=== PATIENT | male | born 1950 | race Caucasian/White ===

== ENCOUNTER 2017-02-19 20:19 | Inpatient (IN) ==
[2017-02-19] MEDS ORDERED: KETOROLAC 30 MG/1 ML VIAL IV STA (21:39)
[2017-02-19] MEDS ORDERED: KETOROLAC 30 MG/1 ML VIAL ONE (21:43)
--- NOTE | 2017-02-19 22:35 | Emergency Department Note ---
IJhony Emily, am scribing for, and in the presence of, George Siegel MD 21: 44. Robbin Houston Charles R, MD, personally performed the services described in this documentation, ascribed by Judith Booker in my presence, and it is both accurate and complete . Arrival - Arrival Chief Complaint: Fall Stated Complaint: fall ED Nursing Triage Note: pt to room via metro stretcher. pt lost balance falling earlier today at 1630. pt c/o back pain at this time. Mode of Arrival: Stretcher Limitations: No Limitations Source: Patient Time Seen by Provider: 02/19/17 21:29 - History of Present Illness HPI Narrative: Pt is a 66 y/o male who was brought into ED by EMS for further evaluation of lower back s/p of falling on his right side at home few hours [employer] [employer]. Pt uses walker and lost balance that caused fall. Pt has associated sxs of mild left shoulder and arm soreness, but denies hitting head or bilateral ankle pain. PMHx of peripheral neurology in bilateral lower extremities with prescriptions leg wrap. Onset (ago): hour(s) Consistency: constant Severity: mild, moderate Severity scale (1-10): 4 Quality: aching Allergies/Adverse Reactions: Allergies Allergy/AdvReac Type Severity Reaction Status Date / Time No Known Allergies Allergy Verified 02/19/17 20:46 Home Medications: Home Medications Medication Instructions Recorded Confirmed Type Polyethylene Glycol Powder 17 gm PO DAILY PRN #0 powder 11/16/15 12/08/15 Rx [Miralax] Clorazepate [Tranxene] 7.5 mg PO Q8HR tablet 12/10/15 Rx Docusate Sodium Cap [Colace Cap] 100 mg PO BID capsule 12/10/15 Rx Famotidine Tab [Pepcid Tab] 40 mg PO DAILY tablet 12/10/15 Rx Folic Acid Tab 1 mg PO BID tablet 12/10/15 Rx Furosemide Tab [Lasix Tab] 20 mg PO BID DIURETIC tablet 12/10/15 Rx Lactulose Liquid [Chronulac] 20 gm PO TID PRN #0 udcup 12/10/15 Rx Potassium Chloride Liquid 40 meq PO BID udcup 12/10/15 Rx Skin Healing Oint (Aquaphor) 1 applic TOP DAILY ointment 12/10/15 Rx [Aquaphor] traZODone [Desyrel] 75 mg PO 1800 tablet 12/10/15 Rx Alum/Mag/Simeth Max Str Liquid 30 ml PO Q4H PRN #0 udcup 12/14/15 Rx [Mylanta Max Strength Liquid] Lidocaine 5% Patch [Lidoderm 5% 1 patch TRANSDERM DAILY #30 patch 12/14/15 Rx Patch] fentaNYL 12 MCG/HR PATCH 1 patch TRANSDERM Q3DAY #10 patch 12/14/15 Rx [Duragesic 12 Patch] Hydrocodone/Acetaminophen [[place] 1 each PO Q6-8H PRN #20 tablet 02/19/17 Rx 7.5-325 Tablet] Methocarbamol Tab [Robaxin Tab] 750 mg PO QID PRN #20 tablet 02/19/17 Rx Review of System - Review of System 12 point system: reviewed and no additional remarkable complaints except as stated - Review of System Constitutional: Absent: chills, fever Respiratory: Absent: respiratory distress Cardiovascular: Absent: chest pain, syncope Gastrointestinal: Absent: abdominal pain Musculoskeletal: Present: arm pain (mild left shoulder pain), lower back pain. Absent: back pain, leg pain, neck pain Skin: Absent: rash Neurological: Present: abnormal gait. Absent: headache Medical,Surgical,& Family Hx - Medical History Cardio: History of: Hypertension Psychological: History of: Anxiety Disorders, Depression Neurology: History of: Vertigo HEENT: History of: Eye Problem (WEARS GLASSES, NEAR SIGHTED, CATARACT LEFT EYE) Respiratory: History of: Bronchitis, COPD, Intubation, Pulmonary Hypertension, Pneumonia Genitourinary: History of: Prostate Problems (PROSTATE CA) Gastrointestinal: History of: Gastrointestinal Bleed, Hemorrhoids Musculoskeletal: History of: Back/Neck Problems, Degenerative Disk Disease, Herniated Disk, Musculoskeletal Problems (suspected MS, fx T-) Other: History of: Miscellaneous Medical Problems (ankylosing spondylitis) - Surgical History Cardiac Surgeries: Patient Denies: Cardiac Catheterization Thoracic Surgeries: Patient denies;: Organ Transplant Neurologic Surgeries: Patient denies: Neurologic Surgery HEENT Surgeries: Surgical HX of: Tonsilectomy & Adenoidectomy Abdominal Surgeries: Patient denies: Abdominal Surgery Reproductive Surgeries: Surgical HX of;: Prostate Surgery (PROSTATECTOMY) Orthopedic Surgeries: Surgical HX of;: Orthopedic Surgery (RIGHT ANKLE FRACTURE) - Family History Family History: Reports;: Family Cancer (FATHER (TESTICULAR CA)), Family Diabetes (FATHER), Family Heart Disease (MOTHER), Family Hypertension - Social History Smoking Status: Former smoker Frequency of Alcohol Use: None Type of Drug Use: None Marital Status: Lives With:: Spouse Functional capacity: uses cane/walker Exam Vital Signs: Vital Signs Temperature 98.2 F 02/19/17 20:39 Pulse Rate 108 H 02/19/17 20:39 Respiratory Rate 18 02/19/17 20:39 Blood Pressure 100/56 02/19/17 20:39 O2 Sat by Pulse Oximetry 96 02/19/17 20:39 - General General appearance: alert, in no apparent distress - Head Head exam: Present: atraumatic, normocephalic - Eye Eye exam: Present: PERRL, EOMI - ENT ENT exam: Present: mucous membranes moist. Absent: mucous membranes dry - Neck Neck exam: Present: full ROM. Absent: tenderness - Chest Chest inspection: Present: symmetric chest wall rise. Absent: tenderness - Respiratory Respiratory exam: Present: normal lung sounds bilaterally. Absent: respiratory distress - Cardiovascular Cardiovascular exam: Present: regular rate, normal rhythm, normal heart sounds - Abdominal Exam Abdominal exam: Present: soft, distention (chronic protrudent). Absent: tenderness, guarding, rebound - Extremities Exam Extremities exam: Present: full ROM, pedal edema (+2 in right leg and +1 in left leg; with chronic swelling and discoloration). Absent: tenderness - Back Exam Back exam: Present: tenderness (at the paraspinal muscle and lumbar thoracic region). Absent: full ROM (limited ROM sceondary to pain) - Neurological Exam Neurological exam: Present: alert, oriented X3, CN II-XII intact. Absent: motor sensory deficit - Psychiatric Psychiatric exam: Present: normal affect, normal mood - Skin Skin exam: Present: warm, dry. Absent: normal color Course Course Narrative: Patient could not tolerate x-rays. Patient has no visible signs of injury. Will send patient home with pain medication follow-up to the ER for any acute changes. Disposition Clinical Impression: Mechanical fall, Acute myofascial strain of lumbosacral region, Shoulder contusion, Generalized weakness Case discussed with: patient, patient's family Disposition: Disch To Home/Self Care Condition: Stable Instructions: Contusion in Adults (ED), Fall Prevention for Older Adults (ED) Additional Instructions: Return the ER for acute changes. Follow-up primary care doctor Prescriptions: Hydrocodone/Acetaminophen [[place] 7.5-325 Tablet] 1 each PO Q6-8H PRN #20 tablet PRN Reason: Pain Methocarbamol Tab [Robaxin Tab] 750 mg PO QID PRN #20 tablet PRN Reason: Muscle Pain Time of Disposition: 22:33 Contact your physician if you experience:: fever over 101, Difficulty voiding, Redness or swelling, Nausea/Vomiting, Shortness of breath, Bleeding, pain uncontrolled by pain medications, Other Return to the Emergency Department if:: fever over 101, Difficulty voiding, Redness or swelling, Nausea/Vomiting, Shortness of breath, Bleeding, pain uncontrolled by pain medications, Other
--- NOTE | 2017-02-19 23:25 | Hospitalist History & Physical ---
Assessment and Plan (1) Acute myofascial strain of lumbosacral region Status: Acute Current Visit: Yes (2) Ankylosing spondylitis Status: Acute Current Visit: No (3) Chronic venous stasis dermatitis Status: Acute Current Visit: No (4) COPD (chronic obstructive pulmonary disease) Status: Chronic Assessment and plan: Is quite evident this patient's cannot care for him at home. I am going to consult Dr. Romero for his input on his clinic patient. We will get Dr. Hoskins to see him also for the chronic pain. Treat his pain tonight with [place] 7.5 every 4 hours as needed and morphine for breakthrough pain. I am going to order CT scan of the lumbar spine in the morning. Maybe he can bear with it better then. CBC and CMP have been ordered and will need follow-up.. Current Visit: No (5) Intractable back pain Status: Acute Current Visit: Yes History of Present Illness Chief complaint: Intractable back pain History of present illness: Mr. Fischer is a 66 year old male with past medical history of chronic pain, ankylosing spondylitis, COPD and peripheral neuropathy who presents to our hospital status post twisting his back. Patient reports that he uses a walker. He fell while trying to walk. Currently he is unable to have a CAT scan done because he cannot lay flat. He says he did not hurt his back he just twisted it. He fell on his left side there are no obvious mckeon. I came to evaluate him per Dr. Siegel's request. Patient's reports that she cannot care for him in this shape that he did not currently. I have to agree with her his pain seems intractable if he moves. Discussed different options with him and told him we could admit him under observation and get Dr. julian to see him and maybe he could have a CT scan done in the morning. He had a previous hospital admission last year for a very similar presentation. Feel that we can admit the patient consult his primary care provider which is Dr. Romero and pain management. Patient also uses [place] wraps as guided by Dr. Odell. Home Medications Medication Instructions Recorded Confirmed Type Polyethylene Glycol Powder 17 gm PO DAILY PRN #0 powder 11/16/15 12/08/15 Rx [Miralax] Clorazepate [Tranxene] 7.5 mg PO Q8HR tablet 12/10/15 Rx Docusate Sodium Cap [Colace Cap] 100 mg PO BID capsule 12/10/15 Rx Famotidine Tab [Pepcid Tab] 40 mg PO DAILY tablet 12/10/15 Rx Folic Acid Tab 1 mg PO BID tablet 12/10/15 Rx Furosemide Tab [Lasix Tab] 20 mg PO BID DIURETIC tablet 12/10/15 Rx Lactulose Liquid [Chronulac] 20 gm PO TID PRN #0 udcup 12/10/15 Rx Potassium Chloride Liquid 40 meq PO BID udcup 12/10/15 Rx Skin Healing Oint (Aquaphor) 1 applic TOP DAILY ointment 12/10/15 Rx [Aquaphor] traZODone [Desyrel] 75 mg PO 1800 tablet 12/10/15 Rx Alum/Mag/Simeth Max Str Liquid 30 ml PO Q4H PRN #0 udcup 12/14/15 Rx [Mylanta Max Strength Liquid] Lidocaine 5% Patch [Lidoderm 5% 1 patch TRANSDERM DAILY #30 patch 12/14/15 Rx Patch] fentaNYL 12 MCG/HR PATCH 1 patch TRANSDERM Q3DAY #10 patch 12/14/15 Rx [Duragesic 12 Patch] Hydrocodone/Acetaminophen [[place] 1 each PO Q6-8H PRN #20 tablet 02/19/17 Rx 7.5-325 Tablet] Methocarbamol Tab [Robaxin Tab] 750 mg PO QID PRN #20 tablet 02/19/17 Rx Allergies Allergy/AdvReac Type Severity Reaction Status Date / Time No Known Allergies Allergy Verified 02/19/17 20:46 Medical,Surgical,& Family Hx - Medical History Cardio: History of: Hypertension Psychological: History of: Anxiety Disorders, Depression Neurology: History of: Vertigo HEENT: History of: Eye Problem (WEARS GLASSES, NEAR SIGHTED, CATARACT LEFT EYE) Respiratory: History of: Bronchitis, COPD, Intubation, Pulmonary Hypertension, Pneumonia Genitourinary: History of: Prostate Problems (PROSTATE CA) Gastrointestinal: History of: Gastrointestinal Bleed, Hemorrhoids Musculoskeletal: History of: Back/Neck Problems, Degenerative Disk Disease, Herniated Disk, Musculoskeletal Problems (suspected MS, fx T-) Other: History of: Miscellaneous Medical Problems (ankylosing spondylitis) - Surgical History Cardiac Surgeries: Patient Denies: Cardiac Catheterization Thoracic Surgeries: Patient denies;: Organ Transplant Neurologic Surgeries: Patient denies: Neurologic Surgery HEENT Surgeries: Surgical HX of: Tonsilectomy & Adenoidectomy Abdominal Surgeries: Patient denies: Abdominal Surgery Reproductive Surgeries: Surgical HX of;: Prostate Surgery (PROSTATECTOMY) Orthopedic Surgeries: Surgical HX of;: Orthopedic Surgery (RIGHT ANKLE FRACTURE) - Family History Family History: Reports;: Family Cancer (FATHER (TESTICULAR CA)), Family Diabetes (FATHER), Family Heart Disease (MOTHER), Family Hypertension - Social History Smoking Status: Former smoker Frequency of Alcohol Use: None Type of Drug Use: None 12 point system: reviewed and no additional remarkable complaints except as stated Exam - Constitutional Vitals: Period Temp Pulse Resp BP Sys/Ivey Pulse Ox Last 24 Hr 98.2 F-98.2 F 108-108 18-18 100-100/56-56 96 General appearance: over weight - Head Head exam: Present: normal inspection - Eye Eye exam: Present: EOMI Pupils: Present: SAMSON - ENT ENT exam: Present: normal exam - Neck Neck exam: Present: normal inspection - Respiratory Respiratory exam: Present: clear to auscultation bilaterally - Cardiovascular Cardiovascular exam: Present: regular rate and rhythm - GI/Abdominal GI/Abdominal exam: Present: normal bowel sounds - Extremities Exam Extremities exam: Present: normal inspection - Back Exam Back exam: Present: other (Pain upon at the [place] spinal muscle and lumbar thoracic region unable to really participate in full range of motion exam secondary to pain) - Neurological Exam Neurological exam: Present: alert - Psychiatric Psychiatric exam: Present: normal affect - Skin Skin exam: Present: other (Patient has a lot of discoloration on the lower extremities) Results - Labs Labs: Labs are currently pending
[2017-02-19] MEDS ORDERED: ONDANSETRON 4 MG/2 ML VIAL IV PRN (23:33)
[2017-02-20] MEDS: MORPHINE 2 MG/1 ML SYRINGE IV PRN ×4 (01:43→22:13)
[2017-02-20] MEDS: LORazepam 1 MG TABLET PO PRN (01:44)
[2017-02-20 02:13] LABS: Basophils % 0.3 % (0.0-0.8); Eosinophils % 0.1 % (0.00-10.9); Hematocrit 42.2 VOL% (42.0-52.0); Hemoglobin 14.5 GM/DL (14.0-18.0); Immature Granulocytes % 0.5 %; Immature Granulocytes Absolute 0.05 #; Lymphocytes # 0.4 10*3/uL (1.4-4.0); Lymphocytes % 3.8 % (21.2-54.2); Mean Corpuscular HGB Conc 34.4 GM/DL (32-36); Mean Corpuscular Hemoglobin 34 PG (27-34); Mean Corpuscular Volume 98.8 FL (87-102); Mean Platelet Volume 11.2 FL (9.6-12.0); Monocytes # 0.9 10*3/uL (0.11-0.8); Monocytes % 9.2 % (1.7-12.7); Neutrophils # 8.8 10*3/uL (1.4-7.4); Neutrophils % 86.1 % (38.7-73.9); Platelet Count 185 T/CUMM (130-400); Red Blood Count 4.27 MC/CUMM (3.8-5.5); Red Cell Distribution Width 12.8 % (9.3-17.3); White Blood Count 10.3 T/CUMM (4-12)
[2017-02-20 02:40] LABS: Lymphocytes 4 % (20-55); Segmented Neutrophils 87 % (50-85)
[2017-02-20 02:41] LABS: Platelet Estimate Normal
[2017-02-20 02:42] LABS: Total Cells Counted 100
[2017-02-20 03:03] LABS: Albumin 3.8 G/DL (3.4-5.0); Bilirubin,Total 0.6 MG/DL (0.2-1.0); Calcium 9.1 MG/DL (8.5-10.1); Osmolality,Calculated 282.3 MOS/KG (273-304); Potassium 3.9 MMOL/L (3.5-5.1); Total Protein 7.8 G/DL (6.4-8.3)
--- NOTE | 2017-02-20 08:41 | CT Report ---
CT lumbar spine wo con Indication: Intractable low back pain Comparison: CT lumbar spine dated December 08, 2015 Technique: Multiple axial tomographic images of the lumbar spine were obtained without the use of intravenous contrast. Coronal and sagittal reformatted images provided. Findings: Redemonstration of diffuse osteopenia. It would be difficult to exclude bone lesion. Multilevel bridging osteophytes of the lumbar spine. There is continued mild levoconvex curvature of the lumbar spine without significant anterolisthesis or retrolisthesis. Vertebral body heights appear maintained. There is prominence of the spinous processes which can be seen with Weyauwega's disease. Multilevel fusion of predominantly left-sided posterior elements again suggested. Posterior facet arthropathy of the lumbar spine present moderate bilateral neuroforaminal narrowing at L4-5 and L5-S1. Severe loss of disc space height at L5-S1 with endplate change. No gross evidence of significant spinal canal narrowing. Grossly stable left pleural effusion with suggested pleural thickening. Mild right basilar atelectasis. Nonspecific bilateral perinephric fat stranding. Atherosclerotic calcifications. Ankylosis of the bilateral SI joints. IMPRESSION: No significant change from December 08, 2015. Degenerative change of the lumbar spine as detailed above. There are multilevel bridging osteophytes as well as osseous fusion of posterior elements and ankylosis of the bilateral SI joints. Inflammatory arthropathy such as ankylosing spondylitis not excluded. There is diffuse osteopenia as well as levoconvex curvature of the spine.There is prominence of the spinous processes which can be seen with Weyauwega's disease. Grossly stable left pleural effusion with suggested pleural thickening. Mild right basilar atelectasis. Detailed findings as above. The CT exam was performed using one or more of the following dose reduction techniques: Automated exposure control, adjustment of the mA and/or kV according to patient size, or use of iterative reconstruction technique. PROCEDURE INTERPRETED AT [facility] DEPARTMENT OF RADIOLOGY Final Report Signed by: Dr Candido Alonzo
[2017-02-20] MEDS: ENOXAPARIN 40 MG/0.4 ML SYRINGE SUBCUT SCH (08:42)
[2017-02-20] MEDS: THIAMINE 100 MG TABLET PO SCH (08:42)
[2017-02-20] MEDS: MULTIVITAMIN (CENTRUM) TABLET PO SCH (08:43)
[2017-02-20] MEDS: PANTOPRAZOLE 40 MG TABLET PO SCH (08:43)
[2017-02-20] MEDS: FOLIC ACID 1 MG TABLET PO SCH (08:45)
--- NOTE | 2017-02-20 10:37 | Pulmonology Consult Note ---
History of Present Illness Chief complaint: Acute back pain. Ankylosing spondylitis. Acute iritis History of present illness: Mr. Fischer is a 66 year old white male longtime patient of mine. I been asked see this patient in consultation. This man has ankylosing spondylitis. He fell and hurt his back. Initially he felt the pain was in his thoracic back but now it settled into his lumbar area. He is nearly incapacitated by the pain and immobility. He is a very large man and his who is able bodied is not able to handle him with this much pain. Patient's had a CT of the lumbar spine and no acute changes were seen. Patient has a hard time line on the table. We will try a bone scan to make sure that there is nothing to suggest acute compression fracture. In the meantime I have made adjustments in the patient's medicines that may help him a little more. In addition to the patient's back pain he is suffering from an acute iritis which is related to his ankylosing spondylitis. He is on drops with atropine and prednisone. He says he is beginning to improve. Patient has underlying COPD and asthma this is been stable. The patient has chronic lower extremity edema he has had recurrent episodes of lymphedema. He also has a peripheral sensory neuropathy. I am going to ask for neurology evaluation. The remainder review of systems is negative. Allergies. Codeine Medicines. See below. Immunizations. Pneumovax was given 07/17/2014 and is current Past history. Prostate cancer diagnosed in 2006. Patient had robot assisted radical laparoscopic prostatectomy by Dr. Gino Hunter at [facility]. He had a Parrish grade 4+3 with a score of 7 with multiple foci of parenchymal invasion identified involving both lobes and approximately 40-45% of the prostate tissue. Urethral bladder neck and peripheral soft tissue margins were free of tumor. The right and left seminal vessels were negative. This was a pathologic stage pT2c, NX MX. Patient has ankylosing spondylitis with a past history of underlying questionable spinal cord disease. He has symptoms of spinal stenosis. Other problems include high blood pressure. August 2006 he had decortication of left lung for benign pleural lesions related to an empyema. This left him with residual pleural scarring which is gradually improved but is never quite resolved. He was in [facility] in November 2006 with transient loss of feeling of muscle activity in both lower extremities while sitting. At that time he also had a left upper extremity symptoms and initially this was thought to be multiple sclerosis. He was reevaluated and he had a neurology consultation with Dr. Antwon Joy Junior and in the end it appeared that all of his symptoms are related to spinal stenosis and there is been no significant recurrence since that time. There is a history of COPD with asthma. In the past the patient has situational depression and this is resolved. 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 In October 2013 he had a T9 compression fracture and he had a kyphoplasty. Patient was in [facility] in November and December 2015 secondary to hyponatremia. Family history. Patient's mother's twin sister put in (his aunt) had thyroid cancer at age 70-75. His father was a World War II and a of the [place] and had 3 tours in [place]. Patient's father was diagnosed with schizophrenia. Mr. Keith has [place] ancestry. There is an [facility] Social history. Patient is . He has been a smoker in the past. He stopped smoking in July 2016. 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 Old records from my office were obtained and reviewed. White count is 10,300 with 86 segs. H&H is 14.5/42.2 with normal indices. Platelet count is 185,000. Sodium potassium chloride are normal. Calcium is normal. Liver function tests are normal protein and albumin are normal globulins 4.0. Creatinine is 0.70 and BUN is 16. No other test are available. CT of the lumbar spine. See report. Physical exam. Psychiatric. Oriented 3. Neurologic. Cranial nerves are intact. Patient has iritis in both eyes. Long track motor functions intact. He complains of numbness of his lower extremities Face is symmetrical. Lips and tongue are normal Neck. No masses. Decreased range of motion. Thoracic and lumbar spine revealed decreased range of motion. Patient has tenderness along his lumbar spine and associated muscle spasm. Chest symmetrical. Pectus excavatum. Clear breath sounds. Abdomen. Protuberant. This is his usual state. Active bowel sounds. Nontender. and rectal deferred Lower extremities reveal chronic 1-1/2 over 4 pedal and pretibial edema that extends to the tibial plateaus and has overlying skin discoloration. Heart. No gallop Arterial carotid upstrokes are normal. Upper extremity pulses are palpable lower extremity pulses are nonpalpable. There is no evidence of lower extremity ischemia Venous exam of the neck and upper extremities are normal lower extremities show chronic venous stasis changes. Skin. Face and hands show no cancerous infectious lesions lower extremities show evidence of chronic venous stasis. The remainder of the exam is noncontributory. Impression. 1. Ankylosing spondylitis. Probable spinal stenosis 2. Past history of T9 compression fracture requiring kyphoplasty October 2013 3. Acute fall resulting in severe low back pain with immobility. Look for compression fracture 4. Peripheral sensory neuropathy. Symptoms have gradually worsened 5. Chronic venous stasis of the lower extremities 6. Vitamin B12 deficiency. On replacement. 7. Past history tobacco abuse 8. COPD/asthma 8. Past history of high blood pressure 9. Hypothyroidism 10. Hyperlipidemia 11. Past history of prostate cancer. Resected without recurrence. 12. See past history Plan. 1. Bone scan 2. Neurology consult per Govind concerning peripheral neuropathy 3. IV push Decadron 4. IV Robaxin 5. IV Toradol 6. Cytotec. 7. Watch for constipation 8. Have reviewed and reconciled his home medicines 9. See orders Home Medications Medication Instructions Recorded Confirmed Type Hydrocodone/Acetaminophen [[place] 1 each PO Q6-8H PRN #20 tablet 02/19/17 Rx 7.5-325 Tablet] Methocarbamol Tab [Robaxin Tab] 750 mg PO QID PRN #20 tablet 02/19/17 Rx Atropine Sulfate [Atropine 1% Oph 1 drop BOTH EYES TID 02/20/17 02/20/17 History Soln] Furosemide Tab [Lasix Tab] 40 mg PO BID DIURETIC 02/20/17 02/20/17 History Imipramine HCl 25 mg PO DAILY 02/20/17 02/20/17 History Levothyroxine Tab [Synthroid Tab] 100 mcg PO DAILY@0700 02/20/17 02/20/17 History Potassium Chloride Liquid 20 meq PO BID 02/20/17 02/20/17 History Theophylline ER Tab 300 mg PO Q12H 02/20/17 02/20/17 History prednisoLONE AC 1% OPH SUSP [Pred 1 drop BOTH EYES QID 02/20/17 02/20/17 History Forte] traZODone [Desyrel] 100 mg PO BID 02/20/17 02/20/17 History Allergies Allergy/AdvReac Type Severity Reaction Status Date / Time No Known Allergies Allergy Verified 02/19/17 20:46 Exam (Pulmonay) H&P - Constitutional Vitals: Period Temp Pulse Resp BP Sys/Ivey Pulse Ox Last 24 Hr 97.9 F-98.2 F 98-118 16-22 100-150/56-93 91-96 Medical,Surgical,& Family Hx - Medical History Cardio: History of: Hypertension Psychological: History of: Anxiety Disorders, Depression Neurology: History of: Vertigo HEENT: History of: Eye Problem (WEARS GLASSES, NEAR SIGHTED, CATARACT LEFT EYE) Respiratory: History of: Bronchitis, COPD, Intubation, Pulmonary Hypertension, Pneumonia Genitourinary: History of: Prostate Problems (PROSTATE CA) Gastrointestinal: History of: Gastrointestinal Bleed, Hemorrhoids Musculoskeletal: History of: Back/Neck Problems, Degenerative Disk Disease, Herniated Disk, Musculoskeletal Problems (suspected MS, fx T-) Other: History of: Miscellaneous Medical Problems (ankylosing spondylitis) - Surgical History Cardiac Surgeries: Patient Denies: Femoral-Popliteal Bypass Graft, Cardiac Catheterization, Cardiac Surgery, Carotid Endarterectomy, Internal Defibrillator, Vascular Access Devices Thoracic Surgeries: Patient denies;: Organ Transplant Neurologic Surgeries: Patient denies: Neurologic Surgery HEENT Surgeries: Surgical HX of: Tonsilectomy & Adenoidectomy Patient denies: Carotid Endarterectomy Abdominal Surgeries: Patient denies: Abdominal Surgery, Splenectomy Reproductive Surgeries: Surgical HX of;: Prostate Surgery (PROSTATECTOMY) Orthopedic Surgeries: Surgical HX of;: Orthopedic Surgery (RIGHT ANKLE FRACTURE) - Family History Family History: Reports;: Family Cancer (FATHER (TESTICULAR CA)), Family Diabetes (FATHER), Family Heart Disease (MOTHER), Family Hypertension - Social History Smoking Status: Former smoker Frequency of Alcohol Use: Frequently Type of Drug Use: Marijuana Results - Labs CBC & BMP: 02/20/17 01:56 02/20/17 01:56 Specialty Discharge - Follow Up or Referrals
[2017-02-20] MEDS: DEXAMETHASONE 4 MG TABLET PO SCH ×3 (11:29→20:54)
[2017-02-20] MEDS: POTASSIUM CHLORIDE 20 MEQ/15 ML UDCUP PO SCH ×2 (11:29→20:54)
[2017-02-20] MEDS: traZODone 50 MG TABLET PO SCH ×2 (11:29→20:54)
[2017-02-20] MEDS: KETOROLAC 15 MG/1 ML VIAL IV SCH ×2 (11:30→17:44)
[2017-02-20] MEDS: THEOPHYLLINE ER 300 MG TABLET PO SCH ×2 (11:30→22:16)
[2017-02-20] MEDS: IMIPRAMINE 25 MG TABLET PO SCH (11:30)
[2017-02-20] MEDS: miSOPROStol 200 MCG TABLET PO SCH (11:30)
--- NOTE | 2017-02-20 11:59 | Pain Management Consult Note ---
Assessment and Plan (1) Intractable back pain Status: Acute Assessment and plan: I have reviewed the CT scan lumbar spine with no acute changes and will obtain a CT scan of thoracic spine to rule out acute fracture I will also add a 12 mcg an hour Duragesic patch Current Visit: Yes History of Present Illness Chief complaint: Severe mid to low back pain History of present illness: Mr. Fischer is a 66 year old male Patient well-known to me with previous thoracic kyphoplasty procedures done by me. Patient had a fall last yesterday at home and hit his left shoulder and elbow according to the .. There was no loss of consciousness. Patient has had a CT of the lumbar spine which shows no acute changes. I believe it would be helpful to obtain an x-ray or CT scan of the thoracic spine. Patient has already refused an x-ray of the thoracic spine and a bone scan. I will try to see if the CT scan thoracic spine can be obtained Home Medications Medication Instructions Recorded Confirmed Type Hydrocodone/Acetaminophen [[place] 1 each PO Q6-8H PRN #20 tablet 02/19/17 Rx 7.5-325 Tablet] Methocarbamol Tab [Robaxin Tab] 750 mg PO QID PRN #20 tablet 02/19/17 Rx Atropine Sulfate [Atropine 1% Oph 1 drop BOTH EYES TID 02/20/17 02/20/17 History Soln] Furosemide Tab [Lasix Tab] 40 mg PO BID DIURETIC 02/20/17 02/20/17 History Imipramine HCl 25 mg PO DAILY 02/20/17 02/20/17 History Levothyroxine Tab [Synthroid Tab] 100 mcg PO DAILY@0700 02/20/17 02/20/17 History Potassium Chloride Liquid 20 meq PO BID 02/20/17 02/20/17 History Theophylline ER Tab 300 mg PO Q12H 02/20/17 02/20/17 History prednisoLONE AC 1% OPH SUSP [Pred 1 drop BOTH EYES QID 02/20/17 02/20/17 History Forte] traZODone [Desyrel] 100 mg PO BID 02/20/17 02/20/17 History Allergies Allergy/AdvReac Type Severity Reaction Status Date / Time No Known Allergies Allergy Verified 02/19/17 20:46 Medical,Surgical,& Family Hx - Medical History Cardio: History of: Hypertension Psychological: History of: Anxiety Disorders, Depression Neurology: History of: Vertigo HEENT: History of: Eye Problem (WEARS GLASSES, NEAR SIGHTED, CATARACT LEFT EYE) Respiratory: History of: Bronchitis, COPD, Intubation, Pulmonary Hypertension, Pneumonia Genitourinary: History of: Prostate Problems (PROSTATE CA) Gastrointestinal: History of: Gastrointestinal Bleed, Hemorrhoids Musculoskeletal: History of: Back/Neck Problems, Degenerative Disk Disease, Herniated Disk, Musculoskeletal Problems (suspected MS, fx -) Other: History of: Miscellaneous Medical Problems (ankylosing spondylitis) - Surgical History Cardiac Surgeries: Patient Denies: Femoral-Popliteal Bypass Graft, Cardiac Catheterization, Cardiac Surgery, Carotid Endarterectomy, Internal Defibrillator, Vascular Access Devices Thoracic Surgeries: Patient denies;: Organ Transplant Neurologic Surgeries: Patient denies: Neurologic Surgery HEENT Surgeries: Surgical HX of: Tonsilectomy & Adenoidectomy Patient denies: Carotid Endarterectomy Abdominal Surgeries: Patient denies: Abdominal Surgery, Splenectomy Reproductive Surgeries: Surgical HX of;: Prostate Surgery (PROSTATECTOMY) Orthopedic Surgeries: Surgical HX of;: Orthopedic Surgery (RIGHT ANKLE FRACTURE) - Family History Family History: Reports;: Family Cancer (FATHER (TESTICULAR CA)), Family Diabetes (FATHER), Family Heart Disease (MOTHER), Family Hypertension - Social History Smoking Status: Former smoker Frequency of Alcohol Use: Frequently Type of Drug Use: Marijuana 12 point system: reviewed and no additional remarkable complaints except as stated Exam - Constitutional Vitals: Period Temp Pulse Resp BP Sys/Ivey Pulse Ox Last 24 Hr 97.2 F-98.2 F 98-118 16-22 100-167/56-93 91-98 General appearance: mild distress - Head Head exam: Present: normal inspection - Eye Eye exam: Present: EOMI Pupils: Present: SAMSON - ENT Ear exam: Present: intact Mouth exam: Present: normal external inspection - Neck Neck exam: Present: normal inspection - Respiratory Respiratory exam: Present: decreased breath sounds - Cardiovascular Cardiovascular exam: Present: RRR - GI/Abdominal GI/Abdominal exam: Present: distended - Extremities Exam Extremities exam: Present: normal inspection - Back Exam Back exam: Present: vertebral tenderness - Neurological Exam Neurological exam: Present: abnormal gait - Skin Skin exam: Present: normal color Results - Labs CBC & BMP: 02/20/17 01:56 02/20/17 01:56 Lab Results: I have reviewed the past 24 hour labs Specialty Discharge - Follow Up or Referrals
[2017-02-20 12:19] LABS: Folate > 24.0 NG/ML (5.4-24.0); Vitamin B12 1076 PG/ML (211-911)
[2017-02-20 12:27] LABS: Free T4 (Free Thyroxine) 1.21 NG/DL (0.76-1.46); Thyroid Stimulating Hormone 1.24 uIU/ml (0.358-3.74)
[2017-02-20] MEDS: prednisoLONE ACETATE 1% OPH SUSP 5 ML BOTTLE BOTH EYES SCH ×3 (12:53→20:56)
[2017-02-20] MEDS: METHOCARBAMOL INJ 500 MG in SODIUM CHLORIDE 0.9% 100 ML IV SCH ×2 (13:08→17:44)
[2017-02-20] MEDS: fentaNYL 12 MCG/HR PATCH TRANSDERM SCH (13:09)
[2017-02-20] MEDS ORDERED: TUBERCULIN SKIN TEST 0.1 ML SYRINGE INTRADERM ONE (13:28)
--- NOTE | 2017-02-20 14:19 | Event Note ---
Patient gone for CT.
[2017-02-20] MEDS: ATROPINE 1 % OPH SOLN 5 ML BOTTLE BOTH EYES SCH ×2 (15:29→20:56)
[2017-02-20] MEDS: FUROSEMIDE 20 MG TABLET PO SCH (15:29)
--- NOTE | 2017-02-20 19:52 | Hospitalist Progress Note ---
Assessment and Plan - Time spent with patient Time spent with patient: Greater than 30 minutes (1) Generalized weakness Status: Chronic Current Visit: Yes (2) Ankylosing spondylitis Status: Chronic Assessment and plan: CT reported today that shows no acute changes. Current Visit: No (3) Chronic back pain Status: Chronic Current Visit: No Qualifiers: Back pain location: low back pain (4) Ankylosing spondylitis Status: Chronic Current Visit: No Qualifiers: Ankylosing spondylitis location: multiple sites in spine Qualified Code(s) : M45.0 - Ankylosing spondylitis of multiple sites in spine (5) COPD (chronic obstructive pulmonary disease) Status: Chronic Assessment and plan: This appears to be stable. Current Visit: No (6) Weakness of both lower extremities Status: Chronic Assessment and plan: We will get physical therapy occupational therapy for this patient. Current Visit: No (7) Intractable back pain Status: Acute Current Visit: Yes Hospitalist: Subjective Interval history: The patient is sitting up in bed has very limited movement requires assistance even to move in bed. Had a CT scan that shows some degenerative changes. Further evaluation by neurology will be tomorrow as patient was not in room during neurology rounds. He has expressed a desire to go back home although family members have stated it is very limited as to care for this patient. Exam - Constitutional Vitals: Period Temp Pulse Resp BP Sys/Ivey Pulse Ox Last 24 Hr 96.9 F-98.2 F 98-118 16-22 100-167/56-93 91-98 General appearance: over weight - Head Head exam: Present: normal inspection - Respiratory Respiratory exam: Present: clear to auscultation bilaterally - Cardiovascular Cardiovascular exam: Present: regular rate and rhythm - GI/Abdominal GI/Abdominal exam: Present: normal bowel sounds - Extremities Exam Extremities exam: Present: other (Decreased range of motion.) - Neurological Exam Neurological exam: Present: alert, oriented X3 - Psychiatric Psychiatric exam: Present: normal affect - Skin Skin exam: Present: normal color, dry Results - Labs CBC & BMP: 02/20/17 01:56 02/20/17 01:56 Specialty Discharge - Follow Up or Referrals
[2017-02-20] MEDS: amLODIPine 10 MG TABLET PO SCH (22:13)
[2017-02-21] MEDS: KETOROLAC 15 MG/1 ML VIAL IV SCH ×3 (02:32→18:45)
[2017-02-21] MEDS: LORazepam 1 MG TABLET PO PRN (02:32)
[2017-02-21] MEDS: METHOCARBAMOL INJ 500 MG in SODIUM CHLORIDE 0.9% 100 ML IV SCH ×3 (02:32→18:45)
[2017-02-21] MEDS: LEVOTHYROXINE 100 MCG TABLET PO SCH (06:14)
--- NOTE | 2017-02-21 06:43 | Pain Management Progress Note ---
Assessment and Plan (1) Intractable back pain Status: Acute Assessment and plan: I have reviewed the CT scan lumbar spine with no acute changes and will obtain a CT scan of thoracic spine to rule out acute fracture I will also add a 12 mcg an hour Duragesic patch / continue current medications for pain Current Visit: Yes Pain - Subjective Interval history: he reports that the duragesic patch and robaxin are helping and pain is much better controlled this morning Exam - Constitutional Vitals: Period Temp Pulse Resp BP Sys/Ivey Pulse Ox Last 24 Hr 96.9 F-98.1 F 105-118 19-22 150-200/74-104 91-98 General appearance: no acute distress - Head Head exam: Present: normal inspection - Eye Eye exam: Present: EOMI, scleral icterus - ENT ENT exam: Present: normal exam Mouth exam: Present: normal external inspection - Neck Neck exam: Present: normal inspection - Respiratory Respiratory exam: Present: decreased breath sounds - Cardiovascular Cardiovascular exam: Present: RRR - GI/Abdominal GI/Abdominal exam: Present: distended - Extremities Exam Extremities exam: Present: normal capillary refill - Back Exam Back exam: Present: vertebral tenderness - Neurological Exam Neurological exam: Present: abnormal gait - Skin Skin exam: Present: normal color Results - Labs CBC & BMP: 02/20/17 01:56 02/20/17 01:56 Lab Results: I have reviewed the past 24 hour labs Specialty Discharge - Follow Up or Referrals
[2017-02-21] MEDS: ENOXAPARIN 40 MG/0.4 ML SYRINGE SUBCUT SCH (08:20)
[2017-02-21] MEDS: IMIPRAMINE 25 MG TABLET PO SCH (08:21)
[2017-02-21] MEDS: MORPHINE 2 MG/1 ML SYRINGE IV PRN ×2 (08:21→17:19)
[2017-02-21] MEDS: traZODone 50 MG TABLET PO SCH ×2 (08:21→20:36)
[2017-02-21] MEDS: THIAMINE 100 MG TABLET PO SCH (08:21)
[2017-02-21] MEDS: POTASSIUM CHLORIDE 20 MEQ/15 ML UDCUP PO SCH ×2 (08:21→20:37)
[2017-02-21] MEDS: FOLIC ACID 1 MG TABLET PO SCH (08:22)
[2017-02-21] MEDS: amLODIPine 10 MG TABLET PO SCH (08:22)
[2017-02-21] MEDS: PANTOPRAZOLE 40 MG TABLET PO SCH (08:23)
[2017-02-21] MEDS: FUROSEMIDE 20 MG TABLET PO SCH ×2 (08:23→15:09)
[2017-02-21] MEDS: prednisoLONE ACETATE 1% OPH SUSP 5 ML BOTTLE BOTH EYES SCH ×4 (08:23→20:37)
[2017-02-21] MEDS: miSOPROStol 200 MCG TABLET PO SCH (08:23)
[2017-02-21] MEDS: DEXAMETHASONE 4 MG TABLET PO SCH ×3 (08:23→20:36)
[2017-02-21] MEDS: MULTIVITAMIN (CENTRUM) TABLET PO SCH (08:23)
[2017-02-21] MEDS: ATROPINE 1 % OPH SOLN 5 ML BOTTLE BOTH EYES SCH ×3 (08:26→20:36)
[2017-02-21 08:58] LABS: Apearance,Urine CLEAR (Clear); Bilirubin,Urine Negative (Negative); Blood, Urine Negative (Negative); Glucose,Urine (UA) Negative (Negative); Ketones,Urine 20 mg/dL (Negative); Mucus,Urine Occasional /LPF (Occasional); Nitrite,Urine Negative (Negative); Protein,Urine Negative; RBC,Urine 4 /HPF (0-4); Squamous Epithelial Cell,Urine Occasional /HPF (0-10); Urine Color Yellow (Yellow); Urine Specific Gravity 1.016 (1.001-1.035); Urine Urobilinogen < 2.0 EU/DL (0.2-1.0); WBC,Urine <1 /HPF (0-6)
--- NOTE | 2017-02-21 09:20 | Hospitalist Progress Note ---
Assessment and Plan (1) Ankylosing spondylitis Status: Chronic Assessment and plan: Complicating acute fall with persistent back pain and limited mobility. Chronic degenerative changes with prior kyphoplasty prior studies do not show spinal compressive changes. Current Visit: No Qualifiers: Ankylosing spondylitis location: multiple sites in spine Qualified Code(s) : M45.0 - Ankylosing spondylitis of multiple sites in spine (2) COPD (chronic obstructive pulmonary disease) Status: Chronic Assessment and plan: Left sided pleural decortication. Current Visit: No Hospitalist: Subjective Interval history: 66-year-old male with established ankylosing spondylitis sustaining a fall. Although ambulatory prior to the event subsequently the patient has not been able to bear weight or otherwise move without severe pain he has been evaluated by pulmonary and by pain management. Lumbar CT scan shows stable degenerative changes. He has found Robaxin to be helpful still is unable to turn over in bed without severe pain. His vital signs have been stable overnight he is afebrile. He has chronic abnormalities in the left chest with history of decortication on that side for non-malignant lesion. Exam - Constitutional Vitals: Period Temp Pulse Resp BP Sys/Ivey Pulse Ox Last 24 Hr 96.9 F-97.8 F 100-115 19-22 128-200/74-104 91-98 General appearance: over weight - Respiratory Respiratory exam: Present: other (Reduce tidal volume with pectus excavatum). Absent: rales, rhonchi, wheezes - Cardiovascular Cardiovascular exam: Present: regular rate and rhythm - GI/Abdominal GI/Abdominal exam: Present: normal bowel sounds, distended (Diffuse tympany). Absent: tenderness, rebound - Extremities Exam Extremities exam: Present: other (Chronic venous stasis.). Absent: edema - Neurological Exam Neurological exam: Present: alert, oriented X3 Results - Labs CBC & BMP: 02/20/17 01:56 02/20/17 01:56 Specialty Discharge - Follow Up or Referrals
[2017-02-21] MEDS: THEOPHYLLINE ER 300 MG TABLET PO SCH ×2 (10:27→22:58)
--- NOTE | 2017-02-21 11:18 | Pulmonology Progress Note ---
Pulmonary - PN: Subj Interval history: Is a 66-year-old white male. I saw him in consultation on 02/20/2017. At that time I thought the patient was an inpatient. He needs to be an inpatient. He is sick and immobile and has a good bit of pain. He has several severe illnesses. He is requiring multiple IV medicines for treatment and control of his symptoms. Hopefully he will be a candidate for rehab down the road. My impressions were. 1. Ankylosing spondylitis. Probable spinal stenosis 2. Past history of T9 compression fracture requiring kyphoplasty October 2013 3. Acute fall resulting in severe low back pain with immobility. Look for compression fracture 4. Peripheral sensory neuropathy. Symptoms have gradually worsened 5. Chronic venous stasis of the lower extremities 6. Vitamin B12 deficiency. On replacement. 7. Past history tobacco abuse 8. COPD/asthma 8. Past history of high blood pressure 9. Hypothyroidism 10. Hyperlipidemia 11. Past history of prostate cancer. Resected without recurrence. 12. See past 02/21/2017. See my note above concerning inpatient status. This patient has multiple illnesses. He is immobile secondary to pain and his illnesses. He is requiring multiple IV medicines for control of his symptoms. He needs to be made an inpatient and hopefully he will qualify for rehab or something else that will help him recover. The present time he is on IV Robaxin, IV Toradol, IV Decadron, IV morphine and a fentanyl patch. He says some dysuria but his urinalysis shows no evidence of infection. A neurology consultation is pending. Patient has a peripheral neuropathy. He has had a history of B12 deficiency and takes shots for this. He also has had a history strongly suggestive of spinal stenosis in the past. He has underlying ankylosing spondylitis. In the distant past there was a question of multiple sclerosis. This did not buffing turner and counter to be the case. This best I can tell he does not have any symptoms of multiple sclerosis. I appreciate the consult from Dr. Hoskins. Physical exam. Vital signs. See below Psychiatric. Oriented 3. Neurologic. Cranial nerves are intact. Iritis appears to be resolving. Some decreased hearing acuity bilaterally. Patient can move all 4 extremities. He complains of decreased sensation over his lower extremities. Lower extremities. Chronic venous stasis changes of the skin. Underlying edema is improved with bed rest. Neck. Symmetrical. No meningismus. Lymphatics. No submandibular cervical supraclavicular or epitrochlear adenopathy Chest. Symmetrical. Pectus excavatum. No chest wall tenderness. Breath sounds are clear Heart. No gallop Abdomen. Lax abdominal musculature. Positive bowel sounds. The remainder the physical exam is noncontributory Plan. 02/20/2017 1. Bone scan 2. Neurology consult per Govind concerning peripheral neuropathy 3. IV push Decadron 4. IV Robaxin 5. IV Toradol 6. Cytotec. 7. Watch for constipation 8. Have reviewed and reconciled his home medicines 9. See orders 02/21/2017. 1. See today's note above. Exam (Progress Note) - Constitutional Vitals: Period Temp Pulse Resp BP Sys/Ivey Pulse Ox Last 24 Hr 96.9 F-97.8 F 100-115 19-22 128-200/74-104 91-98 Results - Labs CBC & BMP: 02/20/17 01:56 02/20/17 01:56 Specialty Discharge - Follow Up or Referrals
--- NOTE | 2017-02-21 14:33 | Neurology Consult Note ---
History of Present Illness History of present illness: Mr. Fischer is a 66 year old right-handed white gentleman with past medical history of chronic pain, ankylosing spondylitis, COPD and peripheral neuropathy who presents to the hospital status post twisting his back. Patient reports that he uses a walker. He fell while trying to walk. Currently he is unable to have a CAT scan or MRI scan done because he cannot lay flat. He says he did not hurt his back he just twisted it. He fell on his left side there are no obvious mckeon. Patient's reports that she cannot care for him in this shape that he did not currently. Patient reported that for last 2 weeks he has been feeling increasing numbness and tingling in the lower extremities which is noticeable. He had a previous hospital admission last year for a very similar presentation. He has seen by Dr. Rufino nino in the past and was diagnosed with peripheral neuropathy. Etiology is not clear Home Medications Medication Instructions Recorded Confirmed Type Hydrocodone/Acetaminophen [[place] 1 each PO Q6-8H PRN #20 tablet 02/19/17 Rx 7.5-325 Tablet] Methocarbamol Tab [Robaxin Tab] 750 mg PO QID PRN #20 tablet 02/19/17 Rx Atropine Sulfate [Atropine 1% Oph 1 drop BOTH EYES TID 02/20/17 02/20/17 History Soln] Furosemide Tab [Lasix Tab] 40 mg PO BID DIURETIC 02/20/17 02/20/17 History Imipramine HCl 25 mg PO DAILY 02/20/17 02/20/17 History Levothyroxine Tab [Synthroid Tab] 100 mcg PO DAILY@0700 02/20/17 02/20/17 History Potassium Chloride Liquid 20 meq PO BID 02/20/17 02/20/17 History Theophylline ER Tab 300 mg PO Q12H 02/20/17 02/20/17 History prednisoLONE AC 1% OPH SUSP [Pred 1 drop BOTH EYES QID 02/20/17 02/20/17 History Forte] traZODone [Desyrel] 100 mg PO BID 02/20/17 02/20/17 History Allergies Allergy/AdvReac Type Severity Reaction Status Date / Time No Known Allergies Allergy Verified 02/19/17 20:46 12 point system: reviewed and no additional remarkable complaints except as stated Medical,Surgical,& Family Hx - Medical History Cardio: History of: Hypertension Psychological: History of: Anxiety Disorders, Depression Neurology: History of: Vertigo HEENT: History of: Eye Problem (WEARS GLASSES, NEAR SIGHTED, CATARACT LEFT EYE) Respiratory: History of: Bronchitis, COPD, Intubation, Pulmonary Hypertension, Pneumonia Genitourinary: History of: Prostate Problems (PROSTATE CA) Gastrointestinal: History of: Gastrointestinal Bleed, Hemorrhoids Musculoskeletal: History of: Back/Neck Problems, Degenerative Disk Disease, Herniated Disk, Musculoskeletal Problems (suspected MS, fx T-) Other: History of: Miscellaneous Medical Problems (ankylosing spondylitis) - Surgical History Cardiac Surgeries: Patient Denies: Femoral-Popliteal Bypass Graft, Cardiac Catheterization, Cardiac Surgery, Carotid Endarterectomy, Internal Defibrillator, Vascular Access Devices Thoracic Surgeries: Patient denies;: Organ Transplant Neurologic Surgeries: Patient denies: Neurologic Surgery HEENT Surgeries: Surgical HX of: Tonsilectomy & Adenoidectomy Patient denies: Carotid Endarterectomy Abdominal Surgeries: Patient denies: Abdominal Surgery, Splenectomy Reproductive Surgeries: Surgical HX of;: Prostate Surgery (PROSTATECTOMY) Orthopedic Surgeries: Surgical HX of;: Orthopedic Surgery (RIGHT ANKLE FRACTURE) - Family History Family History: Reports;: Family Cancer (FATHER (TESTICULAR CA)), Family Diabetes (FATHER), Family Heart Disease (MOTHER), Family Hypertension - Social History Smoking Status: Former smoker Frequency of Alcohol Use: Frequently Type of Drug Use: Marijuana Exam - Constitutional Vitals: Period Temp Pulse Resp BP Sys/Ivey Pulse Ox Last 24 Hr 96.9 F-97.8 F 100-115 19-22 128-200/80-104 90-96 Exam: GENERAL: Patient is in no acute distress. NECK: Neck is supple. There is no JVD. No carotid bruits present. No thyroid masses. CVS: First and second heart sounds are normal. There is no S3 present. Regular rate and rhythm. RESPIRATORY: Lungs are clear to auscultation without any rales or rhonchi. ABDOMEN: Soft and non-tender. Bowel sounds are present. There is no hepatosplenomegaly. EXT: There is 1+palpable edema. Peripheral pulses are present. Skin: No rashes but has a skin discoloration distally in lower extremities. Central Nervous system: General: Alert, awake and Oriented x 3 Speech: Fluent Comprehension: Intact and normal Facial expressions: Normal Cranial Nerves: CN1/Olfactory: Normal CN II/ Optic: Normal, Visual Chávez unreliable CN III, and : SAMSON & EOMI CN V: Normal & intact CN VII: face is symmetric CNVIII: Normal CN XI/X/XI/XII: Intact and Normal Motor: Bulk and Tone is normal. Strength in the right lower extremity 2-3/5 Strength in the left lower extremity 4/5 Strength in both upper extremities is 4+-5-/5 Sensory: Decreased for all the modalities of PP, LT and temp sense in the glove and stockings to patient Reflexes: Absent and symmetrical Cerebellar function: Normal finger to nose testing. Toes: Downgoing Gait: Not tested Results - Labs CBC & BMP: 02/20/17 01:56 02/20/17 01:56 Assessment and Plan (1) Peripheral polyneuropathy Status: Acute Assessment and plan: Symptoms could very well be due to the progression of neuropathy. Needs further evaluation Recommend nerve conduction study/EMG both legs and right arm Agree with PT and OT Add gabapentin 100 mg 3 times a day Thank you for the consult Current Visit: Yes Specialty Discharge - Follow Up or Referrals
[2017-02-21] MEDS: GABAPENTIN 100 MG CAPSULE PO SCH ×2 (15:09→20:36)
[2017-02-22] MEDS: MORPHINE 2 MG/1 ML SYRINGE IV PRN (00:03)
[2017-02-22] MEDS: KETOROLAC 15 MG/1 ML VIAL IV SCH ×3 (02:12→18:06)
[2017-02-22] MEDS: METHOCARBAMOL INJ 500 MG in SODIUM CHLORIDE 0.9% 100 ML IV SCH ×3 (02:13→18:29)
--- NOTE | 2017-02-22 06:03 | Pain Management Progress Note ---
Assessment and Plan (1) Intractable back pain Status: Acute Assessment and plan: I have reviewed the CT scan lumbar spine with no acute changes and will obtain a CT scan of thoracic spine to rule out acute fracture I will also add a 12 mcg an hour Duragesic patch 02/21 continue current medications for pain 02/22 I am writing his prescription for Duragesic patch and make him follow-up on with me in pain clinic in 1 month Current Visit: Yes Pain - Subjective Interval history: Patient is doing well reports his pain is well controlled on current pain treatment regimen and is saying that he may be ready to go home soon. I will go ahead and write his prescription for Duragesic patch given to him at time of discharge Exam - Constitutional Vitals: Period Temp Pulse Resp BP Sys/Ivey Pulse Ox Last 24 Hr 96.6 F-97.5 F 100-115 18-21 128-160/75-95 90-95 General appearance: no acute distress - Head Head exam: Present: normal inspection - Eye Eye exam: Present: EOMI Pupils: Present: SAMSON - ENT ENT exam: Present: normal exam Ear exam: Present: intact Mouth exam: Present: normal external inspection - Neck Neck exam: Present: normal inspection - Respiratory Respiratory exam: Present: decreased breath sounds - Cardiovascular Cardiovascular exam: Present: RRR - GI/Abdominal GI/Abdominal exam: Present: distended - Extremities Exam Extremities exam: Present: normal inspection - Back Exam Back exam: Present: vertebral tenderness - Neurological Exam Neurological exam: Present: abnormal gait - Skin Skin exam: Present: normal color Results - Labs CBC & BMP: 02/20/17 01:56 02/20/17 01:56 Lab Results: I have reviewed the past 24 hour labs Specialty Discharge - Follow Up or Referrals
[2017-02-22] MEDS: LEVOTHYROXINE 100 MCG TABLET PO SCH (06:18)
[2017-02-22] MEDS: amLODIPine 10 MG TABLET PO SCH (08:28)
[2017-02-22] MEDS: FUROSEMIDE 20 MG TABLET PO SCH ×2 (08:28→15:46)
--- NOTE | 2017-02-22 08:28 | Hospitalist Progress Note ---
Assessment and Plan (1) Ankylosing spondylitis Status: Chronic Assessment and plan: Complicating acute fall with persistent back pain and limited mobility. Chronic degenerative changes with prior kyphoplasty prior studies do not show spinal compressive changes. He appears today to be making some progress with reduce pain and increased mobility. Current Visit: No Qualifiers: Ankylosing spondylitis location: multiple sites in spine Qualified Code(s) : M45.0 - Ankylosing spondylitis of multiple sites in spine (2) COPD (chronic obstructive pulmonary disease) Status: Chronic Assessment and plan: Left sided pleural decortication. Current Visit: No Hospitalist: Subjective Interval history: 66-year-old male ankylosing spondylitis with recurrent fall he was admitted with fall associated with acute increase in pain and reduction in mobility. His lumbar CT scan showed stable degenerative changes with no evidence of fracture he was seen by pain management and neurology and this morning he subjectively states the pain is better. He was able to stand by the bedside with physical therapy assistance yesterday and able to sit up on the edge of the bed also with assistance. Vital signs are stable overnight he is afebrile. Rhythm strip does show a brief burst of what appears to be an ectopic atrial tachycardia which is nonsustained Exam - Constitutional Vitals: Period Temp Pulse Resp BP Sys/Ivey Pulse Ox Last 24 Hr 96.6 F-97.6 F 90-115 18-21 130-160/75-92 90-96 General appearance: over weight - Respiratory Respiratory exam: Present: other (Reduce tidal volume no rales rhonchi or wheezing) - Cardiovascular Cardiovascular exam: Present: regular rate and rhythm - GI/Abdominal GI/Abdominal exam: Present: normal bowel sounds. Absent: tenderness - Extremities Exam Extremities exam: Present: other (Chronic venous stasis changes bilaterally.). Absent: edema - Neurological Exam Neurological exam: Present: alert, oriented X3 Results - Labs CBC & BMP: 02/20/17 01:56 02/20/17 01:56 Specialty Discharge - Follow Up or Referrals
[2017-02-22] MEDS: PANTOPRAZOLE 40 MG TABLET PO SCH (08:29)
[2017-02-22] MEDS: GABAPENTIN 100 MG CAPSULE PO SCH ×3 (08:30→21:18)
[2017-02-22] MEDS: miSOPROStol 200 MCG TABLET PO SCH (08:30)
[2017-02-22] MEDS: MULTIVITAMIN (CENTRUM) TABLET PO SCH (08:30)
[2017-02-22] MEDS: FOLIC ACID 1 MG TABLET PO SCH (08:30)
[2017-02-22] MEDS: traZODone 50 MG TABLET PO SCH ×2 (08:30→21:18)
[2017-02-22] MEDS: IMIPRAMINE 25 MG TABLET PO SCH (08:30)
[2017-02-22] MEDS: THIAMINE 100 MG TABLET PO SCH (08:30)
[2017-02-22] MEDS: prednisoLONE ACETATE 1% OPH SUSP 5 ML BOTTLE BOTH EYES SCH ×4 (08:31→21:00)
[2017-02-22] MEDS: DEXAMETHASONE 4 MG TABLET PO SCH ×3 (08:31→21:18)
[2017-02-22] MEDS: ATROPINE 1 % OPH SOLN 5 ML BOTTLE BOTH EYES SCH ×4 (08:32→21:00)
[2017-02-22] MEDS: POTASSIUM CHLORIDE 20 MEQ/15 ML UDCUP PO SCH ×2 (08:32→21:17)
[2017-02-22] MEDS: ENOXAPARIN 40 MG/0.4 ML SYRINGE SUBCUT SCH (08:33)
[2017-02-22] MEDS: THEOPHYLLINE ER 300 MG TABLET PO SCH ×2 (10:18→23:15)
--- NOTE | 2017-02-22 10:46 | Pulmonology Progress Note ---
Pulmonary - PN: Subj Interval history: Is a 66-year-old white male. I saw him in consultation on 02/20/2017. At that time I thought the patient was an inpatient. He needs to be an inpatient. He is sick and immobile and has a good bit of pain. He has several severe illnesses. He is requiring multiple IV medicines for treatment and control of his symptoms. Hopefully he will be a candidate for rehab down the road. My impressions were. 1. Ankylosing spondylitis. Probable spinal stenosis 2. Past history of T9 compression fracture requiring kyphoplasty October 2013 3. Acute fall resulting in severe low back pain with immobility. Look for compression fracture 4. Peripheral sensory neuropathy. Symptoms have gradually worsened 5. Chronic venous stasis of the lower extremities 6. Vitamin B12 deficiency. On replacement. 7. Past history tobacco abuse 8. COPD/asthma 8. Past history of high blood pressure 9. Hypothyroidism 10. Hyperlipidemia 11. Past history of prostate cancer. Resected without recurrence. 12. See past 02/21/2017. See my note above concerning inpatient status. This patient has multiple illnesses. He is immobile secondary to pain and his illnesses. He is requiring multiple IV medicines for control of his symptoms. He needs to be made an inpatient and hopefully he will qualify for rehab or something else that will help him recover. The present time he is on IV Robaxin, IV Toradol, IV Decadron, IV morphine and a fentanyl patch. He says some dysuria but his urinalysis shows no evidence of infection. A neurology consultation is pending. Patient has a peripheral neuropathy. He has had a history of B12 deficiency and takes shots for this. He also has had a history strongly suggestive of spinal stenosis in the past. He has underlying ankylosing spondylitis. In the distant past there was a question of multiple sclerosis. 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 This best I can tell he does not have any symptoms of multiple sclerosis. I appreciate the consult from Dr. Hoskins. 02/22/2017. Patient's back pain is a little better. I think he is going to need rehabilitation. He notes that IV Robaxin is very helpful. He is on 500 IV piggyback every 8 hours. I think when he is converted he will probably need 1500 mg p.o. every 8 hours. Decadron seems to be working well for him. Dr. Yony Thacker neurological workup is underway. I appreciate Dr. Hoskins's help. I made no changes in the patient's regimen today. Physical exam. Vital signs. See below Psychiatric. Oriented 3. Neurologic. Cranial nerves are intact. Iritis appears to be resolving. Some decreased hearing acuity bilaterally. Patient can move all 4 extremities. He complains of decreased sensation over his lower extremities. He has significant thoracic and lumbar back pain Lower extremities. Chronic venous stasis changes of the skin. Underlying edema is improved with bed rest. Neck. Symmetrical. No meningismus. Lymphatics. No submandibular cervical supraclavicular or epitrochlear adenopathy Chest. Symmetrical. Pectus excavatum. No chest wall tenderness. Breath sounds are clear Heart. No gallop Abdomen. Lax abdominal musculature. Positive bowel sounds. The remainder the physical exam is noncontributory Plan. 02/20/2017 1. Bone scan 2. Neurology consult per Govind concerning peripheral neuropathy 3. IV push Decadron 4. IV Robaxin 5. IV Toradol 6. Cytotec. 7. Watch for constipation 8. Have reviewed and reconciled his home medicines 9. See orders 02/21/2017. 1. See today's note above. 02/22/2017. 1. See today's note above. 2. This patient could benefit from rehab. Exam (Progress Note) - Constitutional Vitals: Period Temp Pulse Resp BP Sys/Ivey Pulse Ox Last 24 Hr 96.6 F-97.6 F 90-115 18-21 130-160/75-92 90-96 Results - Labs CBC & BMP: 02/20/17 01:56 02/20/17 01:56 Specialty Discharge - Follow Up or Referrals
--- NOTE | 2017-02-22 16:06 | Neurology Progress Note ---
Neurology - PN : Subjective Interval history: Patient seems to be doing about the same. No new problems reported. Nerve conduction is pending. Exam (Progress Note) - Constitutional Vitals: Period Temp Pulse Resp BP Sys/Ivey Pulse Ox Last 24 Hr 96.6 F-97.6 F 83-110 18-21 130-163/75-91 93-96 Exam: GENERAL: Patient is in no acute distress. NECK: Neck is supple. There is no JVD. No carotid bruits present. No thyroid masses. CVS: First and second heart sounds are normal. There is no S3 present. Regular rate and rhythm. RESPIRATORY: Lungs are clear to auscultation without any rales or rhonchi. ABDOMEN: Soft and non-tender. Bowel sounds are present. There is no hepatosplenomegaly. EXT: There is 1+palpable edema. Peripheral pulses are present. Skin: No rashes but has a skin discoloration distally in lower extremities. Central Nervous system: General: Alert, awake and Oriented x 3 Speech: Fluent Comprehension: Intact and normal Facial expressions: Normal Cranial Nerves: CN1/Olfactory: Normal CN II/ Optic: Normal, Visual Chávez unreliable CN III, and : SAMSON & EOMI CN V: Normal & intact CN VII: face is symmetric CNVIII: Normal CN XI/X/XI/XII: Intact and Normal Motor: Bulk and Tone is normal. Strength in the right lower extremity 2-3/5 Strength in the left lower extremity 4/5 Strength in both upper extremities is 4+-5-/5 Sensory: Decreased for all the modalities of PP, LT and temp sense in the glove and stockings to patient Reflexes: Absent and symmetrical Cerebellar function: Normal finger to nose testing. Toes: Downgoing Gait: Not tested but he did get up with marked assistance. Results - Labs CBC & BMP: 02/20/17 01:56 02/20/17 01:56 Assessment and Plan (1) Peripheral polyneuropathy Status: Acute Assessment and plan: Symptoms could very well be due to the progression of neuropathy. Awaiting nerve conduction study/EMG both legs and right arm Agree with PT and OT Continue gabapentin 3 times a day Current Visit: Yes Specialty Discharge - Follow Up or Referrals
[2017-02-23] MEDS: METHOCARBAMOL INJ 500 MG in SODIUM CHLORIDE 0.9% 100 ML IV SCH ×3 (02:14→18:19)
[2017-02-23] MEDS: KETOROLAC 15 MG/1 ML VIAL IV SCH ×3 (02:14→18:19)
--- NOTE | 2017-02-23 06:00 | Pain Management Progress Note ---
Assessment and Plan (1) Intractable back pain Status: Acute Assessment and plan: I have reviewed the CT scan lumbar spine with no acute changes and will obtain a CT scan of thoracic spine to rule out acute fracture I will also add a 12 mcg an hour Duragesic patch 02/21 continue current medications for pain 02/22 I am writing his prescription for Duragesic patch and make him follow-up on with me in pain clinic in 1 month 02/23 I agree with possible [facility] to [facility] if approved Current Visit: Yes Pain - Subjective Interval history: He reports that overall feeling better. However this morning half an hour ago when they were turning him he felt spasm in his back and numbness in the legs. I suspect this is due to his ankylosing spondylitis and chronic lumbar spondylosis issues. I would recommend just trying some to continue physical therapy at this time Exam - Constitutional Vitals: Period Temp Pulse Resp BP Sys/Ivey Pulse Ox Last 24 Hr 97.5 F-97.9 F 83-112 18-22 138-163/68-89 90-96 General appearance: mild distress - Head Head exam: Present: normal inspection - Eye Eye exam: Present: EOMI Pupils: Present: SAMSON - ENT ENT exam: Present: normal exam Ear exam: Present: intact Mouth exam: Present: normal external inspection - Neck Neck exam: Present: normal inspection - Respiratory Respiratory exam: Present: decreased breath sounds - Cardiovascular Cardiovascular exam: Present: RRR - GI/Abdominal GI/Abdominal exam: Present: distended - Extremities Exam Extremities exam: Present: normal inspection - Back Exam Back exam: Present: vertebral tenderness - Neurological Exam Neurological exam: Present: abnormal gait. Absent: altered Results - Labs CBC & BMP: 02/20/17 01:56 02/20/17 01:56 Lab Results: I have reviewed the past 24 hour labs Specialty Discharge - Follow Up or Referrals
[2017-02-23] MEDS: LEVOTHYROXINE 100 MCG TABLET PO SCH (06:03)
--- NOTE | 2017-02-23 06:27 | EKG Report ---
Stationary ECG Study 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
--- NOTE | 2017-02-23 08:40 | Hospitalist Progress Note ---
Assessment and Plan (1) Ankylosing spondylitis Status: Chronic Assessment and plan: Complicating acute fall with persistent back pain and limited mobility. Chronic degenerative changes with prior kyphoplasty; prior studies do not show spinal compressive changes. He appears today to be making some progress with reduce pain and increased mobility. Current Visit: No Qualifiers: Ankylosing spondylitis location: multiple sites in spine Qualified Code(s) : M45.0 - Ankylosing spondylitis of multiple sites in spine (2) COPD (chronic obstructive pulmonary disease) Status: Chronic Assessment and plan: Left sided pleural decortication. Prominent pectus excavatum. Episodes of paroxysmal atrial fibrillation with probable ectopic atrial tachycardia with nonconducted PACs as a potential trigger. Chronic thyroid replacement with normal thyroid profile 20 February. Current Visit: No Hospitalist: Subjective Interval history: 66-year-old male with ankylosing spondylitis with frequent falls sustained a fall with back injury. Structurally the spine appears to be stable but considerable back pain has persisted with decreased mobility. He has chronic lung disease with a previous left sided decortication but no active bronchospasm. Last evening he developed periods of atrial bigeminy with and without conduction degenerating into a brief burst of atrial fibrillation. His other vital signs remained stable he is afebrile. He continues efforts with rehabilitation however he remains limited by pain. He obviously is a poor candidate for systemic anticoagulation. We will initiate a highly selective beta-shana (bisoprolol) for suppression of atrial premature depolarizations in moderation of atrial fibrillation should recur. Exam - Constitutional Vitals: Period Temp Pulse Resp BP Sys/Ivey Pulse Ox Last 24 Hr 97.5 F-97.9 F 83-112 18-22 138-163/68-89 90-94 General appearance: over weight - Respiratory Respiratory exam: Present: clear to auscultation bilaterally. Absent: rales, rhonchi, wheezes - Cardiovascular Cardiovascular exam: Present: regular rate and rhythm - GI/Abdominal GI/Abdominal exam: Present: normal bowel sounds. Absent: tenderness - Extremities Exam Extremities exam: Absent: edema - Neurological Exam Neurological exam: Present: alert, oriented X3 Results - Labs CBC & BMP: 02/20/17 01:56 02/20/17 01:56 Specialty Discharge - Follow Up or Referrals
[2017-02-23] MEDS: BISOPROLOL 5 MG TABLET PO SCH (09:14)
[2017-02-23] MEDS: POTASSIUM CHLORIDE 20 MEQ/15 ML UDCUP PO SCH ×2 (09:14→21:25)
[2017-02-23] MEDS: THIAMINE 100 MG TABLET PO SCH (09:14)
[2017-02-23] MEDS: MULTIVITAMIN (CENTRUM) TABLET PO SCH (09:14)
[2017-02-23] MEDS: miSOPROStol 200 MCG TABLET PO SCH (09:15)
[2017-02-23] MEDS: PANTOPRAZOLE 40 MG TABLET PO SCH (09:15)
[2017-02-23] MEDS: amLODIPine 10 MG TABLET PO SCH (09:15)
[2017-02-23] MEDS: FUROSEMIDE 20 MG TABLET PO SCH ×2 (09:15→16:31)
[2017-02-23] MEDS: IMIPRAMINE 25 MG TABLET PO SCH (09:15)
[2017-02-23] MEDS: traZODone 50 MG TABLET PO SCH ×2 (09:16→21:24)
[2017-02-23] MEDS: ENOXAPARIN 40 MG/0.4 ML SYRINGE SUBCUT SCH (09:16)
[2017-02-23] MEDS: FOLIC ACID 1 MG TABLET PO SCH (09:16)
[2017-02-23] MEDS: GABAPENTIN 100 MG CAPSULE PO SCH ×3 (09:16→21:25)
[2017-02-23] MEDS: DEXAMETHASONE 4 MG TABLET PO SCH ×3 (09:16→21:25)
[2017-02-23] MEDS: ATROPINE 1 % OPH SOLN 5 ML BOTTLE BOTH EYES SCH ×3 (09:30→21:26)
[2017-02-23] MEDS: DESITIN 4OZ/NYSTATIN 15 GRAM MIXTURE PASTE TOP SCH ×2 (09:31→21:26)
[2017-02-23] MEDS: prednisoLONE ACETATE 1% OPH SUSP 5 ML BOTTLE BOTH EYES SCH ×4 (09:31→21:26)
--- NOTE | 2017-02-23 10:05 | Pulmonology Progress Note ---
Pulmonary - PN: Subj Interval history: Is a 66-year-old white male. I saw him in consultation on 02/20/2017. At that time I thought the patient was an inpatient. He needs to be an inpatient. He is sick and immobile and has a good bit of pain. He has several severe illnesses. He is requiring multiple IV medicines for treatment and control of his symptoms. Hopefully he will be a candidate for rehab down the road. My impressions were. 1. Ankylosing spondylitis. Probable spinal stenosis 2. Past history of T9 compression fracture requiring kyphoplasty October 2013 3. Acute fall resulting in severe low back pain with immobility. Look for compression fracture 4. Peripheral sensory neuropathy. Symptoms have gradually worsened 5. Chronic venous stasis of the lower extremities 6. Vitamin B12 deficiency. On replacement. 7. Past history tobacco abuse 8. COPD/asthma 8. Past history of high blood pressure 9. Hypothyroidism 10. Hyperlipidemia 11. Past history of prostate cancer. Resected without recurrence. 12. See past 02/21/2017. See my note above concerning inpatient status. This patient has multiple illnesses. He is immobile secondary to pain and his illnesses. He is requiring multiple IV medicines for control of his symptoms. He needs to be made an inpatient and hopefully he will qualify for rehab or something else that will help him recover. The present time he is on IV Robaxin, IV Toradol, IV Decadron, IV morphine and a fentanyl patch. He says some dysuria but his urinalysis shows no evidence of infection. A neurology consultation is pending. Patient has a peripheral neuropathy. He has had a history of B12 deficiency and takes shots for this. He also has had a history strongly suggestive of spinal stenosis in the past. He has underlying ankylosing spondylitis. In the distant past there was a question of multiple sclerosis. This did not shoe turner to be the case. This best I can tell he does not have any symptoms of multiple sclerosis. I appreciate the consult from Dr. Hoskins. 02/22/2017. Patient's back pain is a little better. I think he is going to need rehabilitation. He notes that IV Robaxin is very helpful. He is on 500 IV piggyback every 8 hours. I think when he is converted he will probably need 1500 mg p.o. every 8 hours. Decadron seems to be working well for him. Dr. Yony Thacker neurological workup is underway. I appreciate Dr. Hoskins's help. I made no changes in the patient's regimen today. 02/24/2016. This patient continues to have severe back pain. This is almost impossible turning because of the pain. This tends a localized in the thoracolumbar area and the patient says he feels it on both sides he says it "radiates to my kidney area and to my sacroiliac area" bilateral. At the present time this patient is not able to take care of himself. I wonder if Dr. Hoskins could inject him and help with the severity of his symptoms. Dr. Yony Thacker workup of the patient's peripheral neuropathy is underway but the patient has not been able to undergo some of the test because of severe back pain. Physical exam. Vital signs. See below Psychiatric. Oriented 3. Neurologic. Cranial nerves are intact. Iritis appears to be resolving. Some decreased hearing acuity bilaterally. Patient can move all 4 extremities. He complains of decreased sensation over his lower extremities. He has significant thoracic and lumbar back pain Lower extremities. Chronic venous stasis changes of the skin. Underlying edema is improved with bed rest. Neck. Symmetrical. No meningismus. Lymphatics. No submandibular cervical supraclavicular or epitrochlear adenopathy Chest. Symmetrical. Pectus excavatum. No chest wall tenderness. Breath sounds are clear Heart. No gallop Abdomen. Lax abdominal musculature. Positive bowel sounds. The remainder the physical exam is noncontributory Plan. 02/20/2017 1. Bone scan 2. Neurology consult per Govind concerning peripheral neuropathy 3. IV push Decadron 4. IV Robaxin 5. IV Toradol 6. Cytotec. 7. Watch for constipation 8. Have reviewed and reconciled his home medicines 9. See orders 02/21/2017. 1. See today's note above. 02/22/2017. 1. See today's note above. 2. This patient could benefit from rehab. 02/23/2017. 1. See today's note above 2. Immobilized secondary to severe back Exam (Progress Note) - Constitutional Vitals: Period Temp Pulse Resp BP Sys/Ivey Pulse Ox Last 24 Hr 97.5 F-97.9 F 83-112 18-22 138-163/68-89 90-94 Results - Labs CBC & BMP: 02/20/17 01:56 02/20/17 01:56 Specialty Discharge - Follow Up or Referrals
[2017-02-23] MEDS: fentaNYL 12 MCG/HR PATCH TRANSDERM SCH (10:22)
[2017-02-23] MEDS: THEOPHYLLINE ER 300 MG TABLET PO SCH ×2 (10:23→23:40)
--- NOTE | 2017-02-23 15:56 | Neurology Progress Note ---
Neurology - PN : Subjective Interval history: Patient seems to be doing okay. No new problems reported. Pain is under better control. Nerve conduction study/EMG revealed diffuse sensory motor axonal neuropathy Exam (Progress Note) - Constitutional Vitals: Period Temp Pulse Resp BP Sys/Ivey Pulse Ox Last 24 Hr 97.5 F-97.9 F 74-112 18-22 138-160/68-99 90-94 Exam: GENERAL: Patient is in no acute distress. NECK: Neck is supple. There is no JVD. No carotid bruits present. No thyroid masses. CVS: First and second heart sounds are normal. There is no S3 present. Regular rate and rhythm. RESPIRATORY: Lungs are clear to auscultation without any rales or rhonchi. ABDOMEN: Soft and non-tender. Bowel sounds are present. There is no hepatosplenomegaly. EXT: There is 1+palpable edema. Peripheral pulses are present. Skin: No rashes but has a skin discoloration distally in lower extremities. Central Nervous system: General: Alert, awake and Oriented x 3 Speech: Fluent Comprehension: Intact and normal Facial expressions: Normal Cranial Nerves: CN1/Olfactory: Normal CN II/ Optic: Normal, Visual Chávez unreliable CN III, and : SAMSON & EOMI CN V: Normal & intact CN VII: face is symmetric CNVIII: Normal CN XI/X/XI/XII: Intact and Normal Motor: Bulk and Tone is normal. Strength in the right lower extremity 2-3/5 Strength in the left lower extremity 4/5 Strength in both upper extremities is 4+-5-/5 Sensory: Decreased for all the modalities of PP, LT and temp sense in the glove and stockings to patient Reflexes: Absent and symmetrical Cerebellar function: Normal finger to nose testing. Toes: Downgoing Gait: Not tested but he did get up with marked assistance. Results - Labs CBC & BMP: 02/20/17 01:56 02/20/17 01:56 Assessment and Plan (1) Peripheral polyneuropathy Status: Acute Assessment and plan: Continue Neurontin at the same dose No further intervention needed from neuro standpoint Current Visit: Yes Specialty Discharge - Follow Up or Referrals
[2017-02-24] MEDS: KETOROLAC 15 MG/1 ML VIAL IV SCH ×3 (02:34→18:23)
[2017-02-24] MEDS: METHOCARBAMOL INJ 500 MG in SODIUM CHLORIDE 0.9% 100 ML IV SCH (02:34)
--- NOTE | 2017-02-24 06:29 | Pain Management Progress Note ---
Assessment and Plan (1) Intractable back pain Status: Acute Assessment and plan: I have reviewed the CT scan lumbar spine with no acute changes and will obtain a CT scan of thoracic spine to rule out acute fracture I will also add a 12 mcg an hour Duragesic patch 02/21 continue current medications for pain 02/22 I am writing his prescription for Duragesic patch and make him follow-up on with me in pain clinic in 1 month 02/23 I agree with possible transfer to [facility] rehab if approved 02/24 continue current plan of care for now as far as pain management is concerned Current Visit: Yes Pain - Subjective Interval history: She is complaining of back hip and leg pain which is aggravated when he is moved in the bed and generalized stiffness is still an issue and Robaxin IV seems to be helping. Patient is possibly awaiting placement at time in the rehab unit today Exam - Constitutional Vitals: Period Temp Pulse Resp BP Sys/Ivey Pulse Ox Last 24 Hr 97.2 F-98.2 F 74-96 18-20 139-160/70-99 90-93 General appearance: mild distress - Head Head exam: Present: normal inspection - Eye Eye exam: Present: EOMI Pupils: Present: SAMSON - ENT ENT exam: Present: normal exam Ear exam: Present: intact Mouth exam: Present: normal external inspection - Neck Neck exam: Present: normal inspection - Respiratory Respiratory exam: Present: clear to auscultation bilaterally - Cardiovascular Cardiovascular exam: Present: RRR - GI/Abdominal GI/Abdominal exam: Present: distended - Back Exam Back exam: Present: vertebral tenderness - Neurological Exam Neurological exam: Present: abnormal gait - Skin Skin exam: Present: normal color Results - Labs CBC & BMP: 02/20/17 01:56 02/20/17 01:56 Lab Results: I have reviewed the past 24 hour labs Specialty Discharge - Follow Up or Referrals Follow up with: Ciera Hoskins MD [Physician] - 03/24/17 8:30 am (PLEASE BRING ALL CURRENT MEDICATIONS AND INSURANCE CARDS TO THIS APPOINMENT. [phone])
[2017-02-24] MEDS: PANTOPRAZOLE 40 MG TABLET PO SCH (09:32)
[2017-02-24] MEDS: FOLIC ACID 1 MG TABLET PO SCH (09:32)
[2017-02-24] MEDS: THIAMINE 100 MG TABLET PO SCH (09:32)
[2017-02-24] MEDS: traZODone 50 MG TABLET PO SCH ×2 (09:33→22:26)
[2017-02-24] MEDS: GABAPENTIN 100 MG CAPSULE PO SCH ×3 (09:34→22:27)
[2017-02-24] MEDS: LEVOTHYROXINE 100 MCG TABLET PO SCH (09:34)
[2017-02-24] MEDS: MULTIVITAMIN (CENTRUM) TABLET PO SCH (09:35)
[2017-02-24] MEDS: amLODIPine 10 MG TABLET PO SCH (09:35)
[2017-02-24] MEDS: IMIPRAMINE 25 MG TABLET PO SCH (09:35)
[2017-02-24] MEDS: miSOPROStol 200 MCG TABLET PO SCH (09:35)
[2017-02-24] MEDS: BISOPROLOL 5 MG TABLET PO SCH (09:39)
[2017-02-24] MEDS: DEXAMETHASONE 4 MG TABLET PO SCH ×3 (09:39→22:27)
[2017-02-24] MEDS: POTASSIUM CHLORIDE 20 MEQ/15 ML UDCUP PO SCH ×2 (09:39→22:27)
[2017-02-24] MEDS: DESITIN 4OZ/NYSTATIN 15 GRAM MIXTURE PASTE TOP SCH ×2 (09:39→22:27)
[2017-02-24] MEDS: FUROSEMIDE 20 MG TABLET PO SCH ×2 (09:40→16:41)
[2017-02-24] MEDS: ATROPINE 1 % OPH SOLN 5 ML BOTTLE BOTH EYES SCH ×3 (09:41→20:22)
[2017-02-24] MEDS: prednisoLONE ACETATE 1% OPH SUSP 5 ML BOTTLE BOTH EYES SCH ×4 (09:41→20:22)
[2017-02-24] MEDS: ENOXAPARIN 40 MG/0.4 ML SYRINGE SUBCUT SCH (09:41)
[2017-02-24] MEDS: LIDOCAINE 5% PATCH TRANSDERM SCH (10:31)
[2017-02-24] MEDS: THEOPHYLLINE ER 300 MG TABLET PO SCH ×2 (10:35→22:26)
--- NOTE | 2017-02-24 11:04 | Pulmonology Progress Note ---
Pulmonary - PN: Subj Interval history: Is a 66-year-old white male. I saw him in consultation on 02/20/2017. At that time I thought the patient was an inpatient. He needs to be an inpatient. He is sick and immobile and has a good bit of pain. He has several severe illnesses. He is requiring multiple IV medicines for treatment and control of his symptoms. Hopefully he will be a candidate for rehab down the road. My impressions were. 1. Ankylosing spondylitis. Probable spinal stenosis 2. Past history of T9 compression fracture requiring kyphoplasty October 2013 3. Acute fall resulting in severe low back pain with immobility. Look for compression fracture 4. Peripheral sensory neuropathy. Symptoms have gradually worsened 5. Chronic venous stasis of the lower extremities 6. Vitamin B12 deficiency. On replacement. 7. Past history tobacco abuse 8. COPD/asthma 8. Past history of high blood pressure 9. Hypothyroidism 10. Hyperlipidemia 11. Past history of prostate cancer. Resected without recurrence. 12. See past 02/21/2017. See my note above concerning inpatient status. This patient has multiple illnesses. He is immobile secondary to pain and his illnesses. He is requiring multiple IV medicines for control of his symptoms. He needs to be made an inpatient and hopefully he will qualify for rehab or something else that will help him recover. The present time he is on IV Robaxin, IV Toradol, IV Decadron, IV morphine and a fentanyl patch. He says some dysuria but his urinalysis shows no evidence of infection. A neurology consultation is pending. Patient has a peripheral neuropathy. He has had a history of B12 deficiency and takes shots for this. He also has had a history strongly suggestive of spinal stenosis in the past. He has underlying ankylosing spondylitis. In the distant past there was a question of multiple sclerosis. This did not lathe turner to be the case. This best I can tell he does not have any symptoms of multiple sclerosis. I appreciate the consult from Dr. Hoskins. 02/22/2017. Patient's back pain is a little better. I think he is going to need rehabilitation. He notes that IV Robaxin is very helpful. He is on 500 IV piggyback every 8 hours. I think when he is converted he will probably need 1500 mg p.o. every 8 hours. Decadron seems to be working well for him. Dr. Yony Thacker neurological workup is underway. I appreciate Dr. Hoskins's help. I made no changes in the patient's regimen today. 02/24/2016. This patient continues to have severe back pain. This is almost impossible turning because of the pain. This tends a localized in the thoracolumbar area and the patient says he feels it on both sides he says it "radiates to my kidney area and to my sacroiliac area" bilateral. At the present time this patient is not able to take care of himself. I wonder if Dr. Hoskins could inject him and help with the severity of his symptoms. Dr. Yony Thacker workup of the patient's peripheral neuropathy is underway but the patient has not been able to undergo some of the test because of severe back pain. 02/24/2017. This patient is immobilized by back pain. Is not much I can do. I have increased his Robaxin-750 IV piggyback every 8 hours. He is asked for restarting of his Tranxene and I have ordered this was 7.5 3 times daily. We have also placed a lidocaine patch over his back. Patient's on IV Toradol and IV Decadron. He has underlying ankylosing spondylitis. I wonder if he will require injections in order to control his pain enough that we can get him up. Dr. Beatty is evaluated his lower extremity pain and has noted that this is a sensory neuropathy.. Physical exam. Vital signs. See below Psychiatric. Oriented 3. Neurologic. Cranial nerves are intact. Iritis appears to be resolving. Some decreased hearing acuity bilaterally. Patient can move all 4 extremities. He complains of decreased sensation over his lower extremities. He has significant thoracic and lumbar back pain Lower extremities. Chronic venous stasis changes of the skin. Underlying edema is improved with bed rest. Neck. Symmetrical. No meningismus. Lymphatics. No submandibular cervical supraclavicular or epitrochlear adenopathy Chest. Symmetrical. Pectus excavatum. No chest wall tenderness. Breath sounds are clear Heart. No gallop Abdomen. Lax abdominal musculature. Positive bowel sounds. The remainder the physical exam is noncontributory Plan. 02/20/2017 1. Bone scan 2. Neurology consult per Govind concerning peripheral neuropathy 3. IV push Decadron 4. IV Robaxin 5. IV Toradol 6. Cytotec. 7. Watch for constipation 8. Have reviewed and reconciled his home medicines 9. See orders 02/21/2017. 1. See today's note above. 02/22/2017. 1. See today's note above. 2. This patient could benefit from rehab. 02/23/2017. 1. See today's note above 2. Immobilized secondary to severe back 02/24/2017. 1. See today's note above. 2. This patient is completely immobilized secondary to severe back pain. He cannot even turn over in bed. Exam (Progress Note) - Constitutional Vitals: Period Temp Pulse Resp BP Sys/Ivey Pulse Ox Last 24 Hr 97.2 F-98.2 F 72-96 18-20 139-160/70-99 90-94 Results - Labs CBC & BMP: 02/20/17 01:56 02/20/17 01:56 Specialty Discharge - Follow Up or Referrals Follow up with: Ciera Hoskins MD [Physician] - 03/24/17 8:30 am (PLEASE BRING ALL CURRENT MEDICATIONS AND INSURANCE CARDS TO THIS APPOINMENT. [phone])
[2017-02-24] MEDS: METHOCARBAMOL INJ 750 MG in SODIUM CHLORIDE 0.9% 100 ML IV SCH ×2 (11:46→18:20)
[2017-02-24] MEDS: CLORAZEPATE 7.5 MG TABLET PO SCH ×2 (16:41→22:27)
--- NOTE | 2017-02-24 17:25 | Hospitalist Progress Note ---
Assessment and Plan (1) Ankylosing spondylitis Status: Chronic Current Visit: No (2) Intractable back pain Status: Acute Current Visit: Yes Hospitalist: Subjective Interval history: No acute events overnight. Patient still reports severe back pain, unable to sit up or move very much. Medication changes made by pain medicine and pulmonary today. Exam - Constitutional Vitals: Period Temp Pulse Resp BP Sys/Ivey Pulse Ox Last 24 Hr 97.4 F-98.2 F 72-93 18-20 143-160/76-94 92-94 General appearance: over weight - Head Head exam: Present: normocephalic, atraumatic - Eye Eye exam: Present: EOMI Pupils: Present: SAMSON - ENT ENT exam: Present: normal exam - Neck Neck exam: Present: normal inspection - Respiratory Respiratory exam: Present: clear to auscultation bilaterally. Absent: wheezes - Cardiovascular Cardiovascular exam: Present: regular rate and rhythm - GI/Abdominal GI/Abdominal exam: Present: normal bowel sounds, soft. Absent: tenderness, rebound - Extremities Exam Extremities exam: Present: normal inspection - Back Exam Back exam: Present: normal inspection - Neurological Exam Neurological exam: Present: alert, oriented X3 - Psychiatric Psychiatric exam: Present: normal affect, normal mood - Skin Skin exam: Present: warm, intact Results - Labs CBC & BMP: 02/20/17 01:56 02/20/17 01:56 Specialty Discharge - Follow Up or Referrals Follow up with: Ciera Hoskins MD [Physician] - 03/24/17 8:30 am (PLEASE BRING ALL CURRENT MEDICATIONS AND INSURANCE CARDS TO THIS APPOINMENT. [phone])
[2017-02-25] MEDS: KETOROLAC 15 MG/1 ML VIAL IV SCH (02:08)
[2017-02-25] MEDS: METHOCARBAMOL INJ 750 MG in SODIUM CHLORIDE 0.9% 100 ML IV SCH ×3 (02:09→18:30)
[2017-02-25] MEDS: LEVOTHYROXINE 100 MCG TABLET PO SCH (06:02)
[2017-02-25] MEDS: miSOPROStol 200 MCG TABLET PO SCH (09:19)
[2017-02-25] MEDS: POTASSIUM CHLORIDE 20 MEQ/15 ML UDCUP PO SCH ×2 (09:19→20:31)
[2017-02-25] MEDS: amLODIPine 10 MG TABLET PO SCH (09:19)
[2017-02-25] MEDS: CLORAZEPATE 7.5 MG TABLET PO SCH ×3 (09:19→20:32)
[2017-02-25] MEDS: THIAMINE 100 MG TABLET PO SCH (09:19)
[2017-02-25] MEDS: FUROSEMIDE 20 MG TABLET PO SCH ×2 (09:20→15:19)
[2017-02-25] MEDS: MULTIVITAMIN (CENTRUM) TABLET PO SCH (09:20)
[2017-02-25] MEDS: IMIPRAMINE 25 MG TABLET PO SCH (09:20)
[2017-02-25] MEDS: DEXAMETHASONE 4 MG TABLET PO SCH ×3 (09:20→20:31)
[2017-02-25] MEDS: BISOPROLOL 5 MG TABLET PO SCH (09:20)
[2017-02-25] MEDS: GABAPENTIN 100 MG CAPSULE PO SCH ×3 (09:20→20:31)
[2017-02-25] MEDS: ENOXAPARIN 40 MG/0.4 ML SYRINGE SUBCUT SCH (09:21)
[2017-02-25] MEDS: FOLIC ACID 1 MG TABLET PO SCH (09:21)
[2017-02-25] MEDS: traZODone 50 MG TABLET PO SCH ×2 (09:21→20:31)
[2017-02-25] MEDS: DESITIN 4OZ/NYSTATIN 15 GRAM MIXTURE PASTE TOP SCH ×2 (09:21→20:32)
[2017-02-25] MEDS: PANTOPRAZOLE 40 MG TABLET PO SCH (09:21)
[2017-02-25] MEDS: LIDOCAINE 5% PATCH TRANSDERM SCH (09:23)
[2017-02-25] MEDS: ATROPINE 1 % OPH SOLN 5 ML BOTTLE BOTH EYES SCH ×3 (09:27→20:30)
[2017-02-25] MEDS: prednisoLONE ACETATE 1% OPH SUSP 5 ML BOTTLE BOTH EYES SCH ×4 (09:27→20:30)
--- NOTE | 2017-02-25 09:48 | Pulmonology Progress Note ---
Pulmonary - PN: Subj Interval history: This 66-year-old man has ankylosing spondylitis and a good bit of back pain. It has improved with change of therapy. Plans are for him to go to [facility] or rehab. His COPD is stable. Exam (Progress Note) - Constitutional Vitals: Period Temp Pulse Resp BP Sys/Ivey Pulse Ox Last 24 Hr 96.9 F-98.3 F 69-105 18-87 120-155/71-81 91-95 Exam: Patient is alert oriented vital signs normal. Pupils react to light. He has a very long white smith. Chest sounds clear. He has prolonged expiratory phase. Heart normal rate and rhythm no murmurs. Abdomen soft nontender no masses. Extremities no clubbing cyanosis or edema. He does have some chronic trophic changes in his lower extremities. Looks like postphlebitic type changes. Results - Labs CBC & BMP: 02/20/17 01:56 02/20/17 01:56 Lab Results: I have reviewed the past 24 hour labs Assessment and Plan (1) Generalized weakness Status: Chronic Current Visit: Yes (2) Ankylosing spondylitis Status: Chronic Assessment and plan: Being managed by Dr. Hoksins for pain management. Current Visit: No (3) Chronic venous stasis dermatitis Status: Acute Assessment and plan: Calves are nontender. He has some discoloration of the lower extremities. Current Visit: No (4) Chronic back pain Status: Chronic Assessment and plan: Better with current management. Current Visit: No Qualifiers: Back pain location: low back pain (5) COPD (chronic obstructive pulmonary disease) Status: Chronic Assessment and plan: No acute exacerbation. Current Visit: No Specialty Discharge - Follow Up or Referrals Follow up with: Ciera Hoskins MD [Physician] - 03/24/17 8:30 am (PLEASE BRING ALL CURRENT MEDICATIONS AND INSURANCE CARDS TO THIS APPOINMENT. [phone])
[2017-02-25] MEDS: THEOPHYLLINE ER 300 MG TABLET PO SCH ×2 (11:05→22:07)
--- NOTE | 2017-02-25 11:46 | Cardiology Consult Note ---
Assessment and Plan (1) High-grade atrioventricular block Status: Acute Assessment and plan: The patient has episodic AV dissociation with what looks to be third-degree AV block with a narrow escape. He does have occasional pauses. I think the best approach is going to be to decrease his abated somewhat and evaluate him for likely dual-chamber pacemaker placement. On ascertain what the amount of heart block is we will check a Holter monitor and probably get a 12-lead EKG Current Visit: Yes (2) Intractable back pain Status: Acute Current Visit: Yes (3) Ankylosing spondylitis Status: Chronic Current Visit: No (4) COPD (chronic obstructive pulmonary disease) Status: Chronic Current Visit: No History of Present Illness - Data of Consult Patient: new to practice - Consult Narrative Reason for consult: Episodes of bradycardia with pauses and heart block History of present illness: Mr. Fischer is a 66 year old male who has a history of COPD. He has a history of ankylosing spondylitis with complete fusion of his cervical and thoracic and lumbar spine making it nearly impossible for him to lie flat. He has a lot of severe pain related to that. He has problems with his breathing related to his ankylosing spondylitis in addition he apparently has some bronchospastic disease as well. He has been treated for this for some time. He was noted to have episodes of bradycardia with AV dissociation and evidence of heart block. He has a narrow escape rhythm and has had up to 3.6 second pause at bedtime. He is on Zebeta and we will adjust that. We have to consider pacing although this can be logistically very difficult because the patient is not able to lie flat. CC: Eusebio Hamilton MD - Home Medications and Allergies Home Medications: Home Medications Medication Instructions Recorded Confirmed Type Hydrocodone/Acetaminophen [Gilead 1 each PO Q6-8H PRN #20 tablet 02/19/17 Rx 7.5-325 Tablet] Methocarbamol Tab [Robaxin Tab] 750 mg PO QID PRN #20 tablet 02/19/17 Rx Atropine Sulfate [Atropine 1% Oph 1 drop BOTH EYES TID 02/20/17 02/20/17 History Soln] Furosemide Tab [Lasix Tab] 40 mg PO BID DIURETIC 02/20/17 02/20/17 History Imipramine HCl 25 mg PO DAILY 02/20/17 02/20/17 History Levothyroxine Tab [Synthroid Tab] 100 mcg PO DAILY@0700 06/05/17 06/05/17 History Potassium Chloride Liquid 20 meq PO BID 02/20/17 02/20/17 History Theophylline ER Tab 300 mg PO Q12H 02/20/17 02/20/17 History prednisoLONE AC 1% OPH SUSP [Pred 1 drop BOTH EYES QID 02/20/17 02/20/17 History Forte] traZODone [Desyrel] 100 mg PO BID 02/20/17 02/20/17 History Allergies/Adverse Reactions: Allergies Allergy/AdvReac Type Severity Reaction Status Date / Time No Known Allergies Allergy Verified 02/19/17 20:46 Medical,Surgical,& Family Hx - Medical History Cardio: History of: Hypertension Psychological: History of: Anxiety Disorders, Depression Neurology: History of: Vertigo HEENT: History of: Eye Problem (WEARS GLASSES, NEAR SIGHTED, CATARACT LEFT EYE) Respiratory: History of: Bronchitis, COPD, Intubation, Pulmonary Hypertension, Pneumonia Genitourinary: History of: Prostate Problems (PROSTATE CA) Gastrointestinal: History of: Gastrointestinal Bleed, Hemorrhoids Musculoskeletal: History of: Back/Neck Problems, Degenerative Disk Disease, Herniated Disk, Musculoskeletal Problems (suspected MS, fx T-) Other: History of: Miscellaneous Medical Problems (ankylosing spondylitis) - Surgical History Cardiac Surgeries: Patient Denies: Femoral-Popliteal Bypass Graft, Cardiac Catheterization, Cardiac Surgery, Carotid Endarterectomy, Internal Defibrillator, Vascular Access Devices Thoracic Surgeries: Patient denies;: Organ Transplant Neurologic Surgeries: Patient denies: Neurologic Surgery HEENT Surgeries: Surgical HX of: Tonsilectomy & Adenoidectomy Patient denies: Carotid Endarterectomy Abdominal Surgeries: Patient denies: Abdominal Surgery, Splenectomy Reproductive Surgeries: Surgical HX of;: Prostate Surgery (PROSTATECTOMY) Orthopedic Surgeries: Surgical HX of;: Orthopedic Surgery (RIGHT ANKLE FRACTURE) - Family History Family History: Reports;: Family Cancer (FATHER (TESTICULAR CA)), Family Diabetes (FATHER), Family Heart Disease (MOTHER), Family Hypertension - Social History Smoking Status: Former smoker Frequency of Alcohol Use: Frequently Type of Drug Use: Marijuana Physical Examination Vital Signs Temp Pulse Resp BP Pulse Ox 98.2 F 108 H 18 100/56 96 02/19/17 20:39 02/19/17 20:39 02/19/17 20:39 02/19/17 20:39 02/19/17 20:39 Other: Physical examination: General: The patient is awake and alert and oriented -3. Mood and affect are normal. HEENT: Normocephalic, sclera are clear there are no lid xanthelasmas noted. Oral mucosa is free of cyanosis or pallor. Neck: The neck is rigid and fixed without JVD. Carotid upstrokes are normal volume and amplitude. There is no audible bruit. There is no palpable thyroid. Trachea is midline. Chest: Lungs: The patient is comfortable at rest without intercostal retractions or abdominal breathing. There are no adventitial sounds rales rubs rhonchi or wheezes noted. Cardiovascular: The PMI is nondisplaced. No palpable thrill S3 or S4. There is a regular rate and rhythm with no murmur rub or gallop noted. Dorsalis pedis posterior tibial and femoral pulses are 2+ and equal bilaterally. Abdomen: Abdomen is soft and nontender with normal active bowel sounds. There is no palpable mass or organomegaly noted. There is no midline bruit. Extremities exam: There is no cyanosis clubbing or edema. Skin: Skin is warm and dry without ecchymosis or urticaria or skin rash. There are no palpable nodules. Musculoskeletal: There is severe angulation of the cervical spine with fused thoracic spine as well. Result/EKG - Labs CBC & BMP: 02/20/17 01:56 02/20/17 01:56 Specialty Discharge - Follow Up or Referrals Follow up with: Ciera Hoskins MD [Physician] - 03/24/17 8:30 am (PLEASE BRING ALL CURRENT MEDICATIONS AND INSURANCE CARDS TO THIS APPOINMENT. [phone])
--- NOTE | 2017-02-25 16:26 | Hospitalist Progress Note ---
Assessment and Plan (1) Ankylosing spondylitis Status: Chronic Current Visit: No (2) Intractable back pain Status: Acute Assessment and plan: Pain management assisting Current Visit: Yes Hospitalist: Subjective Interval history: No acute events overnight. This morning with episodes of bradycardia with pauses. Patient denies symptoms associated with these episodes. Still with back pain, reports same as yesterday, worsened by any type of movement. Exam - Constitutional Vitals: Period Temp Pulse Resp BP Sys/Ivey Pulse Ox Last 24 Hr 96.9 F-98.3 F 65-105 18-87 120-155/65-81 91-98 General appearance: over weight - Head Head exam: Present: normocephalic, atraumatic - Eye Eye exam: Present: EOMI Pupils: Present: SAMSON - ENT ENT exam: Present: normal exam - Neck Neck exam: Present: normal inspection - Respiratory Respiratory exam: Present: clear to auscultation bilaterally. Absent: rhonchi, wheezes - Cardiovascular Cardiovascular exam: Present: regular rate and rhythm - GI/Abdominal GI/Abdominal exam: Present: normal bowel sounds, soft. Absent: tenderness, rebound - Extremities Exam Extremities exam: Present: normal inspection - Back Exam Back exam: Present: normal inspection - Neurological Exam Neurological exam: Present: alert, oriented X3 - Psychiatric Psychiatric exam: Present: normal affect, normal mood - Skin Skin exam: Present: warm, intact Results - Labs CBC & BMP: 02/20/17 01:56 02/20/17 01:56 Specialty Discharge - Follow Up or Referrals Follow up with: Ciera Hoskins MD [Physician] - 03/24/17 8:30 am (PLEASE BRING ALL CURRENT MEDICATIONS AND INSURANCE CARDS TO THIS APPOINMENT. [phone])
[2017-02-26] MEDS: METHOCARBAMOL INJ 750 MG in SODIUM CHLORIDE 0.9% 100 ML IV SCH ×3 (03:05→18:47)
[2017-02-26] MEDS: LEVOTHYROXINE 100 MCG TABLET PO SCH (06:04)
[2017-02-26 06:10] LABS: Basophils % 0.2 % (0.0-0.8); Hematocrit 40.9 VOL% (42.0-52.0); Hemoglobin 14.7 GM/DL (14.0-18.0); Immature Granulocytes % 1.8 %; Immature Granulocytes Absolute 0.23 #; Lymphocytes # 0.3 10*3/uL (1.4-4.0); Lymphocytes % 2.2 % (21.2-54.2); Mean Corpuscular HGB Conc 35.9 GM/DL (32-36); Mean Corpuscular Hemoglobin 34 PG (27-34); Mean Corpuscular Volume 95.1 FL (87-102); Mean Platelet Volume 11.1 FL (9.6-12.0); Monocytes # 0.7 10*3/uL (0.11-0.8); Monocytes % 5.7 % (1.7-12.7); Neutrophils # 11.7 10*3/uL (1.4-7.4); Neutrophils % 90.1 % (38.7-73.9); Platelet Count 225 T/CUMM (130-400); Red Cell Distribution Width 12.2 % (9.3-17.3); White Blood Count 12.9 T/CUMM (4-12)
[2017-02-26 06:39] LABS: Calcium 8.5 MG/DL (8.5-10.1); Magnesium 2.5 MG/DL (1.8-2.4); Osmolality,Calculated 276.8 MOS/KG (273-304); Potassium 4.1 MMOL/L (3.5-5.1)
[2017-02-26 07:33] LABS: Hypochromasia Slight
[2017-02-26] MEDS: PANTOPRAZOLE 40 MG TABLET PO SCH (09:42)
[2017-02-26] MEDS: amLODIPine 10 MG TABLET PO SCH (09:42)
[2017-02-26] MEDS: CLORAZEPATE 7.5 MG TABLET PO SCH ×3 (09:42→21:22)
[2017-02-26] MEDS: MULTIVITAMIN (CENTRUM) TABLET PO SCH (09:43)
[2017-02-26] MEDS: BISOPROLOL 5 MG TABLET PO SCH (09:43)
[2017-02-26] MEDS: FOLIC ACID 1 MG TABLET PO SCH (09:43)
[2017-02-26] MEDS: miSOPROStol 200 MCG TABLET PO SCH (09:43)
[2017-02-26] MEDS: THIAMINE 100 MG TABLET PO SCH (09:43)
[2017-02-26] MEDS: traZODone 50 MG TABLET PO SCH ×2 (09:43→21:21)
[2017-02-26] MEDS: FUROSEMIDE 20 MG TABLET PO SCH ×2 (09:43→15:46)
[2017-02-26] MEDS: ENOXAPARIN 40 MG/0.4 ML SYRINGE SUBCUT SCH (09:44)
[2017-02-26] MEDS: GABAPENTIN 100 MG CAPSULE PO SCH ×3 (09:44→21:22)
[2017-02-26] MEDS: POTASSIUM CHLORIDE 20 MEQ/15 ML UDCUP PO SCH ×2 (09:44→21:21)
[2017-02-26] MEDS: DEXAMETHASONE 4 MG TABLET PO SCH ×3 (09:44→21:21)
[2017-02-26] MEDS: DESITIN 4OZ/NYSTATIN 15 GRAM MIXTURE PASTE TOP SCH ×2 (09:44→21:22)
[2017-02-26] MEDS: IMIPRAMINE 25 MG TABLET PO SCH (09:44)
[2017-02-26] MEDS: LIDOCAINE 5% PATCH TRANSDERM SCH (09:45)
[2017-02-26] MEDS: prednisoLONE ACETATE 1% OPH SUSP 5 ML BOTTLE BOTH EYES SCH ×4 (09:54→21:25)
[2017-02-26] MEDS: ATROPINE 1 % OPH SOLN 5 ML BOTTLE BOTH EYES SCH ×3 (09:54→21:25)
--- NOTE | 2017-02-26 10:25 | Cardiology Progress Note ---
Assessment and Plan (1) High-grade atrioventricular block Status: Acute Assessment and plan: The patient has episodic AV dissociation with what looks to be third-degree AV block with a narrow escape. He does have occasional pauses. I think the best approach is going to be to decrease his abated somewhat and evaluate him for likely dual-chamber pacemaker placement. On ascertain what the amount of heart block is we will check a Holter monitor and probably get a 12-lead EKG 02/26: He may actually come to permanent pacemaker. We might consider placing the leadless pacemaker in this patient who is going to be very difficult to position leads and related to his ankylosing spondylitis. Current Visit: Yes (2) Intractable back pain Status: Acute Current Visit: Yes (3) Ankylosing spondylitis Status: Chronic Current Visit: No (4) COPD (chronic obstructive pulmonary disease) Status: Chronic Current Visit: No Cardiology - PN: Subj Interval history: Has had one more episode of high-grade AV block with narrow escape. We need to consider pacemaker and this will be passed on to the attending horse trainer tomorrow. He is clinically stable currently. Exam (Progress Note) - Constitutional Vitals: Period Temp Pulse Resp BP Sys/Ivey Pulse Ox Last 24 Hr 97.4 F-98.3 F 61-84 18-20 124-150/65-85 91-98 Exam: General:no acute distress. alert and oriented, mood and affect are normal HEENT: no new lesions, sclerae are clear, mouth and pharynx benign Neck: He is unable to move his neck from side to side related to fusion of the cervical spine, trachea midline, no JVD noted Lungs: no rales ronchi or wheeze is noted. pt comfortable without accesory muscle use to assist with breathing CV: RRR no murmur rub or gallop is noted. Abd: soft and nontender, BSNA, no masses. Ext: no cyanosis, clubbing or edema Neuro: grossly intact without focal neurologic deficit. Pleasant, Result/EKG - Labs CBC & BMP: 02/26/17 05:37 02/26/17 05:37 Labs: Laboratory Results - last 24 hr 02/26/17 02/26/17 05:37 05:37 WBC 12.9 H RBC 4.30 Hgb 14.7 Hct 40.9 L MCV 95.1 MCH 34 MCHC 35.9 RDW 12.2 Plt Count 225 MPV 11.1 Neut % (Auto) 90.1 H Lymph % (Auto) 2.2 L Caroline % (Auto) 5.7 Eos % (Auto) 0.0 Baso % (Auto) 0.2 Neut # (Auto) 11.7 H Lymph # (Auto) 0.3 L Caroline # (Auto) 0.7 Eos # (Auto) 0.0 Baso # (Auto) 0.0 Immature Gran % 1.8 Nucleated RBC % 0.0 Immature Gran # 0.23 Nucleated RBCs # 0.00 Hypochromasia Slight Sodium 137 Potassium 4.1 Chloride 97 L Carbon Dioxide 31 Anion Gap 13.1 BUN 21 H Creatinine 0.60 L GFR Calculation 153 BUN/Creatinine Ratio 35.00 H Glucose 124 H Calculated Osmolality 276.8 Calcium 8.5 Magnesium 2.5 H Specialty Discharge - Follow Up or Referrals Follow up with: Ciera Hoskins MD [Physician] - 03/24/17 8:30 am (PLEASE BRING ALL CURRENT MEDICATIONS AND INSURANCE CARDS TO THIS APPOINMENT. [phone])
--- NOTE | 2017-02-26 10:49 | Pulmonology Progress Note ---
Pulmonary - PN: Subj Interval history: This 66-year-old man has ankylosing spondylitis and a good bit of back pain. It has improved with change of therapy. Plans are for him to go to swing bed or rehab. His COPD is stable. 02/26/2017 patient has had some pain medication and he is a little sleepy at present. Had difficulty walking due to worsening neurologic problems with his legs. Dr. Issa has seen him today and the patient is having some AV block. He may need a pacemaker. Exam (Progress Note) - Constitutional Vitals: Period Temp Pulse Resp BP Sys/Ivey Pulse Ox Last 24 Hr 97.4 F-98.3 F 61-84 18-20 124-150/65-85 91-98 Exam: Patient is alert oriented vital signs normal. Pupils react to light. He has a very long white smith. Chest sounds clear. He has prolonged expiratory phase. Heart normal rate and rhythm no murmurs. Abdomen soft nontender no masses. Extremities no clubbing cyanosis or edema. He does have some chronic trophic changes in his lower extremities. Looks like postphlebitic type changes. Little change from yesterday. Results - Labs CBC & BMP: 02/26/17 05:37 02/26/17 05:37 Lab Results: I have reviewed the past 24 hour labs Assessment and Plan (1) Generalized weakness Status: Chronic Assessment and plan: We will need physical therapy at some point. Current Visit: Yes (2) Ankylosing spondylitis Status: Chronic Assessment and plan: Being managed by Dr. Hoskins for pain management. 02/26/[address] Hoskins. Current Visit: No (3) Chronic venous stasis dermatitis Status: Acute Assessment and plan: Calves are nontender. He has some discoloration of the lower extremities. Current Visit: No (4) Chronic back pain Status: Chronic Assessment and plan: Better with current management. 02/26/2017 again being managed by the pain clinic Dr. Hoskins. Current Visit: No Qualifiers: Back pain location: low back pain (5) COPD (chronic obstructive pulmonary disease) Status: Chronic Assessment and plan: No acute exacerbation. 02/26/2017 stable on current medicines. Current Visit: No Specialty Discharge - Follow Up or Referrals Follow up with: Ciera Hoskins MD [Physician] - 07/07/17 8:30 am (PLEASE BRING ALL CURRENT MEDICATIONS AND INSURANCE CARDS TO THIS APPOINMENT. [phone])
--- NOTE | 2017-02-26 11:31 | ECHO Report ---
Royer Fischer Exam Date: 02/25/2017 13:36 Referring Physician: Technologist: Kelly Doyle Age: 66 Ht (in): 76 Wt (lb): 261 Gender: M Exam Location: [facility] Echo Indications: back pain, AV Block, weakness, peripheral polyneuropathy BP: 150 / 65 HR: 65 Rhythm: Other Technical Quality: Technically difficult study IMPRESSIONS Mild concentric left ventricular hypertrophy with diastolic dysfunction. Left ventricular ejection fraction is estimated at 50-55 %. Normal right ventricular size. Normal right atrial size. The left atrium is mildly enlarged. Mildly thickened mitral valve with mild - moderate mitral regurgitation. Mild aortic valve sclerosis without stenosis. Mild aortic valve regurgitation. Morphologically normal tricuspid valve. Moderate tricuspid valve regurgitation. Tricuspid regurgitation velocities suggest a PAP of 53 mmHg. Morphologically normal pulmonic valve. Trivial pericardial effusion. Normal size aortic root and proximal ascending aorta. MEASUREMENTS (Male / Female) Normal Values 2D ECHO LV Diastolic Diameter PLAX 4.6 cm 4.2 - 5.9 / 3.9 - 5.3 cm LV Systolic Diameter PLAX 3.3 cm LV Fractional Shortening PLAX 27.5 % IVS Diastolic Thickness 1.7 cm 0.6 - 1.0 / 0.6 - 0.9 cm LVPW Diastolic Thickness 1.4 cm 0.6 - 1.0 / 0.6 - 0.9 cm RV Internal Dim ED PLAX 2.4 cm Aortic Root Diameter 3.0 cm LA Systolic Diameter LX 3.8 cm 3.0 - 4.0 / 2.7 - 3.8 cm DOPPLER TR Peak Velocity 326.0 cm/s TR Peak Gradient 42.5 mmHg FINDINGS Left Ventricle Mild concentric left ventricular hypertrophy with diastolic dysfunction. Left ventricular ejection fraction is estimated at 50-55 %. Right Ventricle Normal right ventricular size. Right Atrium Normal right atrial size. Left Atrium The left atrium is mildly enlarged. Mitral Valve Mildly thickened mitral valve with mild - moderate mitral regurgitation. Aortic Valve Mild aortic valve sclerosis without stenosis. Mild aortic valve regurgitation. Tricuspid Valve Morphologically normal tricuspid valve. Moderate tricuspid valve regurgitation. Tricuspid regurgitation velocities suggest a PAP of 53 mmHg. Pulmonic Valve Morphologically normal pulmonic valve. Mild pulmonary valve regurgitation. Pericardium Trivial pericardial effusion. Aorta Normal size aortic root and proximal ascending aorta. Jamie Issa MD (Electronically Signed) Final Date: 26 February 2017 11:29
[2017-02-26] MEDS: THEOPHYLLINE ER 300 MG TABLET PO SCH ×3 (12:13→22:19)
--- NOTE | 2017-02-26 12:20 | Pain Management Progress Note ---
Assessment and Plan (1) Intractable back pain Status: Acute Assessment and plan: I have reviewed the CT scan lumbar spine with no acute changes and will obtain a CT scan of thoracic spine to rule out acute fracture I will also add a 12 mcg an hour Duragesic patch 02/21 continue current medications for pain 02/22 I am writing his prescription for Duragesic patch and make him follow-up on with me in pain clinic in 1 month 02/23 I agree with possible transfer to [facility] if approved 02/24 continue current plan of care for now as far as pain management is concerned 02/26 I am increasing the Duragesic patch of 25 mcg an hour and replacing the [place] with Percocet 10 which may work better Current Visit: Yes Pain - Subjective Interval history: The patient reports worsening pain in the thoracic and lumbar spine. Patient is requesting increase in his medications. I have discussed with him about increasing the Duragesic patch and replacing the [place] with Percocet which may work better. Chart was reviewed in detail and seems he may need a pacemaker Exam - Constitutional Vitals: Period Temp Pulse Resp BP Sys/Ivey Pulse Ox Last 24 Hr 97.4 F-97.9 F 61-84 18-20 124-150/68-85 91-97 General appearance: severe distress - Head Head exam: Present: normal inspection - Eye Eye exam: Present: EOMI Pupils: Present: SAMSON - ENT ENT exam: Present: normal exam Ear exam: Present: intact - Neck Neck exam: Present: tenderness - Respiratory Respiratory exam: Present: chest wall tenderness, decreased breath sounds - Cardiovascular Cardiovascular exam: Present: irregular rhythm - GI/Abdominal GI/Abdominal exam: Present: distended - Extremities Exam Extremities exam: Present: normal inspection - Back Exam Back exam: Present: vertebral tenderness - Neurological Exam Neurological exam: Present: alert, oriented X3, abnormal gait - Skin Skin exam: Present: normal color Results - Labs CBC & BMP: 02/26/17 05:37 02/26/17 05:37 Lab Results: I have reviewed the past 24 hour labs Specialty Discharge - Follow Up or Referrals Follow up with: Ciera Hoskins MD [Physician] - 03/24/17 8:30 am (PLEASE BRING ALL CURRENT MEDICATIONS AND INSURANCE CARDS TO THIS APPOINMENT. [phone])
[2017-02-26] MEDS: fentaNYL 12 MCG/HR PATCH TRANSDERM SCH (12:23)
[2017-02-26] MEDS: fentaNYL 25 MCG/HR PATCH TRANSDERM SCH (13:09)
--- NOTE | 2017-02-26 16:19 | Hospitalist Progress Note ---
Assessment and Plan (1) Ankylosing spondylitis Status: Chronic Current Visit: No (2) Intractable back pain Status: Acute Assessment and plan: Pain management assisting, changes made today Current Visit: Yes Hospitalist: Subjective Interval history: No acute events overnight. Still with back pain, unchanged per patient. Exam - Constitutional Vitals: Period Temp Pulse Resp BP Sys/Ivey Pulse Ox Last 24 Hr 97.0 F-97.9 F 63-84 18-20 124-150/68-85 91-97 General appearance: over weight - Head Head exam: Present: normocephalic, atraumatic - Eye Eye exam: Present: EOMI Pupils: Present: SAMSON - ENT ENT exam: Present: normal exam - Neck Neck exam: Present: normal inspection - Respiratory Respiratory exam: Present: clear to auscultation bilaterally - Cardiovascular Cardiovascular exam: Present: regular rate and rhythm - GI/Abdominal GI/Abdominal exam: Present: normal bowel sounds, soft. Absent: tenderness, rebound - Extremities Exam Extremities exam: Present: normal inspection - Back Exam Back exam: Present: normal inspection - Neurological Exam Neurological exam: Present: alert, oriented X3 - Psychiatric Psychiatric exam: Present: normal affect, normal mood - Skin Skin exam: Present: warm, intact Results - Labs CBC & BMP: 02/26/17 05:37 02/26/17 05:37 Specialty Discharge - Follow Up or Referrals Follow up with: Ciera Hoskins MD [Physician] - 03/24/17 8:30 am (PLEASE BRING ALL CURRENT MEDICATIONS AND INSURANCE CARDS TO THIS APPOINMENT. [phone])
[2017-02-26] MEDS: oxyCODONE/ACETAMINOPHEN 5-325 MG TABLET PO PRN (21:21)
[2017-02-27] MEDS: METHOCARBAMOL INJ 750 MG in SODIUM CHLORIDE 0.9% 100 ML IV SCH ×3 (03:49→18:46)
[2017-02-27] MEDS: LEVOTHYROXINE 100 MCG TABLET PO SCH (06:09)
--- NOTE | 2017-02-27 06:20 | Pain Management Progress Note ---
Assessment and Plan (1) Intractable back pain Status: Acute Assessment and plan: I have reviewed the CT scan lumbar spine with no acute changes and will obtain a CT scan of thoracic spine to rule out acute fracture I will also add a 12 mcg an hour Duragesic patch 02/21 continue current medications for pain 02/22 I am writing his prescription for Duragesic patch and make him follow-up on with me in pain clinic in 1 month 02/23 I agree with possible transfer to [facility] if approved 02/24 continue current plan of care for now as far as pain management is concerned 02/26 I am increasing the Duragesic patch of 25 mcg an hour and replacing the [place] with Percocet 10 which may work better 02/27 continue current medications for pain control Current Visit: Yes Pain - Subjective Interval history: pain is better controlled now with change of medications and is happy with pain control Exam - Constitutional Vitals: Period Temp Pulse Resp BP Sys/Ivey Pulse Ox Last 24 Hr 97.0 F-97.9 F 63-85 18-22 128-156/68-80 95-98 General appearance: no acute distress - Head Head exam: Present: normal inspection - Eye Eye exam: Present: EOMI Pupils: Present: SAMSON - ENT ENT exam: Present: normal exam Ear exam: Present: intact Mouth exam: Present: normal external inspection - Neck Neck exam: Present: tenderness - Respiratory Respiratory exam: Present: decreased breath sounds - Cardiovascular Cardiovascular exam: Present: irregular rhythm. Absent: RRR - GI/Abdominal GI/Abdominal exam: Present: distended. Absent: ascites - Extremities Exam Extremities exam: Present: normal inspection - Back Exam Back exam: Present: vertebral tenderness - Neurological Exam Neurological exam: Present: abnormal gait - Skin Skin exam: Present: normal color Results - Labs CBC & BMP: 02/26/17 05:37 02/26/17 05:37 Lab Results: I have reviewed the past 24 hour labs Specialty Discharge - Follow Up or Referrals Follow up with: Ciera Hoskins MD [Physician] - 03/24/17 8:30 am (PLEASE BRING ALL CURRENT MEDICATIONS AND INSURANCE CARDS TO THIS APPOINMENT. [phone])
--- NOTE | 2017-02-27 09:20 | Neurology Progress Note ---
Neurology - PN : Subjective Interval history: Mr. Fischer continued to remain same. No new problems reported. Still quite weak. Getting cardiac evaluation done. His speech is fluent. Participating some in therapy. Exam (Progress Note) - Constitutional Vitals: Period Temp Pulse Resp BP Sys/Ivey Pulse Ox Last 24 Hr 97.0 F-97.9 F 63-85 18-22 128-156/68-80 95-98 Exam: GENERAL: Patient is in no acute distress. NECK: Neck is supple. There is no JVD. No carotid bruits present. No thyroid masses. CVS: First and second heart sounds are normal. There is no S3 present. Regular rate and rhythm. RESPIRATORY: Lungs are clear to auscultation without any rales or rhonchi. ABDOMEN: Soft and non-tender. Bowel sounds are present. There is no hepatosplenomegaly. EXT: There is 1+palpable edema. Peripheral pulses are present. Skin: No rashes but has a skin discoloration distally in lower extremities. Central Nervous system: General: Alert, awake and Oriented x 3 Speech: Fluent Comprehension: Intact and normal Facial expressions: Normal Cranial Nerves: CN1/Olfactory: Normal CN II/ Optic: Normal, Visual Chávez unreliable CN III, and : SAMSON & EOMI CN V: Normal & intact CN VII: face is symmetric CNVIII: Normal CN XI/X/XI/XII: Intact and Normal Motor: Bulk and Tone is normal. Strength in the right lower extremity 2-3/5 Strength in the left lower extremity 4/5 Strength in both upper extremities is 4+-5-/5 Sensory: Decreased for all the modalities of PP, LT and temp sense in the glove and stockings to patient Reflexes: Absent and symmetrical Cerebellar function: Normal finger to nose testing. Toes: Downgoing Gait: Not tested today Results - Labs CBC & BMP: 02/26/17 05:37 02/26/17 05:37 Assessment and Plan (1) Peripheral polyneuropathy Status: Acute Assessment and plan: Continue Neurontin at the same dose No further intervention needed from neuro standpoint Continue PT and OT. Consider swing bed placement. Current Visit: Yes Specialty Discharge - Follow Up or Referrals Follow up with: Ciera Hoskins MD [Physician] - 03/24/17 8:30 am (PLEASE BRING ALL CURRENT MEDICATIONS AND INSURANCE CARDS TO THIS APPOINMENT. [phone])
[2017-02-27] MEDS: FUROSEMIDE 20 MG TABLET PO SCH ×2 (09:29→17:27)
[2017-02-27] MEDS: miSOPROStol 200 MCG TABLET PO SCH (09:30)
[2017-02-27] MEDS: DEXAMETHASONE 4 MG TABLET PO SCH ×3 (09:30→20:37)
[2017-02-27] MEDS: MULTIVITAMIN (CENTRUM) TABLET PO SCH (09:30)
[2017-02-27] MEDS: FOLIC ACID 1 MG TABLET PO SCH (09:31)
[2017-02-27] MEDS: traZODone 50 MG TABLET PO SCH ×2 (09:31→20:37)
[2017-02-27] MEDS: LIDOCAINE 5% PATCH TRANSDERM SCH (09:32)
[2017-02-27] MEDS: ATROPINE 1 % OPH SOLN 5 ML BOTTLE BOTH EYES SCH ×3 (09:32→20:37)
[2017-02-27] MEDS: amLODIPine 10 MG TABLET PO SCH (09:33)
[2017-02-27] MEDS: ENOXAPARIN 40 MG/0.4 ML SYRINGE SUBCUT SCH (09:33)
[2017-02-27] MEDS: GABAPENTIN 100 MG CAPSULE PO SCH ×3 (09:33→20:37)
[2017-02-27] MEDS: PANTOPRAZOLE 40 MG TABLET PO SCH (09:34)
[2017-02-27] MEDS: prednisoLONE ACETATE 1% OPH SUSP 5 ML BOTTLE BOTH EYES SCH ×4 (09:34→20:38)
[2017-02-27] MEDS: POTASSIUM CHLORIDE 20 MEQ/15 ML UDCUP PO SCH ×2 (09:34→20:38)
[2017-02-27] MEDS: DESITIN 4OZ/NYSTATIN 15 GRAM MIXTURE PASTE TOP SCH ×2 (09:35→20:38)
[2017-02-27] MEDS: THIAMINE 100 MG TABLET PO SCH (09:35)
[2017-02-27] MEDS: IMIPRAMINE 25 MG TABLET PO SCH (09:35)
[2017-02-27] MEDS: CLORAZEPATE 7.5 MG TABLET PO SCH ×3 (09:35→20:37)
[2017-02-27] MEDS: BISOPROLOL 5 MG TABLET PO SCH (09:36)
[2017-02-27] MEDS ORDERED: TUBERCULIN SKIN TEST 0.1 ML SYRINGE INTRADERM ONE (09:56)
[2017-02-27] MEDS: oxyCODONE/ACETAMINOPHEN 5-325 MG TABLET PO PRN ×2 (10:30→18:46)
--- NOTE | 2017-02-27 10:48 | Pulmonology Progress Note ---
Pulmonary - PN: Subj Interval history: PLEASE DISREGARD THIS NOTE. DR. NASH WILL MAKE A NOTE FOR TODAY. Exam (Progress Note) - Constitutional Vitals: Period Temp Pulse Resp BP Sys/Ivey Pulse Ox Last 24 Hr 97.0 F-97.9 F 63-85 18-22 128-156/68-80 95-98 Results - Labs CBC & BMP: 02/26/17 05:37 02/26/17 05:37 Specialty Discharge - Follow Up or Referrals Follow up with: Ciera Hoskins MD [Physician] - 03/24/17 8:30 am (PLEASE BRING ALL CURRENT MEDICATIONS AND INSURANCE CARDS TO THIS APPOINMENT. [phone])
--- NOTE | 2017-02-27 10:49 | Pulmonology Progress Note ---
Pulmonary - PN: Subj Interval history: Is a 66-year-old white male. I saw him in consultation on 02/20/2017. At that time I thought the patient was an inpatient. He needs to be an inpatient. He is sick and immobile and has a good bit of pain. He has several severe illnesses. He is requiring multiple IV medicines for treatment and control of his symptoms. Hopefully he will be a candidate for rehab down the road. My impressions were. 1. Ankylosing spondylitis. Probable spinal stenosis 2. Past history of T9 compression fracture requiring kyphoplasty October 2013 3. Acute fall resulting in severe low back pain with immobility. Look for compression fracture 4. Peripheral sensory neuropathy. Symptoms have gradually worsened 5. Chronic venous stasis of the lower extremities 6. Vitamin B12 deficiency. On replacement. 7. Past history tobacco abuse 8. COPD/asthma 8. Past history of high blood pressure 9. Hypothyroidism 10. Hyperlipidemia 11. Past history of prostate cancer. Resected without recurrence. 12. See past 02/21/2017. See my note above concerning inpatient status. This patient has multiple illnesses. He is immobile secondary to pain and his illnesses. He is requiring multiple IV medicines for control of his symptoms. He needs to be made an inpatient and hopefully he will qualify for rehab or something else that will help him recover. The present time he is on IV Robaxin, IV Toradol, IV Decadron, IV morphine and a fentanyl patch. He says some dysuria but his urinalysis shows no evidence of infection. A neurology consultation is pending. Patient has a peripheral neuropathy. He has had a history of B12 deficiency and takes shots for this. He also has had a history strongly suggestive of spinal stenosis in the past. He has underlying ankylosing spondylitis. In the distant past there was a question of multiple sclerosis. 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 This best I can tell he does not have any symptoms of multiple sclerosis. I appreciate the consult from Dr. Hoskins. 02/22/2017. Patient's back pain is a little better. I think he is going to need rehabilitation. He notes that IV Robaxin is very helpful. He is on 500 IV piggyback every 8 hours. I think when he is converted he will probably need 1500 mg p.o. every 8 hours. Decadron seems to be working well for him. Dr. Yony Thacker neurological workup is underway. I appreciate Dr. Hoskins's help. I made no changes in the patient's regimen today. 02/24/2016. This patient continues to have severe back pain. This is almost impossible turning because of the pain. This tends a localized in the thoracolumbar area and the patient says he feels it on both sides he says it "radiates to my kidney area and to my sacroiliac area" bilateral. At the present time this patient is not able to take care of himself. I wonder if Dr. Hoskins could inject him and help with the severity of his symptoms. Dr. Yony Thacker workup of the patient's peripheral neuropathy is underway but the patient has not been able to undergo some of the test because of severe back pain. 02/24/2017. This patient is immobilized by back pain. Is not much I can do. I have increased his Robaxin-750 IV piggyback every 8 hours. He is asked for restarting of his Tranxene and I have ordered this was 7.5 3 times daily. We have also placed a lidocaine patch over his back. Patient's on IV Toradol and IV Decadron. He has underlying ankylosing spondylitis. I wonder if he will require injections in order to control his pain enough that we can get him up. Dr. Beatty is evaluated his lower extremity pain and has noted that this is a sensory neuropathy.. 02/27/2017. I have reviewed Dr. Mo Issa's cardiology consultation. Patient has a A-V dissociation and third-degree block at times. This results in significant bradycardia. At the Luis Manuel is evaluating for cardiac pacemaker and I agree with this. In the meantime the patient says his back pain is more tolerable. Electrolytes are normal. Creatinine is 0.6 with a BUN of 21. CBC is stable. There are no positive cultures. Patient was seen along with his . Tuan Philip nurse practitioner was also present Physical exam. Vital signs. See below Psychiatric. Oriented 3. Neurologic. Cranial nerves are intact. Iritis appears to be resolving. Some decreased hearing acuity bilaterally. Patient can move all 4 extremities. He complains of decreased sensation over his lower extremities. He has significant thoracic and lumbar back pain Lower extremities. Chronic venous stasis changes of the skin. Underlying edema is improved with bed rest. Neck. Symmetrical. No meningismus. Lymphatics. No submandibular cervical supraclavicular or epitrochlear adenopathy Chest. Symmetrical. Pectus excavatum. No chest wall tenderness. Breath sounds are clear Heart. No gallop Abdomen. Lax abdominal musculature. Positive bowel sounds. The remainder the physical exam is noncontributory Plan. 02/20/2017 1. Bone scan 2. Neurology consult per Govind concerning peripheral neuropathy 3. IV push Decadron 4. IV Robaxin 5. IV Toradol 6. Cytotec. 7. Watch for constipation 8. Have reviewed and reconciled his home medicines 9. See orders 02/21/2017. 1. See today's note above. 02/22/2017. 1. See today's note above. 2. This patient could benefit from rehab. 02/23/2017. 1. See today's note above 2. Immobilized secondary to severe back 02/24/2017. 1. See today's note above. 2. This patient is completely immobilized secondary to severe back pain. He cannot even turn over in bed. 02/27/2017. 1. AV dissociation with third-degree block and bradycardia. Agree with pacemaker. 2. See my note Exam (Progress Note) - Constitutional Vitals: Period Temp Pulse Resp BP Sys/Ivey Pulse Ox Last 24 Hr 97.0 F-97.9 F 63-85 18-22 128-156/68-80 95-98 Results - Labs CBC & BMP: 02/26/17 05:37 02/26/17 05:37 Specialty Discharge - Follow Up or Referrals Follow up with: Ciera Hoskins MD [Physician] - 03/24/17 8:30 am (PLEASE BRING ALL CURRENT MEDICATIONS AND INSURANCE CARDS TO THIS APPOINMENT. [phone])
[2017-02-27] MEDS: THEOPHYLLINE ER 300 MG TABLET PO SCH ×2 (11:35→23:42)
--- NOTE | 2017-02-27 11:49 | Cardiology Progress Note ---
Jose Houston Vanessa, RN, am scribing for, and in the presence of, Brennan Clemens MD 11:45. Assessment and Plan - Time spent with patient Time spent with patient: Greater than 30 minutes (1) High-grade atrioventricular block Status: Acute Assessment and plan: Holter monitoring revealed A-V dissociation with an episode of third degree AV block with pause of 4.0 seconds. He has indications for dual-chamber pacemaker. As whether or not he is a good candidate with his ankylosing spondylitis and spinal curvature. Current Visit: Yes (2) Intractable back pain Status: Chronic Assessment and plan: Related to recent fall and history of ankylosing spondylosis. Reports some improvement since pain medication regimen has been adjusted by Dr. Hoskins. Current Visit: Yes (3) Ankylosing spondylitis Status: Chronic Assessment and plan: Chronic. Current Visit: No (4) COPD (chronic obstructive pulmonary disease) Status: Chronic Assessment and plan: Appears to be stable at this time. This certainly may complicate sedation. Current Visit: No (5) Chronic back pain Status: Chronic Assessment and plan: He is managed by pain management. Current Visit: No Qualifiers: Back pain location: low back pain Cardiology - PN: Subj Interval history: PRIMARY ARMORED CAR MESSENGER: DR. PASCUAL (REMOTE PAST) SUMMARY: Mr. Fischer is a 63-year-old white male with risk factors significant for: Age, obesity, sedentary lifestyle, hypertension, family history of CAD, and former tobacco use. Past medical history includes ankylosing spondylitis, COPD, pulmonary hypertension, prostate cancer, anxiety/depression, and chronic back pain. Patient has had a previous complete fusion of the cervical, thoracic, and lumbar spine due to ankylosing spondylitis which makes it nearly impossible for him to lie flat. He was admitted with intractable back pain on February 19. Cardiac monitoring noted him to have episodes of bradycardia with AV dissociation, evidence of AV block. Cardiology was asked to see to evaluate, and he has now had 24 hour Holter monitor completed. He is also being seen by Dr. Hoskins for pain management, and he is being seen by pulmonary as his ankylosing spondylitis has caused breathing difficulty, and he has also had some issues with bronchospastic airway. Echocardiogram on February 25 with mild LVH , diastolic dysfunction, and ejection fraction 50-55%, moderate TR with PA pressure 43 mmHg, and mild MR and AVR with no significant valvular abnormalities. February: Patient is awake and alert this morning. Patient's significant other is present with him at bedside. He is not short of breath. He does admit to having brief chest discomfort earlier, he contributes this to having "possible gas". Discomfort is nonradiating, and also alleviated after repositioning. He is experiencing some back pain, but this is improved from earlier this morning after completing ADLs. Systolic BP 140-155 mmHg. Cardiac monitoring with sinus rhythm, PACs, pulse rate 60s. Holter monitoring over the weekend revealed episodes of high grade AV block and an episode of third-degree AV block with significant pauses of 4.0 seconds. Denies dizziness, lightheadedness, or other presyncopal symptoms. Appetite is good. Certainly this patient meets criteria for dual-chamber pacemaker. He is not on any medications to cause his bradycardia and AV block. His issue is he has ankylosing spondylitis that causes issues with significant kyphosis curvature of his spine making it difficult for the patient to lay back. Also the curvature of his spine fax to some degree Eraxis. On the examination though I think he certainly has accessibility to his left subclavian since he is right- handed. I discussed pacemaker implantation with him and that we could attempt a dual-chamber pacemaker but I would want to do ultrasound of his right and left upper extremities to make sure the anatomy is appropriate. We will also have to do a venogram at the time of the procedure to look at accessibility. If we can then try to attempt dual-chamber pacemaker. If this could not be done a wireless single-chamber pacemaker with him become his option. We will do a ultrasound I think of his right left upper extremity especially his subclavian veins to look into accessibility as well. We will discuss this further in detail in terms of doing this after we have those results. Also discussed with him I would prefer to have anesthesia help sedate him since difficulty with intubation would be a major issue. At this time they would like to attempt having a dual-chamber pacemaker over a single-chamber wireless pacemaker if possible. I did discuss father in detail the indications of procedure as well as how we will carried out in the risk. I discussed pacemaker implantation procedure with the patient and available family. I reviewed with them the indications of the procedure as well as the basis of how the procedure itself would be carried out. I also reviewed with them the possible risks which include but not necessarily limited to surgical site bruising pain swelling or pocket hematoma that may require surgical evacuation. Discussed that the pain, swelling, bruising could be significant. Also discussed the possibility of surgical site or pocket infection that may require oral or IV antibiotics or even the possibility of surgical drainage of the pocket or even removal of the pacemaker system. Also discussed the possibility of hemothorax or pneumothorax that may require chest tube and possible blood transfusion. Also discussed the possibility of myocardial perforation that may lead to pericardial tamponade and the need for pericardiocentesis and blood transfusion. They do understand that because of his ankylosing spondylitis with spinal curvature that this would increase some of his risk in terms of complications and even having to deal with some of his potential complications. They voice understanding and agree to proceed if it is deemed on evaluation to be in approachable solution from the subclavian approach. We will again discuss this after we have his ultrasound. Exam (Progress Note) - Constitutional Vitals: Period Temp Pulse Resp BP Sys/Ivey Pulse Ox Last 24 Hr 97.0 F-97.9 F 63-85 18-22 128-156/68-80 95-98 Exam: General: The patient is awake and alert and oriented x 3. Mood and affect are normal. Pleasant and cooperative. HEENT: Normocephalic, sclera are clear there are no lid xanthelasmas noted. Oral mucosa is free of cyanosis or pallor. Neck: The neck is rigid and fixed without JVD. Carotid upstrokes are normal volume and amplitude. There is no audible bruit. There is no palpable thyroid. Trachea is midline. Lungs: The patient is comfortable at rest without intercostal retractions or abdominal breathing. There are no adventitial sounds rales rubs rhonchi or wheezes noted. Cardiovascular: The PMI is nondisplaced. No palpable thrill S3 or S4. Irregularly irregular with no murmur, rub, or gallop noted. Dorsalis pedis posterior tibial and femoral pulses are 2+ and equal bilaterally. Abdomen: Abdomen is soft and nontender with normal active bowel sounds. There is no palpable mass or organomegaly noted. There is no midline bruit. Extremities exam: There is no cyanosis clubbing or edema. Bilateral lower extremities with reddened skin warm to touch. No current numbness or tingling. Skin: Skin is warm and dry without ecchymosis or urticaria or skin rash. There are no palpable nodules. Musculoskeletal: There is severe angulation of the cervical spine with fused thoracic spine as well. Result/EKG - Labs CBC & BMP: 02/26/17 05:37 02/26/17 05:37 Lab Results: I have reviewed the past 24 hour labs - Impressions Impressions: Telemetry was sinus rhythm with PACs versus sinus arrhythmia. Holter is noted please see the full report. Evidence of episodes of third- degree AV block with pauses of 4.0 seconds. - Diagnostic Findings Procedure: CT: image reviewed by me, report reviewed by me - EKG EKG results: interpreted by me, no acute changes EKG shows: sinus rhythm (PACs) Specialty Discharge - Follow Up or Referrals Follow up with: Ciera Hoskins MD [Physician] - 03/24/17 8:30 am (PLEASE BRING ALL CURRENT MEDICATIONS AND INSURANCE CARDS TO THIS APPOINMENT. [phone]) I, Brennan Clemens MD, personally performed the services described in this documentation, ascribed by Jojo Garcia RN in my presence, and it is both accurate and complete 149 .
--- NOTE | 2017-02-27 15:09 | Ultrasound Report ---
Exam: Bilateral upper extremity venous Doppler ultrasound Comparison: None Clinical history: Evaluate for pacemaker Technique: Duplex scan of the upper extremity veins using B-mode/grayscale scaled imaging and Doppler spectral analysis and color flow. Multiple vein measurements were obtained. Findings: Major venous structures of the lower extremities demonstrate a normal course and caliber. Normal color-flow study and spectral analysis. There is normal flow in the internal jugular, subclavian, axillary, cephalic, basilic, brachial, radial, and ulnar veins. Normal compressibility and augmentation. Multiple measurements are were recorded and are available for review on the accompanying radiology upper extremity vascular sheet. Right subclavian vein 0.29 cm and left subclavian vein 0.42 cm. Impression: No evidence to suggest venous thrombosis within either upper extremity. Ultrasound images were captured and stored. PROCEDURE INTERPRETED AT [facility] DEPARTMENT OF RADIOLOGY Final Report Signed by: Dr. Aniya Milligan
--- NOTE | 2017-02-27 16:31 | Hospitalist Progress Note ---
Assessment and Plan (1) Ankylosing spondylitis Status: Chronic Current Visit: No (2) Intractable back pain Status: Chronic Assessment and plan: Pain management assisting Current Visit: Yes Hospitalist: Subjective Interval history: No acute events overnight. Back pain is a little more tolerable today. Cardiology considering pacemaker. Social work assisting with rehab placement. Exam - Constitutional Vitals: Period Temp Pulse Resp BP Sys/Ivey Pulse Ox Last 24 Hr 97.2 F-98.2 F 72-90 18-22 126-156/74-82 95-100 General appearance: over weight - Head Head exam: Present: normocephalic, atraumatic - Eye Eye exam: Present: EOMI Pupils: Present: SAMSON - ENT ENT exam: Present: normal exam - Neck Neck exam: Present: normal inspection - Respiratory Respiratory exam: Present: clear to auscultation bilaterally. Absent: wheezes - Cardiovascular Cardiovascular exam: Present: regular rate and rhythm - GI/Abdominal GI/Abdominal exam: Present: normal bowel sounds - Extremities Exam Extremities exam: Present: normal inspection - Back Exam Back exam: Present: normal inspection - Neurological Exam Neurological exam: Present: alert, oriented X3 - Psychiatric Psychiatric exam: Present: normal affect, normal mood - Skin Skin exam: Present: warm, intact Results - Labs CBC & BMP: 02/26/17 05:37 02/26/17 05:37 Specialty Discharge - Follow Up or Referrals Follow up with: Ciera Hoskins MD [Physician] - 03/24/17 8:30 am (PLEASE BRING ALL CURRENT MEDICATIONS AND INSURANCE CARDS TO THIS APPOINMENT. [phone])
[2017-02-28] MEDS: oxyCODONE/ACETAMINOPHEN 5-325 MG TABLET PO PRN ×3 (04:49→21:22)
[2017-02-28] MEDS: METHOCARBAMOL INJ 750 MG in SODIUM CHLORIDE 0.9% 100 ML IV SCH ×3 (04:49→21:19)
[2017-02-28] MEDS: LEVOTHYROXINE 100 MCG TABLET PO SCH (06:26)
--- NOTE | 2017-02-28 06:34 | Cardiology Progress Note ---
Assessment and Plan (1) High-grade atrioventricular block Status: Acute Assessment and plan: Patient needs a pacemaker. We will attempt dual-chamber pacemaker hopefully today. Will ask anesthesia to see the patient because of his ankylosing spondylitis and spinal curvature. He would be a difficult intubation. Current Visit: Yes (2) Intractable back pain Status: Chronic Assessment and plan: Related to recent fall and history of ankylosing spondylosis. This is followed by chronic pain clinic. Current Visit: Yes (3) Ankylosing spondylitis Status: Chronic Assessment and plan: Chronic. This of course affected the spinal curvature and affixed our approaches. Current Visit: No (4) COPD (chronic obstructive pulmonary disease) Status: Chronic Assessment and plan: Appears to be stable at this time. This certainly may complicate sedation. Current Visit: No (5) Chronic back pain Status: Chronic Assessment and plan: He is managed by pain management. Current Visit: No Qualifiers: Back pain location: low back pain Cardiology - PN: Subj Interval history: Patient has no complaints today. There has been no change in symptomatology. He has had no syncope or near syncope or chest pain. He has his chronic pain related to his ankylosing spondylitis. He said no changes since yesterday no new complaints. The patient's upper extremity venous Dopplers revealed normal anatomy without abnormalities. I think attempting a dual-chamber pacemaker from his left subclavian would be appropriate. I discussed how we would approach this again with the patient and his . Also reviewed with them again indication procedure had to be carried out the risk. They voiced understanding and agreed to proceed. We will ask anesthesia to see the patient because of the difficult intubation we would have complications. Exam (Progress Note) - Constitutional Vitals: Period Temp Pulse Resp BP Sys/Ivey Pulse Ox Last 24 Hr 97.3 F-98.2 F 72-90 18-20 120-153/77-82 97-100 Exam: General: The patient is awake and alert and oriented x 3. Mood and affect are normal. Pleasant and cooperative. HEENT: Normocephalic, sclera are clear there are no lid xanthelasmas noted. Oral mucosa is free of cyanosis or pallor. Neck: The neck is rigid and fixed without JVD. Carotid upstrokes are normal volume and amplitude. There is no audible bruit. There is no palpable thyroid. Trachea is midline. Lungs: The patient is comfortable at rest without intercostal retractions or abdominal breathing. There are no adventitial sounds rales rubs rhonchi or wheezes noted. Cardiovascular: The PMI is nondisplaced. No palpable thrill S3 or S4. Regular rhythm with no murmur, rub, or gallop noted. Dorsalis pedis posterior tibial and femoral pulses are 2+ and equal bilaterally. Abdomen: Abdomen is somewhat protuberant soft and nontender with normal active bowel sounds. There is no palpable mass or organomegaly noted. There is no midline bruit. Extremities exam: There is no cyanosis clubbing or edema. Bilateral lower extremities with reddened skin warm to touch. No current numbness or tingling. Skin: Skin is warm and dry without ecchymosis or urticaria or skin rash. There are no palpable nodules. Musculoskeletal: There is severe angulation of the cervical spine with fused thoracic spine as well. Result/EKG - Labs CBC & BMP: 02/26/17 05:37 02/26/17 05:37 Lab Results: I have reviewed the past 24 hour labs - Impressions Impressions: Telemetry with normal sinus rhythm at least on the strip that was presented. Specialty Discharge - Follow Up or Referrals Follow up with: Ciera Hoskins MD [Physician] - 03/24/17 8:30 am (PLEASE BRING ALL CURRENT MEDICATIONS AND INSURANCE CARDS TO THIS APPOINMENT. [phone])
[2017-02-28] MEDS ORDERED: ceFAZolin 1,000 MG VIAL IRRIG ONE (06:38)
[2017-02-28] MEDS ORDERED: SODIUM CHLORIDE 0.9% 1,000 ML IV SCH ×2 (07:00)
[2017-02-28] MEDS ORDERED: ceFAZolin 1,000 MG VIAL ONE ×2 (08:59→09:46)
[2017-02-28] MEDS ORDERED: TISSUE ADHESIVE 1 EACH APPLICATOR TOP ONE (08:59)
[2017-02-28] MEDS ORDERED: LIDOCAINE 1% 20 ML VIAL ONE (08:59)
--- NOTE | 2017-02-28 09:04 | History and Physical Update ---
History and Physical Update - History and Physical H&P was reviewed, the patient examined and there: are no changes in the patients condition since last H&P was completed. - Dictation Physical: refer to H&P completed by admitting physician - Physical Exam Mental Status: alert and oriented Heart: regular rate and rhythm Lung: clear to auscultation Abdomen: within normal limits Vitals: within normal limits History and Physical Changes: none
[2017-02-28] MEDS ORDERED: NITROGLYCERIN DRIP 50 MG/250 ML BOTTLE IV ONE (10:19)
--- NOTE | 2017-02-28 10:45 | Pulmonology Progress Note ---
Pulmonary - PN: Subj Interval history: Is a 66-year-old white male. I saw him in consultation on 02/20/2017. At that time I thought the patient was an inpatient. He needs to be an inpatient. He is sick and immobile and has a good bit of pain. He has several severe illnesses. He is requiring multiple IV medicines for treatment and control of his symptoms. Hopefully he will be a candidate for rehab down the road. My impressions were. 1. Ankylosing spondylitis. Probable spinal stenosis 2. Past history of T9 compression fracture requiring kyphoplasty October 2013 3. Acute fall resulting in severe low back pain with immobility. Look for compression fracture 4. Peripheral sensory neuropathy. Symptoms have gradually worsened 5. Chronic venous stasis of the lower extremities 6. Vitamin B12 deficiency. On replacement. 7. Past history tobacco abuse 8. COPD/asthma 8. Past history of high blood pressure 9. Hypothyroidism 10. Hyperlipidemia 11. Past history of prostate cancer. Resected without recurrence. 12. See past 02/21/2017. See my note above concerning inpatient status. This patient has multiple illnesses. He is immobile secondary to pain and his illnesses. He is requiring multiple IV medicines for control of his symptoms. He needs to be made an inpatient and hopefully he will qualify for rehab or something else that will help him recover. The present time he is on IV Robaxin, IV Toradol, IV Decadron, IV morphine and a fentanyl patch. He says some dysuria but his urinalysis shows no evidence of infection. A neurology consultation is pending. Patient has a peripheral neuropathy. He has had a history of B12 deficiency and takes shots for this. He also has had a history strongly suggestive of spinal stenosis in the past. He has underlying ankylosing spondylitis. In the distant past there was a question of multiple sclerosis. This did not returning officer to be the case. This best I can tell he does not have any symptoms of multiple sclerosis. I appreciate the consult from Dr. Hoskins. 02/22/2017. Patient's back pain is a little better. I think he is going to need rehabilitation. He notes that IV Robaxin is very helpful. He is on 500 IV piggyback every 8 hours. I think when he is converted he will probably need 1500 mg p.o. every 8 hours. Decadron seems to be working well for him. Dr. Yony Thacker neurological workup is underway. I appreciate Dr. Hoskins's help. I made no changes in the patient's regimen today. 02/24/2016. This patient continues to have severe back pain. This is almost impossible turning because of the pain. This tends a localized in the thoracolumbar area and the patient says he feels it on both sides he says it "radiates to my kidney area and to my sacroiliac area" bilateral. At the present time this patient is not able to take care of himself. I wonder if Dr. Hoskins could inject him and help with the severity of his symptoms. Dr. Yony Thacker workup of the patient's peripheral neuropathy is underway but the patient has not been able to undergo some of the test because of severe back pain. 02/24/2017. This patient is immobilized by back pain. Is not much I can do. I have increased his Robaxin-750 IV piggyback every 8 hours. He is asked for restarting of his Tranxene and I have ordered this was 7.5 3 times daily. We have also placed a lidocaine patch over his back. Patient's on IV Toradol and IV Decadron. He has underlying ankylosing spondylitis. I wonder if he will require injections in order to control his pain enough that we can get him up. Dr. Beatty is evaluated his lower extremity pain and has noted that this is a sensory neuropathy.. 02/27/2017. I have reviewed Dr. Mo Issa's cardiology consultation. Patient has a A-V dissociation and third-degree block at times. This results in significant bradycardia. At the Luis Manuel is evaluating for cardiac pacemaker and I agree with this. In the meantime the patient says his back pain is more tolerable. Electrolytes are normal. Creatinine is 0.6 with a BUN of 21. CBC is stable. There are no positive cultures. Patient was seen along with his . Tuan Philip nurse practitioner was also present 02/28/2017. Patient's for cardiac pacemaker today. His pain seems to be under better control. I discussed the case with anesthesiology. Patient's was present. CBC and BMP are normal. Labs been reviewed. Medicines have been reviewed. Patient stable from a pulmonary standpoint. Physical exam. Vital signs. See below Psychiatric. Oriented 3. Neurologic. Cranial nerves are intact. Iritis appears to be resolving. Some decreased hearing acuity bilaterally. Patient can move all 4 extremities. He complains of decreased sensation over his lower extremities. He has significant thoracic and lumbar back pain Lower extremities. Chronic venous stasis changes of the skin. Underlying edema is improved with bed rest. Neck. Symmetrical. No meningismus. Lymphatics. No submandibular cervical supraclavicular or epitrochlear adenopathy Chest. Symmetrical. Pectus excavatum. No chest wall tenderness. Breath sounds are clear Heart. No gallop Abdomen. Lax abdominal musculature. Positive bowel sounds. The remainder the physical exam is noncontributory Plan. 02/20/2017 1. Bone scan 2. Neurology consult per Govind concerning peripheral neuropathy 3. IV push Decadron 4. IV Robaxin 5. IV Toradol 6. Cytotec. 7. Watch for constipation 8. Have reviewed and reconciled his home medicines 9. See orders 02/21/2017. 1. See today's note above. 02/22/2017. 1. See today's note above. 2. This patient could benefit from rehab. 02/23/2017. 1. See today's note above 2. Immobilized secondary to severe back 02/24/2017. 1. See today's note above. 2. This patient is completely immobilized secondary to severe back pain. He cannot even turn over in bed. 02/27/2017. 1. AV dissociation with third-degree block and bradycardia. Agree with pacemaker. 2. See my note 02/28/2017. 1. See my note above. 2. Pacemaker placement today Exam (Progress Note) - Constitutional Vitals: Period Temp Pulse Resp BP Sys/Ivey Pulse Ox Last 24 Hr 96.9 F-98 F 72-89 18-20 120-153/77-82 95-99 Results - Labs CBC & BMP: 02/26/17 05:37 02/26/17 05:37 Specialty Discharge - Follow Up or Referrals Follow up with: Ciera Hoskins MD [Physician] - 03/24/17 8:30 am (PLEASE BRING ALL CURRENT MEDICATIONS AND INSURANCE CARDS TO THIS APPOINMENT. [phone])
[2017-02-28] MEDS ORDERED: MIDAZOLAM 2 MG/2 ML VIAL ONE (12:04)
[2017-02-28] MEDS ORDERED: fentaNYL 100 MCG/2 ML VIAL ONE (12:04)
--- NOTE | 2017-02-28 12:06 | Operative Note ---
Date of procedure: 02/28/17 Procedure Preformed: Dual-chamber pacemaker system implantation. Surgeon / Physician: Brennan Clemens Photographic Supervisor: Mimi Garcia Post-op diagnosis: same Findings: Successful dual-chamber pacemaker system implantation. Specimens: none sent Estimated blood loss: minimal Condition: stable Anesthesia: local, conscious sedation Disposition: floor
--- NOTE | 2017-02-28 12:21 | Cardiac Pacemaker ---
- Preoperative diagnosis Date of Procedure:: 02/28/17 Preoperative Diagnosis: third degree atrioventricular block Pre-op Diagnosis: Third-degree AV block. Post-op diagnosis: same Procedure: History: 66-year-old man with third-degree AV block. Pre-Op diagnosis: Third-degree AV block. Postop diagnosis: Third-degree AV block post pacemaker implantation. Procedures: 1. Left subclavian venogram. 2. Fluoroscopic positioning of right atrial and right ventricular leads. 3. Threshold testing of right atrial and right ventricular leads. 4. Surgical implantation dual-chamber pacemaker left chest. Contrast: Visipaque 30 ml. Medications: Preoperative Benadryl and Valium given orally. Lidocaine 1% SQ 30 ml; nitroglycerin 200 mcg left arm IVP, Ancef 1 gm IVPB, Ancef flush. Estimated blood loss: minimal Sponge count: Correct Pacemaker equipment: 1. Pacemaker generator: [employer]Brck [employer]visa MRI DR, model# A2DR01, serial#[id number]. 2. Atrial lead: Medtronic model#5076-52, serial #[id number]. This is a bipolar active fixation lead. Sensed P-wave is 4.9 mv. At a pulse width of 0.5 ms the threshold is 1.2 volts, current 1.8 mA, resistance 727 ohms, slew rate 1.0 . 3. Ventricular lead: Medtronic model#5076-58, serial#[id number]. This is a bipolar active fixation lead. Sensed R-wave is 24.5 mv. At a pulse width of 0.5 ms the threshold is 0.8 volts, current 0.7 mA, resistance 1147 ohms, slew rate 4 . Discription of procedure: After informed consent the patient was given preoperative medication. They were then brought to the catheterization laboratory where their upper chest was prepped and draped in the usual sterile fashion. Prior to draping the patient we did obtain left subclavian venogram since the patient was going to have to be in a wedged up right position because his ankylosing spondylitis at this created a lot of curvature of his spine issues in her anatomical issues. We obtained 3 left subclavian venogram was, the first was in adequate and the second one was fairly adequate. Since the vessel appeared to be small including the subclavian vein we carried out intravenous nitroglycerin of the left arm and then left subclavian venogram with again obtained. There is no real change in the size of the vessel. Patient then received sedation by anesthesia. Fluoroscopy and cinematography was used to obtain a left subclavian venogram for mapping. Local anesthesia with lidocaine below the left clavicle was obtained. Sharp dissection with scalpel was then used to cut through the skin and subcutaneous tissue to the pectoralis fascia. The [place] scissors were then used to create a superior and inferior pocket with also using blunt dissection. Antibiotic sponge was placed in the pocket at this time. At this point using fluoroscopy and the subclavian venogram the subclavian vein was cannulated using needlestick and guidewires. Sheaths were then placed into the vein. Through the medial sheath the ventricular lead was advanced, through the lateral sheath the atrial lead was advanced. Under fluoroscopy the right ventricular lead was advanced into the RV outflow track and then positioned into the ventricle into a good position. Thresholds were good and they remained stable. The atrial lead was then positioned and obtained good spot with good thresholds that remained stable. Sheaths were then peeled away. The leads were then sutured in position using 2-0 Ethibond with 2 stitches on each sleeve. Antibiotic sponge was removed from the pocket and the pocket irrigated with antibiotic solution. Stylettes were completely removed from the leads and final thresholds were measured that remained stable. Pacemaker generator was then connected to the ventricular and atrial lead. Each lead was identified by its serial number and then placed into the appropriate header position. Each header set screw was tightened on the appropriate lead and then each lead was tugged on demonstrating it was well seated. Surgifoam was placed in the pocket for improved hemostasis. Counts were correct. Pacemaker generator was then placed into the pocket and sutured in position with one stitch of 2-0 Ethibond. Pacemaker pocket was then closed using 2 layers of 3-0 Vicryl and one subreticular layer of 4-0 Vicryl. Exofin was used to seal the wound. Patient, tolerated the procedure well and there were no immediate complications. Patient was returned to their room and the fact transferred to telemetry. Implants: See above Anesthesia: MAC (Per anesthesia please see their report), minimal conscious sedation (This is per anesthesia please see that report) Surgeon / Physician: Brennan Clemens Firer Boiler: other (Miim Garcia RT, Solis Flowers CRNA RT) Estimated blood loss: minimal Specimens: none sent Condition: stable Disposition: floor - Medications / Follow-up Referrals: Ciera Hoskins MD [Physician] - 03/24/17 8:30 am (PLEASE BRING ALL CURRENT MEDICATIONS AND INSURANCE CARDS TO THIS APPOINMENT. [phone]) New Prescriptions: Hydrocodone/Acetaminophen [[place] 7.5-325 Tablet] 1 each PO Q6-8H PRN #20 tablet PRN Reason: Pain Methocarbamol Tab [Robaxin Tab] 750 mg PO QID PRN #20 tablet PRN Reason: Muscle Pain
--- NOTE | 2017-02-28 12:57 | XRay Report ---
Portable chest Date: 02/28/2017 Clinical history: Lead placement Comparison: 12/09/2015 Technique: Portable AP sitting chest Findings: Stable cardiomegaly with interval insertion of left subclavian atrioventricular permanent pacemaker. No pneumothorax. Chronic scarring in the left hemithorax with progressive diffuse parenchymal findings with small pleural effusions. Prior mid thoracic kyphoplasty with degenerative changes. Impression: Interval insertion left subclavian atrioventricular permanent pacemaker is no pneumothorax. Chronic scarring with progressive atelectasis/infiltration/edema at the lung bases with small pleural effusions. PROCEDURE INTERPRETED AT [facility] DEPARTMENT OF RADIOLOGY Final Report Signed by: Dr. Aniya Milligan
--- NOTE | 2017-02-28 14:12 | Anesthesia Post-Op ---
Anesthesia Post OP - Post Ansesthetic Evaluation Patient seen in post op: Yes Resp: within normal limits CV: within normal limits Mental: within normal limits Temp: within normal limits [id number]: within normal limits Nausea and Vomiting: within normal limits Pain: within normal limits
--- NOTE | 2017-02-28 15:18 | Hospitalist Progress Note ---
Assessment and Plan (1) Ankylosing spondylitis Status: Chronic Current Visit: No (2) Intractable back pain Status: Chronic Assessment and plan: Pain management assisting Current Visit: Yes (3) High-grade atrioventricular block Status: Acute Assessment and plan: s/p dual chamber pacemaker placement today Current Visit: Yes Hospitalist: Subjective Interval history: No acute events overnight. Patient seen today on telemetry floor after pacemaker placement. He reports some mild pain. Working for placement for when he is ready for discharge Exam - Constitutional Vitals: Period Temp Pulse Resp BP Sys/Ivey Pulse Ox Last 24 Hr 96.9 F-98 F 78-89 18-20 120-149/77-82 95-99 General appearance: over weight - Head Head exam: Present: normocephalic, atraumatic - Eye Eye exam: Present: EOMI Pupils: Present: SAMSON - ENT ENT exam: Present: normal exam - Neck Neck exam: Present: normal inspection - Respiratory Respiratory exam: Present: clear to auscultation bilaterally. Absent: rhonchi, wheezes - Cardiovascular Cardiovascular exam: Present: regular rate and rhythm - GI/Abdominal GI/Abdominal exam: Present: normal bowel sounds, soft. Absent: tenderness, rebound - Extremities Exam Extremities exam: Present: normal inspection - Back Exam Back exam: Present: normal inspection - Neurological Exam Neurological exam: Present: alert, oriented X3 - Psychiatric Psychiatric exam: Present: normal affect, normal mood - Skin Skin exam: Present: warm, intact Results - Labs CBC & BMP: 02/26/17 05:37 02/26/17 05:37 Quality Measures - VTE Contraindication to Pharmacological VTE Prophylaxis: High Risk of Bleeding Specialty Discharge - Follow Up or Referrals Follow up with: Ciera Hoskins MD [Physician] - 03/24/17 8:30 am (PLEASE BRING ALL CURRENT MEDICATIONS AND INSURANCE CARDS TO THIS APPOINMENT. [phone])
[2017-02-28] MEDS: THIAMINE 100 MG TABLET PO SCH (15:22)
[2017-02-28] MEDS: BISOPROLOL 5 MG TABLET PO SCH (15:22)
[2017-02-28] MEDS: miSOPROStol 200 MCG TABLET PO SCH (15:23)
[2017-02-28] MEDS: IMIPRAMINE 25 MG TABLET PO SCH (15:24)
[2017-02-28] MEDS: MULTIVITAMIN (CENTRUM) TABLET PO SCH (15:24)
[2017-02-28] MEDS: CLORAZEPATE 7.5 MG TABLET PO SCH ×3 (15:25→21:21)
[2017-02-28] MEDS: FUROSEMIDE 20 MG TABLET PO SCH ×2 (15:25→15:26)
[2017-02-28] MEDS: FOLIC ACID 1 MG TABLET PO SCH (15:27)
[2017-02-28] MEDS: PANTOPRAZOLE 40 MG TABLET PO SCH (15:27)
[2017-02-28] MEDS: DEXAMETHASONE 4 MG TABLET PO SCH ×3 (15:28→21:21)
[2017-02-28] MEDS: ATROPINE 1 % OPH SOLN 5 ML BOTTLE BOTH EYES SCH ×2 (15:29→21:22)
[2017-02-28] MEDS: traZODone 50 MG TABLET PO SCH ×2 (15:29→21:21)
[2017-02-28] MEDS: POTASSIUM CHLORIDE 20 MEQ/15 ML UDCUP PO SCH ×2 (15:31→21:21)
[2017-02-28] MEDS: amLODIPine 10 MG TABLET PO SCH (15:33)
[2017-02-28] MEDS: prednisoLONE ACETATE 1% OPH SUSP 5 ML BOTTLE BOTH EYES SCH ×4 (15:33→21:22)
[2017-02-28] MEDS: LIDOCAINE 5% PATCH TRANSDERM SCH (15:34)
[2017-02-28] MEDS: DESITIN 4OZ/NYSTATIN 15 GRAM MIXTURE PASTE TOP SCH ×2 (15:34→21:23)
[2017-02-28] MEDS: THEOPHYLLINE ER 300 MG TABLET PO SCH ×2 (15:41→22:14)
[2017-02-28] MEDS: GABAPENTIN 100 MG CAPSULE PO SCH ×3 (15:41→21:21)
[2017-02-28] MEDS: ENOXAPARIN 40 MG/0.4 ML SYRINGE SUBCUT SCH (15:45)
--- NOTE | 2017-02-28 16:06 | Event Note ---
Patient stable post pacemaker. His left chest is stable. He is having no problems or issues. Chest x-ray post procedures without pneumothorax of the pathology.
[2017-02-28] MEDS: LORazepam 1 MG TABLET PO PRN (21:21)
[2017-03-01 04:08] LABS: Basophils % 0.2 % (0.0-0.8); Eosinophils % 0.1 % (0.00-10.9); Hematocrit 39.7 VOL% (42.0-52.0); Hemoglobin 13.8 GM/DL (14.0-18.0); Immature Granulocytes % 1.5 %; Immature Granulocytes Absolute 0.21 #; Lymphocytes # 0.3 10*3/uL (1.4-4.0); Lymphocytes % 2.1 % (21.2-54.2); Mean Corpuscular HGB Conc 34.8 GM/DL (32-36); Mean Corpuscular Hemoglobin 33 PG (27-34); Mean Corpuscular Volume 96.1 FL (87-102); Mean Platelet Volume 11.4 FL (9.6-12.0); Monocytes # 1.4 10*3/uL (0.11-0.8); Monocytes % 9.7 % (1.7-12.7); Neutrophils # 12.1 10*3/uL (1.4-7.4); Neutrophils % 86.4 % (38.7-73.9); Platelet Count 223 T/CUMM (130-400); Red Blood Count 4.13 MC/CUMM (3.8-5.5); Red Cell Distribution Width 12.5 % (9.3-17.3)
[2017-03-01] MEDS: METHOCARBAMOL INJ 750 MG in SODIUM CHLORIDE 0.9% 100 ML IV SCH ×3 (04:21→20:30)
[2017-03-01] MEDS: oxyCODONE/ACETAMINOPHEN 5-325 MG TABLET PO PRN ×4 (04:24→21:46)
[2017-03-01 04:32] LABS: Band Neutrophils 2 % (0-10); Lymphocytes 1 % (20-55); Myelocytes 1 %; Segmented Neutrophils 92 % (50-85)
[2017-03-01 04:33] LABS: Platelet Estimate Normal; Total Cells Counted 100
[2017-03-01 04:40] LABS: Magnesium 2.3 MG/DL (1.8-2.4); Osmolality,Calculated 276.8 MOS/KG (273-304); Potassium 4.2 MMOL/L (3.5-5.1)
[2017-03-01] MEDS: LEVOTHYROXINE 100 MCG TABLET PO SCH (06:10)
--- NOTE | 2017-03-01 06:23 | Pain Management Progress Note ---
Assessment and Plan (1) Intractable back pain Status: Chronic Assessment and plan: I have reviewed the CT scan lumbar spine with no acute changes and will obtain a CT scan of thoracic spine to rule out acute fracture I will also add a 12 mcg an hour Duragesic patch 02/21 continue current medications for pain 02/22 I am writing his prescription for Duragesic patch and make him follow-up on with me in pain clinic in 1 month 02/23 I agree with possible transfer to [facility] if approved 02/24 continue current plan of care for now as far as pain management is concerned 02/26 I am increasing the Duragesic patch of 25 mcg an hour and replacing the [place] with Percocet 10 which may work better 02/27 continue current medications for pain control 03/01 stable for discharge from pain standpoint Current Visit: Yes Pain - Subjective Interval history: Patient is feeling much better and is likely being transferred out of acute care soon Exam - Constitutional Vitals: Period Temp Pulse Resp BP Sys/Ivey Pulse Ox Last 24 Hr 96.1 F-98.6 F 58-89 16-20 134-185/70-89 94-99 General appearance: no acute distress - Head Head exam: Present: normal inspection - Eye Eye exam: Present: EOMI Pupils: Present: SAMSON - ENT ENT exam: Present: normal exam Ear exam: Present: intact Mouth exam: Present: normal external inspection - Neck Neck exam: Present: tenderness - Respiratory Respiratory exam: Present: chest wall tenderness, decreased breath sounds - Cardiovascular Cardiovascular exam: Present: RRR - GI/Abdominal GI/Abdominal exam: Present: distended - Extremities Exam Extremities exam: Present: normal inspection - Back Exam Back exam: Present: vertebral tenderness - Neurological Exam Neurological exam: Present: abnormal gait - Skin Skin exam: Present: normal color Results - Labs CBC & BMP: 03/01/17 03:15 03/01/17 03:15 Lab Results: I have reviewed the past 24 hour labs Quality Measures - VTE Contraindication to Pharmacological VTE Prophylaxis: High Risk of Bleeding Specialty Discharge - Follow Up or Referrals Follow up with: Ciera Hoskins MD [Physician] - 03/24/17 8:30 am (PLEASE BRING ALL CURRENT MEDICATIONS AND INSURANCE CARDS TO THIS APPOINMENT. [phone])
--- NOTE | 2017-03-01 07:44 | EKG Report ---
Stationary ECG Study [facility] Test Date: 03/01/2017 7:45:51 AM Pat Name: BREANN KELLEY Department: Room: 295 Gender: M Dormitory Maid: : 1950 Requested by: Brennan Palomo Order Number: [id number] Reading MD: ESTEBAN RAHMAN Intervals [place] Rate: 64 P: 102 TX: 218 QRS: 67 QRSD: 93 T: 63 QT: 393 QTc: 403 Interpretive Statements ELECTRONIC ATRIAL PACEMAKER LOW QRS VOLTAGE IN PRECORDIAL LEADS Electronically Signed On 03-01-17 08:19:12 CDT by ESTEBAN RAHMAN [email or web address]
[2017-03-01] MEDS: POTASSIUM CHLORIDE 20 MEQ/15 ML UDCUP PO SCH ×2 (09:31→20:30)
[2017-03-01] MEDS: amLODIPine 10 MG TABLET PO SCH (09:32)
[2017-03-01] MEDS: MULTIVITAMIN (CENTRUM) TABLET PO SCH (09:32)
[2017-03-01] MEDS: traZODone 50 MG TABLET PO SCH ×2 (09:32→20:30)
[2017-03-01] MEDS: THIAMINE 100 MG TABLET PO SCH (09:32)
[2017-03-01] MEDS: DEXAMETHASONE 4 MG TABLET PO SCH ×3 (09:32→20:30)
[2017-03-01] MEDS: miSOPROStol 200 MCG TABLET PO SCH (09:32)
[2017-03-01] MEDS: FOLIC ACID 1 MG TABLET PO SCH (09:32)
[2017-03-01] MEDS: CLORAZEPATE 7.5 MG TABLET PO SCH ×3 (09:32→20:30)
[2017-03-01] MEDS: GABAPENTIN 100 MG CAPSULE PO SCH ×3 (09:32→20:30)
[2017-03-01] MEDS: BISOPROLOL 5 MG TABLET PO SCH (09:32)
[2017-03-01] MEDS: PANTOPRAZOLE 40 MG TABLET PO SCH (09:32)
[2017-03-01] MEDS: FUROSEMIDE 20 MG TABLET PO SCH ×2 (09:33→15:44)
[2017-03-01] MEDS: IMIPRAMINE 25 MG TABLET PO SCH (09:49)
--- NOTE | 2017-03-01 09:56 | XRay Report ---
Portable chest. Indication: Chest pain. Comparison: February 28, 2017. The heart is enlarged. The pulmonary vasculature is prominent. There are bilateral basilar infiltrates, significantly worse on the left. There are bilateral, left greater than right pleural effusions. Cardiac hardware appears to be in satisfactory position. There is been a previous vertebroplasty. Impression: No significant interval change is seen. PROCEDURE INTERPRETED AT [facility] DEPARTMENT OF RADIOLOGY Final Report Signed by: Dr. Nataliia Barth
[2017-03-01] MEDS: fentaNYL 25 MCG/HR PATCH TRANSDERM SCH (10:20)
[2017-03-01] MEDS: ATROPINE 1 % OPH SOLN 5 ML BOTTLE BOTH EYES SCH ×3 (10:21→20:36)
[2017-03-01] MEDS: prednisoLONE ACETATE 1% OPH SUSP 5 ML BOTTLE BOTH EYES SCH ×4 (10:23→20:36)
[2017-03-01] MEDS: LIDOCAINE 5% PATCH TRANSDERM SCH (10:23)
--- NOTE | 2017-03-01 10:42 | Pulmonology Progress Note ---
Pulmonary - PN: Subj Interval history: Is a 66-year-old white male. I saw him in consultation on 02/20/2017. At that time I thought the patient was an inpatient. He needs to be an inpatient. He is sick and immobile and has a good bit of pain. He has several severe illnesses. He is requiring multiple IV medicines for treatment and control of his symptoms. Hopefully he will be a candidate for rehab down the road. My impressions were. 1. Ankylosing spondylitis. Probable spinal stenosis 2. Past history of T9 compression fracture requiring kyphoplasty October 2013 3. Acute fall resulting in severe low back pain with immobility. Look for compression fracture 4. Peripheral sensory neuropathy. Symptoms have gradually worsened 5. Chronic venous stasis of the lower extremities 6. Vitamin B12 deficiency. On replacement. 7. Past history tobacco abuse 8. COPD/asthma 8. Past history of high blood pressure 9. Hypothyroidism 10. Hyperlipidemia 11. Past history of prostate cancer. Resected without recurrence. 12. See past 02/21/2017. See my note above concerning inpatient status. This patient has multiple illnesses. He is immobile secondary to pain and his illnesses. He is requiring multiple IV medicines for control of his symptoms. He needs to be made an inpatient and hopefully he will qualify for rehab or something else that will help him recover. The present time he is on IV Robaxin, IV Toradol, IV Decadron, IV morphine and a fentanyl patch. He says some dysuria but his urinalysis shows no evidence of infection. A neurology consultation is pending. Patient has a peripheral neuropathy. He has had a history of B12 deficiency and takes shots for this. He also has had a history strongly suggestive of spinal stenosis in the past. He has underlying ankylosing spondylitis. In the distant past there was a question of multiple sclerosis. 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 This best I can tell he does not have any symptoms of multiple sclerosis. I appreciate the consult from Dr. Hoskins. 02/22/2017. Patient's back pain is a little better. I think he is going to need rehabilitation. He notes that IV Robaxin is very helpful. He is on 500 IV piggyback every 8 hours. I think when he is converted he will probably need 1500 mg p.o. every 8 hours. Decadron seems to be working well for him. Dr. Yony Thacker neurological workup is underway. I appreciate Dr. Hoskins's help. I made no changes in the patient's regimen today. 02/24/2016. This patient continues to have severe back pain. This is almost impossible turning because of the pain. This tends a localized in the thoracolumbar area and the patient says he feels it on both sides he says it "radiates to my kidney area and to my sacroiliac area" bilateral. At the present time this patient is not able to take care of himself. I wonder if Dr. Hoskins could inject him and help with the severity of his symptoms. Dr. Yony Thacker workup of the patient's peripheral neuropathy is underway but the patient has not been able to undergo some of the test because of severe back pain. 02/24/2017. This patient is immobilized by back pain. Is not much I can do. I have increased his Robaxin-750 IV piggyback every 8 hours. He is asked for restarting of his Tranxene and I have ordered this was 7.5 3 times daily. We have also placed a lidocaine patch over his back. Patient's on IV Toradol and IV Decadron. He has underlying ankylosing spondylitis. I wonder if he will require injections in order to control his pain enough that we can get him up. Dr. Beatty is evaluated his lower extremity pain and has noted that this is a sensory neuropathy.. 02/27/2017. I have reviewed Dr. Mo Issa's cardiology consultation. Patient has a A-V dissociation and third-degree block at times. This results in significant bradycardia. At the Luis Manuel is evaluating for cardiac pacemaker and I agree with this. In the meantime the patient says his back pain is more tolerable. Electrolytes are normal. Creatinine is 0.6 with a BUN of 21. CBC is stable. There are no positive cultures. Patient was seen along with his . Tuan Philip nurse practitioner was also present 02/28/2017. Patient's for cardiac pacemaker today. His pain seems to be under better control. I discussed the case with anesthesiology. Patient's was present. CBC and BMP are normal. Labs been reviewed. Medicines have been reviewed. Patient stable from a pulmonary standpoint. 03/01/2017. 2-lead cardiac pacer was placed on 02/28/2017. Patient has good capture normal function at this time. His chest x-ray shows old pleural scar at the left costophrenic angle. He has pleural fluid on the right. He appears to be slightly volume overloaded. I have ordered a BNP. Electrolytes are normal. Creatinine is 0.5. BUNs 20. CBC is normal. When this patient goes home he will need to continue his home medicines. Robaxin works well for him and I think we should increase this to 1500 mg 4 times a day as needed. He is on Decadron 4 mg 3 times daily and I think this should be decreased to 4 mg daily for 5 doses and then 4 mg every other day for 5 doses and then 2 mg every other day for 5 doses and then stop it. Dr. Hoskins is added several pain medicines to his regimen and I am also agreeable with this. Physical exam. Vital signs. See below Psychiatric. Oriented 3. Neurologic. Cranial nerves are intact. Iritis appears to be resolving. Some decreased hearing acuity bilaterally. Patient can move all 4 extremities. He complains of decreased sensation over his lower extremities. He has significant thoracic and lumbar back pain Lower extremities. Chronic venous stasis changes of the skin. Underlying edema is improved with bed rest. Neck. Symmetrical. No meningismus. Lymphatics. No submandibular cervical supraclavicular or epitrochlear adenopathy Chest. Symmetrical. Pectus excavatum. No chest wall tenderness. Breath sounds are clear Heart. No gallop Abdomen. Lax abdominal musculature. Positive bowel sounds. The remainder the physical exam is noncontributory Plan. 02/20/2017 1. Bone scan 2. Neurology consult per Govind concerning peripheral neuropathy 3. IV push Decadron 4. IV Robaxin 5. IV Toradol 6. Cytotec. 7. Watch for constipation 8. Have reviewed and reconciled his home medicines 9. See orders 02/21/2017. 1. See today's note above. 02/22/2017. 1. See today's note above. 2. This patient could benefit from rehab. 02/23/2017. 1. See today's note above 2. Immobilized secondary to severe back 02/24/2017. 1. See today's note above. 2. This patient is completely immobilized secondary to severe back pain. He cannot even turn over in bed. 02/27/2017. 1. AV dissociation with third-degree block and bradycardia. Agree with pacemaker. 2. See my note 02/28/2017. 1. See my note above. 2. Pacemaker placement today 03/01/2017. 1. See today's note above concerning suggested home medicines per 2. Chest x-ray the patient is slightly volume overloaded I think. We will draw stat BNP for confirmation. Exam (Progress Note) - Constitutional Vitals: Period Temp Pulse Resp BP Sys/Ivey Pulse Ox Last 24 Hr 96.1 F-98.6 F 58-86 16-20 134-185/70-89 94-99 Results - Labs CBC & BMP: 03/01/17 03:15 03/01/17 03:15 Specialty Discharge - Follow Up or Referrals Follow up with: Ciera Hoskins MD [Physician] - 03/24/17 8:30 am (PLEASE BRING ALL CURRENT MEDICATIONS AND INSURANCE CARDS TO THIS APPOINMENT. [phone])
--- NOTE | 2017-03-01 10:59 | Cardiology Progress Note ---
Assessment and Plan (1) High-grade atrioventricular block Status: Acute Assessment and plan: Patient is post pacemaker implantation left chest doing well. Current Visit: Yes (2) Intractable back pain Status: Chronic Assessment and plan: Related to recent fall and history of ankylosing spondylosis. This is followed by chronic pain clinic. Current Visit: Yes (3) Ankylosing spondylitis Status: Chronic Assessment and plan: Chronic. Current Visit: No (4) COPD (chronic obstructive pulmonary disease) Status: Chronic Assessment and plan: Appears to be stable at this time. Current Visit: No (5) Chronic back pain Status: Chronic Assessment and plan: He is managed by pain management. Likely secondary to his ankylosing spondylitis. Current Visit: No Qualifiers: Back pain location: low back pain Cardiology - PN: Subj Interval history: Patient is doing well today. He has had some soreness in his pacemaker site but otherwise stable. Denies any increased shortness of breath or other issues. His telemetry was sinus rhythm. His ECG with atrial pacing. He has intraventricular conduction. Pacemaker interrogation reveals the device is functioning appropriately. Chest x-ray would leads in good position without postop complications. Exam (Progress Note) - Constitutional Vitals: Period Temp Pulse Resp BP Sys/Ivey Pulse Ox Last 24 Hr 96.1 F-98.6 F 58-86 16-20 134-185/70-89 94-99 Exam: General appearance: no acute distress, awake and alert lying in bed. HEENT exam: normal inspection, atraumatic Neck exam: Neck is rigid. Normal inspection no JVD. No carotid bruit. Trachea is in midline Respiratory/lungs exam: clear to auscultation anteriorly and bilaterally, his air movement is decreased secondary to his chronic musculoskeletal and spinal issues.. Cardiovascular exam: regular rate and rhythm, no murmur or gallop or rub. No precordial lift. Chest wall exam: Left upper chest pacemaker site looks good. GI/Abdominal exam: Protuberant with normal bowel sounds, soft, nontender. Extremeties/musculoskeletal: His lower legs and feet are cool and somewhat erythematous. Neurological exam: alert, oriented X3, no focal deficits Psychiatric exam: normal affect, normal mood. Cognitive function is grossly normal. Skin exam: Some nonspecific erythema of the lower legs and feet. Feet are cool to touch. Result/EKG - Labs CBC & BMP: 03/01/17 03:15 03/01/17 03:15 Lab Results: I have reviewed the past 24 hour labs Labs: Laboratory Results - last 24 hr 03/01/17 03/01/17 03:15 03:15 WBC 14.0 H RBC 4.13 Hgb 13.8 L Hct 39.7 L MCV 96.1 MCH 33 MCHC 34.8 RDW 12.5 Plt Count 223 MPV 11.4 Neut % (Auto) 86.4 H Lymph % (Auto) 2.1 L [place] % (Auto) 9.7 Eos % (Auto) 0.1 Baso % (Auto) 0.2 Neut # (Auto) 12.1 H Lymph # (Auto) 0.3 L [place] # (Auto) 1.4 H Eos # (Auto) 0.0 Baso # (Auto) 0.0 Total Counted 100 Immature Gran % 1.5 Nucleated RBC % 0.0 Immature Gran # 0.21 Segmented Neutrophils 92 H Band Neutrophils 2 Lymphocytes 1 L Monocytes 4 Myelocytes 1 Nucleated RBCs # 0.00 Platelet Estimate Normal Sodium 137 Potassium 4.2 Chloride 97 L Carbon Dioxide 33 H Anion Gap 11.2 BUN 20 H Creatinine 0.50 L GFR Calculation 165 BUN/Creatinine Ratio 40.00 H Glucose 116 H Calculated Osmolality 276.8 Calcium 9.0 Magnesium 2.3 - Impressions Impressions: ECG with electronic atrial pacing and AV conduction. Acute changes. Telemetry with sinus rhythm and AV conduction. Quality Measures - VTE Contraindication to Pharmacological VTE Prophylaxis: High Risk of Bleeding Specialty Discharge - Follow Up or Referrals Follow up with: Ciera Hoskins MD [Physician] - 03/24/17 8:30 am (PLEASE BRING ALL CURRENT MEDICATIONS AND INSURANCE CARDS TO THIS APPOINMENT. [phone])
[2017-03-01] MEDS: THEOPHYLLINE ER 300 MG TABLET PO SCH ×2 (11:18→23:26)
[2017-03-01] MEDS ORDERED: COLLAGENASE OINT 30 GM TUBE TOP SCH (14:00)
--- NOTE | 2017-03-01 14:01 | Hospitalist Progress Note ---
Assessment and Plan - Time spent with patient Time spent with patient: Less than 30 minutes (1) Status post biventricular pacemaker Status: Acute Assessment and plan: Mr. Ugalde is a 66-year-old white male with multiple medical problems admitted by the hospitalist on 02/19/17 with intractable back pain due to ankylosing spondylitis and peripheral neuropathy. He was also found to have a high-grade AV block and dual-chamber pacemaker was placed yesterday, 02/28/[address] Ramírez from pulmonary is also following along with Dr. Hoskins from pain management. Patient is awaiting placement for swing bed versus rehab when okayed by cardiology and pulmonary. Dr. Sherman to see and examined patient and further recommendations to follow. Current Visit: Yes (2) Peripheral neuropathy Status: Acute Current Visit: Yes (3) Chronic venous insufficiency Status: Acute Current Visit: Yes (4) Hypothyroidism Status: Acute Current Visit: Yes (5) Hyperlipidemia Status: Acute Current Visit: Yes (6) Chronic back pain Status: Chronic Current Visit: No Qualifiers: Back pain location: low back pain (7) Ankylosing spondylitis Status: Chronic Current Visit: No Qualifiers: Ankylosing spondylitis location: multiple sites in spine Qualified Code(s) : M45.0 - Ankylosing spondylitis of multiple sites in spine (8) COPD (chronic obstructive pulmonary disease) Status: Chronic Current Visit: No (9) Intractable back pain Status: Chronic Current Visit: Yes Hospitalist: Subjective Interval history: Patient is complaining of some lower back pain. States he is not having any discomfort from pacemaker placement. No complaints of chest pain or shortness of breath. He is awaiting swing bed versus rehab placement. He is requesting a bed that he can adjust himself. Exam - Constitutional Vitals: Period Temp Pulse Resp BP Sys/Ivey Pulse Ox Last 24 Hr 96.1 F-98.6 F 58-86 16-20 134-185/70-89 94-99 Exam: 66-year-old white male, no acute distress, alert and oriented Chest clear CV regular rate and rhythm, incision without signs of infection Abdomen protuberant, nontender Extremities with moderate pedal edema Results - Labs CBC & BMP: 03/01/17 03:15 03/01/17 03:15 Lab Results: I have reviewed the past 24 hour labs - EKG EKG results: sinus rhythm - Diagnostic Findings Procedure: Chest x-ray: report reviewed by me (Heart is enlarged. Bilateral basilar infiltrates worse on the left. Bilateral pleural effusions worse on the left. Cardiac hardware in satisfactory position.) Quality Measures - VTE Contraindication to Pharmacological VTE Prophylaxis: High Risk of Bleeding Specialty Discharge - Follow Up or Referrals Follow up with: Ciera Hoskins MD [Physician] - 03/24/17 8:30 am (PLEASE BRING ALL CURRENT MEDICATIONS AND INSURANCE CARDS TO THIS APPOINMENT. [phone])
[2017-03-01] MEDS: ENOXAPARIN 40 MG/0.4 ML SYRINGE SUBCUT SCH (14:56)
[2017-03-01] MEDS: DESITIN 4OZ/NYSTATIN 15 GRAM MIXTURE PASTE TOP SCH ×2 (15:43→20:36)
[2017-03-02] MEDS: oxyCODONE/ACETAMINOPHEN 5-325 MG TABLET PO PRN ×2 (01:16→09:31)
[2017-03-02] MEDS: METHOCARBAMOL INJ 750 MG in SODIUM CHLORIDE 0.9% 100 ML IV SCH (04:08)
[2017-03-02] MEDS: LEVOTHYROXINE 100 MCG TABLET PO SCH (06:43)
--- NOTE | 2017-03-02 09:20 | Discharge Summary ---
<Donna Sherman - Last Filed: 03/02/17 09:09> Hospital Course - Hospital Course Hospital Course: Mr. Fischer is a 66-year-old white male with history of intractable chronic back pain due to ankylosing spondylitis, peripheral neuropathy, hypothyroidism, hyperlipidemia, chronic venous insufficiency, and COPD admitted by the hospitalist on 02/19/2017 with intractable back pain due to ankylosing spondylosis and his peripheral neuropathy. He was also found to have a high- grade AV block and dual-chamber pacemaker was placed by Dr. Clemens from cardiology on 02/28/2017. Dr. Ramírez from pulmonary and Dr. Hoskins from pain management also helped with his care. Patient has a lot of pain when he participates in therapy so he is being transferred to [facility] for further rehab today. We will continue his current medicines as he has in this hospital stay. Patient's care was coordinated with Dr. Sherman the hospitalist , cardiology, pulmonary, pain management, case management, patient family and nursing. Care coordination, chart review, and discharge paperwork all took approximately 40 minutes. Specialty Discharge - Follow Up or Referrals Follow up with: Ciera Hoskins MD [Physician] - 03/24/17 8:30 am (PLEASE BRING ALL CURRENT MEDICATIONS AND INSURANCE CARDS TO THIS APPOINMENT. [phone]) Brennan Clemens MD [Physician] - 2 Weeks (2 weeks of pacemaker check.) Discharge Plan - Discharge Data Disposition: Swing Bed, [facility], [facility] - Discharge Medications New Methocarbamol Tab [Robaxin Tab] 750 mg PO QID PRN #20 tablet PRN Reason: Muscle Pain amLODIPine [Norvasc] 10 mg PO DAILY tablet Clorazepate [Tranxene] 7.5 mg PO TID tablet Collagenase Oint [Santyl Oint] 1 applic TOP DAILY applic Dexamethasone Tab [Decadron Tab] 4 mg PO DAILY #10 tablet Folic Acid Tab 1 mg PO DAILY tablet Lidocaine 5% Patch [Lidoderm 5% Patch] 1 patch TRANSDERM DAILY patch miSOPROStol [Cytotec] 200 mcg PO DAILY tablet oxyCODONE/ACETAMINOPHEN 5-325 [Percocet 5-325] 2 tablet PO Q4H PRN tablet PRN Reason: Pain Moderate (4-7) Thiamine Tab [Vitamin B1 Tab] 100 mg PO DAILY tablet Bisoprolol [Zebeta] 5 mg PO DAILY tablet fentaNYL 25 MCG/HR PATCH [Duragesic 25 Patch] 1 patch TRANSDERM Q3DAY patch Gabapentin Cap/Tab [Neurontin Cap/Tab] 100 mg PO TID capsule Multivitamin (Centrum) [Centrum Tab] 1 tablet PO DAILY tablet Continue traZODone [Desyrel] 100 mg PO BID Furosemide Tab [Lasix Tab] 40 mg PO BID DIURETIC Imipramine HCl 25 mg PO DAILY Potassium Chloride Liquid 20 meq PO BID Levothyroxine Tab [Synthroid Tab] 100 mcg PO DAILY@0700 Atropine Sulfate [Atropine 1% Oph Soln] 1 drop BOTH EYES TID Theophylline ER Tab 300 mg PO Q12H prednisoLONE AC 1% OPH SUSP [Pred Forte] 1 drop BOTH EYES QID - Follow Up or Referral Follow Up: Ciera Hoskins MD [Physician] - 03/24/17 8:30 am (PLEASE BRING ALL CURRENT MEDICATIONS AND INSURANCE CARDS TO THIS APPOINMENT. [phone]) Brennan Clemens MD [Physician] - 2 Weeks (2 weeks of pacemaker check.) - Forms/Instructions Instructions: Fall Prevention for Older Adults (ED), Contusion in Adults (ED) Exam - Constitutional Vitals: Period Temp Pulse Resp BP Sys/Ivey Pulse Ox Last 24 Hr 96.1 F-97.7 F 60-82 16-20 119-149/62-84 95-98 Discharge Results Labs on day of discharge: Labs from last 24 hours 03/01/17 03:12 B-Natriuretic Peptide 11 DS: Provider Date of admission: 02/21/17 09:16 Primary care physician: Bala Ramírez MD Attending physician on admission: Brennan Donald MD Consults: 02/19/17 23:33 Consult to Physician [CONS] Routine Comment: patient of yours requesting you Consulting Provider: Bala Ramírez Person Notified: BECKI Date Notified: 02/20/17 Time Notified: 07:36 02/20/17 01:26 Consult to Physician [CONS] Routine Comment: Consulting Provider: Ciera Hoskins 02/20/17 03:42 Consult to Pastoral Services [CONS] Routine Comment: Pastoral Screen: Request [employer] Visit Pastoral Screen Source of Request: Other Other Source Requesting: Nursing 02/20/17 10:30 Consult to Physician [CONS] Routine Comment: Ankylosing spondylitis; mabel. lower ext. numbness Consulting Provider: Shahzad Thacker Person Notified: BOBBY Date Notified: 02/20/17 Time Notified: 10:52 02/20/17 13:28 Consult to Occupational Therapy [CONS] Routine Reason for Occupational Therapy: Weakness Consult to Physical Therapy [CONS] Routine Reason for Physical Therapy: Weakness 02/20/17 19:53 Consult to Case Mgmt/Social Srvs [CONS] Routine Reason for Case Mgmt/Social Srvs: Discharge Planning 02/25/17 11:04 Consult to Physician [CONS] Routine Comment: Consulting Provider: Consult to Specialist Group: Cardiology When should Consulting Provider be notified: Now Person Notified: Natividad James Date Notified: 02/25/17 Time Notified: 11:10 02/28/17 06:36 Consult to Physician [CONS] Routine Comment: For sedation during pacemaker. Severe spinal issue Consulting Provider: [facility] Consulting Provider Notified: No When should Consulting Provider be notified: Now Discharging clinician: Donna Sherman MD <Shabnam Merchant - Last Filed: 03/02/17 10:06> Hospital Course - Time spent with patient Time with patient DS: Greater than 30 minutes Diagnosis - Discharge Diagnosis (1) Status post biventricular pacemaker Status: Chronic (2) Peripheral neuropathy Status: Chronic (3) Chronic venous insufficiency Status: Chronic (4) Hypothyroidism Status: Chronic (5) Hyperlipidemia Status: Chronic (6) Chronic back pain Status: Chronic (7) Ankylosing spondylitis Status: Chronic (8) COPD (chronic obstructive pulmonary disease) Status: Chronic (9) Intractable back pain Status: Chronic Discharge Plan - Discharge Data Condition at Discharge: Stable Discharge Diet: advance to your usual diet Activity: resume usual activities as tolerated Hygiene: may shower Contact your physician if you experience:: fever over 101, Redness or swelling, Shortness of breath, pain uncontrolled by pain medications Exam - Constitutional Exam: 66-year-old white male, no acute distress, alert and oriented Chest clear CV regular rate and rhythm, well-healing left chest incision Abdomen protuberant and nontender Extremities with +1 edema DS: Provider Expected date of discharge: 03/02/17
[2017-03-02] MEDS: PANTOPRAZOLE 40 MG TABLET PO SCH (09:30)
[2017-03-02] MEDS: traZODone 50 MG TABLET PO SCH (09:30)
[2017-03-02] MEDS: DEXAMETHASONE 4 MG TABLET PO SCH (09:30)
[2017-03-02] MEDS: FUROSEMIDE 20 MG TABLET PO SCH (09:30)
[2017-03-02] MEDS: CLORAZEPATE 7.5 MG TABLET PO SCH (09:30)
[2017-03-02] MEDS: THIAMINE 100 MG TABLET PO SCH (09:30)
[2017-03-02] MEDS: IMIPRAMINE 25 MG TABLET PO SCH (09:30)
[2017-03-02] MEDS: GABAPENTIN 100 MG CAPSULE PO SCH (09:30)
[2017-03-02] MEDS: miSOPROStol 200 MCG TABLET PO SCH (09:31)
[2017-03-02] MEDS: amLODIPine 10 MG TABLET PO SCH (09:31)
[2017-03-02] MEDS: POTASSIUM CHLORIDE 20 MEQ/15 ML UDCUP PO SCH (09:31)
[2017-03-02] MEDS: FOLIC ACID 1 MG TABLET PO SCH (09:31)
[2017-03-02] MEDS: BISOPROLOL 5 MG TABLET PO SCH (09:31)
[2017-03-02] MEDS: MULTIVITAMIN (CENTRUM) TABLET PO SCH (09:31)
[2017-03-02] MEDS: prednisoLONE ACETATE 1% OPH SUSP 5 ML BOTTLE BOTH EYES SCH (09:51)
[2017-03-02] MEDS: ATROPINE 1 % OPH SOLN 5 ML BOTTLE BOTH EYES SCH (09:51)
[2017-03-02] MEDS: LIDOCAINE 5% PATCH TRANSDERM SCH (09:51)
--- NOTE | 2017-03-02 09:53 | Cardiology Progress Note ---
Jose Houston Vanessa, RN, am scribing for, and in the presence of, Brennan Clemens MD 09:19. Assessment and Plan - Time spent with patient Time spent with patient: Greater than 30 minutes (1) High-grade atrioventricular block Status: Acute Assessment and plan: Now status post dual chamber pacemaker implant, and device is functioning appropriately. Pacemaker site is healing appropriately. This will manage his high-grade AV block. Current Visit: Yes (2) Intractable back pain Status: Chronic Assessment and plan: Related to recent fall and history of ankylosing spondylosis. He has chronic pain, and his pain medications are being managed by Dr. Hoskins. Current Visit: Yes (3) Ankylosing spondylitis Status: Chronic Assessment and plan: Chronic. Current Visit: No (4) COPD (chronic obstructive pulmonary disease) Status: Chronic Assessment and plan: Appears to be stable at this time. Current Visit: No (5) Chronic back pain Status: Chronic Assessment and plan: He is managed by pain management. Back pain is most likely secondary to ankylosing spondylitis. Current Visit: No Qualifiers: Back pain location: low back pain (6) Cardiac pacemaker in situ Status: Acute Assessment and plan: This was placed 2 days ago and is doing well. We will continue to monitor the patient's an outpatient. Current Visit: Yes Cardiology - PN: Subj Interval history: PRIMARY BINDERY PRODUCTION MANAGER: DR. PASCUAL SUMMARY: Mr. Fischer is a 63-year-old white male with risk factors significant for: Age, obesity, sedentary lifestyle, hypertension, family history of CAD, and former tobacco use. Past medical history includes ankylosing spondylitis, COPD, pulmonary hypertension, prostate cancer, anxiety/depression, and chronic back pain. Patient has had a previous complete fusion of the cervical, thoracic, and lumbar spine due to ankylosing spondylitis which makes it nearly impossible for him to lie flat. He was admitted with intractable back pain on February 19. He is also being seen by Dr. Hoskins for pain management, and he is being seen by pulmonary as his ankylosing spondylitis has caused breathing difficulty, and he has also had some issues with bronchospastic airway. Echocardiogram on February 25 with mild LVH, diastolic dysfunction, and ejection fraction 50-55%, moderate TR with PA pressure 43 mmHg, and mild MR and AVR with no significant valvular abnormalities. Cardiac monitoring noted him to have episodes of bradycardia with AV dissociation, evidence of third degree AV block. He had no chest pain, presyncope, or syncope. Status post dual chamber pacemaker implant on February 28. February UPDATE: Mr. Fischer is resting comfortably this morning. He is post op day #2 status post pacemaker implant. Pacemaker site continues to heal well with minimal bruising and no hematoma. Pulses present, palpable. Patient has had no chest pain, and shortness of breath is stable without acute complaint. Sinus rhythm with occasional PAC and atrial pacing. No ectopy or dysrhythmia. Vitals stable with BP 139/78. WBC slight elevation 14,000. H/H stable. Electrolytes and renal function are within acceptable range. From a cardiac standpoint, he is stable for discharge to half-way facility for further rehabilitation and therapy. He will need to follow up at [facility] in 2 weeks for wound and device check. Patient's pacemaker site looks good. His little ecchymotic with a little fluctuance consistent with a little hematoma or fluid accumulation. Exam (Progress Note) - Constitutional Vitals: Period Temp Pulse Resp BP Sys/Ivey Pulse Ox Last 24 Hr 96.1 F-97.7 F 60-82 16-20 119-149/62-84 95-98 Exam: General appearance: no acute distress, awake and alert lying in bed. HEENT exam: normal inspection, atraumatic Neck exam: Neck is rigid. Normal inspection no JVD. No carotid bruit. Trachea is in midline Respiratory/lungs exam: clear to auscultation anteriorly and bilaterally, his air movement is decreased secondary to his chronic musculoskeletal and spinal issues.. Cardiovascular exam: regular rate and rhythm, no murmur or gallop or rub. No precordial lift. Chest wall exam: Left upper chest pacemaker site looks good, incision intact, mild bruising, with some probably intra-pocket fluid. GI/Abdominal exam: Protuberant with normal bowel sounds, soft, nontender. Extremeties/musculoskeletal: His lower legs and feet are cool with some warmth to right lower extremity and somewhat erythematous. Neurological exam: alert, oriented X3, no focal deficits Psychiatric exam: normal affect, normal mood. Cognitive function is grossly normal. Skin exam: Some nonspecific erythema of the lower legs and feet. Left lower extremity is cool to touch, right lower extremity slightly warm to touch Result/EKG - Labs CBC & BMP: 03/01/17 03:15 03/01/17 03:15 Lab Results: I have reviewed the past 24 hour labs Labs: Laboratory Results - last 24 hr 03/01/17 03:12 B-Natriuretic Peptide 11 - Impressions Impressions: Telemetry was sinus rhythm with some PACs. At times she has atrial ventricular pacing. - Diagnostic Findings Procedure: Chest x-ray: image reviewed by me, report reviewed by me - EKG EKG results: interpreted by me EKG shows: sinus rhythm (occ PAC; intermittent atrial pacing) Quality Measures - VTE Contraindication to Pharmacological VTE Prophylaxis: High Risk of Bleeding Specialty Discharge - Follow Up or Referrals Follow up with: Ciera Hoskins MD [Physician] - 03/24/17 8:30 am (PLEASE BRING ALL CURRENT MEDICATIONS AND INSURANCE CARDS TO THIS APPOINMENT. [phone]) Brennan Clemens MD [Physician] - 2 Weeks (2 weeks of pacemaker check.) I, Brennan Clemens MD, personally performed the services described in this documentation, ascribed by Jojo Garcia RN in my presence, and it is both accurate and complete [id number] .
--- NOTE | 2017-03-02 10:49 | Pulmonology Progress Note ---
Pulmonary - PN: Subj Interval history: Is a 66-year-old white male. I saw him in consultation on 02/20/2017. At that time I thought the patient was an inpatient. He needs to be an inpatient. He is sick and immobile and has a good bit of pain. He has several severe illnesses. He is requiring multiple IV medicines for treatment and control of his symptoms. Hopefully he will be a candidate for rehab down the road. My impressions were. 1. Ankylosing spondylitis. Probable spinal stenosis 2. Past history of T9 compression fracture requiring kyphoplasty October 2013 3. Acute fall resulting in severe low back pain with immobility. Look for compression fracture 4. Peripheral sensory neuropathy. Symptoms have gradually worsened 5. Chronic venous stasis of the lower extremities 6. Vitamin B12 deficiency. On replacement. 7. Past history tobacco abuse 8. COPD/asthma 8. Past history of high blood pressure 9. Hypothyroidism 10. Hyperlipidemia 11. Past history of prostate cancer. Resected without recurrence. 12. See past 02/21/2017. See my note above concerning inpatient status. This patient has multiple illnesses. He is immobile secondary to pain and his illnesses. He is requiring multiple IV medicines for control of his symptoms. He needs to be made an inpatient and hopefully he will qualify for rehab or something else that will help him recover. The present time he is on IV Robaxin, IV Toradol, IV Decadron, IV morphine and a fentanyl patch. He says some dysuria but his urinalysis shows no evidence of infection. A neurology consultation is pending. Patient has a peripheral neuropathy. He has had a history of B12 deficiency and takes shots for this. He also has had a history strongly suggestive of spinal stenosis in the past. He has underlying ankylosing spondylitis. In the distant past there was a question of multiple sclerosis. This did not collar turner to be the case. This best I can tell he does not have any symptoms of multiple sclerosis. I appreciate the consult from Dr. Hoskins. 02/22/2017. Patient's back pain is a little better. I think he is going to need rehabilitation. He notes that IV Robaxin is very helpful. He is on 500 IV piggyback every 8 hours. I think when he is converted he will probably need 1500 mg p.o. every 8 hours. Decadron seems to be working well for him. Dr. Yony Thacker neurological workup is underway. I appreciate Dr. Hoskins's help. I made no changes in the patient's regimen today. 02/24/2016. This patient continues to have severe back pain. This is almost impossible turning because of the pain. This tends a localized in the thoracolumbar area and the patient says he feels it on both sides he says it "radiates to my kidney area and to my sacroiliac area" bilateral. At the present time this patient is not able to take care of himself. I wonder if Dr. Hoskins could inject him and help with the severity of his symptoms. Dr. Yony Thacker workup of the patient's peripheral neuropathy is underway but the patient has not been able to undergo some of the test because of severe back pain. 02/24/2017. This patient is immobilized by back pain. Is not much I can do. I have increased his Robaxin-750 IV piggyback every 8 hours. He is asked for restarting of his Tranxene and I have ordered this was 7.5 3 times daily. We have also placed a lidocaine patch over his back. Patient's on IV Toradol and IV Decadron. He has underlying ankylosing spondylitis. I wonder if he will require injections in order to control his pain enough that we can get him up. Dr. Beatty is evaluated his lower extremity pain and has noted that this is a sensory neuropathy.. 02/27/2017. I have reviewed Dr. Mo Issa's cardiology consultation. Patient has a A-V dissociation and third-degree block at times. This results in significant bradycardia. At the Luis Manuel is evaluating for cardiac pacemaker and I agree with this. In the meantime the patient says his back pain is more tolerable. Electrolytes are normal. Creatinine is 0.6 with a BUN of 21. CBC is stable. There are no positive cultures. Patient was seen along with his . Tuan Philip nurse practitioner was also present 02/28/2017. Patient's for cardiac pacemaker today. His pain seems to be under better control. I discussed the case with anesthesiology. Patient's was present. CBC and BMP are normal. Labs been reviewed. Medicines have been reviewed. Patient stable from a pulmonary standpoint. 03/01/2017. 2-lead cardiac pacer was placed on 02/28/2017. Patient has good capture normal function at this time. His chest x-ray shows old pleural scar at the left costophrenic angle. He has pleural fluid on the right. He appears to be slightly volume overloaded. I have ordered a BNP. Electrolytes are normal. Creatinine is 0.5. BUNs 20. CBC is normal. When this patient goes home he will need to continue his home medicines. Robaxin works well for him and I think we should increase this to 1500 mg 4 times a day as needed. He is on Decadron 4 mg 3 times daily and I think this should be decreased to 4 mg daily for 5 doses and then 4 mg every other day for 5 doses and then 2 mg every other day for 5 doses and then stop it. Dr. Hoskins is added several pain medicines to his regimen and I am also agreeable with this. 03/02/2017. Dr. Bernabe Clemens and I reviewed the patient's condition today in our care is coordinated. payroll services analyst is trying to place this patient in need to a swing bed, a rehab institution or long-term. This was discussed with the patient and his . Overall I think his pain is under better control. There were no new problems today. See my note from 03/01/2017 concerning what medicines I think this patient should go home on. Physical exam. Vital signs. See below Psychiatric. Oriented 3. Neurologic. Cranial nerves are intact. Iritis appears to be resolving. Some decreased hearing acuity bilaterally. Patient can move all 4 extremities. He complains of some burning of both feet Lower extremities. Chronic venous stasis changes of the skin. Underlying edema is improved with bed rest. Neck. Symmetrical. No meningismus. Lymphatics. No submandibular cervical supraclavicular or epitrochlear adenopathy Chest. Symmetrical. Pectus excavatum. No chest wall tenderness. Breath sounds are clear Heart. No gallop Abdomen. Lax abdominal musculature. Positive bowel sounds. The remainder the physical exam is noncontributory Plan. 02/20/2017 1. Bone scan 2. Neurology consult per Govind concerning peripheral neuropathy 3. IV push Decadron 4. IV Robaxin 5. IV Toradol 6. Cytotec. 7. Watch for constipation 8. Have reviewed and reconciled his home medicines 9. See orders 02/21/2017. 1. See today's note above. 02/22/2017. 1. See today's note above. 2. This patient could benefit from rehab. 02/23/2017. 1. See today's note above 2. Immobilized secondary to severe back 02/24/2017. 1. See today's note above. 2. This patient is completely immobilized secondary to severe back pain. He cannot even turn over in bed. 02/27/2017. 1. AV dissociation with third-degree block and bradycardia. Agree with pacemaker. 2. See my note 02/28/2017. 1. See my note above. 2. Pacemaker placement today 03/01/2017. 1. See today's note above concerning suggested home medicines per 2. Chest x-ray the patient is slightly volume overloaded I think. We will draw stat BNP for confirmation. 03/02/2017. 1. See my suggestions in my notes above from 03/01/2017 and from 03/02/2017 Exam (Progress Note) - Constitutional Vitals: Period Temp Pulse Resp BP Sys/Ivey Pulse Ox Last 24 Hr 96.1 F-97.7 F 60-82 16-20 119-149/62-84 95-98 Results - Labs CBC & BMP: 03/01/17 03:15 03/01/17 03:15 Specialty Discharge - Follow Up or Referrals Follow up with: Ciera Hoskins MD [Physician] - 03/24/17 8:30 am (PLEASE BRING ALL CURRENT MEDICATIONS AND INSURANCE CARDS TO THIS APPOINMENT. [phone]) Brennan Clemens MD [Physician] - 03/16/17 9:30 am (2 weeks of pacemaker check.)
[2017-03-02] MEDS: THEOPHYLLINE ER 300 MG TABLET PO SCH (12:17)
[2017-03-02 12:18] VITALS: BP 123/67
== END 2017-03-02 13:45 | disposition swing bed (61) | DRG 41 ==
LOC: EDUNIT# → EDBD → N.EDINP 20:19 → N.ED 20:19 → SUATTDRO 23:33 → N.2E 02-20 00:29 → SUATTDRO 02-21 09:16 → N.TELEN 02-28 14:07
PROVIDERS: ADMIT Internal Medicine; ATTEND Internal Medicine

== ENCOUNTER 2017-04-11 17:40 | Inpatient (IN) ==
[2017-04-11] MEDS ORDERED: NALOXONE 0.4 MG/ML VIAL IV STA ×2 (18:15→21:19)
[2017-04-11] MEDS ORDERED: NALOXONE 0.4 MG/ML VIAL ONE ×2 (18:19→21:22)
[2017-04-11 18:34] LABS: Basophils # 0.1 10*3/uL (0.0-0.2); Basophils % 0.6 % (0.0-0.8); Eosinophils # 0.1 10*3/uL (0.0-0.87); Eosinophils % 0.5 % (0.00-10.9); Hemoglobin 13.3 GM/DL (14.0-18.0); Immature Granulocytes % 1.2 %; Immature Granulocytes Absolute 0.14 #; Lymphocytes # 0.9 10*3/uL (1.4-4.0); Lymphocytes % 7.3 % (21.2-54.2); Mean Corpuscular HGB Conc 34.1 GM/DL (32-36); Mean Corpuscular Hemoglobin 34 PG (27-34); Mean Corpuscular Volume 99.2 FL (87-102); Monocytes # 1.4 10*3/uL (0.11-0.8); Monocytes % 11.5 % (1.7-12.7); Neutrophils # 9.3 10*3/uL (1.4-7.4); Neutrophils % 78.9 % (38.7-73.9); Platelet Count 239 T/CUMM (130-400); Red Blood Count 3.93 MC/CUMM (3.8-5.5); Red Cell Distribution Width 13.5 % (9.3-17.3); White Blood Count 11.7 T/CUMM (4-12)
[2017-04-11 18:39] LABS: Calcium 9.5 MG/DL (8.5-10.1); Magnesium 2.5 MG/DL (1.8-2.4); Osmolality,Calculated 282.5 MOS/KG (273-304); Potassium 4.3 MMOL/L (3.5-5.1)
--- NOTE | 2017-04-11 18:39 | XRay Report ---
Portable chest Date: 04/11/2017 Clinical history: Chest pain, shortness of breath Comparison: 03/01/2017 Technique: Portable AP sitting chest Findings: Motion artifact limits exam. The heart remains enlarged with left subclavian atrioventricular permanent pacemaker. Small pleural effusions with decreased parenchymal findings at the lung bases. Chronic pleural thickening laterally on the left with old healed rib fractures. Prior kyphoplasty with degenerative changes. Impression: Persistent cardiomegaly with permanent pacemaker. Motion artifact limits exam with minimally reduced atelectasis/infiltration/edema at the lung bases with residual small pleural effusions. Chronic left lateral pleural thickening with old healed rib fractures. PROCEDURE INTERPRETED AT [facility] DEPARTMENT OF RADIOLOGY Final Report Signed by: Dr. Aniya Milligan
[2017-04-11 18:49] LABS: ABG Base Excess 6.8 MMOL/L (-2.5-2.5); ABG HCO3 29.4 MMOL/L (20-26); ABG Oxygen Saturation 95.6 % (95-100); ABG PCO2 34.9 MM HG (35-48); ABG PH 7.543 (7.35-7.45); ABG PO2 68.2 MM HG (80-95); ABG TCO2 30.4 MMOL/L (23-27)
--- NOTE | 2017-04-11 18:59 | Emergency Department Note ---
Dann Houston Hilary, am scribing for, and in the presence of, Hua Barrientos MD 18:21. Floyd Houston Robert M, MD, personally performed the services described in this documentation, ascribed by Saba Quigley in my presence, and it is both accurate and complete [id number] . Arrival - Arrival Chief Complaint: Altered Mental Status ED Nursing Triage Note: pt talked on the cellphone with this at 1600 and sounded confusion per . at 1645 the longterm said pt became unable to speak. pt has weakness in arms and legs all the time per . pulled a fentanyl 50mcg patch off Mode of Arrival: Stretcher Limitations: No Limitations Source: Family, RN Notes Reviewed Time Seen by Provider: 04/11/17 18:10 - History of Present Illness HPI Narrative: Pt is a 66 y/o male brought into the ED via EMS with c/o AMS. Pt is unresponsive and sleeping in the room but his gives the history. She states that she was talking to the pt on the cellphone around 1600 and sounded confused and having a panic attack. She went to the longterm around 1645 and the pt was unable to speak when he is usually very articulate. Pts confirms that he takes Moran and Fentanyl 50mcg patches. No other complaints or problems stated in the ED. She also notes a cough that he has had. Onset (ago): hour(s) Consistency: constant Severity: mild Severity scale (1-10): 1 Allergies/Adverse Reactions: Allergies Allergy/AdvReac Type Severity Reaction Status Date / Time No Known Allergies Allergy Verified 02/19/17 20:46 Home Medications: Home Medications Medication Instructions Recorded Confirmed Type Imipramine HCl 25 mg PO DAILY 02/20/17 04/11/17 History Levothyroxine Tab [Synthroid Tab] 100 mcg PO DAILY 02/20/17 04/11/17 History Potassium Chloride Liquid 15 ml PO BID 02/20/17 04/11/17 History Theophylline ER Tab 300 mg PO Q12H 02/20/17 04/11/17 History Bisoprolol [Zebeta] 5 mg PO DAILY tablet 03/02/17 04/11/17 Rx Folic Acid Tab 1 mg PO DAILY tablet 03/02/17 04/11/17 Rx Lidocaine 5% Patch [Lidoderm 5% 1 patch TRANSDERM DAILY patch 03/02/17 Rx Patch] Multivitamin (Centrum) [Centrum 1 tablet PO DAILY tablet 03/02/17 04/11/17 Rx Tab] Thiamine Tab [Vitamin B1 Tab] 100 mg PO DAILY tablet 03/02/17 04/11/17 Rx amLODIPine [Norvasc] 10 mg PO DAILY tablet 03/02/17 04/11/17 Rx miSOPROStol [Cytotec] 200 mcg PO DAILY tablet 03/02/17 04/11/17 Rx HYDROcodone/ACETAMIN 10-325 [Moran 1 tablet PO TID PRN 03/14/17 04/11/17 History 10-325] Albuterol Sulfate [Albuterol Neb] 2.5 mg RESP TX TID 04/11/17 04/11/17 History Ascorbic Acid Tab [Vitamin C Tab] 500 mg PO DAILY 04/11/17 04/11/17 History Bisacodyl Tab [Dulcolax Tab] 5 mg PO DAILY PRN 04/11/17 04/11/17 History Clorazepate [Tranxene] 7.5 mg PO BID 04/11/17 04/11/17 History Furosemide Tab [Lasix Tab] 40 mg PO DAILY 04/11/17 04/11/17 History Ibuprofen Tab [Motrin Tab] 400 mg PO BID 04/11/17 04/11/17 History Lactulose Liquid [Chronulac] 30 ml PO BID 04/11/17 04/11/17 History Magnesium Hydroxide Susp [Milk of 30 ml PO DAILY PRN 04/11/17 04/11/17 History Magnesia] Methocarbamol Tab [Robaxin Tab] 1,000 mg PO TID 04/11/17 04/11/17 History Trazodone HCl 100 mg PO DAILY 04/11/17 04/11/17 History Zaleplon [Sonata] 10 mg PO DAILY 04/11/17 04/11/17 History fentaNYL [Fentanyl 50 mcg/hr Patch] 1 patch TRANSDERM Q3DAY 04/11/17 04/11/17 History Review of System - Review of System ROS unobtainable: due to mental status - Review of System Respiratory: Present: cough Medical,Surgical,& Family Hx - Medical History Cardio: History of: Hypertension, Pacemaker (Dual-chamber on February 28, 2007) Psychological: History of: Anxiety Disorders, Depression Neurology: History of: Vertigo HEENT: History of: Eye Problem (WEARS GLASSES, NEAR SIGHTED, CATARACT LEFT EYE) Respiratory: History of: Bronchitis, COPD, Intubation, Pulmonary Hypertension, Pneumonia Genitourinary: History of: Prostate Problems (PROSTATE CA) Gastrointestinal: History of: Gastrointestinal Bleed, Hemorrhoids Musculoskeletal: History of: Back/Neck Problems, Degenerative Disk Disease, Herniated Disk, Musculoskeletal Problems (suspected MS, fx T-) Other: History of: Miscellaneous Medical Problems (ankylosing spondylitis) - Surgical History Cardiac Surgeries: Patient Denies: Femoral-Popliteal Bypass Graft, Cardiac Catheterization, Cardiac Surgery, Carotid Endarterectomy, Internal Defibrillator, Vascular Access Devices Thoracic Surgeries: Patient denies;: Organ Transplant Neurologic Surgeries: Patient denies: Neurologic Surgery HEENT Surgeries: Surgical HX of: Tonsilectomy & Adenoidectomy Patient denies: Carotid Endarterectomy Abdominal Surgeries: Patient denies: Abdominal Surgery, Splenectomy Reproductive Surgeries: Surgical HX of;: Genitourinary Surgery, Prostate Surgery (PROSTATECTOMY) Orthopedic Surgeries: Surgical HX of;: Orthopedic Surgery (RIGHT ANKLE FRACTURE) - Family History Family History: Reports;: Family Cancer (FATHER (TESTICULAR CA)), Family Diabetes (FATHER), Family Heart Disease (MOTHER), Family Hypertension - Social History Smoking Status: Former smoker Frequency of Alcohol Use: None Type of Drug Use: None Exam Vital Signs: Vital Signs Temperature 98.5 F 04/11/17 17:53 Pulse Rate 96 H 04/11/17 18:39 Respiratory Rate 20 04/11/17 18:39 Blood Pressure 113/67 04/11/17 18:39 O2 Sat by Pulse Oximetry 98 04/11/17 18:39 - General Exam limited due to: ALOC General appearance: in no apparent distress, lethargic (unresponsive) - Head Head exam: Present: atraumatic, normocephalic - Eye Eye exam: Absent: PERRL (Pin point pupils) - ENT ENT exam: Present: mucous membranes moist, TM's normal bilaterally. Absent: mucous membranes dry - Neck Neck exam: Present: full ROM, trachea midline. Absent: tenderness - Chest Chest inspection: Present: symmetric chest wall rise. Absent: tenderness - Respiratory Respiratory exam: Absent: normal lung sounds bilaterally (course breath sounds) , respiratory distress - Cardiovascular Cardiovascular exam: Present: regular rate, normal rhythm, normal heart sounds. Absent: murmur, rubs, gallop - Abdominal Exam Abdominal exam: Present: soft (perturbant ), normal bowel sounds. Absent: distention, tenderness - Skin Skin exam: Present: warm, dry, intact, normal color. Absent: rash Results - Labs CBC & BMP: 04/11/17 18:01 04/11/17 18:01 Lab Results: I have reviewed the patients labs Labs: Lab Results WBC 11.7 T/CUMM (4-12) 04/11/17 18:01 RBC 3.93 MC/CUMM (3.8-5.5) 04/11/17 18:01 Hgb 13.3 GM/DL (14.0-18.0) L 04/11/17 18:01 Hct 39.0 VOL% (42.0-52.0) L 04/11/17 18:01 MCV 99.2 FL (87-102) 04/11/17 18:01 MCH 34 PG (27-34) 04/11/17 18:01 MCHC 34.1 GM/DL (32-36) 04/11/17 18:01 RDW 13.5 % (9.3-17.3) 04/11/17 18:01 Plt Count 239 T/CUMM (130-400) 04/11/17 18:01 MPV 12.0 FL (9.6-12.0) 04/11/17 18:01 Neut % (Auto) 78.9 % (38.7-73.9) H 04/11/17 18:01 Lymph % (Auto) 7.3 % (21.2-54.2) L 04/11/17 18:01 [place] % (Auto) 11.5 % (1.7-12.7) 04/11/17 18:01 Eos % (Auto) 0.5 % (0.00-10.9) 04/11/17 18:01 Baso % (Auto) 0.6 % (0.0-0.8) 04/11/17 18:01 Neut # (Auto) 9.3 10*3/uL (1.4-7.4) H 04/11/17 18:01 Lymph # (Auto) 0.9 10*3/uL (1.4-4.0) L 04/11/17 18:01 [place] # (Auto) 1.4 10*3/uL (0.11-0.8) H 04/11/17 18:01 Eos # (Auto) 0.1 10*3/uL (0.0-0.87) 04/11/17 18:01 Baso # (Auto) 0.1 10*3/uL (0.0-0.2) 04/11/17 18:01 Immature Gran % 1.2 % 04/11/17 18:01 Nucleated RBC % 0.0 /100WBC 04/11/17 18:01 Immature Gran # 0.14 # 04/11/17 18:01 Nucleated RBCs # 0.00 10*3/uL 04/11/17 18:01 Sodium 139 MMOL/L (136-145) 04/11/17 18:01 Potassium 4.3 MMOL/L (3.5-5.1) 04/11/17 18:01 Chloride 99 MMOL/L (98-107) 04/11/17 18:01 Carbon Dioxide 34 MMOL/L (21-32) H 04/11/17 18:01 Anion Gap 10.3 MMOL/L (5.0-15.0) 04/11/17 18:01 BUN 29 MG/DL (7-18) H 04/11/17 18:01 Creatinine 0.70 MG/DL (0.70-1.30) 04/11/17 18:01 GFR Calculation 140 ML/MIN 04/11/17 18:01 BUN/Creatinine Ratio 41.00 RATIO (6.00-20.00) H 04/11/17 18:01 Glucose 105 MG/DL (74-106) 04/11/17 18:01 Calculated Osmolality 282.5 MOS/KG (273-304) 04/11/17 18:01 Calcium 9.5 MG/DL (8.5-10.1) 04/11/17 18:01 Magnesium 2.5 MG/DL (1.8-2.4) H 04/11/17 18:01 ABG pH 7.543 (7.35-7.45) H 04/11/17 18:45 ABG pCO2 34.9 MM HG (35-48) L 04/11/17 18:45 ABG pO2 68.2 MM HG (80-95) L 04/11/17 18:45 ABG HCO3 29.4 MMOL/L (20-26) H 04/11/17 18:45 ABG Total CO2 30.4 MMOL/L (23-27) H 04/11/17 18:45 ABG O2 Saturation 95.6 % (95-100) 04/11/17 18:45 ABG Base Excess 6.8 MMOL/L (-2.5-2.5) H 04/11/17 18:45 FiO2 28.00 PERCENT (0-100) 04/11/17 18:45 - Diagnostic Findings Procedure: Chest x-ray: report reviewed by me (Chronic changes) Disposition Clinical Impression: Altered mental status, Ankylosing spondylitis, COPD (chronic obstructive pulmonary disease), Peripheral neuropathy, Debility, Chronic back pain Case discussed with: patient, patient's family Disposition: Still a Patient Condition: Stable Time of Disposition: 19:24
[2017-04-11 19:33] LABS: Apearance,Urine CLOUDY (Clear); Bacteria,Urine Occasional /HPF (Few); Bilirubin,Urine Negative (Negative); Blood, Urine Negative (Negative); Glucose,Urine (UA) Negative (Negative); Ketones,Urine Negative (Negative); Mucus,Urine Occasional /LPF (Occasional); Nitrite,Urine Negative (Negative); Protein,Urine 30 MG/DL; RBC,Urine 6 /HPF (0-4); Urine Color Yellow (Yellow); Urine Specific Gravity 1.012 (1.001-1.035); Urine Urobilinogen < 2.0 EU/DL (0.2-1.0); WBC,Urine 228 /HPF (0-6)
[2017-04-11 20:10] LABS: Barbiturates Screen,Urine Negative (Negative); Benzodiazepines Screen,Urine Positive (Negative); Cannabinoid Screen,Urine Positive (Negative); Opiate Screen,Urine Positive (Negative); Phencyclidine Screen,Urine Negative (Negative)
--- NOTE | 2017-04-11 21:23 | Hospitalist History & Physical ---
Assessment and Plan (1) Altered mental status Status: Acute Assessment and plan: This is most likely multifactorial- UTI, possibly opioid overdose,to r/o acute CVA Plan Monitored bed Repeat Narcan Remove Fetanyl patch IVF-gently IV antibiotics ammonia level Serial cardiac enzymes Blood cultures, urine cultures Vit b12, folate, rpr, TSH level baby asa Neuro consult. Hold all pain meds, tranquilizers, sedatives for now PT/OT/ST consult Current Visit: Yes (2) Ankylosing spondylitis Status: Chronic Assessment and plan: Radiological exams will be a problem. PT/OT/ST consults Current Visit: No (3) Hypothyroidism Status: Chronic Assessment and plan: TSH level, resume supplements Current Visit: No (4) Status post biventricular pacemaker Status: Chronic Assessment and plan: will place on a monitored bed get cardiac enzymes. Current Visit: No (5) HTN (hypertension) Status: Acute Assessment and plan: will resume some of his home meds Current Visit: Yes History of Present Illness Chief complaint: AMS History of present illness: Mr. Fischer is a 66 year old male with a history of ankylosing spondylitis, HTN, s/p pacemaker, chronic neck and back pain who was brought from the [facility] by [facility] for evaluation of altered mental status. Patient cound not give history so this was as per notes and who was present in the room. Patient apparently fell off his walker at home some time ago and was sent to the rehab after leaving the hospital. He was doing ok at the [facility] up until this evening around 4- 5pm when he started yelling, was combative but his speech was noted to be impaired, though he was moving all his extremities.I was told he was then given his medications and later became unresponsive, sleepy. He takes Centuria and fetanyl 50mcg patches. Upon arrival, he was unable to communicate, was sleeping. He couldnt get a CT because he is unable to lay flat due to his spondylitis. UA was postive and UDS showed opiates and benzos.ABG showed ph-7.5, PCO2-34.9, po2-68.2.CXR showed persistent cardiomegaly with permanent pacemaker minimally reduced atelectasis/infiltration/edema at the lung bases with residual small pleural effusions.. He was given Narcan x2 with no appreciable response. We will admit him to a monitored bed for further evaluation. Home Medications Medication Instructions Recorded Confirmed Type Imipramine HCl 25 mg PO DAILY 02/20/17 04/11/17 History Levothyroxine Tab [Synthroid Tab] 100 mcg PO DAILY 02/20/17 04/11/17 History Potassium Chloride Liquid 15 ml PO BID 02/20/17 04/11/17 History Theophylline ER Tab 300 mg PO Q12H 02/20/17 04/11/17 History Bisoprolol [Zebeta] 5 mg PO DAILY tablet 03/02/17 04/11/17 Rx Folic Acid Tab 1 mg PO DAILY tablet 03/02/17 04/11/17 Rx Lidocaine 5% Patch [Lidoderm 5% 1 patch TRANSDERM DAILY patch 03/02/17 Rx Patch] Multivitamin (Centrum) [Centrum 1 tablet PO DAILY tablet 03/02/17 04/11/17 Rx Tab] Thiamine Tab [Vitamin B1 Tab] 100 mg PO DAILY tablet 03/02/17 04/11/17 Rx amLODIPine [Norvasc] 10 mg PO DAILY tablet 03/02/17 04/11/17 Rx miSOPROStol [Cytotec] 200 mcg PO DAILY tablet 03/02/17 04/11/17 Rx HYDROcodone/ACETAMIN 10-325 [Centuria 1 tablet PO TID PRN 03/14/17 04/11/17 History 10-325] Albuterol Sulfate [Albuterol Neb] 2.5 mg RESP TX TID 04/11/17 04/11/17 History Ascorbic Acid Tab [Vitamin C Tab] 500 mg PO DAILY 04/11/17 04/11/17 History Bisacodyl Tab [Dulcolax Tab] 5 mg PO DAILY PRN 04/11/17 04/11/17 History Clorazepate [Tranxene] 7.5 mg PO BID 04/11/17 04/11/17 History Furosemide Tab [Lasix Tab] 40 mg PO DAILY 04/11/17 04/11/17 History Ibuprofen Tab [Motrin Tab] 400 mg PO BID 04/11/17 04/11/17 History Lactulose Liquid [Chronulac] 30 ml PO BID 04/11/17 04/11/17 History Magnesium Hydroxide Susp [Milk of 30 ml PO DAILY PRN 04/11/17 04/11/17 History Magnesia] Methocarbamol Tab [Robaxin Tab] 1,000 mg PO TID 04/11/17 04/11/17 History Trazodone HCl 100 mg PO DAILY 04/11/17 04/11/17 History Zaleplon [Sonata] 10 mg PO DAILY 04/11/17 04/11/17 History fentaNYL [Fentanyl 50 mcg/hr Patch] 1 patch TRANSDERM Q3DAY 04/11/17 04/11/17 History Allergies Allergy/AdvReac Type Severity Reaction Status Date / Time No Known Allergies Allergy Verified 02/19/17 20:46 Medical,Surgical,& Family Hx - Medical History Cardio: History of: Hypertension, Pacemaker (Dual-chamber on February 28, 2007) Psychological: History of: Anxiety Disorders, Depression Neurology: History of: Vertigo HEENT: History of: Eye Problem (WEARS GLASSES, NEAR SIGHTED, CATARACT LEFT EYE) Respiratory: History of: Bronchitis, COPD, Intubation, Pulmonary Hypertension, Pneumonia Genitourinary: History of: Prostate Problems (PROSTATE CA) Gastrointestinal: History of: Gastrointestinal Bleed, Hemorrhoids Musculoskeletal: History of: Back/Neck Problems, Degenerative Disk Disease, Herniated Disk, Musculoskeletal Problems (suspected MS, fx T-) Other: History of: Miscellaneous Medical Problems (ankylosing spondylitis) - Surgical History Cardiac Surgeries: Patient Denies: Femoral-Popliteal Bypass Graft, Cardiac Catheterization, Cardiac Surgery, Carotid Endarterectomy, Internal Defibrillator, Vascular Access Devices Thoracic Surgeries: Patient denies;: Organ Transplant Neurologic Surgeries: Patient denies: Neurologic Surgery HEENT Surgeries: Surgical HX of: Tonsilectomy & Adenoidectomy Patient denies: Carotid Endarterectomy Abdominal Surgeries: Patient denies: Abdominal Surgery, Splenectomy Reproductive Surgeries: Surgical HX of;: Genitourinary Surgery, Prostate Surgery (PROSTATECTOMY) Orthopedic Surgeries: Surgical HX of;: Orthopedic Surgery (RIGHT ANKLE FRACTURE) - Family History Family History: Reports;: Family Cancer (FATHER (TESTICULAR CA)), Family Diabetes (FATHER), Family Heart Disease (MOTHER), Family Hypertension - Social History Smoking Status: Former smoker Frequency of Alcohol Use: None Type of Drug Use: None Exam - Constitutional Vitals: Period Temp Pulse Resp BP Sys/Ivey Pulse Ox Last 24 Hr 98.5 F-98.5 F 96-101 18-20 108-113/60-73 92-100 Results - Labs CBC & BMP: 04/11/17 18:01 04/11/17 18:01
[2017-04-11] MEDS ORDERED: FUROSEMIDE 40 MG/4 ML VIAL IV STA (22:26)
[2017-04-11] MEDS ORDERED: FUROSEMIDE 40 MG/4 ML VIAL ONE (22:28)
[2017-04-12] MEDS ORDERED: MAGNESIUM HYDROXIDE SUSP 30 ML UDCUP PO PRN (00:03)
[2017-04-12] MEDS ORDERED: BISACODYL 5 MG TABLET PO PRN (00:03)
[2017-04-12] MEDS ORDERED: ASPIRIN CHEW 81 MG TABLET PO STA (00:07)
[2017-04-12 00:36] LABS: ABG Base Excess 5.4 MMOL/L (-2.5-2.5); ABG HCO3 28.9 MMOL/L (20-26); ABG Oxygen Saturation 80.9 % (95-100); ABG PH 7.305 (7.35-7.45); ABG PO2 50.3 MM HG (80-95); ABG TCO2 30.7 MMOL/L (23-27)
[2017-04-12 00:38] LABS: ABG PCO2 69.5 MM HG (35-48)
[2017-04-12] MEDS ORDERED: NALOXONE 0.4 MG/ML VIAL IV ONE (01:16)
[2017-04-12] MEDS ORDERED: VANCOMYCIN INJ 1,000 MG in SODIUM CHLORIDE 0.9% 250 ML IV ONE (02:00)
[2017-04-12 02:47] LABS: Hemoglobin A1C 5.8 % (4.2-6.3)
[2017-04-12 02:52] LABS: Theophylline 17.1 UG/ML (10-20)
[2017-04-12] MEDS: SODIUM CHLORIDE 0.9% 1,000 ML IV SCH ×2 (02:52→21:46)
[2017-04-12 02:54] LABS: Ammonia 12 UMOL/L (11-32)
[2017-04-12 02:58] LABS: Troponin I Only < 0.015 NG/ML (0.00-0.045)
[2017-04-12 03:15] LABS: ABG Base Excess 4.5 MMOL/L (-2.5-2.5); ABG HCO3 28.3 MMOL/L (20-26); ABG Oxygen Saturation 91.1 % (95-100); ABG PCO2 63.2 MM HG (35-48); ABG PH 7.324 (7.35-7.45); ABG PO2 65.9 MM HG (80-95); Allen Test Positive; Pt O2 Delivery Device BIPAP
[2017-04-12 03:29] LABS: Magnesium 2.3 MG/DL (1.8-2.4); Thyroid Stimulating Hormone 0.28 uIU/ml (0.358-3.74)
[2017-04-12] MEDS: CEFEPIME 500 MG in SODIUM CHLORIDE 0.9% 100 ML IV SCH ×2 (04:03→23:47)
[2017-04-12 04:32] LABS: Folate > 24.0 NG/ML (5.4-24.0)
[2017-04-12 05:58] LABS: Basophils % 0.1 % (0.0-0.8); Hematocrit 36.5 VOL% (42.0-52.0); Hemoglobin 12.4 GM/DL (14.0-18.0); Immature Granulocytes % 0.9 %; Immature Granulocytes Absolute 0.14 #; Lymphocytes # 0.3 10*3/uL (1.4-4.0); Lymphocytes % 1.9 % (21.2-54.2); Mean Corpuscular Hemoglobin 34 PG (27-34); Mean Corpuscular Volume 98.9 FL (87-102); Monocytes # 1.3 10*3/uL (0.11-0.8); Monocytes % 8.5 % (1.7-12.7); Neutrophils # 13.3 10*3/uL (1.4-7.4); Neutrophils % 88.6 % (38.7-73.9); Platelet Count 210 T/CUMM (130-400); Red Blood Count 3.69 MC/CUMM (3.8-5.5); Red Cell Distribution Width 13.3 % (9.3-17.3)
[2017-04-12] MEDS: LEVOTHYROXINE 100 MCG TABLET PO SCH (06:14)
[2017-04-12 06:19] LABS: Hypochromasia 1+; Lymphocytes 1 % (20-55); Segmented Neutrophils 88 % (50-85); Total Cells Counted 100
[2017-04-12 06:20] LABS: Microcytosis 1+; Platelet Estimate Normal
[2017-04-12 06:31] LABS: Albumin 2.6 G/DL (3.4-5.0); Bilirubin,Total 0.9 MG/DL (0.2-1.0); Calcium 8.5 MG/DL (8.5-10.1); Osmolality,Calculated 288.1 MOS/KG (273-304); Potassium 3.3 MMOL/L (3.5-5.1); Risk Ratio 3.88; Total Protein 5.9 G/DL (6.4-8.3); VLDL CHOLESTEROL 17.6 MG/DL
[2017-04-12 06:33] LABS: Troponin I Only < 0.015 NG/ML (0.00-0.045)
[2017-04-12] MEDS: FOLIC ACID 1 MG TABLET PO SCH (08:57)
[2017-04-12] MEDS: THIAMINE 100 MG TABLET PO SCH (08:57)
[2017-04-12] MEDS: MULTIVITAMIN (CENTRUM) TABLET PO SCH (08:57)
[2017-04-12] MEDS: THEOPHYLLINE ER 300 MG TABLET PO SCH ×2 (08:57→21:38)
[2017-04-12] MEDS: ASCORBIC ACID 500 MG TABLET PO SCH (08:57)
[2017-04-12] MEDS: BISOPROLOL 5 MG TABLET PO SCH (08:57)
[2017-04-12] MEDS ORDERED: cefTRIAXone 1,000 MG in SODIUM CHLORIDE 0.9% 100 ML IV SCH (09:00)
[2017-04-12] MEDS: LIDOCAINE 5% PATCH TRANSDERM SCH (09:14)
[2017-04-12] MEDS: CLINDAMYCIN INJ 300 MG in PREMIX 1 EACH IV SCH ×2 (09:18→17:43)
--- NOTE | 2017-04-12 09:37 | Hospitalist Progress Note ---
Assessment and Plan (1) Altered mental status Status: Acute Assessment and plan: 1)suspected acute stroke- head CT this morning, consult pendign from Dr Thacker. carotids, echo speech therapy ordered by Tuan Philip NP. Anticoagulate if no bleed on head CT. Get EKG- no history of afib. check lipids. Prior to this he was alert and communicative, very articulate. It will be hard or nearly impossible for him to communicate if he can't speak since he also can' t nod or shake his head. 2)HTN 3)ankylosing spondylitis 4)chronic pain- on narcotics routinely. Also smokes marijuana as he has done many years per Dr Ramírez. 5)hypokalemia- replace. 6)GPC in urine- WBC up a little bit. on clinda and ceftriaxone. Current Visit: Yes (2) Ankylosing spondylitis Status: Chronic Current Visit: No (3) Peripheral polyneuropathy Status: Acute Current Visit: No (4) Status post biventricular pacemaker Status: Chronic Current Visit: No (5) HTN (hypertension) Status: Acute Current Visit: Yes Hospitalist: Subjective Interval history: Mr Fischer is more alert this morning and it is now clear that his speech is garbled and his right propeller tester is weak compared to the left. These are new compared to when I was him last admit several weeks ago. I discussed CT scannign with the radiologist and he said they could do CT head with him propped up since he can't lie flat due to his ankylosing spondylitis. He seems to understand at least some of what we say but cannot respond with clear speech. Exam - Constitutional Vitals: Period Temp Pulse Resp BP Sys/Ivey Pulse Ox Last 24 Hr 97.8 F-98.6 F 96-102 18-26 104-156/60-92 83-100 General appearance: normal weight, no acute distress - Head Head exam: Present: normocephalic, atraumatic - Eye Eye exam: Present: EOMI. Absent: scleral icterus Pupils: Present: SAMSON - Respiratory Respiratory exam: Present: clear to auscultation bilaterally - Cardiovascular Cardiovascular exam: Present: regular rate and rhythm (NSR on tele, Dr Ramírez noted occ irregularity on exam) - GI/Abdominal GI/Abdominal exam: Present: normal bowel sounds, soft. Absent: tenderness - Extremities Exam Extremities exam: Absent: edema - Neurological Exam Neurological exam: Present: other (wakes and remains alert tries to speak, can follow commands with his left hand and arm. Both legs and right arm weak. left face droop.) - Skin Skin exam: Present: warm, dry Results - Labs CBC & BMP: 04/12/17 05:21 04/12/17 05:21 Lab Results: I have reviewed the past 24 hour labs
--- NOTE | 2017-04-12 09:54 | EKG Report ---
Stationary ECG Study [facility] Test Date: 04/12/2017 9:55:28 AM Pat Name: BREANN KELLEY Department: Room: 109 Gender: M Education Nurse: MICHELLE : 1950 Requested by: Donna Sherman Order Number: [id number] Reading MD: ESTEBAN RAHMAN Intervals Patten Rate: 101 P: 22 GA: 240 QRS: 49 QRSD: 94 T: 14 QT: 322 QTc: 380 Interpretive Statements SINUS TACHYCARDIA WITH PROLONGED GA INTERVAL WITH OCCASIONAL SUPRAVENTRICULAR PREMATURE COMPLEXES POSSIBLE LEFT ATRIAL ABNORMALITY ABNORMALITY Electronically Signed On 04-12-17 13:12:50 CDT by ESTEBAN RAHMAN [email or web address]
--- NOTE | 2017-04-12 10:07 | Pulmonology Consult Note ---
History of Present Illness Chief complaint: Altered mental status. Acute right body CVA. Ankylosing spondylitis History of present illness: Mr. Fischer is a 66 year old white male longtime patient of mine. I been asked to see this patient in pulmonary consultation for evaluation and treatment. The patient was in a snf situation. He had an altered mental status and he was subsequently referred to [facility] emergency room. He had right body weakness and his speech was altered and the patient was hard to arouse. CT scan of his head was not done because the patient could not lie flat. We have called radiology and ask if they can use away H&H that they can. This morning the patient's arousable and he tries to talk. He cannot give a review of systems therefore his review of systems is negative. Allergies. Codeine Medicines. See below Immunizations. Pneumovax was given 07/17/2014. Past history. Prostate cancer diagnosed in 2006. The patient had a robotic assisted radical laparoscopic prostatectomy by Dr. Gino Hunter at [facility]. He had a Zehra grade 4+3 with a score of 7 with multiple foci of parenchymal invasion identified involving both lobes and approximately 40-45% of the prostate tissue. Urethral bladder neck and peripheral soft tissue margins were free of tumor. Patient had a right and left seminal vessels biopsies were negative. This was a pathologic stage pT2c, NX MX. Patient has ankylosing spondylitis with a past history of underlying spinal cord disease. He has had symptoms of spinal stenosis. He has high blood pressure. August 2006 he had decortication of the left lung for benign pleural lesions which are related to an empyema. This left him with residual pleural scarring which is gradually improved but is never quite resolved. Patient was in [facility] November 2006 with transient loss of feeling and a muscle activity in both lower extremities which occurred while sitting. At that time he had left upper extremity symptoms that the neurologist and initially thought might be multiple sclerosis. 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 These symptoms appear to be related to spinal stenosis. Patient has COPD with asthma. In the past he had situational depression which resolved. He has hyperlipidemia and pernicious anemia secondary to B12 deficiency. History of high blood pressure. Hypothyroidism. Hyperlipidemia. Chronic venous stasis of the lower extremities. Peripheral sensory neuropathy of the lower extremities. In October 2013 he had a T9 compression fracture which required kyphoplasty. Patient was in [facility] in November and December 2015 secondary to hyponatremia. 2017 the patient had placement of a dual-chamber cardiac pacer. He was hospitalized in [facility] in February 2017 with severe back pain. Family history. The patient's mother's twin sister had thyroid cancer at age 70 -75. His father was a World War II and a of the [place] [employer] and he had 3 tours in [place]. Patient's father was diagnosed with schizophrenia. Patient has [place] ancestry. He is pointed out to me in the past has increased incidence of ankylosing spondylitis in the [place] indents. Social history. Patient is . 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 The patient's been a cigarette smoker in the past and stopped smoking in July 2016. He previously worked in [employer]. 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 Urine is growing a gram-positive cocci. I have dual antibiotic coverage until ID is available Chest x-ray. My interpretation. Heart size is normal. Pulmonary arteries are normal. No hilar adenopathy. Mediastinum is normal. Lung easley are clear with no masses infiltrates or pulmonary edema. There is pleural-based scar most prominent at the left costophrenic angle. ABGs on BiPAP and FiO2 60% show a pH of 7.32, PCO2 is 63.2, PO2 65.9 and a bicarb of 28.3. Lab. Sodium is 142. Potassium 3.3. Creatinine is 0.40 with a BUN of 23. Glucoses are normal. Hemoglobin A1c is normal at 5.8. Alkaline La is up at 244 transaminases and bilirubin are normal. Total protein and albumin are low at 5.92.6 respectively. Cardiac enzymes are negative. Cholesterol was 221. HDL is 57. LDL is 134. Triglycerides are 88. TSH is slightly low free T4 is slightly up at 1.52. Vitamin B12 level and folic acid level normal. EKG rhythm strips. Sinus rhythm with slight irregularity. Toxicology. See report. Narcan made no difference when this was given Physical exam. Vital signs. See below Face. Slight right face weakness. No swelling of the lips or tongue. Neck. Symmetrical with decreased range of motion. No masses. Thyroid was not palpated. Lymphatics. No submandibular cervical supraclavicular or epitrochlear adenopathy Chest. Hyperinflated with mild prolongation of expiration. No wheeze no stridor and no rales Heart. Regular. Grade 1/6 systolic ejection murmur left sternal border. I do not hear any radiation Abdomen. Nondistended. Rare bowel sounds. Lower extremities. No significant edema which represents an improvement. and rectal deferred Arterial exam. Carotid upstrokes are fair bilaterally upper extremity pulses are palpable. Lower extremity pulses are nonpalpable. No evidence of ischemia. Venous exam. Neck and upper extremities are normal. No evidence of chronic venous stasis over the lower extremities. The remainder of the physical exam is negative. Impression. 1. Acute CVA. Speech and right body appear to be involved. 2. Altered mental status. Most likely secondary to #1. CT scan of the brain is pending 3. Ankylosing spondylitis and probable spinal stenosis. Anatomy and pain limit mobility. 4. Past history of T9 compression fracture requiring kyphosis. October 2013. 5. Peripheral sensory neuropathy. Symptoms are gradually worsened over time. 6. Chronic venous stasis of the lower extremities. Improved 7. Vitamin B12 deficiency. On replacement 8. Past history tobacco abuse. None now. 9. COPD/asthma 10. Past history of high blood pressure 11. Hypothyroidism. On replacement 12. Hyperlipidemia 13. Past history of prostate cancer. Resected. No evidence of recurrence 14. See past. 15. Dual-chamber cardiac pacer 16. Acute urinary tract infection. Gram-positive cocci Plan. 1. Neurology consultation 2. CT of the head 3. Make a decision about anticoagulation as soon as possible 4. Ultrasounds of the carotids 5. Echocardiogram. Look for source of emboli 6. Consult physical therapy, Occupational Therapy and speech therapy 7. Double antibiotic coverage for gram-positive urinary tract infection until ID is known 8. Dr. Nelson and I have reviewed and discussed the case and we have coordinated our care. 9. Keep O2 sats 93% or above. Patient's a mild CO2 retainer but does not appear that he is going to be very sensitive to FiO2's unless he has a lot of neuro suppressive medications on board. 10. See orders Home Medications Medication Instructions Recorded Confirmed Type Imipramine HCl 25 mg PO DAILY 02/20/17 04/11/17 History Levothyroxine Tab [Synthroid Tab] 100 mcg PO DAILY 02/20/17 04/11/17 History Potassium Chloride Liquid 15 ml PO BID 02/20/17 04/11/17 History Theophylline ER Tab 300 mg PO Q12H 02/20/17 04/11/17 History Bisoprolol [Zebeta] 5 mg PO DAILY tablet 03/02/17 04/11/17 Rx Folic Acid Tab 1 mg PO DAILY tablet 03/02/17 04/11/17 Rx Lidocaine 5% Patch [Lidoderm 5% 1 patch TRANSDERM DAILY patch 03/02/17 Rx Patch] Multivitamin (Centrum) [Centrum 1 tablet PO DAILY tablet 03/02/17 04/11/17 Rx Tab] Thiamine Tab [Vitamin B1 Tab] 100 mg PO DAILY tablet 03/02/17 04/11/17 Rx amLODIPine [Norvasc] 10 mg PO DAILY tablet 03/02/17 04/11/17 Rx miSOPROStol [Cytotec] 200 mcg PO DAILY tablet 03/02/17 04/11/17 Rx HYDROcodone/ACETAMIN 10-325 [Amoret 1 tablet PO TID PRN 03/14/17 04/11/17 History 10-325] Albuterol Sulfate [Albuterol Neb] 2.5 mg RESP TX TID 04/11/17 04/11/17 History Ascorbic Acid Tab [Vitamin C Tab] 500 mg PO DAILY 04/11/17 04/11/17 History Bisacodyl Tab [Dulcolax Tab] 5 mg PO DAILY PRN 04/11/17 04/11/17 History Clorazepate [Tranxene] 7.5 mg PO BID 04/11/17 04/11/17 History Furosemide Tab [Lasix Tab] 40 mg PO DAILY 04/11/17 04/11/17 History Ibuprofen Tab [Motrin Tab] 400 mg PO BID 04/11/17 04/11/17 History Lactulose Liquid [Chronulac] 30 ml PO BID 04/11/17 04/11/17 History Magnesium Hydroxide Susp [Milk of 30 ml PO DAILY PRN 04/11/17 04/11/17 History Magnesia] Methocarbamol Tab [Robaxin Tab] 1,000 mg PO TID 04/11/17 04/11/17 History Trazodone HCl 100 mg PO DAILY 04/11/17 04/11/17 History Zaleplon [Sonata] 10 mg PO DAILY 04/11/17 04/11/17 History fentaNYL [Fentanyl 50 mcg/hr Patch] 1 patch TRANSDERM Q3DAY 04/11/17 04/11/17 History Allergies Allergy/AdvReac Type Severity Reaction Status Date / Time codeine Allergy Unknown UNRESPONSIV Verified 04/12/17 00:48 E acetaminophen [From Percocet] Allergy Verified 04/12/17 00:48 escitalopram [From Lexapro] Allergy Verified 04/12/17 00:48 gabapentin [From Neurontin] Allergy Verified 04/12/17 00:48 Hydromorphone [From Dilaudid] Allergy Verified 04/12/17 00:48 Oxycodone [From Percocet] Allergy Verified 04/12/17 00:48 [facility] - Constitutional Vitals: Period Temp Pulse Resp BP Sys/Ivey Pulse Ox Last 24 Hr 97.8 F-98.6 F 96-102 18-26 104-156/60-92 83-100 Medical,Surgical,& Family Hx - Medical History Cardio: History of: Hypertension, Pacemaker (Dual-chamber on February 28, 2007) Psychological: History of: Anxiety Disorders, Depression Neurology: History of: Vertigo HEENT: History of: Eye Problem (WEARS GLASSES, NEAR SIGHTED, CATARACT LEFT EYE) Respiratory: History of: Bronchitis, COPD, Intubation, Pulmonary Hypertension, Pneumonia Genitourinary: History of: Prostate Problems (PROSTATE CA) Gastrointestinal: History of: Gastrointestinal Bleed, Hemorrhoids Musculoskeletal: History of: Back/Neck Problems, Degenerative Disk Disease, Herniated Disk, Musculoskeletal Problems (suspected MS, fx T-) Other: History of: Miscellaneous Medical Problems (ankylosing spondylitis) - Surgical History Cardiac Surgeries: Patient Denies: Femoral-Popliteal Bypass Graft, Cardiac Catheterization, Cardiac Surgery, Carotid Endarterectomy, Internal Defibrillator, Vascular Access Devices Thoracic Surgeries: Patient denies;: Organ Transplant Neurologic Surgeries: Patient denies: Neurologic Surgery HEENT Surgeries: Surgical HX of: Tonsilectomy & Adenoidectomy Patient denies: Carotid Endarterectomy Abdominal Surgeries: Patient denies: Abdominal Surgery, Splenectomy Reproductive Surgeries: Surgical HX of;: Genitourinary Surgery, Prostate Surgery (PROSTATECTOMY) Orthopedic Surgeries: Surgical HX of;: Orthopedic Surgery (RIGHT ANKLE FRACTURE) - Family History Family History: Reports;: Family Cancer (FATHER (TESTICULAR CA)), Family Diabetes (FATHER), Family Heart Disease (MOTHER), Family Hypertension - Social History Smoking Status: Former smoker Frequency of Alcohol Use: Occasionally Type of Drug Use: None Results - Labs CBC & BMP: 04/12/17 05:21 04/12/17 05:21
[2017-04-12] MEDS: METOPROLOL TARTRATE 5 MG/5 ML VIAL IV SCH ×2 (10:46→17:45)
[2017-04-12] MEDS: POTASSIUM CHLORIDE RIDER 10 MEQ in PREMIX 1 EACH IV SCH ×3 (10:47→13:43)
[2017-04-12] MEDS: ALBUTEROL 2.5 MG/3 ML NEB RESP TX SCH ×3 (11:11→19:38)
[2017-04-12] MEDS ORDERED: DEXTROSE 50% 25 GM/50 ML VIAL IV PRN (12:16)
[2017-04-12] MEDS ORDERED: GLUCAGON 1 MG VIAL IM PRN (12:16)
--- NOTE | 2017-04-12 13:29 | Ultrasound Report ---
Exam:US carotid duplex BI Date:04/12/2017 9:43 AM Indication: CVA. Dysphasia. Right-sided weakness Technique: Color Doppler, wave form analysis, and grayscale analysis of the cervical carotid arteries was performed.. Findings: There is mild partially calcified plaque in either carotid bulb. There is antegrade flow in either vertebral artery. There is 50-79% diameter reduction narrowing of the left internal carotid artery and 16-49% diameter reduction narrowing of the right internal carotid artery. Impression: There is 50-79% diameter reduction narrowing of the left internal carotid artery and 16-49% diameter reduction narrowing of the right internal carotid artery. Consider further evaluation with CTA to better quantitate the degree of left internal carotid artery stenosis. Right Side Flow velocities centimeters per second Common carotid artery: 108 Proximal ICA:89.7 Distal ICA:64.4 External carotid artery:223.9 Vertebral artery:54.9 ICA/CCA ratio:0.8 Measurements in millimeters Distal ICA: 4.8 Left SIde Flow velocities centimeters per second Common carotid artery 133 Proximal ICA:160.5 Distal ICA:166.1 External carotid artery:78.4 Vertebral artery:75.6 ICA/CCA ratio:1.2 Measurements in millimeters Distal ICA: 5.7 Today studies were performed utilizing indirect NASCET criteria PROCEDURE INTERPRETED AT [facility] DEPARTMENT OF RADIOLOGY Final Report Signed by: Dr. Lea Sawant
[2017-04-12] MEDS: DESITIN 4OZ/NYSTATIN 15 GRAM MIXTURE PASTE TOP SCH ×2 (13:46→21:39)
--- NOTE | 2017-04-12 14:16 | ECHO Report ---
Royer Fischer 04/12/2017 Exam Date: 11:12 Referring Physician: Kelly Doyle Technologist: RAPHAEL Age: 66 Ht (in): 77 Wt (lb): 249 MExam Location: [facility] Gender: Echo [id number]: CVA, altered mental status, acute Indications:t. body CVA, Ankylosing sponclylitis, Hx. prostate CA, prob. spinal stenosis, anotomy and limit mobility, asthma, Copd, HTN, hypothyroidism, hyperlipidemia, UTI BP: 147 / 84 HR: 105 SinusRhythm: Technically difficult studyTechnical Quality: IMPRESSIONS Left ventricular ejection fraction is estimated at 60 %. Grade I/IV diastolic dysfunction (abnormal relaxation filling pattern), normal to mildly elevated filling pressures. Mild aortic valve regurgitation. Tricuspid regurgitation velocities suggest a RVSP 23mmHg + RAP. Mild right ventricular hypertrophy with no demonstrable increase in right sided pressure. MEASUREMENTS (Male / Female) Normal Values 2D ECHO LV Diastolic Diameter PLAX 4.7 cm 4.2 - 5.9 / 3.9 - 5.3 cm LV Systolic Diameter PLAX 2.8 cm LV Fractional Shortening PLAX 40.4 % IVS Diastolic Thickness 1.0 cm 0.6 - 1.0 / 0.6 - 0.9 cm LVPW Diastolic Thickness 1.0 cm 0.6 - 1.0 / 0.6 - 0.9 cm Aortic Root Diameter 2.7 cm LA Systolic Diameter LX 3.4 cm 3.0 - 4.0 / 2.7 - 3.8 cm DOPPLER TR Peak Velocity 288.0 cm/s TR Peak Gradient 33.2 mmHg FINDINGS Left Ventricle Normal left ventricular cavity size. Grade I/IV diastolic dysfunction (abnormal relaxation filling pattern), normal to mildly elevated filling pressures. Left ventricular ejection fraction is estimated at 60 %. Right Ventricle Normal right ventricular size. The right ventricle is mildly hypertrophied. Right Atrium Normal right atrial size. Left Atrium The left atrium is mildly enlarged. Mitral Valve Mildly thickened mitral valve with mild mitral regurgitation. Aortic Valve The aortic valve is trileaflet and has normal motion. Mild aortic valve regurgitation. Tricuspid Valve Morphologically normal tricuspid valve. Trace tricuspid valve regurgitation. Tricuspid regurgitation velocities suggest a RVSP 23mmHg + RAP. Pulmonic Valve Morphologically normal pulmonic valve. Trace pulmonary valve regurgitation. Pericardium No pericardial effusion. Aorta Normal size aortic root and proximal ascending aorta. Dana Blake (Electronically Signed) 12 April 2017 Final Date: 14:15
--- NOTE | 2017-04-12 15:38 | CT Report ---
CT head/brain wo/w con Indication: Dysphagia. Right-sided weakness. Comparison: None. Technique: CT of the head was performed prior to and following the administration of intravenous contrast. The CT examination was performed using one or more of the following dose reduction techniques: Automatic exposure control, adjustment of the mA and kV according to patient size, use of acute or iterative reconstruction techniques. Findings: There is no evidence of acute intracranial mass, hemorrhage, or infarction. Generalized cerebral atrophy is present. Areas of decreased attenuation within the periventricular white matter and cerebral white matter are present which could be compatible with microvascular ischemia. The basal cisterns are patent. No significant abnormality is demonstrated to involve the posterior fossa or cerebellum. Orbits and globes demonstrate no evidence of significant pathology. The paranasal sinuses are clear. No significant abnormality is demonstrated to involve the mastoid air cells. The calvarium and overlying soft tissues demonstrate no evidence of acute pathology. Following the administration of intravenous contrast, no unexpected areas of enhancement are demonstrated within the brain, meninges, orbits. Impression: 1. No CT evidence of acute intracranial pathology. MRI brain without intravenous contrast administration is recommended for further exclusion of acute ischemia provided the given symptoms. 04/12/2017 3:34 PM PROCEDURE INTERPRETED AT [facility] DEPARTMENT OF RADIOLOGY Final Report Signed by: Dr. Bladimir Barrientos
--- NOTE | 2017-04-12 16:51 | Neurology Consult Note ---
History of Present Illness History of present illness: Patient is unable to provide any history. History basically obtained from the chart. No family is available at this time. Mr. Fischer is a 66 year old male with a history of ankylosing spondylitis, HTN, s/p pacemaker, chronic neck and back pain who was brought from the [place] by EMS for evaluation of altered mental status. Patient apparently fell off his walker at home some time ago and was sent to the rehab after leaving the hospital. He was doing ok at the [place] [facility] up until yesterday evening around 4- 5pm when he started yelling, was combative but his speech was noted to be impaired, though he was moving all his extremities. He takes [place] and fetanyl 50mcg patches. Upon arrival, he was unable to communicate, was sleeping. He couldnt get a CT because he is unable to lay flat due to his spondylitis. UA was postive and UDS showed opiates and benzos. He was given Narcan x2 with no appreciable response. He was given another round of Narcan which helped some. Patient at this point waking up some but drift off frequently. Home Medications Medication Instructions Recorded Confirmed Type Imipramine HCl 25 mg PO DAILY 02/20/17 04/11/17 History Levothyroxine Tab [Synthroid Tab] 100 mcg PO DAILY 02/20/17 04/11/17 History Potassium Chloride Liquid 15 ml PO BID 02/20/17 04/11/17 History Theophylline ER Tab 300 mg PO Q12H 02/20/17 04/11/17 History Bisoprolol [Zebeta] 5 mg PO DAILY tablet 03/02/17 04/11/17 Rx Folic Acid Tab 1 mg PO DAILY tablet 03/02/17 04/11/17 Rx Lidocaine 5% Patch [Lidoderm 5% 1 patch TRANSDERM DAILY patch 03/02/17 Rx Patch] Multivitamin (Centrum) [Centrum 1 tablet PO DAILY tablet 03/02/17 04/11/17 Rx Tab] Thiamine Tab [Vitamin B1 Tab] 100 mg PO DAILY tablet 03/02/17 04/11/17 Rx amLODIPine [Norvasc] 10 mg PO DAILY tablet 03/02/17 04/11/17 Rx miSOPROStol [Cytotec] 200 mcg PO DAILY tablet 03/02/17 04/11/17 Rx HYDROcodone/ACETAMIN 10-325 [[place] 1 tablet PO TID PRN 03/14/17 04/11/17 History 10-325] Albuterol Sulfate [Albuterol Neb] 2.5 mg RESP TX TID 04/11/17 04/11/17 History Ascorbic Acid Tab [Vitamin C Tab] 500 mg PO DAILY 04/11/17 04/11/17 History Bisacodyl Tab [Dulcolax Tab] 5 mg PO DAILY PRN 04/11/17 04/11/17 History Clorazepate [Tranxene] 7.5 mg PO BID 04/11/17 04/11/17 History Furosemide Tab [Lasix Tab] 40 mg PO DAILY 04/11/17 04/11/17 History Ibuprofen Tab [Motrin Tab] 400 mg PO BID 04/11/17 04/11/17 History Lactulose Liquid [Chronulac] 30 ml PO BID 04/11/17 04/11/17 History Magnesium Hydroxide Susp [Milk of 30 ml PO DAILY PRN 04/11/17 04/11/17 History Magnesia] Methocarbamol Tab [Robaxin Tab] 1,000 mg PO TID 04/11/17 04/11/17 History Trazodone HCl 100 mg PO DAILY 04/11/17 04/11/17 History Zaleplon [Sonata] 10 mg PO DAILY 04/11/17 04/11/17 History fentaNYL [Fentanyl 50 mcg/hr Patch] 1 patch TRANSDERM Q3DAY 04/11/17 04/11/17 History Allergies Allergy/AdvReac Type Severity Reaction Status Date / Time codeine Allergy Unknown UNRESPONSIV Verified 04/12/17 00:48 E acetaminophen [From Percocet] Allergy Verified 04/12/17 00:48 escitalopram [From Lexapro] Allergy Verified 04/12/17 00:48 gabapentin [From Neurontin] Allergy Verified 04/12/17 00:48 Hydromorphone [From Dilaudid] Allergy Verified 04/12/17 00:48 Oxycodone [From Percocet] Allergy Verified 04/12/17 00:48 ROS unobtainable: due to mental status Medical,Surgical,& Family Hx - Medical History Cardio: History of: Hypertension, Pacemaker (Dual-chamber on February 28, 2007) Psychological: History of: Anxiety Disorders, Depression Neurology: History of: Vertigo HEENT: History of: Eye Problem (WEARS GLASSES, NEAR SIGHTED, CATARACT LEFT EYE) Respiratory: History of: Bronchitis, COPD, Intubation, Pulmonary Hypertension, Pneumonia Genitourinary: History of: Prostate Problems (PROSTATE CA) Gastrointestinal: History of: Gastrointestinal Bleed, Hemorrhoids Musculoskeletal: History of: Back/Neck Problems, Degenerative Disk Disease, Herniated Disk, Musculoskeletal Problems (suspected MS, fx T-) Other: History of: Miscellaneous Medical Problems (ankylosing spondylitis) - Surgical History Cardiac Surgeries: Patient Denies: Femoral-Popliteal Bypass Graft, Cardiac Catheterization, Cardiac Surgery, Carotid Endarterectomy, Internal Defibrillator, Vascular Access Devices Thoracic Surgeries: Patient denies;: Organ Transplant Neurologic Surgeries: Patient denies: Neurologic Surgery HEENT Surgeries: Surgical HX of: Tonsilectomy & Adenoidectomy Patient denies: Carotid Endarterectomy Abdominal Surgeries: Patient denies: Abdominal Surgery, Splenectomy Reproductive Surgeries: Surgical HX of;: Genitourinary Surgery, Prostate Surgery (PROSTATECTOMY) Orthopedic Surgeries: Surgical HX of;: Orthopedic Surgery (RIGHT ANKLE FRACTURE) - Family History Family History: Reports;: Family Cancer (FATHER (TESTICULAR CA)), Family Diabetes (FATHER), Family Heart Disease (MOTHER), Family Hypertension - Social History Smoking Status: Former smoker Frequency of Alcohol Use: Occasionally Type of Drug Use: None Exam - Constitutional Vitals: Period Temp Pulse Resp BP Sys/Ivey Pulse Ox Last 24 Hr 97.8 F-98.6 F 96-109 18-33 104-156/60-95 83-100 Exam: GENERAL: Patient is in no acute distress. NECK: Neck is supple. There is no JVD. No carotid bruits present. No thyroid masses. CVS: First and second heart sounds are normal. There is no S3 present. Regular rate and rhythm. RESPIRATORY: Lungs are clear to auscultation without any rales or rhonchi. ABDOMEN: Soft and non-tender. Bowel sounds are present. There is no hepatosplenomegaly. EXT: There is no palpable edema. Peripheral pulses are present. Skin: No rashes Central Nervous system: General: Very sleepy Speech: Fluent Comprehension: Impaired Facial expressions: Normal Cranial Nerves: Pupils are sluggish but reactive. Doll's head eye movements are positive. No facial asymmetry seen. Motor: Paraplegia but strength cannot be assessed today. Sensory: Cannot be assessed Reflexes: Absent and symmetrical Cerebellar function: Not be assessed Toes: Equivocal Gait: Cannot be assessed Results - Labs CBC & BMP: 04/12/17 05:21 04/12/17 05:21 Assessment and Plan (1) Altered mental status Status: Acute Assessment and plan: Sounded like medication induced encephalopathy/side effects. Would hold off any further intervention at this time Continue watchful observation for another 24 hour Okay to continue Lidoderm patch only for pain management Thank you for the consult Current Visit: Yes
[2017-04-12] MEDS: INSULIN REGULAR 100 UNIT/ML SUBCUT SCH (17:43)
[2017-04-13] MEDS: INSULIN REGULAR 100 UNIT/ML SUBCUT SCH ×5 (00:50→23:53)
[2017-04-13] MEDS: CLINDAMYCIN INJ 300 MG in PREMIX 1 EACH IV SCH ×3 (01:33→17:25)
[2017-04-13] MEDS: METOPROLOL TARTRATE 5 MG/5 ML VIAL IV SCH ×2 (04:01→09:31)
[2017-04-13] MEDS: LEVOTHYROXINE 100 MCG TABLET PO SCH ×2 (06:11→09:23)
[2017-04-13 06:25] LABS: Basophils % 0.3 % (0.0-0.8); Hematocrit 35.5 VOL% (42.0-52.0); Hemoglobin 11.8 GM/DL (14.0-18.0); Immature Granulocytes % 1.4 %; Immature Granulocytes Absolute 0.17 #; Lymphocytes # 0.6 10*3/uL (1.4-4.0); Lymphocytes % 5.4 % (21.2-54.2); Mean Corpuscular HGB Conc 33.2 GM/DL (32-36); Mean Corpuscular Hemoglobin 33 PG (27-34); Mean Corpuscular Volume 100.3 FL (87-102); Mean Platelet Volume 11.9 FL (9.6-12.0); Monocytes # 1.2 10*3/uL (0.11-0.8); Monocytes % 9.8 % (1.7-12.7); Neutrophils # 9.9 10*3/uL (1.4-7.4); Neutrophils % 83.1 % (38.7-73.9); Platelet Count 222 T/CUMM (130-400); Red Blood Count 3.54 MC/CUMM (3.8-5.5); Red Cell Distribution Width 13.5 % (9.3-17.3)
[2017-04-13 06:47] LABS: Magnesium 2.3 MG/DL (1.8-2.4); Phosphorous 3.2 MG/DL (2.5-4.9); Prealbumin 10.3 MG/DL (20-40)
[2017-04-13 07:00] LABS: Osmolality,Calculated 288.7 MOS/KG (273-304); Potassium 3.6 MMOL/L (3.5-5.1)
[2017-04-13 07:03] LABS: Risk Ratio 3.45; VLDL CHOLESTEROL 21.6 MG/DL
[2017-04-13] MEDS: ALBUTEROL 2.5 MG/3 ML NEB RESP TX SCH ×3 (07:22→19:26)
--- NOTE | 2017-04-13 09:10 | Neurology Progress Note ---
Neurology - PN : Subjective Interval history: Mr. Fischer is a little better this morning. He is more alert and awake. He is following very simple commands to however he is quite delirious. This is all medication induced. Certainly it will take some time to get all the medications out of his system however withdrawal could be a issue. Exam (Progress Note) - Constitutional Vitals: Period Temp Pulse Resp BP Sys/Ivey Pulse Ox Last 24 Hr 97.9 F-98.6 F 99-109 17-33 109-149/60-95 88-100 Exam: GENERAL: Patient is in no acute distress. NECK: Neck is supple. There is no JVD. No carotid bruits present. No thyroid masses. CVS: First and second heart sounds are normal. There is no S3 present. Regular rate and rhythm. RESPIRATORY: Lungs are clear to auscultation without any rales or rhonchi. ABDOMEN: Soft and non-tender. Bowel sounds are present. There is no hepatosplenomegaly. EXT: There is no palpable edema. Peripheral pulses are present. Skin: No rashes Central Nervous system: General: Awake and alert Speech: Mumbling however following commands Comprehension: Fair Facial expressions: Normal Cranial Nerves: Pupils are sluggish but reactive. Doll's head eye movements are positive. No facial asymmetry seen. Motor: Paraplegia but strength cannot be assessed today. Sensory: Cannot be assessed Reflexes: Absent and symmetrical Cerebellar function: Not be assessed Toes: Equivocal Gait: Cannot be assessed Results - Labs CBC & BMP: 04/13/17 05:47 04/13/17 05:47 Assessment and Plan (1) Altered mental status Status: Acute Assessment and plan: Sounded like medication induced encephalopathy/side effects. Okay to put him back on fentanyl 25 mg patch along with continue Tranxene Hold off to do deseryl and [place] Current Visit: Yes
[2017-04-13] MEDS: ASCORBIC ACID 500 MG TABLET PO SCH (09:23)
[2017-04-13] MEDS: MULTIVITAMIN (CENTRUM) TABLET PO SCH (09:23)
[2017-04-13] MEDS: BISOPROLOL 5 MG TABLET PO SCH (09:23)
[2017-04-13] MEDS: THIAMINE 100 MG TABLET PO SCH (09:23)
[2017-04-13] MEDS: FOLIC ACID 1 MG TABLET PO SCH (09:23)
[2017-04-13] MEDS: THEOPHYLLINE ER 300 MG TABLET PO SCH ×2 (09:23→20:34)
[2017-04-13] MEDS: DESITIN 4OZ/NYSTATIN 15 GRAM MIXTURE PASTE TOP SCH ×2 (09:24→20:34)
[2017-04-13] MEDS: LIDOCAINE 5% PATCH TRANSDERM SCH (09:24)
--- NOTE | 2017-04-13 09:40 | Pulmonology Progress Note ---
Pulmonary - PN: Subj Interval history: This is a 66-year-old white male longtime patient of mine. I saw this patient consultation on 04/12/2017. My impressions were. 1. Acute CVA. Speech and right body appear to be involved. 2. Altered mental status. Most likely secondary to #1. CT scan of the brain is pending 3. Ankylosing spondylitis and probable spinal stenosis. Anatomy and pain limit mobility. 4. Past history of T9 compression fracture requiring kyphosis. October 2013. 5. Peripheral sensory neuropathy. Symptoms are gradually worsened over time. 6. Chronic venous stasis of the lower extremities. Improved 7. Vitamin B12 deficiency. On replacement 8. Past history tobacco abuse. None now. 9. COPD/asthma 10. Past history of high blood pressure 11. Hypothyroidism. On replacement 12. Hyperlipidemia 13. Past history of prostate cancer. Resected. No evidence of recurrence 14. See past. 15. Dual-chamber cardiac pacer 16. Acute urinary tract infection. Gram-positive cocci 04/13/2017. Patient was seen along with his . Later I discussed the case with Dr. Beatty and we coordinated our care. Patient's having hallucinations. He still does not move his right side well and his speech seems to be off. CT of his brain was negative. Ultrasounds of the carotid showed disease but not severe. Patient has slipped in the atrial fib.I had him on Lopressor. I will change back to his home medicine. zebet which is a beta-shana. She is concerned about drug withdrawal. Will restart fentanyl at 25 mcg which is one half the previous dose and will restart Tranxene at 7.5 mg twice daily. Note the patient was previously on does a real 100 mg daily, Amorita 10, 3 times a day, Sonata 10 mg daily, Robaxin thousand milligrams 3 times daily, lidocaine patch, imipramine 25 mg daily. These have not been continued. Other medicines such as his thyroid medicine were restarted today. Patient been evaluated by speech therapy and he is okay for a pured diet. He is also being seen by occupational therapy and physical therapy. Microbiology shows a gram-positive cocci growing from the urine. ID is still pending. White count is 12,000 with 83 segs. H&H is stable 11.8/35.5 and platelets are 222,000. Electrolytes are normal. Creatinine is 0.4 and BUN is 15. Echocardiogram shows ejection fraction of 60%. Mild mitral regurgitation and mild aortic insufficiency. Physical exam. Vital signs. See below Psychiatric. Confused. Able to say a few words such as delete. Neurologic. Speech is not clear. Patient has decreased movement and strength in his left upper extremity and left lower extremity. Chest. Clear Heart irregular at 80/min Abdomen. Rare bowel sounds Lower extremities. Very little edema Neck. Symmetrical with decreased range of motion secondary to ankylosing spondylitis Lymphatics. No submandibular cervical supraclavicular or epitrochlear adenopathy The remainder the physical exam is noncontributory Plan. 04/12/2070 1. Neurology consultation 2. CT of the head 3. Make a decision about anticoagulation as soon as possible 4. Ultrasounds of the carotids 5. Echocardiogram. Look for source of emboli 6. Consult physical therapy, Occupational Therapy and speech therapy 7. Double antibiotic coverage for gram-positive urinary tract infection until ID is known 8. Dr. Nelson and I have reviewed and discussed the case and we have coordinated our care. 9. Keep O2 sats 93% or above. Patient's a mild CO2 retainer but does not appear that he is going to be very sensitive to FiO2's unless he has a lot of neuro suppressive medications on board. 10. See orders Home Medications 04/13/2017 1. Atrial fib. Has a pacer. Consult cardiology. 2. Restart Tranxene and half dose fentanyl 3. Nicholls urine cultures is pending 4. See order Exam (Progress Note) - Constitutional Vitals: Period Temp Pulse Resp BP Sys/Ivey Pulse Ox Last 24 Hr 97.9 F-98.6 F 99-109 17-33 109-149/60-95 88-100 Results - Labs CBC & BMP: 04/13/17 05:47 04/13/17 05:47
[2017-04-13] MEDS ORDERED: CLORAZEPATE 7.5 MG TABLET PO SCH (10:00)
[2017-04-13] MEDS: CEFEPIME 500 MG in SODIUM CHLORIDE 0.9% 100 ML IV SCH ×2 (10:10→21:17)
[2017-04-13] MEDS: miSOPROStol 200 MCG TABLET PO SCH (10:44)
[2017-04-13] MEDS: LACTULOSE 20 GM/30 ML UDCUP PO SCH ×2 (10:44→20:34)
[2017-04-13] MEDS: fentaNYL 25 MCG/HR PATCH TRANSDERM SCH (10:44)
--- NOTE | 2017-04-13 11:14 | Hospitalist Progress Note ---
Assessment and Plan (1) Ankylosing spondylitis Status: Chronic Current Visit: No (2) Ankylosing spondylitis Status: Chronic Current Visit: Yes Qualifiers: Ankylosing spondylitis location: multiple sites in spine Qualified Code(s) : M45.0 - Ankylosing spondylitis of multiple sites in spine (3) Altered mental status Status: Acute Assessment and plan: CT head without acute process Neurology assisting Patient takes multiple pain medications, held on admission Slowly being restarted by Dr. Ramírez Pain medicine consulted Current Visit: Yes (4) HTN (hypertension) Status: Acute Current Visit: Yes (5) Urinary tract infection Status: Acute Assessment and plan: Continue abx Urine cultures growing gram positive cocci so far Current Visit: Yes Hospitalist: Subjective Interval history: No acute events overnight. This morning patient appears to be resting comfortably. He is quite drowsy. Exam - Constitutional Vitals: Period Temp Pulse Resp BP Sys/Ivey Pulse Ox Last 24 Hr 97.9 F-98.6 F 99-111 17-33 109-149/60-91 88-100 General appearance: over weight - Head Head exam: Present: normocephalic, atraumatic - Eye Eye exam: Present: EOMI Pupils: Present: SAMSON - ENT ENT exam: Present: normal exam - Neck Neck exam: Present: normal inspection - Respiratory Respiratory exam: Present: clear to auscultation bilaterally. Absent: wheezes - Cardiovascular Cardiovascular exam: Present: regular rate and rhythm - GI/Abdominal GI/Abdominal exam: Present: normal bowel sounds, soft. Absent: tenderness, rebound - Extremities Exam Extremities exam: Present: normal inspection - Back Exam Back exam: Present: normal inspection - Neurological Exam Neurological exam: Present: other (drowsy) - Psychiatric Psychiatric exam: Present: normal affect, normal mood - Skin Skin exam: Present: warm, intact Results - Labs CBC & BMP: 04/13/17 05:47 04/13/17 05:47
--- NOTE | 2017-04-13 17:43 | Pain Management Consult Note ---
Assessment and Plan (1) Ankylosing spondylitis Problem details: Spinal pain secondary to ankylosing spondylitis Status: Chronic Assessment and plan: 04/13/2017. The patient is a very interesting 66-year-old male who is accompanied by his . History from his since he is noncommunicative. The patient unfortunately has multiple medical problems and for the past 2 days has been noncommunicative and not following commands upon my exam. He has a long history of spinal pain secondary to ankylosing spondylitis as well as a peripheral neuropathy with lower extremity weakness. He recently was at [facility] going to rehab. On my exam he would not follow commands and could not communicate with me. I saw no spontaneous movement of the lower extremities and very little spontaneous movement of upper extremities. According to the patient's much of this has been slowly progressive over time rather than abrupt. There is some question whether or not the patient's polypharmacy is playing a role in his confusion and and overall weakness. At this point I agree with the approach of cutting back on the opioids. Cutting back the Duragesic from 50 to 25 mcg is an excellent idea and should also help avoid withdrawal symptomatology. At this point since he cannot communicate pain I would not give him in the as needed's until we can establish that he has true breakthrough pain. Will cut back on the Tranxene at this time as well. The patient was on a relatively high dose of Robaxin according the while at the jail and this has been eliminated. Will consider adjusting medicines going forward depending on his mental status however he will not be on the same type of medicines for pain as he was prior to this episode. I will continue to follow with you and help care for this very pleasant gentleman. y Current Visit: Yes Qualifiers: Ankylosing spondylitis location: multiple sites in spine Qualified Code(s) : M45.0 - Ankylosing spondylitis of multiple sites in spine History of Present Illness Chief complaint: Back pain History of present illness: Mr. Fischer is a 66 year old male with multiple medical problems who is now nonverbal and not moving. His communicated his history to me. He has a long history of spinal pain related to ankylosing spondylitis as well as lower extremity pain secondary to her peripheral neuropathy. Until 3 days ago he [facility] and while there became confused and noncommunicative. She states that he has a aching pain in the back as well as burning pain in the legs. He has been on multiple medicines from multiple prescribers for the pain. Home Medications Medication Instructions Recorded Confirmed Type Imipramine HCl 25 mg PO DAILY 02/20/17 04/11/17 History Levothyroxine Tab [Synthroid Tab] 100 mcg PO DAILY 02/20/17 04/11/17 History Potassium Chloride Liquid 15 ml PO BID 02/20/17 04/11/17 History Theophylline ER Tab 300 mg PO Q12H 02/20/17 04/11/17 History Bisoprolol [Zebeta] 5 mg PO DAILY tablet 03/02/17 04/11/17 Rx Folic Acid Tab 1 mg PO DAILY tablet 03/02/17 04/11/17 Rx Lidocaine 5% Patch [Lidoderm 5% 1 patch TRANSDERM DAILY patch 03/02/17 Rx Patch] Multivitamin (Centrum) [Centrum 1 tablet PO DAILY tablet 03/02/17 04/11/17 Rx Tab] Thiamine Tab [Vitamin B1 Tab] 100 mg PO DAILY tablet 03/02/17 04/11/17 Rx amLODIPine [Norvasc] 10 mg PO DAILY tablet 03/02/17 04/11/17 Rx miSOPROStol [Cytotec] 200 mcg PO DAILY tablet 03/02/17 04/11/17 Rx HYDROcodone/ACETAMIN 10-325 [[place] 1 tablet PO TID PRN 03/14/17 04/11/17 History 10-325] Albuterol Sulfate [Albuterol Neb] 2.5 mg RESP TX TID 04/11/17 04/11/17 History Ascorbic Acid Tab [Vitamin C Tab] 500 mg PO DAILY 04/11/17 04/11/17 History Bisacodyl Tab [Dulcolax Tab] 5 mg PO DAILY PRN 04/11/17 04/11/17 History Clorazepate [Tranxene] 7.5 mg PO BID 04/11/17 04/11/17 History Furosemide Tab [Lasix Tab] 40 mg PO DAILY 04/11/17 04/11/17 History Ibuprofen Tab [Motrin Tab] 400 mg PO BID 04/11/17 04/11/17 History Lactulose Liquid [Chronulac] 30 ml PO BID 04/11/17 04/11/17 History Magnesium Hydroxide Susp [Milk of 30 ml PO DAILY PRN 04/11/17 04/11/17 History Magnesia] Methocarbamol Tab [Robaxin Tab] 1,000 mg PO TID 04/11/17 04/11/17 History Trazodone HCl 100 mg PO DAILY 04/11/17 04/11/17 History Zaleplon [Sonata] 10 mg PO DAILY 04/11/17 04/11/17 History fentaNYL [Fentanyl 50 mcg/hr Patch] 1 patch TRANSDERM Q3DAY 04/11/17 04/11/17 History Allergies Allergy/AdvReac Type Severity Reaction Status Date / Time codeine Allergy Unknown UNRESPONSIV Verified 04/12/17 00:48 E acetaminophen [From Percocet] Allergy Verified 04/12/17 00:48 escitalopram [From Lexapro] Allergy Verified 04/12/17 00:48 gabapentin [From Neurontin] Allergy Verified 04/12/17 00:48 Hydromorphone [From Dilaudid] Allergy Verified 04/12/17 00:48 Oxycodone [From Percocet] Allergy Verified 04/12/17 00:48 Medical,Surgical,& Family Hx - Medical History Cardio: History of: Hypertension, Pacemaker (Dual-chamber on February 28, 2007) Psychological: History of: Anxiety Disorders, Depression Neurology: History of: Vertigo HEENT: History of: Eye Problem (WEARS GLASSES, NEAR SIGHTED, CATARACT LEFT EYE) Respiratory: History of: Bronchitis, COPD, Intubation, Pulmonary Hypertension, Pneumonia Genitourinary: History of: Prostate Problems (PROSTATE CA) Gastrointestinal: History of: Gastrointestinal Bleed, Hemorrhoids Musculoskeletal: History of: Back/Neck Problems, Degenerative Disk Disease, Herniated Disk, Musculoskeletal Problems (suspected MS, fx T-) Other: History of: Miscellaneous Medical Problems (ankylosing spondylitis) - Surgical History Cardiac Surgeries: Patient Denies: Femoral-Popliteal Bypass Graft, Cardiac Catheterization, Cardiac Surgery, Carotid Endarterectomy, Internal Defibrillator, Vascular Access Devices Thoracic Surgeries: Patient denies;: Organ Transplant Neurologic Surgeries: Patient denies: Neurologic Surgery HEENT Surgeries: Surgical HX of: Tonsilectomy & Adenoidectomy Patient denies: Carotid Endarterectomy Abdominal Surgeries: Patient denies: Abdominal Surgery, Splenectomy Reproductive Surgeries: Surgical HX of;: Genitourinary Surgery, Prostate Surgery (PROSTATECTOMY) Orthopedic Surgeries: Surgical HX of;: Orthopedic Surgery (RIGHT ANKLE FRACTURE) - Family History Family History: Reports;: Family Cancer (FATHER (TESTICULAR CA)), Family Diabetes (FATHER), Family Heart Disease (MOTHER), Family Hypertension - Social History Smoking Status: Former smoker Frequency of Alcohol Use: Occasionally Type of Drug Use: None ROS unobtainable: due to mental status Exam - Constitutional Vitals: Period Temp Pulse Resp BP Sys/Ivey Pulse Ox Last 24 Hr 97.6 F-98.6 F 87-111 17-28 109-132/60-71 94-99 General appearance: normal weight - GI/Abdominal GI/Abdominal exam: Present: soft - Back Exam Back exam: Present: vertebral tenderness - Neurological Exam Neurological exam: Present: altered, motor sensory deficit Speech: Present: abnormal - Skin Skin exam: Present: warm Results - Labs CBC & BMP: 04/13/17 05:47 04/13/17 05:47
--- NOTE | 2017-04-13 17:52 | Cardiology Consult Note ---
Jose Houston Vanessa RN, am scribing for, and in the presence of, Dana Blake DO 17 :50. Assessment and Plan - Time spent with patient Time spent with patient: Greater than 30 minutes (Due to assessment, planning, documentation, and medication review) (1) Altered mental status Status: Acute Current Visit: Yes (2) Urinary tract infection Status: Acute Assessment and plan: Urine culture with gram positive cocci. He is receiving appropriate IV antibiotics. Final culture pending. Current Visit: Yes (3) Debility Status: Chronic Assessment and plan: PT and OT have been consulted. Current Visit: Yes (4) HTN (hypertension) Status: Chronic Assessment and plan: Blood pressures have been overall well controlled. Continue as present. Current Visit: Yes (5) Ankylosing spondylitis Status: Chronic Assessment and plan: History of severe ankylosing spondylitis. He follows routinely with Dr. Hoskins and his PCP Dr. Ramírez. Current Visit: Yes Qualifiers: Ankylosing spondylitis location: multiple sites in spine Qualified Code(s) : M45.0 - Ankylosing spondylitis of multiple sites in spine (6) COPD (chronic obstructive pulmonary disease) Status: Chronic Assessment and plan: Appears stable at this time. Defer management to pulmonary. Current Visit: Yes (7) Peripheral neuropathy Status: Chronic Assessment and plan: This has responded well to medical therapy in the past. Current Visit: Yes (8) Chronic venous insufficiency Status: Chronic Current Visit: No (9) Hyperlipidemia Status: Chronic Assessment and plan: Continue current plan of care. FLP this admission unremarkable. Current Visit: No (10) Hypothyroidism Status: Chronic Assessment and plan: Continue Synthroid. Current Visit: No History of Present Illness - Data of Consult Patient: known to practice within the last 3 years Consult date: 04/13/17 Requesting Physician: Bala Ramírez Primary care physician: Bala Ramírez - Consult Narrative Reason for consult: atrial fibrillation, altered mental status r/o CVA History of present illness: PRIMARY ROOM SERVICE WAITER: DR. HOPKINS Mr. Fischer is a 66 year old white male with risk factor significant for: hypertension, sedentary lifestyle, previous history of CAD, and he is a former smoker. Past medical history includes severe ankylosing spondylitis, hypothyroidism, pulmonary hypertension, COPD, chronic venous insufficiency, and chronic pain. Patient was recently admitted for intractable back pain due to his ankylosing spondylitis in February 2017. During hospitalization, he had an echo echocardiogram demonstrated mild LVH, diastolic dysfunction, EF 50-55%. He was also noted to have some bradycardia and pauses with telemetry monitoring , and subsequent Holter monitoring revealed episodes of bradycardia with complete AV dissociation, third-degree AVB. He had a dual-chamber pacemaker implanted on February [address] Hopkins. After other medical issues resolved, patient was discharged to swing bed for continued rehab therapy and then to [facility] facility. Patient was seen at [facility] on March 22 for follow-up and pacemaker check. Pacemaker site was healing well, and interrogation revealed appropriate device function with device and leads stable. Patient has done relatively well, but he did present to [facility] ED via EMS on April 11 with acute altered mental status after patient's had spoken with patient on the phone, and she noted that he sounded very confused and not liking normal self. Upon arrival to the ER, patient was basically unresponsive, very drowsy, and it was noted that he had recently started antibiotic treatment for a UTI which reported she thought had been initiated at least [address] of the head showed no acute abnormality. He received Narcan while in the ER without much improvement. Patient was admitted for further observation and evaluate for source of altered mental status-acute CVA versus medication induced encephalopathy/side effects. Cardiology has been asked to see due to concern for atrial fibrillation. Since admission, urine culture shows gram-positive cocci, and he has been placed on appropriate IV antibiotics. Carotid Doppler ultrasound shows 50-79% stenosis of left ICA with less than 50% right ICA stenosis. Patient seen and examined. Patient's is present with him at bedside this afternoon. Patient is confused, he will make eye contact with you, speaks random words, and has some left-sided weakness. Patient's reports he has been doing relatively well. He has not reported any chest pain, shortness of breath, or anginal complaint. EKG and quality assurance monitor strips reviewed. There is no evidence of dysrhythmia. The patient had interrogation of his recently placed pacemaker it is functioning well. There was one brief period of SVT. He has not had any atrial fibrillation based on his pacemaker interrogation. Normality to suggest contribution his altered mental status. His overall cardiac status appears stable. I have nothing further to add at this time. If further assistance is needed please do not hesitate to call. I will sign off at this time. CC: Eusebio Hamilton MD - Home Medications and Allergies Home Medications: Home Medications Medication Instructions Recorded Confirmed Type Imipramine HCl 25 mg PO DAILY 02/20/17 04/11/17 History Levothyroxine Tab [Synthroid Tab] 100 mcg PO DAILY 02/20/17 04/11/17 History Potassium Chloride Liquid 15 ml PO BID 02/20/17 04/11/17 History Theophylline ER Tab 300 mg PO Q12H 02/20/17 04/11/17 History Bisoprolol [Zebeta] 5 mg PO DAILY tablet 03/02/17 04/11/17 Rx Folic Acid Tab 1 mg PO DAILY tablet 03/02/17 04/11/17 Rx Lidocaine 5% Patch [Lidoderm 5% 1 patch TRANSDERM DAILY patch 03/02/17 Rx Patch] Multivitamin (Centrum) [Centrum 1 tablet PO DAILY tablet 03/02/17 04/11/17 Rx Tab] Thiamine Tab [Vitamin B1 Tab] 100 mg PO DAILY tablet 03/02/17 04/11/17 Rx amLODIPine [Norvasc] 10 mg PO DAILY tablet 03/02/17 04/11/17 Rx miSOPROStol [Cytotec] 200 mcg PO DAILY tablet 03/02/17 04/11/17 Rx HYDROcodone/ACETAMIN 10-325 [[place] 1 tablet PO TID PRN 03/14/17 04/11/17 History 10-325] Albuterol Sulfate [Albuterol Neb] 2.5 mg RESP TX TID 04/11/17 04/11/17 History Ascorbic Acid Tab [Vitamin C Tab] 500 mg PO DAILY 04/11/17 04/11/17 History Bisacodyl Tab [Dulcolax Tab] 5 mg PO DAILY PRN 04/11/17 04/11/17 History Clorazepate [Tranxene] 7.5 mg PO BID 04/11/17 04/11/17 History Furosemide Tab [Lasix Tab] 40 mg PO DAILY 04/11/17 04/11/17 History Ibuprofen Tab [Motrin Tab] 400 mg PO BID 04/11/17 04/11/17 History Lactulose Liquid [Chronulac] 30 ml PO BID 04/11/17 04/11/17 History Magnesium Hydroxide Susp [Milk of 30 ml PO DAILY PRN 04/11/17 04/11/17 History Magnesia] Methocarbamol Tab [Robaxin Tab] 1,000 mg PO TID 04/11/17 04/11/17 History Trazodone HCl 100 mg PO DAILY 04/11/17 04/11/17 History Zaleplon [Sonata] 10 mg PO DAILY 04/11/17 04/11/17 History fentaNYL [Fentanyl 50 mcg/hr Patch] 1 patch TRANSDERM Q3DAY 04/11/17 04/11/17 History Allergies/Adverse Reactions: Allergies Allergy/AdvReac Type Severity Reaction Status Date / Time codeine Allergy Unknown UNRESPONSIV Verified 04/12/17 00:48 E acetaminophen [From Percocet] Allergy Verified 04/12/17 00:48 escitalopram [From Lexapro] Allergy Verified 04/12/17 00:48 gabapentin [From Neurontin] Allergy Verified 04/12/17 00:48 Hydromorphone [From Dilaudid] Allergy Verified 04/12/17 00:48 Oxycodone [From Percocet] Allergy Verified 04/12/17 00:48 ROS unobtainable: due to mental status (The patient is unable to give any review of systems. The states that he has not had any cardiopulmonary complaints. No syncope) Medical,Surgical,& Family Hx - Medical History Cardio: History of: CAD, Hypertension, Pacemaker (Dual-chamber on February 28, 2007- Dr. Hopkins) No history of: [place], PVD Psychological: History of: Anxiety Disorders, Depression Neurology: History of: Vertigo HEENT: History of: Eye Problem (WEARS GLASSES, NEAR SIGHTED, CATARACT LEFT EYE) Endocrine: History of: Thyroid Disorder No history of: Diabetes Mellitus (IDDM), Diabetes Mellitus (NIDDM), Dyslipidemia Respiratory: History of: Bronchitis, COPD, Intubation, Pulmonary Hypertension, Pneumonia Renal: No history of: Renal Problems Genitourinary: History of: Prostate Problems (PROSTATE CA) Gastrointestinal: History of: Gastrointestinal Bleed, Hemorrhoids Musculoskeletal: History of: Back/Neck Problems, Degenerative Disk Disease, Herniated Disk, Musculoskeletal Problems (suspected MS, fx T-) Other: History of: Cancer, Miscellaneous Medical Problems (ankylosing spondylitis) - Surgical History Cardiac Surgeries: Patient Denies: Femoral-Popliteal Bypass Graft, Cardiac Catheterization, Cardiac Surgery, Carotid Endarterectomy, Internal Defibrillator, Vascular Access Devices Thoracic Surgeries: Patient denies;: Organ Transplant Neurologic Surgeries: Patient denies: Neurologic Surgery HEENT Surgeries: Surgical HX of: Tonsilectomy & Adenoidectomy Patient denies: Carotid Endarterectomy Abdominal Surgeries: Patient denies: Abdominal Surgery, Splenectomy Reproductive Surgeries: Surgical HX of;: Genitourinary Surgery, Prostate Surgery (PROSTATECTOMY) Orthopedic Surgeries: Surgical HX of;: Orthopedic Surgery (RIGHT ANKLE FRACTURE) - Family History Family History: Reports;: Family Cancer (FATHER (TESTICULAR CA)), Family Diabetes (FATHER), Family Heart Disease (MOTHER), Family Hypertension - Social History Smoking Status: Former smoker Frequency of Alcohol Use: Occasionally Type of Drug Use: None Marital Status: Lives With:: Spouse Functional capacity: independent ambulation Physical Examination Vital Signs Temp Pulse Resp BP Pulse Ox 98.5 F 101 H 18 108/73 92 L 04/11/17 17:53 04/11/17 17:53 04/11/17 17:53 04/11/17 17:53 04/11/17 17:53 Neck: Present: Midline Trachea, No Bruit Cardiac: Present: Reg Rate and Rhythm, No Murmur, Tachycardia, Other (Pacer site looks good it is nontender and is not inflamed and there is no fluctuance incision is well-healed). Absent: Bradycardia Lungs: Present: Clear Ascult./Percussion, Decreased Breath Sounds, No Wheeze, Rales, Rhonchi Neuro: Present: Weakness (Left side), Grossly Intact. Absent: Numbness, Resting Tremor, Essential Tremor Abdomen: Present: Soft, Active Bowel Sounds, No Masses. Absent: Ascites, Tender , Firm, Distended Skin: Present: Clear. Absent: Rash, Suspicious Lesions, Bruising Musculoskeletal: Present: Decreased Range of Motion Extremities: Present: No Clubbing, No Cyanosis, Normal Upper Extr. Pulses (3+ bilateral), Normal Lower Extr. Pulses (1-2+ bilaterally), Capillary Refill ( Normal), Other (Warm, dry; venous stasis bilateral lower extremities) Result/EKG - Labs CBC & BMP: 04/13/17 05:47 04/13/17 05:47 Lab Results: I have reviewed the past 24 hour labs Labs: Laboratory Results - last 24 hr 04/12/17 04/13/17 04/13/17 17:35 00:06 05:47 WBC 12.0 RBC 3.54 L Hgb 11.8 L Hct 35.5 L MCV 100.3 MCH 33 MCHC 33.2 RDW 13.5 Plt Count 222 MPV 11.9 Neut % (Auto) 83.1 H Lymph % (Auto) 5.4 L [place] % (Auto) 9.8 Eos % (Auto) 0.0 Baso % (Auto) 0.3 Neut # (Auto) 9.9 H Lymph # (Auto) 0.6 L [place] # (Auto) 1.2 H Eos # (Auto) 0.0 Baso # (Auto) 0.0 Immature Gran % 1.4 Nucleated RBC % 0.0 Immature Gran # 0.17 Nucleated RBCs # 0.00 Sodium Potassium Chloride Carbon Dioxide Anion Gap BUN Creatinine GFR Calculation BUN/Creatinine Ratio Glucose POC Glucose 128 H 128 H Calculated Osmolality Calcium Phosphorus Magnesium Prealbumin Triglycerides Cholesterol LDL Cholesterol VLDL Cholesterol HDL Cholesterol Heart Disease Risk Ratio 04/13/17 04/13/17 04/13/17 05:47 05:47 05:47 WBC RBC Hgb Hct MCV MCH MCHC RDW Plt Count MPV Neut % (Auto) Lymph % (Auto) [place] % (Auto) Eos % (Auto) Baso % (Auto) Neut # (Auto) Lymph # (Auto) [place] # (Auto) Eos # (Auto) Baso # (Auto) Immature Gran % Nucleated RBC % Immature Gran # Nucleated RBCs # Sodium 145 Potassium 3.6 Chloride 106 Carbon Dioxide 31 Anion Gap 11.6 BUN 15 Creatinine 0.40 L GFR Calculation 175 BUN/Creatinine Ratio 37.00 H Glucose 100 POC Glucose Calculated Osmolality 288.7 Calcium 9.0 Phosphorus 3.2 Magnesium 2.3 Prealbumin 10.3 L Triglycerides 108 Cholesterol 200 LDL Cholesterol 128.0 VLDL Cholesterol 21.6 HDL Cholesterol 58 Heart Disease Risk Ratio 3.45 04/13/17 06:11 WBC RBC Hgb Hct MCV MCH MCHC RDW Plt Count MPV Neut % (Auto) Lymph % (Auto) [place] % (Auto) Eos % (Auto) Baso % (Auto) Neut # (Auto) Lymph # (Auto) [place] # (Auto) Eos # (Auto) Baso # (Auto) Immature Gran % Nucleated RBC % Immature Gran # Nucleated RBCs # Sodium Potassium Chloride Carbon Dioxide Anion Gap BUN Creatinine GFR Calculation BUN/Creatinine Ratio Glucose POC Glucose 118 H Calculated Osmolality Calcium Phosphorus Magnesium Prealbumin Triglycerides Cholesterol LDL Cholesterol VLDL Cholesterol HDL Cholesterol Heart Disease Risk Ratio - Diagnostic Findings Procedure: Chest x-ray: image reviewed by me, report reviewed by me - EKG EKG results: interpreted by me, no acute changes Lou Houston Shea, DO, personally performed the services described in this documentation, ascribed by Jojo Garcia RN in my presence, and it is both accurate and complete 752 .
[2017-04-13] MEDS: SODIUM CHLORIDE 0.9% 1,000 ML IV SCH (18:36)
[2017-04-13] MEDS: CLORAZEPATE 3.75 MG TABLET PO SCH (20:34)
[2017-04-14] MEDS: CLINDAMYCIN INJ 300 MG in PREMIX 1 EACH IV SCH ×2 (00:05→09:10)
[2017-04-14 06:05] LABS: Basophils # 0.1 10*3/uL (0.0-0.2); Basophils % 0.5 % (0.0-0.8); Eosinophils % 0.2 % (0.00-10.9); Hematocrit 33.5 VOL% (42.0-52.0); Hemoglobin 11.1 GM/DL (14.0-18.0); Immature Granulocytes % 1.8 %; Immature Granulocytes Absolute 0.18 #; Lymphocytes # 0.8 10*3/uL (1.4-4.0); Lymphocytes % 8.6 % (21.2-54.2); Mean Corpuscular HGB Conc 33.1 GM/DL (32-36); Mean Corpuscular Hemoglobin 33 PG (27-34); Mean Corpuscular Volume 100.6 FL (87-102); Mean Platelet Volume 11.2 FL (9.6-12.0); Monocytes # 1.2 10*3/uL (0.11-0.8); Monocytes % 12.1 % (1.7-12.7); Neutrophils # 7.5 10*3/uL (1.4-7.4); Neutrophils % 76.8 % (38.7-73.9); Platelet Count 191 T/CUMM (130-400); Red Blood Count 3.33 MC/CUMM (3.8-5.5); Red Cell Distribution Width 13.6 % (9.3-17.3); White Blood Count 9.8 T/CUMM (4-12)
[2017-04-14 06:34] LABS: Calcium 8.6 MG/DL (8.5-10.1); Magnesium 2.4 MG/DL (1.8-2.4); Osmolality,Calculated 293.4 MOS/KG (273-304); Potassium 3.1 MMOL/L (3.5-5.1)
[2017-04-14] MEDS: INSULIN REGULAR 100 UNIT/ML SUBCUT SCH ×3 (07:07→18:23)
[2017-04-14] MEDS: ALBUTEROL 2.5 MG/3 ML NEB RESP TX SCH ×3 (07:27→19:29)
[2017-04-14] MEDS: LEVOTHYROXINE 100 MCG TABLET PO SCH (07:34)
[2017-04-14] MEDS ORDERED: DEXTROSE 50% 25 GM/50 ML SYRINGE IV PRN (08:30)
[2017-04-14] MEDS: CLORAZEPATE 3.75 MG TABLET PO SCH ×2 (09:10→20:44)
[2017-04-14] MEDS: BISOPROLOL 5 MG TABLET PO SCH (09:10)
[2017-04-14] MEDS: ASCORBIC ACID 500 MG TABLET PO SCH (09:10)
[2017-04-14] MEDS: FOLIC ACID 1 MG TABLET PO SCH (09:10)
[2017-04-14] MEDS: miSOPROStol 200 MCG TABLET PO SCH (09:10)
[2017-04-14] MEDS: THEOPHYLLINE ER 300 MG TABLET PO SCH ×2 (09:10→20:44)
[2017-04-14] MEDS: MULTIVITAMIN (CENTRUM) TABLET PO SCH (09:10)
[2017-04-14] MEDS: THIAMINE 100 MG TABLET PO SCH (09:10)
[2017-04-14] MEDS: LACTULOSE 20 GM/30 ML UDCUP PO SCH (09:11)
[2017-04-14] MEDS: LIDOCAINE 5% PATCH TRANSDERM SCH (09:12)
[2017-04-14] MEDS: POTASSIUM CHLORIDE 20 MEQ TABLET PO PRN ×4 (09:34→18:13)
--- NOTE | 2017-04-14 10:02 | Pulmonology Progress Note ---
Pulmonary - PN: Subj Interval history: This is a 66-year-old white male longtime patient of mine. I saw this patient consultation on 04/12/2017. My impressions were. 1. Acute CVA. Speech and right body appear to be involved. 2. Altered mental status. Most likely secondary to #1. CT scan of the brain is pending 3. Ankylosing spondylitis and probable spinal stenosis. Anatomy and pain limit mobility. 4. Past history of T9 compression fracture requiring kyphosis. October 2013. 5. Peripheral sensory neuropathy. Symptoms are gradually worsened over time. 6. Chronic venous stasis of the lower extremities. Improved 7. Vitamin B12 deficiency. On replacement 8. Past history tobacco abuse. None now. 9. COPD/asthma 10. Past history of high blood pressure 11. Hypothyroidism. On replacement 12. Hyperlipidemia 13. Past history of prostate cancer. Resected. No evidence of recurrence 14. See past. 15. Dual-chamber cardiac pacer 16. Acute urinary tract infection. Gram-positive cocci 04/13/2017. Patient was seen along with his . Later I discussed the case with Dr. Beatty and we coordinated our care. Patient's having hallucinations. He still does not move his right side well and his speech seems to be off. CT of his brain was negative. Ultrasounds of the carotid showed disease but not severe. Patient has slipped in the atrial fib.I had him on Lopressor. I will change back to his home medicine. zebet which is a beta-shana. She is concerned about drug withdrawal. Will restart fentanyl at 25 mcg which is one half the previous dose and will restart Tranxene at 7.5 mg twice daily. Note the patient was previously on does a real 100 mg daily, [place] 10, 3 times a day, Sonata 10 mg daily, Robaxin thousand milligrams 3 times daily, lidocaine patch, imipramine 25 mg daily. These have not been continued. Other medicines such as his thyroid medicine were restarted today. Patient been evaluated by speech therapy and he is okay for a pured diet. He is also being seen by occupational therapy and physical therapy. Microbiology shows a gram-positive cocci growing from the urine. ID is still pending. White count is 12,000 with 83 segs. H&H is stable 11.8/35.5 and platelets are 222,000. Electrolytes are normal. Creatinine is 0.4 and BUN is 15. Echocardiogram shows ejection fraction of 60%. Mild mitral regurgitation and mild aortic insufficiency. 04/14/2017. Patient was seen along with his , Tuan Philip nurse practitioner, Mary Anne Jain RN. I appreciate Dr. Abel Patel's note from yesterday. Patient is still hallucinating but he is a little more alert and he makes facial comments and occasional verbal comments about what is being said by me and by his . This patient had been on long-term does not really this worked well for him. [facility] he was [facility] on Lexapro. I wonder if some of what we are seeing is serotonin syndrome. Patient is having some diarrhea. I have changed his lactulose to as needed. We will check his stools to make sure he does not have C. difficile. His urine has grown Enterococcus faecalis. I will treat this with IV amoxicillin based on the best GALLO. White blood cell count is 9800 with 77 segs and 9 lymphs. H& H is stable 11.1/33.5. Potassium is low at 3.1. Creatinine is 0.5 with a BUN of 17. Patient's on replacement protocol. Cardiology is seeing the patient and he is in a regular sinus rhythm. I appreciate their help. Patient is doing well from a pulmonary standpoint. We will ask physical therapy and Occupational Therapy to continue follow and treat the patient. Patient has a generalized symmetrical tremor which is most prominent in the upper extremity Physical exam. Vital signs. See below Psychiatric. Confused. Able to say a few words such as delete. Neurologic. Speech is clearer. Patient to move all 4 extremities. He has a generalized tremor which is most prominent in the upper extremities. The tremor is symmetric Chest. Clear Heart irregular at 80/min Abdomen. Rare bowel sounds Lower extremities. Very little edema Neck. Symmetrical with decreased range of motion secondary to ankylosing spondylitis Lymphatics. No submandibular cervical supraclavicular or epitrochlear adenopathy The remainder the physical exam is noncontributory Plan. 04/12/2070 1. Neurology consultation 2. CT of the head 3. Make a decision about anticoagulation as soon as possible 4. Ultrasounds of the carotids 5. Echocardiogram. Look for source of emboli 6. Consult physical therapy, Occupational Therapy and speech therapy 7. Double antibiotic coverage for gram-positive urinary tract infection until ID is known 8. Dr. Nelson and I have reviewed and discussed the case and we have coordinated our care. 9. Keep O2 sats 93% or above. Patient's a mild CO2 retainer but does not appear that he is going to be very sensitive to FiO2's unless he has a lot of neuro suppressive medications on board. 10. See orders Home Medications 04/13/2017 1. Atrial fib. Has a pacer. Consult cardiology. 2. Restart Tranxene and half dose fentanyl 3. [place] urine cultures is pending 4. See order 04/14/2017. 1. See today's note above. 2. Lexapro was added to the [facility] regimen [facility]. Could this be serotonin syndrome. 3. Change lactulose to as needed. 4. Stools for C. difficile number 5. Amoxicillin for Enterococcus faecalis urinary growth 6. See Exam (Progress Note) - Constitutional Vitals: Period Temp Pulse Resp BP Sys/Ivey Pulse Ox Last 24 Hr 97.6 F-99.5 F 85-109 18-21 106-130/61-72 94-97 Results - Labs CBC & BMP: 04/14/17 05:51 04/14/17 05:51
[2017-04-14 10:21] LABS: Free T4 (Free Thyroxine) 1.28 NG/DL (0.76-1.46); Thyroid Stimulating Hormone 0.971 uIU/ml (0.358-3.74)
[2017-04-14] MEDS: CEFEPIME 500 MG in SODIUM CHLORIDE 0.9% 100 ML IV SCH (10:34)
--- NOTE | 2017-04-14 10:39 | Hospitalist Progress Note ---
Assessment and Plan (1) Ankylosing spondylitis Status: Chronic Current Visit: Yes Qualifiers: Ankylosing spondylitis location: multiple sites in spine Qualified Code(s) : M45.0 - Ankylosing spondylitis of multiple sites in spine (2) Altered mental status Status: Acute Assessment and plan: CT head without acute process Neurology assisting Patient takes multiple pain medications, held on admission Slowly being restarted by Dr. Ramírez Pain medicine now helping Current Visit: Yes (3) HTN (hypertension) Status: Chronic Current Visit: Yes (4) Urinary tract infection Status: Acute Assessment and plan: Urine culture grew enterococcus faelcalis Started on ampicillin by pulmonary Will stop other antibiotics as no other known source of infection Current Visit: Yes Hospitalist: Subjective Interval history: No acute events overnight. Today reports diarrhea. She also reports an upper extremity tremor, which she first noticed when he was in the senior care before this most recent illness. She associates it with agitation. Denies urinary or bowel incontinence with the episode. She also denies confusion following the episodes. Today the patient is more awake for me. He does not speak but smiles and seems to follow the conversation. Exam - Constitutional Vitals: Period Temp Pulse Resp BP Sys/Ivey Pulse Ox Last 24 Hr 96.5 F-99.5 F 85-109 16-21 106-130/61-72 94-99 General appearance: over weight - Head Head exam: Present: normocephalic, atraumatic - Eye Eye exam: Present: EOMI Pupils: Present: SAMSON - ENT ENT exam: Present: normal exam - Neck Neck exam: Present: normal inspection - Respiratory Respiratory exam: Present: clear to auscultation bilaterally. Absent: rhonchi, wheezes - Cardiovascular Cardiovascular exam: Present: regular rate and rhythm - GI/Abdominal GI/Abdominal exam: Present: normal bowel sounds, soft. Absent: tenderness, rebound - Extremities Exam Extremities exam: Present: normal inspection - Back Exam Back exam: Present: normal inspection - Neurological Exam Neurological exam: Present: alert - Psychiatric Psychiatric exam: Present: normal affect, normal mood - Skin Skin exam: Present: warm, intact Results - Labs CBC & BMP: 04/14/17 05:51 04/14/17 05:51
--- NOTE | 2017-04-14 11:49 | Neurology Progress Note ---
Neurology - PN : Subjective Interval history: Patient is more alert and awake but is still not following commands. His speech is nonfluent at this point. However he is much better and has improved significantly in the last [address] Patel has been consulted. He is managing his pain medications. Exam (Progress Note) - Constitutional Vitals: Period Temp Pulse Resp BP Sys/Ivey Pulse Ox Last 24 Hr 96.5 F-99.5 F 85-109 16-21 106-130/61-72 94-99 Exam: GENERAL: Patient is in no acute distress. NECK: Neck is supple. There is no JVD. No carotid bruits present. No thyroid masses. CVS: First and second heart sounds are normal. There is no S3 present. Regular rate and rhythm. RESPIRATORY: Lungs are clear to auscultation without any rales or rhonchi. ABDOMEN: Soft and non-tender. Bowel sounds are present. There is no hepatosplenomegaly. EXT: There is no palpable edema. Peripheral pulses are present. Skin: No rashes Central Nervous system: General: Awake and alert Speech: Mumbling however following commands Comprehension: Fair Facial expressions: Normal Cranial Nerves: Pupils are sluggish but reactive. Doll's head eye movements are positive. No facial asymmetry seen. Motor: Paraplegia but strength cannot be assessed today. Sensory: Cannot be assessed Reflexes: Absent and symmetrical Cerebellar function: Not be assessed Toes: Equivocal Gait: Cannot be assessed Results - Labs CBC & BMP: 04/14/17 05:51 04/14/17 05:51 Assessment and Plan (1) Altered mental status Status: Acute Assessment and plan: medication induced encephalopathy/side effects. No further intervention needed from neuro standpoint at this time Current Visit: Yes
[2017-04-14] MEDS: AMPICILLIN INJ 1,000 MG in SODIUM CHLORIDE 0.9% 100 ML IV SCH ×2 (12:03→18:14)
--- NOTE | 2017-04-14 15:34 | Pain Management Progress Note ---
Assessment and Plan (1) Ankylosing spondylitis Problem details: Spinal pain secondary to ankylosing spondylitis Status: Chronic Assessment and plan: 04/14/2017. Overall the patient appears to be about the same, may be following some commands, he did move both of his upper extremities for me today. Did not move lower extremities at all. He does look to be comfortable and in no obvious signs of pain or pain behavior at this time. I do think that the reduced dose of Duragesic is an excellent idea and over time we might reduce this further. It is too soon to reduce the dose at this time but will follow closely. n 04/13/2017. The patient is a very interesting 66-year-old male who is accompanied by his . History from his since he is noncommunicative. The patient unfortunately has multiple medical problems and for the past 2 days has been noncommunicative and not following commands upon my exam. He has a long history of spinal pain secondary to ankylosing spondylitis as well as a peripheral neuropathy with lower extremity weakness. He recently was at [facility] going to rehab. On my exam he would not follow commands and could not communicate with me. I saw no spontaneous movement of the lower extremities and very little spontaneous movement of upper extremities. According to the patient's much of this has been slowly progressive over time rather than abrupt. There is some question whether or not the patient's polypharmacy is playing a role in his confusion and and overall weakness. At this point I agree with the approach of cutting back on the opioids. Cutting back the Duragesic from 50 to 25 mcg is an excellent idea and should also help avoid withdrawal symptomatology. At this point since he cannot communicate pain I would not give him in the as needed's until we can establish that he has true breakthrough pain. Will cut back on the Tranxene at this time as well. The patient was on a relatively high dose of Robaxin according the while at the half-way and this has been eliminated. Will consider adjusting medicines going forward depending on his mental status however he will not be on the same type of medicines for pain as he was prior to this episode. I will continue to follow with you and help care for this very pleasant gentleman. y Current Visit: Yes Qualifiers: Ankylosing spondylitis location: multiple sites in spine Qualified Code(s) : M45.0 - Ankylosing spondylitis of multiple sites in spine Pain - Subjective Interval history: reports some agitation today. No clear pain complaints. Exam - Constitutional Vitals: Period Temp Pulse Resp BP Sys/Ivey Pulse Ox Last 24 Hr 96.5 F-99.5 F 85-109 16-21 106-130/59-72 93-99 Results - Labs CBC & BMP: 04/14/17 05:51 04/14/17 05:51
[2017-04-14] MEDS: SODIUM CHLORIDE 0.9% 1,000 ML IV SCH ×2 (16:11→19:43)
[2017-04-14] MEDS: DESITIN 4OZ/NYSTATIN 15 GRAM MIXTURE PASTE TOP SCH ×2 (16:11→20:44)
[2017-04-15] MEDS: INSULIN REGULAR 100 UNIT/ML SUBCUT SCH ×4 (00:11→17:47)
[2017-04-15 03:20] LABS: Calcium 8.8 MG/DL (8.5-10.1); Magnesium 2.4 MG/DL (1.8-2.4); Potassium 3.1 MMOL/L (3.5-5.1)
[2017-04-15] MEDS: AMPICILLIN INJ 1,000 MG in SODIUM CHLORIDE 0.9% 100 ML IV SCH ×3 (03:30→17:42)
[2017-04-15] MEDS: POTASSIUM CHLORIDE 20 MEQ TABLET PO PRN ×3 (03:30→09:39)
[2017-04-15] MEDS: LEVOTHYROXINE 100 MCG TABLET PO SCH (06:10)
[2017-04-15] MEDS: ALBUTEROL 2.5 MG/3 ML NEB RESP TX SCH ×3 (07:25→19:25)
[2017-04-15] MEDS: LIDOCAINE 5% PATCH TRANSDERM SCH (09:38)
[2017-04-15] MEDS: THIAMINE 100 MG TABLET PO SCH (09:39)
[2017-04-15] MEDS: ASCORBIC ACID 500 MG TABLET PO SCH (09:39)
[2017-04-15] MEDS: MULTIVITAMIN (CENTRUM) TABLET PO SCH (09:39)
[2017-04-15] MEDS: BISOPROLOL 5 MG TABLET PO SCH (09:39)
[2017-04-15] MEDS: THEOPHYLLINE ER 300 MG TABLET PO SCH ×2 (09:39→20:36)
[2017-04-15] MEDS: CLORAZEPATE 3.75 MG TABLET PO SCH ×2 (09:39→20:36)
[2017-04-15] MEDS: miSOPROStol 200 MCG TABLET PO SCH (09:39)
[2017-04-15] MEDS: FOLIC ACID 1 MG TABLET PO SCH (09:39)
[2017-04-15] MEDS: DESITIN 4OZ/NYSTATIN 15 GRAM MIXTURE PASTE TOP SCH ×2 (09:40→20:47)
--- NOTE | 2017-04-15 10:17 | Hospitalist Progress Note ---
Assessment and Plan (1) Altered mental status Status: Acute Assessment and plan: Impression: 1. Altered mental status, likely multifactorial and related to medications and/ or infection 2. Urinary tract infection, currently covered with IV ampicillin 3. Ankylosing spondylitis 4. Multiple electrolyte abnormalities. Plan: The patient's IV fluids have been revised. Continue current antibiotics. Continue with lower doses of opioids and other BL[employer] active medications. This note was completed using [employer] voice recognition software. There may be locum tenens errors as a result. Current Visit: Yes Qualifiers: Altered mental status type: disorientation Qualified Code(s): R41.0 - Disorientation, unspecified Hospitalist: Subjective Interval history: Follow-up altered mental status, ankylosing spondylitis, and urinary infection. reports that the patient's mental status has improved. He is now awake and conversant, although he appears to be hallucinating. The also reports that the patient appears to be exhibiting some cold intolerance to liquids. She wondered if he might need to see a dentist. She says that he has not seen one for many years due to a bad experience when he had some wisdom teeth pulled over 40 years ago. She also reports that he had been managed with ibuprofen at home, and that the opioid dosing only escalated when he was placed in [facility] about 6 weeks ago. Exam - Constitutional Vitals: Period Temp Pulse Resp BP Sys/Ivey Pulse Ox Last 24 Hr 97.2 F-99.1 F 64-109 16-23 114-150/59-78 93-99 Vital signs are noted above. Heart is regular with distant tones and no murmur. Lungs are fairly clear anteriorly. Abdomen is protuberant with positive bowel sounds. Examination of the oral cavity reveals poor dentition with some obvious caries in one of the right upper molars. He is awake and conversant, but obviously confused or psychotic. Results - Labs CBC & BMP: 04/14/17 05:51 04/15/17 01:18 Lab Results: I have reviewed the past 24 hour labs (Sodium is trending up; potassium is trending down)
--- NOTE | 2017-04-15 11:21 | Pulmonology Progress Note ---
Pulmonary - PN: Subj Interval history: This is a 66-year-old white male longtime patient of mine. I saw this patient consultation on 04/12/2017. My impressions were. 1. Acute CVA. Speech and right body appear to be involved. 2. Altered mental status. Most likely secondary to #1. CT scan of the brain is pending 3. Ankylosing spondylitis and probable spinal stenosis. Anatomy and pain limit mobility. 4. Past history of T9 compression fracture requiring kyphosis. October 2013. 5. Peripheral sensory neuropathy. Symptoms are gradually worsened over time. 6. Chronic venous stasis of the lower extremities. Improved 7. Vitamin B12 deficiency. On replacement 8. Past history tobacco abuse. None now. 9. COPD/asthma 10. Past history of high blood pressure 11. Hypothyroidism. On replacement 12. Hyperlipidemia 13. Past history of prostate cancer. Resected. No evidence of recurrence 14. See past. 15. Dual-chamber cardiac pacer 16. Acute urinary tract infection. Gram-positive cocci 04/13/2017. Patient was seen along with his . Later I discussed the case with Dr. Beatty and we coordinated our care. Patient's having hallucinations. He still does not move his right side well and his speech seems to be off. CT of his brain was negative. Ultrasounds of the carotid showed disease but not severe. Patient has slipped in the atrial fib.I had him on Lopressor. I will change back to his home medicine. zebet which is a beta-shana. She is concerned about drug withdrawal. Will restart fentanyl at 25 mcg which is one half the previous dose and will restart Tranxene at 7.5 mg twice daily. Note the patient was previously on does a real 100 mg daily, [place] 10, 3 times a day, [place] 10 mg daily, Robaxin thousand milligrams 3 times daily, lidocaine patch, imipramine 25 mg daily. These have not been continued. Other medicines such as his thyroid medicine were restarted today. Patient been evaluated by speech therapy and he is okay for a pured diet. He is also being seen by occupational therapy and physical therapy. Microbiology shows a gram-positive cocci growing from the urine. ID is still pending. White count is 12,000 with 83 segs. H&H is stable 11.8/35.5 and platelets are 222,000. Electrolytes are normal. Creatinine is 0.4 and BUN is 15. Echocardiogram shows ejection fraction of 60%. Mild mitral regurgitation and mild aortic insufficiency. 04/14/2017. Patient was seen along with his , Tuan Philip nurse practitioner, Mary Anne Jain RN. I appreciate Dr. Abel Patel's note from yesterday. Patient is still hallucinating but he is a little more alert and he makes facial comments and occasional verbal comments about what is being said by me and by his . This patient had been on long-term does not really this worked well for him. While he was at the senior living he was started on Lexapro. I wonder if some of what we are seeing is serotonin syndrome. Patient is having some diarrhea. I have changed his lactulose to as needed. We will check his stools to make sure he does not have C. difficile. His urine has grown Enterococcus faecalis. I will treat this with IV amoxicillin based on the best GALLO. White blood cell count is 9800 with 77 segs and 9 lymphs. H& H is stable 11.1/33.5. Potassium is low at 3.1. Creatinine is 0.5 with a BUN of 17. Patient's on replacement protocol. Cardiology is seeing the patient and he is in a regular sinus rhythm. I appreciate their help. Patient is doing well from a pulmonary standpoint. We will ask physical therapy and Occupational Therapy to continue follow and treat the patient. Patient has a generalized symmetrical tremor which is most prominent in the upper extremity 04/15/2017. Patient was seen along with Maggie Jain RN, the patient's and his [id number]. He was up most of the night I am told. He was sound asleep and his did not want to wake him up. She says he is talking a more complete sentences now. He is having a good bit of watery diarrhea. His stools are negative for C. difficile. He is previously been on lactulose. I am going to start him on K[place]yl 1 tablespoon small glass of fluid now and after each bowel movement. Sodium is 150, potassium is 3.1, chloride is 114. Creatinine is 0.4 with a BUN of 16. Follow-up thyroid function test are normal. says the patient is requesting IV push ibuprofen. I have told her I am leaving this up to Dr. Patel and Dr. Beatty Microbiology. No positive cultures Physical exam. Vital signs. See below Psychiatric. Asleep. says his speech is better. He is less agitated she is Neurologic. Speech is clearer. Patient to move all 4 extremities. He has a generalized tremor which is most prominent in the upper extremities. The tremor is symmetric Chest. Clear Heart irregular at 80/min Abdomen. Rare bowel sounds Lower extremities. Very little edema Neck. Symmetrical with decreased range of motion secondary to ankylosing spondylitis Lymphatics. No submandibular cervical supraclavicular or epitrochlear adenopathy The remainder the physical exam is noncontributory Plan. 04/12/2070 1. Neurology consultation 2. CT of the head 3. Make a decision about anticoagulation as soon as possible 4. Ultrasounds of the carotids 5. Echocardiogram. Look for source of emboli 6. Consult physical therapy, Occupational Therapy and speech therapy 7. Double antibiotic coverage for gram-positive urinary tract infection until ID is known 8. Dr. Nelson and I have reviewed and discussed the case and we have coordinated our care. 9. Keep O2 sats 93% or above. Patient's a mild CO2 retainer but does not appear that he is going to be very sensitive to FiO2's unless he has a lot of neuro suppressive medications on board. 10. See orders Home Medications 04/13/2017 1. Atrial fib. Has a pacer. Consult cardiology. 2. Restart Tranxene and half dose fentanyl 3. [place] urine cultures is pending 4. See order 04/14/2017. 1. See today's note above. 2. Lexapro was added to the patient's regimen at the senior living. Could this be serotonin syndrome. 3. Change lactulose to as needed. 4. Stools for C. difficile number 5. Amoxicillin for Enterococcus faecalis urinary growth 6. See orders 04/14/2017. 1. See today's note above. 2. Konsyl for diarrhea 3. Replace potassium Exam (Progress Note) - Constitutional Vitals: Period Temp Pulse Resp BP Sys/[place] Pulse Ox Last 24 Hr 97.2 F-99.1 F 64-109 16-23 114-150/59-78 93-99 Results - Labs CBC & BMP: 04/14/17 05:51 04/15/17 01:18
[2017-04-15] MEDS: DEXT 5% NACL 0.45% KCL 40 MEQ 40 MEQ/1,000 ML BAG IV SCH (12:01)
[2017-04-15] MEDS: SODIUM CHLORIDE 0.9% 1,000 ML IV SCH (12:02)
[2017-04-15] MEDS: PSYLLIUM POWDER 3.7 GM/PACK PO PRN ×2 (12:52→20:36)
[2017-04-16] MEDS: DEXT 5% NACL 0.45% KCL 40 MEQ 40 MEQ/1,000 ML BAG IV SCH (01:24)
[2017-04-16] MEDS: INSULIN REGULAR 100 UNIT/ML SUBCUT SCH ×4 (01:33→18:07)
[2017-04-16] MEDS: AMPICILLIN INJ 1,000 MG in SODIUM CHLORIDE 0.9% 100 ML IV SCH ×3 (02:45→17:36)
[2017-04-16 06:15] LABS: Calcium 8.4 MG/DL (8.5-10.1); Osmolality,Calculated 298.9 MOS/KG (273-304); Potassium 3.9 MMOL/L (3.5-5.1)
[2017-04-16] MEDS: LEVOTHYROXINE 100 MCG TABLET PO SCH (06:21)
[2017-04-16] MEDS: ALBUTEROL 2.5 MG/3 ML NEB RESP TX SCH ×3 (07:46→19:34)
[2017-04-16] MEDS: ASCORBIC ACID 500 MG TABLET PO SCH (09:29)
[2017-04-16] MEDS: CLORAZEPATE 3.75 MG TABLET PO SCH ×2 (09:29→22:03)
[2017-04-16] MEDS: BISOPROLOL 5 MG TABLET PO SCH (09:29)
[2017-04-16] MEDS: THIAMINE 100 MG TABLET PO SCH (09:29)
[2017-04-16] MEDS: miSOPROStol 200 MCG TABLET PO SCH (09:29)
[2017-04-16] MEDS: MULTIVITAMIN (CENTRUM) TABLET PO SCH (09:30)
[2017-04-16] MEDS: FOLIC ACID 1 MG TABLET PO SCH (09:30)
[2017-04-16] MEDS: THEOPHYLLINE ER 300 MG TABLET PO SCH ×2 (09:30→22:03)
[2017-04-16] MEDS: fentaNYL 25 MCG/HR PATCH TRANSDERM SCH (09:30)
[2017-04-16] MEDS: LIDOCAINE 5% PATCH TRANSDERM SCH (09:30)
[2017-04-16] MEDS: DESITIN 4OZ/NYSTATIN 15 GRAM MIXTURE PASTE TOP SCH ×2 (09:32→22:04)
--- NOTE | 2017-04-16 10:02 | Pulmonology Progress Note ---
Pulmonary - PN: Subj Interval history: This is a 66-year-old white male longtime patient of mine. I saw this patient consultation on 04/12/2017. My impressions were. 1. Acute CVA. Speech and right body appear to be involved. 2. Altered mental status. Most likely secondary to #1. CT scan of the brain is pending 3. Ankylosing spondylitis and probable spinal stenosis. Anatomy and pain limit mobility. 4. Past history of T9 compression fracture requiring kyphosis. October 2013. 5. Peripheral sensory neuropathy. Symptoms are gradually worsened over time. 6. Chronic venous stasis of the lower extremities. Improved 7. Vitamin B12 deficiency. On replacement 8. Past history tobacco abuse. None now. 9. COPD/asthma 10. Past history of high blood pressure 11. Hypothyroidism. On replacement 12. Hyperlipidemia 13. Past history of prostate cancer. Resected. No evidence of recurrence 14. See past. 15. Dual-chamber cardiac pacer 16. Acute urinary tract infection. Gram-positive cocci 04/13/2017. Patient was seen along with his . Later I discussed the case with Dr. Beatty and we coordinated our care. Patient's having hallucinations. He still does not move his right side well and his speech seems to be off. CT of his brain was negative. Ultrasounds of the carotid showed disease but not severe. Patient has slipped in the atrial fib.I had him on Lopressor. I will change back to his home medicine. zebet which is a beta-shana. She is concerned about drug withdrawal. Will restart fentanyl at 25 mcg which is one half the previous dose and will restart Tranxene at 7.5 mg twice daily. Note the patient was previously on does a real 100 mg daily, [place] 10, 3 times a day, Sonata 10 mg daily, Robaxin thousand milligrams 3 times daily, lidocaine patch, imipramine 25 mg daily. These have not been continued. Other medicines such as his thyroid medicine were restarted today. Patient been evaluated by speech therapy and he is okay for a pured diet. He is also being seen by occupational therapy and physical therapy. Microbiology shows a gram-positive cocci growing from the urine. ID is still pending. White count is 12,000 with 83 segs. H&H is stable 11.8/35.5 and platelets are 222,000. Electrolytes are normal. Creatinine is 0.4 and BUN is 15. Echocardiogram shows ejection fraction of 60%. Mild mitral regurgitation and mild aortic insufficiency. 04/14/2017. Patient was seen along with his , Tuan Philip nurse practitioner, Mary Anne Jain RN. I appreciate Dr. Abel Patel's note from yesterday. Patient is still hallucinating but he is a little more alert and he makes facial comments and occasional verbal comments about what is being said by me and by his . This patient had been on long-term does not really this worked well for him. While he was at the [place] [facility] he was started on Lexapro. I wonder if some of what we are seeing is serotonin syndrome. Patient is having some diarrhea. I have changed his lactulose to as needed. We will check his stools to make sure he does not have C. difficile. His urine has grown Enterococcus faecalis. I will treat this with IV amoxicillin based on the best GALLO. White blood cell count is 9800 with 77 segs and 9 lymphs. H& H is stable 11.1/33.5. Potassium is low at 3.1. Creatinine is 0.5 with a BUN of 17. Patient's on replacement protocol. Cardiology is seeing the patient and he is in a regular sinus rhythm. I appreciate their help. Patient is doing well from a pulmonary standpoint. We will ask physical therapy and Occupational Therapy to continue follow and treat the patient. Patient has a generalized symmetrical tremor which is most prominent in the upper extremity 04/15/2017. Patient was seen along with Maggie Jain RN, the patient's and his [id number]. He was up most of the night I am told. He was sound asleep and his did not want to wake him up. She says he is talking a more complete sentences now. He is having a good bit of watery diarrhea. His stools are negative for C. difficile. He is previously been on lactulose. I am going to start him on Konsyl 1 tablespoon small glass of fluid now and after each bowel movement. Sodium is 150, potassium is 3.1, chloride is 114. Creatinine is 0.4 with a BUN of 16. Follow-up thyroid function test are normal. says the patient is requesting IV push ibuprofen. I have told her I am leaving this up to Dr. Patel and Dr. Beatty Microbiology. No positive cultures 04/16/2017. Patient was seen along with Maggie Jain RN and the patient's . Patient's having auditory hallucinations. I am not sure if he has visual hallucinations. He is more alert and he is using more words. He is still definitely confused. Sodium is 151. Potassium 3.9. Calcium is 8.4. There are no new positive cultures. Patient is gradually improving but he has a long ways to go. Physical exam. Vital signs. See below Psychiatric. Awake. Confused. Hallucinating. Neurologic. Speech is clearer. Patient to move all 4 extremities. Generalized tremor in his upper extremities has resolved Chest. Clear Heart irregular at 80/min Abdomen. Rare bowel sounds Lower extremities. Very little edema Neck. Symmetrical with decreased range of motion secondary to ankylosing spondylitis Lymphatics. No submandibular cervical supraclavicular or epitrochlear adenopathy The remainder the physical exam is noncontributory Plan. 04/12/2070 1. Neurology consultation 2. CT of the head 3. Make a decision about anticoagulation as soon as possible 4. Ultrasounds of the carotids 5. Echocardiogram. Look for source of emboli 6. Consult physical therapy, Occupational Therapy and speech therapy 7. Double antibiotic coverage for gram-positive urinary tract infection until ID is known 8. Dr. Nelson and I have reviewed and discussed the case and we have coordinated our care. 9. Keep O2 sats 93% or above. Patient's a mild CO2 retainer but does not appear that he is going to be very sensitive to FiO2's unless he has a lot of neuro suppressive medications on board. 10. See orders Home Medications 04/13/2017 1. Atrial fib. Has a pacer. Consult cardiology. 2. Restart Tranxene and half dose fentanyl 3. [place] urine cultures is pending 4. See order 04/14/2017. 1. See today's note above. 2. Lexapro was added to the patient's regimen at the [place] [facility]. Could this be serotonin syndrome. 3. Change lactulose to as needed. 4. Stools for C. difficile number 5. Amoxicillin for Enterococcus faecalis urinary growth 6. See orders 04/15/2017. 1. See today's note above. 2. Konsyl for diarrhea 3. Replace potassium 04/16/2017. 1. see today's note above. 2. Potassium is 3.9. Exam (Progress Note) - Constitutional Vitals: Period Temp Pulse Resp BP Sys/Ivey Pulse Ox Last 24 Hr 97.0 F-98.4 F 66-106 18-20 121-151/59-118 90-99 Results - Labs CBC & BMP: 04/14/17 05:51 04/16/17 05:13
--- NOTE | 2017-04-16 10:18 | Hospitalist Progress Note ---
Assessment and Plan (1) Altered mental status Status: Acute Assessment and plan: Impression: 1. Altered mental status, likely multifactorial and related to medications and/ or infection 2. Urinary tract infection, currently covered with IV ampicillin 3. Ankylosing spondylitis 4. Multiple electrolyte abnormalities. Plan: Revise IV fluids. Continue current antibiotics. Continue with lower doses of opioids and other [employer] active medications. This note was completed using [employer] voice recognition software. There may be rn mds coordinator errors as a result. Current Visit: Yes Qualifiers: Altered mental status type: disorientation Qualified Code(s): R41.0 - Disorientation, unspecified Hospitalist: Subjective Interval history: Follow-up urinary tract infection, electrolyte abnormalities, mental status change, and ankylosing spondylitis. The reports that the patient continues to hallucinate. We revised his IV fluids yesterday due to hypokalemia and hypernatremia. She reports that his speech remains at baseline, but he continues with auditory and visual hallucinations. These are new since hospitalization, and likely related to medication reduction/withdrawal. Exam - Constitutional Vitals: Period Temp Pulse Resp BP Sys/Ivey Pulse Ox Last 24 Hr 97.0 F-98.4 F 66-106 18-20 121-151/59-118 90-99 Vital signs are noted above. Heart is regular with a soft systolic murmur and no gallop. Lungs are clear anteriorly with no rales or wheezes. Abdomen is protuberant with good bowel sounds. He has evidence of some possible venous stasis disease in the right lower extremity; there is evidence of prior edema but none currently. He is awake and conversant, but obviously confused. Results - Labs CBC & BMP: 04/14/17 05:51 04/16/17 05:13 Lab Results: I have reviewed the past 24 hour labs
[2017-04-16] MEDS: DEXTROSE 5% 1,000 ML IV SCH (13:22)
[2017-04-17] MEDS: INSULIN REGULAR 100 UNIT/ML SUBCUT SCH ×2 (00:34→05:51)
[2017-04-17] MEDS: AMPICILLIN INJ 1,000 MG in SODIUM CHLORIDE 0.9% 100 ML IV SCH ×3 (03:02→18:05)
[2017-04-17] MEDS: DEXTROSE 5% 1,000 ML IV SCH ×2 (03:08→16:10)
[2017-04-17 06:39] LABS: Calcium 8.5 MG/DL (8.5-10.1); Osmolality,Calculated 285.8 MOS/KG (273-304); Potassium 4.1 MMOL/L (3.5-5.1)
[2017-04-17] MEDS: LEVOTHYROXINE 100 MCG TABLET PO SCH (07:08)
[2017-04-17] MEDS: ALBUTEROL 2.5 MG/3 ML NEB RESP TX SCH ×3 (07:44→19:07)
[2017-04-17] MEDS: BISOPROLOL 5 MG TABLET PO SCH (09:19)
[2017-04-17] MEDS: THEOPHYLLINE ER 300 MG TABLET PO SCH ×2 (09:19→21:44)
[2017-04-17] MEDS: CLORAZEPATE 3.75 MG TABLET PO SCH ×2 (09:19→21:44)
[2017-04-17] MEDS: MULTIVITAMIN (CENTRUM) TABLET PO SCH (09:19)
[2017-04-17] MEDS: miSOPROStol 200 MCG TABLET PO SCH (09:19)
[2017-04-17] MEDS: THIAMINE 100 MG TABLET PO SCH (09:19)
[2017-04-17] MEDS: FOLIC ACID 1 MG TABLET PO SCH (09:20)
[2017-04-17] MEDS: ASCORBIC ACID 500 MG TABLET PO SCH (09:20)
[2017-04-17] MEDS: DESITIN 4OZ/NYSTATIN 15 GRAM MIXTURE PASTE TOP SCH ×2 (09:20→22:40)
[2017-04-17] MEDS: LIDOCAINE 5% PATCH TRANSDERM SCH (09:32)
--- NOTE | 2017-04-17 09:46 | Pulmonology Progress Note ---
Pulmonary - PN: Subj Interval history: This is a 66-year-old white male longtime patient of mine. I saw this patient consultation on 04/12/2017. My impressions were. 1. Acute CVA. Speech and right body appear to be involved. 2. Altered mental status. Most likely secondary to #1. CT scan of the brain is pending 3. Ankylosing spondylitis and probable spinal stenosis. Anatomy and pain limit mobility. 4. Past history of T9 compression fracture requiring kyphosis. October 2013. 5. Peripheral sensory neuropathy. Symptoms are gradually worsened over time. 6. Chronic venous stasis of the lower extremities. Improved 7. Vitamin B12 deficiency. On replacement 8. Past history tobacco abuse. None now. 9. COPD/asthma 10. Past history of high blood pressure 11. Hypothyroidism. On replacement 12. Hyperlipidemia 13. Past history of prostate cancer. Resected. No evidence of recurrence 14. See past. 15. Dual-chamber cardiac pacer 16. Acute urinary tract infection. Gram-positive cocci 04/13/2017. Patient was seen along with his . Later I discussed the case with Dr. Beatty and we coordinated our care. Patient's having hallucinations. He still does not move his right side well and his speech seems to be off. CT of his brain was negative. Ultrasounds of the carotid showed disease but not severe. Patient has slipped in the atrial fib.I had him on Lopressor. I will change back to his home medicine. zebet which is a beta-shana. She is concerned about drug withdrawal. Will restart fentanyl at 25 mcg which is one half the previous dose and will restart Tranxene at 7.5 mg twice daily. Note the patient was previously on does a real 100 mg daily, [place] 10, 3 times a day, Sonata 10 mg daily, Robaxin thousand milligrams 3 times daily, lidocaine patch, imipramine 25 mg daily. These have not been continued. Other medicines such as his thyroid medicine were restarted today. Patient been evaluated by speech therapy and he is okay for a pured diet. He is also being seen by occupational therapy and physical therapy. Microbiology shows a gram-positive cocci growing from the urine. ID is still pending. White count is 12,000 with 83 segs. H&H is stable 11.8/35.5 and platelets are 222,000. Electrolytes are normal. Creatinine is 0.4 and BUN is 15. Echocardiogram shows ejection fraction of 60%. Mild mitral regurgitation and mild aortic insufficiency. 04/14/2017. Patient was seen along with his , Tuan Philip nurse practitioner, Mary Anne Jain RN. I appreciate Dr. Abel Patel's note from yesterday. Patient is still hallucinating but he is a little more alert and he makes facial comments and occasional verbal comments about what is being said by me and by his . This patient had been on long-term does not really this worked well for him. While he was at the long-term he was started on Lexapro. I wonder if some of what we are seeing is serotonin syndrome. Patient is having some diarrhea. I have changed his lactulose to as needed. We will check his stools to make sure he does not have C. difficile. His urine has grown Enterococcus faecalis. I will treat this with IV amoxicillin based on the best GALLO. White blood cell count is 9800 with 77 segs and 9 lymphs. H& H is stable 11.1/33.5. Potassium is low at 3.1. Creatinine is 0.5 with a BUN of 17. Patient's on replacement protocol. Cardiology is seeing the patient and he is in a regular sinus rhythm. I appreciate their help. Patient is doing well from a pulmonary standpoint. We will ask physical therapy and Occupational Therapy to continue follow and treat the patient. Patient has a generalized symmetrical tremor which is most prominent in the upper extremity 04/15/2017. Patient was seen along with Maggie Jain RN, the patient's and his [id number]. He was up most of the night I am told. He was sound asleep and his did not want to wake him up. She says he is talking a more complete sentences now. He is having a good bit of watery diarrhea. His stools are negative for C. difficile. He is previously been on lactulose. I am going to start him on Konsyl 1 tablespoon small glass of fluid now and after each bowel movement. Sodium is 150, potassium is 3.1, chloride is 114. Creatinine is 0.4 with a BUN of 16. Follow-up thyroid function test are normal. says the patient is requesting IV push ibuprofen. I have told her I am leaving this up to Dr. Patel and Dr. Beatty Microbiology. No positive cultures 04/16/2017. Patient was seen along with Maggie Jain RN and the patient's . Patient's having auditory hallucinations. I am not sure if he has visual hallucinations. He is more alert and he is using more words. He is still definitely confused. Sodium is 151. Potassium 3.9. Calcium is 8.4. There are no new positive cultures. Patient is gradually improving but he has a long ways to go. 04/17/2017. Patient is much more alert today and he can carry on a fairly good conversation. Patient is say that he has had an aversion to food predating this illness. His admit theophylline level was 17. We will repeat this. Theophylline level is elevated will reduce the dose. He is doing well from a pulmonary standpoint. I have also started him on a proton pump inhibitor and Carafate. Will check his amylase and his lipase. He denies any abdominal pain and is been no significant dysphasia. Medicines have been reviewed. Labs been reviewed. Physical exam. Vital signs. See below Psychiatric. Awake. Oriented 3. Able to carry on a conversation peer Neurologic. Speech is clear. Patient to move all 4 extremities. Generalized tremor in his upper extremities has resolved Chest. Clear Heart irregular at 80/min Abdomen. Rare bowel sounds Lower extremities. Very little edema Neck. Symmetrical with decreased range of motion secondary to ankylosing spondylitis Lymphatics. No submandibular cervical supraclavicular or epitrochlear adenopathy The remainder the physical exam is noncontributory Plan. 04/12/2070 1. Neurology consultation 2. CT of the head 3. Make a decision about anticoagulation as soon as possible 4. Ultrasounds of the carotids 5. Echocardiogram. Look for source of emboli 6. Consult physical therapy, Occupational Therapy and speech therapy 7. Double antibiotic coverage for gram-positive urinary tract infection until ID is known 8. Dr. Nelson and I have reviewed and discussed the case and we have coordinated our care. 9. Keep O2 sats 93% or above. Patient's a mild CO2 retainer but does not appear that he is going to be very sensitive to FiO2's unless he has a lot of neuro suppressive medications on board. 10. See orders Home Medications 04/13/2017 1. Atrial fib. Has a pacer. Consult cardiology. 2. Restart Tranxene and half dose fentanyl 3. Flom urine cultures is pending 4. See order 04/14/2017. 1. See today's note above. 2. Lexapro was added to the patient's regimen at the long-term. Could this be serotonin syndrome. 3. Change lactulose to as needed. 4. Stools for C. difficile number 5. Amoxicillin for Enterococcus faecalis urinary growth 6. See orders 04/15/2017. 1. See today's note above. 2. Konsyl for diarrhea 3. Replace potassium 04/16/2017. 1. see today's note above. 2. Potassium is 3.9. 04/17/2017. 1. Check theophylline level 2. Check amylase and lipase 3. Begin Carafate and proton pump inhibitor 4. Continue physical therapy and Occupational Therapy. 5. Advance diet as tolerated Exam (Progress Note) - Constitutional Vitals: Period Temp Pulse Resp BP Sys/Ivey Pulse Ox Last 24 Hr 97.9 F-98.4 F 72-98 16-20 103-146/67-83 93-99 Results - Labs CBC & BMP: 04/14/17 05:51 04/17/17 05:06
--- NOTE | 2017-04-17 10:21 | Hospitalist Progress Note ---
Assessment and Plan (1) Altered mental status Status: Acute Assessment and plan: 1)neuro changes, decreased LOC on admit- due to meds, UTI. acute stroke ruled out though on exam after admission he had lateralizing signs of stroke. More recently he has had hallucinations from withdrawal from narcotics, but today these have stopped and he seems much more like the man I remember form his last admission. 2)HTN 3)ankylosing spondylitis- very limiting. Begin PT/OT. HE cannot turn his head well. 4)chronic pain- lidoderm and duragesic patch, tranxene 5)hypokalemia- replaced 6)Enterococcal UTI- On ampicillin IV. 7)dispo- will return to [facility]. PT to see for assessment. Current Visit: Yes (2) Ankylosing spondylitis Problem details: Spinal pain secondary to ankylosing spondylitis Status: Chronic Current Visit: Yes Qualifiers: Ankylosing spondylitis location: multiple sites in spine Qualified Code(s) : M45.0 - Ankylosing spondylitis of multiple sites in spine (3) Peripheral polyneuropathy Status: Acute Current Visit: No (4) Status post biventricular pacemaker Status: Chronic Current Visit: No (5) HTN (hypertension) Status: Chronic Current Visit: Yes Hospitalist: Subjective Interval history: Mr Fischer is doing much better than he was when he as admitted. He is awake and having appropriate conversation. His appetite is not great, but he is eating some. I discussed discharge plan with his and him- I think she should begin arranging readmit to [facility] as I anticipate discharge in a day or so. Exam - Constitutional Vitals: Period Temp Pulse Resp BP Sys/Ivey Pulse Ox Last 24 Hr 97.9 F-98.4 F 72-98 16-20 103-146/67-83 93-99 General appearance: no acute distress, over weight - Eye Eye exam: Present: EOMI. Absent: scleral icterus - Respiratory Respiratory exam: Present: clear to auscultation bilaterally - Cardiovascular Cardiovascular exam: Present: regular rate and rhythm - GI/Abdominal GI/Abdominal exam: Present: normal bowel sounds, soft. Absent: tenderness - Extremities Exam Extremities exam: Present: edema (1+ in lower extremities) Results - Labs CBC & BMP: 04/14/17 05:51 04/17/17 05:06 Lab Results: I have reviewed the past 24 hour labs
[2017-04-17] MEDS: PANTOPRAZOLE 40 MG TABLET PO SCH (10:42)
[2017-04-17] MEDS: SUCRALFATE 1 GM TABLET PO SCH ×3 (10:42→21:44)
--- NOTE | 2017-04-17 13:11 | Pain Management Progress Note ---
Assessment and Plan (1) Ankylosing spondylitis Problem details: Spinal pain secondary to ankylosing spondylitis Status: Chronic Assessment and plan: 04/17/2017. The patient is doing better overall. He is now communicating and complete sentences. He is now following commands. He can squeeze both my hands. Very little movement in the lower extremities but some movement of both feet. He did have some back pain with movement today and try to sit up in bed. He has some bilateral lower extremity pain secondary to severe peripheral neuropathy as well. The spinal pain is related to severe degenerative changes also related to the ankylosing spondylitis. He will need ongoing analgesic therapy in the form of the Duragesic. Long discussion with the patient's and will plan to keep him at the 25 mcg/h dosage without increase. Also will continue after discharge the low-dose [place]. I think that 5 mg every 8 hours is reasonable for him. We will not schedule muscle relaxers since they may have contributed to his confusion. Also we will plan to see him in the clinic and 2-3 weeks sooner if necessary. Discuss with the his therapy regime as well. She is to continue to work on his lower extremities between physical therapy visits. y 04/14/2017. Overall the patient appears to be about the same, may be following some commands, he did move both of his upper extremities for me today. Did not move lower extremities at all. He does look to be comfortable and in no obvious signs of pain or pain behavior at this time. I do think that the reduced dose of Duragesic is an excellent idea and over time we might reduce this further. It is too soon to reduce the dose at this time but will follow closely. n 04/13/2017. The patient is a very interesting 66-year-old male who is accompanied by his . History from his since he is noncommunicative. The patient unfortunately has multiple medical problems and for the past 2 days has been noncommunicative and not following commands upon my exam. He has a long history of spinal pain secondary to ankylosing spondylitis as well as a peripheral neuropathy with lower extremity weakness. He recently was at [facility] going to rehab. On my exam he would not follow commands and could not communicate with me. I saw no spontaneous movement of the lower extremities and very little spontaneous movement of upper extremities. According to the patient's much of this has been slowly progressive over time rather than abrupt. There is some question whether or not the patient's polypharmacy is playing a role in his confusion and and overall weakness. At this point I agree with the approach of cutting back on the opioids. Cutting back the Duragesic from 50 to 25 mcg is an excellent idea and should also help avoid withdrawal symptomatology. At this point since he cannot communicate pain I would not give him in the as needed's until we can establish that he has true breakthrough pain. Will cut back on the Tranxene at this time as well. The patient was on a relatively high dose of Robaxin according the while at the long term and this has been eliminated. Will consider adjusting medicines going forward depending on his mental status however he will not be on the same type of medicines for pain as he was prior to this episode. I will continue to follow with you and help care for this very pleasant gentleman. y Current Visit: Yes Qualifiers: Ankylosing spondylitis location: multiple sites in spine Qualified Code(s) : M45.0 - Ankylosing spondylitis of multiple sites in spine Pain - Subjective Interval history: Back pain with movement; communicating better Exam - Constitutional Vitals: Period Temp Pulse Resp BP Sys/Ivey Pulse Ox Last 24 Hr 97.9 F-98.4 F 72-98 16-20 103-146/67-83 93-99 General appearance: normal weight - ENT Mouth exam: Present: normal voice - Back Exam Back exam: Present: vertebral tenderness - Neurological Exam Neurological exam: Present: alert, motor sensory deficit (Lower extremities) - Skin Skin exam: Present: normal color Results - Labs CBC & BMP: 04/14/17 05:51 04/17/17 05:06
--- NOTE | 2017-04-17 15:14 | Neurology Progress Note ---
Neurology - PN : Subjective Interval history: Patient seems to be doing really well. Mentally almost back to his baseline. No new problems reported. Exam (Progress Note) - Constitutional Vitals: Period Temp Pulse Resp BP Sys/Ivey Pulse Ox Last 24 Hr 96.8 F-98.4 F 72-98 16-20 103-146/67-83 93-99 Exam: GENERAL: Patient is in no acute distress. NECK: Neck is supple. There is no JVD. No carotid bruits present. No thyroid masses. CVS: First and second heart sounds are normal. There is no S3 present. Regular rate and rhythm. RESPIRATORY: Lungs are clear to auscultation without any rales or rhonchi. ABDOMEN: Soft and non-tender. Bowel sounds are present. There is no hepatosplenomegaly. EXT: There is no palpable edema. Peripheral pulses are present. Skin: No rashes Central Nervous system: General: Awake and alert Speech: Mumbling however following commands Comprehension: Fair Facial expressions: Normal Cranial Nerves: Pupils are sluggish but reactive. Doll's head eye movements are positive. No facial asymmetry seen. Motor: Paraplegia but strength cannot be assessed today. Sensory: Cannot be assessed Reflexes: Absent and symmetrical Cerebellar function: Not be assessed Toes: Equivocal Gait: Cannot be assessed Results - Labs CBC & BMP: 04/14/17 05:51 04/17/17 05:06 Assessment and Plan (1) Altered mental status Status: Acute Assessment and plan: medication induced encephalopathy/side effects. No further intervention needed from neuro standpoint at this time Sign off please call as needed Current Visit: Yes Qualifiers: Altered mental status type: disorientation Qualified Code(s): R41.0 - Disorientation, unspecified Specialty Discharge - Follow Up or Referrals Follow up with: Abel Patel MD [Physician] - 05/08/17 1:45 pm (bring paperwork with you to your appointment)
--- NOTE | 2017-04-17 17:12 | General Surgery Consult Note ---
Assessment and Plan - Time spent with patient Time spent with patient: Greater than 30 minutes (1) Chronic venous stasis dermatitis Status: Acute Assessment and plan: Impression: Chronic venous stasis disease without ulceration Current Visit: No (2) Ankylosing spondylitis Problem details: Spinal pain secondary to ankylosing spondylitis Status: Chronic Assessment and plan: Impression: Ankylosing spondylosis with severe generalized discomfort and difficulty in ambulating Current Visit: Yes Qualifiers: Ankylosing spondylitis location: multiple sites in spine Qualified Code(s) : M45.0 - Ankylosing spondylitis of multiple sites in spine (3) Decubitus ulcer Status: Acute Assessment and plan: Impression: Decubitus ulcer changes around the buttocks and left ella-sacral area stage II Plan: Try to rotate him off this is much as possible Try to get there is better bed for him Apply some degree of wound care to just try to get this under control. Current Visit: No Qualifiers: Pressure ulcer location: contiguous region involving back and buttock Pressure ulcer stage: stage 2 History of Present Illness Chief complaint: Sacral ulcer History of present illness: Mr. Fischer is a 66 year old male white who was admitted for altered state of mentation that is believed possibly due to medication at this time. He has a great deal of pain and discomfort associated with ankylosing spondylosis. We are asked to see him for some pressure changes on the gluteal area. Home Medications Medication Instructions Recorded Confirmed Type Imipramine HCl 25 mg PO DAILY 02/20/17 04/11/17 History Levothyroxine Tab [Synthroid Tab] 100 mcg PO DAILY 02/20/17 04/11/17 History Potassium Chloride Liquid 15 ml PO BID 02/20/17 04/11/17 History Theophylline ER Tab 300 mg PO Q12H 02/20/17 04/11/17 History Bisoprolol [Zebeta] 5 mg PO DAILY tablet 03/02/17 04/11/17 Rx Folic Acid Tab 1 mg PO DAILY tablet 03/02/17 04/11/17 Rx Lidocaine 5% Patch [Lidoderm 5% 1 patch TRANSDERM DAILY patch 03/02/17 Rx Patch] Multivitamin (Centrum) [Centrum 1 tablet PO DAILY tablet 03/02/17 04/11/17 Rx Tab] Thiamine Tab [Vitamin B1 Tab] 100 mg PO DAILY tablet 03/02/17 04/11/17 Rx amLODIPine [Norvasc] 10 mg PO DAILY tablet 03/02/17 04/11/17 Rx miSOPROStol [Cytotec] 200 mcg PO DAILY tablet 03/02/17 04/11/17 Rx HYDROcodone/ACETAMIN 10-325 [[place] 1 tablet PO TID PRN 03/14/17 04/11/17 History 10-325] Albuterol Sulfate [Albuterol Neb] 2.5 mg RESP TX TID 04/11/17 04/11/17 History Ascorbic Acid Tab [Vitamin C Tab] 500 mg PO DAILY 04/11/17 04/11/17 History Bisacodyl Tab [Dulcolax Tab] 5 mg PO DAILY PRN 04/11/17 04/11/17 History Clorazepate [Tranxene] 7.5 mg PO BID 04/11/17 04/11/17 History Furosemide Tab [Lasix Tab] 40 mg PO DAILY 04/11/17 04/11/17 History Ibuprofen Tab [Motrin Tab] 400 mg PO BID 04/11/17 04/11/17 History Lactulose Liquid [Chronulac] 30 ml PO BID 04/11/17 04/11/17 History Magnesium Hydroxide Susp [Milk of 30 ml PO DAILY PRN 04/11/17 04/11/17 History Magnesia] Methocarbamol Tab [Robaxin Tab] 1,000 mg PO TID 04/11/17 04/11/17 History Trazodone HCl 100 mg PO DAILY 04/11/17 04/11/17 History Zaleplon [Sonata] 10 mg PO DAILY 04/11/17 04/11/17 History fentaNYL [Fentanyl 50 mcg/hr Patch] 1 patch TRANSDERM Q3DAY 04/11/17 04/11/17 History Allergies Allergy/AdvReac Type Severity Reaction Status Date / Time codeine Allergy Unknown UNRESPONSIV Verified 04/12/17 00:48 E acetaminophen [From Percocet] Allergy Verified 04/12/17 00:48 escitalopram [From Lexapro] Allergy Verified 04/12/17 00:48 gabapentin [From Neurontin] Allergy Verified 04/12/17 00:48 Hydromorphone [From Dilaudid] Allergy Verified 04/12/17 00:48 Oxycodone [From Percocet] Allergy Verified 04/12/17 00:48 Medical,Surgical,& Family Hx - Medical History Cardio: History of: CAD, Hypertension, Pacemaker (Dual-chamber on February 28, 2007- Dr. Clemens) No history of: MS, PVD Psychological: History of: Anxiety Disorders, Depression Neurology: History of: Vertigo HEENT: History of: Eye Problem (WEARS GLASSES, NEAR SIGHTED, CATARACT LEFT EYE) Endocrine: History of: Thyroid Disorder No history of: Diabetes Mellitus (IDDM), Diabetes Mellitus (NIDDM), Dyslipidemia Respiratory: History of: Bronchitis, COPD, Intubation, Pulmonary Hypertension, Pneumonia Renal: No history of: Renal Problems Genitourinary: History of: Prostate Problems (PROSTATE CA) Gastrointestinal: History of: Gastrointestinal Bleed, Hemorrhoids Musculoskeletal: History of: Back/Neck Problems, Degenerative Disk Disease, Herniated Disk, Musculoskeletal Problems (suspected MS, fx T-) Other: History of: Cancer, Miscellaneous Medical Problems (ankylosing spondylitis) - Surgical History Cardiac Surgeries: Patient Denies: Femoral-Popliteal Bypass Graft, Cardiac Catheterization, Cardiac Surgery, Carotid Endarterectomy, Internal Defibrillator, Vascular Access Devices Thoracic Surgeries: Patient denies;: Organ Transplant Neurologic Surgeries: Patient denies: Neurologic Surgery HEENT Surgeries: Surgical HX of: Tonsilectomy & Adenoidectomy Patient denies: Carotid Endarterectomy Abdominal Surgeries: Patient denies: Abdominal Surgery, Splenectomy Reproductive Surgeries: Surgical HX of;: Genitourinary Surgery, Prostate Surgery (PROSTATECTOMY) Orthopedic Surgeries: Surgical HX of;: Orthopedic Surgery (RIGHT ANKLE FRACTURE) - Family History Family History: Reports;: Family Cancer (FATHER (TESTICULAR CA)), Family Diabetes (FATHER), Family Heart Disease (MOTHER), Family Hypertension - Social History Smoking Status: Former smoker Frequency of Alcohol Use: Occasionally Type of Drug Use: None 12 point system: reviewed and no additional remarkable complaints except as stated Exam - Constitutional Vitals: Period Temp Pulse Resp BP Sys/Ivey Pulse Ox Last 24 Hr 96.8 F-98.4 F 72-103 16-20 108-146/67-83 93-99 General appearance: mild distress - Head Head exam: Present: normal inspection - ENT ENT exam: Present: normal exam - Neck Neck exam: Present: normal inspection - Respiratory Respiratory exam: Present: clear to auscultation bilaterally, rales - Cardiovascular Cardiovascular exam: Present: RRR - GI/Abdominal GI/Abdominal exam: Present: hypoactive bowel sounds, soft. Absent: tenderness - Extremities Exam Extremities exam: Present: edema (Mild to moderate lower extremity), other (No ulcerations present) - Back Exam Back exam: Present: other (There is some dark skin discoloration around the gluteal area with an area on the left Horace's sacral region that is a little more defined with some mild induration but no obvious skin loss at this time.) - Neurological Exam Neurological exam: Present: alert, oriented X3, CN II-XII intact - Skin Skin exam: Present: normal color, warm, dry Results - Labs CBC & BMP: 04/14/17 05:51 04/17/17 05:06 Lab Results: I have reviewed the past 24 hour labs Specialty Discharge - Follow Up or Referrals Follow up with: Abel Patel MD [Physician] - 05/08/17 1:45 pm (bring paperwork with you to your appointment)
[2017-04-17] MEDS ORDERED: SKIN HEALING OINT (AQUAPHOR) 50 GM TUBE TOP PRN (17:19)
[2017-04-17] MEDS ORDERED: CHLORHEXIDINE 4% SOLN 118 ML BOTTLE TOP ONE (17:19)
[2017-04-18] MEDS: AMPICILLIN INJ 1,000 MG in SODIUM CHLORIDE 0.9% 100 ML IV SCH ×4 (05:23→21:02)
[2017-04-18] MEDS: LEVOTHYROXINE 100 MCG TABLET PO SCH (06:21)
[2017-04-18] MEDS: ALBUTEROL 2.5 MG/3 ML NEB RESP TX SCH ×3 (07:19→20:36)
--- NOTE | 2017-04-18 09:47 | Pulmonology Progress Note ---
Pulmonary - PN: Subj Interval history: This is a 66-year-old white male longtime patient of mine. I saw this patient consultation on 04/12/2017. My impressions were. 1. Acute CVA. Speech and right body appear to be involved. 2. Altered mental status. Most likely secondary to #1. CT scan of the brain is pending 3. Ankylosing spondylitis and probable spinal stenosis. Anatomy and pain limit mobility. 4. Past history of T9 compression fracture requiring kyphosis. October 2013. 5. Peripheral sensory neuropathy. Symptoms are gradually worsened over time. 6. Chronic venous stasis of the lower extremities. Improved 7. Vitamin B12 deficiency. On replacement 8. Past history tobacco abuse. None now. 9. COPD/asthma 10. Past history of high blood pressure 11. Hypothyroidism. On replacement 12. Hyperlipidemia 13. Past history of prostate cancer. Resected. No evidence of recurrence 14. See past. 15. Dual-chamber cardiac pacer 16. Acute urinary tract infection. Gram-positive cocci 04/13/2017. Patient was seen along with his . Later I discussed the case with Dr. Beatty and we coordinated our care. Patient's having hallucinations. He still does not move his right side well and his speech seems to be off. CT of his brain was negative. Ultrasounds of the carotid showed disease but not severe. Patient has slipped in the atrial fib.I had him on Lopressor. I will change back to his home medicine. zebet which is a beta-shana. She is concerned about drug withdrawal. Will restart fentanyl at 25 mcg which is one half the previous dose and will restart Tranxene at 7.5 mg twice daily. Note the patient was previously on does a real 100 mg daily, Etlan 10, 3 times a day, Sonata 10 mg daily, Robaxin thousand milligrams 3 times daily, lidocaine patch, imipramine 25 mg daily. These have not been continued. Other medicines such as his thyroid medicine were restarted today. Patient been evaluated by speech therapy and he is okay for a pured diet. He is also being seen by occupational therapy and physical therapy. Microbiology shows a gram-positive cocci growing from the urine. ID is still pending. White count is 12,000 with 83 segs. H&H is stable 11.8/35.5 and platelets are 222,000. Electrolytes are normal. Creatinine is 0.4 and BUN is 15. Echocardiogram shows ejection fraction of 60%. Mild mitral regurgitation and mild aortic insufficiency. 04/14/2017. Patient was seen along with his , Tuan Philip nurse practitioner, Mary Anne Jain RN. I appreciate Dr. Abel Patel's note from yesterday. Patient is still hallucinating but he is a little more alert and he makes facial comments and occasional verbal comments about what is being said by me and by his . This patient had been on long-term does not really this worked well for him. While he was at the shelter he was started on Lexapro. I wonder if some of what we are seeing is serotonin syndrome. Patient is having some diarrhea. I have changed his lactulose to as needed. We will check his stools to make sure he does not have C. difficile. His urine has grown Enterococcus faecalis. I will treat this with IV amoxicillin based on the best GALLO. White blood cell count is 9800 with 77 segs and 9 lymphs. H& H is stable 11.1/33.5. Potassium is low at 3.1. Creatinine is 0.5 with a BUN of 17. Patient's on replacement protocol. Cardiology is seeing the patient and he is in a regular sinus rhythm. I appreciate their help. Patient is doing well from a pulmonary standpoint. We will ask physical therapy and Occupational Therapy to continue follow and treat the patient. Patient has a generalized symmetrical tremor which is most prominent in the upper extremity 04/15/2017. Patient was seen along with Maggie Jain RN, the patient's and his [id number]. He was up most of the night I am told. He was sound asleep and his did not want to wake him up. She says he is talking a more complete sentences now. He is having a good bit of watery diarrhea. His stools are negative for C. difficile. He is previously been on lactulose. I am going to start him on Konsyl 1 tablespoon small glass of fluid now and after each bowel movement. Sodium is 150, potassium is 3.1, chloride is 114. Creatinine is 0.4 with a BUN of 16. Follow-up thyroid function test are normal. says the patient is requesting IV push ibuprofen. I have told her I am leaving this up to Dr. Patel and Dr. Beatty Microbiology. No positive cultures 04/16/2017. Patient was seen along with Maggie Jain RN and the patient's . Patient's having auditory hallucinations. I am not sure if he has visual hallucinations. He is more alert and he is using more words. He is still definitely confused. Sodium is 151. Potassium 3.9. Calcium is 8.4. There are no new positive cultures. Patient is gradually improving but he has a long ways to go. 04/17/2017. Patient is much more alert today and he can carry on a fairly good conversation. Patient is say that he has had an aversion to food predating this illness. His admit theophylline level was 17. We will repeat this. Theophylline level is elevated will reduce the dose. He is doing well from a pulmonary standpoint. I have also started him on a proton pump inhibitor and Carafate. Will check his amylase and his lipase. He denies any abdominal pain and is been no significant dysphasia. Medicines have been reviewed. Labs been reviewed. 04/18/2017 the patient seen along with his and the female resident. Tuan Philip nurse practitioner was present. Dr. Nelson and I have reviewed the case and have coordinated our care. Patient is more verbal today and he seems back to his normal self. Talk to oncology social work and they are working on placement of the shelter. Patient has a long history of recurrent iritis. He has underlying ankylosing spondylitis. 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 He now thinks he has a flare has a flare of iritis. I have consulted Dr. Benson to see the patient in ophthalmology consultation. I have reviewed Dr. Patel' s note and I agree 100% with his plans. His is asked me about nonsteroidals twice and I have told her that Dr. Patel is in charge of pain medicines.. From a renal standpoint the patient can tolerate nonsteroidals. Dr. Mckeon surgery note is been reviewed. Dr. Bhakta mother agrees patient is back to her neurological baseline . Physical exam. Vital signs. See below Psychiatric. Awake. Oriented 3. Able to carry on a conversation peer Neurologic. Speech is clear. Patient to move all 4 extremities. Generalized tremor in his upper extremities has resolved Chest. Clear Heart irregular at 80/min Abdomen. Rare bowel sounds Lower extremities. Very little edema Neck. Symmetrical with decreased range of motion secondary to ankylosing spondylitis Lymphatics. No submandibular cervical supraclavicular or epitrochlear adenopathy The remainder the physical exam is noncontributory Plan. 04/12/[address]70 1. Neurology consultation 2. CT of the head 3. Make a decision about anticoagulation as soon as possible 4. Ultrasounds of the carotids 5. Echocardiogram. Look for source of emboli 6. Consult physical therapy, Occupational Therapy and speech therapy 7. Double antibiotic coverage for gram-positive urinary tract infection until ID is known 8. Dr. Nelson and I have reviewed and discussed the case and we have coordinated our care. 9. Keep O2 sats 93% or above. Patient's a mild CO2 retainer but does not appear that he is going to be very sensitive to FiO2's unless he has a lot of neuro suppressive medications on board. 10. See orders Home Medications 04/13/2017 1. Atrial fib. Has a pacer. Consult cardiology. 2. Restart Tranxene and half dose fentanyl 3. Pickerel urine cultures is pending 4. See order 04/14/2017. 1. See today's note above. 2. Lexapro was added to the patient's regimen at the shelter. Could this be serotonin syndrome. 3. Change lactulose to as needed. 4. Stools for C. difficile number 5. Amoxicillin for Enterococcus faecalis urinary growth 6. See orders 04/15/2017. 1. See today's note above. 2. Konsyl for diarrhea 3. Replace potassium 04/16/2017. 1. see today's note above. 2. Potassium is 3.9. 04/17/2017. 1. Check theophylline level 2. Check amylase and lipase 3. Begin Carafate and proton pump inhibitor 4. Continue physical therapy and Occupational Therapy. 5. Advance diet as tolerated 04/18/2013. 1. See today's note above. 2. Theophylline level is 8.7. Exam (Progress Note) - Constitutional Vitals: Period Temp Pulse Resp BP Sys/Ivey Pulse Ox Last 24 Hr 96.8 F-98.7 F 76-103 17-20 112-131/57-72 91-99 Results - Labs CBC & BMP: 04/14/17 05:51 04/17/17 05:06 Specialty Discharge - Follow Up or Referrals Follow up with: Abel Patel MD [Physician] - 05/08/17 1:45 pm (bring paperwork with you to your appointment)
[2017-04-18] MEDS: LIDOCAINE 5% PATCH TRANSDERM SCH (10:32)
[2017-04-18] MEDS: SUCRALFATE 1 GM TABLET PO SCH ×4 (10:32→20:44)
[2017-04-18] MEDS: BISOPROLOL 5 MG TABLET PO SCH (10:32)
[2017-04-18] MEDS: FOLIC ACID 1 MG TABLET PO SCH (10:32)
[2017-04-18] MEDS: ASCORBIC ACID 500 MG TABLET PO SCH (10:32)
[2017-04-18] MEDS: THIAMINE 100 MG TABLET PO SCH (10:32)
[2017-04-18] MEDS: MULTIVITAMIN (CENTRUM) TABLET PO SCH (10:32)
[2017-04-18] MEDS: PANTOPRAZOLE 40 MG TABLET PO SCH (10:32)
[2017-04-18] MEDS: miSOPROStol 200 MCG TABLET PO SCH (10:32)
[2017-04-18] MEDS: CLORAZEPATE 3.75 MG TABLET PO SCH ×2 (10:32→20:43)
[2017-04-18] MEDS: THEOPHYLLINE ER 300 MG TABLET PO SCH ×2 (10:32→20:43)
[2017-04-18] MEDS: DESITIN 4OZ/NYSTATIN 15 GRAM MIXTURE PASTE TOP SCH ×2 (10:33→20:44)
--- NOTE | 2017-04-18 12:25 | Pain Management Progress Note ---
Assessment and Plan (1) Ankylosing spondylitis Problem details: Spinal pain secondary to ankylosing spondylitis Status: Chronic Assessment and plan: 04/18/2017. The patient is communicating better at this time. He is more awake and alert. He has no recollection of what happened over the past several days. He does have back pain with sitting. thinks a lot of this is anxiety related. He does complain of a lot of anxiety and what he describes as depression. We discussed medications today and my reluctance to start him on anything new at this point. I do think that if possible we should allow him to recover further and see how he is functioning over time before treating his anxiety with more medicines. They also asked about sleep medicine that he was on prior to this episode, and explained to him that again I would like him to be on less rather than more medications. n 04/17/2017. The patient is doing better overall. He is now communicating and complete sentences. He is now following commands. He can squeeze both my hands. Very little movement in the lower extremities but some movement of both feet. He did have some back pain with movement today and try to sit up in bed. He has some bilateral lower extremity pain secondary to severe peripheral neuropathy as well. The spinal pain is related to severe degenerative changes also related to the ankylosing spondylitis. He will need ongoing analgesic therapy in the form of the Duragesic. Long discussion with the patient's and will plan to keep him at the 25 mcg/h dosage without increase. Also will continue after discharge the low-dose Hoagland. I think that 5 mg every 8 hours is reasonable for him. We will not schedule muscle relaxers since they may have contributed to his confusion. Also we will plan to see him in the clinic and 2-3 weeks sooner if necessary. Discuss with the his therapy regime as well. She is to continue to work on his lower extremities between physical therapy visits. y 04/14/2017. Overall the patient appears to be about the same, may be following some commands, he did move both of his upper extremities for me today. Did not move lower extremities at all. He does look to be comfortable and in no obvious signs of pain or pain behavior at this time. I do think that the reduced dose of Duragesic is an excellent idea and over time we might reduce this further. It is too soon to reduce the dose at this time but will follow closely. n 04/13/2017. The patient is a very interesting 66-year-old male who is accompanied by his . History from his since he is noncommunicative. The patient unfortunately has multiple medical problems and for the past 2 days has been noncommunicative and not following commands upon my exam. He has a long history of spinal pain secondary to ankylosing spondylitis as well as a peripheral neuropathy with lower extremity weakness. He recently was at [facility] going to rehab. On my exam he would not follow commands and could not communicate with me. I saw no spontaneous movement of the lower extremities and very little spontaneous movement of upper extremities. According to the patient's much of this has been slowly progressive over time rather than abrupt. There is some question whether or not the patient's polypharmacy is playing a role in his confusion and and overall weakness. At this point I agree with the approach of cutting back on the opioids. Cutting back the Duragesic from 50 to 25 mcg is an excellent idea and should also help avoid withdrawal symptomatology. At this point since he cannot communicate pain I would not give him in the as needed's until we can establish that he has true breakthrough pain. Will cut back on the Tranxene at this time as well. The patient was on a relatively high dose of Robaxin according the while at the longterm and this has been eliminated. Will consider adjusting medicines going forward depending on his mental status however he will not be on the same type of medicines for pain as he was prior to this episode. I will continue to follow with you and help care for this very pleasant gentleman. y Current Visit: Yes Qualifiers: Ankylosing spondylitis location: multiple sites in spine Qualified Code(s) : M45.0 - Ankylosing spondylitis of multiple sites in spine Pain - Subjective Interval history: Improving communication, pain stable. Complains of anxiety Exam - Constitutional Vitals: Period Temp Pulse Resp BP Sys/Ivey Pulse Ox Last 24 Hr 97.9 F-98.7 F 76-103 17-20 112-131/50-72 91-99 Results - Labs CBC & BMP: 04/14/17 05:51 04/17/17 05:06 Specialty Discharge - Follow Up or Referrals Follow up with: Abel Patel MD [Physician] - 05/08/17 1:45 pm (bring paperwork with you to your appointment)
--- NOTE | 2017-04-18 12:56 | Hospitalist Progress Note ---
Assessment and Plan (1) Altered mental status Status: Acute Assessment and plan: 1)neuro changes, decreased LOC on admit- due to meds, UTI. acute stroke ruled out though on exam after admission he had lateralizing signs of stroke. More recently he has had hallucinations from withdrawal from narcotics, but these have stopped and he seems much more like the man I remember from his last admission. 2)HTN 3)ankylosing spondylitis- very limiting. Begin PT/OT. HE cannot turn his head well. 4)chronic pain- lidoderm and duragesic patch, tranxene. Dr Patel directing his care. 5)hypokalemia- replaced 6)Enterococcal UTI- On ampicillin IV. recheck UA and if clearing, consider stopping IV antibiotics. 7)dispo- will return to swing bed setting. Current Visit: Yes (2) Ankylosing spondylitis Problem details: Spinal pain secondary to ankylosing spondylitis Status: Chronic Current Visit: Yes Qualifiers: Ankylosing spondylitis location: multiple sites in spine Qualified Code(s) : M45.0 - Ankylosing spondylitis of multiple sites in spine (3) Peripheral polyneuropathy Status: Acute Current Visit: No (4) Status post biventricular pacemaker Status: Chronic Current Visit: No (5) HTN (hypertension) Status: Chronic Current Visit: Yes Hospitalist: Subjective Interval history: Mr Fischer is doing well today. He has no new complaints. His has been discussing swing bed placement with Seema, delinquency prevention social worker, and she has made referrals. Repeat urine today after a week of antibiotics for enterococcus UTI. Exam - Constitutional Vitals: Period Temp Pulse Resp BP Sys/Ivey Pulse Ox Last 24 Hr 97.9 F-98.7 F 76-103 17-20 112-131/50-72 91-99 General appearance: no acute distress, over weight - Head Head exam: Present: normocephalic, atraumatic - Eye Eye exam: Present: EOMI. Absent: scleral icterus - Respiratory Respiratory exam: Present: clear to auscultation bilaterally - Cardiovascular Cardiovascular exam: Present: regular rate and rhythm - GI/Abdominal GI/Abdominal exam: Present: normal bowel sounds, soft. Absent: tenderness - Extremities Exam Extremities exam: Present: edema Results - Labs CBC & BMP: 04/14/17 05:51 04/17/17 05:06 Lab Results: I have reviewed the past 24 hour labs Specialty Discharge - Follow Up or Referrals Follow up with: Abel Patel MD [Physician] - 05/08/17 1:45 pm (bring paperwork with you to your appointment)
--- NOTE | 2017-04-18 16:23 | Case Mgmt Physician Query Form ---
TB Signs and Symptoms Screening ([place]) INSTRUCTIONS: To be completed annually on residents/staff with a significant Tuberculin Skin Test (TST) upon admission/hire or a prior significant TST. To be completed on all staff at hire. Please respond to each listed symptom with an (X) in either the "YES" or "NO" box. Do you currently have any of the following symptoms: YES NO ( ) ( x) A cough If yes, is it: ( ) Productive ( ) Non- productive ( ) (x ) Hemoptysis (spitting up blood) ( ) (x ) Chest pains ( ) (x ) Weight Loss ( ) (x) Fever ( ) (x ) Night Sweats (x ) ( ) Weakness ( ) (x ) Loss of Appetite ( ) (x ) Difficulty Breathing If you answered YES" to any of the above questions, how long have symptoms been present? he is weak from ankylosing spondylitis for years Comments: If you have any questions, please contact me . Thank you, Seema ALATORRE Email: [email or web address] [facility]ITAL[facility]
[2017-04-18] MEDS: DEXTROSE 5% 1,000 ML IV SCH ×2 (16:37→20:18)
--- NOTE | 2017-04-18 17:49 | Ophthalmology Consultation ---
Assessment and Plan (1) Recurrent iritis of both eyes Status: Acute Assessment and plan: The intraocular pressure today by Kendall-Pen is 15 in both eyes.... His bedside visual acuity is 20/40 in both eyes. Extraocular motility is intact... Externally there are no signs of inflammation seen. The conjunctivae are quiet both eyes. Dilated fundus exam is deferred at this time. . Currently Mr. Fischer's eyes are quiet and do not appear to have recurrent iritis. I would like to have him come to the office for a slit lamp exam and a check of his refraction. His states he will be getting out of the hospital tomorrow and will be starting rehabilitation. They will come to my office within 1 week as soon as he is able. Current Visit: Yes History of Present Illness Chief complaint: tearing and mild discomfort left eye History of present illness: Mr. Fischer is a 66 year old male with ankylosing spondylitis and history of recurrent iritis in both eyes. Prior to this hospitalization he was treating the right eye with topical steroids and atropine for an iritis flareup. He currently is having some mental status changes so the history is given mostly by his today. She was concerned that he may be having an early flareup in the contralateral eye today. She mostly wanted to talk with an eye doctor because of his past history. His past ocular history includes cataract. 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 Home Medications Medication Instructions Recorded Confirmed Type Imipramine HCl 25 mg PO DAILY 02/20/17 04/11/17 History Levothyroxine Tab [Synthroid Tab] 100 mcg PO DAILY 02/20/17 04/11/17 History Potassium Chloride Liquid 15 ml PO BID 02/20/17 04/11/17 History Theophylline ER Tab 300 mg PO Q12H 02/20/17 04/11/17 History Bisoprolol [Zebeta] 5 mg PO DAILY tablet 03/02/17 04/11/17 Rx Folic Acid Tab 1 mg PO DAILY tablet 03/02/17 04/11/17 Rx Lidocaine 5% Patch [Lidoderm 5% 1 patch TRANSDERM DAILY patch 03/02/17 Rx Patch] Multivitamin (Centrum) [Centrum 1 tablet PO DAILY tablet 03/02/17 04/11/17 Rx Tab] Thiamine Tab [Vitamin B1 Tab] 100 mg PO DAILY tablet 03/02/17 04/11/17 Rx amLODIPine [Norvasc] 10 mg PO DAILY tablet 03/02/17 04/11/17 Rx miSOPROStol [Cytotec] 200 mcg PO DAILY tablet 03/02/17 04/11/17 Rx HYDROcodone/ACETAMIN 10-325 [[place] 1 tablet PO TID PRN 03/14/17 04/11/17 History 10-325] Albuterol Sulfate [Albuterol Neb] 2.5 mg RESP TX TID 04/11/17 04/11/17 History Ascorbic Acid Tab [Vitamin C Tab] 500 mg PO DAILY 04/11/17 04/11/17 History Bisacodyl Tab [Dulcolax Tab] 5 mg PO DAILY PRN 04/11/17 04/11/17 History Clorazepate [Tranxene] 7.5 mg PO BID 04/11/17 04/11/17 History Furosemide Tab [Lasix Tab] 40 mg PO DAILY 04/11/17 04/11/17 History Ibuprofen Tab [Motrin Tab] 400 mg PO BID 04/11/17 04/11/17 History Lactulose Liquid [Chronulac] 30 ml PO BID 04/11/17 04/11/17 History Magnesium Hydroxide Susp [Milk of 30 ml PO DAILY PRN 04/11/17 04/11/17 History Magnesia] Methocarbamol Tab [Robaxin Tab] 1,000 mg PO TID 04/11/17 04/11/17 History Trazodone HCl 100 mg PO DAILY 04/11/17 04/11/17 History Zaleplon [Sonata] 10 mg PO DAILY 04/11/17 04/11/17 History fentaNYL [Fentanyl 50 mcg/hr Patch] 1 patch TRANSDERM Q3DAY 04/11/17 04/11/17 History Allergies Allergy/AdvReac Type Severity Reaction Status Date / Time codeine Allergy Unknown UNRESPONSIV Verified 04/12/17 00:48 E acetaminophen [From Percocet] Allergy Verified 04/12/17 00:48 escitalopram [From Lexapro] Allergy Verified 04/12/17 00:48 gabapentin [From Neurontin] Allergy Verified 04/12/17 00:48 Hydromorphone [From Dilaudid] Allergy Verified 04/12/17 00:48 Oxycodone [From Percocet] Allergy Verified 04/12/17 00:48 Medical,Surgical,& Family Hx - Medical History Cardio: History of: CAD, Hypertension, Pacemaker (Dual-chamber on February 28, 2007- Dr. Clemens) No history of: CT, PVD Psychological: History of: Anxiety Disorders, Depression Neurology: History of: Vertigo HEENT: History of: Eye Problem (WEARS GLASSES, NEAR SIGHTED, CATARACT LEFT EYE) Endocrine: History of: Thyroid Disorder No history of: Diabetes Mellitus (IDDM), Diabetes Mellitus (NIDDM), Dyslipidemia Respiratory: History of: Bronchitis, COPD, Intubation, Pulmonary Hypertension, Pneumonia Renal: No history of: Renal Problems Genitourinary: History of: Prostate Problems (PROSTATE CA) Gastrointestinal: History of: Gastrointestinal Bleed, Hemorrhoids Musculoskeletal: History of: Back/Neck Problems, Degenerative Disk Disease, Herniated Disk, Musculoskeletal Problems (suspected MS, fx T-) Other: History of: Cancer, Miscellaneous Medical Problems (ankylosing spondylitis) - Surgical History Cardiac Surgeries: Patient Denies: Femoral-Popliteal Bypass Graft, Cardiac Catheterization, Cardiac Surgery, Carotid Endarterectomy, Internal Defibrillator, Vascular Access Devices Thoracic Surgeries: Patient denies;: Organ Transplant Neurologic Surgeries: Patient denies: Neurologic Surgery HEENT Surgeries: Surgical HX of: Tonsilectomy & Adenoidectomy Patient denies: Carotid Endarterectomy Abdominal Surgeries: Patient denies: Abdominal Surgery, Splenectomy Reproductive Surgeries: Surgical HX of;: Genitourinary Surgery, Prostate Surgery (PROSTATECTOMY) Orthopedic Surgeries: Surgical HX of;: Orthopedic Surgery (RIGHT ANKLE FRACTURE) - Family History Family History: Reports;: Family Cancer (FATHER (TESTICULAR CA)), Family Diabetes (FATHER), Family Heart Disease (MOTHER), Family Hypertension - Social History Smoking Status: Former smoker Frequency of Alcohol Use: Occasionally Type of Drug Use: None Ophthalmology Exam - Constitutional Vitals: Vital Signs Temp Pulse Resp BP Pulse Ox 98.0 F 99 H 20 125/73 92 L 04/18/17 15:20 04/18/17 15:20 04/18/17 15:20 04/18/17 15:20 04/18/17 15:20 Intake and Output 04/18/17 04/18/17 04/18/17 07:59 15:59 23:59 Intake Total 60 / 60 100 / 100 1000 / 1000 Output Total 4 / 4 Balance 60 / 60 96 / 96 1000 / 1000 Intake: IV 100 / 100 1000 / 1000 Ampicillin Inj 1,000 mg 100 / 100 In Ns 100 ml @ 200 mls/hr IV Q8H STEPHANIE Rx#: [id number] D5 1,000 ml @ 75 mls/hr 1000 / 1000 IV [id number] STEPHANIE Rx#: [id number] Oral 60 / 60 Output: Urine 2 / 2 Stool 2 / 2 Other: Voiding Method Brief # Voids 3 Weight 118.529 kg Patient Weight 04/18/17 23:59 Weight 118.529 kg - Expanded Eye Exam Eye Exam Eyelids: bilateral: normal inspection Pupils: Bilateral: regular, round Sclera: bilateral: normal inspection Anterior chamber: bilateral: normal inspection Posterior chamber: bilateral: deferred Results - Labs CBC & BMP: 04/14/17 05:51 04/17/17 05:06 Specialty Discharge - Follow Up or Referrals Follow up with: Abel Patel MD [Physician] - 05/08/17 1:45 pm (bring paperwork with you to your appointment)
[2017-04-18] MEDS ORDERED: TUBERCULIN SKIN TEST 0.1 ML SYRINGE INTRADERM ONE (18:09)
[2017-04-19] MEDS: LEVOTHYROXINE 100 MCG TABLET PO SCH (06:02)
[2017-04-19] MEDS: AMPICILLIN INJ 1,000 MG in SODIUM CHLORIDE 0.9% 100 ML IV SCH (06:02)
[2017-04-19] MEDS: ALBUTEROL 2.5 MG/3 ML NEB RESP TX SCH (07:28)
[2017-04-19] MEDS: LIDOCAINE 5% PATCH TRANSDERM SCH (08:24)
[2017-04-19] MEDS: SUCRALFATE 1 GM TABLET PO SCH (08:24)
[2017-04-19] MEDS: CLORAZEPATE 3.75 MG TABLET PO SCH (08:24)
[2017-04-19] MEDS: MULTIVITAMIN (CENTRUM) TABLET PO SCH (08:24)
[2017-04-19] MEDS: PANTOPRAZOLE 40 MG TABLET PO SCH (08:25)
[2017-04-19] MEDS: ASCORBIC ACID 500 MG TABLET PO SCH (08:25)
[2017-04-19] MEDS: miSOPROStol 200 MCG TABLET PO SCH (08:25)
[2017-04-19] MEDS: DESITIN 4OZ/NYSTATIN 15 GRAM MIXTURE PASTE TOP SCH (08:25)
[2017-04-19] MEDS: THEOPHYLLINE ER 300 MG TABLET PO SCH (08:25)
[2017-04-19] MEDS: fentaNYL 25 MCG/HR PATCH TRANSDERM SCH (08:25)
[2017-04-19] MEDS: FOLIC ACID 1 MG TABLET PO SCH (08:25)
[2017-04-19] MEDS: BISOPROLOL 5 MG TABLET PO SCH (08:25)
[2017-04-19] MEDS: THIAMINE 100 MG TABLET PO SCH (08:26)
--- NOTE | 2017-04-19 09:50 | Discharge Summary ---
Hospital Course - Hospital Course Hospital Course: Mr Fischer presented with coma from narcotics and UTI. He was on several narcotics, anxiolytics and psychotropics which were stopped and have been resumed at lower doses under the direction fo Dr Patel who will be managing them from now on. He woke after the meds were held a couple of days and is back to his baseline mental status. Dr Ramírez and I collaborated daily in the care of this patient including reviewing the meds with the patient today at discharge. - Time spent with patient Time with patient DS: Greater than 30 minutes (40 minutes spent in discharge planning, medicine reconciliation, documentation, coordination of care.) Diagnosis - Discharge Diagnosis (1) Altered mental status Status: Resolved (2) Ankylosing spondylitis Status: Chronic (3) Peripheral polyneuropathy Status: Chronic (4) Status post biventricular pacemaker Status: Chronic (5) HTN (hypertension) Status: Chronic Specialty Discharge - Follow Up or Referrals Follow up with: Abel Patel MD [Physician] - 05/08/17 1:45 pm (bring paperwork with you to your appointment) Bala Ramírez MD [Primary Care Provider] - 05/19/17 12:40 pm (1 month appointment.) Discharge Plan - Discharge Data Disposition: Disch/Xfer to Snf Condition at Discharge: Stable Discharge Diet: heart healthy Activity: as per physical therapy - Discharge Medications New Clorazepate [Tranxene] 3.75 mg PO BID #60 tablet fentaNYL 25 MCG/HR PATCH [Duragesic 25 Patch] 1 patch TRANSDERM Q3DAY #10 patch HYDROcodone/ACETAMIN 5-325 [[place] 5-325] 1 tablet PO Q8H PRN #90 tablet PRN Reason: Pain Moderate (4-7) Skin Healing Oint (Aquaphor) [Aquaphor] 1 applic TOP PRN PRN applic PRN Reason: Dry Skin Continue Imipramine HCl 25 mg PO DAILY Levothyroxine Tab [Synthroid Tab] 100 mcg PO DAILY Folic Acid Tab 1 mg PO DAILY tablet Lidocaine 5% Patch [Lidoderm 5% Patch] 1 patch TRANSDERM DAILY patch miSOPROStol [Cytotec] 200 mcg PO DAILY tablet Thiamine Tab [Vitamin B1 Tab] 100 mg PO DAILY tablet Bisacodyl Tab [Dulcolax Tab] 5 mg PO DAILY PRN PRN Reason: Constipation Ascorbic Acid Tab [Vitamin C Tab] 500 mg PO DAILY Lactulose Liquid [Chronulac] 30 ml PO BID Theophylline ER Tab 300 mg PO Q12H Bisoprolol [Zebeta] 5 mg PO DAILY tablet Multivitamin (Centrum) [Centrum Tab] 1 tablet PO DAILY tablet Albuterol Sulfate [Albuterol Neb] 2.5 mg RESP TX TID Discontinued Potassium Chloride Liquid 15 ml PO BID amLODIPine [Norvasc] 10 mg PO DAILY tablet Magnesium Hydroxide Susp [Milk of Magnesia] 30 ml PO DAILY PRN PRN Reason: Constipation fentaNYL [Fentanyl 50 mcg/hr Patch] 1 patch TRANSDERM Q3DAY Clorazepate [Tranxene] 7.5 mg PO BID Zaleplon [Sonata] 10 mg PO DAILY Furosemide Tab [Lasix Tab] 40 mg PO DAILY Methocarbamol Tab [Robaxin Tab] 1,000 mg PO TID Trazodone HCl 100 mg PO DAILY Ibuprofen Tab [Motrin Tab] 400 mg PO BID HYDROcodone/ACETAMIN 10-325 [[place] 10-325] 1 tablet PO TID PRN PRN Reason: Pain Moderate To Severe (4-10) - Follow Up or Referral Follow Up: Abel Patel MD [Physician] - 05/08/17 1:45 pm (bring paperwork with you to your appointment) Bala Ramírez MD [Primary Care Provider] - 05/19/17 12:40 pm (1 month appointment.) - Forms/Instructions Instructions: Chronic Obstructive Pulmonary Disease (DC) Exam - Constitutional Vitals: Period Temp Pulse Resp BP Sys/Ivey Pulse Ox Last 24 Hr 97.5 F-98.0 F 82-107 16-20 118-136/50-82 89-96 General appearance: no acute distress, over weight - Head Head exam: Present: normocephalic, atraumatic - Eye Eye exam: Present: EOMI. Absent: scleral icterus - Respiratory Respiratory exam: Present: clear to auscultation bilaterally - Cardiovascular Cardiovascular exam: Present: regular rate and rhythm - GI/Abdominal GI/Abdominal exam: Present: normal bowel sounds, soft. Absent: tenderness - Extremities Exam Extremities exam: Absent: edema Discharge Results Procedures and tests throughout hospitalization: Pending Orders 04/19/17 08:37 Urinalysis Stat Labs on day of discharge: Labs from last 24 hours 04/19/17 04/18/17 04/18/17 07:38 19:27 10:48 POC Glucose 117 H 142 H 134 H DS: Provider Date of admission: 04/11/17 21:32 Primary care physician: Bala Ramírez MD Attending physician on admission: Eufemia Cole MD Consults: 04/12/17 00:03 Consult to Occupational Therapy [CONS] Routine Reason for Occupational Therapy: Evaluate and Treat Consult to Physical Therapy [CONS] Routine Reason for Physical Therapy: Evaluate and Treat Consult to Physician [CONS] Routine Comment: AMS Consulting Provider: Shahzad Thacker Consulting Provider Notified: Yes Consult to Specialist Group: Neurology When should Consulting Provider be notified: In am Person Notified: clay Date Notified: 04/12/17 Time Notified: 08:35 04/12/17 00:30 Consult to Physician [CONS] Routine Comment: Consulting Provider: Bala Ramírez When should Consulting Provider be notified: In am Consult to Specialist Group: Pulmonology Person Notified: MD gold 04/12/17 00:31 Consult to Dietitian [CONS] Routine Reason for Dietitian: Dietary Consult 04/12/17 09:43 Consult to Occupational Therapy [CONS] Routine Reason for Occupational Therapy: Evaluate and Treat Consult to Physical Therapy [CONS] Routine Reason for Physical Therapy: Evaluate and Treat 04/13/17 09:49 Consult to Physician [CONS] Routine Comment: Atrial fib. Cardiac pacer altered mental status. Consulting Provider: Khoa Anguiano Person Notified: Kelly Date Notified: 04/13/17 Time Notified: 09:56 04/13/17 13:09 Consult to Physician [CONS] Routine Comment: pain case management assistant Provider: Abel Patel When should Consulting Provider be notified: Vinay Date Notified: 04/13/17 Time Notified: 13:16 04/15/17 09:44 Consult to Physician [CONS] Routine Comment: pt known to you, has a wound on coccyx Consulting Provider: Hua Odell Person Notified: Audrey Date Notified: 04/17/17 Time Notified: 10:17 04/17/17 15:17 Consult to Wound Care - [place] [CONS] Routine Reason for Wound Care: Other Consult Comment: sports bed 04/18/17 09:26 Consult to Physician [CONS] Routine Comment: poss. iritis; ankylosing spondylitis Consulting Provider: Horace Benson Person Notified: Sneha Date Notified: 04/18/17 Time Notified: 10:21 Discharging clinician: Donna Sherman MD
--- NOTE | 2017-04-19 10:16 | Pulmonology Progress Note ---
Pulmonary - PN: Subj Interval history: This is a 66-year-old white male longtime patient of mine. I saw this patient consultation on 04/12/2017. My impressions were. 1. Acute CVA. Speech and right body appear to be involved. 2. Altered mental status. Most likely secondary to #1. CT scan of the brain is pending 3. Ankylosing spondylitis and probable spinal stenosis. Anatomy and pain limit mobility. 4. Past history of T9 compression fracture requiring kyphosis. October 2013. 5. Peripheral sensory neuropathy. Symptoms are gradually worsened over time. 6. Chronic venous stasis of the lower extremities. Improved 7. Vitamin B12 deficiency. On replacement 8. Past history tobacco abuse. None now. 9. COPD/asthma 10. Past history of high blood pressure 11. Hypothyroidism. On replacement 12. Hyperlipidemia 13. Past history of prostate cancer. Resected. No evidence of recurrence 14. See past. 15. Dual-chamber cardiac pacer 16. Acute urinary tract infection. Gram-positive cocci 04/13/2017. Patient was seen along with his . Later I discussed the case with Dr. Beatty and we coordinated our care. Patient's having hallucinations. He still does not move his right side well and his speech seems to be off. CT of his brain was negative. Ultrasounds of the carotid showed disease but not severe. Patient has slipped in the atrial fib.I had him on Lopressor. I will change back to his home medicine. zebet which is a beta-shana. She is concerned about drug withdrawal. Will restart fentanyl at 25 mcg which is one half the previous dose and will restart Tranxene at 7.5 mg twice daily. Note the patient was previously on does a real 100 mg daily, [place] 10, 3 times a day, Sonata 10 mg daily, Robaxin thousand milligrams 3 times daily, lidocaine patch, imipramine 25 mg daily. These have not been continued. Other medicines such as his thyroid medicine were restarted today. Patient been evaluated by speech therapy and he is okay for a pured diet. He is also being seen by occupational therapy and physical therapy. Microbiology shows a gram-positive cocci growing from the urine. ID is still pending. White count is 12,000 with 83 segs. H&H is stable 11.8/35.5 and platelets are 222,000. Electrolytes are normal. Creatinine is 0.4 and BUN is 15. Echocardiogram shows ejection fraction of 60%. Mild mitral regurgitation and mild aortic insufficiency. 04/14/2017. Patient was seen along with his , Tuan Philip nurse practitioner, Mary Anne Jain RN. I appreciate Dr. Abel Patel's note from yesterday. Patient is still hallucinating but he is a little more alert and he makes facial comments and occasional verbal comments about what is being said by me and by his . This patient had been on long-term does not really this worked well for him. [facility] he was [facility] the [facility] he was started on Lexapro. I wonder if some of what we are seeing is serotonin syndrome. Patient is having some diarrhea. I have changed his lactulose to as needed. We will check his stools to make sure he does not have C. difficile. His urine has grown Enterococcus faecalis. I will treat this with IV amoxicillin based on the best GALLO. White blood cell count is 9800 with 77 segs and 9 lymphs. H& H is stable 11.1/33.5. Potassium is low at 3.1. Creatinine is 0.5 with a BUN of 17. Patient's on replacement protocol. Cardiology is seeing the patient and he is in a regular sinus rhythm. I appreciate their help. Patient is doing well from a pulmonary standpoint. We will ask physical therapy and Occupational Therapy to continue follow and treat the patient. Patient has a generalized symmetrical tremor which is most prominent in the upper extremity 04/15/2017. Patient was seen along with Maggie Jain RN, the patient's and his [id number]. He was up most of the night I am told. He was sound asleep and his did not want to wake him up. She says he is talking a more complete sentences now. He is having a good bit of watery diarrhea. His stools are negative for C. difficile. He is previously been on lactulose. I am going to start him on Konsyl 1 tablespoon small glass of fluid now and after each bowel movement. Sodium is 150, potassium is 3.1, chloride is 114. Creatinine is 0.4 with a BUN of 16. Follow-up thyroid function test are normal. says the patient is requesting IV push ibuprofen. I have told her I am leaving this up to Dr. Patel and Dr. Beatty Microbiology. No positive cultures 04/16/2017. Patient was seen along with Maggie Jain RN and the patient's . Patient's having auditory hallucinations. I am not sure if he has visual hallucinations. He is more alert and he is using more words. He is still definitely confused. Sodium is 151. Potassium 3.9. Calcium is 8.4. There are no new positive cultures. Patient is gradually improving but he has a long ways to go. 04/17/2017. Patient is much more alert today and he can carry on a fairly good conversation. Patient is say that he has had an aversion to food predating this illness. His admit theophylline level was 17. We will repeat this. Theophylline level is elevated will reduce the dose. He is doing well from a pulmonary standpoint. I have also started him on a proton pump inhibitor and Carafate. Will check his amylase and his lipase. He denies any abdominal pain and is been no significant dysphasia. Medicines have been reviewed. Labs been reviewed. 04/18/2017 the patient seen along with his and the female resident. Tuan Philip nurse practitioner was present. Dr. Nelson and I have reviewed the case and have coordinated our care. Patient is more verbal today and he seems back to his normal self. Talk to social work nurse and they are working on placement of the [facility]. Patient has a long history of recurrent iritis. He has underlying ankylosing spondylitis. He previously worked for an [employer] and the patient is pretty much taken his own medicine for this. He now thinks he has a flare has a flare of iritis. I have consulted Dr. Benson to see the patient in ophthalmology consultation. I have reviewed Dr. Patel' s note and I agree 100% with his plans. His is asked me about nonsteroidals twice and I have told her that Dr. Patel is in charge of pain medicines.. From a renal standpoint the patient can tolerate nonsteroidals. Dr. Mckeon surgery note is been reviewed. Dr. Bhakta mother agrees patient is back to her neurological baseline . 04/19/2017. Patient was seen along with his , another female family member, Tuan Philip nurse practitioner, and Dr. Nelson. We decided to add imipramine 25 at bedtime which was a home medicines and the patient is taken for panic. We however reemphasized to the patient and his to Dr. Abel Patel is in charge of his pain medicines and psychotropic medicines and we hope this change will be okay. Occasionally patient deoxygenates when he is lying in bed. This is of ventilation/perfusion mismatch because of the size of the stomach. Discussed this with the patient and his in a few deep breaths all to raise his O2 and about 45-[address] Horace Benson's ophthalmology consultation. He will be followed in the patient's iritis from this point on. We have reviewed all the medicines and everybody is in agreement on what Mr. Fischer will take. I have made him a follow-up appointment to see me down the road. Patient's urinalysis is pending if this is negative his amoxicillin can be stopped. His discharge medicines will be nebulizer with albuterol, vitamin C 500 mg daily Dulcolax suppository daily, set beta 5 mg once a day, Tranxene 3.75 twice daily. Duragesic 25 mcg/h patch every 72 hours, folic acid 1 mg daily, hydrocodone/acetaminophen, 53 25 one every 8 hours. , Centrum vitamin once a day, Synthroid 100 mcg daily, Lidoderm patch, milk of magnesia as needed, Cytotec 200 mcg daily, nystatin/zinc oxide's side applications twice daily, K-Dur 20 milliequivalents daily, Hydrocil powder 1 packet as needed, theophylline 300 mg twice daily, vitamin B 100 mg daily The patient has a follow-up appointment to be seen in my office. He will be admitted to a [facility]. Physical exam. Vital signs. See below Psychiatric. Awake. Oriented 3. Able to carry on a conversation peer Neurologic. Speech is clear. Patient to move all 4 extremities. Generalized tremor in his upper extremities has resolved Chest. Clear Heart irregular at 80/min Abdomen. Rare bowel sounds Lower extremities. Very little edema Neck. Symmetrical with decreased range of motion secondary to ankylosing spondylitis Lymphatics. No submandibular cervical supraclavicular or epitrochlear adenopathy The remainder the physical exam is noncontributory Plan. 04/12/[address]70 1. Neurology consultation 2. CT of the head 3. Make a decision about anticoagulation as soon as possible 4. Ultrasounds of the carotids 5. Echocardiogram. Look for source of emboli 6. Consult physical therapy, Occupational Therapy and speech therapy 7. Double antibiotic coverage for gram-positive urinary tract infection until ID is known 8. Dr. Nelson and I have reviewed and discussed the case and we have coordinated our care. 9. Keep O2 sats 93% or above. Patient's a mild CO2 retainer but does not appear that he is going to be very sensitive to FiO2's unless he has a lot of neuro suppressive medications on board. 10. See orders Home Medications 04/13/2017 1. Atrial fib. Has a pacer. Consult cardiology. 2. Restart Tranxene and half dose fentanyl 3. [place] urine cultures is pending 4. See order 04/14/2017. 1. See today's note above. 2. Lexapro was added to the patient's regimen at the [facility]. Could this be serotonin syndrome. 3. Change lactulose to as needed. 4. Stools for C. difficile number 5. Amoxicillin for Enterococcus faecalis urinary growth 6. See orders 04/15/2017. 1. See today's note above. 2. Konsyl for diarrhea 3. Replace potassium 04/16/2017. 1. see today's note above. 2. Potassium is 3.9. 04/17/2017. 1. Check theophylline level 2. Check amylase and lipase 3. Begin Carafate and proton pump inhibitor 4. Continue physical therapy and Occupational Therapy. 5. Advance diet as tolerated 04/18/2017. 1. See today's note above. 2. Theophylline level is 8.7. 04/19/2017. 1. See my note above. 2. I will sign off. Reconsult whenever Exam (Progress Note) - Constitutional Vitals: Period Temp Pulse Resp BP Sys/Viey Pulse Ox Last 24 Hr 96.7 F-98.0 F 82-109 16-20 118-149/50-82 89-96 Results - Labs CBC & BMP: 04/14/17 05:51 04/17/17 05:06 Specialty Discharge - Follow Up or Referrals Follow up with: Abel Patel MD [Physician] - 05/08/17 1:45 pm (bring paperwork with you to your appointment)
[2017-04-19] MEDS: DEXTROSE 5% 1,000 ML IV SCH (10:41)
[2017-04-19 11:28] VITALS: BP 116/61
[2017-04-19 12:09] LABS: Apearance,Urine Slightly Hazy (Clear); Bilirubin,Urine Negative (Negative); Blood, Urine Negative (Negative); Glucose,Urine (UA) Negative (Negative); Ketones,Urine 5 mg/dL (Negative); Mucus,Urine Occasional /LPF (Occasional); Nitrite,Urine Negative (Negative); Protein,Urine Negative; RBC,Urine 1 /HPF (0-4); Squamous Epithelial Cell,Urine Occasional /HPF (0-10); Urine Color Yellow (Yellow); Urine Specific Gravity 1.017 (1.001-1.035); Urine Urobilinogen < 2.0 EU/DL (0.2-1.0); WBC,Urine 4 /HPF (0-6)
[2017-04-20] MEDS ORDERED: miSOPROStol 200 MCG TABLET PO SCH (09:00)
== END 2017-04-19 11:40 | DRG 91 ==
LOC: EDBD → EDUNIT# → N.ED 17:40 → SUATTDRO 21:32 → N.EDINP 22:21 → SUATTDRO 22:21 → N.5E 22:47 → N.ICU 04-12 01:23 → N.5E 04-12 18:10
PROVIDERS: ADMIT Internal Medicine; ATTEND Internal Medicine

== ENCOUNTER 2017-05-03 20:35 | Inpatient (IN) ==
[2017-05-03] MEDS ORDERED: SODIUM CHLORIDE 0.9% 500 ML IV STA (21:08)
[2017-05-03 21:25] LABS: Basophils # 0.1 10*3/uL (0.0-0.2); Basophils % 0.9 % (0.0-0.8); Eosinophils # 0.1 10*3/uL (0.0-0.87); Eosinophils % 1.5 % (0.00-10.9); Hematocrit 36.7 VOL% (42.0-52.0); Immature Granulocytes % 0.5 %; Immature Granulocytes Absolute 0.04 #; Lymphocytes % 11.9 % (21.2-54.2); Mean Corpuscular HGB Conc 32.7 GM/DL (32-36); Mean Corpuscular Hemoglobin 33 PG (27-34); Mean Corpuscular Volume 101.7 FL (87-102); Mean Platelet Volume 11.4 FL (9.6-12.0); Monocytes % 11.7 % (1.7-12.7); Neutrophils # 6.3 10*3/uL (1.4-7.4); Neutrophils % 73.5 % (38.7-73.9); Platelet Count 206 T/CUMM (130-400); Red Blood Count 3.61 MC/CUMM (3.8-5.5); Red Cell Distribution Width 13.7 % (9.3-17.3); White Blood Count 8.6 T/CUMM (4-12)
[2017-05-03 21:59] LABS: Alanine Aminotransferase 27 U/L (16-61); Albumin 2.6 G/DL (3.4-5.0); Alkaline Phosphatase 152 U/L (45-117); Aspartate Amino Transferase 28 U/L (0-37); Blood Urea Nitrogen 9 MG/DL (7-18); Calcium 8.5 MG/DL (8.5-10.1); Glucose 110 MG/DL (74-106); Magnesium 2.5 MG/DL (1.8-2.4); Osmolality,Calculated 276.5 MOS/KG (273-304); Potassium 4.5 MMOL/L (3.5-5.1); Sodium 139 MMOL/L (136-145); Total Protein 6.3 G/DL (6.4-8.3); Troponin I Only < 0.015 NG/ML (0.00-0.045)
[2017-05-03 22:01] LABS: Platelet Estimate Adequate
[2017-05-03 22:37] LABS: Apearance,Urine CLOUDY (Clear); Bacteria,Urine Many /HPF (Few); Bilirubin,Urine Negative (Negative); Blood, Urine Moderate mg/dL (Negative); Glucose,Urine (UA) Negative (Negative); Ketones,Urine 5 mg/dL (Negative); Mucus,Urine Many /LPF (Occasional); Nitrite,Urine Positive (Negative); Protein,Urine 100 MG/DL; RBC,Urine 75 /HPF (0-4); Squamous Epithelial Cell,Urine Occasional /HPF (0-10); Urine Color Yellow (Yellow); Urine Specific Gravity 1.023 (1.001-1.035); Urine Urobilinogen < 2.0 EU/DL (0.2-1.0); WBC,Urine 1460 /HPF (0-6)
[2017-05-03] MEDS ORDERED: cefTRIAXone 1,000 MG in SODIUM CHLORIDE 0.9% 100 ML IV STA (23:11)
[2017-05-04] MEDS ORDERED: cefTRIAXone 1,000 MG VIAL ONE (00:49)
--- NOTE | 2017-05-04 01:25 | Emergency Department Note ---
I, Judith Booker, am scribing for, and in the presence of, Dat Don MD 21: 30. IArian Kevin Lee, MD, personally performed the services described in this documentation, ascribed by Judith Booker in my presence, and it is both accurate and complete . Arrival - Arrival Chief Complaint: Shortness of Breath Stated Complaint: AMS ED Nursing Triage Note: Patient is a resident from [facility] who was transferred for altered mental status and low O2 saturation. O2 saturation 77% upon EMS arrival. Patient placed on non-rebreather and O2 saturation came up to 100%. Patient on 4L O2 with an O2 saturation of upon triage. Patient has a history of COPD, HTN, pacemaker, and ankylosing spondylitis of spine. Patient awake and alert, but unable to answer questions upon triage. Mode of Arrival: Stretcher Limitations: No Limitations Source: Patient, Significant other - History of Present Illness HPI Narrative: Pt is a 66 y/o male who was transferred from [facility] for further evaluation of AMS and low O2 saturation this evening. Pt's O2 saturation 77% upon EMS arrival. Patient placed on non-rebreather and O2 saturation came up to 100%. Pt on 4L O2 with an O2 saturation of upon triage. PMHx of COPD, HTN, pacemaker , and ankylosing spondylitis of spine. Pt is alert and oriented x3 in ED, answering questions appropriately. Spouse notes that past few weeks they have been tapered pain medications of fetanoyl and tranzine to hopefully getting off the medications all together. Spouse notes with each decrease of the dosage the sxs seems to be worsening due to seizure-like activity increasing. Pt having tremors, slurred speech - jumbling words together, extremities weaken, SOB and O2 sat decreased. Spouse notes his speech was mildly slurred this episode. Spouse reports being in ED one week ago with same sxs with nml results , however, found severe constipation before. Spouse notes pt has been seen by a neurologist but only told this was chemical induced sxs. Pt does c/o mild lower back pain. Onset (ago): hour(s) Consistency: intermittent Severity: mild, moderate Severity scale (1-10): 4 Quality: other Allergies/Adverse Reactions: Allergies Allergy/AdvReac Type Severity Reaction Status Date / Time codeine Allergy Unknown UNRESPONSIV Verified 04/12/17 00:48 E acetaminophen [From Percocet] Allergy Verified 04/12/17 00:48 escitalopram [From Lexapro] Allergy Verified 04/12/17 00:48 gabapentin [From Neurontin] Allergy Verified 04/12/17 00:48 Hydromorphone [From Dilaudid] Allergy Verified 04/12/17 00:48 Oxycodone [From Percocet] Allergy Verified 04/12/17 00:48 Home Medications: Home Medications Medication Instructions Recorded Confirmed Type Imipramine HCl 25 mg PO DAILY 02/20/17 05/03/17 History Levothyroxine Tab [Synthroid Tab] 100 mcg PO DAILY 02/20/17 05/03/17 History Theophylline ER Tab 300 mg PO Q12H 02/20/17 05/03/17 History Bisoprolol [Zebeta] 5 mg PO DAILY tablet 03/02/17 05/03/17 Rx Folic Acid Tab 1 mg PO DAILY tablet 03/02/17 05/03/17 Rx Lidocaine 5% Patch [Lidoderm 5% 1 patch TRANSDERM DAILY patch 03/02/17 Rx Patch] Multivitamin (Centrum) [Centrum 1 tablet PO DAILY tablet 03/02/17 05/03/17 Rx Tab] Thiamine Tab [Vitamin B1 Tab] 100 mg PO DAILY tablet 03/02/17 05/03/17 Rx miSOPROStol [Cytotec] 200 mcg PO DAILY tablet 03/02/17 05/03/17 Rx Albuterol Sulfate [Albuterol Neb] 2.5 mg RESP TX TID 04/11/17 05/03/17 History Ascorbic Acid Tab [Vitamin C Tab] 500 mg PO DAILY 04/11/17 05/03/17 History Bisacodyl Tab [Dulcolax Tab] 5 mg PO DAILY PRN 04/11/17 05/03/17 History Lactulose Liquid [Chronulac] 30 ml PO BID 04/11/17 05/03/17 History Clorazepate [Tranxene] 3.75 mg PO BID #60 tablet 04/19/17 05/03/17 Rx HYDROcodone/ACETAMIN 5-325 [[place] 1 tablet PO Q8H PRN #90 tablet 04/19/17 Rx 5-325] Skin Healing Oint (Aquaphor) 1 applic TOP PRN PRN applic 04/19/17 05/03/17 Rx [Aquaphor] fentaNYL 25 MCG/HR PATCH 1 patch TRANSDERM Q3DAY #10 patch 04/19/17 05/03/17 Rx [Duragesic 25 Patch] Review of System - Review of System 12 point system: reviewed and no additional remarkable complaints except as stated - Review of System Constitutional: Absent: fever Respiratory: Present: respiratory distress (SOB and decreased O2 sat) Cardiovascular: Absent: chest pain Gastrointestinal: Absent: abdominal pain, nausea, vomiting Musculoskeletal: Present: lower back pain. Absent: arm pain Skin: Absent: rash Neurological: Present: confusion (now resolved), other (mild slurred speech, tremors - now resolved). Absent: headache, numbness Medical,Surgical,& Family Hx - Medical History Cardio: History of: CAD, Hypertension, Pacemaker No history of: VT, PVD Psychological: History of: Anxiety Disorders, Depression Neurology: History of: Vertigo HEENT: History of: Eye Problem (WEARS GLASSES, NEAR SIGHTED, CATARACT LEFT EYE) Endocrine: History of: Thyroid Disorder No history of: Diabetes Mellitus (IDDM), Diabetes Mellitus (NIDDM), Dyslipidemia Respiratory: History of: Bronchitis, COPD, Intubation, Pulmonary Hypertension, Pneumonia Renal: No history of: Renal Problems Genitourinary: History of: Prostate Problems (PROSTATE CA) Gastrointestinal: History of: Gastrointestinal Bleed, Hemorrhoids Musculoskeletal: History of: Back/Neck Problems, Degenerative Disk Disease, Herniated Disk, Musculoskeletal Problems (suspected MS, fx T-) Other: History of: Cancer, Miscellaneous Medical Problems (ankylosing spondylitis) - Surgical History Cardiac Surgeries: Patient Denies: Femoral-Popliteal Bypass Graft, Cardiac Catheterization, Cardiac Surgery, Carotid Endarterectomy, Internal Defibrillator, Vascular Access Devices Thoracic Surgeries: Patient denies;: Organ Transplant Neurologic Surgeries: Patient denies: Neurologic Surgery HEENT Surgeries: Surgical HX of: Tonsilectomy & Adenoidectomy Patient denies: Carotid Endarterectomy Abdominal Surgeries: Patient denies: Abdominal Surgery, Splenectomy Reproductive Surgeries: Surgical HX of;: Genitourinary Surgery, Prostate Surgery (PROSTATECTOMY) Orthopedic Surgeries: Surgical HX of;: Orthopedic Surgery (RIGHT ANKLE FRACTURE) - Family History Family History: Reports;: Family Cancer (FATHER (TESTICULAR CA)), Family Diabetes (FATHER), Family Heart Disease (MOTHER), Family Hypertension - Social History Smoking Status: Former smoker Frequency of Alcohol Use: None Type of Drug Use: None Marital Status: Lives With:: [employer] Functional capacity: wheelchair bound Exam Vital Signs: Vital Signs Temperature 97.6 F 05/03/17 20:35 Pulse Rate 116 H 05/03/17 20:35 Respiratory Rate 22 05/03/17 20:35 Blood Pressure 113/70 05/03/17 20:35 O2 Sat by Pulse Oximetry 98 05/03/17 20:35 - General General appearance: alert, in no apparent distress - Head Head exam: Present: atraumatic, normocephalic - Eye Eye exam: Present: PERRL, EOMI - ENT ENT exam: Present: mucous membranes moist. Absent: mucous membranes dry - Neck Neck exam: Present: full ROM. Absent: tenderness - Chest Chest inspection: Present: symmetric chest wall rise, other (concave chest). Absent: tenderness - Respiratory Respiratory exam: Present: normal lung sounds bilaterally. Absent: respiratory distress - Cardiovascular Cardiovascular exam: Present: tachycardia, normal heart sounds - Abdominal Exam Abdominal exam: Present: soft, tenderness (diffusely). Absent: distention, guarding, rebound - Neurological Exam Neurological exam: Present: alert, oriented X3, CN II-XII intact. Absent: motor sensory deficit - Psychiatric Psychiatric exam: Present: normal affect, normal mood - Skin Skin exam: Present: warm, dry Results - Labs CBC & BMP: 05/03/17 21:17 05/03/17 21:17 Lab Results: I have reviewed the patients labs Labs: Laboratory Tests 05/03/17 21:17 WBC 8.6 RBC 3.61 L Hgb 12.0 L Hct 36.7 L Plt Count 206 Lymph % (Auto) 11.9 L Baso % (Auto) 0.9 H Lymph # (Auto) 1.0 L Pratt # (Auto) 1.0 H Laboratory Tests 05/03/17 05/03/17 21:17 21:17 Platelet Estimate Adequate Sodium 139 Potassium 4.5 Chloride 101 Carbon Dioxide 33 H BUN 9 Creatinine 0.40 L GFR Calculation 166 BUN/Creatinine Ratio 22.00 H Glucose 110 H Magnesium 2.5 H AST 28 Alkaline Phosphatase 152 H Troponin I < 0.015 Total Protein 6.3 L Albumin 2.6 L Globulin 3.7 H Albumin/Globulin Ratio 0.7 L Laboratory Tests 05/03/17 22:39 Urine Color Yellow Urine Appearance Cloudy Urine pH 6.0 Ur Specific Dawson 1.023 Urine Protein 100 Urine Ketones 5 Urine Blood Moderate Urine Nitrate Positive H Urine Bilirubin Negative Urine Urobilinogen < 2.0 H Urine Leukocytes Large H Urine RBC 75 Urine WBC 1460 Urine WBC Clumps Many Ur Squamous Epith Cells Occasional Urine Bacteria Many Urine Mucus Many - Diagnostic Findings Procedure: CT - chest: image reviewed by me (pleural effusion), CT: report reviewed by me (Head wo con: No acute intracranial abnormality.) Disposition Clinical Impression: Dyspnea, Hypoxia, Pleural effusion, UTI (urinary tract infection) Case discussed with: patient, patient's family Disposition: Still a Patient
--- NOTE | 2017-05-04 02:01 | Hospitalist History & Physical ---
Assessment and Plan (1) Pneumonia Status: Acute Current Visit: Yes (2) Debility Status: Chronic Current Visit: No (3) Decubitus ulcer Status: Acute Current Visit: No Qualifiers: Pressure ulcer location: contiguous region involving back and buttock Pressure ulcer stage: stage 2 (4) Dyspnea Status: Acute Current Visit: Yes (5) Hypoxia Status: Acute Current Visit: Yes (6) Pleural effusion Status: Acute Current Visit: Yes (7) UTI (urinary tract infection) Status: Acute Assessment and plan: Patient presents with multiple problems. He admitting him to our service putting him on antibiotics will consult Dr. Bragg's assistance with his wraps of his lower extremities and patient does have a decubitus ulcer that needs to be evaluated. Also he normally sees Dr. Romero or Dr. Romero's input on this large pleural effusion. Will continue other home meds as appropriate. Keep his pain medicines at their current levels. Patient may or may not need to be evaluated by Dr. Mikey Diego during this hospitalization would base that on how patient does during the hospitalization. Currently patient seems fine and answers questions appropriately Current Visit: Yes History of Present Illness Chief complaint: Low O2 sats and shortness of breath and altered mental status History of present illness: Mr. Fischer is a 66 year old male with past medical history significant for hypertension pacemaker anxiety, depression, thyroid disorder, diabetes, ankylosing spondylitis presents to our ER elder. [facility] is a resident at [facility]. Apparently he was having some kind of "spell". During this time he has difficult breathing cannot speak. These spells have been going on for a while. He has about 8-10 a month. According to the is been evaluated by Dr. Thacker. He felt that this is medication induced. He follows with Dr. Patel who is trying to wean him down from his pain medicines. During the spells he has tremors slurred speech jumbling words together. The issue resolves. [facility] was found to have urinary tract infection. Also on CT scan of his chest secondary to his low O2 sats it was found that he has a large right pleural effusion. I was consulted to admit this patient to the emergency room Home Medications Medication Instructions Recorded Confirmed Type Imipramine HCl 25 mg PO DAILY 02/20/17 05/03/17 History Levothyroxine Tab [Synthroid Tab] 100 mcg PO DAILY 02/20/17 05/03/17 History Theophylline ER Tab 300 mg PO Q12H 02/20/17 05/03/17 History Bisoprolol [Zebeta] 5 mg PO DAILY tablet 03/02/17 05/03/17 Rx Folic Acid Tab 1 mg PO DAILY tablet 03/02/17 05/03/17 Rx Lidocaine 5% Patch [Lidoderm 5% 1 patch TRANSDERM DAILY patch 03/02/17 Rx Patch] Multivitamin (Centrum) [Centrum 1 tablet PO DAILY tablet 03/02/17 05/03/17 Rx Tab] Thiamine Tab [Vitamin B1 Tab] 100 mg PO DAILY tablet 03/02/17 05/03/17 Rx miSOPROStol [Cytotec] 200 mcg PO DAILY tablet 03/02/17 05/03/17 Rx Albuterol Sulfate [Albuterol Neb] 2.5 mg RESP TX TID 04/11/17 05/03/17 History Ascorbic Acid Tab [Vitamin C Tab] 500 mg PO DAILY 04/11/17 05/03/17 History Bisacodyl Tab [Dulcolax Tab] 5 mg PO DAILY PRN 04/11/17 05/03/17 History Lactulose Liquid [Chronulac] 30 ml PO BID 04/11/17 05/03/17 History Clorazepate [Tranxene] 3.75 mg PO BID #60 tablet 04/19/17 05/03/17 Rx HYDROcodone/ACETAMIN 5-325 [Bartley 1 tablet PO Q8H PRN #90 tablet 04/19/17 Rx 5-325] Skin Healing Oint (Aquaphor) 1 applic TOP PRN PRN applic 04/19/17 05/03/17 Rx [Aquaphor] fentaNYL 25 MCG/HR PATCH 1 patch TRANSDERM Q3DAY #10 patch 04/19/17 05/03/17 Rx [Duragesic 25 Patch] Allergies Allergy/AdvReac Type Severity Reaction Status Date / Time codeine Allergy Unknown UNRESPONSIV Verified 04/12/17 00:48 E acetaminophen [From Percocet] Allergy Verified 04/12/17 00:48 escitalopram [From Lexapro] Allergy Verified 04/12/17 00:48 gabapentin [From Neurontin] Allergy Verified 04/12/17 00:48 Hydromorphone [From Dilaudid] Allergy Verified 04/12/17 00:48 Oxycodone [From Percocet] Allergy Verified 04/12/17 00:48 Medical,Surgical,& Family Hx - Medical History Cardio: History of: CAD, Hypertension, Pacemaker No history of: PR, PVD Psychological: History of: Anxiety Disorders, Depression Neurology: History of: Vertigo HEENT: History of: Eye Problem (WEARS GLASSES, NEAR SIGHTED, CATARACT LEFT EYE) Endocrine: History of: Thyroid Disorder No history of: Diabetes Mellitus (IDDM), Diabetes Mellitus (NIDDM), Dyslipidemia Respiratory: History of: Bronchitis, COPD, Intubation, Pulmonary Hypertension, Pneumonia Renal: No history of: Renal Problems Genitourinary: History of: Prostate Problems (PROSTATE CA) Gastrointestinal: History of: Gastrointestinal Bleed, Hemorrhoids Musculoskeletal: History of: Back/Neck Problems, Degenerative Disk Disease, Herniated Disk, Musculoskeletal Problems (suspected MS, fx T-) Other: History of: Cancer, Miscellaneous Medical Problems (ankylosing spondylitis) - Surgical History Cardiac Surgeries: Patient Denies: Femoral-Popliteal Bypass Graft, Cardiac Catheterization, Cardiac Surgery, Carotid Endarterectomy, Internal Defibrillator, Vascular Access Devices Thoracic Surgeries: Patient denies;: Organ Transplant Neurologic Surgeries: Patient denies: Neurologic Surgery HEENT Surgeries: Surgical HX of: Tonsilectomy & Adenoidectomy Patient denies: Carotid Endarterectomy Abdominal Surgeries: Patient denies: Abdominal Surgery, Splenectomy Reproductive Surgeries: Surgical HX of;: Genitourinary Surgery, Prostate Surgery (PROSTATECTOMY) Orthopedic Surgeries: Surgical HX of;: Orthopedic Surgery (RIGHT ANKLE FRACTURE) - Family History Family History: Reports;: Family Cancer (FATHER (TESTICULAR CA)), Family Diabetes (FATHER), Family Heart Disease (MOTHER), Family Hypertension - Social History Smoking Status: Former smoker Frequency of Alcohol Use: None Type of Drug Use: None 12 point system: reviewed and no additional remarkable complaints except as stated Exam - Constitutional Vitals: Period Temp Pulse Resp BP Sys/Ivey Pulse Ox Last 24 Hr 97.6 F-97.6 F 116-116 22-22 113-113/70-70 98 General appearance: no acute distress - Head Head exam: Present: normal inspection, normocephalic - Eye Eye exam: Present: EOMI Pupils: Present: SAMSON - ENT ENT exam: Present: normal exam - Neck Neck exam: Present: normal inspection - Respiratory Respiratory exam: Present: clear to auscultation bilaterally - Cardiovascular Cardiovascular exam: Present: tachycardia - GI/Abdominal GI/Abdominal exam: Present: normal bowel sounds, distended - Extremities Exam Extremities exam: Present: other (Patient has chronic lower extremity swelling. He usually wears [place] wraps) Results - Labs CBC & BMP: 05/03/17 21:17 05/03/17 21:17
[2017-05-04] MEDS ORDERED: ONDANSETRON 4 MG/2 ML VIAL IV PRN (02:08)
[2017-05-04] MEDS ORDERED: BISACODYL 5 MG TABLET PO PRN (02:14)
[2017-05-04] MEDS ORDERED: SKIN HEALING OINT (AQUAPHOR) 50 GM TUBE TOP PRN (02:14)
[2017-05-04] MEDS: ENOXAPARIN 40 MG/0.4 ML SYRINGE SUBCUT SCH (04:11)
[2017-05-04] MEDS: AZITHROMYCIN INJ 500 MG in SODIUM CHLORIDE 0.9% 250 ML IV SCH (05:59)
--- NOTE | 2017-05-04 06:29 | CT Report ---
CT head/brain wo con Indication: Mental status changes. CT BRAIN WITHOUT CONTRAST DLP: 3142 mGy*cm. One or more of the following dose reduction techniques was used: Automated exposure control, adjustment of the mA and/or kV according the patient size, or use of iterative reconstruction techniques. Comparison: 04/19/2017. Date of admission: 05/03/2017. Technique: Axial noncontrast CT images of the brain were obtained. Findings: No acute hemorrhage, mass or mass effect. Generalized atrophy and patchy periventricular white matter hypodensity is present throughout both convexities. Cortical reeder-white junction and structures of the basal ganglia are well-defined. No bone lesions are shown. Internal auditory canals are symmetric. Visualized sinuses and mastoid air cells are clear. Impression: No acute intracranial pathology. Generalized atrophy and changes consistent with microvascular disease. PROCEDURE INTERPRETED AT [facility] DEPARTMENT OF RADIOLOGY Final Report Signed by: Brennan Quiles M.D.
--- NOTE | 2017-05-04 06:45 | CT Report ---
CT chest PE study Indication: Shortness of breath. CT CHEST WITH CONTRAST, PE PROTOCOL DLP: 1183 mGy*cm. One or more of the following dose reduction techniques was used: Automated exposure control, adjustment of the mA and/or kV according the patient size, or use of iterative reconstruction techniques. Comparison: None Technique: Axial CT images of the chest were obtained during the pulmonary arterial phase of contrast injection. Coronal reconstructions were provided. Omnipaque 350, 100 cc. Findings: No central, lobar or segmental pulmonary artery filling defects identified. Main pulmonary artery is normal in size. Heart size is normal. Mediastinal contents distorted by severe ankylosis and exaggerated kyphosis of the thoracic spine. Moderate right pleural effusion with complete collapse the right lower lobe. Small left pleural effusion is present as well with some peripheral calcifications and a soft tissue rind. Additional atelectasis of the left lower lobe noted. In general, lungs show diffuse groundglass opacity with multiple cystic changes bilaterally. There is broad parenchymal bands throughout the left lung consistent with scarring. Rounded atelectasis lateral lingula noted. I see no evidence of lymphadenopathy. Limited views of the upper abdomen appear unremarkable. Patient is severely osteoporotic with ankylosis of the visualized cervical, thoracic and lumbar spine. There is a retrolisthesis at approximately T11-12 with hypertrophic changes around the disc level, indicating probable chronic injury. Prior T9 vertebroplasty noted. T7 and T8 compression fractures noted, unknown acuity. Impression: 1. No PE identified. 2. Relatively simple appearing moderate right pleural effusion with complete collapse the right lower lobe. Left pleural effusion is more chronic appearing with a soft tissue rind around its periphery with some scattered calcifications. Left lower lobe atelectasis. 3. Diffuse interstitial lung disease with generalized groundglass opacity and multiple cystic changes noted. Significant parenchymal scarring of the left lung. Peripheral rounded atelectasis lingula. 4. Ankylosis of the spine as described with markedly exaggerated thoracic kyphosis. Compression fractures of T7 and T8, unknown acuity. Vertebroplasty at T9. Chronic appearing retrolisthesis of approximately T11-12. Osteoporosis. PROCEDURE INTERPRETED AT [facility] DEPARTMENT OF RADIOLOGY Final Report Signed by: Brennan Quiles M.D.
--- NOTE | 2017-05-04 07:01 | XRay Report ---
XR chest 1V portable Indication: Altered mental status. Chest one view: Comparison 04/11/2017. Pacemaker, mid thoracic vertebroplasty, and cardiomegaly are unchanged from earlier study. Bilateral pleural effusions have developed with atelectasis. Lung volumes are low. Patient has severely exaggerated kyphosis on CT and is chin overlies the upper chest. Impression: Since last month, pleural effusions have developed with progressive atelectasis of the lung bases. Otherwise no change. PROCEDURE INTERPRETED AT [facility] DEPARTMENT OF RADIOLOGY Final Report Signed by: Brennan Quiles M.D.
[2017-05-04] MEDS: ALBUTEROL/IPRATROPIUM 3 ML NEB RESP TX SCH ×3 (07:15→20:13)
[2017-05-04 07:26] LABS: Basophils # 0.1 10*3/uL (0.0-0.2); Basophils % 0.7 % (0.0-0.8); Eosinophils # 0.1 10*3/uL (0.0-0.87); Eosinophils % 1.7 % (0.00-10.9); Hematocrit 34.3 VOL% (42.0-52.0); Hemoglobin 11.1 GM/DL (14.0-18.0); Immature Granulocytes % 0.5 %; Immature Granulocytes Absolute 0.04 #; Lymphocytes # 0.8 10*3/uL (1.4-4.0); Lymphocytes % 9.8 % (21.2-54.2); Mean Corpuscular HGB Conc 32.4 GM/DL (32-36); Mean Corpuscular Hemoglobin 33 PG (27-34); Mean Corpuscular Volume 101.5 FL (87-102); Mean Platelet Volume 11.2 FL (9.6-12.0); Monocytes % 11.5 % (1.7-12.7); Neutrophils # 6.3 10*3/uL (1.4-7.4); Neutrophils % 75.8 % (38.7-73.9); Platelet Count 214 T/CUMM (130-400); Red Blood Count 3.38 MC/CUMM (3.8-5.5); Red Cell Distribution Width 13.8 % (9.3-17.3); White Blood Count 8.4 T/CUMM (4-12)
--- NOTE | 2017-05-04 07:55 | EKG Report ---
Stationary ECG Study [facility] ER Test Date: 05/03/2017 8:49:42 PM Pat Name: BREANN KELLEY Department: Room: 237 Gender: M [employer]: : 1950 Requested by: Dat Centeno Order Number: [id number] Reading MD: GRACIELA MCDONALD Intervals [place] Rate: 118 P: 5 TN: 199 QRS: 89 QRSD: 81 T: 54 QT: 316 QTc: 386 Interpretive Statements SINUS TACHYCARDIA WITH OCCASIONAL SUPRAVENTRICULAR PREMATURE COMPLEXES POSSIBLE LEFT ATRIAL ENLARGEMENT LOW QRS VOLTAGE IN PRECORDIAL LEADS ABNORMAL RHYTHM ECG Electronically Signed On 05-04-17 09:48:14 CDT by GRACIELA MCDONALD [email or web address]
[2017-05-04 07:58] LABS: Albumin 2.5 G/DL (3.4-5.0); Bilirubin,Total 0.6 MG/DL (0.2-1.0); Calcium 8.8 MG/DL (8.5-10.1); Osmolality,Calculated 279.3 MOS/KG (273-304); Total Protein 5.8 G/DL (6.4-8.3)
[2017-05-04] MEDS ORDERED: CLORAZEPATE 3.75 MG TABLET PO SCH (09:00)
[2017-05-04] MEDS ORDERED: THEOPHYLLINE ER 300 MG TABLET PO SCH (09:00)
[2017-05-04] MEDS ORDERED: fentaNYL 25 MCG/HR PATCH TRANSDERM SCH (09:00)
[2017-05-04] MEDS: LIDOCAINE 5% PATCH TRANSDERM SCH (09:15)
[2017-05-04] MEDS: LACTULOSE 20 GM/30 ML UDCUP PO SCH ×2 (09:17→21:16)
[2017-05-04] MEDS: miSOPROStol 200 MCG TABLET PO SCH (09:17)
[2017-05-04] MEDS: IMIPRAMINE 25 MG TABLET PO SCH (09:19)
[2017-05-04] MEDS: LEVOTHYROXINE 100 MCG TABLET PO SCH (09:19)
[2017-05-04] MEDS: PANTOPRAZOLE 40 MG TABLET PO SCH (09:19)
[2017-05-04] MEDS: FOLIC ACID 1 MG TABLET PO SCH (09:19)
[2017-05-04] MEDS: THIAMINE 100 MG TABLET PO SCH (09:19)
[2017-05-04] MEDS: ASCORBIC ACID 500 MG TABLET PO SCH (09:20)
[2017-05-04] MEDS: MULTIVITAMIN (CENTRUM) TABLET PO SCH (09:20)
[2017-05-04] MEDS: BISOPROLOL 5 MG TABLET PO SCH (09:20)
[2017-05-04 09:30] LABS: Ammonia < 10 UMOL/L (11-32)
[2017-05-04 09:51] LABS: Free T4 (Free Thyroxine) 1.61 NG/DL (0.76-1.46)
--- NOTE | 2017-05-04 10:13 | Pulmonology Consult Note ---
History of Present Illness Chief complaint: Patient known to you. Pleural effusion. History of present illness: Tuan Tamera, [facility], acting as scribe for Dr. Bala Ramírez Mr. 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 He was inpatient at [facility] 04/11/2017 through 04/19/2017 under the care of the hospitalists. During that admission, at presentation it was felt he had an acute CVA with altered speech and right body weakness. However, over time this did not appear to be the case. He was found to have an acute UTI secondary to Enterococcus faecalis. He was also felt that he was overmedicated with many of his pain medications. He was seen in pain management consultation by Dr. Patel. Many of his medications were titrated back. He was seen in neurology consultation by Dr. Thacker as well. By the time of discharge he was back to his baseline was discharged to the detention in markedly improved condition. On 04/19/2017 (the day of discharge) the patient was brought back to the emergency room for complaints of shortness of breath, chest pain, and dizziness. The patient's reported that he grabbed his head and started shaking and could not speak for a couple of minutes. At the time of triage the patient was awake and alert and only complained of back pain. The patient was assessed by the ER physician as well as Dr. Sherman who was the discharging physician that day as well as the admitting physician on 04/11/2017. She noted that the patient was no different than he was at the time of discharge and scheduled for him to have a follow-up outpatient appointment with Dr. Thacker. This was done and apparently the patient was told at that clinic appointment at the patient was still on too many medications. Yesterday the patient was brought back to the emergency room by EMS with complaints of altered mental status, low oxygen saturation and increased shortness of breath. Upon arrival to the [facility] by EMS the patient's oxygen saturation was 77% increased to 100% once oxygen was applied. The patient's reports that since discharge the patient has had increasing episodes of "shaking of the upper extremities, confusion, pinpoint pupils during these episodes, and decreased oxygenation during these episodes as well" . She does note that the shaking starts first and then his oxygenation decreases. Of note, his fentanyl and Tranxene are being tapered. She would like these completely discontinued. She also would like his theophylline was discontinued. She reports that he has food aversion. She thinks these medications are "building up in his system". On chest x-ray and CT done in the emergency room yesterday, the patient was noted to have bilateral pleural effusions. These are new since last month. For all these reasons the patient was admitted to the hospitalists for further evaluation and care. We have been asked to see the patient in pulmonary consultation for evaluation and treatment. The request for consultation was made by Dr. Donald. The patient has had increasing shortness of breath as noted above. There has been no cardiac angina or palpitations. No bleeding from any site. No dysphasia or reflux.: Other systems were reviewed and were negative except as noted above. Allergies: Codeine Home medications: See list Hospital medications: See list Immunizations: Pneumovax was given 07/17/2014 Past history: Prostate cancer diagnosed in 2006. The patient had a robotic assisted radical laparoscopic prostatectomy by Dr. Gino Hunter at [facility]. He had a Forman grade 4+3 with a score of 7 with multiple foci of parenchymal invasion identified involving both lobes and approximately 40-45% of the prostate tissue. Urethral bladder neck and peripheral soft tissue margins were free of tumor. Patient had a right and left seminal vessels biopsies were negative. This was a pathologic stage pT2c, NX MX. Patient has ankylosing spondylitis with a past history of underlying spinal cord disease. He has had symptoms of spinal stenosis. He has high blood pressure. August 2006 he had decortication of the left lung for benign pleural lesions which are related to an empyema. This left him with residual pleural scarring which is gradually improved but is never quite resolved. Patient was in [facility] November 2006 with transient loss of feeling and a muscle activity in both lower extremities which occurred while sitting. At that time he had left upper extremity symptoms that the neurologist and initially thought might be multiple sclerosis. This did not bowl turner to be the case. These symptoms appear to be related to spinal stenosis. Patient has COPD with asthma. In the past he had situational depression which resolved. He has hyperlipidemia and pernicious anemia secondary to B12 deficiency. History of high blood pressure. Hypothyroidism. Hyperlipidemia. Chronic venous stasis of the lower extremities. Peripheral sensory neuropathy of the lower extremities. In October 2013 he had a T9 compression fracture which required kyphoplasty. Patient was in [facility] in November and December 2015 secondary to hyponatremia. 2016 the patient had placement of a dual-chamber cardiac pacer. He was hospitalized in [facility] in February 2017 with severe back pain. [facility] 04/11/2017 through 04/19/2017 as above. Family history: The patient's mother's twin sister had thyroid cancer at age 70- 75. His father was a World War II and a of the [place] War and he had 3 tours in [place]. Patient's father was diagnosed with schizophrenia. Patient has [place] ancestry. He is pointed out to me in the past has increased incidence of ankylosing spondylitis in the [place]. Social history: Patient is . 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 The patient's been a cigarette smoker in the past and stopped smoking in July 2016. 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 Past procedures: Chest CT done 05/03/2017 showed no PE. There is relatively simple appearing moderate right pleural effusion with complete collapse of the right lower lobe. Left pleural effusion was more chronic appearing with soft tissue rind around its periphery with some scattered calcification. Left lower lobe atelectasis. Diffuse interstitial lung disease with generalized groundglass opacity and multiple cystic changes noted. Significant parenchymal scarring of the left lung. Peripheral rounded atelectasis of the lingula. Ankylosing of the spine as described with markedly exaggerated thoracic kyphosis. Compression fractures of T7 and T8, unknown acuity. Vertebroplasty at T9. Chronic appearing retro-listhesis of approximately T11-12. Osteoporosis. Head CT done 05/03/2017 no acute intracranial pathology. Generalized atrophy and changes consistent with microvascular disease. Head CT done 04/19/2017 no acute intracranial pathology. Generalized atrophy and changes consistent with microvascular disease. No change from the prior exam done 2016. Echocardiogram done 04/12/[address] Blake showed an ejection fraction estimated at 60%, grade 1 diastolic dysfunction (abnormal relaxation filling pattern), normal to mildly elevated filling pressures, mild aortic valve regurgitation, tricuspid regurgitation velocity suggested a right ventricular systolic pressure 23 mmHg plus the right atrial pressure, moderate ventricular hypertrophy with no demonstrable increase in right-sided pressure. Carotid Dopplers done 04/12/2017 showed 50-79% diameter reduction narrowing of the left internal carotid artery and 16-49% diameter reduction narrowing of the right internal carotid artery. The radiologist, Dr. Sawant, suggested evaluation with CTA to better quantitate the degree of left internal carotid artery stenosis. Dual-chamber pacemaker placed 02/28/[address] Clemens. Laboratory: White count is 8400 with 75.8% segs, 9.8% lymphs, 11.5% monos; H&H 11.1/34.5 with top normal indices and normal red blood cell distribution with; platelet count 214,000; creatinine 0.40, BUN 8, sodium 141, potassium 4.0, magnesium 2.5 (hypermagnesemia), calcium 8.8, albumin 2.5, total protein 5.8; liver function tests within normal limits with the exception of a minimally elevated alkaline phosphatase; troponin less than 0.015; urinalysis is nitrate positive with large leukocytes and 1460 WBCs; urine cultures pending Home Medications Medication Instructions Recorded Confirmed Type Imipramine HCl 25 mg PO DAILY 02/20/17 05/03/17 History Levothyroxine Tab [Synthroid Tab] 100 mcg PO DAILY 02/20/17 05/03/17 History Theophylline ER Tab 300 mg PO Q12H 02/20/17 05/03/17 History Bisoprolol [Zebeta] 5 mg PO DAILY tablet 03/02/17 05/03/17 Rx Folic Acid Tab 1 mg PO DAILY tablet 03/02/17 05/03/17 Rx Lidocaine 5% Patch [Lidoderm 5% 1 patch TRANSDERM DAILY patch 03/02/17 Rx Patch] Multivitamin (Centrum) [Centrum 1 tablet PO DAILY tablet 03/02/17 05/03/17 Rx Tab] Thiamine Tab [Vitamin B1 Tab] 100 mg PO DAILY tablet 03/02/17 05/03/17 Rx miSOPROStol [Cytotec] 200 mcg PO DAILY tablet 03/02/17 05/03/17 Rx Albuterol Sulfate [Albuterol Neb] 2.5 mg RESP TX TID 04/11/17 05/03/17 History Ascorbic Acid Tab [Vitamin C Tab] 500 mg PO DAILY 04/11/17 05/03/17 History Bisacodyl Tab [Dulcolax Tab] 5 mg PO DAILY PRN 04/11/17 05/03/17 History Lactulose Liquid [Chronulac] 30 ml PO BID 04/11/17 05/03/17 History Clorazepate [Tranxene] 3.75 mg PO BID #60 tablet 04/19/17 05/03/17 Rx HYDROcodone/ACETAMIN 5-325 [[place] 1 tablet PO Q8H PRN #90 tablet 04/19/17 Rx 5-325] Skin Healing Oint (Aquaphor) 1 applic TOP PRN PRN applic 04/19/17 05/03/17 Rx [Aquaphor] fentaNYL 25 MCG/HR PATCH 1 patch TRANSDERM Q3DAY #10 patch 04/19/17 05/03/17 Rx [Duragesic 25 Patch] Allergies Allergy/AdvReac Type Severity Reaction Status Date / Time codeine Allergy Unknown UNRESPONSIV Verified 04/12/17 00:48 E acetaminophen [From Percocet] Allergy Verified 04/12/17 00:48 escitalopram [From Lexapro] Allergy Verified 04/12/17 00:48 gabapentin [From Neurontin] Allergy Verified 04/12/17 00:48 Hydromorphone [From Dilaudid] Allergy Verified 04/12/17 00:48 Oxycodone [From Percocet] Allergy Verified 04/12/17 00:48 Exam (Pulmonay) H&P - Constitutional Vitals: Period Temp Pulse Resp BP Sys/Ivey Pulse Ox Last 24 Hr 97.3 F-97.8 F 102-120 17-26 113-142/67-91 88-100 Exam: Psych: Oriented at least to person; a pleasant and cooperative patient who is acutely ill appearing HEENT: Pupils, irises, sclera, conjunctiva, and eyelids appear normal. The face is symmetrical without rash or masses. Lips, tongue, buccal mucosa, soft and hard palates, and pharynx are WNL Neck: Symmetrical with decreased range of motion. No masses. Thyroid was not palpated. Lymphatics: No submandibular, cervical, or supraclavicular adenopathy Chest: Hyperinflated with mild prolongation of expiration. No wheezes, no stridor, no rales CV: Regular with a short grade 1/6 systolic ejection murmur at the left sternal border that does not radiate Arterial: Carotids with a fair upstroke. There is no bruit. Upper extremity pulses are palpable. Lower extremity pulses are non-palpable, but I see no evidence of ischemia. Venous: Exam of the neck, upper, and lower extremities is normal; chronic venous stasis of the lower extremities Abd: No appreciable organomegaly, masses, tenderness, or bruit; Bowel sounds are positive 4; The aorta was not palpated /Rectal: Deferred Extremities: No clubbing, cyanosis, or obvious DVT; edema of the bilateral lower extremities Skin: No cancerous or infectious lesions of the exposed, examined skin; the perineal area was not examined M/S: Age appropriate loss of the normal curvature of the cervical, thoracic, and lumbar spine The remainder of the exam was noncontributory. Impression: #1: Acute altered mental status most likely secondary to #2 but consider other causes #2: Acute urinary tract infection #3: Ankylosing spondylitis with probable spinal stenosis. Anatomy and pain limited mobility. #4: Peripheral sensory neuropathy. His symptoms have gradually worsened over time. #5: Chronic venous stasis of the lower extremities. #6: Vitamin B deficiency. #7: Past history of tobacco abuse #8: COPD/asthma #9: Past history of high blood pressure #10: Hypothyroidism #11: Bilateral pleural effusions of unknown etiology #12: Dual-chamber cardiac pacemaker #13: History of marijuana use #14: History of compression fractures with chronic pain. Now under the care of Dr. Patel. #15: See past history Plan: #1: Check BMP, TSH, free T4, theophylline level #2: In light of his acute UTI, we will stop Rocephin and Zithromax. Start Levaquin and Fortaz. #3: Follow-up urine culture when available #4: Consult Dr. Patel. Note, the patient's would like to completely taper off Tranxene and fentanyl. #5: Stop theophylline per the patient's 's wishes. #6: Urine drug screen. #7: Repeat chest x-ray in the morning #8: See orders We appreciate this consult and will follow along with you. Medical,Surgical,& Family Hx - Medical History Cardio: History of: CAD, Hypertension, Pacemaker No history of: MO, PVD Psychological: History of: Anxiety Disorders, Depression Neurology: History of: Vertigo HEENT: History of: Eye Problem (WEARS GLASSES, NEAR SIGHTED, CATARACT LEFT EYE) Endocrine: History of: Thyroid Disorder No history of: Diabetes Mellitus (IDDM), Diabetes Mellitus (NIDDM), Dyslipidemia Respiratory: History of: Bronchitis, COPD, Intubation, Pulmonary Hypertension, Pneumonia Renal: No history of: Renal Problems Genitourinary: History of: Prostate Problems (PROSTATE CA) Gastrointestinal: History of: Gastrointestinal Bleed, Hemorrhoids Musculoskeletal: History of: Back/Neck Problems, Degenerative Disk Disease, Herniated Disk, Musculoskeletal Problems (suspected MS, fx T-) Hematology: No history of: Anemia Other: History of: Cancer (prostate ca), Miscellaneous Medical Problems ( ankylosing spondylitis) - Surgical History Cardiac Surgeries: Patient Denies: Femoral-Popliteal Bypass Graft, Cardiac Catheterization, Cardiac Surgery, Carotid Endarterectomy, Internal Defibrillator, Vascular Access Devices Thoracic Surgeries: Patient denies;: Organ Transplant Neurologic Surgeries: Patient denies: Neurologic Surgery HEENT Surgeries: Surgical HX of: Tonsilectomy & Adenoidectomy Patient denies: Carotid Endarterectomy Abdominal Surgeries: Patient denies: Abdominal Surgery, Splenectomy Reproductive Surgeries: Surgical HX of;: Genitourinary Surgery, Prostate Surgery (PROSTATECTOMY) Orthopedic Surgeries: Surgical HX of;: Orthopedic Surgery (RIGHT ANKLE FRACTURE) - Family History Family History: Reports;: Family Cancer (FATHER (TESTICULAR CA)), Family Diabetes (FATHER), Family Heart Disease (MOTHER), Family Hypertension - Social History Smoking Status: Former smoker Frequency of Alcohol Use: None Type of Drug Use: None Results - Labs CBC & BMP: 05/04/17 07:12 05/04/17 07:12 Quality Measures - Stroke Symptom Onset Unknown: No
[2017-05-04] MEDS: LEVOFLOXACIN INJ 500 MG in PREMIX 1 EACH IV SCH (11:29)
[2017-05-04] MEDS: fentaNYL 12 MCG/HR PATCH TRANSDERM SCH (11:29)
[2017-05-04 12:02] LABS: Barbiturates Screen,Urine Negative (Negative); Benzodiazepines Screen,Urine Positive (Negative); Cannabinoid Screen,Urine Positive (Negative); Opiate Screen,Urine Negative (Negative); Phencyclidine Screen,Urine Negative (Negative)
--- NOTE | 2017-05-04 12:33 | Pain Management Consult Note ---
Assessment and Plan (1) Ankylosing spondylitis Problem details: Spinal pain secondary to ankylosing spondylitis Status: Chronic Assessment and plan: 05/04/2017. The patient complains of pain in the back from his neck to low back. Also complains of generalized arthralgias and myalgias. Continues to have abnormal sensation both lower extremities with little movement of his feet. Admitted with a "episode" and altered mental status. I had a very long discussion with the patient's regarding ongoing treatment of this patient and his pain. 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 Including his confusion. When I first saw the patient during his most recent admission he had been under another doctor's care for his pain. He had also been in the rehab hospital and had been on multiple different medicines including opioids muscle relaxers etc. At the last admission many of these medicines were weaned down or off. Today we discussed the ongoing treatment plan including the goal of continue to wean off various medicines. At this admission the Duragesic has been decreased to 12 mcg /h and the Tranxene decreased to 3.751 per day. I agree with these changes. Over the next week we will plan to discontinue these medicines. He will need some ongoing analgesic therapy including low-dose instant release opioids in the form of Pledger. Nonsteroidal anti-inflammatory drugs work well for the type of pain he has however these may need to be limited considerably due to his poor generalized health and potential for endorgan side effects. I will be out for the next 3 days but will see him upon my return and at that time I will wean off off the Duragesic and Tranxene if possible. y Current Visit: No Qualifiers: Ankylosing spondylitis location: multiple sites in spine Qualified Code(s) : M45.0 - Ankylosing spondylitis of multiple sites in spine History of Present Illness Chief complaint: Back pain History of present illness: Mr. Fischer is a 66 year old male known chronic spinal disease and back pain as well as generalized joint pain. He was admitted earlier this week for episodes of increased confusion. Back pain is throbbing aching discomfort. Home Medications Medication Instructions Recorded Confirmed Type Imipramine HCl 25 mg PO DAILY 02/20/17 05/03/17 History Levothyroxine Tab [Synthroid Tab] 100 mcg PO DAILY 02/20/17 05/03/17 History Theophylline ER Tab 300 mg PO Q12H 02/20/17 05/03/17 History Bisoprolol [Zebeta] 5 mg PO DAILY tablet 03/02/17 05/03/17 Rx Folic Acid Tab 1 mg PO DAILY tablet 03/02/17 05/03/17 Rx Lidocaine 5% Patch [Lidoderm 5% 1 patch TRANSDERM DAILY patch 03/02/17 Rx Patch] Multivitamin (Centrum) [Centrum 1 tablet PO DAILY tablet 03/02/17 05/03/17 Rx Tab] Thiamine Tab [Vitamin B1 Tab] 100 mg PO DAILY tablet 03/02/17 05/03/17 Rx miSOPROStol [Cytotec] 200 mcg PO DAILY tablet 03/02/17 05/03/17 Rx Albuterol Sulfate [Albuterol Neb] 2.5 mg RESP TX TID 04/11/17 05/03/17 History Ascorbic Acid Tab [Vitamin C Tab] 500 mg PO DAILY 04/11/17 05/03/17 History Bisacodyl Tab [Dulcolax Tab] 5 mg PO DAILY PRN 04/11/17 05/03/17 History Lactulose Liquid [Chronulac] 30 ml PO BID 04/11/17 05/03/17 History HYDROcodone/ACETAMIN 5-325 [Pledger 1 tablet PO Q8H PRN #90 tablet 04/19/17 Rx 5-325] Skin Healing Oint (Aquaphor) 1 applic TOP PRN PRN applic 04/19/17 05/03/17 Rx [Aquaphor] Clorazepate [Tranxene] 3.75 mg PO BEDTIME 05/04/17 05/04/17 History fentaNYL 12 MCG/HR PATCH 1 patch TRANSDERM Q3DAY 05/04/17 05/04/17 History [Duragesic 12 Patch] Allergies Allergy/AdvReac Type Severity Reaction Status Date / Time codeine Allergy Unknown UNRESPONSIV Verified 04/12/17 00:48 E acetaminophen [From Percocet] Allergy Verified 04/12/17 00:48 escitalopram [From Lexapro] Allergy Verified 04/12/17 00:48 gabapentin [From Neurontin] Allergy Verified 04/12/17 00:48 Hydromorphone [From Dilaudid] Allergy Verified 04/12/17 00:48 Oxycodone [From Percocet] Allergy Verified 04/12/17 00:48 Medical,Surgical,& Family Hx - Medical History Cardio: History of: CAD, Hypertension, Pacemaker No history of: [place], PVD Psychological: History of: Anxiety Disorders, Depression Neurology: History of: Vertigo HEENT: History of: Eye Problem (WEARS GLASSES, NEAR SIGHTED, CATARACT LEFT EYE) Endocrine: History of: Thyroid Disorder No history of: Diabetes Mellitus (IDDM), Diabetes Mellitus (NIDDM), Dyslipidemia Respiratory: History of: Bronchitis, COPD, Intubation, Pulmonary Hypertension, Pneumonia Renal: No history of: Renal Problems Genitourinary: History of: Prostate Problems (PROSTATE CA) Gastrointestinal: History of: Gastrointestinal Bleed, Hemorrhoids Musculoskeletal: History of: Back/Neck Problems, Degenerative Disk Disease, Herniated Disk, Musculoskeletal Problems (suspected MS, fx ) Hematology: No history of: Anemia Other: History of: Cancer (prostate ca), Miscellaneous Medical Problems ( ankylosing spondylitis) - Surgical History Cardiac Surgeries: Patient Denies: Femoral-Popliteal Bypass Graft, Cardiac Catheterization, Cardiac Surgery, Carotid Endarterectomy, Internal Defibrillator, Vascular Access Devices Thoracic Surgeries: Patient denies;: Organ Transplant Neurologic Surgeries: Patient denies: Neurologic Surgery HEENT Surgeries: Surgical HX of: Tonsilectomy & Adenoidectomy Patient denies: Carotid Endarterectomy Abdominal Surgeries: Patient denies: Abdominal Surgery, Splenectomy Reproductive Surgeries: Surgical HX of;: Genitourinary Surgery, Prostate Surgery (PROSTATECTOMY) Orthopedic Surgeries: Surgical HX of;: Orthopedic Surgery (RIGHT ANKLE FRACTURE) - Family History Family History: Reports;: Family Cancer (FATHER (TESTICULAR CA)), Family Diabetes (FATHER), Family Heart Disease (MOTHER), Family Hypertension - Social History Smoking Status: Former smoker Frequency of Alcohol Use: None Type of Drug Use: None Quality Measures - Stroke Symptom Onset Unknown: No - Constitutional Constitutional: Present: daytime sleepiness - Musculoskeletal Musculoskeletal: Present: arthralgias, back pain, joint swelling, muscle weakness (Lower extremities) - Neurological Neurological: Present: abnormal speech, behavioral changes, focal weakness, memory loss, numbness, paresthesias (Lower extremities) Exam - Constitutional Vitals: Period Temp Pulse Resp BP Sys/Ivey Pulse Ox Last 24 Hr 97.3 F-98.1 F 92-120 17-26 112-142/65-91 77-100 General appearance: normal weight, no acute distress - Eye Eye exam: Present: EOMI - Neck Neck exam: Present: trachea midline - Respiratory Respiratory exam: Present: clear to auscultation bilaterally - Cardiovascular Cardiovascular exam: Present: RRR - GI/Abdominal GI/Abdominal exam: Present: normal bowel sounds - Back Exam Back exam: Present: vertebral tenderness - Neurological Exam Neurological exam: Present: alert, motor sensory deficit (Both lower extremities with almost no movement of his feet) Speech: Present: abnormal (Trouble word finding) - Skin Skin exam: Present: normal color Results - Labs CBC & BMP: 05/04/17 07:12 05/04/17 07:12
--- NOTE | 2017-05-04 12:40 | Ultrasound Report ---
US venous doppler LE BI Indication: Hypoxemia. Lower extremity edema. BILATERAL LOWER EXTREMITY VENOUS ULTRASOUND Comparison: 12/12/2015 Findings: Graded grayscale compression, color Doppler and pulsed Doppler ultrasound evaluation of the venous structures performed. Normal compressibility, augmentation and color saturation is present within bilateral common femoral, superficial femoral, popliteal and proximal greater saphenous veins. Impression: No evidence of DVT either lower extremity. PROCEDURE INTERPRETED AT [facility] DEPARTMENT OF RADIOLOGY Final Report Signed by: Brennan Quiles M.D.
--- NOTE | 2017-05-04 13:03 | Ultrasound Report ---
US abdomen limited Indication: Pleural effusion. Evaluate for ascites. ULTRASOUND ABDOMEN, limited Comparison: 11/11/2015 Findings: Targeted evaluation of the 4 quadrants the abdomen show no evidence of ascites. Impression: No ascites. PROCEDURE INTERPRETED AT [facility] DEPARTMENT OF RADIOLOGY Final Report Signed by: Brennan Quiles M.D.
--- NOTE | 2017-05-04 18:03 | ECHO Report ---
Royer Fischer Exam Date: 05/04/2017 11:20 Referring Physician: Technologist: Birgit Verduzco ROBBI Age: 66 Ht (in): 77 Wt (lb): 230 Gender: M Exam Location: [facility] Echo Indications: Bilateral pleural effusions, Shortness of breath, Hypoxia, UTI, Presence of cardiac pacemaker BP: 142 / 68 HR: Rhythm: Sinus Technical Quality: IMPRESSIONS Technically difficult study Normal chamber sizes Approximately normal LV systolic function with ejection fraction estimated be 60% Approximately 1+ mitral and aortic regurgitation 1-2+ tricuspid regurgitation with RVSP 62 mmHg plus RAP suggesting severe pulmonary hypertension MEASUREMENTS (Male / Female) Normal Values 2D ECHO LV Diastolic Diameter PLAX 4.0 cm 4.2 - 5.9 / 3.9 - 5.3 cm LV Systolic Diameter PLAX 3.0 cm LV Fractional Shortening PLAX 26.2 % IVS Diastolic Thickness 1.0 cm 0.6 - 1.0 / 0.6 - 0.9 cm LVPW Diastolic Thickness 1.0 cm 0.6 - 1.0 / 0.6 - 0.9 cm RV Internal Dim ED PLAX 2.4 cm Aortic Root Diameter 3.4 cm LA Systolic Diameter LX 2.8 cm 3.0 - 4.0 / 2.7 - 3.8 cm DOPPLER TR Peak Velocity 394.0 cm/s TR Peak Gradient 62.1 mmHg FINDINGS Left Ventricle Normal left ventricular cavity size. Normal left ventricular wall thickness. Left ventricular ejection fraction is estimated at 55 %. Right Ventricle The right ventricle is normal in size and function. Right Atrium The right atrium is normal in size. Left Atrium The left atrium is normal in size. Mitral Valve Mildly thickened mitral valve. Mild mitral valve regurgitation. Aortic Valve Mild aortic valve sclerosis without stenosis. Mild aortic valve regurgitation. Tricuspid Valve Morphologically normal tricuspid valve. Gxtf-lk-ujwyvsxe tricuspid valve regurgitation. Tricuspid regurgitation velocities suggest a PAP of 72 mmHg. Pulmonic Valve Morphologically normal pulmonic valve. Trace pulmonary valve regurgitation. Pericardium Normal pericardium without effusion. Aorta Normal ascending aorta dimension. Desean Vega (Electronically Signed) Final Date: 04 May 2017 18:02
[2017-05-04] MEDS: CLORAZEPATE 3.75 MG TABLET PO SCH (21:16)
[2017-05-04] MEDS ORDERED: cefTRIAXone 1,000 MG in SODIUM CHLORIDE 0.9% 100 ML IV SCH (23:00)
[2017-05-05] MEDS: ALBUTEROL/IPRATROPIUM 3 ML NEB RESP TX SCH ×4 (01:01→19:51)
[2017-05-05] MEDS: AZITHROMYCIN INJ 500 MG in SODIUM CHLORIDE 0.9% 250 ML IV SCH (03:41)
[2017-05-05] MEDS: ENOXAPARIN 40 MG/0.4 ML SYRINGE SUBCUT SCH (04:12)
[2017-05-05] MEDS ORDERED: AZITHROMYCIN INJ 500 MG in SODIUM CHLORIDE 0.9% 250 ML IV SCH (06:00)
[2017-05-05 07:20] LABS: Basophils % 0.7 % (0.0-0.8); Eosinophils # 0.2 10*3/uL (0.0-0.87); Eosinophils % 3.7 % (0.00-10.9); Hematocrit 33.6 VOL% (42.0-52.0); Hemoglobin 10.7 GM/DL (14.0-18.0); Immature Granulocytes % 0.7 %; Immature Granulocytes Absolute 0.04 #; Lymphocytes # 0.8 10*3/uL (1.4-4.0); Mean Corpuscular HGB Conc 31.8 GM/DL (32-36); Mean Corpuscular Hemoglobin 33 PG (27-34); Mean Corpuscular Volume 103.7 FL (87-102); Mean Platelet Volume 11.2 FL (9.6-12.0); Monocytes # 0.8 10*3/uL (0.11-0.8); Neutrophils # 4.1 10*3/uL (1.4-7.4); Neutrophils % 68.9 % (38.7-73.9); Platelet Count 172 T/CUMM (130-400); Red Blood Count 3.24 MC/CUMM (3.8-5.5); Red Cell Distribution Width 13.9 % (9.3-17.3); White Blood Count 5.9 T/CUMM (4-12)
[2017-05-05 07:56] LABS: Calcium 8.8 MG/DL (8.5-10.1); Magnesium 2.5 MG/DL (1.8-2.4); Osmolality,Calculated 281.1 MOS/KG (273-304); Potassium 4.7 MMOL/L (3.5-5.1)
--- NOTE | 2017-05-05 08:34 | Event Note ---
Dr Odell is out of town until Monday, and I was not aware of this consult as our office had not been notified of Mr Fischer's admission. I have seen the patient and spoken to Wound Nurse Toya Castro RN, who is familiar with this patient. He currently has no open wounds but is at tremendously increased risk and is vulnerable to breakdown due to immobility and anasarca/ascites/altered mental status. His was not present during my visit and Mr Fischer was confused at times. His nurse for today was present, and she and I discussed his situation and the fact that Dr Odell will not be in town until Monday. If formal surgery consult is needed, Dr Sascha RANGEL is following. We will plan to have Toya follow the patient with her current offloading/wound/skin protocol, and be available next week if needed.
--- NOTE | 2017-05-05 08:59 | XRay Report ---
Portable chest Date: 05/05/2017 Clinical history: Shortness of breath, pleural effusion Comparison: 05/03/2017 Technique: Portable AP sitting chest Findings: Stable cardiomegaly with left subclavian atrioventricular permanent pacemaker. Reduced parenchymal findings with persistent moderate right and rmzwh-em-meyupifj left pleural effusions. Known kyphotic deformity with bridging osteophytes and prior kyphoplasty. Impression: Minimally improved pulmonary edema/infiltration with residual moderate right and lfkiz-xg-yfjfwinr left pleural effusions. Chronic ossific findings with left subclavian atrioventricular permanent pacemaker. PROCEDURE INTERPRETED AT [facility] DEPARTMENT OF RADIOLOGY Final Report Signed by: Dr. Aniya Milligan
[2017-05-05] MEDS: miSOPROStol 200 MCG TABLET PO SCH (09:55)
[2017-05-05] MEDS: THIAMINE 100 MG TABLET PO SCH (09:59)
[2017-05-05] MEDS: LACTULOSE 20 GM/30 ML UDCUP PO SCH (09:59)
[2017-05-05] MEDS: IMIPRAMINE 25 MG TABLET PO SCH (09:59)
[2017-05-05] MEDS: MULTIVITAMIN (CENTRUM) TABLET PO SCH (09:59)
[2017-05-05] MEDS: PANTOPRAZOLE 40 MG TABLET PO SCH (09:59)
[2017-05-05] MEDS: LEVOTHYROXINE 100 MCG TABLET PO SCH (10:00)
[2017-05-05] MEDS: ASCORBIC ACID 500 MG TABLET PO SCH (10:00)
[2017-05-05] MEDS: FOLIC ACID 1 MG TABLET PO SCH (10:01)
[2017-05-05] MEDS: LEVOFLOXACIN INJ 500 MG in PREMIX 1 EACH IV SCH (10:03)
[2017-05-05] MEDS: LIDOCAINE 5% PATCH TRANSDERM SCH (10:05)
[2017-05-05] MEDS: BISOPROLOL 5 MG TABLET PO SCH (10:05)
--- NOTE | 2017-05-05 10:43 | Physician Query Form ---
CLICK EDIT DOCUMENT TO SELECT QUERY ANSWER --> OK --> SIGN Prisca Crandall RN Clinical Goat Driver W) [phone] (f) [phone] [email or web address] PROVIDERS: Make your selection(s) from the choices in EACH section by typing an "x" and enter comments in the comment section. Please use your independent medical judgment in providing your response. This request does not imply that any particular answer is desired or expected. CLINICAL INDICATORS: (Providers should not edit this section) Based on documentation of "Acute UTI" "Confusion" "Acute altered mental status most likely secondary to UTI but consider other causes" Treated with NS bolus, IV Rocephin, IV Zithromax, IV Levaquin, and IV Fortaz. ACUITY: ( ) Acute ( ) Acute on Chronic ( ) Chronic ( ) Clinically unable to determine NATURE: ( ) Delirium due to general medical condition ( ) Dementia ( ) Encephalopathy ( ) Unconscious ( ) Transient level of awareness ( ) Comatose ( ) Locked-in State ( ) Persistent Vegetative State ( ) Other, please specify: ( ) Clinically unable to determine Please indicate the underlying cause of the altered mental status (CHECK ALL THAT APPLY): ( ) Baseline dementia ( ) Alzheimer's disease ( ) Parkinson's disease ( ) Lewy body dementia ( ) Acute stroke ( ) Late effect of stroke ( ) Reactive (from emotional stress, psychological trauma) ( ) Due to narcotics/other drugs ( ) Post procedural delirium ( ) Transient ischemic attack ( ) Generalized cerebral edema ( ) Normal pressure hydrocephalus ( ) Psychiatric illness ( ) Other, please specify: ( ) Clinically unable to determine Please indicate if there is an infection, sepsis, dehydration or specific organ failure that is causing the dementia. Be specific with clarifying the relationship between that process and the mental status change. COMMENTS: PLEASE ALSO DOCUMENT RESPONSE IN PROGRESS NOTES AND/OR DISCHARGE SUMMARY Use of terms such as suspected, likely, or probable (associated with a specific diagnosis that is being evaluated, monitored, or treated as if it exists) are acceptable and can be restated in the discharge summary if not ruled out. MTDD
[2017-05-05] MEDS ORDERED: FUROSEMIDE 40 MG/4 ML VIAL IV ONE (10:59)
--- NOTE | 2017-05-05 12:07 | Pulmonology Progress Note ---
Pulmonary - PN: Subj Interval history: Tuan Philip, AGPCNP-, acting as scribe for Dr. Bala Ramírez Mr. Fischer is a 66-year-old white male who we saw in initial pulmonary consultation on 05/04/2017. At that time, our impressions were: #1: Acute altered mental status most likely secondary to #2 but consider other causes #2: Acute urinary tract infection #3: Ankylosing spondylitis with probable spinal stenosis. Anatomy and pain limited mobility. #4: Peripheral sensory neuropathy. His symptoms have gradually worsened over time. #5: Chronic venous stasis of the lower extremities. #6: Vitamin B deficiency. #7: Past history of tobacco abuse #8: COPD/asthma #9: Past history of high blood pressure #10: Hypothyroidism #11: Bilateral pleural effusions of unknown etiology #12: Dual-chamber cardiac pacemaker #13: History of marijuana use #14: History of compression fractures with chronic pain. Now under the care of Dr. Patel. #15: See past history 05/05/2017. Patient was seen today along with his . The patient is awake, alert, and oriented this morning. His theophylline was discontinued per the 's request yesterday. Of note, his theophylline level was 7.9. He has been seen in pain management consultation with Dr. Patel. His note has been reviewed. We appreciate his assistance. He will be out of town for the next few days, but upon his return we will begin tapering the patient's pain medications as per his note. Patient's lower extremities continue to be edematous. We will give Mr. Keith a one-time dose of IV Lasix. We will start Zaroxolyn 5 mg p.o. daily and KCl 20 mEq daily. Daily BMP/magnesium has been ordered. The patient's echocardiogram this admission as read by Dr. Vega showed an estimated EF of 60%, approximately 1+ mitral and aortic regurgitation , 1-2+ tricuspid regurgitation with a right ventricular systolic pressure of 60 mmHg plus the right atrial pressure suggesting severe pulmonary hypertension. This is a significant change from the echocardiogram done 04/12/[address] Nova which showed an EF estimated at 60%, grade 1 diastolic dysfunction, normal to mildly elevated filling pressures, mild aortic valve regurgitation, moderate ventricular hypertrophy with no demonstrable increase in right-sided pressure, and tricuspid regurgitation velocity suggesting a right ventricular systolic pressure of 23 mmHg plus the right atrial pressure. On chest x-ray today, the pleural effusion is improved. This patient has great difficulty laying flat given his ankylosing spondylitis, so we will begin diuresing him with his Zaroxolyn and see if his pleural effusion will resolve rather than proceed with CT PE protocol at this time. We will repeat a chest x-ray on Monday. Doppler venograms showed no evidence of dizziness thrombophlebitis. Abdominal ultrasound showed no ascites. Medications have been reviewed. Labs have been reviewed. White count is 5900 with a normal differential; H&H 10.7/33.6; platelet count 172,000; creatinine 0.40, BUN 8, electrolytes are normal; magnesium 2.5 Microbiology has been reviewed. Urine culture has grown E. coli. He is on Fortaz and Levaquin. Urine drug screen was positive for benzodiazepines and cannabinoids Exam (Progress Note) - Constitutional Vitals: Period Temp Pulse Resp BP Sys/Ivey Pulse Ox Last 24 Hr 5 F-98.0 F 83-105 18-28 118-166/66-83 88-99 Exam: Chest is fairly clear Heart no gallop Abdomen is obese, but nontender and nondistended; bowel sounds are positive 4 Extremities with nothing to suggest acute deep venous thrombophlebitis; bilateral pedal and pretibial edema; chronic venous stasis changes Psychiatric presently oriented 3 Neurologic unchanged Plan: Lasix 40 mg IV 1. Zaroxolyn 5 mg p.o. daily. KCl 20 mEq p.o. daily. Daily BMP and magnesium. Chest x-ray on Monday. Consult physical therapy. See orders. Results - Labs CBC & BMP: 05/05/17 07:11 05/05/17 07:11
[2017-05-05] MEDS: metOLazone 5 MG TABLET PO SCH (12:11)
[2017-05-05] MEDS: POTASSIUM CHLORIDE 20 MEQ TABLET PO SCH (12:12)
--- NOTE | 2017-05-05 14:57 | Neurology Consult Note ---
History of Present Illness History of present illness: Mr. Fischer is a 66 year old right-handed white gentleman with past medical history significant for hypertension, pacemaker, anxiety, depression, thyroid disorder, diabetes, ankylosing spondylitis, paraplegia admitted to the hospital with symptoms of decreasing level of consciousness, confusion, mumbling speech and some questionable shaking. Patient is a resident at shelter. Apparently he was having some kind of "spell". During this time he has difficult breathing and could not speak. These spells have been going on for a while. He has about 8-10 a month. He has been hospitalized several times with dizzy spells. It was thought that it is related to metabolic encephalopathy as well as medication side effects. He follows with Dr. Patel who is trying to wean him down from his pain medicines. During the spells he has tremors slurred speech jumbling words together. All of his symptoms have resolved completely. On top of everything , his urine is positive for cannabinoids. Home Medications Medication Instructions Recorded Confirmed Type Imipramine HCl 25 mg PO DAILY 02/20/17 05/03/17 History Levothyroxine Tab [Synthroid Tab] 100 mcg PO DAILY 02/20/17 05/03/17 History Theophylline ER Tab 300 mg PO Q12H 02/20/17 05/03/17 History Bisoprolol [Zebeta] 5 mg PO DAILY tablet 03/02/17 05/03/17 Rx Folic Acid Tab 1 mg PO DAILY tablet 03/02/17 05/03/17 Rx Lidocaine 5% Patch [Lidoderm 5% 1 patch TRANSDERM DAILY patch 03/02/17 Rx Patch] Multivitamin (Centrum) [Centrum 1 tablet PO DAILY tablet 03/02/17 05/03/17 Rx Tab] Thiamine Tab [Vitamin B1 Tab] 100 mg PO DAILY tablet 03/02/17 05/03/17 Rx miSOPROStol [Cytotec] 200 mcg PO DAILY tablet 03/02/17 05/03/17 Rx Albuterol Sulfate [Albuterol Neb] 2.5 mg RESP TX TID 04/11/17 05/03/17 History Ascorbic Acid Tab [Vitamin C Tab] 500 mg PO DAILY 04/11/17 05/03/17 History Bisacodyl Tab [Dulcolax Tab] 5 mg PO DAILY PRN 04/11/17 05/03/17 History Lactulose Liquid [Chronulac] 30 ml PO BID 04/11/17 05/03/17 History HYDROcodone/ACETAMIN 5-325 [[place] 1 tablet PO Q8H PRN #90 tablet 04/19/17 Rx 5-325] Skin Healing Oint (Aquaphor) 1 applic TOP PRN PRN applic 04/19/17 05/03/17 Rx [Aquaphor] Clorazepate [Tranxene] 3.75 mg PO BEDTIME 05/04/17 05/04/17 History fentaNYL 12 MCG/HR PATCH 1 patch TRANSDERM Q3DAY 05/04/17 05/04/17 History [Duragesic 12 Patch] Allergies Allergy/AdvReac Type Severity Reaction Status Date / Time codeine Allergy Unknown UNRESPONSIV Verified 04/12/17 00:48 E acetaminophen [From Percocet] Allergy Verified 04/12/17 00:48 escitalopram [From Lexapro] Allergy Verified 04/12/17 00:48 gabapentin [From Neurontin] Allergy Verified 04/12/17 00:48 Hydromorphone [From Dilaudid] Allergy Verified 04/12/17 00:48 Oxycodone [From Percocet] Allergy Verified 04/12/17 00:48 12 point system: reviewed and no additional remarkable complaints except as stated Medical,Surgical,& Family Hx - Medical History Cardio: History of: CAD, Hypertension, Pacemaker No history of: KS, PVD Psychological: History of: Anxiety Disorders, Depression Neurology: History of: Vertigo HEENT: History of: Eye Problem (WEARS GLASSES, NEAR SIGHTED, CATARACT LEFT EYE) Endocrine: History of: Thyroid Disorder No history of: Diabetes Mellitus (IDDM), Diabetes Mellitus (NIDDM), Dyslipidemia Respiratory: History of: Bronchitis, COPD, Intubation, Pulmonary Hypertension, Pneumonia Renal: No history of: Renal Problems Genitourinary: History of: Prostate Problems (PROSTATE CA) Gastrointestinal: History of: Gastrointestinal Bleed, Hemorrhoids Musculoskeletal: History of: Back/Neck Problems, Degenerative Disk Disease, Herniated Disk, Musculoskeletal Problems (suspected MS, fx T-) Hematology: No history of: Anemia Other: History of: Cancer (prostate ca), Miscellaneous Medical Problems ( ankylosing spondylitis) - Surgical History Cardiac Surgeries: Patient Denies: Femoral-Popliteal Bypass Graft, Cardiac Catheterization, Cardiac Surgery, Carotid Endarterectomy, Internal Defibrillator, Vascular Access Devices Thoracic Surgeries: Patient denies;: Organ Transplant Neurologic Surgeries: Patient denies: Neurologic Surgery HEENT Surgeries: Surgical HX of: Tonsilectomy & Adenoidectomy Patient denies: Carotid Endarterectomy Abdominal Surgeries: Patient denies: Abdominal Surgery, Splenectomy Reproductive Surgeries: Surgical HX of;: Genitourinary Surgery, Prostate Surgery (PROSTATECTOMY) Orthopedic Surgeries: Surgical HX of;: Orthopedic Surgery (RIGHT ANKLE FRACTURE) - Family History Family History: Reports;: Family Cancer (FATHER (TESTICULAR CA)), Family Diabetes (FATHER), Family Heart Disease (MOTHER), Family Hypertension - Social History Smoking Status: Former smoker Frequency of Alcohol Use: None Type of Drug Use: None Exam - Constitutional Vitals: Period Temp Pulse Resp BP Sys/Ivey Pulse Ox Last 24 Hr 5 F-98.0 F 80-115 17-28 118-166/66-83 86-99 Exam: GENERAL: Patient is in no acute distress. NECK: Neck is supple. There is no JVD. No carotid bruits present. No thyroid masses. CVS: First and second heart sounds are normal. There is no S3 present. Regular rate and rhythm. RESPIRATORY: Lungs are clear to auscultation without any rales or rhonchi. ABDOMEN: Soft and non-tender. Bowel sounds are present. There is no hepatosplenomegaly. EXT: There is no palpable edema. Peripheral pulses are present. Skin: No rashes Central Nervous system: General: Alert, awake and Oriented x 3 Speech: Fluent Comprehension: Intact and normal Facial expressions: Normal Cranial Nerves: CN1/Olfactory: Normal CN II/ Optic: Normal, Visual Chávez unreliable CN III, and : SAMSON & EOMI CN V: Normal & intact CN VII: face is symmetric CNVIII: Normal CN XI/X/XI/XII: Intact and Normal Motor: Bulk and Tone is normal. Strength in the lower extremities 0/5 Strength in the upper extremities 3/ Sensory: Decreased for all the modalities of PP, LT and temp sense Reflexes: 1+ and symmetrical Cerebellar function: Slow finger to nose testing. Toes: Equivocal Gait: Does not walk at all. Results - Labs CBC & BMP: 05/05/17 07:11 05/05/17 07:11 Assessment and Plan (1) Altered mental status Status: Acute Assessment and plan: This is due to the combination of pain medications, UTI and use of marijuana/ cannabinoids. I am not aware of anything in the home medication list which can cause positive cannabinoids in urine. At any rate his mental status is back to his baseline No further intervention/recommendations from neuro stand Defer pain management to Dr. Patel Sign off please call as needed Current Visit: No Qualifiers: Altered mental status type: disorientation Qualified Code(s): R41.0 - Disorientation, unspecified
--- NOTE | 2017-05-05 15:59 | Hospitalist Progress Note ---
Assessment and Plan (1) Decubitus ulcer Status: Acute Assessment and plan: Dr. Odell consulted Current Visit: No Qualifiers: Pressure ulcer location: contiguous region involving back and buttock Pressure ulcer stage: stage 2 (2) Altered mental status Status: Resolved Assessment and plan: Better today Current Visit: No Qualifiers: Altered mental status type: disorientation Qualified Code(s): R41.0 - Disorientation, unspecified (3) Hypoxia Status: Acute Current Visit: Yes (4) Pleural effusion Status: Acute Assessment and plan: CXR today shows improvement Pulmonary managing with lasix and metolazone Current Visit: Yes (5) UTI (urinary tract infection) Status: Acute Assessment and plan: Antibiotics changed to Fortaz and levaquin by pulmonary Urine culture growing E.coli Current Visit: Yes (6) Lower extremity edema Status: Acute Assessment and plan: Given a dose of lasix and started on metolazone by pulmonary Current Visit: No Hospitalist: Subjective Interval history: No acute events overnight. Patient reports back pain that is controlled on current regimen. Patient's family member was concerned about his ability to swallow, he passed his speech evaluation. Exam - Constitutional Vitals: Period Temp Pulse Resp BP Sys/Ivey Pulse Ox Last 24 Hr 5 F-98.0 F 80-115 17-28 118-166/66-83 86-99 General appearance: over weight - Head Head exam: Present: normocephalic, atraumatic - Eye Eye exam: Present: EOMI Pupils: Present: SAMSON - ENT ENT exam: Present: normal exam - Neck Neck exam: Present: normal inspection - Respiratory Respiratory exam: Present: clear to auscultation bilaterally. Absent: rhonchi, wheezes - Cardiovascular Cardiovascular exam: Present: regular rate and rhythm - GI/Abdominal GI/Abdominal exam: Present: normal bowel sounds, soft. Absent: tenderness, rebound - Extremities Exam Extremities exam: Present: normal inspection - Back Exam Back exam: Present: normal inspection - Neurological Exam Neurological exam: Present: alert, oriented X3 - Psychiatric Psychiatric exam: Present: normal affect, normal mood - Skin Skin exam: Present: warm, intact Results - Labs CBC & BMP: 05/05/17 07:11 05/05/17 07:11 Quality Measures - Stroke Symptom Onset Unknown: No
--- NOTE | 2017-05-05 18:10 | Gastrointestinal Consult Note ---
Assessment and Plan (1) Dysphagia, pharyngoesophageal Status: Acute Assessment and plan: This patient may have reflux in association with his chronic inability to change his position and remain upright. There may be reflux induced by a hypomotility the GI tract as well. It is possible that esophageal stricturing may be occurring as a result of impingement on the esophagus by bridging osteophytes from his fairly severe ankylosing spondylitis as well. I will have the patient undergo a barium swallow to evaluate this tomorrow and will plan on doing upper endoscopy with potential dilation to follow on Monday morning. I will leave him off of his anticoagulation for at least one day prior to the endoscopy to occur on Monday. In the interim we will go ahead and place the patient on pantoprazole IV twice daily to see if this helps out with his appetite. Will also add some medications colonic flow and decrease his bloating by getting rid of the lactulose. Risks of the above endoscopy include but are not limited to: Bleeding, infection, perforation, cardiac and pulmonary compromise. These were discussed with the patient, his , and son and they agreed to proceed with upper endoscopy to occur on Monday. Current Visit: Yes (2) Abnormal weight loss Status: Acute Assessment and plan: For the past year the patient states that his weight has dropped from 275 pounds to 229 pounds. He states that while some of this is volitional some of it is certainly not and he is only been able to eat about 10% of his trays while here. He does not have the sensation of reflux. His difficulty with swallowing is overcome by chewing his food extremely carefully and following bites with clear liquids in between. This only occurs with solids and is highly suspicious for a physical stricture versus cancer. Again a barium swallow is being arranged for tomorrow--not only will this look for physical stricture but also assess for spinal impingement and dysmotility at the same time. Current Visit: Yes (3) Macrocytic anemia Status: Acute Assessment and plan: May be related to B12 or folate deficiency versus alcohol intake versus myelodysplastic syndrome. His platelet level is normal I do not believe this is cirrhosis-related. Current Visit: Yes (4) Chronic constipation Status: Acute Assessment and plan: This patient does have chronic constipation possibly related to his intake of hydrocodone/acetaminophen as well as his low-dose fentanyl patch and poor mobility possibly poor hydration. She has been given lactulose which is probably adding to his bloating and I have discontinued this medication. His has had great success with enemas and magnesium citrate at home. I am going to see if we can get by using Linzess in addition to MiraLAX instead. Orders have been written we need to observe and see what effect he has with these medications. Certainly would like to stop the MiraLAX first if this ends up being a brisk response to the Linzess. Current Visit: Yes (5) Screening for colorectal cancer Status: Acute Assessment and plan: This patient may benefit from routine risk colorectal cancer screening at some point in the future. He is concerned about being put to sleep. He does have some anemia and it would be reasonable to do this at some point. It does not sound like he has ever had colonoscopy, and my discussions with him. Current Visit: Yes History of Present Illness Chief complaint: Dysphagia, abnormal weight loss from 275-->229 over the last 1 year History of present illness: Mr. 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 His states that he eats about 10% of his trays and is able to supplement this with boost or Ensure at various nursing homes that he is ended up in. He has never had upper endoscopy but has had some difficulty with food getting stuck at about the base of his throat. He does not vomit but does feel nausea upon occasion. He has had some difficulty with constipation as a result taking narcotics with one bowel movement every 8-10 days, he had his last bowel movement around 05/03/17. Sensation of reflux. He had been tried on a combination of lactulose and Dulcolax but this has not worked well for him at his last [facility] location ([facility]). 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 He does have some mild anemia and interestingly has a high MCV which may be associated with nutrient deficiencies versus alcohol use. The patient has severe peripheral edema in his lower extremities but his total protein and albumin are 5.8 and 2.5. Looking through his home medications he has not been on a proton pump inhibitor. His only narcotic is actually fentanyl 12.5 mcg/h patch along with hydrocodone/acetaminophen 5/325 one every 8 hours. He remember ever being started on Linzess, Amitiza, Movantik, or Relistor. He passed a bedside swallowing study with no signs or symptoms of aspiration but did take a great deal of time to chew in order to go past what he perceives as a strictured area in his mid upper esophagus. He has never had to vomit to get food out. The patient is interviewed in the presence of his and his son who corroborate his story. Home Medications Medication Instructions Recorded Confirmed Type Imipramine HCl 25 mg PO DAILY 02/20/17 05/03/17 History Levothyroxine Tab [Synthroid Tab] 100 mcg PO DAILY 02/20/17 05/03/17 History Theophylline ER Tab 300 mg PO Q12H 02/20/17 05/03/17 History Bisoprolol [Zebeta] 5 mg PO DAILY tablet 03/02/17 05/03/17 Rx Folic Acid Tab 1 mg PO DAILY tablet 03/02/17 05/03/17 Rx Lidocaine 5% Patch [Lidoderm 5% 1 patch TRANSDERM DAILY patch 03/02/17 Rx Patch] Multivitamin (Centrum) [Centrum 1 tablet PO DAILY tablet 03/02/17 05/03/17 Rx Tab] Thiamine Tab [Vitamin B1 Tab] 100 mg PO DAILY tablet 03/02/17 05/03/17 Rx miSOPROStol [Cytotec] 200 mcg PO DAILY tablet 03/02/17 05/03/17 Rx Albuterol Sulfate [Albuterol Neb] 2.5 mg RESP TX TID 04/11/17 05/03/17 History Ascorbic Acid Tab [Vitamin C Tab] 500 mg PO DAILY 04/11/17 05/03/17 History Bisacodyl Tab [Dulcolax Tab] 5 mg PO DAILY PRN 04/11/17 05/03/17 History Lactulose Liquid [Chronulac] 30 ml PO BID 04/11/17 05/03/17 History HYDROcodone/ACETAMIN 5-325 [[place] 1 tablet PO Q8H PRN #90 tablet 04/19/17 Rx 5-325] Skin Healing Oint (Aquaphor) 1 applic TOP PRN PRN applic 04/19/17 05/03/17 Rx [Aquaphor] Clorazepate [Tranxene] 3.75 mg PO BEDTIME 05/04/17 05/04/17 History fentaNYL 12 MCG/HR PATCH 1 patch TRANSDERM Q3DAY 05/04/17 05/04/17 History [Duragesic 12 Patch] Allergies Allergy/AdvReac Type Severity Reaction Status Date / Time codeine Allergy Unknown UNRESPONSIV Verified 04/12/17 00:48 E acetaminophen [From Percocet] Allergy Verified 04/12/17 00:48 escitalopram [From Lexapro] Allergy Verified 04/12/17 00:48 gabapentin [From Neurontin] Allergy Verified 04/12/17 00:48 Hydromorphone [From Dilaudid] Allergy Verified 04/12/17 00:48 Oxycodone [From Percocet] Allergy Verified 04/12/17 00:48 Medical,Surgical,& Family Hx - Medical History Cardio: History of: CAD, Hypertension, Pacemaker No history of: GA, PVD Psychological: History of: Anxiety Disorders, Depression Neurology: History of: Vertigo HEENT: History of: Eye Problem (WEARS GLASSES, NEAR SIGHTED, CATARACT LEFT EYE) Endocrine: History of: Thyroid Disorder No history of: Diabetes Mellitus (IDDM), Diabetes Mellitus (NIDDM), Dyslipidemia Respiratory: History of: Bronchitis, COPD, Intubation, Pulmonary Hypertension, Pneumonia Renal: No history of: Renal Problems Genitourinary: History of: Prostate Problems (PROSTATE CA) Gastrointestinal: History of: Gastrointestinal Bleed, Hemorrhoids Musculoskeletal: History of: Back/Neck Problems, Degenerative Disk Disease, Herniated Disk, Musculoskeletal Problems (suspected MS, fx T-) Hematology: No history of: Anemia Other: History of: Cancer (prostate ca), Miscellaneous Medical Problems ( ankylosing spondylitis) - Surgical History Cardiac Surgeries: Patient Denies: Femoral-Popliteal Bypass Graft, Cardiac Catheterization, Cardiac Surgery, Carotid Endarterectomy, Internal Defibrillator, Vascular Access Devices Thoracic Surgeries: Patient denies;: Organ Transplant Neurologic Surgeries: Patient denies: Neurologic Surgery HEENT Surgeries: Surgical HX of: Tonsilectomy & Adenoidectomy Patient denies: Carotid Endarterectomy Abdominal Surgeries: Patient denies: Abdominal Surgery, Splenectomy Reproductive Surgeries: Surgical HX of;: Genitourinary Surgery, Prostate Surgery (PROSTATECTOMY) Orthopedic Surgeries: Surgical HX of;: Orthopedic Surgery (RIGHT ANKLE FRACTURE) - Family History Family History: Reports;: Family Cancer (FATHER (TESTICULAR CA)), Family Diabetes (FATHER), Family Heart Disease (MOTHER), Family Hypertension - Social History Smoking Status: Former smoker Frequency of Alcohol Use: None Type of Drug Use: None Review of systems: Constitutional: Denies fever, chills, and vomiting with mild nausea. Eyes: Denies dry eyes, and scleral icterus HENT: Occasional headaches Cardiovascular: Denies acute chest pain Respiratory: Occasional shortness of breath, wheezing, and difficulty breathing, as well as cough Gastrointestinal: As noted in the HPI Genitourinary: Denies dysuria and hematuria Neurologic: He does have some vision loss, and loss of sensation, as well as bilateral lower extremity weakness Musculoskeletal: Admits to joint swelling, joint stiffness, and muscular weakness Psychiatric: The patient does have some depression but no santos symptoms Heme-Lymph: Admits to easy bruising, but no lymph node enlargement or tenderness, night sweats, excessive bleeding Allergies-immunologic: Denies pruritus and rhinorrhea Exam - Constitutional Vitals: Period Temp Pulse Resp BP Sys/Ivey Pulse Ox Last 24 Hr 5 F-98.2 F 55-115 17-28 118-166/66-83 86-99 Exam: Constitutional: Well-developed, well-nourished, alert, and in no acute distress Head and face: Head: Normocephalic atraumatic Eyes: Conjunctiva without injection, no gross scleral icterus, pupils equal and round bilaterally Ears: Intact to conversation in both ears Nose: External appearance is normal, nares patent Mouth: Oral mucous membranes moist without erythema dentition noted to be without erosion Neck: Normal appearance, no masses or tenderness, trachea midline Thyroid: Gland midline and appropriate size for age Respiratory: Normal respiratory effort, decreased respiratory sounds in the bases bilaterally, clear to auscultation without wheezes, rhonchi or rales Cardiovascular: Regular rate and rhythm, occasional skipped beats. Normal S1, S2, the exam is without rubs, murmurs or gallops. Gastrointestinal: The patient's abdomen is very distended and tympanitic with excessive gas. Normal active bowel sounds, tone normal without rigidity or guarding, no masses present, no hepatomegaly, no spleen tip felt. No rectal exam obtained. Lymphatic: Neck without adenopathy, axilla without lymphadenopathy present Musculoskeletal: Right and left lower extremities are extremely edematous + 2 with a prominent appearance of cellulitis to the right pretibial region less so on the left side. Skin and subcutaneous tissue: Right pretibial cellulitis type appearance otherwise without or other rash ulcerations noted, there is slight increase skin turgor, digits and nails without clubbing/cyanosis/deformities. Neurologic: The patient is grossly oriented to person place and time, cranial nerves show tongue movements are normal with normal tongue extrusion midline, light touch sensation is intact. Psychiatric: No hallucinations or delusions are present, does not appear depressed Results - Labs CBC & BMP: 05/05/17 07:11 05/05/17 07:11 Quality Measures - Stroke Symptom Onset Unknown: No
[2017-05-05] MEDS: THEOPHYLLINE ER 300 MG TABLET PO SCH (18:44)
[2017-05-05] MEDS: POLYETHYLENE GLYCOL POWDER 17 GM PACK PO SCH (20:40)
[2017-05-05] MEDS: CLORAZEPATE 3.75 MG TABLET PO SCH (20:40)
[2017-05-06] MEDS: ALBUTEROL/IPRATROPIUM 3 ML NEB RESP TX SCH ×5 (02:12→23:44)
[2017-05-06 03:40] LABS: Calcium 8.7 MG/DL (8.5-10.1); Magnesium 2.2 MG/DL (1.8-2.4); Osmolality,Calculated 276.5 MOS/KG (273-304); Potassium 3.7 MMOL/L (3.5-5.1)
[2017-05-06 03:48] LABS: Folate > 24.0 NG/ML (5.4-24.0); Vitamin B12 927 PG/ML (211-911)
[2017-05-06] MEDS ORDERED: AZITHROMYCIN 250 MG TABLET PO SCH (09:00)
[2017-05-06] MEDS: LEVOFLOXACIN INJ 500 MG in PREMIX 1 EACH IV SCH (09:50)
[2017-05-06] MEDS: LIDOCAINE 5% PATCH TRANSDERM SCH (09:51)
[2017-05-06] MEDS: THIAMINE 100 MG TABLET PO SCH (12:55)
[2017-05-06] MEDS: IMIPRAMINE 25 MG TABLET PO SCH (12:56)
[2017-05-06] MEDS: miSOPROStol 200 MCG TABLET PO SCH (12:56)
[2017-05-06] MEDS: THEOPHYLLINE ER 300 MG TABLET PO SCH ×2 (12:56→17:10)
[2017-05-06] MEDS: MULTIVITAMIN (CENTRUM) TABLET PO SCH (12:56)
[2017-05-06] MEDS: FOLIC ACID 1 MG TABLET PO SCH (12:56)
[2017-05-06] MEDS: PANTOPRAZOLE 40 MG TABLET PO SCH (12:56)
[2017-05-06] MEDS: POTASSIUM CHLORIDE 20 MEQ TABLET PO SCH (12:56)
[2017-05-06] MEDS: metOLazone 5 MG TABLET PO SCH (12:56)
[2017-05-06] MEDS: LEVOTHYROXINE 100 MCG TABLET PO SCH (12:56)
[2017-05-06] MEDS: BISOPROLOL 5 MG TABLET PO SCH (12:56)
[2017-05-06] MEDS: ASCORBIC ACID 500 MG TABLET PO SCH (12:57)
[2017-05-06] MEDS: POLYETHYLENE GLYCOL POWDER 17 GM PACK PO SCH ×2 (12:57→20:35)
[2017-05-06] MEDS: LINACLOTIDE 145 MCG CAPSULE PO SCH (13:02)
--- NOTE | 2017-05-06 13:29 | Fluoroscopy Report ---
FL barium swallow GI Indication: Dysphagia upper esophagus. Ankylosing spondylitis. Barium swallow with upper GI: Single contrast barium study of the esophagus and stomach performed with limited mobility due to advanced ankylosing spondylitis. In general, the esophagus is a narrow structure, especially in the region of the thoracic inlet. However, no stricture, diverticulum or mass is identified. Primary peristaltic activity breaks up at the thoracic inlet and tertiary contractions are present with poor stripping of the barium column. Reflux is noted as well. Gastric mucosal characteristics are unremarkable. The duodenum is unremarkable as well without evidence of ulcer or fold thickening. 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 In general, the upper esophagus is relatively narrow structure but no extrinsic compression of the esophagus noted. Reflux. PROCEDURE INTERPRETED AT [facility] DEPARTMENT OF RADIOLOGY Final Report Signed by: Brennan Quiles M.D.
[2017-05-06] MEDS ORDERED: ALBUTEROL 1.25 MG/3 ML NEB RESP TX PRN (15:39)
--- NOTE | 2017-05-06 15:43 | Hospitalist Progress Note ---
Assessment and Plan (1) Decubitus ulcer Status: Acute Assessment and plan: Dr. Odell consulted Current Visit: No Qualifiers: Pressure ulcer location: contiguous region involving back and buttock Pressure ulcer stage: stage 2 (2) Altered mental status Status: Resolved Assessment and plan: Continues to improve Current Visit: No Qualifiers: Altered mental status type: disorientation Qualified Code(s): R41.0 - Disorientation, unspecified (3) Hypoxia Status: Acute Current Visit: Yes (4) Pleural effusion Status: Acute Assessment and plan: CXR shows improvement Pulmonary managing with lasix and metolazone Current Visit: Yes (5) UTI (urinary tract infection) Status: Acute Assessment and plan: Antibiotics changed to Fortaz and levaquin by pulmonary Urine culture growing E.coli Current Visit: Yes (6) Lower extremity edema Status: Acute Assessment and plan: Given a dose of lasix and started on metolazone by pulmonary Current Visit: No (7) Dysphagia, pharyngoesophageal Status: Acute Assessment and plan: GI on board Plan is for EGD Monday Current Visit: Yes Hospitalist: Subjective Interval history: No acute events overnight. He is without complaints today. His family member reports that he gets anxious intermittently and has to be told to slow his breathing down. Exam - Constitutional Vitals: Period Temp Pulse Resp BP Sys/Ivey Pulse Ox Last 24 Hr 96.1 F-98.2 F 55-111 16-28 124-153/64-83 90-98 General appearance: over weight - Head Head exam: Present: normocephalic, atraumatic - Eye Eye exam: Present: EOMI Pupils: Present: SAMSON - ENT ENT exam: Present: normal exam - Neck Neck exam: Present: normal inspection - Respiratory Respiratory exam: Present: clear to auscultation bilaterally. Absent: rhonchi, wheezes - Cardiovascular Cardiovascular exam: Present: regular rate and rhythm - GI/Abdominal GI/Abdominal exam: Present: normal bowel sounds, other (protuberant). Absent: tenderness - Extremities Exam Extremities exam: Present: edema - Back Exam Back exam: Present: normal inspection - Neurological Exam Neurological exam: Present: alert, oriented X3 - Psychiatric Psychiatric exam: Present: normal affect, normal mood - Skin Skin exam: Present: warm, intact Results - Labs CBC & BMP: 05/05/17 07:11 05/06/17 02:50 Quality Measures - Stroke Symptom Onset Unknown: No
--- NOTE | 2017-05-06 16:00 | Pulmonology Progress Note ---
Pulmonary - PN: Subj Interval history: Patient being followed by Dr Ramírez, has new pleural effusion, started on diuresis. Today patient reports that he is acutely short of breath. He does not appear labored. His is present and states that he gets very anxious while in the hospital and will feel short of breath during that time. Denies any other new symptoms Exam (Progress Note) - Constitutional Vitals: Period Temp Pulse Resp BP Sys/Ivey Pulse Ox Last 24 Hr 96.1 F-98.2 F 55-111 16-28 124-153/64-83 90-98 General appearance: no acute distress - Head Head exam: Present: normal inspection - Respiratory Respiratory exam: Present: clear to auscultation bilaterally Results - Labs CBC & BMP: 05/05/17 07:11 05/06/17 02:50 Lab Results: I have reviewed the past 24 hour labs - Diagnostic Findings Procedure: CT - chest: image reviewed by me (reviewed images, does have a moderate right pleural effusion) Assessment and Plan (1) Pleural effusion Status: Acute Assessment and plan: Agree with continuing diuresis for now. Patient would be a challenging candidate for thoracentesis (although certainly can do it if he becomes more symptomatic). Will try a breathing treatment at this time and see if that helps. If dyspnea persists, may need to attempt thoracentesis. Continue to monitor Current Visit: Yes
--- NOTE | 2017-05-06 16:46 | Gastrointestinal Progress Note ---
Assessment and Plan (1) Dysphagia, pharyngoesophageal Status: Acute Assessment and plan: This patient may have reflux in association with his chronic inability to change his position and remain upright. There may be reflux induced by a hypomotility the GI tract as well. It is possible that esophageal stricturing may be occurring as a result of impingement on the esophagus by bridging osteophytes from his fairly severe ankylosing spondylitis as well. I will have the patient undergo a barium swallow to evaluate this tomorrow and will plan on doing upper endoscopy with potential dilation to follow on Monday morning. I will leave him off of his anticoagulation for at least one day prior to the endoscopy to occur on Monday. In the interim we will go ahead and place the patient on pantoprazole IV twice daily to see if this helps out with his appetite. Will also add some medications colonic flow and decrease his bloating by getting rid of the lactulose. Risks of the above endoscopy include but are not limited to: Bleeding, infection, perforation, cardiac and pulmonary compromise. These were discussed with the patient, his , and son and they agreed to proceed with upper endoscopy to occur on Monday. 05/06/17--the patient's barium swallow fails to show any impingement upon the esophagus, overall the esophagus was narrowed there was no evidence of cancer nor dominant stricture noted. He is remaining off of anticoagulation in order to proceed with upper endoscopy to occur on Monday. I anticipate being able to do his dilation at that time. He is somewhat less bloated after discontinuing the lactulose. Current Visit: Yes (2) Abnormal weight loss Status: Acute Assessment and plan: For the past year the patient states that his weight has dropped from 275 pounds to 229 pounds. He states that while some of this is volitional some of it is certainly not and he is only been able to eat about 10% of his trays while here. He does not have the sensation of reflux. His difficulty with swallowing is overcome by chewing his food extremely carefully and following bites with clear liquids in between. This only occurs with solids and is highly suspicious for a physical stricture versus cancer. Again a barium swallow is being arranged for tomorrow--not only will this look for physical stricture but also assess for spinal impingement and dysmotility at the same time. 05/06/17--No new complaints, awaiting upper endoscopy tomorrow. Current Visit: Yes (3) Macrocytic anemia Status: Acute Assessment and plan: May be related to B12 or folate deficiency versus alcohol intake versus myelodysplastic syndrome. His platelet level is normal I do not believe this is cirrhosis-related. Current Visit: Yes (4) Chronic constipation Status: Acute Assessment and plan: This patient does have chronic constipation possibly related to his intake of hydrocodone/acetaminophen as well as his low-dose fentanyl patch and poor mobility possibly poor hydration. She has been given lactulose which is probably adding to his bloating and I have discontinued this medication. His has had great success with enemas and magnesium citrate at home. I am going to see if we can get by using Linzess in addition to MiraLAX instead. Orders have been written we need to observe and see what effect he has with these medications. Certainly would like to stop the MiraLAX first if this ends up being a brisk response to the Linzess. 05/06/17--The patient just had a barium study done today, he is getting his MiraLAX, if he is not a had a bowel movement today at some point we might consider use of another dose of magnesium citrate tomorrow to help him flush out the barium. He has a history of chronic constipation. Current Visit: Yes (5) Screening for colorectal cancer Status: Acute Assessment and plan: This patient may benefit from routine risk colorectal cancer screening at some point in the future. He is concerned about being put to sleep. He does have some anemia and it would be reasonable to do this at some point. It does not sound like he has ever had colonoscopy, and my discussions with him. 05/06/17--We should consider doing this as an outpatient at some point in the future. As mentioned above. Current Visit: Yes Gastroenterology - PN: Subj Interval history: Barium swallow demonstrates tertiary contractions and a generalized narrowed esophagus but no areas of impingement or internal strictures or evidence of cancer. The patient is doing well with his clear liquid diet, he has no new complaints, he is somewhat confused and I was able to relate these findings to his . Exam (Progress Note) - Constitutional Vitals: Period Temp Pulse Resp BP Sys/Ivey Pulse Ox Last 24 Hr 96.1 F-98.2 F 76-111 16-28 124-153/64-83 88-98 General appearance: no acute distress - Head Head exam: Present: normocephalic - Eye Eye exam: Present: EOMI Pupils: Present: SAMSON - Neck Neck exam: Present: normal inspection - Respiratory Respiratory exam: Present: clear to auscultation bilaterally. Absent: stridor, wheezes - Cardiovascular Cardiovascular exam: Present: regular rate and rhythm - GI/Abdominal GI/Abdominal exam: Present: normal bowel sounds, distended, soft. Absent: guarding, tenderness, rebound - Extremities Exam Extremities exam: Absent: edema - Neurological Exam Neurological exam: Present: alert, altered (Easily confused) - Psychiatric Psychiatric exam: Present: normal affect, normal mood - Skin Skin exam: Present: warm Results - Labs CBC & BMP: 05/05/17 07:11 05/06/17 02:50
[2017-05-06] MEDS: CLORAZEPATE 3.75 MG TABLET PO SCH (20:35)
[2017-05-06] MEDS ORDERED: FUROSEMIDE 40 MG/4 ML VIAL ONE (23:56)
[2017-05-06] MEDS ORDERED: FUROSEMIDE 40 MG/4 ML VIAL IV ONE ×2 (23:57→23:58)
[2017-05-07 00:08] LABS: ABG Base Excess 10.6 MMOL/L (-2.5-2.5); ABG HCO3 44.8 MMOL/L (20-26); ABG Oxygen Saturation 44.8 % (95-100); ABG TCO2 48.9 MMOL/L (23-27); Allen Test Positive
[2017-05-07 00:11] LABS: ABG PCO2 133.4 MM HG (35-48); ABG PH 7.144 (7.35-7.45)
[2017-05-07 00:12] LABS: ABG PO2 29.8 MM HG (80-95)
[2017-05-07] MEDS ORDERED: SUCCINYLCHOLINE 200 MG/10 ML VIAL ONE (00:32)
[2017-05-07] MEDS ORDERED: MIDAZOLAM 10 MG/2 ML VIAL ONE (00:32)
[2017-05-07] MEDS ORDERED: PROPOFOL 1,000 MG/100 ML BOTTLE IV ONE (00:39)
--- NOTE | 2017-05-07 00:55 | Event Note ---
Called for rapid response on a patient with hypoxia and tachypnea. Patient was transferred to the CCU. Stat labs were drawn showing respiratory acidosis with a pH of 7.1 and a PCO2 of 130. Patient is being treated for pleural effusions and has been started on diuretic therapy. He is acutely decompensated and required transfer. I seen and examined the patient. His heart rate is in the 130s. His oxygen saturations are in the 70s and 80s. He is requiring a 100% nonrebreather and his work of breathing is significantly increased. He has consented to intubation and mechanical ventilation for correction of his respiratory acidosis. I have discussed the case with the patient's and the CCU. She also agrees. I anticipate this may be a difficult intubation given his ankylosing spondylitis and abnormal curvature of the neck.
--- NOTE | 2017-05-07 00:56 | Event Note ---
Intubation procedure note - Intubation Sedative: Versed Mg given sedative: 6 mg Paralytic: Succinylcholine Mg given paralytic: 100 mg Laryngoscope: [place] scope ET Tube Size: 7.5 Tube Secured Depth (cm): 23 Tube Secured Location: Teeth Tube Placement Confirmation: visualized tube passing through cords, equal breath sounds bilaterally, no breath sounds over epigastrium, confirmation by capnometry, confirmation detector color change Patient tolerated procedure intubation: well, no complications Intubation Complications: Additional Comments: Stat chest x-ray was performed immediately after the procedure showing adequate placement of the endotracheal tube.
[2017-05-07] MEDS: PHENYLEPHRINE DRIP 40 MG/250 ML PREMIX IV SCH ×2 (01:00→12:11)
[2017-05-07] MEDS ORDERED: PHENYLEPHRINE DRIP 40 MG/250 ML PREMIX IV ONE (01:23)
[2017-05-07] MEDS: PROPOFOL 1,000 MG/100 ML BOTTLE IV SCH ×5 (01:30→20:30)
[2017-05-07] MEDS ORDERED: ALBUMIN 25% 12.5 GM in PREMIX 1 EACH IV ONE (01:30)
[2017-05-07 01:39] LABS: Basophils % 0.4 % (0.0-0.8); Eosinophils # 0.2 10*3/uL (0.0-0.87); Eosinophils % 2.3 % (0.00-10.9); Hematocrit 36.9 VOL% (42.0-52.0); Hemoglobin 11.8 GM/DL (14.0-18.0); Immature Granulocytes % 1.5 %; Immature Granulocytes Absolute 0.15 #; Lymphocytes # 0.8 10*3/uL (1.4-4.0); Lymphocytes % 7.7 % (21.2-54.2); Mean Corpuscular Hemoglobin 32 PG (27-34); Mean Platelet Volume 11.6 FL (9.6-12.0); Monocytes # 0.8 10*3/uL (0.11-0.8); Monocytes % 7.5 % (1.7-12.7); Neutrophils # 8.1 10*3/uL (1.4-7.4); Neutrophils % 80.6 % (38.7-73.9); Platelet Count 248 T/CUMM (130-400); Red Blood Count 3.69 MC/CUMM (3.8-5.5); Red Cell Distribution Width 13.5 % (9.3-17.3)
[2017-05-07 01:43] LABS: ABG Base Excess 9.3 MMOL/L (-2.5-2.5); ABG HCO3 33.2 MMOL/L (20-26); ABG Oxygen Saturation 99.3 % (95-100); ABG PCO2 42.7 MM HG (35-48); ABG PH 7.509 (7.35-7.45); ABG PO2 264.3 MM HG (80-95); ABG TCO2 34.5 MMOL/L (23-27); Allen Test Positive; Pt O2 Delivery Device Ventilator
[2017-05-07 02:00] LABS: Calcium 8.4 MG/DL (8.5-10.1); Osmolality,Calculated 273.1 MOS/KG (273-304); Potassium 4.5 MMOL/L (3.5-5.1)
[2017-05-07 02:12] LABS: Calcium 8.6 MG/DL (8.5-10.1); Osmolality,Calculated 273.1 MOS/KG (273-304); Potassium 4.5 MMOL/L (3.5-5.1)
[2017-05-07] MEDS: LEVOTHYROXINE 100 MCG TABLET PO SCH (06:36)
[2017-05-07] MEDS: ALBUTEROL/IPRATROPIUM 3 ML NEB RESP TX SCH ×3 (07:18→19:45)
[2017-05-07] MEDS: LINACLOTIDE 145 MCG CAPSULE PO SCH (07:46)
[2017-05-07] MEDS: THEOPHYLLINE ER 300 MG TABLET PO SCH ×2 (07:49→17:20)
--- NOTE | 2017-05-07 08:05 | Pulmonology Progress Note ---
Pulmonary - PN: Subj Interval history: Patient found to be in respiratory distress overnight with severe respiratory acidosis. Was transferred to ICU and intubated. Exam (Progress Note) - Constitutional Vitals: Period Temp Pulse Resp BP Sys/Ivey Pulse Ox Last 24 Hr 97.4 F-99.1 F 78-142 12-34 53-156/41-105 34-100 Exam: intubated and sedated - Respiratory Respiratory exam: Present: decreased breath sounds. Absent: accessory muscle use, wheezes - Cardiovascular Cardiovascular exam: Present: tachycardia - GI/Abdominal GI/Abdominal exam: Present: normal bowel sounds Results - Labs CBC & BMP: 05/07/17 01:11 05/07/17 01:11 Lab Results: I have reviewed the past 24 hour labs - Diagnostic Findings Procedure: Chest x-ray: image reviewed by me (reviewed images, continues to have moderate right pleural effusion) Assessment and Plan (1) Pleural effusion Status: Acute Assessment and plan: Probable IR thoracentesis tomorrow. Dr Ramírez to assume care tonight Current Visit: Yes (2) Respiratory failure Status: Acute Assessment and plan: Patient with acute respiratory acidosis last night. Unclear the immeadiate cause. No leukocytosis, fever or infiltrate to suggest a pneumonia. Could be secondary to failure from the pleural effusion. will likely need IR to drain Current Visit: Yes
[2017-05-07] MEDS: fentaNYL 12 MCG/HR PATCH TRANSDERM SCH (08:23)
[2017-05-07] MEDS: BISOPROLOL 5 MG TABLET PO SCH (08:25)
[2017-05-07] MEDS: LIDOCAINE 5% PATCH TRANSDERM SCH (08:33)
--- NOTE | 2017-05-07 09:02 | XRay Report ---
XR chest 1V portable Indication: Shortness of breath. Chest one view: Comparison 2 days earlier shows stable pacemaker device, cardiomegaly, vertebroplasty cement, with continued's bilateral pleural effusions and significant diffuse interstitial coarsening of the lungs. There is small amount of barium in the left upper quadrant, presumably splenic flexure. Impression: No significant change. PROCEDURE INTERPRETED AT [facility] DEPARTMENT OF RADIOLOGY Final Report Signed by: Brennan Quiles M.D.
[2017-05-07] MEDS: miSOPROStol 200 MCG TABLET PO SCH (09:11)
[2017-05-07] MEDS: metOLazone 5 MG TABLET PO SCH (09:27)
[2017-05-07] MEDS: MULTIVITAMIN (CENTRUM) TABLET PO SCH (09:27)
[2017-05-07] MEDS: POLYETHYLENE GLYCOL POWDER 17 GM PACK PO SCH ×2 (09:28→20:27)
[2017-05-07] MEDS: PANTOPRAZOLE 40 MG TABLET PO SCH (09:28)
[2017-05-07] MEDS: THIAMINE 100 MG TABLET PO SCH (09:28)
[2017-05-07] MEDS: FOLIC ACID 1 MG TABLET PO SCH (09:29)
[2017-05-07] MEDS: POTASSIUM CHLORIDE 20 MEQ TABLET PO SCH (09:30)
[2017-05-07] MEDS: IMIPRAMINE 25 MG TABLET PO SCH (09:31)
[2017-05-07] MEDS: LEVOFLOXACIN INJ 500 MG in PREMIX 1 EACH IV SCH (09:31)
[2017-05-07] MEDS: ASCORBIC ACID 500 MG TABLET PO SCH (09:38)
--- NOTE | 2017-05-07 11:00 | Gastrointestinal Progress Note ---
Assessment and Plan (1) Dysphagia, pharyngoesophageal Status: Acute Assessment and plan: This patient may have reflux in association with his chronic inability to change his position and remain upright. There may be reflux induced by a hypomotility the GI tract as well. It is possible that esophageal stricturing may be occurring as a result of impingement on the esophagus by bridging osteophytes from his fairly severe ankylosing spondylitis as well. I will have the patient undergo a barium swallow to evaluate this tomorrow and will plan on doing upper endoscopy with potential dilation to follow on Monday morning. I will leave him off of his anticoagulation for at least one day prior to the endoscopy to occur on Monday. In the interim we will go ahead and place the patient on pantoprazole IV twice daily to see if this helps out with his appetite. Will also add some medications colonic flow and decrease his bloating by getting rid of the lactulose. Risks of the above endoscopy include but are not limited to: Bleeding, infection, perforation, cardiac and pulmonary compromise. These were discussed with the patient, his , and son and they agreed to proceed with upper endoscopy to occur on Monday. 05/06/17--the patient's barium swallow fails to show any impingement upon the esophagus, overall the esophagus was narrowed there was no evidence of cancer nor dominant stricture noted. He is remaining off of anticoagulation in order to proceed with upper endoscopy to occur on Monday. I anticipate being able to do his dilation at that time. He is somewhat less bloated after discontinuing the lactulose. 05/07/17--We will check the patient's ammonia level since he was previously on lactulose and this has now been discontinued using MiraLAX and in its lieu. Current Visit: Yes (2) Abnormal weight loss Status: Acute Assessment and plan: For the past year the patient states that his weight has dropped from 275 pounds to 229 pounds. He states that while some of this is volitional some of it is certainly not and he is only been able to eat about 10% of his trays while here. He does not have the sensation of reflux. His difficulty with swallowing is overcome by chewing his food extremely carefully and following bites with clear liquids in between. This only occurs with solids and is highly suspicious for a physical stricture versus cancer. Again a barium swallow is being arranged for tomorrow--not only will this look for physical stricture but also assess for spinal impingement and dysmotility at the same time. 05/06/17--No new complaints, awaiting upper endoscopy Monday. 05/07/17--we will arrange for upper endoscopy Monday, tomorrow in order to look for evidence of the cause for his weight loss and consider doing dilation at the same time Current Visit: Yes (3) Macrocytic anemia Status: Acute Assessment and plan: May be related to B12 or folate deficiency versus alcohol intake versus myelodysplastic syndrome. His platelet level is normal I do not believe this is cirrhosis-related. 05/07/17--B12 and folate levels were completely normal. This leaves myelodysplastic syndrome versus cirrhosis is potential causes for the patient's macrocytic chronic anemia Current Visit: Yes (4) Chronic constipation Status: Acute Assessment and plan: This patient does have chronic constipation possibly related to his intake of hydrocodone/acetaminophen as well as his low-dose fentanyl patch and poor mobility possibly poor hydration. She has been given lactulose which is probably adding to his bloating and I have discontinued this medication. His has had great success with enemas and magnesium citrate at home. I am going to see if we can get by using Linzess in addition to MiraLAX instead. Orders have been written we need to observe and see what effect he has with these medications. Certainly would like to stop the MiraLAX first if this ends up being a brisk response to the Linzess. 05/06/17--The patient just had a barium study done today, he is getting his MiraLAX, if he is not a had a bowel movement today at some point we might consider use of another dose of magnesium citrate tomorrow to help him flush out the barium. He has a history of chronic constipation. 05/07/17--observing for present time. Current Visit: Yes (5) Screening for colorectal cancer Status: Acute Assessment and plan: This patient may benefit from routine risk colorectal cancer screening at some point in the future. He is concerned about being put to sleep. He does have some anemia and it would be reasonable to do this at some point. It does not sound like he has ever had colonoscopy, and my discussions with him. 05/06/17--We should consider doing this as an outpatient at some point in the future. As mentioned above. Current Visit: Yes Gastroenterology - PN: Subj Interval history: Patient had a barium swallow which showed poor stripping and tertiary contractions all consistent with reflux yesterday. He has a underlying history of dysphagia and were due to do a upper endoscopy on him tomorrow. He is now on the ventilator after having an episode of acute desaturation of unclear cause. Likely has decreased respiratory excursion because of his ankylosing spondylitis. We will plan on doing the endoscopy at the bedside since he is at a fair amount of anesthesia risk provided his blood pressure is adequate. He is having significant dysphagia and would like to be able to do some dilation to help out with this, given his extreme weight loss. Exam (Progress Note) - Constitutional Vitals: Period Temp Pulse Resp BP Sys/Ivey Pulse Ox Last 24 Hr 97.4 F-99.1 F 78-142 12-34 53-156/41-105 34-100 General appearance: no acute distress - Eye Eye exam: Present: EOMI - ENT ENT exam: Present: other (Patient is intubated) - Neck Neck exam: Present: normal inspection - Respiratory Respiratory exam: Present: clear to auscultation bilaterally - Cardiovascular Cardiovascular exam: Present: regular rate and rhythm - GI/Abdominal GI/Abdominal exam: Present: distended, soft. Absent: guarding, tenderness, rebound - Back Exam Back exam: Present: normal inspection - Neurological Exam Neurological exam: Present: alert, oriented X3, CN II-XII intact. Absent: motor sensory deficit - Psychiatric Psychiatric exam: Present: normal affect, normal mood - Skin Skin exam: Present: warm Results - Labs CBC & BMP: 05/07/17 01:11 05/07/17 01:11
--- NOTE | 2017-05-07 16:31 | Hospitalist Progress Note ---
Hospitalist: Subjective Interval history: 66 year old male who is a [place] resident, with past medical history significant for hypertension, permanent pacemaker, anxiety, depression, thyroid disorder, diabetes, ankylosing spondylitis was admitted with low O2 sats and shortness of breath and altered mental status. He developed resp distress on the floor, that required intubation & mech ventilation with transfer to ICU. Exam - Constitutional Vitals: Period Temp Pulse Resp BP Sys/Ivey Pulse Ox Last 24 Hr 97.4 F-99.1 F 91-142 12-34 53-156/41-105 34-100 Exam: General: No Acute Distress HEENT: Normocephalic, atraumatic Neck: Supple, No JVD Chest: Clear to auscultation B/L CV: S1 + S2 audible Abd: distended, soft Ext: + edema ] ] Results - Labs CBC & BMP: 05/07/17 01:11 05/07/17 01:11 - Impressions Assessment and Plan Acute Hypoxemic and Hypercapneic Respiratory failure Status: Acute Assessment and plan: Patient developed acute respiratory acidosis and resp failure on floor that required intubation & mech ventilation Current Visit: Yes Pleural effusion Status: Acute Assessment and plan: May need Thoracentesis Current Visit: Yes Decubitus ulcer Status: Acute Assessment and plan: Dr. Odell consulted Current Visit: No Qualifiers: Pressure ulcer location: contiguous region involving back and buttock Pressure ulcer stage: stage 2 E Coli UTI, POA Status: Acute Assessment and plan: Continue IV Fortaz Current Visit: Yes Dysphagia, pharyngoesophageal Status: Acute Assessment and plan: Appreciate GI following Current Visit: Yes Ankylosing spondylitis Status: Chronic Current Visit: Yes Quality Measures - Stroke Symptom Onset Unknown: No
[2017-05-07] MEDS: CLORAZEPATE 3.75 MG TABLET PO SCH (20:27)
[2017-05-08] MEDS: PROPOFOL 1,000 MG/100 ML BOTTLE IV SCH ×5 (00:23→23:30)
[2017-05-08] MEDS: ALBUTEROL/IPRATROPIUM 3 ML NEB RESP TX SCH ×4 (01:16→20:28)
[2017-05-08 06:24] LABS: Calcium 8.7 MG/DL (8.5-10.1); Osmolality,Calculated 272.7 MOS/KG (273-304); Potassium 3.4 MMOL/L (3.5-5.1)
[2017-05-08] MEDS: LEVOTHYROXINE 100 MCG TABLET PO SCH (06:31)
--- NOTE | 2017-05-08 07:56 | XRay Report ---
Single view the chest. Indication: Shortness of breath. Comparison: May 07, 2017. The heart is normal in size. Cardiac hardware is in satisfactory position. Endotracheal tube is in satisfactory position. Nasogastric tube has been placed. Its distal tip projects off the field of the film, beyond the GE junction. The pulmonary vasculature is prominent. There are bilateral alveolar and interstitial infiltrates and pleural effusions. Impression: No significant interval change. Severe pleural and parenchymal abnormality bilaterally. PROCEDURE INTERPRETED AT [facility] DEPARTMENT OF RADIOLOGY Final Report Signed by: Dr. Nataliia Barth
--- NOTE | 2017-05-08 08:14 | EKG Report ---
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
[2017-05-08] MEDS: MULTIVITAMIN (CENTRUM) TABLET PO SCH (08:24)
[2017-05-08] MEDS: PANTOPRAZOLE 40 MG TABLET PO SCH (08:24)
[2017-05-08] MEDS: FOLIC ACID 1 MG TABLET PO SCH (08:25)
[2017-05-08] MEDS: metOLazone 5 MG TABLET PO SCH (08:25)
[2017-05-08] MEDS: miSOPROStol 200 MCG TABLET PO SCH (08:25)
[2017-05-08] MEDS: ASCORBIC ACID 500 MG TABLET PO SCH (08:25)
[2017-05-08] MEDS: THIAMINE 100 MG TABLET PO SCH (08:25)
[2017-05-08] MEDS: LINACLOTIDE 145 MCG CAPSULE PO SCH (08:25)
[2017-05-08] MEDS: LIDOCAINE 5% PATCH TRANSDERM SCH (08:32)
[2017-05-08] MEDS: POLYETHYLENE GLYCOL POWDER 17 GM PACK PO SCH ×2 (08:39→23:29)
[2017-05-08] MEDS: BISOPROLOL 5 MG TABLET PO SCH (08:42)
[2017-05-08 08:59] LABS: Basophils % 0.4 % (0.0-0.8); Eosinophils # 0.1 10*3/uL (0.0-0.87); Eosinophils % 1.3 % (0.00-10.9); Hematocrit 31.9 VOL% (42.0-52.0); Hemoglobin 10.8 GM/DL (14.0-18.0); Immature Granulocytes % 0.8 %; Immature Granulocytes Absolute 0.07 #; Lymphocytes # 0.6 10*3/uL (1.4-4.0); Mean Corpuscular HGB Conc 33.9 GM/DL (32-36); Mean Corpuscular Hemoglobin 33 PG (27-34); Mean Corpuscular Volume 97.6 FL (87-102); Mean Platelet Volume 11.3 FL (9.6-12.0); Monocytes # 1.4 10*3/uL (0.11-0.8); Monocytes % 16.1 % (1.7-12.7); Neutrophils # 6.4 10*3/uL (1.4-7.4); Neutrophils % 74.4 % (38.7-73.9); Platelet Count 174 T/CUMM (130-400); Red Blood Count 3.27 MC/CUMM (3.8-5.5); Red Cell Distribution Width 13.9 % (9.3-17.3); White Blood Count 8.6 T/CUMM (4-12)
[2017-05-08 09:18] LABS: Band Neutrophils 1 % (0-10); Eosinophils 1 % (0-10); Giant Platelets Few; Hypochromasia 1+; Lymphocytes 9 % (20-55); Platelet Estimate Normal; Segmented Neutrophils 81 % (50-85); Total Cells Counted 100
[2017-05-08 09:19] LABS: Ovalocytes Slight
[2017-05-08 09:25] LABS: Calcium 8.5 MG/DL (8.5-10.1); Magnesium 1.9 MG/DL (1.8-2.4); Osmolality,Calculated 270.8 MOS/KG (273-304)
[2017-05-08] MEDS ORDERED: POTASSIUM CHLORIDE RIDER 10 MEQ in PREMIX 1 EACH IV PRN ×2 (10:00→10:09)
[2017-05-08] MEDS ORDERED: AMINOPHYLLINE 500 MG in SODIUM CHLORIDE 0.9% 480 ML IV SCH (10:00)
[2017-05-08] MEDS: LEVOFLOXACIN INJ 500 MG in PREMIX 1 EACH IV SCH (10:46)
--- NOTE | 2017-05-08 11:03 | Pulmonology Progress Note ---
Pulmonary - PN: Subj Interval history: Mr. Fischer is a 66-year-old white male who we saw in initial pulmonary consultation on 05/04/2017. At that time, our impressions were: #1: Acute altered mental status most likely secondary to #2 but consider other causes #2: Acute urinary tract infection #3: Ankylosing spondylitis with probable spinal stenosis. Anatomy and pain limited mobility. #4: Peripheral sensory neuropathy. His symptoms have gradually worsened over time. #5: Chronic venous stasis of the lower extremities. #6: Vitamin B deficiency. #7: Past history of tobacco abuse #8: COPD/asthma #9: Past history of high blood pressure #10: Hypothyroidism #11: Bilateral pleural effusions of unknown etiology #12: Dual-chamber cardiac pacemaker #13: History of marijuana use #14: History of compression fractures with chronic pain. Now under the care of Dr. Patel. #15: See past history 05/05/2017. Patient was seen today along with his . The patient is awake, alert, and oriented this morning. His theophylline was discontinued per the 's request yesterday. Of note, his theophylline level was 7.9. He has been seen in pain management consultation with Dr. Patel. His note has been reviewed. We appreciate his assistance. He will be out of town for the next few days, but upon his return we will begin tapering the patient's pain medications as per his note. Patient's lower extremities continue to be edematous. We will give Mr. Keith a one-time dose of IV Lasix. We will start Zaroxolyn 5 mg p.o. daily and KCl 20 mEq daily. Daily BMP/magnesium has been ordered. The patient's echocardiogram this admission as read by Dr. Vega showed an estimated EF of 60%, approximately 1+ mitral and aortic regurgitation , 1-2+ tricuspid regurgitation with a right ventricular systolic pressure of 60 mmHg plus the right atrial pressure suggesting severe pulmonary hypertension. This is a significant change from the echocardiogram done 04/12/[address] Nova which showed an EF estimated at 60%, grade 1 diastolic dysfunction, normal to mildly elevated filling pressures, mild aortic valve regurgitation, moderate ventricular hypertrophy with no demonstrable increase in right-sided pressure, and tricuspid regurgitation velocity suggesting a right ventricular systolic pressure of 23 mmHg plus the right atrial pressure. On chest x-ray today, the pleural effusion is improved. This patient has great difficulty laying flat given his ankylosing spondylitis, so we will begin diuresing him with his Zaroxolyn and see if his pleural effusion will resolve rather than proceed with CT PE protocol at this time. We will repeat a chest x-ray on Monday. Doppler venograms showed no evidence of dizziness thrombophlebitis. Abdominal ultrasound showed no ascites. Medications have been reviewed. Labs have been reviewed. White count is 5900 with a normal differential; H&H 10.7/33.6; platelet count 172,000; creatinine 0.40, BUN 8, electrolytes are normal; magnesium 2.5 Microbiology has been reviewed. Urine culture has grown E. coli. He is on Fortaz and Levaquin. Urine drug screen was positive for benzodiazepines and cannabinoids 05/08/2017 during the weekend the patient deteriorated. He developed a severe acidosis and a markedly elevated PCO2 and required movement to CCU along with intubation mechanical ventilation. He is still on the ventilator.His chest x- ray shows bibasilar infiltrates and some faint infiltrates in the right upper lung. Still has a small right pleural effusion. This is unexpected and I have to wonder about aspiration. We will plan to evaluate with fiberoptic bronchoscopy in the morning. His only positive cultures E. coli from his urine. ABGs have been ordered but are pending. Potassium is low at 3.0 and the patient will be placed on protocol. Natruretic peptide is 92. H&H is 10.8/ 31.9. White count is 8674.4 segs 7 lymphs and 16.1 monocytes. EKG shows no acute changes. At this point I am not entirely clear why the patient deteriorated so rapidly. Exam (Progress Note) - Constitutional Vitals: Period Temp Pulse Resp BP Sys/Ivey Pulse Ox Last 24 Hr 5 F-98.0 F 83-105 18-28 118-166/66-83 88-99 Exam: Neurologic. Sedated. Staff says he cooperates when he is awake Chest. Loose large airway congestion Heart no gallop Abdomen is obese, but nontender and nondistended; bowel sounds are positive 4 Extremities with nothing to suggest acute deep venous thrombophlebitis; bilateral pedal and pretibial edema; chronic venous stasis changes Neck. Also normal curvature secondary to ankylosing spondylitis. Lymphatics. No submandibular cervical supraclavicular or epitrochlear adenopathy. The remainder the exam is noncontributory Plan. 1. Fiberoptic bronchoscopy in the morning 2. Mechanical ventilation weaning protocol and physical therapy protocol 3. See Exam (Progress Note) - Constitutional Vitals: Period Temp Pulse Resp BP Sys/Ivey Pulse Ox Last 24 Hr 97.4 F-98.4 F 91-117 10-109 74-129/48-83 93-100 Results - Labs CBC & BMP: 05/08/17 08:54 05/08/17 08:54
[2017-05-08] MEDS: AMINOPHYLLINE 500 MG in SODIUM CHLORIDE 0.9% 480 ML IV SCH (11:12)
[2017-05-08] MEDS: POTASSIUM CHLORIDE RIDER 10 MEQ in PREMIX 1 EACH IV PRN ×5 (12:25→16:30)
[2017-05-08] MEDS: IMIPRAMINE 25 MG TABLET PO SCH (12:43)
--- NOTE | 2017-05-08 14:24 | Event Note ---
Above noted. I will be available and continue to follow as needed.
[2017-05-08] MEDS: PHENYLEPHRINE DRIP 40 MG/250 ML PREMIX IV SCH (14:43)
--- NOTE | 2017-05-08 14:53 | Hospitalist Progress Note ---
Hospitalist: Subjective Interval history: 66 year old male who is a [place] resident, with past medical history significant for hypertension, permanent pacemaker, anxiety, depression, diabetes, ankylosing spondylitis was admitted with low O2 sats and shortness of breath and altered mental status. He developed resp distress on the floor, that required intubation & mech ventilation with transfer to ICU. Exam - Constitutional Vitals: Period Temp Pulse Resp BP Sys/Ivey Pulse Ox Last 24 Hr 97.4 F-98.4 F 93-117 10-109 78-129/52-83 93-100 Exam: General: No Acute Distress HEENT: Normocephalic, atraumatic Neck: Supple, No JVD Chest: Clear to auscultation B/L CV: S1 + S2 audible Abd: obese, soft Ext: + edema Results - Labs CBC & BMP: 05/08/17 08:54 05/08/17 08:54 - Impressions Assessment and Plan Acute Hypoxemic and Hypercapneic Respiratory failure Status: Acute Assessment and plan: Patient developed acute respiratory acidosis and resp failure on floor that required intubation & mech ventilation Current Visit: Yes Pleural effusion Status: Acute Assessment and plan: May need Thoracentesis Current Visit: Yes Decubitus ulcer Status: Acute Assessment and plan: Dr. Odell consulted Current Visit: No Qualifiers: Pressure ulcer location: contiguous region involving back and buttock Pressure ulcer stage: stage 2 E Coli UTI, POA Status: Acute Assessment and plan: Continue IV Fortaz Current Visit: Yes Dysphagia, pharyngoesophageal Status: Acute Assessment and plan: Appreciate GI following Current Visit: Yes Ankylosing spondylitis with spinal stenosis, chronic pain syndrome Status: Chronic Current Visit: Yes He is on several narcotics Metabolic encephalopathy due to UTI Status: Acute Current Visit: Yes Chronic hypothyroidism Status: Acute Current Visit: Yes Chronic asthma and COPD Status: Acute Current Visit: Yes Severe pulmonary hypertension Status: Acute Current Visit: Yes Hypokalemia Status: Acute Current Visit: Yes DVT prophylaxis with Lovenox Quality Measures - Stroke Symptom Onset Unknown: No
--- NOTE | 2017-05-08 15:19 | Operative Note ---
Date of procedure: 05/08/17 Pre-op diagnosis: Mild anemia, 31.9%, dysphagia, reflux, regurgitation Post-op diagnosis: other (No gross evidence of dominant stricture however the patient's upper esophagus did have a slight narrowing that was dilated to 57 [place] by single pass Savary dilator with replacement of NG tube at the end of the case endoscopically. There was a sizable hiatal hernia noted and LA class B esophagitis. Stomach was J-shaped and had a diffuse gastritis noted, biopsies were taken, a dilated duodenum was also noted with biopsies taken here as well for sprue) Procedure: PROCEDURE: Esophagogastroduodenoscopy (EGD) with cold biopsy for pathology , single pass Savary dilation to 57 [place], replacement of NG tube at the end of the case with endoscopic confirmation. REFERRING PHYSICIAN: Bala Ramírez MD INDICATIONS: Dysphagia in a patient with ankylosing spondylitis but no dominant structures on barium swallow recently, tertiary contractions noted. Recent vomiting with possible aspiration and hypoxia. Currently on the ventilator and with poor lung mechanics suspect this will be safest for the sedation needed during upper endoscopy. The prior H&P was reviewed and interrim changes are as noted: No change from GI consultation 2 days ago ENDOSCOPIST: Khoa Reddy MD ENDOSCOPE: Olympus Video 100 System upper endoscope ASA CLASS: 4 EXAM: CV: regular rate and rhythm respiratory: Clear without wheezes abdominal: active bowel sounds MEDICATION: Per nursing anesthesia protocol, see their notes PROCEDURE: After discussion of the potential risks and benefits of upper endoscopy, the informed consent was obtained. The patient was then placed in the left lateral decubitus position where sedation was achieved as noted above. Esophageal intubation was performed without difficulty, and the endoscope was advanced through the esophagus, stomach and duodenum. A slow withdrawal was then performed with retroflexion in the stomach for careful inspection of the incisura angularis, fundus and cardia. The scope was then returned to a neutral position and withdrawn through the esophagus. The patient tolerated the procedure well and without complication. BIOPSIES: Gastric antrum/body PHOTOGRAPHS: Obtained FINDINGS: Hypopharynx and Larynx: Endotracheal tube is noted in the NG tube was removed at the beginning of the case then replaced at the end of the case. Esohagoscopy Upper and middle thirds: Localized narrowing at the upper esophagus, this area was dilated at the end of the case using a 57 [place] Savary with small amount of bleeding noted postprocedure but no gross tears. Lower third tortuous but otherwise normal with some retained fluid, LA class B esophagitis noted Esophogastric junctions: No gross evidence of stricturing noted here, dilated to 57 [place] by single pass Savary dilator with moderate force required and slight amount of heme. Gastroscopy: Cardia/Fundus: There appear to be a 5 cm sliding-type hiatal hernia and relatively J-shaped stomach with mild gastritis and some retained fluid here Body: Moderate nonerosive gastritis noted throughout, biopsies obtained, J-shaped stomach, slightly dilated, biopsied Antrum and pylorus moderate nonerosive gastritis, somewhat patulous pylorus noted, biopsied for Helicobacter pylori, wire passed to this area to facilitate Savary dilation as noted above. NG tube replaced down the nose at the end of the case into the stomach with endoscopic guidance/confirmation. Duodenoscopy: Bulb mild erythema and a dilated duodenum, biopsied for sprue Second and third portions: Dilated duodenum otherwise mildly erythematous appearing, biopsied for sprue IMPRESSION: No gross evidence of dominant stricture however the patient's upper esophagus did have a slight narrowing that was dilated to 57 [place] by single pass Savary dilator with replacement of NG tube at the end of the case endoscopically. There was a sizable hiatal hernia noted and LA class B esophagitis. Stomach was J-shaped and had a diffuse gastritis noted, biopsies were taken, a dilated duodenum was also noted with biopsies taken here as well for sprue RECOMMENDATIONS: Follow up for biopsy results in 1-2 weeks by phone [phone] Continue anti-gastroesophageal reflux measures (avoid carbonated and acidic beverages, avoid eating within 2 hours of bedtime, avoid tight fitting clothing , and elevate the front bed posts 6 inches prior to sleeping. Continue Protonix 40 mg IV twice daily We will restart the erythromycin Via NG tube in the near future to help with tube feed residuals. There is really not a candidate for Reglan due to his Parkinson's. Observation of tube feed residuals once these are started. Will hold on tube feed initiation until after the bronchoscopy completed tomorrow. Khoa Reddy MD COPY TO: Bala Ramírez MD Anesthesia: MAC Surgeon / Physician: Khoa Reddy Estimated blood loss: minimal Specimens: other (Gastric antrum/body and duodenum) Condition: stable Disposition: ICU Results - Labs CBC & BMP: 05/08/17 08:54 05/08/17 15:22 Discharge Plan - Discharge Medications No Action Imipramine HCl 25 mg PO DAILY Levothyroxine Tab [Synthroid Tab] 100 mcg PO DAILY Folic Acid Tab 1 mg PO DAILY tablet Lidocaine 5% Patch [Lidoderm 5% Patch] 1 patch TRANSDERM DAILY patch miSOPROStol [Cytotec] 200 mcg PO DAILY tablet Thiamine Tab [Vitamin B1 Tab] 100 mg PO DAILY tablet Bisacodyl Tab [Dulcolax Tab] 5 mg PO DAILY PRN PRN Reason: Constipation Ascorbic Acid Tab [Vitamin C Tab] 500 mg PO DAILY Lactulose Liquid [Chronulac] 30 ml PO BID HYDROcodone/ACETAMIN 5-325 [[place] 5-325] 1 tablet PO Q8H PRN #90 tablet PRN Reason: Pain Moderate (4-7) Skin Healing Oint (Aquaphor) [Aquaphor] 1 applic TOP PRN PRN applic PRN Reason: Dry Skin Clorazepate [Tranxene] 3.75 mg PO BEDTIME fentaNYL 12 MCG/HR PATCH [Duragesic 12 Patch] 1 patch TRANSDERM Q3DAY Theophylline ER Tab 300 mg PO Q12H Bisoprolol [Zebeta] 5 mg PO DAILY tablet Multivitamin (Centrum) [Centrum Tab] 1 tablet PO DAILY tablet Albuterol Sulfate [Albuterol Neb] 2.5 mg RESP TX TID - Follow Up or Referral - Forms/Instructions
--- NOTE | 2017-05-08 15:24 | Gastrointestinal Progress Note ---
Assessment and Plan (1) Dysphagia, pharyngoesophageal Status: Acute Assessment and plan: This patient may have reflux in association with his chronic inability to change his position and remain upright. There may be reflux induced by a hypomotility the GI tract as well. It is possible that esophageal stricturing may be occurring as a result of impingement on the esophagus by bridging osteophytes from his fairly severe ankylosing spondylitis as well. I will have the patient undergo a barium swallow to evaluate this tomorrow and will plan on doing upper endoscopy with potential dilation to follow on Monday morning. I will leave him off of his anticoagulation for at least one day prior to the endoscopy to occur on Monday. In the interim we will go ahead and place the patient on pantoprazole IV twice daily to see if this helps out with his appetite. Will also add some medications colonic flow and decrease his bloating by getting rid of the lactulose. Risks of the above endoscopy include but are not limited to: Bleeding, infection, perforation, cardiac and pulmonary compromise. These were discussed with the patient, his , and son and they agreed to proceed with upper endoscopy to occur on Monday. 05/06/17--the patient's barium swallow fails to show any impingement upon the esophagus, overall the esophagus was narrowed there was no evidence of cancer nor dominant stricture noted. He is remaining off of anticoagulation in order to proceed with upper endoscopy to occur on Monday. I anticipate being able to do his dilation at that time. He is somewhat less bloated after discontinuing the lactulose. 05/07/17--We will check the patient's ammonia level since he was previously on lactulose and this has now been discontinued using MiraLAX and in its lieu. 05/08/17--findings at upper endoscopy today were as follows: No gross evidence of dominant stricture however the patient's upper esophagus did have a slight narrowing that was dilated to 57 [place] by single pass Savary dilator with replacement of NG tube at the end of the case endoscopically. There was a sizable hiatal hernia noted and LA class B esophagitis. Stomach was J-shaped and had a diffuse gastritis noted, biopsies were taken, a dilated duodenum was also noted with biopsies taken here as well for sprue. Suggest holding off on restarting tube feeds until after the bronchoscopy is completed tomorrow. Will initiate erythromycin via the NG tube now that this is confirmed in the stomach endoscopically. Current Visit: Yes (2) Abnormal weight loss Status: Acute Assessment and plan: For the past year the patient states that his weight has dropped from 275 pounds to 229 pounds. He states that while some of this is volitional some of it is certainly not and he is only been able to eat about 10% of his trays while here. He does not have the sensation of reflux. His difficulty with swallowing is overcome by chewing his food extremely carefully and following bites with clear liquids in between. This only occurs with solids and is highly suspicious for a physical stricture versus cancer. Again a barium swallow is being arranged for tomorrow--not only will this look for physical stricture but also assess for spinal impingement and dysmotility at the same time. 05/06/17--No new complaints, awaiting upper endoscopy Monday. 05/07/17--we will arrange for upper endoscopy Monday, tomorrow in order to look for evidence of the cause for his weight loss and consider doing dilation at the same time 05/08/17--We Will see how he is able to swallow later after he is off the ventilator. The patient has no gross evidence of an obstruction but does have dilation of the duodenum possibly pointing to a GI hypomotility. Current Visit: Yes (3) Macrocytic anemia Status: Acute Assessment and plan: May be related to B12 or folate deficiency versus alcohol intake versus myelodysplastic syndrome. His platelet level is normal I do not believe this is cirrhosis-related. 05/07/17--B12 and folate levels were completely normal. This leaves myelodysplastic syndrome versus cirrhosis is potential causes for the patient's macrocytic chronic anemia 05/08/17--as noted above Current Visit: Yes (4) Chronic constipation Status: Acute Assessment and plan: This patient does have chronic constipation possibly related to his intake of hydrocodone/acetaminophen as well as his low-dose fentanyl patch and poor mobility possibly poor hydration. She has been given lactulose which is probably adding to his bloating and I have discontinued this medication. His has had great success with enemas and magnesium citrate at home. I am going to see if we can get by using Linzess in addition to MiraLAX instead. Orders have been written we need to observe and see what effect he has with these medications. Certainly would like to stop the MiraLAX first if this ends up being a brisk response to the Linzess. 05/06/17--The patient just had a barium study done today, he is getting his MiraLAX, if he is not a had a bowel movement today at some point we might consider use of another dose of magnesium citrate tomorrow to help him flush out the barium. He has a history of chronic constipation. 05/07/17--observing for present time. 05/08/17--Continue observation, doubt that he will do much stooling until he is starting back on tube feeds. Current Visit: Yes (5) Screening for colorectal cancer Status: Acute Assessment and plan: This patient may benefit from routine risk colorectal cancer screening at some point in the future. He is concerned about being put to sleep. He does have some anemia and it would be reasonable to do this at some point. It does not sound like he has ever had colonoscopy, and my discussions with him. 05/06/17--We should consider doing this as an outpatient at some point in the future. As mentioned above. Current Visit: Yes Gastroenterology - PN: Subj Interval history: The patient can shake his head yes or no concerning questions. Exam (Progress Note) - Constitutional Vitals: Period Temp Pulse Resp BP Sys/Ivey Pulse Ox Last 24 Hr 98.1 F-98.4 F 93-117 10-109 78-128/52-83 93-100 General appearance: no acute distress - Head Head exam: Present: normocephalic, atraumatic - Eye Eye exam: Present: EOMI Pupils: Present: SAMSON - Respiratory Respiratory exam: Present: clear to auscultation bilaterally, other (Intubated.) - Cardiovascular Cardiovascular exam: Present: regular rate and rhythm - GI/Abdominal GI/Abdominal exam: Present: normal bowel sounds, distended, soft. Absent: tenderness, rebound - Neurological Exam Neurological exam: Present: alert, altered (Unable to talk due to ET tube, moves all extremities well) - Skin Skin exam: Present: warm Results - Labs CBC & BMP: 05/08/17 08:54 05/08/17 15:22
[2017-05-08] MEDS ORDERED: PROPOFOL 200 MG/20 ML VIAL IV ONE (17:51)
[2017-05-08] MEDS ORDERED: AMIODARONE INJ 150 MG in DEXTROSE 5% 100 ML IV ONE (20:03)
[2017-05-08] MEDS: DILTIAZEM INJ 100 MG in SODIUM CHLORIDE 0.9% 100 ML IV SCH (20:25)
[2017-05-08] MEDS: ERYTHROMYCIN INJ 250 MG in SODIUM CHLORIDE 0.9% 100 ML IV SCH (21:22)
[2017-05-08] MEDS: CLORAZEPATE 3.75 MG TABLET PO SCH (23:30)
[2017-05-09] MEDS: ALBUTEROL/IPRATROPIUM 3 ML NEB RESP TX SCH ×4 (00:23→19:53)
[2017-05-09] MEDS: DILTIAZEM INJ 100 MG in SODIUM CHLORIDE 0.9% 100 ML IV SCH ×2 (02:05→20:20)
[2017-05-09] MEDS: ERYTHROMYCIN INJ 250 MG in SODIUM CHLORIDE 0.9% 100 ML IV SCH ×4 (03:10→21:14)
[2017-05-09] MEDS: PHENYLEPHRINE DRIP 40 MG/250 ML PREMIX IV SCH (03:10)
[2017-05-09] MEDS: PROPOFOL 1,000 MG/100 ML BOTTLE IV SCH ×5 (03:25→22:00)
[2017-05-09 03:38] LABS: ABG Base Excess 9.1 MMOL/L (-2.5-2.5); ABG HCO3 32.8 MMOL/L (20-26); ABG Oxygen Saturation 96.8 % (95-100); ABG PCO2 41.4 MM HG (35-48); ABG PH 7.517 (7.35-7.45); ABG PO2 84.1 MM HG (80-95); ABG TCO2 34.1 MMOL/L (23-27); Pt O2 Delivery Device Ventilator
[2017-05-09] MEDS: ENOXAPARIN 40 MG/0.4 ML SYRINGE SUBCUT SCH (04:28)
[2017-05-09 05:29] LABS: Basophils % 0.4 % (0.0-0.8); Eosinophils # 0.2 10*3/uL (0.0-0.87); Eosinophils % 1.8 % (0.00-10.9); Hematocrit 29.3 VOL% (42.0-52.0); Hemoglobin 10.3 GM/DL (14.0-18.0); Immature Granulocytes % 1.2 %; Lymphocytes # 0.8 10*3/uL (1.4-4.0); Mean Corpuscular HGB Conc 35.2 GM/DL (32-36); Mean Corpuscular Hemoglobin 36 PG (27-34); Mean Platelet Volume 14.1 FL (9.6-12.0); Monocytes # 0.9 10*3/uL (0.11-0.8); Monocytes % 10.7 % (1.7-12.7); NRBC # 0.07 10*3/uL; Neutrophils # 6.2 10*3/uL (1.4-7.4); Neutrophils % 75.9 % (38.7-73.9); Platelet Count 141 T/CUMM (130-400); Red Cell Distribution Width 13.4 % (9.3-17.3); White Blood Count 8.2 T/CUMM (4-12)
[2017-05-09 05:49] LABS: Platelet Estimate Adequate
[2017-05-09 07:40] LABS: INR 1.1; PT Patient Result 11.3 SECS; Partial Thromboplastin Time 26.1 SECS (0-40)
--- NOTE | 2017-05-09 07:54 | EKG Report ---
Stationary ECG Study [facility] Test Date: 05/08/2017 7:55:29 PM Pat Name: BREANN KELLEY Department: Room: 125 Gender: M Negative Restorer: : 1950 Requested by: Donna Sherman Order Number: [id number] Reading MD: ESTEBAN RAHMAN Intervals [place] Rate: 154 P: 999 MI: 0 QRS: 7 QRSD: 88 T: 82 QT: 314 QTc: 401 Interpretive Statements ATRIAL FLUTTER WITH RAPID VENTRICULAR RESPONSE LOW QRS VOLTAGE IN PRECORDIAL LEADS PATTERN CONSISTENT WITH PULMONARY DISEASE ST DEVIATION AND MODERATE T-WAVE ABNORMALITY, CONSIDER INFERIOR ISCHEMIA Electronically Signed On 05-10-17 07:21:10 CDT by ESTEBAN RAHMAN [email or web address]
[2017-05-09 08:06] LABS: Calcium 8.5 MG/DL (8.5-10.1); Magnesium 1.9 MG/DL (1.8-2.4); Osmolality,Calculated 269.8 MOS/KG (273-304); Potassium 2.9 MMOL/L (3.5-5.1)
--- NOTE | 2017-05-09 08:22 | XRay Report ---
Portable chest 4 Keofeed tube placement. The distal tip of the Keofeed tube projects over the area of the body the stomach, well beyond the GE junction. PROCEDURE INTERPRETED AT [facility] DEPARTMENT OF RADIOLOGY Final Report Signed by: Dr. Nataliia Barth
--- NOTE | 2017-05-09 08:48 | XRay Report ---
XR chest 1V portable Indication: Ventilator patient Comparison: 08 May 2017 Findings: The heart and mediastinum are stable in size and configuration. Pacemaker device is unchanged in position. The lines and tubes are unchanged in position. The pulmonary vascularity is increased with bilateral pulmonary density similar to previous exam. No lung infiltrates, effusions, pneumothorax or other abnormality is demonstrated. Impression: No significant change PROCEDURE INTERPRETED AT [facility] DEPARTMENT OF RADIOLOGY Final Report Signed by: Dr. Beau Trevizo
--- NOTE | 2017-05-09 09:20 | Event Note ---
In hospital diagnostic and therapeutic fiberoptic bronchoscopy. Bilateral bronchoalveolar lavage is sent for cytology, Gram stain, bacterial cultures, AFB stains and culture and fungal stains and culture. This is a 66-year-old white male with ankylosing spondylitis. He has an unexplained pleural effusion he has bilateral alveolar infiltrates he has developed acute respiratory failure requiring intubation mechanical ventilation. Aspiration has been suspected but there has not been a lot of evidence of that. He has large airway congestion suggestive of retention of secretions. His cough is ineffective. For all these reasons the patient's evaluated with fiberoptic bronchoscopy. 8. Endotracheal tube is in good position. Distal trachea was normal and the carolyn was sharp Right mainstem bronchus contained thin secretions that extended into the right upper lung and right middle lung. Secretions in the right lower lung were thicker. All of these areas were evaluated with bronchoalveolar lavage. There was slight erythema and edema of the right lower lung segments. This could be compatible with a pneumonia. No gastric contents were seen. Left mainstem bronchus contained thin secretions these extended into the left upper lung and left lower lung. These areas were evaluated with bronchoalveolar lavage. There were no endobronchial lesions. The bronchi on the right and the left were markedly collapsible. This included the large and small airways. This is compatible with the patient's known COPD The patient tolerated procedure well there were no complications. Impression. 1. Retained secretions 2. Ineffective cough 3. Acute respiratory failure requiring intubation mechanical ventilation 4. Abnormal chest x-ray with bilateral alveolar infiltrates. 5. Unexplained pleural effusion 6. COPD with collapsible large and small airways 7. Small area of erythema in the right lower lung. Possibly related to a recent pneumonia. Plan. 1. Follow-up chest x-ray 2. Check bronchoscopy
[2017-05-09] MEDS ORDERED: POTASSIUM CHLORIDE 20 MEQ/15 ML UDCUP PER TUBE ONE (09:30)
[2017-05-09] MEDS: BISOPROLOL 5 MG TABLET PO SCH (10:10)
[2017-05-09] MEDS: metOLazone 5 MG TABLET PO SCH (10:11)
[2017-05-09] MEDS: miSOPROStol 200 MCG TABLET PO SCH (10:11)
[2017-05-09] MEDS: MULTIVITAMIN (CENTRUM) TABLET PO SCH (10:11)
[2017-05-09] MEDS: ASCORBIC ACID 500 MG TABLET PO SCH (10:11)
[2017-05-09] MEDS: THIAMINE 100 MG TABLET PO SCH (10:11)
[2017-05-09] MEDS: IMIPRAMINE 25 MG TABLET PO SCH (10:11)
[2017-05-09] MEDS: PANTOPRAZOLE 40 MG TABLET PO SCH (10:11)
[2017-05-09] MEDS: LINACLOTIDE 145 MCG CAPSULE PO SCH (10:12)
[2017-05-09] MEDS: LEVOTHYROXINE 100 MCG TABLET PO SCH (10:12)
[2017-05-09] MEDS: FOLIC ACID 1 MG TABLET PO SCH (10:12)
[2017-05-09] MEDS: POLYETHYLENE GLYCOL POWDER 17 GM PACK PO SCH (10:18)
[2017-05-09] MEDS: AMINOPHYLLINE 500 MG in SODIUM CHLORIDE 0.9% 480 ML IV SCH ×2 (10:27→10:41)
[2017-05-09] MEDS: LIDOCAINE 5% PATCH TRANSDERM SCH (10:28)
[2017-05-09] MEDS: POTASSIUM CHLORIDE RIDER 10 MEQ in PREMIX 1 EACH IV SCH ×8 (10:34→21:09)
[2017-05-09] MEDS: LEVOFLOXACIN INJ 500 MG in PREMIX 1 EACH IV SCH (10:43)
[2017-05-09] MEDS ORDERED: DEXTROSE 50% 25 GM/50 ML SYRINGE IV PRN (10:52)
[2017-05-09] MEDS ORDERED: GLUCAGON 1 MG VIAL IM PRN (10:52)
--- NOTE | 2017-05-09 11:42 | Hospitalist Progress Note ---
Assessment and Plan (1) Ankylosing spondylitis Problem details: Spinal pain secondary to ankylosing spondylitis Status: Chronic Assessment and plan: 1)respiratory acidosis- on vent day 3. He has started CPAP trials. Bronch this morning with collapsible airways, no sign of aspiration or sig secretions. Current plan is to minimize his pain medicine dramatically and Dr Patel is working toward that goal as his narcotics and marijuana may be contributing to his resp problems. He has been on ceftaz and levaquin 2)UTI- day 6 of antibiotics- may be able to stop tomorrow. 3)pleural effusion- improved 4)ankylosing spondylitis with chronic pain from spinal stenosis 5)hypothyroidism 6)COPD 7)severe pulmonary HTN- outlier finding on echo on this admission- was much lower on recent echo. reeval. 8)hypokalemia- given a combination of oral and IV replacement- recheck this afternoon. 9)afib/flutter- Dr Ramírez consulting cardiology. rate in 90s this morning. On IV dilt drip. Defer anticoagulation plan to cardiology. He has had anemia. His rate and rhythm may improve with replacement of his potassium. mag is ok. 10)GI- trouble swallowing, dysmotility. Emycin started per Dr Reddy. Current Visit: No Qualifiers: Ankylosing spondylitis location: multiple sites in spine Qualified Code(s) : M45.0 - Ankylosing spondylitis of multiple sites in spine (2) Lower extremity edema Status: Acute Current Visit: No (3) Hypokalemia Status: Acute Current Visit: No (4) Chronic venous stasis dermatitis Status: Acute Current Visit: No (5) COPD (chronic obstructive pulmonary disease) Status: Chronic Current Visit: No (6) HTN (hypertension) Status: Chronic Current Visit: No (7) Urinary tract infection Status: Acute Current Visit: No (8) Respiratory failure Status: Acute Current Visit: Yes Hospitalist: Subjective Interval history: Mr Fischer is stable on the vent this morning. He is alert. He had bronchoscopy this morning which he tolerated. He has been afebrile. He started CPAP trials yesterday. His effusion has decreased in size. Exam - Constitutional Vitals: Period Temp Pulse Resp BP Sys/Ivey Pulse Ox Last 24 Hr 97.3 F-98.1 F 80-135 12-28 91-196/55-127 94-100 General appearance: no acute distress, over weight - Eye Eye exam: Present: EOMI. Absent: scleral icterus - Respiratory Respiratory exam: Present: clear to auscultation bilaterally - Cardiovascular Cardiovascular exam: Present: regular rate and rhythm - GI/Abdominal GI/Abdominal exam: Present: normal bowel sounds, soft. Absent: tenderness - Extremities Exam Extremities exam: Present: edema - Neurological Exam Neurological exam: Present: alert - Skin Skin exam: Present: warm, dry Results - Labs CBC & BMP: 05/09/17 04:15 05/09/17 07:16 Lab Results: I have reviewed the past 24 hour labs Quality Measures - Stroke Symptom Onset Unknown: No
--- NOTE | 2017-05-09 11:52 | Pulmonology Progress Note ---
Pulmonary - PN: Subj Interval history: Mr. Fischer is a 66-year-old white male who we saw in initial pulmonary consultation on 05/04/2017. At that time, our impressions were: #1: Acute altered mental status most likely secondary to #2 but consider other causes #2: Acute urinary tract infection #3: Ankylosing spondylitis with probable spinal stenosis. Anatomy and pain limited mobility. #4: Peripheral sensory neuropathy. His symptoms have gradually worsened over time. #5: Chronic venous stasis of the lower extremities. #6: Vitamin B deficiency. #7: Past history of tobacco abuse #8: COPD/asthma #9: Past history of high blood pressure #10: Hypothyroidism #11: Bilateral pleural effusions of unknown etiology #12: Dual-chamber cardiac pacemaker #13: History of marijuana use #14: History of compression fractures with chronic pain. Now under the care of Dr. Patel. #15: See past history 05/05/2017. Patient was seen today along with his . The patient is awake, alert, and oriented this morning. His theophylline was discontinued per the 's request yesterday. Of note, his theophylline level was 7.9. He has been seen in pain management consultation with Dr. Patel. His note has been reviewed. We appreciate his assistance. He will be out of town for the next few days, but upon his return we will begin tapering the patient's pain medications as per his note. Patient's lower extremities continue to be edematous. We will give Mr. Keith a one-time dose of IV Lasix. We will start Zaroxolyn 5 mg p.o. daily and KCl 20 mEq daily. Daily BMP/magnesium has been ordered. The patient's echocardiogram this admission as read by Dr. Vega showed an estimated EF of 60%, approximately 1+ mitral and aortic regurgitation , 1-2+ tricuspid regurgitation with a right ventricular systolic pressure of 60 mmHg plus the right atrial pressure suggesting severe pulmonary hypertension. This is a significant change from the echocardiogram done 04/12/[address] Nova which showed an EF estimated at 60%, grade 1 diastolic dysfunction, normal to mildly elevated filling pressures, mild aortic valve regurgitation, moderate ventricular hypertrophy with no demonstrable increase in right-sided pressure, and tricuspid regurgitation velocity suggesting a right ventricular systolic pressure of 23 mmHg plus the right atrial pressure. On chest x-ray today, the pleural effusion is improved. This patient has great difficulty laying flat given his ankylosing spondylitis, so we will begin diuresing him with his Zaroxolyn and see if his pleural effusion will resolve rather than proceed with CT PE protocol at this time. We will repeat a chest x-ray on Monday. Doppler venograms showed no evidence of dizziness thrombophlebitis. Abdominal ultrasound showed no ascites. Medications have been reviewed. Labs have been reviewed. White count is 5900 with a normal differential; H&H 10.7/33.6; platelet count 172,000; creatinine 0.40, BUN 8, electrolytes are normal; magnesium 2.5 Microbiology has been reviewed. Urine culture has grown E. coli. He is on Fortaz and Levaquin. Urine drug screen was positive for benzodiazepines and cannabinoids 05/08/2017 during the weekend the patient deteriorated. He developed a severe acidosis and a markedly elevated PCO2 and required movement to CCU along with intubation mechanical ventilation. He is still on the ventilator.His chest x- ray shows bibasilar infiltrates and some faint infiltrates in the right upper lung. Still has a small right pleural effusion. This is unexpected and I have to wonder about aspiration. We will plan to evaluate with fiberoptic bronchoscopy in the morning. His only positive cultures E. coli from his urine. ABGs have been ordered but are pending. Potassium is low at 3.0 and the patient will be placed on protocol. Natruretic peptide is 92. H&H is 10.8/ 31.9. White count is 8674.4 segs 7 lymphs and 16.1 monocytes. EKG shows no acute changes. At this point I am not entirely clear why the patient deteriorated so rapidly. 05/09/2017. Today's chest x-ray is better. Patient has cardiomegaly. He has bilateral alveolar and interstitial changes and he has a small to moderate size right pleural effusion. He is alert and oriented and can cooperate. Earlier today I evaluated patient with fiberoptic bronchoscopy. See the report. He had some mild erosive slightly friable bronchitis in the right lower lung that had the appearance of a recent pneumonia. This may be the etiology of his pleural effusion. The patient had only a small amount of sputum and both bronchial trees. I did not see any food or gastric content. Today the patient will go to stage II of his weaning protocol. The only positive culture is E. coli from the urine. ABGs on mechanical ventilation FiO2 40% shows a pH of 7.52 , PCO2 41.4, PO2 of 84.1 and a bicarb of 32.8. H&H is gradually dropping to 10.3/29.3. White count is 8276 segs and platelets are 141,000. Potassium is low at 3.2 and is being replaced. Theophylline level is 7.4. Last night the patient had atrial fib that required Cardizem and amiodarone. The patient's most recent echocardiogram (05/04/2017) showed pulmonary artery pressure above 70 whereas a month or so ago his pulmonary artery pressures were normal. We will repeat this today. Cardiology is seeing the patient in the past and placed cardiac pacemaker. Will last for follow-up evaluation. Also we have asked that his magnesium be checked. Exam (Progress Note) - Constitutional Vitals: Period Temp Pulse Resp BP Sys/Ivey Pulse Ox Last 24 Hr 5 F-98.0 F 83-105 18-28 118-166/66-83 88-99 Exam: Neurologic. Sedated. Staff says he cooperates when he is awake Chest. Loose large airway congestion Heart no gallop Abdomen is obese, but nontender and nondistended; bowel sounds are positive 4 Extremities with nothing to suggest acute deep venous thrombophlebitis; bilateral pedal and pretibial edema; chronic venous stasis changes Neck. Also normal curvature secondary to ankylosing spondylitis. Lymphatics. No submandibular cervical supraclavicular or epitrochlear adenopathy. The remainder the exam is noncontributory Plan. 05/08/2007 1. Fiberoptic bronchoscopy in the morning 2. Mechanical ventilation weaning protocol and physical therapy protocol 3. See today's note, above 05/09/2017. 1. Fiberoptic bronchoscopy showed no evidence of aspiration see report 2. Stage II to weaning protocol 3. Repeat echocardiogram with attention to recent onset of pulmonary hypertension 4. Replace potassium 5. Check magnesium 6. Daily chest x-ray ABGs and lab 7. Watch slow decline of H&H 8. Check bronchoscopy specimens 9. Cardiology consult Exam (Progress Note) - Constitutional Vitals: Period Temp Pulse Resp BP Sys/Ivey Pulse Ox Last 24 Hr 97.3 F-98.1 F 80-135 12-28 91-196/55-127 94-100 Results - Labs CBC & BMP: 05/09/17 04:15 05/09/17 07:16
--- NOTE | 2017-05-09 12:11 | Cardiology Consult Note ---
Assessment and Plan - Time spent with patient Time spent with patient: Greater than 30 minutes (Examination, chart review, documentation, orders and pacemaker interrogation and decision making) (1) Paroxysmal atrial fibrillation Status: Acute Assessment and plan: This is been paroxysmal is occurred at least once before when I saw the patient in March of this year. I will have [employer] account representative interrogate the device and get some idea of his A. fib burden. If this only seems to occur when he is decompensated from a respiratory status and has other contributing factors such as Aminophyllin infusion and hypokalemia I would not necessarily proceed with anticoagulation this time of correct the underlying reversible problem such as you are doing with support of respiratory status and repleting potassium and magnesium empirically. If it is occurring more frequently he may likely benefit from anticoagulation if there is no contraindication. I am not able to find any contraindication at this time. He does have anemia but it appears to be chronic. We will also ensure that his atrial therapies are turned on and atrial preference pacing is an option hopefully in his device. Current Visit: Yes (2) Paroxysmal atrial flutter Status: Acute Assessment and plan: As above for atrial fibrillation Current Visit: Yes (3) History of coronary artery disease Status: Chronic Current Visit: Yes (4) Chronic constipation Status: Acute Current Visit: Yes (5) Macrocytic anemia Status: Acute Current Visit: Yes (6) Respiratory failure Status: Acute Current Visit: Yes Qualifiers: Chronicity: acute on chronic (7) High-grade atrioventricular block Status: Resolved Assessment and plan: Treated with pacing Current Visit: No History of Present Illness - Data of Consult Patient: known to practice within the last 3 years Consult date: 05/09/17 Requesting Physician: Bala Ramírez - Consult Narrative Reason for consult: Atrial flutter History of present illness: Mr. Fischer is a 66 year old male with COPD pulmonary hypertension ankylosing spondylolysis peripheral neuropathy chronic renal insufficiency paroxysmal atrial fibrillation dyslipidemia hypothyroidism and debility who [facility] He is admitted here with COPD exacerbation mechanical ventilation. He is on theophylline infusion as well with many other IV medications in the ICU. The patient experienced transient atrial fibrillation/ flutter last night been consulted to see. The patient's primary verification clerk is Dr. Clemens. I saw the patient on Dr. Clemens's behalf on 04/13/2017 for which time he was having altered mental status and was noted to have a pacemaker. The patient is a reformed smoker he previously has coronary artery disease he is debilitated due to his ankylosing spondylitis and other comorbidities. The patient has a preserved ejection fraction at his last transthoracic echo with EF of 50-55%. He has a dual-chamber pacemaker placement for bradycardia and sinus pauses placed after transient third-degree heart block in February 28. He is evaluated and lives at [facility]. The patient is now on mechanical ventilation in the ICU. He is in sinus rhythm at this time, sinus tachycardia. CC: Donna Sherman MD - Home Medications and Allergies Home Medications: Home Medications Medication Instructions Recorded Confirmed Type Imipramine HCl 25 mg PO DAILY 02/20/17 05/03/17 History Levothyroxine Tab [Synthroid Tab] 100 mcg PO DAILY 02/20/17 05/03/17 History Theophylline ER Tab 300 mg PO Q12H 02/20/17 05/03/17 History Bisoprolol [Zebeta] 5 mg PO DAILY tablet 03/02/17 05/03/17 Rx Folic Acid Tab 1 mg PO DAILY tablet 03/02/17 05/03/17 Rx Lidocaine 5% Patch [Lidoderm 5% 1 patch TRANSDERM DAILY patch 03/02/17 Rx Patch] Multivitamin (Centrum) [Centrum 1 tablet PO DAILY tablet 03/02/17 05/03/17 Rx Tab] Thiamine Tab [Vitamin B1 Tab] 100 mg PO DAILY tablet 03/02/17 05/03/17 Rx miSOPROStol [Cytotec] 200 mcg PO DAILY tablet 03/02/17 05/03/17 Rx Albuterol Sulfate [Albuterol Neb] 2.5 mg RESP TX TID 04/11/17 05/03/17 History Ascorbic Acid Tab [Vitamin C Tab] 500 mg PO DAILY 04/11/17 05/03/17 History Bisacodyl Tab [Dulcolax Tab] 5 mg PO DAILY PRN 04/11/17 05/03/17 History Lactulose Liquid [Chronulac] 30 ml PO BID 04/11/17 05/03/17 History HYDROcodone/ACETAMIN 5-325 [[place] 1 tablet PO Q8H PRN #90 tablet 04/19/17 Rx 5-325] Skin Healing Oint (Aquaphor) 1 applic TOP PRN PRN applic 04/19/17 05/03/17 Rx [Aquaphor] Clorazepate [Tranxene] 3.75 mg PO BEDTIME 05/04/17 05/04/17 History fentaNYL 12 MCG/HR PATCH 1 patch TRANSDERM Q3DAY 05/04/17 05/04/17 History [Duragesic 12 Patch] Allergies/Adverse Reactions: Allergies Allergy/AdvReac Type Severity Reaction Status Date / Time codeine Allergy Unknown UNRESPONSIV Verified 04/12/17 00:48 E acetaminophen [From Percocet] Allergy Verified 04/12/17 00:48 escitalopram [From Lexapro] Allergy Verified 04/12/17 00:48 gabapentin [From Neurontin] Allergy Verified 04/12/17 00:48 Hydromorphone [From Dilaudid] Allergy Verified 04/12/17 00:48 Oxycodone [From Percocet] Allergy Verified 04/12/17 00:48 ROS unobtainable: due to endotracheal tube Medical,Surgical,& Family Hx - Medical History Cardio: History of: CAD, Hypertension, Pacemaker (Dual-chamber placed in February [address] Clemens) No history of: [place], [place] Psychological: History of: Anxiety Disorders, Depression Neurology: History of: Vertigo HEENT: History of: Eye Problem (WEARS GLASSES, NEAR SIGHTED, CATARACT LEFT EYE) Endocrine: History of: Thyroid Disorder No history of: Diabetes Mellitus (IDDM), Diabetes Mellitus (NIDDM), Dyslipidemia Respiratory: History of: Bronchitis, COPD, Intubation, Pulmonary Hypertension ( Likely secondary to COPD), Pneumonia Renal: No history of: Renal Problems Genitourinary: History of: Prostate Problems (PROSTATE CA) Gastrointestinal: History of: Gastrointestinal Bleed, Hemorrhoids Musculoskeletal: History of: Back/Neck Problems, Degenerative Disk Disease, Herniated Disk, Musculoskeletal Problems (Ankylosing spondylitis) Hematology: No history of: Anemia Other: History of: Cancer (prostate ca), Miscellaneous Medical Problems ( ankylosing spondylitis) - Surgical History Cardiac Surgeries: Sugical HX of: Cardiac Catheterization Patient Denies: Femoral-Popliteal Bypass Graft, Cardiac Surgery, Carotid Endarterectomy, Internal Defibrillator, Vascular Access Devices Thoracic Surgeries: Patient denies;: Organ Transplant Neurologic Surgeries: Patient denies: Neurologic Surgery HEENT Surgeries: Surgical HX of: Tonsilectomy & Adenoidectomy Patient denies: Carotid Endarterectomy Abdominal Surgeries: Patient denies: Abdominal Surgery, Splenectomy Reproductive Surgeries: Surgical HX of;: Genitourinary Surgery, Prostate Surgery (PROSTATECTOMY) Orthopedic Surgeries: Surgical HX of;: Orthopedic Surgery (RIGHT ANKLE FRACTURE) Additional Surgical History: Dual-chamber pacemaker placement, [employer] - Family History Family History: Reports;: Family Cancer (FATHER (TESTICULAR CA)), Family Diabetes (FATHER), Family Heart Disease (MOTHER), Family Hypertension - Social History Smoking Status: Former smoker Frequency of Alcohol Use: None Type of Drug Use: None Lives With:: [facility] Physical Examination Vital Signs Temp Pulse Resp BP Pulse Ox 97.6 F 116 H 22 113/70 100 05/03/17 20:35 05/03/17 20:35 05/03/17 20:35 05/03/17 20:35 05/03/17 20:35 General: Present: Appears Well HEENT: Present: Normocephaly Neck: Present: Supple Neck, Midline Trachea Cardiac: Present: S1/S2, Tachycardia Lungs: Present: Wheezes, Scattered Rhonchi Neuro: Present: Other (Patient is sedated) Abdomen: Present: Soft, Active Bowel Sounds Skin: Present: Clear Extremities: Present: +2 Edema (Erythema in his lower extremity) Result/EKG - Labs CBC & BMP: 05/09/17 04:15 05/09/17 07:16 Labs: Laboratory Results - last 24 hr 05/08/17 05/09/17 05/09/17 15:22 03:25 04:15 WBC 8.2 RBC 2.90 L Hgb 10.3 L Hct 29.3 L MCV 101.0 MCH 36 H MCHC 35.2 RDW 13.4 Plt Count 141 MPV 14.1 H Neut % (Auto) 75.9 H Lymph % (Auto) 10.0 L Angelina % (Auto) 10.7 Eos % (Auto) 1.8 Baso % (Auto) 0.4 Neut # (Auto) 6.2 Lymph # (Auto) 0.8 L Angelina # (Auto) 0.9 H Eos # (Auto) 0.2 Baso # (Auto) 0.0 Immature Gran % 1.2 Nucleated RBC % 0.9 Immature Gran # 0.10 Nucleated RBCs # 0.07 Platelet Estimate Adequate Immature Plt Fraction 0.0 Morphology Comment INR PT Patient/Control Mix Circ Anticoag PTT ABG pH 7.517 H ABG pCO2 41.4 ABG pO2 84.1 ABG HCO3 32.8 H ABG Total CO2 34.1 H ABG O2 Saturation 96.8 ABG Base Excess 9.1 H FiO2 40.00 Sodium Potassium 3.2 L Chloride Carbon Dioxide Anion Gap BUN Creatinine GFR Calculation BUN/Creatinine Ratio Glucose Calculated Osmolality Calcium Magnesium Theophylline 05/09/17 05/09/17 05/09/17 07:16 07:16 07:16 WBC RBC Hgb Hct MCV MCH MCHC RDW Plt Count MPV Neut % (Auto) Lymph % (Auto) Angelina % (Auto) Eos % (Auto) Baso % (Auto) Neut # (Auto) Lymph # (Auto) Angelina # (Auto) Eos # (Auto) Baso # (Auto) Immature Gran % Nucleated RBC % Immature Gran # Nucleated RBCs # Platelet Estimate Immature Plt Fraction Morphology Comment INR 1.1 PT Patient/Control Mix 11.3 Circ Anticoag PTT 26.1 D ABG pH ABG pCO2 ABG pO2 ABG HCO3 ABG Total CO2 ABG O2 Saturation ABG Base Excess FiO2 Sodium 137 Potassium 2.9 L Chloride 94 L Carbon Dioxide 32 Anion Gap 13.9 BUN 5 L Creatinine 0.20 L GFR Calculation 239 BUN/Creatinine Ratio 25.00 H Glucose 102 Calculated Osmolality 269.8 L Calcium 8.5 Magnesium 1.9 Theophylline 7.4 L - EKG EKG results: interpreted by me (Atrial flutter) Quality Measures - Stroke Symptom Onset Unknown: No
[2017-05-09] MEDS: INSULIN LISPRO 100 UNIT/ML SUBCUT SCH ×2 (12:45→18:58)
--- NOTE | 2017-05-09 12:59 | Event Note ---
The [employer] airport representative the cell count to come and interrogate Mr. Fischer' s device. He has a very low atrial fibrillation or atrial flutter burden. His therapies have not been turned down as it was just implanted in February of this year. I asked the airport representative turn the atrial therapies on this activity was performed. It should pace terminate hopefully most atrial dysrhythmias at this time. He at this time I think does not have a burden that would warrant anticoagulation his episodes appear to be related to his acute illness which is accompanied by steroids xanthine derivatives and this particular case hypokalemia and presumptively hypomagnesemia. If his A. fib flutter burden increases consider anticoagulation.
--- NOTE | 2017-05-09 14:07 | Gastrointestinal Progress Note ---
Assessment and Plan (1) Dysphagia, pharyngoesophageal Status: Acute Assessment and plan: This patient may have reflux in association with his chronic inability to change his position and remain upright. There may be reflux induced by a hypomotility the GI tract as well. It is possible that esophageal stricturing may be occurring as a result of impingement on the esophagus by bridging osteophytes from his fairly severe ankylosing spondylitis as well. I will have the patient undergo a barium swallow to evaluate this tomorrow and will plan on doing upper endoscopy with potential dilation to follow on Monday morning. I will leave him off of his anticoagulation for at least one day prior to the endoscopy to occur on Monday. In the interim we will go ahead and place the patient on pantoprazole IV twice daily to see if this helps out with his appetite. Will also add some medications colonic flow and decrease his bloating by getting rid of the lactulose. Risks of the above endoscopy include but are not limited to: Bleeding, infection, perforation, cardiac and pulmonary compromise. These were discussed with the patient, his , and son and they agreed to proceed with upper endoscopy to occur on Monday. 05/06/17--the patient's barium swallow fails to show any impingement upon the esophagus, overall the esophagus was narrowed there was no evidence of cancer nor dominant stricture noted. He is remaining off of anticoagulation in order to proceed with upper endoscopy to occur on Monday. I anticipate being able to do his dilation at that time. He is somewhat less bloated after discontinuing the lactulose. 05/07/17--We will check the patient's ammonia level since he was previously on lactulose and this has now been discontinued using MiraLAX and in its lieu. 05/08/17--findings at upper endoscopy today were as follows: No gross evidence of dominant stricture however the patient's upper esophagus did have a slight narrowing that was dilated to 57 Nepalese by single pass Savary dilator with replacement of NG tube at the end of the case endoscopically. There was a sizable hiatal hernia noted and LA class B esophagitis. Stomach was J-shaped and had a diffuse gastritis noted, biopsies were taken, a dilated duodenum was also noted with biopsies taken here as well for sprue. Suggest holding off on restarting tube feeds until after the bronchoscopy is completed tomorrow. Will initiate erythromycin via the NG tube now that this is confirmed in the stomach endoscopically. 05/09/17--The bronchoscopy is been completed and the patient is now getting tube feeds at 35 mL/h. We will continue to watch and see what his residuals look like although this will be harder check with a Dobbhoff feeding tube. He remains on erythromycin 250 mg every 6 hours to help with his motility. He is starting to step up his diarrhea and I will ramp down on his MiraLAX as a result. Current Visit: Yes (2) Abnormal weight loss Status: Acute Assessment and plan: For the past year the patient states that his weight has dropped from 275 pounds to 229 pounds. He states that while some of this is volitional some of it is certainly not and he is only been able to eat about 10% of his trays while here. He does not have the sensation of reflux. His difficulty with swallowing is overcome by chewing his food extremely carefully and following bites with clear liquids in between. This only occurs with solids and is highly suspicious for a physical stricture versus cancer. Again a barium swallow is being arranged for tomorrow--not only will this look for physical stricture but also assess for spinal impingement and dysmotility at the same time. 05/06/17--No new complaints, awaiting upper endoscopy Monday. 05/07/17--we will arrange for upper endoscopy Monday, tomorrow in order to look for evidence of the cause for his weight loss and consider doing dilation at the same time 05/08/17--We Will see how he is able to swallow later after he is off the ventilator. The patient has no gross evidence of an obstruction but does have dilation of the duodenum possibly pointing to a GI hypomotility. 05/09/17--Tube feedings been started, observe residuals. This patient will have a tendency towards ileus, hence the start of the erythromycin. Current Visit: Yes (3) Macrocytic anemia Status: Acute Assessment and plan: May be related to B12 or folate deficiency versus alcohol intake versus myelodysplastic syndrome. His platelet level is normal I do not believe this is cirrhosis-related. 05/07/17--B12 and folate levels were completely normal. This leaves myelodysplastic syndrome versus cirrhosis is potential causes for the patient's macrocytic chronic anemia 05/08/17--as noted above 05/09/17--Patient does have some mild upper GI bleeding, will continue to observe. Current Visit: Yes (4) Chronic constipation Status: Acute Assessment and plan: This patient does have chronic constipation possibly related to his intake of hydrocodone/acetaminophen as well as his low-dose fentanyl patch and poor mobility possibly poor hydration. She has been given lactulose which is probably adding to his bloating and I have discontinued this medication. His has had great success with enemas and magnesium citrate at home. I am going to see if we can get by using Linzess in addition to MiraLAX instead. Orders have been written we need to observe and see what effect he has with these medications. Certainly would like to stop the MiraLAX first if this ends up being a brisk response to the Linzess. 05/06/17--The patient just had a barium study done today, he is getting his MiraLAX, if he is not a had a bowel movement today at some point we might consider use of another dose of magnesium citrate tomorrow to help him flush out the barium. He has a history of chronic constipation. 05/07/17--observing for present time. 05/08/17--Continue observation, doubt that he will do much stooling until he is starting back on tube feeds. 05/09/17--The patient is doing better with the MiraLAX twice daily and erythromycin. At this point given his diarrhea will cut back to once a day with MiraLAX. Current Visit: Yes (5) Screening for colorectal cancer Status: Inactive Assessment and plan: This patient may benefit from routine risk colorectal cancer screening at some point in the future. He is concerned about being put to sleep. He does have some anemia and it would be reasonable to do this at some point. It does not sound like he has ever had colonoscopy, and my discussions with him. 05/06/17--We should consider doing this as an outpatient at some point in the future. As mentioned above. Current Visit: Yes Gastroenterology - PN: Subj Interval history: No new complaints, does not have any abdominal pain based on yes and no answers as the patient is still intubated on the vent but alert and cognizant. Exam (Progress Note) - Constitutional Vitals: Period Temp Pulse Resp BP Sys/Ivey Pulse Ox Last 24 Hr 97.3 F-98.1 F 79-135 12-25 91-196/55-127 94-100 General appearance: no acute distress - Eye Eye exam: Present: EOMI Pupils: Present: SAMSON - Respiratory Respiratory exam: Present: clear to auscultation bilaterally. Absent: rhonchi, stridor, wheezes - Cardiovascular Cardiovascular exam: Present: regular rate and rhythm - GI/Abdominal GI/Abdominal exam: Present: normal bowel sounds, distended, soft. Absent: tenderness, rebound - Neurological Exam Neurological exam: Present: alert, altered (Unable to test) - Psychiatric Psychiatric exam: Present: normal affect - Skin Skin exam: Present: warm Results - Labs CBC & BMP: 05/09/17 04:15 05/09/17 07:16
[2017-05-09 14:09] LABS: Osmolality,Calculated 271.8 MOS/KG (273-304); Potassium 3.8 MMOL/L (3.5-5.1)
[2017-05-09] MEDS ORDERED: ERYTHROMYCIN ETHYLSUCCINATE 40 MG/ML 100 ML/BOTTLE NG SCH (20:00)
[2017-05-09] MEDS: CLORAZEPATE 3.75 MG TABLET PO SCH (20:19)
[2017-05-10] MEDS: ALBUTEROL/IPRATROPIUM 3 ML NEB RESP TX SCH ×4 (00:18→18:59)
[2017-05-10] MEDS: INSULIN LISPRO 100 UNIT/ML SUBCUT SCH ×5 (00:41→23:50)
[2017-05-10] MEDS: PROPOFOL 1,000 MG/100 ML BOTTLE IV SCH ×6 (03:18→23:06)
[2017-05-10] MEDS: ERYTHROMYCIN INJ 250 MG in SODIUM CHLORIDE 0.9% 100 ML IV SCH ×4 (03:19→22:20)
[2017-05-10 03:35] LABS: ABG Base Excess 12.4 MMOL/L (-2.5-2.5); ABG HCO3 36.1 MMOL/L (20-26); ABG Oxygen Saturation 97.1 % (95-100); ABG PCO2 45.2 MM HG (35-48); ABG PH 7.519 (7.35-7.45); ABG PO2 80.3 MM HG (80-95); ABG TCO2 33.3 MMOL/L (23-27)
[2017-05-10 05:10] LABS: Calcium 7.2 MG/DL (8.5-10.1); Magnesium 1.6 MG/DL (1.8-2.4); Osmolality,Calculated 276.4 MOS/KG (273-304); Phosphorous 1.9 MG/DL (2.5-4.9); Potassium 2.9 MMOL/L (3.5-5.1); Prealbumin 6.8 MG/DL (20-40)
[2017-05-10] MEDS: ENOXAPARIN 40 MG/0.4 ML SYRINGE SUBCUT SCH (05:36)
[2017-05-10] MEDS: LEVOTHYROXINE 100 MCG TABLET PO SCH (06:24)
--- NOTE | 2017-05-10 07:28 | XRay Report ---
Portable chest. Indication: Ventilated patient. Comparison: May 09, 2017. The heart is enlarged. The distal tip of the endotracheal tube is very near the carolyn and needs to be retracted slightly. Cardiac hardware is in satisfactory position. The distal tip of a nasogastric tube projects off the field of the film. There are bilateral infiltrates and pleural effusions which remain stable. Impression: Stable appearance of the lung easley. Endotracheal tube is now at the carolyn and needs to be retracted somewhat. Nursing service notified. PROCEDURE INTERPRETED AT [facility] DEPARTMENT OF RADIOLOGY Final Report Signed by: Dr. Nataliia Barth
--- NOTE | 2017-05-10 10:06 | XRay Report ---
History: Endotracheal tube position Date: 05/10/2017 at 9:25 AM Study: Chest x-ray AP portable Comparison exam: 05/10/2017 at 3:16 AM Evaluation is difficult because of superimposed mandible, though the endotracheal tube overlies the general region of the trachea superior to the carolyn and grossly appears in satisfactory position. The feeding tube traverses the esophagus. A left subclavian dual-lead transvenous pacemaker is stable. There is continued cardiomegaly. The mediastinal contours are unchanged. There is continued bibasilar pulmonary edema/infiltrate and moderate bilateral pleural effusion. Osseous structures are unchanged. Impression: The endotracheal tube appears to be in generally satisfactory position. Otherwise unchanged PROCEDURE INTERPRETED AT [facility] DEPARTMENT OF RADIOLOGY Final Report Signed by: Dr. Lea Sawant
--- NOTE | 2017-05-10 10:08 | Cardiology Progress Note ---
<Natividad Chan E - Last Filed: 05/10/17 09:49> Assessment and Plan - Time spent with patient Time spent with patient: Greater than 30 minutes (1) Respiratory failure Status: Chronic Assessment and plan: SEE PLAN OF CARE LISTED BELOW Current Visit: Yes (2) CAD (coronary artery disease) Status: Chronic Assessment and plan: SEE PLAN OF CARE LISTED BELOW Current Visit: Yes (3) Ankylosing spondylitis Problem details: Spinal pain secondary to ankylosing spondylitis Status: Chronic Assessment and plan: SEE PLAN OF CARE LISTED BELOW Current Visit: No Qualifiers: Ankylosing spondylitis location: multiple sites in spine Qualified Code(s) : M45.0 - Ankylosing spondylitis of multiple sites in spine (4) Lower extremity edema Status: Acute Assessment and plan: SEE PLAN OF CARE LISTED BELOW Current Visit: No (5) Hypokalemia Status: Acute Assessment and plan: SEE PLAN OF CARE LISTED BELOW Current Visit: No (6) Chronic back pain Status: Chronic Assessment and plan: SEE PLAN OF CARE LISTED BELOW Current Visit: No Qualifiers: Back pain location: low back pain Back pain laterality: midline Sciatica presence: with sciatica Sciatica laterality: sciatica laterality unspecified Qualified Code(s): M54.40 - Lumbago with sciatica, unspecified side; G89.29 - Other chronic pain (7) COPD (chronic obstructive pulmonary disease) Status: Chronic Assessment and plan: SEE PLAN OF CARE LISTED BELOW Current Visit: No (8) High-grade atrioventricular block Status: Resolved Assessment and plan: SEE PLAN OF CARE LISTED BELOW Current Visit: No (9) Status post biventricular pacemaker Status: Chronic Assessment and plan: SEE PLAN OF CARE LISTED BELOW Current Visit: No (10) Hyperlipidemia Status: Chronic Assessment and plan: SEE PLAN OF CARE LISTED BELOW Current Visit: No (11) Cardiac pacemaker in situ Status: Chronic Assessment and plan: SEE PLAN OF CARE LISTED BELOW Current Visit: No (12) HTN (hypertension) Status: Chronic Assessment and plan: SEE PLAN OF CARE LISTED BELOW Current Visit: No Cardiology - PN: Subj Interval history: ORE STORAGE DRIER: DR. HOPKINS SUMMARY: Mr. Fischer, 66WM, with a history of CAD, hypertension, pulmonary hypertension, severe ankylosing spondylitis, chronic renal insufficiency, dyslipidemia, PAF, chronic venous insufficiency and chronic pain. History of complete AV disassociation required dual-chamber pacemaker implantation February. Echo February 2017 revealed the following: EF 50-55%, diastolic dysfunction , mild LVH. Severely debilitated who resides at [facility]. Admitted May 05, 2017 with COPD exacerbation requiring mechanical ventilation. Patient is in sinus rhythm at this time, sinus tachycardia. Underwent EGD May 08, 2017 which revealed the following: diffuse gastritis, required dilation. MAY 10, 2017: Patient remains on IV Aminophyllin, mechanical ventilator. [employer] traveling sales representative did interrogate Mr. Fischer's device yesterday. Adjustments in the device ensued yesterday. At this time, it is reported he has a very low atrial fibrillation or atrial flutter burden. Per Dr. Rand's note, should his atrial fib/atrial flutter burden increase, consider anticoagulation. Patient is hypokalemic this morning. Will verify he is receiving the potassium replacement protocol, rechecking this afternoon. CBC pending. Heart rate averaging high 90s and low 100s. Blood pressure will tolerate increase in beta-shana and I will do so this morning. Appears to remain in normal sinus rhythm/sinus tachycardia. I will further discuss with Dr. Rand and await additional recommendations. ASSESSMENT/PLAN: 1. PAF - currently in normal sinus rhythm, sinus tachycardia. See note listed above. Currently on Lovenox 40 mg subcu only. He is no longer on IV diltiazem. Taking Zebeta 2. COPD - Aminophyllin IV continues 3. RESPIRATORY FAILURE -maintained on mechanical ventilation. 4. HISTORY CAD - will incorporate Aspirin when able 5. HYPOKALEMIA - replacing this morning. Will ask that this be rechecked this afternoon at 2 PM and reevaluate 6. ANKYLOSING SPONDYLITIS - continue current plan of care 7. S/P PPM - was interrogated yesterday. Please see above. 8. MACROCYTIC ANEMIA - post EGD. Received favorable results without obvious bleeding. 9. DEBILITY - continue current plan of care Exam (Progress Note) - Constitutional Vitals: Period Temp Pulse Resp BP Sys/Ivey Pulse Ox Last 24 Hr 97.9 F-98.8 F 79-101 12-27 84-154/63-86 88-100 Exam: General: [Appears chronically ill. ] [Appears comfortable.] HEENT: [Normocephalic, atraumatic. Mucous membranes moist. No jaundice noted. Conjunctiva moist and clear, sclerae anicteric] Neck: Unable to assess for JVD due to habitus. No thyromegaly or lymphadenopathy noted. No carotid bruit appreciated Cardiac: [Regular rate and rhythm.] [No obvious murmur rub or gallop.] Well- healed pacemaker insertion site left upper chest Lungs: [Coarse to auscultation without symmetrical chest wall movements. Intubated and sedated Abdomen: Soft, bowel sounds normoactive. Nontender and nondistended. No abdominal bruit or thrill noted. No masses noted. Musculoskeletal: Decreased range of motion is noted. Chronic arthritic type changes noted Extremities: No clubbing, cyanosis noted. [Right lower extremity edema 4+, left lower extremity edema 3+. Left upper extremity edema 3+ right upper extremity edema 1-2+. Radial pulses 1+. DP pulses palpable lower extreme Skin: Chronic cellulitis type changes noted right lower extremity. No skin breakdown appreciated. Neuro: Intubated, sedated. Reportedly moves all extremities and follows commands appropriately when sedation is withheld. No essential tremor is appreciated. Result/EKG - Labs CBC & BMP: 05/09/17 04:15 05/10/17 03:41 Lab Results: I have reviewed the past 24 hour labs Labs: Laboratory Results - last 24 hr 05/09/17 05/09/17 05/09/17 07:16 12:09 13:46 ABG pH ABG pCO2 ABG pO2 ABG HCO3 ABG Total CO2 ABG O2 Saturation ABG Base Excess Sodium 137 Potassium 3.8 Chloride 95 L Carbon Dioxide 34 H Anion Gap 11.8 BUN 6 L Creatinine 0.30 L GFR Calculation 202 BUN/Creatinine Ratio 20.00 Glucose 116 H POC Glucose 121 H Calculated Osmolality 271.8 L Calcium 8.0 L Phosphorus Magnesium Prealbumin Theophylline 7.4 L 05/09/17 05/10/17 05/10/17 18:17 00:12 03:26 ABG pH 7.519 H ABG pCO2 45.2 ABG pO2 80.3 ABG HCO3 36.1 H ABG Total CO2 33.3 H ABG O2 Saturation 97.1 ABG Base Excess 12.4 H Sodium Potassium Chloride Carbon Dioxide Anion Gap BUN Creatinine GFR Calculation BUN/Creatinine Ratio Glucose POC Glucose 142 H 147 H Calculated Osmolality Calcium Phosphorus Magnesium Prealbumin Theophylline 05/10/17 05/10/17 03:41 05:19 ABG pH ABG pCO2 ABG pO2 ABG HCO3 ABG Total CO2 ABG O2 Saturation ABG Base Excess Sodium 140 Potassium 2.9 L Chloride 102 Carbon Dioxide 34 H Anion Gap 6.9 BUN 3 L Creatinine 0.20 L GFR Calculation 239 BUN/Creatinine Ratio 15.00 Glucose 122 H POC Glucose 118 H Calculated Osmolality 276.4 Calcium 7.2 L Phosphorus 1.9 L Magnesium 1.6 L Prealbumin 6.8 L Theophylline - EKG EKG results: interpreted by me EKG shows: sinus rhythm Quality Measures - Stroke Symptom Onset Unknown: No <Dana Rand - Last Filed: 05/10/17 12:07> Assessment and Plan (1) Paroxysmal atrial fibrillation Status: Acute Current Visit: Yes (2) Paroxysmal atrial flutter Status: Acute Current Visit: Yes (3) History of coronary artery disease Status: Chronic Current Visit: Yes (4) Chronic constipation Status: Acute Current Visit: Yes (5) Macrocytic anemia Status: Acute Current Visit: Yes (6) Respiratory failure Status: Acute Current Visit: Yes Qualifiers: Chronicity: acute on chronic (7) High-grade atrioventricular block Status: Resolved Current Visit: No Cardiology - PN: Subj Interval history: Mr. Fischer converted back to normal sinus rhythm. Yesterday after interrogation of his device was found that he has a very low atrial fibrillation burden. We turned the atrial therapies on he is now almost 3 months out from device implant. Hopefully we can maintain sinus rhythm with atrial preference pacing and algorithms provided by [employer]. He is not a very good anticoagulation candidate given his comorbidities. His atrial fibrillation burden has correlated directly with his lung disease and this is most likely the precipitating factor and it this time I think it is best that we not proceed with anticoagulation continue AV wm blocking agents with beta- blockers and Cardizem as tolerated with preserved ejection fraction nothing further to add at this time and I will sign off. Please call if needed. I discussed briefly with Dr. Hopkins his primary cloth shrinking tester about the change in his pacer settings. Exam (Progress Note) - Constitutional Vitals: Period Temp Pulse Resp BP Sys/Ivey Pulse Ox Last 24 Hr 97.9 F-98.8 F 79-101 12-27 84-154/63-92 88-100 Exam: Physical exam as above patient is in sinus rhythm. His rates about 95 when I examined him. Result/EKG - Labs CBC & BMP: 05/09/17 04:15 05/10/17 03:41 Labs: Laboratory Results - last 24 hr 05/09/17 05/09/17 05/09/17 12:09 13:46 18:17 ABG pH ABG pCO2 ABG pO2 ABG HCO3 ABG Total CO2 ABG O2 Saturation ABG Base Excess Sodium 137 Potassium 3.8 Chloride 95 L Carbon Dioxide 34 H Anion Gap 11.8 BUN 6 L Creatinine 0.30 L GFR Calculation 202 BUN/Creatinine Ratio 20.00 Glucose 116 H POC Glucose 121 H 142 H Calculated Osmolality 271.8 L Calcium 8.0 L Phosphorus Magnesium Prealbumin 05/10/17 05/10/17 05/10/17 00:12 03:26 03:41 ABG pH 7.519 H ABG pCO2 45.2 ABG pO2 80.3 ABG HCO3 36.1 H ABG Total CO2 33.3 H ABG O2 Saturation 97.1 ABG Base Excess 12.4 H Sodium 140 Potassium 2.9 L Chloride 102 Carbon Dioxide 34 H Anion Gap 6.9 BUN 3 L Creatinine 0.20 L GFR Calculation 239 BUN/Creatinine Ratio 15.00 Glucose 122 H POC Glucose 147 H Calculated Osmolality 276.4 Calcium 7.2 L Phosphorus 1.9 L Magnesium 1.6 L Prealbumin 6.8 L 05/10/17 05/10/17 05:19 11:31 ABG pH ABG pCO2 ABG pO2 ABG HCO3 ABG Total CO2 ABG O2 Saturation ABG Base Excess Sodium Potassium Chloride Carbon Dioxide Anion Gap BUN Creatinine GFR Calculation BUN/Creatinine Ratio Glucose POC Glucose 118 H 159 H Calculated Osmolality Calcium Phosphorus Magnesium Prealbumin
[2017-05-10] MEDS ORDERED: BISOPROLOL 5 MG TABLET PO SCH (10:30)
[2017-05-10] MEDS ORDERED: BISOPROLOL 5 MG TABLET PO ONE (10:30)
[2017-05-10] MEDS: AMINOPHYLLINE 500 MG in SODIUM CHLORIDE 0.9% 480 ML IV SCH (10:31)
[2017-05-10] MEDS: LINACLOTIDE 145 MCG CAPSULE PO SCH (10:55)
[2017-05-10] MEDS: metOLazone 5 MG TABLET PO SCH (10:56)
[2017-05-10] MEDS: POTASSIUM CHLORIDE 20 MEQ PACK PO SCH (10:58)
--- NOTE | 2017-05-10 10:58 | Pulmonology Progress Note ---
Pulmonary - PN: Subj Interval history: Mr. Fischer is a 66-year-old white male who we saw in initial pulmonary consultation on 05/04/2017. At that time, our impressions were: #1: Acute altered mental status most likely secondary to #2 but consider other causes #2: Acute urinary tract infection #3: Ankylosing spondylitis with probable spinal stenosis. Anatomy and pain limited mobility. #4: Peripheral sensory neuropathy. His symptoms have gradually worsened over time. #5: Chronic venous stasis of the lower extremities. #6: Vitamin B deficiency. #7: Past history of tobacco abuse #8: COPD/asthma #9: Past history of high blood pressure #10: Hypothyroidism #11: Bilateral pleural effusions of unknown etiology #12: Dual-chamber cardiac pacemaker #13: History of marijuana use #14: History of compression fractures with chronic pain. Now under the care of Dr. Patel. #15: See past history 05/05/2017. Patient was seen today along with his . The patient is awake, alert, and oriented this morning. His theophylline was discontinued per the 's request yesterday. Of note, his theophylline level was 7.9. He has been seen in pain management consultation with Dr. Patel. His note has been reviewed. We appreciate his assistance. He will be out of town for the next few days, but upon his return we will begin tapering the patient's pain medications as per his note. Patient's lower extremities continue to be edematous. We will give Mr. Keith a one-time dose of IV Lasix. We will start Zaroxolyn 5 mg p.o. daily and KCl 20 mEq daily. Daily BMP/magnesium has been ordered. The patient's echocardiogram this admission as read by Dr. Vega showed an estimated EF of 60%, approximately 1+ mitral and aortic regurgitation , 1-2+ tricuspid regurgitation with a right ventricular systolic pressure of 60 mmHg plus the right atrial pressure suggesting severe pulmonary hypertension. This is a significant change from the echocardiogram done 04/12/[address] Nova which showed an EF estimated at 60%, grade 1 diastolic dysfunction, normal to mildly elevated filling pressures, mild aortic valve regurgitation, moderate ventricular hypertrophy with no demonstrable increase in right-sided pressure, and tricuspid regurgitation velocity suggesting a right ventricular systolic pressure of 23 mmHg plus the right atrial pressure. On chest x-ray today, the pleural effusion is improved. This patient has great difficulty laying flat given his ankylosing spondylitis, so we will begin diuresing him with his Zaroxolyn and see if his pleural effusion will resolve rather than proceed with CT PE protocol at this time. We will repeat a chest x-ray on Monday. Doppler venograms showed no evidence of dizziness thrombophlebitis. Abdominal ultrasound showed no ascites. Medications have been reviewed. Labs have been reviewed. White count is 5900 with a normal differential; H&H 10.7/33.6; platelet count 172,000; creatinine 0.40, BUN 8, electrolytes are normal; magnesium 2.5 Microbiology has been reviewed. Urine culture has grown E. coli. He is on Fortaz and Levaquin. Urine drug screen was positive for benzodiazepines and cannabinoids 05/08/2017 during the weekend the patient deteriorated. He developed a severe acidosis and a markedly elevated PCO2 and required movement to CCU along with intubation mechanical ventilation. He is still on the ventilator.His chest x- ray shows bibasilar infiltrates and some faint infiltrates in the right upper lung. Still has a small right pleural effusion. This is unexpected and I have to wonder about aspiration. We will plan to evaluate with fiberoptic bronchoscopy in the morning. His only positive cultures E. coli from his urine. ABGs have been ordered but are pending. Potassium is low at 3.0 and the patient will be placed on protocol. Natruretic peptide is 92. H&H is 10.8/ 31.9. White count is 8674.4 segs 7 lymphs and 16.1 monocytes. EKG shows no acute changes. At this point I am not entirely clear why the patient deteriorated so rapidly. 05/09/2017. Today's chest x-ray is better. Patient has cardiomegaly. He has bilateral alveolar and interstitial changes and he has a small to moderate size right pleural effusion. He is alert and oriented and can cooperate. Earlier today I evaluated patient with fiberoptic bronchoscopy. See the report. He had some mild erosive slightly friable bronchitis in the right lower lung that had the appearance of a recent pneumonia. This may be the etiology of his pleural effusion. The patient had only a small amount of sputum and both bronchial trees. I did not see any food or gastric content. Today the patient will go to stage II of his weaning protocol. The only positive culture is E. coli from the urine. ABGs on mechanical ventilation FiO2 40% shows a pH of 7.52 , PCO2 41.4, PO2 of 84.1 and a bicarb of 32.8. H&H is gradually dropping to 10.3/29.3. White count is 8276 segs and platelets are 141,000. Potassium is low at 3.2 and is being replaced. Theophylline level is 7.4. Last night the patient had atrial fib that required Cardizem and amiodarone. The patient's most recent echocardiogram (05/04/2017) showed pulmonary artery pressure above 70 whereas a month or so ago his pulmonary artery pressures were normal. We will repeat this today. Cardiology is seeing the patient in the past and placed cardiac pacemaker. Will last for follow-up evaluation. Also we have asked that his magnesium be checked. 05/10/2017. Patient's on stage III of the weaning protocol. Because of his anatomy chest x-ray is difficult to interpret. He has old pleural scarring on the right where he has had a previous pleural stripping. He has persistent pleural effusion on the right. Etiology of this is undetermined. His echocardiogram does not support congestive heart failure. He has no ascites on ultrasound of the abdomen. I discussed the possibility of thoracentesis by interventional radiologist with the and she is agreeable. We should send pleural fluid specimens for cytology, H&H, white blood cell count with differential, total protein, SGOT, LDH, Gram stain with bacterial culture, AFB stains and cultures. Exam (Progress Note) - Constitutional Vitals: Period Temp Pulse Resp BP Sys/Ivey Pulse Ox Last 24 Hr 5 F-98.0 F 83-105 18-28 118-166/66-83 88-99 Exam: Neurologic. . Alert. Oriented. He cooperates when he is awake Chest. Loose large airway congestion Heart no gallop Abdomen is obese, but nontender and nondistended; bowel sounds are positive 4 Extremities with nothing to suggest acute deep venous thrombophlebitis; bilateral pedal and pretibial edema; chronic venous stasis changes Neck. Also normal curvature secondary to ankylosing spondylitis. Lymphatics. No submandibular cervical supraclavicular or epitrochlear adenopathy. The remainder the exam is noncontributory Plan. 05/08/2007 1. Fiberoptic bronchoscopy in the morning 2. Mechanical ventilation weaning protocol and physical therapy protocol 3. See today's note, above 05/09/2017. 1. Fiberoptic bronchoscopy showed no evidence of aspiration see report 2. Stage II to weaning protocol 3. Repeat echocardiogram with attention to recent onset of pulmonary hypertension 4. Replace potassium 5. Check magnesium 6. Daily chest x-ray ABGs and lab 7. Watch slow decline of H&H 8. Check bronchoscopy specimens 9. Cardiology consult 05/10/2017. 1. See today's note, above 2. Appreciate cardiology consultation 3. Fiberoptic bronchoscopy in the morning 4. Consult interventional radiologist for thoracentesis. Because of the patient's ankylosing spondylitis and anatomy of this will be difficult. See today's note above concerning studies when needed. This was discussed with the and she is agreeable Exam (Progress Note) - Constitutional Vitals: Period Temp Pulse Resp BP Sys/Ivey Pulse Ox Last 24 Hr 97.9 F-98.8 F 79-101 12-27 84-154/63-92 88-100 Results - Labs CBC & BMP: 05/09/17 04:15 05/10/17 03:41
[2017-05-10] MEDS: ASCORBIC ACID 500 MG TABLET PO SCH (10:59)
[2017-05-10] MEDS: THIAMINE 100 MG TABLET PO SCH (11:01)
[2017-05-10] MEDS: IMIPRAMINE 25 MG TABLET PO SCH (11:02)
[2017-05-10] MEDS: PANTOPRAZOLE 40 MG TABLET PO SCH (11:02)
[2017-05-10] MEDS: POLYETHYLENE GLYCOL POWDER 17 GM PACK PO SCH (11:03)
[2017-05-10] MEDS: fentaNYL 12 MCG/HR PATCH TRANSDERM SCH (11:05)
[2017-05-10] MEDS: miSOPROStol 200 MCG TABLET PO SCH (11:05)
[2017-05-10] MEDS: BISOPROLOL 5 MG TABLET PO SCH (11:07)
[2017-05-10] MEDS: LIDOCAINE 5% PATCH TRANSDERM SCH (11:08)
[2017-05-10] MEDS: FOLIC ACID 1 MG TABLET PO SCH (11:09)
[2017-05-10] MEDS: MULTIVITAMIN (CENTRUM) TABLET PO SCH (11:09)
--- NOTE | 2017-05-10 11:11 | Hospitalist Progress Note ---
Assessment and Plan (1) Ankylosing spondylitis Problem details: Spinal pain secondary to ankylosing spondylitis Status: Chronic Assessment and plan: 1)respiratory acidosis- on vent day 4. He has started CPAP trials. Bronch yesterday morning with collapsible airways, no sign of aspiration or sig secretions. Current plan is to minimize his pain medicine dramatically and Dr Patel is working toward that goal as his narcotics and marijuana may be contributing to his resp problems. He has been on ceftaz and levaquin day 7. He has a pleural effusion and will have thoraentesis in IR today. Echo does not support diagnosis of CHF as cause of effusion. 2)UTI- day 6 of antibiotics- may be able to stop tomorrow. 3)pleural effusion- persistent. 4)ankylosing spondylitis with chronic pain from spinal stenosis 5)hypothyroidism 6)COPD 7)severe pulmonary HTN- outlier finding on echo on this admission- was much lower on recent echo. reeval. 8)hypokalemia- given a combination of oral and IV replacement yesterday with increase in potassium yesterday afternoon, down again this morning. Repeat. also replace phosphorus, mag today. 9)afib/flutter- Dr Ramírez consulting cardiology. rate in 90s this morning. On IV dilt drip. Defer anticoagulation plan to cardiology. He has had anemia. His rate and rhythm may improve with replacement of his potassium. Mg low this morning. 10)GI- trouble swallowing, dysmotility. Emycin started per Dr Reddy. Current Visit: No Qualifiers: Ankylosing spondylitis location: multiple sites in spine Qualified Code(s) : M45.0 - Ankylosing spondylitis of multiple sites in spine (2) Lower extremity edema Status: Acute Current Visit: No (3) Hypokalemia Status: Acute Current Visit: No (4) Chronic venous stasis dermatitis Status: Acute Current Visit: No (5) COPD (chronic obstructive pulmonary disease) Status: Chronic Current Visit: No (6) HTN (hypertension) Status: Chronic Current Visit: No (7) Urinary tract infection Status: Acute Current Visit: No (8) Respiratory failure Status: Acute Current Visit: Yes Qualifiers: Chronicity: acute on chronic Hospitalist: Subjective Interval history: Mr Fischer is stable on the vent. No events overnight. He is doing well on CPAP trials. He will have thoracentesis in IR today. Echo with 60%EF and severe pulmonary HTN, new compared to previous echos. Low afib/flutter burden at pacer interrogation. Exam - Constitutional Vitals: Period Temp Pulse Resp BP Sys/Ivey Pulse Ox Last 24 Hr 97.9 F-98.8 F 79-101 12-27 84-154/63-92 88-100 General appearance: no acute distress, over weight - Eye Eye exam: Present: EOMI. Absent: scleral icterus - Respiratory Respiratory exam: Present: clear to auscultation bilaterally (anteror easley) - Cardiovascular Cardiovascular exam: Present: regular rate and rhythm - GI/Abdominal GI/Abdominal exam: Present: normal bowel sounds, soft. Absent: tenderness - Extremities Exam Extremities exam: Present: edema (3+ LE edema worse on right, with erythema of chronic venous stasis.) Results - Labs CBC & BMP: 05/09/17 04:15 05/10/17 03:41 Lab Results: I have reviewed the past 24 hour labs Quality Measures - Stroke Symptom Onset Unknown: No
[2017-05-10] MEDS: LEVOFLOXACIN INJ 500 MG in PREMIX 1 EACH IV SCH (11:14)
[2017-05-10] MEDS ORDERED: MAGNESIUM SULF RIDER 4 GM in PREMIX 1 EACH IV ONE (11:15)
[2017-05-10] MEDS: POTASSIUM CHLORIDE 20 MEQ TABLET PO SCH ×3 (12:30→22:19)
[2017-05-10] MEDS: POTASSIUM PHOS/SOD PHOS 250 MG TABLET PO SCH ×3 (12:31→22:20)
--- NOTE | 2017-05-10 14:11 | Gastrointestinal Progress Note ---
Assessment and Plan (1) Dysphagia, pharyngoesophageal Status: Acute Assessment and plan: This patient may have reflux in association with his chronic inability to change his position and remain upright. There may be reflux induced by a hypomotility the GI tract as well. It is possible that esophageal stricturing may be occurring as a result of impingement on the esophagus by bridging osteophytes from his fairly severe ankylosing spondylitis as well. I will have the patient undergo a barium swallow to evaluate this tomorrow and will plan on doing upper endoscopy with potential dilation to follow on Monday morning. I will leave him off of his anticoagulation for at least one day prior to the endoscopy to occur on Monday. In the interim we will go ahead and place the patient on pantoprazole IV twice daily to see if this helps out with his appetite. Will also add some medications colonic flow and decrease his bloating by getting rid of the lactulose. Risks of the above endoscopy include but are not limited to: Bleeding, infection, perforation, cardiac and pulmonary compromise. These were discussed with the patient, his , and son and they agreed to proceed with upper endoscopy to occur on Monday. 05/06/17--the patient's barium swallow fails to show any impingement upon the esophagus, overall the esophagus was narrowed there was no evidence of cancer nor dominant stricture noted. He is remaining off of anticoagulation in order to proceed with upper endoscopy to occur on Monday. I anticipate being able to do his dilation at that time. He is somewhat less bloated after discontinuing the lactulose. 05/07/17--We will check the patient's ammonia level since he was previously on lactulose and this has now been discontinued using MiraLAX and in its lieu. 05/08/17--findings at upper endoscopy today were as follows: No gross evidence of dominant stricture however the patient's upper esophagus did have a slight narrowing that was dilated to [address] [place] by single pass Savary dilator with replacement of NG tube at the end of the case endoscopically. There was a sizable hiatal hernia noted and LA class B esophagitis. Stomach was J-shaped and had a diffuse gastritis noted, biopsies were taken, a dilated duodenum was also noted with biopsies taken here as well for sprue. Suggest holding off on restarting tube feeds until after the bronchoscopy is completed tomorrow. Will initiate erythromycin via the NG tube now that this is confirmed in the stomach endoscopically. 05/09/17--The bronchoscopy is been completed and the patient is now getting tube feeds at 35 mL/h. We will continue to watch and see what his residuals look like although this will be harder check with a Dobbhoff feeding tube. He remains on erythromycin 250 mg every 6 hours to help with his motility. He is starting to step up his diarrhea and I will ramp down on his MiraLAX as a result. 05/10/17--Doing well on the erythromycin. Patient has minimal residuals on 60 mL /h. Residuals are quite low at this point. Stools are doing adequately--one bowel movement a day and of the MiraLAX is been cut back. We will need to continue to watch this. Current Visit: Yes (2) Abnormal weight loss Status: Acute Assessment and plan: For the past year the patient states that his weight has dropped from 275 pounds to 229 pounds. He states that while some of this is volitional some of it is certainly not and he is only been able to eat about 10% of his trays while here. He does not have the sensation of reflux. His difficulty with swallowing is overcome by chewing his food extremely carefully and following bites with clear liquids in between. This only occurs with solids and is highly suspicious for a physical stricture versus cancer. Again a barium swallow is being arranged for tomorrow--not only will this look for physical stricture but also assess for spinal impingement and dysmotility at the same time. 05/06/17--No new complaints, awaiting upper endoscopy Monday. 05/07/17--we will arrange for upper endoscopy Monday, tomorrow in order to look for evidence of the cause for his weight loss and consider doing dilation at the same time 05/08/17--We Will see how he is able to swallow later after he is off the ventilator. The patient has no gross evidence of an obstruction but does have dilation of the duodenum possibly pointing to a GI hypomotility. 05/09/17--Tube feedings been started, observe residuals. This patient will have a tendency towards ileus, hence the start of the erythromycin. 05/10/17--Continue tube feeds, observe for residuals, continue erythromycin. Current Visit: Yes (3) Macrocytic anemia Status: Acute Assessment and plan: May be related to B12 or folate deficiency versus alcohol intake versus myelodysplastic syndrome. His platelet level is normal I do not believe this is cirrhosis-related. 05/07/17--B12 and folate levels were completely normal. This leaves myelodysplastic syndrome versus cirrhosis is potential causes for the patient's macrocytic chronic anemia 05/08/17--as noted above 05/09/17--Patient does have some mild upper GI bleeding, will continue to observe. 05/10/17--as noted above--repeat CBC not checked yet. Current Visit: Yes (4) Chronic constipation Status: Acute Assessment and plan: This patient does have chronic constipation possibly related to his intake of hydrocodone/acetaminophen as well as his low-dose fentanyl patch and poor mobility possibly poor hydration. She has been given lactulose which is probably adding to his bloating and I have discontinued this medication. His has had great success with enemas and magnesium citrate at home. I am going to see if we can get by using Linzess in addition to MiraLAX instead. Orders have been written we need to observe and see what effect he has with these medications. Certainly would like to stop the MiraLAX first if this ends up being a brisk response to the Linzess. 05/06/17--The patient just had a barium study done today, he is getting his MiraLAX, if he is not a had a bowel movement today at some point we might consider use of another dose of magnesium citrate tomorrow to help him flush out the barium. He has a history of chronic constipation. 05/07/17--observing for present time. 05/08/17--Continue observation, doubt that he will do much stooling until he is starting back on tube feeds. 05/09/17--The patient is doing better with the MiraLAX twice daily and erythromycin. At this point given his diarrhea will cut back to once a day with MiraLAX. 05/10/17--observe constipation now that MiraLAX is down to 1 per day and Linzess is continuing. Current Visit: Yes Gastroenterology - PN: Subj Interval history: The patient's tube feeds are up to goal rate through the Dobbhoff at 60 mL/h. He seems to be doing well with this stating to his that he is hungry/ thirsty by writing this down. The dilation was completed and hopefully the patient will be able to swallow better once he is extubated. If he is doing well with his residuals tomorrow will likely sign off of the case. He continues on erythromycin IV but this might be able to be discontinued once he is extubated. Exam (Progress Note) - Constitutional Vitals: Period Temp Pulse Resp BP Sys/Ivey Pulse Ox Last 24 Hr 97.9 F-98.8 F 81-107 12-27 84-154/63-92 88-100 General appearance: mild distress - Head Head exam: Present: normocephalic - Eye Eye exam: Present: EOMI - Respiratory Respiratory exam: Present: decreased breath sounds (In the bases), rhonchi. Absent: stridor, wheezes - Cardiovascular Cardiovascular exam: Present: regular rate and rhythm - GI/Abdominal GI/Abdominal exam: Present: normal bowel sounds, distended, soft. Absent: tenderness, rebound - Extremities Exam Extremities exam: Present: edema - Neurological Exam Neurological exam: Present: alert, altered (Unable to completely assess as the patient is on the ventilator) - Psychiatric Psychiatric exam: Present: other (Unable to assess on the ventilator) - Skin Skin exam: Present: warm Results - Labs CBC & BMP: 05/09/17 04:15 05/10/17 03:41
[2017-05-10 14:52] LABS: Calcium 8.2 MG/DL (8.5-10.1); Magnesium 2.1 MG/DL (1.8-2.4); Osmolality,Calculated 275.5 MOS/KG (273-304); Potassium 3.2 MMOL/L (3.5-5.1)
--- NOTE | 2017-05-10 16:38 | General Surgery Consult Note ---
Assessment and Plan - Time spent with patient Time spent with patient: Greater than 30 minutes (1) Chronic venous stasis dermatitis Status: Acute Assessment and plan: 05/10/2017. Chronic bilateral lower extremity venous stasis disease with congestion and slight erythema on the right. He also has some blistering and likely ulceration between the right third and fourth and right fourth and fifth webspaces. We will plan to go ahead and initiate some local care on these areas as well as offload the heels. He has extreme risk of breakdown, given his size and the previous history of venous stasis. It is less likely that this represents a true cellulitis, although we will watch the erythematous change on the right lower leg gaiter area. Once he is extubated and able to sit up, with his legs dependent he will require very vigilant compression. Current Visit: No History of Present Illness Chief complaint: Reddened area to sacrum; BLE swelling with chronic venous hypertension History of present illness: Mr. Fischer is a 66 year old male well-known to Dr. Odell's service for treatment of persistent bilateral lower extremity edema secondary to chronic venous stasis disease with swelling. This is been fairly well controlled with [place] wraps since he has been at the SN[facility] but he was recently admitted with mental status changes. Since admission, he has required emergency intubation is now on the ventilator. His lower extremity edema is somewhat improved, but now he has skin changes which have worsened and thought to be related to his edema. Dr. Odell has been consulted to follow his lower extremity edema and also pressure areas on the coccyx/sacral area. Home Medications Medication Instructions Recorded Confirmed Type Imipramine HCl 25 mg PO DAILY 02/20/17 05/03/17 History Levothyroxine Tab [Synthroid Tab] 100 mcg PO DAILY 02/20/17 05/03/17 History Theophylline ER Tab 300 mg PO Q12H 02/20/17 05/03/17 History Bisoprolol [Zebeta] 5 mg PO DAILY tablet 03/02/17 05/03/17 Rx Folic Acid Tab 1 mg PO DAILY tablet 03/02/17 05/03/17 Rx Lidocaine 5% Patch [Lidoderm 5% 1 patch TRANSDERM DAILY patch 03/02/17 Rx Patch] Multivitamin (Centrum) [Centrum 1 tablet PO DAILY tablet 03/02/17 05/03/17 Rx Tab] Thiamine Tab [Vitamin B1 Tab] 100 mg PO DAILY tablet 03/02/17 05/03/17 Rx miSOPROStol [Cytotec] 200 mcg PO DAILY tablet 03/02/17 05/03/17 Rx Albuterol Sulfate [Albuterol Neb] 2.5 mg RESP TX TID 04/11/17 05/03/17 History Ascorbic Acid Tab [Vitamin C Tab] 500 mg PO DAILY 04/11/17 05/03/17 History Bisacodyl Tab [Dulcolax Tab] 5 mg PO DAILY PRN 04/11/17 05/03/17 History Lactulose Liquid [Chronulac] 30 ml PO BID 04/11/17 05/03/17 History HYDROcodone/ACETAMIN 5-325 [Weatherly 1 tablet PO Q8H PRN #90 tablet 04/19/17 Rx 5-325] Skin Healing Oint (Aquaphor) 1 applic TOP PRN PRN applic 04/19/17 05/03/17 Rx [Aquaphor] Clorazepate [Tranxene] 3.75 mg PO BEDTIME 05/04/17 05/04/17 History fentaNYL 12 MCG/HR PATCH 1 patch TRANSDERM Q3DAY 05/04/17 05/04/17 History [Duragesic 12 Patch] Allergies Allergy/AdvReac Type Severity Reaction Status Date / Time codeine Allergy Unknown UNRESPONSIV Verified 04/12/17 00:48 E acetaminophen [From Percocet] Allergy Verified 04/12/17 00:48 escitalopram [From Lexapro] Allergy Verified 04/12/17 00:48 gabapentin [From Neurontin] Allergy Verified 04/12/17 00:48 Hydromorphone [From Dilaudid] Allergy Verified 04/12/17 00:48 Oxycodone [From Percocet] Allergy Verified 04/12/17 00:48 Medical,Surgical,& Family Hx - Medical History Cardio: History of: CAD, Hypertension, Pacemaker (Dual-chamber placed in February [address] Clemens) No history of: MN, PVD Psychological: History of: Anxiety Disorders, Depression Neurology: History of: Vertigo HEENT: History of: Eye Problem (WEARS GLASSES, NEAR SIGHTED, CATARACT LEFT EYE) Endocrine: History of: Thyroid Disorder No history of: Diabetes Mellitus (IDDM), Diabetes Mellitus (NIDDM), Dyslipidemia Respiratory: History of: Bronchitis, COPD, Intubation, Pulmonary Hypertension ( Likely secondary to COPD), Pneumonia Renal: No history of: Renal Problems Genitourinary: History of: Prostate Problems (PROSTATE CA) Gastrointestinal: History of: Gastrointestinal Bleed, Hemorrhoids Musculoskeletal: History of: Back/Neck Problems, Degenerative Disk Disease, Herniated Disk, Musculoskeletal Problems (Ankylosing spondylitis) Hematology: No history of: Anemia Other: History of: Cancer (prostate ca), Miscellaneous Medical Problems ( ankylosing spondylitis) - Surgical History Cardiac Surgeries: Sugical HX of: Cardiac Catheterization Patient Denies: Femoral-Popliteal Bypass Graft, Cardiac Surgery, Carotid Endarterectomy, Internal Defibrillator, Vascular Access Devices Thoracic Surgeries: Patient denies;: Organ Transplant Neurologic Surgeries: Patient denies: Neurologic Surgery HEENT Surgeries: Surgical HX of: Tonsilectomy & Adenoidectomy Patient denies: Carotid Endarterectomy Abdominal Surgeries: Patient denies: Abdominal Surgery, Splenectomy Reproductive Surgeries: Surgical HX of;: Genitourinary Surgery, Prostate Surgery (PROSTATECTOMY) Orthopedic Surgeries: Surgical HX of;: Orthopedic Surgery (RIGHT ANKLE FRACTURE) - Family History Family History: Reports;: Family Cancer (FATHER (TESTICULAR CA)), Family Diabetes (FATHER), Family Heart Disease (MOTHER), Family Hypertension - Social History Smoking Status: Former smoker Frequency of Alcohol Use: None Type of Drug Use: None ROS unobtainable: due to endotracheal tube Exam - Constitutional Vitals: Period Temp Pulse Resp BP Sys/Ivey Pulse Ox Last 24 Hr 97.9 F-98.8 F 81-107 12-27 84-154/63-92 88-100 General appearance: other (Patient is sedated from the ventilator.) - Head Head exam: Present: normocephalic - ENT Mouth exam: Present: dry mucosa - Respiratory Respiratory exam: Present: rhonchi - Cardiovascular Cardiovascular exam: Present: RRR, tachycardia, other (Hypotensive;) - GI/Abdominal GI/Abdominal exam: Present: other (Obese slightly distended with hypoactive bowel sounds. No guarding or rebound tenderness that I can tell; he is sedated. At the suprapubic area is a 2 x 1.5 cm raised pedunculated thickened skin area that is consistent with a large seborrheic keratosis or possibly hyperkeratotic skin lesion. Less likely would be keratoacanthoma. He has similar hyperkeratotic skin about the base of the penis as well. None of these is draining or red or irritated.) - Extremities Exam Extremities exam: Present: other (Bilateral lower extremity pitting edema, right greater than left. He has slightly resolving erythematous change about the gaiter area of the right lower leg. This is not fluctuant or warm to touch. His pulses are palpable with difficulty, secondary to the edema. Toes are blanchable and warm to touch. He does have blistering between the third and fourth and fourth and fifth web spaces on the right toes. There is also a small vesicular area approximately 1 x 1 cm on the medial aspect of the right heel. None of these are in direct pressure areas, which makes me believe these are more related to his edema and pressure change. The left leg shows chronic venous stasis changes without any skin breakdown or irritation. His edema is actually less than on his previous visits. His heel show no signs of pressure changes or skin breakdown at this point.) - Back Exam Back exam: Present: other (To the left of the coccyx is a 3 x 2 cm slightly indurated minimally reddened area. This does not have any skin breech, no tenderness, no flexion with. It is blanchable and not warm to touch. The skin over this area is slightly thickened but shows no sign of breakdown. This has been present on his previous admissions, and has not progressed to any type of abscess or breakdown, although it does appear to be very susceptible to pressure change.) - Skin Skin exam: Present: other (The remainder of his skin pressure points do not show any evidence of breakdown at this visit.) Quality Measures - Stroke Symptom Onset Unknown: No Results - Labs CBC & BMP: 05/09/17 04:15 05/10/17 14:05 Lab Results: I have reviewed the past 24 hour labs
--- NOTE | 2017-05-10 17:02 | XRay Report ---
XR chest post procedure Indication: Thoracentesis. Chest one view: Comparison earlier today shows decreased size of right pleural effusion. No pneumothorax seen. Left pleural effusion is stable. Lines and tubes are stable. Impression: No pneumothorax after right thoracentesis. PROCEDURE INTERPRETED AT [facility] DEPARTMENT OF RADIOLOGY Final Report Signed by: Brennan Quiles M.D.
--- NOTE | 2017-05-10 17:07 | Post Interventional Procedure ---
Pre-op diagnosis: bilateral pleural effusions, intubated Post-op diagnosis: same Procedure: u/s right thoracentesis Contrast: none Flouroscopy: none Radiologist: Francis Bernardo Anesthesia: local Specimens: none sent Estimated blood loss: none Complications: none Condition: stable Description/Findings: 1000 mL serous straw colored fluid removed and patient tolerated well Assessment and Plan - Time spent with patient Time spent with patient: Less than 30 minutes
--- NOTE | 2017-05-10 17:10 | Ultrasound Report ---
Exam: ULTRASOUND-GUIDED THORACENTESIS Clinical history: History of bilateral pleural effusions, shortness of breath, intubated. Physician: Dr. Bernardo. Procedure: Informed consent was obtained prior to the procedure. A formal timeout was performed. Maximum sterile barrier technique was used. A right pleural effusion was identified with ultrasound. The right posterior chest was prepped and draped in sterile fashion. 1% lidocaine was used to anesthetize the skin and subcutaneous tissues. Under sonographic guidance, a 6 Albanian safety centesis needle and catheter were advanced into the effusion using trocar technique. A captured sonographic image demonstrates positioning of the needle within the targeted pleural fluid. The needle was removed. Through the catheter, we obtained a total of 1000 cc of serous pleural fluid. The catheter was removed. A bandage was placed at the puncture site. The patient tolerated the procedure well. Chest radiograph is pending. Impression: 1. Technically successful ultrasound guided right thoracentesis as detailed above. 2. Post procedure chest radiograph is pending. PROCEDURE INTERPRETED AT [facility] DEPARTMENT OF RADIOLOGY Final Report Signed by: Francis Bernardo
[2017-05-10 18:16] LABS: Lymphocytes,Pleural Fluid 74 %; Monocytes,Pleural Fluid 4 %; Neutrophils,Pleural Fluid 22 %
--- NOTE | 2017-05-10 18:16 | Pathology Report from [facility] ---
[facility] [place] ACCESSION # : [id number] PATIENT NAME : Royer Fischer ORDERING DR : JANIE NASH MD CLINICAL HX: Respiratory failure POST-OP DX: Same SPECIMEN INFO: Washing- Bronchial, bilateral - 10 mls milky johnson, slightly mucoid CLASS: I CLASS COMMENTS: Benign respiratory cells with marked acute inflammationCELL BLOCK: Same CLASS LEGEND: CLASS 0 Material inadequate for diagnosis because of (see comment) CLASS I Absence of atypical or abnormal cells CLASS II Atypical Cytology but no evidence of malignancy CLASS III Cytology suggestive of but not conclusive for malignancy CLASS IV Cytology strongly suggestive of malignancy CLASS V Cytology conclusive for malignancy COLLECTED DATE: 05/09/2017 [facility] REPORT DATE: 05/10/2017 ELECTRONICALLY SIGNED BY: Gela Mcqueen M.D. 05/10/2017 - 9:24:03 ANABEL
[2017-05-10 18:19] LABS: RBC,Pleural Fluid 1145 T/CUMM
[2017-05-10] MEDS: CLORAZEPATE 3.75 MG TABLET PO SCH (22:19)
[2017-05-11] MEDS: ALBUTEROL/IPRATROPIUM 3 ML NEB RESP TX SCH ×4 (00:24→19:07)
[2017-05-11] MEDS ORDERED: POTASSIUM CHLORIDE 20 MEQ/15 ML UDCUP NG ONE (01:00)
[2017-05-11] MEDS: POTASSIUM CHLORIDE 20 MEQ TABLET PO SCH (02:32)
[2017-05-11] MEDS: DILTIAZEM INJ 100 MG in SODIUM CHLORIDE 0.9% 100 ML IV SCH ×2 (02:33→21:18)
[2017-05-11] MEDS: PROPOFOL 1,000 MG/100 ML BOTTLE IV SCH ×4 (02:36→20:20)
[2017-05-11 03:24] LABS: ABG HCO3 35.8 MMOL/L (20-26); ABG Oxygen Saturation 99.3 % (95-100); ABG PH 7.533 (7.35-7.45); ABG TCO2 32.6 MMOL/L (23-27); Allen Test Positive; Pt O2 Delivery Device Ventilator
[2017-05-11] MEDS: ERYTHROMYCIN INJ 250 MG in SODIUM CHLORIDE 0.9% 100 ML IV SCH ×4 (04:35→21:55)
[2017-05-11 04:40] LABS: Basophils % 0.4 % (0.0-0.8); Eosinophils # 0.2 10*3/uL (0.0-0.87); Eosinophils % 2.6 % (0.00-10.9); Hematocrit 30.9 VOL% (42.0-52.0); Hemoglobin 10.1 GM/DL (14.0-18.0); Immature Granulocytes % 1.2 %; Lymphocytes # 0.7 10*3/uL (1.4-4.0); Lymphocytes % 8.6 % (21.2-54.2); Mean Corpuscular HGB Conc 32.7 GM/DL (32-36); Mean Corpuscular Hemoglobin 33 PG (27-34); Mean Platelet Volume 12.3 FL (9.6-12.0); Monocytes # 0.9 10*3/uL (0.11-0.8); Monocytes % 10.5 % (1.7-12.7); Neutrophils # 6.5 10*3/uL (1.4-7.4); Neutrophils % 76.7 % (38.7-73.9); Platelet Count 188 T/CUMM (130-400); Red Blood Count 3.09 MC/CUMM (3.8-5.5); Red Cell Distribution Width 13.7 % (9.3-17.3); White Blood Count 8.4 T/CUMM (4-12)
[2017-05-11 05:05] LABS: Calcium 7.9 MG/DL (8.5-10.1); Magnesium 2.3 MG/DL (1.8-2.4); Osmolality,Calculated 277.4 MOS/KG (273-304); Potassium 3.9 MMOL/L (3.5-5.1)
[2017-05-11] MEDS: ENOXAPARIN 40 MG/0.4 ML SYRINGE SUBCUT SCH (05:41)
[2017-05-11] MEDS: LEVOTHYROXINE 100 MCG TABLET PO SCH (06:13)
[2017-05-11] MEDS: INSULIN LISPRO 100 UNIT/ML SUBCUT SCH ×3 (06:13→17:57)
--- NOTE | 2017-05-11 06:35 | Gastrointestinal Progress Note ---
Assessment and Plan (1) Dysphagia, pharyngoesophageal Status: Acute Assessment and plan: This patient may have reflux in association with his chronic inability to change his position and remain upright. There may be reflux induced by a hypomotility the GI tract as well. It is possible that esophageal stricturing may be occurring as a result of impingement on the esophagus by bridging osteophytes from his fairly severe ankylosing spondylitis as well. I will have the patient undergo a barium swallow to evaluate this tomorrow and will plan on doing upper endoscopy with potential dilation to follow on Monday morning. I will leave him off of his anticoagulation for at least one day prior to the endoscopy to occur on Monday. In the interim we will go ahead and place the patient on pantoprazole IV twice daily to see if this helps out with his appetite. Will also add some medications colonic flow and decrease his bloating by getting rid of the lactulose. Risks of the above endoscopy include but are not limited to: Bleeding, infection, perforation, cardiac and pulmonary compromise. These were discussed with the patient, his , and son and they agreed to proceed with upper endoscopy to occur on Monday. 05/06/17--the patient's barium swallow fails to show any impingement upon the esophagus, overall the esophagus was narrowed there was no evidence of cancer nor dominant stricture noted. He is remaining off of anticoagulation in order to proceed with upper endoscopy to occur on Monday. I anticipate being able to do his dilation at that time. He is somewhat less bloated after discontinuing the lactulose. 05/07/17--We will check the patient's ammonia level since he was previously on lactulose and this has now been discontinued using MiraLAX and in its lieu. 05/08/17--findings at upper endoscopy today were as follows: No gross evidence of dominant stricture however the patient's upper esophagus did have a slight narrowing that was dilated to 57 Lao by single pass Savary dilator with replacement of NG tube at the end of the case endoscopically. There was a sizable hiatal hernia noted and LA class B esophagitis. Stomach was J-shaped and had a diffuse gastritis noted, biopsies were taken, a dilated duodenum was also noted with biopsies taken here as well for sprue. Suggest holding off on restarting tube feeds until after the bronchoscopy is completed tomorrow. Will initiate erythromycin via the NG tube now that this is confirmed in the stomach endoscopically. 05/09/17--The bronchoscopy is been completed and the patient is now getting tube feeds at 35 mL/h. We will continue to watch and see what his residuals look like although this will be harder check with a Dobbhoff feeding tube. He remains on erythromycin 250 mg every 6 hours to help with his motility. He is starting to step up his diarrhea and I will ramp down on his MiraLAX as a result. 05/10/17--Doing well on the erythromycin. Patient has minimal residuals on 60 mL /h. Residuals are quite low at this point. Stools are doing adequately--one bowel movement a day and of the MiraLAX is been cut back. We will need to continue to watch this. 05/11/17--0 residuals on the erythromycin with tube feeds running at 60 mL/h which equals his goal rate. We do not know how well he responded to the dilation but this was performed several days ago. The patient is noted to have esophagitis which is responding to the Protonix. His stools are now down to 1 per day on the combination of Linzess and MiraLAX. From a GI standpoint this patient is doing very well. Once he wakes up enough to be able to swallow we can switch him over to oral erythromycin pills to maintain his emptying. He should be able to swallow better post dilation as well. I am going on vacation at this time and will sign off of the case. Please contact my partners if other issues arise. Current Visit: Yes (2) Abnormal weight loss Status: Acute Assessment and plan: For the past year the patient states that his weight has dropped from 275 pounds to 229 pounds. He states that while some of this is volitional some of it is certainly not and he is only been able to eat about 10% of his trays while here. He does not have the sensation of reflux. His difficulty with swallowing is overcome by chewing his food extremely carefully and following bites with clear liquids in between. This only occurs with solids and is highly suspicious for a physical stricture versus cancer. Again a barium swallow is being arranged for tomorrow--not only will this look for physical stricture but also assess for spinal impingement and dysmotility at the same time. 05/06/17--No new complaints, awaiting upper endoscopy Monday. 05/07/17--we will arrange for upper endoscopy Monday, tomorrow in order to look for evidence of the cause for his weight loss and consider doing dilation at the same time 05/08/17--We Will see how he is able to swallow later after he is off the ventilator. The patient has no gross evidence of an obstruction but does have dilation of the duodenum possibly pointing to a GI hypomotility. 05/09/17--Tube feedings been started, observe residuals. This patient will have a tendency towards ileus, hence the start of the erythromycin. 05/10/17--Continue tube feeds, observe for residuals, continue erythromycin. 05/11/17--As noted above, will sign off the case, please contact my partners if other issues arise in my absence. Current Visit: Yes (3) Macrocytic anemia Status: Acute Assessment and plan: May be related to B12 or folate deficiency versus alcohol intake versus myelodysplastic syndrome. His platelet level is normal I do not believe this is cirrhosis-related. 05/07/17--B12 and folate levels were completely normal. This leaves myelodysplastic syndrome versus cirrhosis is potential causes for the patient's macrocytic chronic anemia 05/08/17--as noted above 05/09/17--Patient does have some mild upper GI bleeding, will continue to observe. 05/10/17--as noted above--repeat CBC not checked yet. 05/11/17--The patient's hematocrit is stable at 30.9%. Continue watching on Protonix to protect him from his esophagitis. Switch this over to oral pills once the patient is able swallow again routinely. Current Visit: Yes (4) Chronic constipation Status: Acute Assessment and plan: This patient does have chronic constipation possibly related to his intake of hydrocodone/acetaminophen as well as his low-dose fentanyl patch and poor mobility possibly poor hydration. She has been given lactulose which is probably adding to his bloating and I have discontinued this medication. His has had great success with enemas and magnesium citrate at home. I am going to see if we can get by using Linzess in addition to MiraLAX instead. Orders have been written we need to observe and see what effect he has with these medications. Certainly would like to stop the MiraLAX first if this ends up being a brisk response to the Linzess. 05/06/17--The patient just had a barium study done today, he is getting his MiraLAX, if he is not a had a bowel movement today at some point we might consider use of another dose of magnesium citrate tomorrow to help him flush out the barium. He has a history of chronic constipation. 05/07/17--observing for present time. 05/08/17--Continue observation, doubt that he will do much stooling until he is starting back on tube feeds. 05/09/17--The patient is doing better with the MiraLAX twice daily and erythromycin. At this point given his diarrhea will cut back to once a day with MiraLAX. 05/10/17--observe constipation now that MiraLAX is down to 1 per day and Linzess is continuing. 05/11/17--Doing well on the Linzess and MiraLAX combination with one bowel movement per day. Current Visit: Yes Gastroenterology - PN: Subj Interval history: Tube feeds restarted yesterday at 60 mL/h which the patient is tolerating quite well with the erythromycin he is getting. As soon as he is able to take pills we should be able to switch him over to oral erythromycin. Exam (Progress Note) - Constitutional Vitals: Period Temp Pulse Resp BP Sys/Ivey Pulse Ox Last 24 Hr 98.0 F-99.1 F 78-113 12-27 82-154/65-107 96-100 General appearance: no acute distress - Head Head exam: Present: normocephalic - Eye Eye exam: Present: other (Not tested) - Respiratory Respiratory exam: Present: clear to auscultation bilaterally - Cardiovascular Cardiovascular exam: Present: regular rate and rhythm - GI/Abdominal GI/Abdominal exam: Present: normal bowel sounds, distended, soft. Absent: guarding, tenderness, rebound - Extremities Exam Extremities exam: Present: edema (Bilateral lower extremities) - Neurological Exam Neurological exam: Present: other (Not tested, patient sleeping) - Psychiatric Psychiatric exam: Present: other (Not tested patient's sleeping, nurse reports able to use all limbs. Nurse reports confused.) - Skin Skin exam: Present: warm Results - Labs CBC & BMP: 05/11/17 03:57 05/11/17 03:57
[2017-05-11] MEDS: LINACLOTIDE 145 MCG CAPSULE PO SCH (06:40)
--- NOTE | 2017-05-11 08:02 | XRay Report ---
History is ventilator management Comparison 05/10/2017 Heart is enlarged. Pacemaker is present. ET tube tip remains at T5 There is been mildly increasing diffuse bilateral interstitial and hazy pulmonary opacities. Pleural-based density in the lateral chest and left base remains. Small right pleural effusion now present. Impression: Worsening diffuse pulmonary opacities most likely pulmonary edema PROCEDURE INTERPRETED AT [facility] DEPARTMENT OF RADIOLOGY Final Report Signed by: Dr. Toya Barth
[2017-05-11] MEDS: POLYETHYLENE GLYCOL POWDER 17 GM PACK PO SCH (10:01)
[2017-05-11] MEDS: LIDOCAINE 5% PATCH TRANSDERM SCH (10:01)
--- NOTE | 2017-05-11 10:04 | Hospitalist Progress Note ---
Assessment and Plan (1) Ankylosing spondylitis Problem details: Spinal pain secondary to ankylosing spondylitis Status: Chronic Assessment and plan: 1)respiratory acidosis- on vent day 5. Doing CPAP trials and Dr Ramírez is going to try ttube also. Bronch showed collapsible airways, no sign of aspiration or sig secretions. Current plan is to minimize his pain medicine dramatically and Dr Patel is working toward that goal as his narcotics and marijuana may be contributing to his resp problems. He has been on ceftaz and levaquin day 8. Thoraentesis with transudate, 74%lymphs, WBC 2489, cultures pending and will continue antibiotics. Echo does not support diagnosis of CHF as cause of effusion. May be able to extubate tomorrow. 2)UTI- day 8 of antibiotics. treatment completed but antibiotics continued because of pulmonary infection. 3)pleural effusion- persistent. 4)ankylosing spondylitis with chronic pain from spinal stenosis 5)hypothyroidism 6)COPD 7)severe pulmonary HTN- outlier finding on echo on this admission- was much lower on recent echo. reeval. 8)hypokalemia- resolved with replacement. 9)afib/flutter- now in sinus rhythm. 10)GI- trouble swallowing, dysmotility. Emycin started per Dr Reddy and he is doing better with tube feeds. 11)chronic venous stasis changes Current Visit: No Qualifiers: Ankylosing spondylitis location: multiple sites in spine Qualified Code(s) : M45.0 - Ankylosing spondylitis of multiple sites in spine (2) Lower extremity edema Status: Acute Current Visit: No (3) Hypokalemia Status: Acute Current Visit: No (4) Chronic venous stasis dermatitis Status: Acute Current Visit: No (5) COPD (chronic obstructive pulmonary disease) Status: Chronic Current Visit: No (6) HTN (hypertension) Status: Chronic Current Visit: No (7) Urinary tract infection Status: Acute Current Visit: No (8) Respiratory failure Status: Acute Current Visit: Yes Qualifiers: Chronicity: acute on chronic Hospitalist: Subjective Interval history: MR Fischer is off the sedation and diong CPAP this morning. He is alert and communicative, laughed with me. He is tolerating tube feeds with the erythromycin per Dr Reddy. Dr Odell saw him for chronic venous stasis and made recommendations. Pleural fluid cultures negative, UCx had ecoli on 05/03, BAL culture with GPC id pending. Exam - Constitutional Vitals: Period Temp Pulse Resp BP Sys/Ivey Pulse Ox Last 24 Hr 98.0 F-99.1 F 78-113 12-27 82-159/60-107 95-100 General appearance: no acute distress, over weight - Head Head exam: Present: normocephalic, atraumatic - Eye Eye exam: Present: EOMI. Absent: scleral icterus - Respiratory Respiratory exam: Present: rhonchi - Cardiovascular Cardiovascular exam: Present: irregular rhythm - GI/Abdominal GI/Abdominal exam: Present: normal bowel sounds, soft. Absent: tenderness - Extremities Exam Extremities exam: Present: edema (chronic venous stasis changes as before, lower extremity edema) - Neurological Exam Neurological exam: Present: alert Results - Labs CBC & BMP: 05/11/17 03:57 05/11/17 03:57 Lab Results: I have reviewed the past 24 hour labs Quality Measures - Stroke Symptom Onset Unknown: No
[2017-05-11] MEDS: ASCORBIC ACID 500 MG TABLET PO SCH (10:05)
[2017-05-11] MEDS: metOLazone 5 MG TABLET PO SCH (10:05)
[2017-05-11] MEDS: THIAMINE 100 MG TABLET PO SCH (10:05)
[2017-05-11] MEDS: FOLIC ACID 1 MG TABLET PO SCH (10:05)
[2017-05-11] MEDS: IMIPRAMINE 25 MG TABLET PO SCH (10:05)
[2017-05-11] MEDS: MULTIVITAMIN (CENTRUM) TABLET PO SCH (10:05)
[2017-05-11] MEDS: PANTOPRAZOLE 40 MG TABLET PO SCH (10:05)
[2017-05-11] MEDS: POTASSIUM CHLORIDE 20 MEQ PACK PO SCH (10:06)
[2017-05-11] MEDS: miSOPROStol 200 MCG TABLET PO SCH (10:06)
[2017-05-11] MEDS: LEVOFLOXACIN INJ 500 MG in PREMIX 1 EACH IV SCH (10:24)
[2017-05-11] MEDS: AMINOPHYLLINE 500 MG in SODIUM CHLORIDE 0.9% 480 ML IV SCH (10:25)
[2017-05-11] MEDS: POTASSIUM PHOS/SOD PHOS 250 MG TABLET PO SCH ×4 (10:27→21:19)
[2017-05-11] MEDS: BISOPROLOL 5 MG TABLET PO SCH (10:29)
--- NOTE | 2017-05-11 11:25 | Pulmonology Progress Note ---
Pulmonary - PN: Subj Interval history: Tuan Philip, AGPCNP-, acting as scribe for Dr. Bala Ramírez Mr. Fischer is a 66-year-old white male who we saw in initial pulmonary consultation on 05/04/2017. At that time, our impressions were: #1: Acute altered mental status most likely secondary to #2 but consider other causes #2: Acute urinary tract infection #3: Ankylosing spondylitis with probable spinal stenosis. Anatomy and pain limited mobility. #4: Peripheral sensory neuropathy. His symptoms have gradually worsened over time. #5: Chronic venous stasis of the lower extremities. #6: Vitamin B deficiency. #7: Past history of tobacco abuse #8: COPD/asthma #9: Past history of high blood pressure #10: Hypothyroidism #11: Bilateral pleural effusions of unknown etiology #12: Dual-chamber cardiac pacemaker #13: History of marijuana use #14: History of compression fractures with chronic pain. Now under the care of Dr. Patel. #15: See past history 05/05/2017. Patient was seen today along with his . The patient is awake, alert, and oriented this morning. His theophylline was discontinued per the 's request yesterday. Of note, his theophylline level was 7.9. He has been seen in pain management consultation with Dr. Patel. His note has been reviewed. We appreciate his assistance. He will be out of town for the next few days, but upon his return we will begin tapering the patient's pain medications as per his note. Patient's lower extremities continue to be edematous. We will give Mr. Keith a one-time dose of IV Lasix. We will start Zaroxolyn 5 mg p.o. daily and KCl 20 mEq daily. Daily BMP/magnesium has been ordered. The patient's echocardiogram this admission as read by Dr. Vega showed an estimated EF of 60%, approximately 1+ mitral and aortic regurgitation , 1-2+ tricuspid regurgitation with a right ventricular systolic pressure of 60 mmHg plus the right atrial pressure suggesting severe pulmonary hypertension. This is a significant change from the echocardiogram done 04/12/[address] Nova which showed an EF estimated at 60%, grade 1 diastolic dysfunction, normal to mildly elevated filling pressures, mild aortic valve regurgitation, moderate ventricular hypertrophy with no demonstrable increase in right-sided pressure, and tricuspid regurgitation velocity suggesting a right ventricular systolic pressure of 23 mmHg plus the right atrial pressure. On chest x-ray today, the pleural effusion is improved. This patient has great difficulty laying flat given his ankylosing spondylitis, so we will begin diuresing him with his Zaroxolyn and see if his pleural effusion will resolve rather than proceed with CT PE protocol at this time. We will repeat a chest x-ray on Monday. Doppler venograms showed no evidence of dizziness thrombophlebitis. Abdominal ultrasound showed no ascites. Medications have been reviewed. Labs have been reviewed. White count is 5900 with a normal differential; H&H 10.7/33.6; platelet count 172,000; creatinine 0.40, BUN 8, electrolytes are normal; magnesium 2.5 Microbiology has been reviewed. Urine culture has grown E. coli. He is on Fortaz and Levaquin. Urine drug screen was positive for benzodiazepines and cannabinoids 05/08/2017. During the weekend the patient deteriorated. He developed a severe acidosis and a markedly elevated PCO2 and required movement to CCU along with intubation mechanical ventilation. He is still on the ventilator.His chest x- ray shows bibasilar infiltrates and some faint infiltrates in the right upper lung. Still has a small right pleural effusion. This is unexpected and I have to wonder about aspiration. We will plan to evaluate with fiberoptic bronchoscopy in the morning. His only positive cultures E. coli from his urine. ABGs have been ordered but are pending. Potassium is low at 3.0 and the patient will be placed on protocol. Natruretic peptide is 92. H&H is 10.8/ 31.9. White count is 8674.4 segs 7 lymphs and 16.1 monocytes. EKG shows no acute changes. At this point I am not entirely clear why the patient deteriorated so rapidly. 05/09/2017. Today's chest x-ray is better. Patient has cardiomegaly. He has bilateral alveolar and interstitial changes and he has a small to moderate size right pleural effusion. He is alert and oriented and can cooperate. Earlier today I evaluated patient with fiberoptic bronchoscopy. See the report. He had some mild erosive slightly friable bronchitis in the right lower lung that had the appearance of a recent pneumonia. This may be the etiology of his pleural effusion. The patient had only a small amount of sputum and both bronchial trees. I did not see any food or gastric content. Today the patient will go to stage II of his weaning protocol. The only positive culture is E. coli from the urine. ABGs on mechanical ventilation FiO2 40% shows a pH of 7.52 , PCO2 41.4, PO2 of 84.1 and a bicarb of 32.8. H&H is gradually dropping to 10.3/29.3. White count is 8276 segs and platelets are 141,000. Potassium is low at 3.2 and is being replaced. Theophylline level is 7.4. Last night the patient had atrial fib that required Cardizem and amiodarone. The patient's most recent echocardiogram (05/04/2017) showed pulmonary artery pressure above 70 whereas a month or so ago his pulmonary artery pressures were normal. We will repeat this today. Cardiology is seeing the patient in the past and placed cardiac pacemaker. Will last for follow-up evaluation. Also we have asked that his magnesium be checked. 05/10/2017. Patient's on stage III of the weaning protocol. Because of his anatomy chest x-ray is difficult to interpret. He has old pleural scarring on the right where he has had a previous pleural stripping. He has persistent pleural effusion on the right. Etiology of this is undetermined. His echocardiogram does not support congestive heart failure. He has no ascites on ultrasound of the abdomen. I discussed the possibility of thoracentesis by interventional radiologist with the and she is agreeable. We should send pleural fluid specimens for cytology, H&H, white blood cell count with differential, total protein, SGOT, LDH, Gram stain with bacterial culture, AFB stains and cultures. 05/11/2017. Patient was seen today along with his nurse. He remains on the ventilator weaning protocol. He is on stage III. He is progressing well. Yesterday the patient underwent thoracentesis by interventional radiology where approximately 1 L fluid was removed. On review of the pleural fluid, this was an exudate. On 05/09/2017 the patient underwent fiberoptic bronchoscopy. Cultures are growing gram-positive cocci. ID is pending. There has been no reportable AFB or fungus. Bronchoscopy lavages were class I. The patient looks strong today and ABGs on an FiO2 of 40% with mechanical ventilation showed PCO2 of 43 with a PO2 of 123.0. We have asked for the patient be placed on a T-tube trial with ABGs to be drawn 1 hour later and call to us. He remains on IV Aminophyllin. Theophylline level today is pending. Lower extremities continue to have edema. We are going to start Lasix 20 mg IV every 12 hours and placed him on a potassium replacement protocol. We discussed all these things with the patient's today to her understanding and she is in agreement with our plan of care. Medications have been reviewed. Labs have been reviewed. White count is 8400 with 76.7% segs; H&H 10.1/30.9; platelet count 188,000; creatinine 0.30, BUN 4, electrolytes are normal Exam (Progress Note) - Constitutional Vitals: Period Temp Pulse Resp BP Sys/Ivey Pulse Ox Last 24 Hr 98.0 F-99.1 F 78-113 12-27 82-159/60-107 94-100 Exam: Chest is fairly clear Heart no gallop Abdomen is obese, but nontender and nondistended; bowel sounds are positive 4 Extremities with nothing to suggest acute deep venous thrombophlebitis; bilateral pedal and pretibial edema; chronic venous stasis changes Psychiatric presently oriented 3 and sedation is removed Neurologic unchanged Plan: Continue ventilator weaning protocol. T-tube trial and ABGs 1 hour later with results called to us. Daily theophylline level. Lasix 20 mg IV every 12 hours. Potassium replacement protocol. Follow-up bronchoscopy results when available. Follow-up thoracentesis results when available. See orders. Results - Labs CBC & BMP: 05/11/17 03:57 05/11/17 03:57
[2017-05-11 13:04] LABS: ABG Base Excess 9.8 MMOL/L (-2.5-2.5); ABG HCO3 33.6 MMOL/L (20-26); ABG Oxygen Saturation 97.2 % (95-100); ABG PCO2 67.6 MM HG (35-48); ABG PH 7.356 (7.35-7.45); ABG PO2 96.1 MM HG (80-95); ABG TCO2 34.4 MMOL/L (23-27)
[2017-05-11] MEDS: FUROSEMIDE 20 MG/2 ML VIAL IV SCH (13:34)
--- NOTE | 2017-05-11 14:18 | Pathology Report from [facility] ---
[facility] ACCESSION # : [id number] PATIENT NAME : Breann Kelley ORDERING DR : Khoa Reddy MD CLINICAL HX: Dysphagia POST-OP DX: #1 rule out sprue #2 gastritis SPECIMEN INFO: #1 Duodenum #2 SHELLIE GROSS DESCRIPTION: The specimen is received in two parts labeled BREANN KELLEY. Part #1 labeled DUODENUM consists of an aggregate hernandez mucosal tissue measuring 0.8 x 0.3 cm, submitted in cassette #1.Part #2 labeled SHELLIE consists of a 07 x 0.5 cm aggregate of hernandez mucosal tissue, submitted in cassette #2. DIAGNOSIS FOR BREANN KELLEY: #1 DUODENUM, BIOPSY: Mild acute duodenitis. NO villous blunting or increased intracytoplasmic lymphocytes to suggest Celiac disease. Recommend clinical pathologic correlation.#2 GASTRIC, BIOPSY: Mild chronic gastritis. No H-pylori identified on H&E or special stain with appropriate controls performed. COLLECTED DATE: 05/10/2017 [facility] REPORT DATE: 05/11/2017 ELECTRONICALLY SIGNED BY: Sepideh Cohn M.D. 05/11/2017 - 11:31:38 [facility]
[2017-05-11] MEDS: CLORAZEPATE 3.75 MG TABLET PO SCH (21:19)
[2017-05-12] MEDS: PROPOFOL 1,000 MG/100 ML BOTTLE IV SCH ×4 (00:46→13:56)
[2017-05-12] MEDS: INSULIN LISPRO 100 UNIT/ML SUBCUT SCH ×5 (00:46→23:28)
[2017-05-12] MEDS: FUROSEMIDE 20 MG/2 ML VIAL IV SCH ×3 (00:47→23:03)
[2017-05-12] MEDS: ALBUTEROL/IPRATROPIUM 3 ML NEB RESP TX SCH ×4 (01:08→20:04)
[2017-05-12] MEDS: fentaNYL 12 MCG/HR PATCH TRANSDERM SCH (03:04)
[2017-05-12] MEDS: ERYTHROMYCIN INJ 250 MG in SODIUM CHLORIDE 0.9% 100 ML IV SCH ×4 (03:06→21:36)
[2017-05-12] MEDS: ENOXAPARIN 40 MG/0.4 ML SYRINGE SUBCUT SCH (03:47)
[2017-05-12 05:02] LABS: ABG HCO3 35.8 MMOL/L (20-26); ABG Oxygen Saturation 98.9 % (95-100); ABG PH 7.468 (7.35-7.45); Allen Test Positive; Pt O2 Delivery Device Ventilator
[2017-05-12 05:28] LABS: Calcium 7.7 MG/DL (8.5-10.1); Magnesium 1.7 MG/DL (1.8-2.4); Osmolality,Calculated 277.5 MOS/KG (273-304); Potassium 2.7 MMOL/L (3.5-5.1)
[2017-05-12] MEDS: AMINOPHYLLINE 500 MG in SODIUM CHLORIDE 0.9% 480 ML IV SCH (06:28)
[2017-05-12] MEDS: LEVOTHYROXINE 100 MCG TABLET PO SCH (06:29)
[2017-05-12] MEDS: POTASSIUM CHLORIDE RIDER 10 MEQ in PREMIX 1 EACH IV PRN ×5 (07:00→10:35)
--- NOTE | 2017-05-12 08:40 | XRay Report ---
History is ventilator management respiratory distress Comparison 05/11/2017 The heart is mildly enlarged with pacemaker present. ET tube tip is at T5 There has been mild continued improvement with mild residual diffuse hazy and reticular bilateral pulmonary opacities and small underlying effusions. Impression: Slight continued improvement with mild residual bilateral infiltrates versus edema PROCEDURE INTERPRETED AT [facility] DEPARTMENT OF RADIOLOGY Final Report Signed by: Dr. Toya Barth
[2017-05-12] MEDS: ASCORBIC ACID 500 MG TABLET PO SCH (08:58)
[2017-05-12] MEDS: IMIPRAMINE 25 MG TABLET PO SCH (08:58)
[2017-05-12] MEDS: metOLazone 5 MG TABLET PO SCH (08:58)
[2017-05-12] MEDS: THIAMINE 100 MG TABLET PO SCH (08:58)
[2017-05-12] MEDS: BISOPROLOL 5 MG TABLET PO SCH (08:58)
[2017-05-12] MEDS: PANTOPRAZOLE 40 MG TABLET PO SCH (08:58)
[2017-05-12] MEDS: MULTIVITAMIN (CENTRUM) TABLET PO SCH (08:58)
[2017-05-12] MEDS: miSOPROStol 200 MCG TABLET PO SCH (08:58)
[2017-05-12] MEDS: POTASSIUM CHLORIDE 20 MEQ PACK PO SCH (08:58)
[2017-05-12] MEDS: FOLIC ACID 1 MG TABLET PO SCH (08:58)
[2017-05-12] MEDS: POTASSIUM PHOS/SOD PHOS 250 MG TABLET PO SCH (08:59)
[2017-05-12] MEDS: LINACLOTIDE 145 MCG CAPSULE PO SCH (08:59)
[2017-05-12] MEDS: POLYETHYLENE GLYCOL POWDER 17 GM PACK PO SCH (09:05)
[2017-05-12] MEDS: LIDOCAINE 5% PATCH TRANSDERM SCH (09:17)
--- NOTE | 2017-05-12 11:14 | Pulmonology Progress Note ---
Pulmonary - PN: Subj Interval history: Tuan Philip, AGPCNP-, acting as scribe for Dr. Bala Ramírez Mr. Fischer is a 66-year-old white male who we saw in initial pulmonary consultation on 05/04/2017. At that time, our impressions were: #1: Acute altered mental status most likely secondary to #2 but consider other causes #2: Acute urinary tract infection #3: Ankylosing spondylitis with probable spinal stenosis. Anatomy and pain limited mobility. #4: Peripheral sensory neuropathy. His symptoms have gradually worsened over time. #5: Chronic venous stasis of the lower extremities. #6: Vitamin B deficiency. #7: Past history of tobacco abuse #8: COPD/asthma #9: Past history of high blood pressure #10: Hypothyroidism #11: Bilateral pleural effusions of unknown etiology #12: Dual-chamber cardiac pacemaker #13: History of marijuana use #14: History of compression fractures with chronic pain. Now under the care of Dr. Patel. #15: See past history 05/05/2017. Patient was seen today along with his . The patient is awake, alert, and oriented this morning. His theophylline was discontinued per the 's request yesterday. Of note, his theophylline level was 7.9. He has been seen in pain management consultation with Dr. Patel. His note has been reviewed. We appreciate his assistance. He will be out of town for the next few days, but upon his return we will begin tapering the patient's pain medications as per his note. Patient's lower extremities continue to be edematous. We will give Mr. Keith a one-time dose of IV Lasix. We will start Zaroxolyn 5 mg p.o. daily and KCl 20 mEq daily. Daily BMP/magnesium has been ordered. The patient's echocardiogram this admission as read by Dr. Vega showed an estimated EF of 60%, approximately 1+ mitral and aortic regurgitation , 1-2+ tricuspid regurgitation with a right ventricular systolic pressure of 60 mmHg plus the right atrial pressure suggesting severe pulmonary hypertension. This is a significant change from the echocardiogram done 04/12/[address] Nova which showed an EF estimated at 60%, grade 1 diastolic dysfunction, normal to mildly elevated filling pressures, mild aortic valve regurgitation, moderate ventricular hypertrophy with no demonstrable increase in right-sided pressure, and tricuspid regurgitation velocity suggesting a right ventricular systolic pressure of 23 mmHg plus the right atrial pressure. On chest x-ray today, the pleural effusion is improved. This patient has great difficulty laying flat given his ankylosing spondylitis, so we will begin diuresing him with his Zaroxolyn and see if his pleural effusion will resolve rather than proceed with CT PE protocol at this time. We will repeat a chest x-ray on Monday. Doppler venograms showed no evidence of dizziness thrombophlebitis. Abdominal ultrasound showed no ascites. Medications have been reviewed. Labs have been reviewed. White count is 5900 with a normal differential; H&H 10.7/33.6; platelet count 172,000; creatinine 0.40, BUN 8, electrolytes are normal; magnesium 2.5 Microbiology has been reviewed. Urine culture has grown E. coli. He is on Fortaz and Levaquin. Urine drug screen was positive for benzodiazepines and cannabinoids 05/08/2017. During the weekend the patient deteriorated. He developed a severe acidosis and a markedly elevated PCO2 and required movement to CCU along with intubation mechanical ventilation. He is still on the ventilator.His chest x- ray shows bibasilar infiltrates and some faint infiltrates in the right upper lung. Still has a small right pleural effusion. This is unexpected and I have to wonder about aspiration. We will plan to evaluate with fiberoptic bronchoscopy in the morning. His only positive cultures E. coli from his urine. ABGs have been ordered but are pending. Potassium is low at 3.0 and the patient will be placed on protocol. Natruretic peptide is 92. H&H is 10.8/ 31.9. White count is 8674.4 segs 7 lymphs and 16.1 monocytes. EKG shows no acute changes. At this point I am not entirely clear why the patient deteriorated so rapidly. 05/09/2017. Today's chest x-ray is better. Patient has cardiomegaly. He has bilateral alveolar and interstitial changes and he has a small to moderate size right pleural effusion. He is alert and oriented and can cooperate. Earlier today I evaluated patient with fiberoptic bronchoscopy. See the report. He had some mild erosive slightly friable bronchitis in the right lower lung that had the appearance of a recent pneumonia. This may be the etiology of his pleural effusion. The patient had only a small amount of sputum and both bronchial trees. I did not see any food or gastric content. Today the patient will go to stage II of his weaning protocol. The only positive culture is E. coli from the urine. ABGs on mechanical ventilation FiO2 40% shows a pH of 7.52 , PCO2 41.4, PO2 of 84.1 and a bicarb of 32.8. H&H is gradually dropping to 10.3/29.3. White count is 8276 segs and platelets are 141,000. Potassium is low at 3.2 and is being replaced. Theophylline level is 7.4. Last night the patient had atrial fib that required Cardizem and amiodarone. The patient's most recent echocardiogram (05/04/2017) showed pulmonary artery pressure above 70 whereas a month or so ago his pulmonary artery pressures were normal. We will repeat this today. Cardiology is seeing the patient in the past and placed cardiac pacemaker. Will last for follow-up evaluation. Also we have asked that his magnesium be checked. 05/10/2017. Patient's on stage III of the weaning protocol. Because of his anatomy chest x-ray is difficult to interpret. He has old pleural scarring on the right where he has had a previous pleural stripping. He has persistent pleural effusion on the right. Etiology of this is undetermined. His echocardiogram does not support congestive heart failure. He has no ascites on ultrasound of the abdomen. I discussed the possibility of thoracentesis by interventional radiologist with the and she is agreeable. We should send pleural fluid specimens for cytology, H&H, white blood cell count with differential, total protein, SGOT, LDH, Gram stain with bacterial culture, AFB stains and cultures. 05/11/2017. Patient was seen today along with his nurse. He remains on the ventilator weaning protocol. He is on stage III. He is progressing well. Yesterday the patient underwent thoracentesis by interventional radiology where approximately 1 L fluid was removed. On review of the pleural fluid, this was an exudate. On 05/09/2017 the patient underwent fiberoptic bronchoscopy. Cultures are growing gram-positive cocci. ID is pending. There has been no reportable AFB or fungus. Bronchoscopy lavages were class I. The patient looks strong today and ABGs on an FiO2 of 40% with mechanical ventilation showed PCO2 of 43 with a PO2 of 123.0. We have asked for the patient be placed on a T-tube trial with ABGs to be drawn 1 hour later and call to us. He remains on IV Aminophyllin. Theophylline level today is pending. Lower extremities continue to have edema. We are going to start Lasix 20 mg IV every 12 hours and placed him on a potassium replacement protocol. We discussed all these things with the patient's today to her understanding and she is in agreement with our plan of care. Medications have been reviewed. Labs have been reviewed. White count is 8400 with 76.7% segs; H&H 10.1/30.9; platelet count 188,000; creatinine 0.30, BUN 4, electrolytes are normal 05/12/2017. The patient was seen today along with his nurse, Dieter, and respiratory therapist, Quinton. Yesterday we tried the patient on a T-tube trial. His PCO2 elevated at 67.6. Placed him back on the ventilator and started Diamox. This morning ABGs on an FiO2 of 40% and mechanical ventilation showed pH of 7.468, PCO2 52.0, PaO2 121.0, bicarb 35.8, and oxygen saturation 98.9%. Will continue with T-tube trials and advance as tolerated. On 05/07/2017 patient with fiberoptic bronchoscopy. Cultures from this around MRSA. Previous urine culture grew E. coli. Will repeat urinalysis today. To cover for MRSA readiness her vancomycin but has pharmacology to dose this. He is presently on Levaquin and Fortaz. We see no reason to continue the Levaquin in the face of vancomycin so this will be discontinued. Today's chest x-ray is improved. He continues to have lower extremity edema. This is been discussed with Dr. Nelson we have coordinated our care. We will adjust his Lasix to 20 mg IV push every 12 hours. He has required IV Aminophyllin secondary to high- pitched peripheral wheezes. His theophylline today is elevated at 23.2. I am unsure the cause of his significant drop from yesterday considering he is on the same dose that he has been for the past several days. Nonetheless, we will stop his IV Aminophyllin and continue to follow daily theophylline levels. He is presently on stage V the weaning protocol. We are advancing this as tolerated. He is on potassium replacement protocol as well. He is on physical therapy protocol too. Medications have been reviewed. Labs been reviewed. Exam (Progress Note) - Constitutional Vitals: Period Temp Pulse Resp BP Sys/Ivey Pulse Ox Last 24 Hr 97.4 F-99.1 F 82-109 12-28 86-135/43-90 92-100 Exam: Chest is fairly clear Heart no gallop Abdomen is obese, but nontender and nondistended; bowel sounds are positive 4 Extremities with nothing to suggest acute deep venous thrombophlebitis; bilateral pedal and pretibial edema; chronic venous stasis changes Psychiatric presently oriented 3 when sedation is removed Neurologic unchanged Plan: Continue ventilator weaning protocol. Physical therapy protocol. Daily theophylline level. Lasix 20 mg IV every 12 hours. Potassium replacement protocol. Start vancomycin and has pharmacology to dose. Repeat urinalysis today. Stop Levaquin. Stop theophylline. Daily theophylline levels. Daily labs. See orders. Results - Labs CBC & BMP: 05/11/17 03:57 05/12/17 03:50
[2017-05-12 11:16] LABS: Apearance,Urine CLEAR (Clear); Bilirubin,Urine Negative (Negative); Blood, Urine Negative (Negative); Glucose,Urine (UA) Negative (Negative); Hyaline Casts,Urine 1 /LPF (0-3); Ketones,Urine Negative (Negative); Mucus,Urine Occasional /LPF (Occasional); Nitrite,Urine Negative (Negative); Protein,Urine Negative; RBC,Urine 2 /HPF (0-4); Squamous Epithelial Cell,Urine Occasional /HPF (0-10); Urine Color Yellow (Yellow); Urine Specific Gravity 1.016 (1.001-1.035); WBC,Urine 4 /HPF (0-6)
--- NOTE | 2017-05-12 11:44 | Hospitalist Progress Note ---
Assessment and Plan (1) Ankylosing spondylitis Problem details: Spinal pain secondary to ankylosing spondylitis Status: Chronic Assessment and plan: 1)respiratory acidosis- on vent day 6. Doing CPAP trials and Dr Ramírez is going to try ttube also. Bronch showed collapsible airways, no sign of aspiration or sig secretions. Current plan is to minimize his pain medicine dramatically and Dr Patel is working toward that goal as his narcotics and marijuana may be contributing to his resp problems. He had CO2 retention after Ttube yesterday and acetazolamide was started. He has been on ceftaz and levaquin day 9. Thoraentesis with exudate, 74%lymphs, WBC 2489, cultures negative and will stop antibiotics. Echo does not support diagnosis of CHF as cause of effusion. May be able to extubate soon. 2)UTI- day 9 of antibiotics. treatment completed but antibiotics continued because of pulmonary infection. 3)pleural effusion- s/p thoracentesis 4)ankylosing spondylitis with chronic pain from spinal stenosis 5)hypothyroidism 6)COPD 7)lower extremity edema- continue lasix but decrease dose. 8)hypokalemia- repeat replacement. 9)afib/flutter- now in sinus rhythm. 10)GI- trouble swallowing, dysmotility. Emycin started per Dr Reddy and he is doing better with tube feeds. 11)chronic venous stasis changes Current Visit: No Qualifiers: Ankylosing spondylitis location: multiple sites in spine Qualified Code(s) : M45.0 - Ankylosing spondylitis of multiple sites in spine (2) Lower extremity edema Status: Acute Current Visit: No (3) Hypokalemia Status: Acute Current Visit: No (4) Chronic venous stasis dermatitis Status: Acute Current Visit: No (5) COPD (chronic obstructive pulmonary disease) Status: Chronic Current Visit: No (6) HTN (hypertension) Status: Chronic Current Visit: No (7) Urinary tract infection Status: Acute Current Visit: No (8) Respiratory failure Status: Acute Current Visit: Yes Qualifiers: Chronicity: acute on chronic Hospitalist: Subjective Interval history: Mr Fischer is stable on the vent and alert. He asked where his is. He denies pain or trouble breathing. Exam - Constitutional Vitals: Period Temp Pulse Resp BP Sys/Ivey Pulse Ox Last 24 Hr 97.4 F-99.1 F 82-109 12-28 86-135/43-90 92-100 General appearance: no acute distress, over weight - Eye Eye exam: Present: EOMI. Absent: scleral icterus - Respiratory Respiratory exam: Present: clear to auscultation bilaterally (anterior easley) - Cardiovascular Cardiovascular exam: Present: regular rate and rhythm - GI/Abdominal GI/Abdominal exam: Present: normal bowel sounds, soft. Absent: tenderness - Extremities Exam Extremities exam: Present: edema (lower extremity edema unchanged over last few days with similar erythema from chronic venous stasis.) - Neurological Exam Neurological exam: Present: alert Results - Labs CBC & BMP: 05/11/17 03:57 05/12/17 03:50 Lab Results: I have reviewed the past 24 hour labs Quality Measures - Stroke Symptom Onset Unknown: No
--- NOTE | 2017-05-12 12:12 | General Surgery Progress Note ---
Assessment and Plan - Time spent with patient Time spent with patient: Less than 30 minutes (1) Chronic venous stasis dermatitis Status: Acute Assessment and plan: 05/10/2017. Chronic bilateral lower extremity venous stasis disease with congestion and slight erythema on the right. He also has some blistering and likely ulceration between the right third and fourth and right fourth and fifth webspaces. We will plan to go ahead and initiate some local care on these areas as well as offload the heels. He has extreme risk of breakdown, given his size and the previous history of venous stasis. It is less likely that this represents a true cellulitis, although we will watch the erythematous change on the right lower leg gaiter area. Once he is extubated and able to sit up, with his legs dependent he will require very vigilant compression. 05/12/2017. Bilateral lower extremity venous stasis disease stable. We will continue to offload these areas and watch for other pressure changes. He is at risk for numerous other breakdowns, and will need to offload his heels and feet appropriately. If his chooses to bring his [place] wraps to the hospital, these could be placed and I discussed this with his nurse. We will try to make an effort to touch base and communicate with his , but as of today have not seen her on any of the visits. Sacral area stable at this time and may represent a chronically scarred area. Current Visit: No Subjective Patient reports: Present: other (Patient is awake on the ventilator; he is in a mild degree of distress, apparently communicating that he would like to see his but when asked if he is in pain or distress he shakes his head no) Exam - Constitutional Vitals: Period Temp Pulse Resp BP Sys/Ivey Pulse Ox Last 24 Hr 97.4 F-99.1 F 82-109 12-28 86-135/43-90 92-100 General appearance: mild distress, over weight, disheveled, other (Denies pain) - GI/Abdominal GI/Abdominal exam: Present: hypoactive bowel sounds, soft. Absent: guarding - Extremities Exam Extremities exam: Present: other (Bilateral lower extremities continue to have pitting edema, 2+. Mild resolving erythema the gaiter area on the right; this is much less pronounced than on his previous visits. He has no open areas that I can see. He has small areas of vesicular change between the third and fourth and fourth and fifth toe web spaces on the right. His nurse points out a possible pressure area on the left heel, and is red, non-blanchable erythema but I am unable to detect vesicular area at this point. He is our offloaded with both heel pads and blue offloading heel boots. His skin is being protected with skin barrier cream, and I see no other open areas although his skin is very vulnerable as well as all pressure points vulnerable at this time.) - Back Exam Back exam: Present: other (Sacral area and dressed with Allevyn pad and is stable without progression at this time.) Results - Labs CBC & BMP: 05/11/17 03:57 05/12/17 03:50 Lab Results: I have reviewed the past 24 hour labs Quality Measures - Stroke Symptom Onset Unknown: No
[2017-05-12] MEDS: VANCOMYCIN INJ 1,750 MG in SODIUM CHLORIDE 0.9% 500 ML IV SCH ×2 (12:55→23:15)
--- NOTE | 2017-05-12 18:16 | Pathology Report from [facility] ---
[facility] [place] [facility] [place] # : [id number] PATIENT NAME : Royer Fischer ORDERING DR : Francis Bernardo MD CLINICAL HX: Pleural Effusion POST-OP DX: Same SPECIMEN INFO: Fluid,Pleural,Right - 1000 mls dark yellow, cloudy CLASS: II CLASS COMMENTS: Fibrin, lymphocytes, histiocytes, and reactive mesothelial cellsCELL BLOCK: Same CLASS LEGEND: CLASS 0 Material inadequate for diagnosis because of (see comment) CLASS I Absence of atypical or abnormal cells CLASS II Atypical Cytology but no evidence of malignancy CLASS III Cytology suggestive of but not conclusive for malignancy CLASS IV Cytology strongly suggestive of malignancy CLASS V Cytology conclusive for malignancy COLLECTED DATE: 05/11/2017 [facility] REPORT DATE: 05/12/2017 ELECTRONICALLY SIGNED BY: Gela Mcqueen M.D. 05/12/2017 - 9:20:43 [facility]
[2017-05-12] MEDS: DILTIAZEM INJ 100 MG in SODIUM CHLORIDE 0.9% 100 ML IV SCH (22:10)
[2017-05-12] MEDS: CLORAZEPATE 7.5 MG TABLET PO SCH (23:03)
[2017-05-13] MEDS: ALBUTEROL/IPRATROPIUM 3 ML NEB RESP TX SCH ×4 (03:21→20:48)
[2017-05-13 03:22] LABS: Allen Test Positive; Pt O2 Delivery Device Ventilator
[2017-05-13 03:26] LABS: ABG HCO3 35.8 MMOL/L (20-26); ABG Oxygen Saturation 99.1 % (95-100); ABG PCO2 42.7 MM HG (35-48); ABG PH 7.535 (7.35-7.45); ABG TCO2 32.3 MMOL/L (23-27)
[2017-05-13] MEDS: ENOXAPARIN 40 MG/0.4 ML SYRINGE SUBCUT SCH (03:51)
[2017-05-13] MEDS: ERYTHROMYCIN INJ 250 MG in SODIUM CHLORIDE 0.9% 100 ML IV SCH ×4 (03:52→21:46)
[2017-05-13 04:56] LABS: Basophils % 0.4 % (0.0-0.8); Eosinophils # 0.2 10*3/uL (0.0-0.87); Eosinophils % 2.9 % (0.00-10.9); Hematocrit 25.5 VOL% (42.0-52.0); Hemoglobin 8.3 GM/DL (14.0-18.0); Immature Granulocytes % 1.7 %; Immature Granulocytes Absolute 0.14 #; Lymphocytes # 0.8 10*3/uL (1.4-4.0); Lymphocytes % 9.7 % (21.2-54.2); Mean Corpuscular HGB Conc 32.5 GM/DL (32-36); Mean Corpuscular Hemoglobin 33 PG (27-34); Mean Corpuscular Volume 100.4 FL (87-102); Mean Platelet Volume 11.4 FL (9.6-12.0); Monocytes # 0.8 10*3/uL (0.11-0.8); Monocytes % 9.8 % (1.7-12.7); Neutrophils # 6.2 10*3/uL (1.4-7.4); Neutrophils % 75.5 % (38.7-73.9); Platelet Count 162 T/CUMM (130-400); Red Blood Count 2.54 MC/CUMM (3.8-5.5); Red Cell Distribution Width 13.1 % (9.3-17.3); White Blood Count 8.2 T/CUMM (4-12)
[2017-05-13 05:33] LABS: Calcium 6.4 MG/DL (8.5-10.1); Magnesium 1.5 MG/DL (1.8-2.4)
[2017-05-13] MEDS: POTASSIUM CHLORIDE RIDER 10 MEQ in PREMIX 1 EACH IV PRN ×10 (06:05→18:28)
[2017-05-13] MEDS: LEVOTHYROXINE 100 MCG TABLET PO SCH (06:07)
[2017-05-13] MEDS: LINACLOTIDE 145 MCG CAPSULE PO SCH ×2 (06:07→06:52)
[2017-05-13] MEDS: INSULIN LISPRO 100 UNIT/ML SUBCUT SCH ×4 (06:45→23:54)
--- NOTE | 2017-05-13 07:16 | Hospitalist Progress Note ---
Assessment and Plan - Time spent with patient Time spent with patient: Less than 30 minutes (1) Respiratory failure Status: Acute Assessment and plan: Continuing to require ventilator assistance. Pulmonary is following and managing. He did undergo bronchoscopy revealing MRSA in the washings. Continuing Fortaz and vancomycin at this time. He is also undergone thoracentesis for pleural effusion which was noted to be extubated. He has had echocardiogram performed revealing ejection fraction at 60% with grade 1 diastolic dysfunction. Current Visit: Yes Qualifiers: Chronicity: acute on chronic (2) Urinary tract infection Status: Acute Assessment and plan: Culture noted E. coli. Continuing current IV antibiotic therapy. Current Visit: No (3) Hypokalemia Status: Acute Assessment and plan: Undergoing potassium replacement protocol. Current Visit: No (4) COPD (chronic obstructive pulmonary disease) Status: Chronic Assessment and plan: Followed by pulmonary and treatment as noted above for respiratory failure. Current Visit: No (5) Chronic venous insufficiency Status: Chronic Assessment and plan: Being followed by Dr. Odell. Continuing gentle diuresis and IV antibiotics. Local care. Current Visit: No (6) Hypothyroidism Status: Chronic Assessment and plan: Continue on replacement therapy. Current Visit: No (7) Cardiac pacemaker in situ Status: Chronic Current Visit: No (8) Altered mental status Status: Resolved Assessment and plan: Likely secondary to urinary tract infection, respiratory failure. Continuing to treat underlying etiologies. Current Visit: No Qualifiers: Altered mental status type: disorientation Qualified Code(s): R41.0 - Disorientation, unspecified (9) HTN (hypertension) Status: Chronic Assessment and plan: Currently well controlled. Current Visit: No Qualifiers: Hypertension type: essential hypertension Qualified Code(s): I10 - Essential (primary) hypertension (10) Pleural effusion Status: Acute Assessment and plan: Status post thoracentesis with results as noted above. Current Visit: Yes Hospitalist: Subjective Interval history: Chart is been reviewed and patient examined. He is awake alert sitting up in bed but continues to be intubated and requiring support. He is receiving enteral feedings for nutritional support. He is comfortable and denies any pain at this time. Pulmonary continues to manage his ventilator. Exam - Constitutional Vitals: Period Temp Pulse Resp BP Sys/Ivey Pulse Ox Last 24 Hr 98.2 F-99.2 F 82-109 12-26 90-135/48-90 89-100 General appearance: no acute distress - Head Head exam: Present: normocephalic, atraumatic - Eye Eye exam: Present: EOMI Pupils: Present: SAMSON - ENT ENT exam: Present: other (ET tube in place) - Neck Neck exam: Present: normal inspection - Respiratory Respiratory exam: Present: clear to auscultation bilaterally - Cardiovascular Cardiovascular exam: Present: regular rate and rhythm - GI/Abdominal GI/Abdominal exam: Present: normal bowel sounds, soft. Absent: tenderness, rebound - Extremities Exam Extremities exam: Present: edema. Absent: calf tenderness - Neurological Exam Neurological exam: Present: alert, other (Obey simple commands) - Psychiatric Psychiatric exam: Present: normal affect, normal mood. Absent: agitated, anxious - Skin Skin exam: Present: warm, dry Results - Labs CBC & BMP: 05/13/17 04:30 05/13/17 04:30 Lab Results: I have reviewed the past 24 hour labs Quality Measures - Stroke Symptom Onset Unknown: No
[2017-05-13] MEDS ORDERED: MAGNESIUM SULF RIDER 4 GM in PREMIX 1 EACH IV PRN (07:42)
[2017-05-13] MEDS ORDERED: MAGNESIUM SULF RIDER 2 GM in PREMIX 1 EACH IV PRN (07:42)
--- NOTE | 2017-05-13 07:45 | XRay Report ---
Exam: XR chest 1V portable Date: 05/13/2017 4:00 AM Indication: Follow-up ventilator Comparison: 05/12/2017 Technical: AP portable Findings: Endotracheal tube nasogastric tube cardiac pacing device present. Previous vertebral plasty. COPD with hyperinflation and low volume effusions with atelectatic change present. Mediastinum is otherwise intact. Mild cardiac enlargement. Old left rib fracture. Impression: 1. Stable appearance of life support tubes 2. Previous vertebral plasty and chronic old left upper lateral rib fracture with residual deformity 3. Persistent low volume effusions underlying COPD and atelectasis left greater than right PROCEDURE INTERPRETED AT [facility] DEPARTMENT OF RADIOLOGY Final Report Signed by: Dr. Bala Delatorre
--- NOTE | 2017-05-13 08:02 | Pulmonology Progress Note ---
Pulmonary - PN: Subj Interval history: This 66-year-old man has ankylosing spondylitis. He has had a chronic right pleural effusion. It was tapped earlier it did appear to be an exudate. He has been diuresed vigorously. Renal function remains acceptable but his potassium is down to 2.0. I am going to reduce his Lasix and change the Zaroxolyn to Aldactone. Potassium is being replaced. He had MRSA in his sputum and E. coli in his urine. He is on vancomycin and Fortaz Exam (Progress Note) - Constitutional Vitals: Period Temp Pulse Resp BP Sys/Ivey Pulse Ox Last 24 Hr 98.2 F-99.2 F 85-109 15-26 90-135/48-90 89-100 Exam: Vital signs normal. Patient is responsive. Pupils react to light. Wears a long smith. Tracheostomy looks clean. Chest shows a few rhonchi equal breath sounds. Heart normal rate rhythm no murmurs. Abdomen soft nontender no masses. Extremities no clubbing cyanosis edema. Results - Labs CBC & BMP: 05/13/17 04:30 05/13/17 04:30 Lab Results: I have reviewed the past 24 hour labs - Diagnostic Findings Procedure: Chest x-ray: image reviewed by me (He has bilateral pleural effusions but they are definitely improved today compared to yesterday. I can see the right diaphragm.) Assessment and Plan (1) Sepsis secondary to UTI Status: Acute Assessment and plan: Continuing with Fortaz for E. coli UTI. Current Visit: Yes (2) Ankylosing spondylitis Problem details: Spinal pain secondary to ankylosing spondylitis Status: Chronic Assessment and plan: Causes restrictive lung disease. Current Visit: No Qualifiers: Ankylosing spondylitis location: multiple sites in spine Qualified Code(s) : M45.0 - Ankylosing spondylitis of multiple sites in spine (3) Hypokalemia Status: Acute Assessment and plan: Potassium was 2.0. Stop Zaroxolyn, reduce sodium, and Aldactone. Replace potassium Current Visit: No (4) Respiratory failure Status: Chronic Assessment and plan: Tolerating mechanical ventilation. Not ready to wean as yet. Current Visit: Yes
[2017-05-13] MEDS: ASCORBIC ACID 500 MG TABLET PO SCH (08:25)
[2017-05-13] MEDS: THIAMINE 100 MG TABLET PO SCH (08:25)
[2017-05-13] MEDS: BISOPROLOL 5 MG TABLET PO SCH (08:26)
[2017-05-13] MEDS: POTASSIUM CHLORIDE 20 MEQ PACK PO SCH (08:26)
[2017-05-13] MEDS: FOLIC ACID 1 MG TABLET PO SCH (08:27)
[2017-05-13] MEDS: MULTIVITAMIN (CENTRUM) TABLET PO SCH (08:27)
[2017-05-13] MEDS: SPIRONOLACTONE 25 MG TABLET PO SCH ×2 (08:27→21:48)
[2017-05-13] MEDS: miSOPROStol 200 MCG TABLET PO SCH (08:27)
[2017-05-13] MEDS: IMIPRAMINE 25 MG TABLET PO SCH (08:27)
[2017-05-13] MEDS: PANTOPRAZOLE 40 MG TABLET PO SCH (08:27)
[2017-05-13] MEDS: LIDOCAINE 5% PATCH TRANSDERM SCH (08:38)
[2017-05-13] MEDS: POLYETHYLENE GLYCOL POWDER 17 GM PACK PO SCH (08:41)
[2017-05-13] MEDS: FUROSEMIDE 20 MG/2 ML VIAL IV SCH (08:57)
[2017-05-13] MEDS: VANCOMYCIN INJ 1,750 MG in SODIUM CHLORIDE 0.9% 500 ML IV SCH ×2 (13:45→23:51)
[2017-05-13] MEDS: PROPOFOL 1,000 MG/100 ML BOTTLE IV SCH (14:16)
[2017-05-13 14:21] LABS: Magnesium 2.3 MG/DL (1.8-2.4); Osmolality,Calculated 272.1 MOS/KG (273-304); Potassium 3.3 MMOL/L (3.5-5.1)
[2017-05-13] MEDS: DILTIAZEM INJ 100 MG in SODIUM CHLORIDE 0.9% 100 ML IV SCH (21:46)
[2017-05-13] MEDS: CLORAZEPATE 7.5 MG TABLET PO SCH (21:48)
[2017-05-14] MEDS: ALBUTEROL/IPRATROPIUM 3 ML NEB RESP TX SCH ×4 (01:30→19:06)
[2017-05-14 03:52] LABS: Allen Test Positive; Pt O2 Delivery Device Ventilator
[2017-05-14 03:56] LABS: ABG Base Excess 10.3 MMOL/L (-2.5-2.5); ABG Oxygen Saturation 98.3 % (95-100); ABG PCO2 47.8 MM HG (35-48); ABG PH 7.482 (7.35-7.45); ABG PO2 108.7 MM HG (80-95); ABG TCO2 36.4 MMOL/L (23-27)
[2017-05-14] MEDS: PROPOFOL 1,000 MG/100 ML BOTTLE IV SCH (04:21)
[2017-05-14] MEDS: ENOXAPARIN 40 MG/0.4 ML SYRINGE SUBCUT SCH (04:22)
[2017-05-14] MEDS: ERYTHROMYCIN INJ 250 MG in SODIUM CHLORIDE 0.9% 100 ML IV SCH ×4 (04:23→21:23)
[2017-05-14 04:52] LABS: Basophils # 0.1 10*3/uL (0.0-0.2); Basophils % 0.6 % (0.0-0.8); Eosinophils # 0.1 10*3/uL (0.0-0.87); Eosinophils % 1.2 % (0.00-10.9); Hematocrit 28.9 VOL% (42.0-52.0); Hemoglobin 9.4 GM/DL (14.0-18.0); Immature Granulocytes % 1.6 %; Immature Granulocytes Absolute 0.17 #; Lymphocytes # 0.7 10*3/uL (1.4-4.0); Lymphocytes % 6.5 % (21.2-54.2); Mean Corpuscular HGB Conc 32.5 GM/DL (32-36); Mean Corpuscular Hemoglobin 32 PG (27-34); Mean Corpuscular Volume 98.6 FL (87-102); Monocytes # 1.3 10*3/uL (0.11-0.8); Monocytes % 11.7 % (1.7-12.7); Neutrophils # 8.5 10*3/uL (1.4-7.4); Neutrophils % 78.4 % (38.7-73.9); Red Blood Count 2.93 MC/CUMM (3.8-5.5); Red Cell Distribution Width 13.1 % (9.3-17.3); White Blood Count 10.8 T/CUMM (4-12)
[2017-05-14 05:19] LABS: Calcium 8.1 MG/DL (8.5-10.1); Magnesium 2.3 MG/DL (1.8-2.4); Osmolality,Calculated 271.2 MOS/KG (273-304)
[2017-05-14 05:27] LABS: Platelet Count 134 T/CUMM (130-400)
[2017-05-14] MEDS: INSULIN LISPRO 100 UNIT/ML SUBCUT SCH ×3 (05:52→18:26)
[2017-05-14] MEDS: LEVOTHYROXINE 100 MCG TABLET PO SCH (06:31)
[2017-05-14] MEDS: LINACLOTIDE 145 MCG CAPSULE PO SCH (06:31)
--- NOTE | 2017-05-14 07:04 | Hospitalist Progress Note ---
Assessment and Plan - Time spent with patient Time spent with patient: Less than 30 minutes (1) Respiratory failure Status: Acute Assessment and plan: Continuing to require ventilator assistance. Pulmonary is following and managing. He did undergo bronchoscopy revealing MRSA in the washings. Continuing Fortaz and vancomycin at this time. He is also undergone thoracentesis for pleural effusion which was noted to be extubated. He has had echocardiogram performed revealing ejection fraction at 60% with grade 1 diastolic dysfunction. 05/14/17: Pulmonary continues to manage his ventilator and attempt to wean. We will continue current IV antibiotics, nutritional support, DVT prophylaxis. Current Visit: Yes Qualifiers: Chronicity: acute on chronic (2) Urinary tract infection Status: Acute Assessment and plan: Culture noted E. coli. Continuing current IV antibiotic therapy. Current Visit: No (3) Hypokalemia Status: Resolved Assessment and plan: Undergoing potassium replacement protocol. 05/14/17: Potassium replacement has been successful and we are now normokalemic. Current Visit: No (4) COPD (chronic obstructive pulmonary disease) Status: Chronic Assessment and plan: Followed by pulmonary and treatment as noted above for respiratory failure. Current Visit: No (5) Chronic venous insufficiency Status: Chronic Assessment and plan: Being followed by Dr. Odell. Continuing gentle diuresis and IV antibiotics. Local care. Current Visit: No (6) Hypothyroidism Status: Chronic Assessment and plan: Continue on replacement therapy. Current Visit: No (7) Cardiac pacemaker in situ Status: Chronic Current Visit: No (8) Altered mental status Status: Resolved Assessment and plan: Likely secondary to urinary tract infection, respiratory failure. Continuing to treat underlying etiologies. Current Visit: No Qualifiers: Altered mental status type: disorientation Qualified Code(s): R41.0 - Disorientation, unspecified (9) HTN (hypertension) Status: Chronic Assessment and plan: Currently well controlled. Current Visit: No Qualifiers: Hypertension type: essential hypertension Qualified Code(s): I10 - Essential (primary) hypertension (10) Pleural effusion Status: Acute Assessment and plan: Status post thoracentesis with results as noted above. Current Visit: Yes Hospitalist: Subjective Interval history: No new issues overnight. Continues to receive enteral feedings for nutritional support. He is currently sedated. Pulmonary is managing his ventilator. Exam - Constitutional Vitals: Period Temp Pulse Resp BP Sys/Ivey Pulse Ox Last 24 Hr 97.7 F-98.7 F 73-104 12-99 92-160/56-123 94-100 General appearance: no acute distress - Head Head exam: Present: normocephalic, atraumatic - Eye Eye exam: Present: EOMI Pupils: Present: SAMSON - ENT ENT exam: Present: other (ET tube in place) - Neck Neck exam: Present: normal inspection - Respiratory Respiratory exam: Present: clear to auscultation bilaterally - Cardiovascular Cardiovascular exam: Present: regular rate and rhythm. Absent: tachycardia - GI/Abdominal GI/Abdominal exam: Present: normal bowel sounds, soft. Absent: tenderness, rebound - Extremities Exam Extremities exam: Present: edema. Absent: calf tenderness - Neurological Exam Neurological exam: Present: other (Sedated on the ventilator) - Skin Skin exam: Present: warm, dry Results - Labs CBC & BMP: 05/14/17 04:33 05/14/17 04:33 Lab Results: I have reviewed the past 24 hour labs - Diagnostic Findings Procedure: Chest x-ray: image reviewed by me Quality Measures - Stroke Symptom Onset Unknown: No
[2017-05-14 07:35] LABS: Basophilic Stippling Slight; Hypochromasia 1+
--- NOTE | 2017-05-14 08:44 | Pulmonology Progress Note ---
Pulmonary - PN: Subj Interval history: This 66-year-old man has ankylosing spondylitis. He has had a chronic right pleural effusion. It was tapped earlier it did appear to be an exudate. He has been diuresed vigorously. Renal function remains acceptable but his potassium is down to 2.0. I am going to reduce his Lasix and change the Zaroxolyn to Aldactone. Potassium is being replaced. He had MRSA in his sputum and E. coli in his urine. He is on vancomycin and Fortaz 05/14/2017 patient is making good progress with CPAP and doing some T-tube. X- ray shows little change. Patient is alert and calm. Exam (Progress Note) - Constitutional Vitals: Period Temp Pulse Resp BP Sys/Ivey Pulse Ox Last 24 Hr 97.7 F-98.7 F 73-104 12-99 92-160/56-123 94-100 Exam: Vital signs normal. Patient is responsive. Pupils react to light. Wears a long smith. Tracheostomy looks clean. Chest shows a few rhonchi equal breath sounds. Heart normal rate rhythm no murmurs. Abdomen soft nontender no masses. Extremities no clubbing cyanosis edema. Results - Labs CBC & BMP: 05/14/17 04:33 05/14/17 04:33 Lab Results: I have reviewed the past 24 hour labs - Diagnostic Findings Procedure: Chest x-ray: image reviewed by me (Small effusions bilaterally. Bibasilar infiltrates. Little change from yesterday. Pacemaker over left upper chest. ET tube good position.) Assessment and Plan (1) Sepsis secondary to UTI Status: Acute Assessment and plan: Continuing with Fortaz for E. coli UTI. 05/14/2017 no fever. Current Visit: Yes (2) Ankylosing spondylitis Problem details: Spinal pain secondary to ankylosing spondylitis Status: Chronic Assessment and plan: Causes restrictive lung disease. 05/14/2017 this will impair weaning. Current Visit: No Qualifiers: Ankylosing spondylitis location: multiple sites in spine Qualified Code(s) : M45.0 - Ankylosing spondylitis of multiple sites in spine (3) Hypokalemia Status: Resolved Assessment and plan: Potassium was 2.0. Stop Zaroxolyn, reduce sodium, and Aldactone. Replace potassium 05/14/2017 I changed diuretics yesterday. He was given a good bit of potassium. It is now up to normal. Needs to be watched closely. Potassium 4.0 today Current Visit: No (4) Respiratory failure Status: Chronic Assessment and plan: Tolerating mechanical ventilation. Not ready to wean as yet. 05/14/2017 he is tolerating some CPAP trials. Also T tubes. Current Visit: Yes
--- NOTE | 2017-05-14 09:09 | XRay Report ---
Exam: XR chest 1V portable Date: 05/14/2017 4:00 AM Indication: Follow-up ventilator respiratory failure Comparison: 05/13/2017 Technical: AP Findings: Cardiac pacing device with atrial ventricular leads from a left-sided approach. Endotracheal tube is at the mid clavicle. Nasogastric traverses esophagus into the stomach. Low volume effusions are present with component of cardiac enlargement and hyperinflation shunt vascularity. Vertebral plasty changes are present in the mid lower thoracic spine. Impression: 1. Stable appearance of life support tubing with persistent effusions without significant interval change. PROCEDURE INTERPRETED AT [facility] DEPARTMENT OF RADIOLOGY Final Report Signed by: Dr. Bala Delatorre
[2017-05-14] MEDS: IMIPRAMINE 25 MG TABLET PO SCH (09:25)
[2017-05-14] MEDS: miSOPROStol 200 MCG TABLET PO SCH (09:25)
[2017-05-14] MEDS: ASCORBIC ACID 500 MG TABLET PO SCH (09:25)
[2017-05-14] MEDS: FOLIC ACID 1 MG TABLET PO SCH (09:25)
[2017-05-14] MEDS: BISOPROLOL 5 MG TABLET PO SCH (09:25)
[2017-05-14] MEDS: SPIRONOLACTONE 25 MG TABLET PO SCH ×2 (09:25→21:22)
[2017-05-14] MEDS: POTASSIUM CHLORIDE 20 MEQ PACK PO SCH (09:25)
[2017-05-14] MEDS: PANTOPRAZOLE 40 MG TABLET PO SCH (09:25)
[2017-05-14] MEDS: MULTIVITAMIN (CENTRUM) TABLET PO SCH (09:25)
[2017-05-14] MEDS: THIAMINE 100 MG TABLET PO SCH (09:25)
[2017-05-14] MEDS: POLYETHYLENE GLYCOL POWDER 17 GM PACK PO SCH (09:26)
[2017-05-14] MEDS: FUROSEMIDE 20 MG/2 ML VIAL IV SCH (09:36)
[2017-05-14] MEDS: LIDOCAINE 5% PATCH TRANSDERM SCH (09:37)
[2017-05-14] MEDS: VANCOMYCIN INJ 1,750 MG in SODIUM CHLORIDE 0.9% 500 ML IV SCH ×2 (12:55→23:52)
[2017-05-14] MEDS: CLORAZEPATE 7.5 MG TABLET PO SCH (21:22)
[2017-05-14] MEDS: DILTIAZEM INJ 100 MG in SODIUM CHLORIDE 0.9% 100 ML IV SCH (21:22)
[2017-05-15] MEDS: ALBUTEROL/IPRATROPIUM 3 ML NEB RESP TX SCH ×4 (01:04→19:21)
[2017-05-15] MEDS: PROPOFOL 1,000 MG/100 ML BOTTLE IV SCH (02:47)
[2017-05-15 03:30] LABS: Allen Test Positive; Pt O2 Delivery Device Ventilator
[2017-05-15 03:31] LABS: ABG HCO3 32.8 MMOL/L (20-26); ABG PH 7.505 (7.35-7.45); ABG TCO2 30.3 MMOL/L (23-27)
[2017-05-15] MEDS: ERYTHROMYCIN INJ 250 MG in SODIUM CHLORIDE 0.9% 100 ML IV SCH ×4 (04:00→22:38)
[2017-05-15] MEDS: ENOXAPARIN 40 MG/0.4 ML SYRINGE SUBCUT SCH (04:34)
[2017-05-15 04:52] LABS: Basophils % 0.4 % (0.0-0.8); Eosinophils # 0.1 10*3/uL (0.0-0.87); Hematocrit 28.3 VOL% (42.0-52.0); Hemoglobin 9.2 GM/DL (14.0-18.0); Immature Granulocytes % 1.1 %; Immature Granulocytes Absolute 0.12 #; Lymphocytes # 0.8 10*3/uL (1.4-4.0); Lymphocytes % 7.5 % (21.2-54.2); Mean Corpuscular HGB Conc 32.5 GM/DL (32-36); Mean Corpuscular Hemoglobin 32 PG (27-34); Mean Platelet Volume 11.1 FL (9.6-12.0); Monocytes # 1.1 10*3/uL (0.11-0.8); Monocytes % 9.9 % (1.7-12.7); Neutrophils # 8.5 10*3/uL (1.4-7.4); Neutrophils % 80.1 % (38.7-73.9); Platelet Count 214 T/CUMM (130-400); Red Blood Count 2.86 MC/CUMM (3.8-5.5); Red Cell Distribution Width 13.1 % (9.3-17.3); White Blood Count 10.7 T/CUMM (4-12)
[2017-05-15 05:28] LABS: Calcium 8.4 MG/DL (8.5-10.1); Magnesium 2.3 MG/DL (1.8-2.4); Osmolality,Calculated 277.7 MOS/KG (273-304); Phosphorous 2.1 MG/DL (2.5-4.9); Potassium 3.4 MMOL/L (3.5-5.1)
[2017-05-15] MEDS: INSULIN LISPRO 100 UNIT/ML SUBCUT SCH ×4 (05:35→17:40)
[2017-05-15] MEDS: POTASSIUM CHLORIDE RIDER 10 MEQ in PREMIX 1 EACH IV PRN ×3 (05:38→09:11)
[2017-05-15] MEDS: LINACLOTIDE 145 MCG CAPSULE PO SCH (06:36)
[2017-05-15] MEDS: LEVOTHYROXINE 100 MCG TABLET PO SCH (06:36)
--- NOTE | 2017-05-15 07:44 | XRay Report ---
Portable chest Date: 05/15/2017 Clinical history: Ventilator Comparison: 05/14/2017 Technique: Portable AP sitting chest Findings: The heart is minimally enlarged with left subclavian atrioventricular pacemaker. The supportive devices remain in satisfactory position. The lungs remain overexpanded with reduction in the pleural parenchymal findings at the right lung base. More stable findings in the left mid to lower lung zone. This area is obscured by overlapping supportive devices. Stable mediastinum with prior thoracic kyphoplasty. Impression: COPD with minimal reduction in the atelectasis/infiltration/edema in the right lung with minimal decrease in the size of the right pleural effusion. More stable findings in the left lung with left subclavian atrioventricular permanent pacemaker. PROCEDURE INTERPRETED AT [facility] DEPARTMENT OF RADIOLOGY Final Report Signed by: Dr. Aniya Milligan
--- NOTE | 2017-05-15 08:56 | General Surgery Progress Note ---
Assessment and Plan - Time spent with patient Time spent with patient: Less than 30 minutes (1) Chronic venous insufficiency Status: Chronic Assessment and plan: 05/15/2017. Patient remains on the ventilator at this time but very alert at this time. He continues to have some lower extremity swelling and the small blisters on the fourth and fifth toes are minimal at this time. I am little concerned about a blistering that is possible on the right heel at this time. Left looks in stable condition to this point. He is resting his legs on pillows and I am concerned this can create a problem. Current Visit: No Subjective Patient reports: Present: other (Patient remains on ventilator) Exam - Constitutional Vitals: Period Temp Pulse Resp BP Sys/Ivey Pulse Ox Last 24 Hr 96.4 F-99.4 F 78-104 12- 91-145/52-93 87-100 General appearance: mild distress - Head Head exam: Present: normal inspection - ENT ENT exam: Present: normal exam - Neck Neck exam: Present: normal inspection - Respiratory Respiratory exam: Present: rales, rhonchi - Cardiovascular Cardiovascular exam: Present: RRR - GI/Abdominal GI/Abdominal exam: Present: hypoactive bowel sounds, soft - Extremities Exam Extremities exam: Present: other (There remains some blistering of the right fifth and fourth toes and questionably of the right heel.) - Back Exam Back exam: Present: normal inspection - Neurological Exam Neurological exam: Present: alert, oriented X3, CN II-XII intact - Skin Skin exam: Present: normal color, warm, dry Results - Labs CBC & BMP: 05/15/17 04:25 05/15/17 04:25 Lab Results: I have reviewed the past 24 hour labs Quality Measures - Stroke Symptom Onset Unknown: No
[2017-05-15] MEDS: POTASSIUM CHLORIDE 20 MEQ PACK PO SCH (09:10)
[2017-05-15] MEDS: FUROSEMIDE 20 MG/2 ML VIAL IV SCH (09:10)
[2017-05-15] MEDS: POLYETHYLENE GLYCOL POWDER 17 GM PACK PO SCH (09:11)
[2017-05-15] MEDS: BISOPROLOL 5 MG TABLET PO SCH (09:12)
[2017-05-15] MEDS: THIAMINE 100 MG TABLET PO SCH (09:12)
[2017-05-15] MEDS: fentaNYL 12 MCG/HR PATCH TRANSDERM SCH (09:12)
[2017-05-15] MEDS: miSOPROStol 200 MCG TABLET PO SCH (09:12)
[2017-05-15] MEDS: MULTIVITAMIN (CENTRUM) TABLET PO SCH (09:13)
[2017-05-15] MEDS: SPIRONOLACTONE 25 MG TABLET PO SCH ×2 (09:13→21:49)
[2017-05-15] MEDS: ASCORBIC ACID 500 MG TABLET PO SCH (09:13)
[2017-05-15] MEDS: FOLIC ACID 1 MG TABLET PO SCH (09:13)
[2017-05-15] MEDS: LIDOCAINE 5% PATCH TRANSDERM SCH (09:13)
[2017-05-15] MEDS: IMIPRAMINE 25 MG TABLET PO SCH (09:13)
[2017-05-15] MEDS: PANTOPRAZOLE 40 MG TABLET PO SCH (09:14)
[2017-05-15 11:06] LABS: ABG Base Excess 6.8 MMOL/L (-2.5-2.5); ABG HCO3 30.5 MMOL/L (20-26); ABG PCO2 62.4 MM HG (35-48); ABG PH 7.349 (7.35-7.45); ABG PO2 61.5 MM HG (80-95); ABG TCO2 31.4 MMOL/L (23-27)
--- NOTE | 2017-05-15 11:27 | Pulmonology Progress Note ---
Pulmonary - PN: Subj Interval history: Mr. Fischer is a 66-year-old white male who we saw in initial pulmonary consultation on 05/04/2017. At that time, our impressions were: #1: Acute altered mental status most likely secondary to #2 but consider other causes #2: Acute urinary tract infection #3: Ankylosing spondylitis with probable spinal stenosis. Anatomy and pain limited mobility. #4: Peripheral sensory neuropathy. His symptoms have gradually worsened over time. #5: Chronic venous stasis of the lower extremities. #6: Vitamin B deficiency. #7: Past history of tobacco abuse #8: COPD/asthma #9: Past history of high blood pressure #10: Hypothyroidism #11: Bilateral pleural effusions of unknown etiology #12: Dual-chamber cardiac pacemaker #13: History of marijuana use #14: History of compression fractures with chronic pain. Now under the care of Dr. Patel. #15: See past history 05/05/2017. Patient was seen today along with his . The patient is awake, alert, and oriented this morning. His theophylline was discontinued per the 's request yesterday. Of note, his theophylline level was 7.9. He has been seen in pain management consultation with Dr. Patel. His note has been reviewed. We appreciate his assistance. He will be out of town for the next few days, but upon his return we will begin tapering the patient's pain medications as per his note. Patient's lower extremities continue to be edematous. We will give Mr. Keith a one-time dose of IV Lasix. We will start Zaroxolyn 5 mg p.o. daily and KCl 20 mEq daily. Daily BMP/magnesium has been ordered. The patient's echocardiogram this admission as read by Dr. Vega showed an estimated EF of 60%, approximately 1+ mitral and aortic regurgitation , 1-2+ tricuspid regurgitation with a right ventricular systolic pressure of 60 mmHg plus the right atrial pressure suggesting severe pulmonary hypertension. This is a significant change from the echocardiogram done 04/12/[address] Nova which showed an EF estimated at 60%, grade 1 diastolic dysfunction, normal to mildly elevated filling pressures, mild aortic valve regurgitation, moderate ventricular hypertrophy with no demonstrable increase in right-sided pressure, and tricuspid regurgitation velocity suggesting a right ventricular systolic pressure of 23 mmHg plus the right atrial pressure. On chest x-ray today, the pleural effusion is improved. This patient has great difficulty laying flat given his ankylosing spondylitis, so we will begin diuresing him with his Zaroxolyn and see if his pleural effusion will resolve rather than proceed with CT PE protocol at this time. We will repeat a chest x-ray on Monday. Doppler venograms showed no evidence of dizziness thrombophlebitis. Abdominal ultrasound showed no ascites. Medications have been reviewed. Labs have been reviewed. White count is 5900 with a normal differential; H&H 10.7/33.6; platelet count 172,000; creatinine 0.40, BUN 8, electrolytes are normal; magnesium 2.5 Microbiology has been reviewed. Urine culture has grown E. coli. He is on Fortaz and Levaquin. Urine drug screen was positive for benzodiazepines and cannabinoids 05/08/2017 during the weekend the patient deteriorated. He developed a severe acidosis and a markedly elevated PCO2 and required movement to CCU along with intubation mechanical ventilation. He is still on the ventilator.His chest x- ray shows bibasilar infiltrates and some faint infiltrates in the right upper lung. Still has a small right pleural effusion. This is unexpected and I have to wonder about aspiration. We will plan to evaluate with fiberoptic bronchoscopy in the morning. His only positive cultures E. coli from his urine. ABGs have been ordered but are pending. Potassium is low at 3.0 and the patient will be placed on protocol. Natruretic peptide is 92. H&H is 10.8/ 31.9. White count is 8674.4 segs 7 lymphs and 16.1 monocytes. EKG shows no acute changes. At this point I am not entirely clear why the patient deteriorated so rapidly. 05/09/2017. Today's chest x-ray is better. Patient has cardiomegaly. He has bilateral alveolar and interstitial changes and he has a small to moderate size right pleural effusion. He is alert and oriented and can cooperate. Earlier today I evaluated patient with fiberoptic bronchoscopy. See the report. He had some mild erosive slightly friable bronchitis in the right lower lung that had the appearance of a recent pneumonia. This may be the etiology of his pleural effusion. The patient had only a small amount of sputum and both bronchial trees. I did not see any food or gastric content. Today the patient will go to stage II of his weaning protocol. The only positive culture is E. coli from the urine. ABGs on mechanical ventilation FiO2 40% shows a pH of 7.52 , PCO2 41.4, PO2 of 84.1 and a bicarb of 32.8. H&H is gradually dropping to 10.3/29.3. White count is 8276 segs and platelets are 141,000. Potassium is low at 3.2 and is being replaced. Theophylline level is 7.4. Last night the patient had atrial fib that required Cardizem and amiodarone. The patient's most recent echocardiogram (05/04/2017) showed pulmonary artery pressure above 70 whereas a month or so ago his pulmonary artery pressures were normal. We will repeat this today. Cardiology is seeing the patient in the past and placed cardiac pacemaker. Will last for follow-up evaluation. Also we have asked that his magnesium be checked. 05/10/2017. Patient's on stage III of the weaning protocol. Because of his anatomy chest x-ray is difficult to interpret. He has old pleural scarring on the right where he has had a previous pleural stripping. He has persistent pleural effusion on the right. Etiology of this is undetermined. His echocardiogram does not support congestive heart failure. He has no ascites on ultrasound of the abdomen. I discussed the possibility of thoracentesis by interventional radiologist with the and she is agreeable. We should send pleural fluid specimens for cytology, H&H, white blood cell count with differential, total protein, SGOT, LDH, Gram stain with bacterial culture, AFB stains and cultures. 05/15/2017. Patient is alert and oriented. His chest x-ray is better. His ABGs better. His lab is stable. He has been extubated today. Follow-up ABGs are pending. Findings and intentions were discussed with the patient's . Tuan Philip nurse practitioner was present Exam (Progress Note) - Constitutional Vitals: Period Temp Pulse Resp BP Sys/Ivey Pulse Ox Last 24 Hr 5 F-98.0 F 83-105 18- 118-166/66-83 88-99 Exam: Neurologic. . Alert. Oriented. He cooperates when he is awake Chest. Loose large airway congestion Heart no gallop Abdomen is obese, but nontender and nondistended; bowel sounds are positive 4 Extremities with nothing to suggest acute deep venous thrombophlebitis; bilateral pedal and pretibial edema; chronic venous stasis changes Neck. Also normal curvature secondary to ankylosing spondylitis. Lymphatics. No submandibular cervical supraclavicular or epitrochlear adenopathy. The remainder the exam is noncontributory Plan. 05/08/2007 1. Fiberoptic bronchoscopy in the morning 2. Mechanical ventilation weaning protocol and physical therapy protocol 3. See today's note, above 05/09/2017. 1. Fiberoptic bronchoscopy showed no evidence of aspiration see report 2. Stage II to weaning protocol 3. Repeat echocardiogram with attention to recent onset of pulmonary hypertension 4. Replace potassium 5. Check magnesium 6. Daily chest x-ray ABGs and lab 7. Watch slow decline of H&H 8. Check bronchoscopy specimens 9. Cardiology consult 05/10/2017. 1. See today's note, above 2. Appreciate cardiology consultation 3. Fiberoptic bronchoscopy in the morning 4. Consult interventional radiologist for thoracentesis. Because of the patient's ankylosing spondylitis and anatomy of this will be difficult. See today's note above concerning studies when needed. This was discussed with the and she is agreeable 05/15/2017. 1. See today's note, above 2. Extubated 05/15/2017. Follow-up ABGs pending 3. Follow chest x-ray, ABGs and lab. Exam (Progress Note) - Constitutional Vitals: Period Temp Pulse Resp BP Sys/Ivey Pulse Ox Last 24 Hr 96.4 F-99.4 F 78-102 12-29 87-129/52-93 87-100 Results - Labs CBC & BMP: 05/15/17 04:25 05/15/17 04:25
[2017-05-15] MEDS: VANCOMYCIN INJ 1,750 MG in SODIUM CHLORIDE 0.9% 500 ML IV SCH (12:00)
--- NOTE | 2017-05-15 12:43 | Hospitalist Progress Note ---
Assessment and Plan (1) Altered mental status Status: Resolved Assessment and plan: Continues to improve Current Visit: No Qualifiers: Altered mental status type: disorientation Qualified Code(s): R41.0 - Disorientation, unspecified (2) Hypoxia Status: Acute Current Visit: Yes (3) Pleural effusion Status: Acute Assessment and plan: s/p thoracentesis, appeared exudative Current Visit: Yes (4) UTI (urinary tract infection) Status: Acute Assessment and plan: Urine culture growing E.coli On fortaz and vancomycin Current Visit: Yes (5) Lower extremity edema Status: Acute Current Visit: No (6) Dysphagia, pharyngoesophageal Status: Acute Current Visit: Yes (7) Chronic venous insufficiency Status: Chronic Current Visit: No (8) Respiratory failure Status: Acute Assessment and plan: Pulmonary managing Extubated today Current Visit: Yes Hospitalist: Subjective Interval history: No acute events overnight. Patient has been extubated since my rounds this morning. Exam - Constitutional Vitals: Period Temp Pulse Resp BP Sys/Ivey Pulse Ox Last 24 Hr 96.4 F-99.4 F 78-102 12-29 87-129/52-95 87-100 General appearance: normal weight - Head Head exam: Present: normocephalic, atraumatic - Eye Eye exam: Present: EOMI Pupils: Present: SAMSON - ENT ENT exam: Present: normal exam - Neck Neck exam: Present: normal inspection - Respiratory Respiratory exam: Present: clear to auscultation bilaterally. Absent: rhonchi, wheezes - Cardiovascular Cardiovascular exam: Present: regular rate and rhythm - GI/Abdominal GI/Abdominal exam: Present: normal bowel sounds, soft. Absent: tenderness, rebound - Extremities Exam Extremities exam: Present: normal inspection - Back Exam Back exam: Present: normal inspection - Neurological Exam Neurological exam: Present: alert - Psychiatric Psychiatric exam: Absent: agitated, anxious - Skin Skin exam: Present: warm, intact Results - Labs CBC & BMP: 05/15/17 04:25 05/15/17 04:25 Quality Measures - Stroke Symptom Onset Unknown: No
[2017-05-15 13:53] LABS: ABG Base Excess 7.7 MMOL/L (-2.5-2.5); ABG HCO3 31.4 MMOL/L (20-26); ABG Oxygen Saturation 93.7 % (95-100); ABG PCO2 55.7 MM HG (35-48); ABG PH 7.394 (7.35-7.45); ABG PO2 70.4 MM HG (80-95); ABG TCO2 31.3 MMOL/L (23-27)
[2017-05-15] MEDS: CLORAZEPATE 7.5 MG TABLET PO SCH (21:49)
[2017-05-15] MEDS: DILTIAZEM INJ 100 MG in SODIUM CHLORIDE 0.9% 100 ML IV SCH (21:52)
[2017-05-16] MEDS: INSULIN LISPRO 100 UNIT/ML SUBCUT SCH ×4 (00:27→19:17)
[2017-05-16] MEDS: ALBUTEROL/IPRATROPIUM 3 ML NEB RESP TX SCH ×4 (01:00→17:54)
[2017-05-16] MEDS: PROPOFOL 1,000 MG/100 ML BOTTLE IV SCH (02:26)
[2017-05-16 03:42] LABS: ABG Base Excess 8.4 MMOL/L (-2.5-2.5); ABG HCO3 33.7 MMOL/L (20-26); ABG Oxygen Saturation 93.9 % (95-100); ABG PCO2 50.7 MM HG (35-48); ABG PO2 65.4 MM HG (80-95); ABG TCO2 35.2 MMOL/L (23-27); Allen Test Positive
[2017-05-16] MEDS: ENOXAPARIN 40 MG/0.4 ML SYRINGE SUBCUT SCH (04:19)
[2017-05-16] MEDS: ERYTHROMYCIN INJ 250 MG in SODIUM CHLORIDE 0.9% 100 ML IV SCH ×4 (04:19→21:08)
[2017-05-16 05:02] LABS: Basophils % 0.4 % (0.0-0.8); Eosinophils # 0.2 10*3/uL (0.0-0.87); Eosinophils % 1.8 % (0.00-10.9); Hematocrit 28.3 VOL% (42.0-52.0); Hemoglobin 9.2 GM/DL (14.0-18.0); Immature Granulocytes % 1.2 %; Immature Granulocytes Absolute 0.11 #; Lymphocytes # 0.7 10*3/uL (1.4-4.0); Lymphocytes % 7.8 % (21.2-54.2); Mean Corpuscular HGB Conc 32.5 GM/DL (32-36); Mean Corpuscular Hemoglobin 32 PG (27-34); Mean Corpuscular Volume 99.3 FL (87-102); Mean Platelet Volume 11.7 FL (9.6-12.0); Monocytes % 10.8 % (1.7-12.7); Platelet Count 242 T/CUMM (130-400); Red Blood Count 2.85 MC/CUMM (3.8-5.5); Red Cell Distribution Width 13.1 % (9.3-17.3)
[2017-05-16 05:34] LABS: Blood Urea Nitrogen 10 MG/DL (7-18); Calcium 8.2 MG/DL (8.5-10.1); Glucose 95 MG/DL (74-106); Magnesium 2.3 MG/DL (1.8-2.4); Osmolality,Calculated 277.4 MOS/KG (273-304); Potassium 4.1 MMOL/L (3.5-5.1); Sodium 140 MMOL/L (136-145)
[2017-05-16] MEDS: LEVOTHYROXINE 100 MCG TABLET PO SCH (06:17)
--- NOTE | 2017-05-16 08:30 | XRay Report ---
Portable chest Date: 05/16/2017 Clinical history: Ventilator Comparison: 05/15/2017 Technique: Portable AP sitting chest Findings: Stable cardiomegaly with left subclavian atrioventricular permanent pacemaker. Retraction of the nasogastric tube into the distal esophagus with overlapping densities and interval removal of the endotracheal tube. Progressive pleural and parenchymal findings the right mid-lower lung zone with similar decreased findings in the left. Pleural thickening laterally in the left hemithorax. Prior thoracic kyphoplasty. Impression: Persistent cardiomegaly with left subclavian atrioventricular permanent pacemaker. Progressive atelectasis/edema/infiltration in the right mid to lower lung zone with larger small to moderate right pleural effusion. Similar decreased findings in the left. Retraction of the nasogastric tube in the distal esophagus. The tip should be advanced further into the stomach as discussed with the patient's nurse's Vani at 8:20 AM on 05/16/2017. PROCEDURE INTERPRETED AT [facility] DEPARTMENT OF RADIOLOGY Final Report Signed by: Dr. Aniya Milligan
[2017-05-16] MEDS: LINACLOTIDE 145 MCG CAPSULE PO SCH (09:56)
[2017-05-16] MEDS: THIAMINE 100 MG TABLET PO SCH (09:57)
[2017-05-16] MEDS: POTASSIUM CHLORIDE 20 MEQ PACK PO SCH (09:57)
[2017-05-16] MEDS: miSOPROStol 200 MCG TABLET PO SCH (09:57)
[2017-05-16] MEDS: PANTOPRAZOLE 40 MG TABLET PO SCH (09:57)
[2017-05-16] MEDS: MULTIVITAMIN (CENTRUM) TABLET PO SCH (09:57)
[2017-05-16] MEDS: BISOPROLOL 5 MG TABLET PO SCH (09:57)
[2017-05-16] MEDS: SPIRONOLACTONE 25 MG TABLET PO SCH ×2 (09:57→21:05)
[2017-05-16] MEDS: ASCORBIC ACID 500 MG TABLET PO SCH (09:57)
[2017-05-16] MEDS: IMIPRAMINE 25 MG TABLET PO SCH (09:57)
[2017-05-16] MEDS: LIDOCAINE 5% PATCH TRANSDERM SCH (09:58)
[2017-05-16] MEDS: FUROSEMIDE 20 MG/2 ML VIAL IV SCH (09:58)
[2017-05-16] MEDS: FOLIC ACID 1 MG TABLET PO SCH (09:58)
[2017-05-16] MEDS: POLYETHYLENE GLYCOL POWDER 17 GM PACK PO SCH (10:15)
[2017-05-16] MEDS: VANCOMYCIN INJ 1,750 MG in SODIUM CHLORIDE 0.9% 500 ML IV SCH (11:00)
--- NOTE | 2017-05-16 12:47 | Pulmonology Progress Note ---
Pulmonary - PN: Subj Interval history: Tuan Philip, AGPCNP-, acting as scribe for Dr. Bala Ramírez Mr. Fischer is a 66-year-old white male who we saw in initial pulmonary consultation on 05/04/2017. At that time, our impressions were: #1: Acute altered mental status most likely secondary to #2 but consider other causes #2: Acute urinary tract infection #3: Ankylosing spondylitis with probable spinal stenosis. Anatomy and pain limited mobility. #4: Peripheral sensory neuropathy. His symptoms have gradually worsened over time. #5: Chronic venous stasis of the lower extremities. #6: Vitamin B deficiency. #7: Past history of tobacco abuse #8: COPD/asthma #9: Past history of high blood pressure #10: Hypothyroidism #11: Bilateral pleural effusions of unknown etiology #12: Dual-chamber cardiac pacemaker #13: History of marijuana use #14: History of compression fractures with chronic pain. Now under the care of Dr. Patel. #15: See past history 05/05/2017. Patient was seen today along with his . The patient is awake, alert, and oriented this morning. His theophylline was discontinued per the 's request yesterday. Of note, his theophylline level was 7.9. He has been seen in pain management consultation with Dr. Patel. His note has been reviewed. We appreciate his assistance. He will be out of town for the next few days, but upon his return we will begin tapering the patient's pain medications as per his note. Patient's lower extremities continue to be edematous. We will give Mr. Keith a one-time dose of IV Lasix. We will start Zaroxolyn 5 mg p.o. daily and KCl 20 mEq daily. Daily BMP/magnesium has been ordered. The patient's echocardiogram this admission as read by Dr. Vega showed an estimated EF of 60%, approximately 1+ mitral and aortic regurgitation , 1-2+ tricuspid regurgitation with a right ventricular systolic pressure of 60 mmHg plus the right atrial pressure suggesting severe pulmonary hypertension. This is a significant change from the echocardiogram done 04/12/[address] Nova which showed an EF estimated at 60%, grade 1 diastolic dysfunction, normal to mildly elevated filling pressures, mild aortic valve regurgitation, moderate ventricular hypertrophy with no demonstrable increase in right-sided pressure, and tricuspid regurgitation velocity suggesting a right ventricular systolic pressure of 23 mmHg plus the right atrial pressure. On chest x-ray today, the pleural effusion is improved. This patient has great difficulty laying flat given his ankylosing spondylitis, so we will begin diuresing him with his Zaroxolyn and see if his pleural effusion will resolve rather than proceed with CT PE protocol at this time. We will repeat a chest x-ray on Monday. Doppler venograms showed no evidence of dizziness thrombophlebitis. Abdominal ultrasound showed no ascites. Medications have been reviewed. Labs have been reviewed. White count is 5900 with a normal differential; H&H 10.7/33.6; platelet count 172,000; creatinine 0.40, BUN 8, electrolytes are normal; magnesium 2.5 Microbiology has been reviewed. Urine culture has grown E. coli. He is on Fortaz and Levaquin. Urine drug screen was positive for benzodiazepines and cannabinoids 05/08/2017. During the weekend the patient deteriorated. He developed a severe acidosis and a markedly elevated PCO2 and required movement to CCU along with intubation mechanical ventilation. He is still on the ventilator.His chest x- ray shows bibasilar infiltrates and some faint infiltrates in the right upper lung. Still has a small right pleural effusion. This is unexpected and I have to wonder about aspiration. We will plan to evaluate with fiberoptic bronchoscopy in the morning. His only positive cultures E. coli from his urine. ABGs have been ordered but are pending. Potassium is low at 3.0 and the patient will be placed on protocol. Natruretic peptide is 92. H&H is 10.8/ 31.9. White count is 8674.4 segs 7 lymphs and 16.1 monocytes. EKG shows no acute changes. At this point I am not entirely clear why the patient deteriorated so rapidly. 05/09/2017. Today's chest x-ray is better. Patient has cardiomegaly. He has bilateral alveolar and interstitial changes and he has a small to moderate size right pleural effusion. He is alert and oriented and can cooperate. Earlier today I evaluated patient with fiberoptic bronchoscopy. See the report. He had some mild erosive slightly friable bronchitis in the right lower lung that had the appearance of a recent pneumonia. This may be the etiology of his pleural effusion. The patient had only a small amount of sputum and both bronchial trees. I did not see any food or gastric content. Today the patient will go to stage II of his weaning protocol. The only positive culture is E. coli from the urine. ABGs on mechanical ventilation FiO2 40% shows a pH of 7.52 , PCO2 41.4, PO2 of 84.1 and a bicarb of 32.8. H&H is gradually dropping to 10.3/29.3. White count is 8276 segs and platelets are 141,000. Potassium is low at 3.2 and is being replaced. Theophylline level is 7.4. Last night the patient had atrial fib that required Cardizem and amiodarone. The patient's most recent echocardiogram (05/04/2017) showed pulmonary artery pressure above 70 whereas a month or so ago his pulmonary artery pressures were normal. We will repeat this today. Cardiology is seeing the patient in the past and placed cardiac pacemaker. Will last for follow-up evaluation. Also we have asked that his magnesium be checked. 05/10/2017. Patient's on stage III of the weaning protocol. Because of his anatomy chest x-ray is difficult to interpret. He has old pleural scarring on the right where he has had a previous pleural stripping. He has persistent pleural effusion on the right. Etiology of this is undetermined. His echocardiogram does not support congestive heart failure. He has no ascites on ultrasound of the abdomen. I discussed the possibility of thoracentesis by interventional radiologist with the and she is agreeable. We should send pleural fluid specimens for cytology, H&H, white blood cell count with differential, total protein, SGOT, LDH, Gram stain with bacterial culture, AFB stains and cultures. 05/11/2017. Patient was seen today along with his nurse. He remains on the ventilator weaning protocol. He is on stage III. He is progressing well. Yesterday the patient underwent thoracentesis by interventional radiology where approximately 1 L fluid was removed. On review of the pleural fluid, this was an exudate. On 05/09/2017 the patient underwent fiberoptic bronchoscopy. Cultures are growing gram-positive cocci. ID is pending. There has been no reportable AFB or fungus. Bronchoscopy lavages were class I. The patient looks strong today and ABGs on an FiO2 of 40% with mechanical ventilation showed PCO2 of 43 with a PO2 of 123.0. We have asked for the patient be placed on a T-tube trial with ABGs to be drawn 1 hour later and call to us. He remains on IV Aminophyllin. Theophylline level today is pending. Lower extremities continue to have edema. We are going to start Lasix 20 mg IV every 12 hours and placed him on a potassium replacement protocol. We discussed all these things with the patient's today to her understanding and she is in agreement with our plan of care. Medications have been reviewed. Labs have been reviewed. White count is 8400 with 76.7% segs; H&H 10.1/30.9; platelet count 188,000; creatinine 0.30, BUN 4, electrolytes are normal 05/12/2017. The patient was seen today along with his nurse, Dieter, and respiratory therapist, Quinton. Yesterday we tried the patient on a T-tube trial. His PCO2 elevated at 67.6. Placed him back on the ventilator and started Diamox. This morning ABGs on an FiO2 of 40% and mechanical ventilation showed pH of 7.468, PCO2 52.0, PaO2 121.0, bicarb 35.8, and oxygen saturation 98.9%. Will continue with T-tube trials and advance as tolerated. On 05/07/2017 patient with fiberoptic bronchoscopy. Cultures from this around MRSA. Previous urine culture grew E. coli. Will repeat urinalysis today. To cover for MRSA readiness her vancomycin but has pharmacology to dose this. He is presently on Levaquin and Fortaz. We see no reason to continue the Levaquin in the face of vancomycin so this will be discontinued. Today's chest x-ray is improved. He continues to have lower extremity edema. This is been discussed with Dr. Nelson we have coordinated our care. We will adjust his Lasix to 20 mg IV push every 12 hours. He has required IV Aminophyllin secondary to high- pitched peripheral wheezes. His theophylline today is elevated at 23.2. I am unsure the cause of his significant drop from yesterday considering he is on the same dose that he has been for the past several days. Nonetheless, we will stop his IV Aminophyllin and continue to follow daily theophylline levels. He is presently on stage V the weaning protocol. We are advancing this as tolerated. He is on potassium replacement protocol as well. He is on physical therapy protocol too. Medications have been reviewed. Labs been reviewed. 05/15/2017. Patient is alert and oriented. His chest x-ray is better. His ABGs better. His lab is stable. He has been extubated today. Follow-up ABGs are pending. Findings and intentions were discussed with the patient's . Tuan Philip nurse practitioner was present. 05/16/2017. The patient was extubated 05/15/2017. He has done well from a pulmonary standpoint since that time. He is not quite back to his baseline mentality yet. This should improve over time. He is stating he wants to be discharged home, but we have informed him that that is not in his best interest at this time. Bronchoscopy culture from 05/09/2017 grew MRSA. He is on vancomycin and pharmacology is managing this. Vancomycin trough yesterday was elevated at 22.9. He is also on ceftazidime to cover for gram negatives. MRSA screen of the nares is positive, so Bactroban has been started. He is for speech therapy evaluation today. Medications have been reviewed. Labs been reviewed. White count is 9000 with 70.0% segs; H&H 9.2/28.3; platelet count 242,000; creatinine less than 0.20, BUN 10, electrolytes are normal ABGs this morning on an FiO2 of 28% show pH 7.440, PCO2 50.7, PO2 65.4, bicarb 33.7, oxygen saturation 93.9% Exam (Progress Note) - Constitutional Vitals: Period Temp Pulse Resp BP Sys/Ivey Pulse Ox Last 24 Hr 97.6 F-98.6 F 86-102 20-36 81-123/39-73 88-100 Exam: Chest is fairly clear Heart no gallop Abdomen is obese, but nontender and nondistended; bowel sounds are positive 4 Extremities with nothing to suggest acute deep venous thrombophlebitis; bilateral pedal and pretibial edema; chronic venous stasis changes Psychiatric presently oriented to at least person and place Neurologic unchanged Plan: Continue present plan of care. Daily BMP/magnesium. Pharmacology is managing vancomycin. Speech therapy evaluation today. Continue physical therapy/occupational therapy efforts. See orders. Results - Labs CBC & BMP: 05/16/17 04:06 05/16/17 04:06 Specialty Discharge - Follow Up or Referrals Follow up with: Bala Ramírez MD [Primary Care Provider] - 1 Week (Needs appt with Dr. Wilson office for pt to be seen within 1 week of discharge date.)
[2017-05-16] MEDS: LORazepam 2 MG/1 ML VIAL IV PRN ×2 (13:30→21:05)
--- NOTE | 2017-05-16 14:03 | Hospitalist Progress Note ---
Assessment and Plan (1) Altered mental status Status: Resolved Assessment and plan: Remains slightly confused, but he is oriented x3 Current Visit: No Qualifiers: Altered mental status type: disorientation Qualified Code(s): R41.0 - Disorientation, unspecified (2) Hypoxia Status: Acute Current Visit: Yes (3) Pleural effusion Status: Acute Assessment and plan: s/p thoracentesis, appeared exudative Current Visit: Yes (4) UTI (urinary tract infection) Status: Acute Assessment and plan: Urine culture growing E.coli On fortaz and vancomycin Current Visit: Yes (5) Lower extremity edema Status: Acute Assessment and plan: Continue lasix Current Visit: No (6) Dysphagia, pharyngoesophageal Status: Acute Assessment and plan: s/p EGD by GI Current Visit: Yes (7) Chronic venous insufficiency Status: Chronic Current Visit: No (8) Respiratory failure Status: Acute Assessment and plan: Pulmonary managing Extubated 05/15/17 Current Visit: Yes Hospitalist: Subjective Interval history: No acute events overnight. Patient was extubated yesterday. He looks well today. He is oriented x3, but is confused about his current situation. He failed his speech evaluation today, it will be repeated tomorrow Exam - Constitutional Vitals: Period Temp Pulse Resp BP Sys/Ivey Pulse Ox Last 24 Hr 97.6 F-99.5 F 74-102 14-36 78-123/39-77 88-100 General appearance: normal weight - Head Head exam: Present: normocephalic, atraumatic - Eye Eye exam: Present: EOMI Pupils: Present: SAMSON - ENT ENT exam: Present: normal exam - Neck Neck exam: Present: normal inspection - Respiratory Respiratory exam: Present: clear to auscultation bilaterally. Absent: rhonchi, wheezes - Cardiovascular Cardiovascular exam: Present: regular rate and rhythm - GI/Abdominal GI/Abdominal exam: Present: normal bowel sounds, soft. Absent: tenderness, rebound - Extremities Exam Extremities exam: Present: normal inspection - Back Exam Back exam: Present: normal inspection - Neurological Exam Neurological exam: Present: alert, oriented X3 - Psychiatric Psychiatric exam: Present: normal affect, normal mood - Skin Skin exam: Present: warm, intact Results - Labs CBC & BMP: 05/16/17 04:06 05/16/17 04:06 Quality Measures - Stroke Symptom Onset Unknown: No Specialty Discharge - Follow Up or Referrals Follow up with: Bala Ramírez MD [Primary Care Provider] - 1 Week (Needs appt with Dr. Wilson office for pt to be seen within 1 week of discharge date.)
[2017-05-16] MEDS: MUPIROCIN 2% OINT 22 GM TUBE TOP SCH ×2 (15:13→21:05)
[2017-05-16] MEDS: CLORAZEPATE 7.5 MG TABLET PO SCH (21:05)
[2017-05-16] MEDS: DILTIAZEM INJ 100 MG in SODIUM CHLORIDE 0.9% 100 ML IV SCH (21:09)
[2017-05-17] MEDS: ALBUTEROL/IPRATROPIUM 3 ML NEB RESP TX SCH ×4 (01:11→20:49)
[2017-05-17] MEDS: INSULIN LISPRO 100 UNIT/ML SUBCUT SCH ×4 (02:25→17:42)
[2017-05-17] MEDS: ERYTHROMYCIN INJ 250 MG in SODIUM CHLORIDE 0.9% 100 ML IV SCH ×4 (02:26→23:13)
[2017-05-17] MEDS: PROPOFOL 1,000 MG/100 ML BOTTLE IV SCH ×3 (02:27→18:45)
[2017-05-17] MEDS: VANCOMYCIN INJ 1,750 MG in SODIUM CHLORIDE 0.9% 500 ML IV SCH ×2 (03:01→22:45)
[2017-05-17 05:16] LABS: Basophils # 0.1 10*3/uL (0.0-0.2); Basophils % 0.7 % (0.0-0.8); Eosinophils # 0.2 10*3/uL (0.0-0.87); Hematocrit 32.1 VOL% (42.0-52.0); Hemoglobin 10.3 GM/DL (14.0-18.0); Immature Granulocytes % 0.7 %; Immature Granulocytes Absolute 0.07 #; Lymphocytes # 0.8 10*3/uL (1.4-4.0); Lymphocytes % 7.5 % (21.2-54.2); Mean Corpuscular HGB Conc 32.1 GM/DL (32-36); Mean Corpuscular Hemoglobin 33 PG (27-34); Mean Corpuscular Volume 101.3 FL (87-102); Mean Platelet Volume 11.6 FL (9.6-12.0); Monocytes # 1.1 10*3/uL (0.11-0.8); Monocytes % 11.4 % (1.7-12.7); Neutrophils # 7.7 10*3/uL (1.4-7.4); Neutrophils % 77.7 % (38.7-73.9); Platelet Count 300 T/CUMM (130-400); Red Blood Count 3.17 MC/CUMM (3.8-5.5); Red Cell Distribution Width 13.2 % (9.3-17.3)
[2017-05-17] MEDS: ENOXAPARIN 40 MG/0.4 ML SYRINGE SUBCUT SCH (05:50)
[2017-05-17 06:00] LABS: Calcium 8.5 MG/DL (8.5-10.1); Magnesium 2.3 MG/DL (1.8-2.4); Osmolality,Calculated 278.5 MOS/KG (273-304); Potassium 4.3 MMOL/L (3.5-5.1)
[2017-05-17] MEDS: LEVOTHYROXINE 100 MCG TABLET PO SCH (07:34)
--- NOTE | 2017-05-17 09:34 | XRay Report ---
History: Pleural effusion Date: 05/17/2017 Study: Chest x-ray AP portable Comparison exam: 05/16/2017 The nasogastric tube remains in place. The cardiomediastinal silhouette is unchanged. A left subclavian dual-lead pacemaker device is present as before. There is some patchy and hazy edema/infiltrate in the lower lungs without change. There is bilateral pleural effusion without change. Osseous structures are similar. There is radiopaque cement overlying the lower thoracic spine level related to kyphoplasty. Impression: No gross change from the previous study PROCEDURE INTERPRETED AT [facility] DEPARTMENT OF RADIOLOGY Final Report Signed by: Dr. Lea Sawant
[2017-05-17] MEDS: BISOPROLOL 5 MG TABLET PO SCH (09:36)
[2017-05-17] MEDS: LINACLOTIDE 145 MCG CAPSULE PO SCH (09:36)
[2017-05-17] MEDS: THIAMINE 100 MG TABLET PO SCH (09:37)
[2017-05-17] MEDS: ASCORBIC ACID 500 MG TABLET PO SCH (09:37)
[2017-05-17] MEDS: IMIPRAMINE 25 MG TABLET PO SCH (09:38)
[2017-05-17] MEDS: PANTOPRAZOLE 40 MG TABLET PO SCH (09:39)
[2017-05-17] MEDS: POTASSIUM CHLORIDE 20 MEQ PACK PO SCH (09:39)
[2017-05-17] MEDS: POLYETHYLENE GLYCOL POWDER 17 GM PACK PO SCH (09:40)
[2017-05-17] MEDS: LIDOCAINE 5% PATCH TRANSDERM SCH (09:40)
[2017-05-17] MEDS: FOLIC ACID 1 MG TABLET PO SCH (09:41)
[2017-05-17] MEDS: MULTIVITAMIN (CENTRUM) TABLET PO SCH (09:42)
[2017-05-17] MEDS: miSOPROStol 200 MCG TABLET PO SCH (09:42)
[2017-05-17] MEDS: MUPIROCIN 2% OINT 22 GM TUBE TOP SCH ×2 (09:44→22:40)
[2017-05-17] MEDS: SPIRONOLACTONE 25 MG TABLET PO SCH ×2 (09:44→22:40)
[2017-05-17] MEDS: FUROSEMIDE 20 MG/2 ML VIAL IV SCH (09:45)
--- NOTE | 2017-05-17 12:04 | Pulmonology Progress Note ---
Pulmonary - PN: Subj Interval history: Tuan Philip, AGPCNP-, acting as scribe for Dr. Bala Ramírez Mr. Fischer is a 66-year-old white male who we saw in initial pulmonary consultation on 05/04/2017. At that time, our impressions were: #1: Acute altered mental status most likely secondary to #2 but consider other causes #2: Acute urinary tract infection #3: Ankylosing spondylitis with probable spinal stenosis. Anatomy and pain limited mobility. #4: Peripheral sensory neuropathy. His symptoms have gradually worsened over time. #5: Chronic venous stasis of the lower extremities. #6: Vitamin B deficiency. #7: Past history of tobacco abuse #8: COPD/asthma #9: Past history of high blood pressure #10: Hypothyroidism #11: Bilateral pleural effusions of unknown etiology #12: Dual-chamber cardiac pacemaker #13: History of marijuana use #14: History of compression fractures with chronic pain. Now under the care of Dr. Patel. #15: See past history 05/05/2017. Patient was seen today along with his . The patient is awake, alert, and oriented this morning. His theophylline was discontinued per the 's request yesterday. Of note, his theophylline level was 7.9. He has been seen in pain management consultation with Dr. Patel. His note has been reviewed. We appreciate his assistance. He will be out of town for the next few days, but upon his return we will begin tapering the patient's pain medications as per his note. Patient's lower extremities continue to be edematous. We will give Mr. Keith a one-time dose of IV Lasix. We will start Zaroxolyn 5 mg p.o. daily and KCl 20 mEq daily. Daily BMP/magnesium has been ordered. The patient's echocardiogram this admission as read by Dr. Vega showed an estimated EF of 60%, approximately 1+ mitral and aortic regurgitation , 1-2+ tricuspid regurgitation with a right ventricular systolic pressure of 60 mmHg plus the right atrial pressure suggesting severe pulmonary hypertension. This is a significant change from the echocardiogram done 04/12/[address] Nova which showed an EF estimated at 60%, grade 1 diastolic dysfunction, normal to mildly elevated filling pressures, mild aortic valve regurgitation, moderate ventricular hypertrophy with no demonstrable increase in right-sided pressure, and tricuspid regurgitation velocity suggesting a right ventricular systolic pressure of 23 mmHg plus the right atrial pressure. On chest x-ray today, the pleural effusion is improved. This patient has great difficulty laying flat given his ankylosing spondylitis, so we will begin diuresing him with his Zaroxolyn and see if his pleural effusion will resolve rather than proceed with CT PE protocol at this time. We will repeat a chest x-ray on Monday. Doppler venograms showed no evidence of dizziness thrombophlebitis. Abdominal ultrasound showed no ascites. Medications have been reviewed. Labs have been reviewed. White count is 5900 with a normal differential; H&H 10.7/33.6; platelet count 172,000; creatinine 0.40, BUN 8, electrolytes are normal; magnesium 2.5 Microbiology has been reviewed. Urine culture has grown E. coli. He is on Fortaz and Levaquin. Urine drug screen was positive for benzodiazepines and cannabinoids 05/08/2017. During the weekend the patient deteriorated. He developed a severe acidosis and a markedly elevated PCO2 and required movement to CCU along with intubation mechanical ventilation. He is still on the ventilator.His chest x- ray shows bibasilar infiltrates and some faint infiltrates in the right upper lung. Still has a small right pleural effusion. This is unexpected and I have to wonder about aspiration. We will plan to evaluate with fiberoptic bronchoscopy in the morning. His only positive cultures E. coli from his urine. ABGs have been ordered but are pending. Potassium is low at 3.0 and the patient will be placed on protocol. Natruretic peptide is 92. H&H is 10.8/ 31.9. White count is 8674.4 segs 7 lymphs and 16.1 monocytes. EKG shows no acute changes. At this point I am not entirely clear why the patient deteriorated so rapidly. 05/09/2017. Today's chest x-ray is better. Patient has cardiomegaly. He has bilateral alveolar and interstitial changes and he has a small to moderate size right pleural effusion. He is alert and oriented and can cooperate. Earlier today I evaluated patient with fiberoptic bronchoscopy. See the report. He had some mild erosive slightly friable bronchitis in the right lower lung that had the appearance of a recent pneumonia. This may be the etiology of his pleural effusion. The patient had only a small amount of sputum and both bronchial trees. I did not see any food or gastric content. Today the patient will go to stage II of his weaning protocol. The only positive culture is E. coli from the urine. ABGs on mechanical ventilation FiO2 40% shows a pH of 7.52 , PCO2 41.4, PO2 of 84.1 and a bicarb of 32.8. H&H is gradually dropping to 10.3/29.3. White count is 8276 segs and platelets are 141,000. Potassium is low at 3.2 and is being replaced. Theophylline level is 7.4. Last night the patient had atrial fib that required Cardizem and amiodarone. The patient's most recent echocardiogram (05/04/2017) showed pulmonary artery pressure above 70 whereas a month or so ago his pulmonary artery pressures were normal. We will repeat this today. Cardiology is seeing the patient in the past and placed cardiac pacemaker. Will last for follow-up evaluation. Also we have asked that his magnesium be checked. 05/10/2017. Patient's on stage III of the weaning protocol. Because of his anatomy chest x-ray is difficult to interpret. He has old pleural scarring on the right where he has had a previous pleural stripping. He has persistent pleural effusion on the right. Etiology of this is undetermined. His echocardiogram does not support congestive heart failure. He has no ascites on ultrasound of the abdomen. I discussed the possibility of thoracentesis by interventional radiologist with the and she is agreeable. We should send pleural fluid specimens for cytology, H&H, white blood cell count with differential, total protein, SGOT, LDH, Gram stain with bacterial culture, AFB stains and cultures. 05/11/2017. Patient was seen today along with his nurse. He remains on the ventilator weaning protocol. He is on stage III. He is progressing well. Yesterday the patient underwent thoracentesis by interventional radiology where approximately 1 L fluid was removed. On review of the pleural fluid, this was an exudate. On 05/09/2017 the patient underwent fiberoptic bronchoscopy. Cultures are growing gram-positive cocci. ID is pending. There has been no reportable AFB or fungus. Bronchoscopy lavages were class I. The patient looks strong today and ABGs on an FiO2 of 40% with mechanical ventilation showed PCO2 of 43 with a PO2 of 123.0. We have asked for the patient be placed on a T-tube trial with ABGs to be drawn 1 hour later and call to us. He remains on IV Aminophyllin. Theophylline level today is pending. Lower extremities continue to have edema. We are going to start Lasix 20 mg IV every 12 hours and placed him on a potassium replacement protocol. We discussed all these things with the patient's today to her understanding and she is in agreement with our plan of care. Medications have been reviewed. Labs have been reviewed. White count is 8400 with 76.7% segs; H&H 10.1/30.9; platelet count 188,000; creatinine 0.30, BUN 4, electrolytes are normal 05/12/2017. The patient was seen today along with his nurse, Dieter, and respiratory therapist, Quinton. Yesterday we tried the patient on a T-tube trial. His PCO2 elevated at 67.6. Placed him back on the ventilator and started Diamox. This morning ABGs on an FiO2 of 40% and mechanical ventilation showed pH of 7.468, PCO2 52.0, PaO2 121.0, bicarb 35.8, and oxygen saturation 98.9%. Will continue with T-tube trials and advance as tolerated. On 05/07/2017 patient with fiberoptic bronchoscopy. Cultures from this around MRSA. Previous urine culture grew E. coli. Will repeat urinalysis today. To cover for MRSA readiness her vancomycin but has pharmacology to dose this. He is presently on Levaquin and Fortaz. We see no reason to continue the Levaquin in the face of vancomycin so this will be discontinued. Today's chest x-ray is improved. He continues to have lower extremity edema. This is been discussed with Dr. Nelson we have coordinated our care. We will adjust his Lasix to 20 mg IV push every 12 hours. He has required IV Aminophyllin secondary to high- pitched peripheral wheezes. His theophylline today is elevated at 23.2. I am unsure the cause of his significant drop from yesterday considering he is on the same dose that he has been for the past several days. Nonetheless, we will stop his IV Aminophyllin and continue to follow daily theophylline levels. He is presently on stage V the weaning protocol. We are advancing this as tolerated. He is on potassium replacement protocol as well. He is on physical therapy protocol too. Medications have been reviewed. Labs been reviewed. 05/15/2017. Patient is alert and oriented. His chest x-ray is better. His ABGs better. His lab is stable. He has been extubated today. Follow-up ABGs are pending. Findings and intentions were discussed with the patient's . Tuan Philip nurse practitioner was present. 05/16/2017. The patient was extubated 05/15/2017. He has done well from a pulmonary standpoint since that time. He is not quite back to his baseline mentality yet. This should improve over time. He is stating he wants to be discharged home, but we have informed him that that is not in his best interest at this time. Bronchoscopy culture from 05/09/2017 grew MRSA. He is on vancomycin and pharmacology is managing this. Vancomycin trough yesterday was elevated at 22.9. He is also on ceftazidime to cover for gram negatives. MRSA screen of the nares is positive, so Bactroban has been started. He is for speech therapy evaluation today. Medications have been reviewed. Labs been reviewed. White count is 9000 with 70.0% segs; H&H 9.2/28.3; platelet count 242,000; creatinine less than 0.20, BUN 10, electrolytes are normal ABGs this morning on an FiO2 of 28% show pH 7.440, PCO2 50.7, PO2 65.4, bicarb 33.7, oxygen saturation 93.9% 05/17/2017. The patient was seen today along with his nurse, Apolonia. Upon her initial evaluation, the patient had significant loose large airway congestion and coarseness. We decided to proceed with fiberoptic bronchoscopy. This was done and he had a significant amount of retained secretions. Please see the bronchoscopy report for more information. We discussed the findings with the patient's . The patient needs more frequent oral suction as well as more frequent checks on his NG residuals. This is discussed with his nurse and respiratory therapist. We spoke with his , we inquired about her plans post discharge and she intends for the patient to go back to the care home. We encouraged her to speak with the ICU/CCU bilingual case manager for any help she might have arranging this. Medications have been reviewed. We made no changes today. Labs been reviewed. White count is 10,000 with 77.7% segs; H&H 10.3/32.1; platelet count 300,000; creatinine 0.20, BUN 9, electrolytes normal Exam (Progress Note) - Constitutional Vitals: Period Temp Pulse Resp BP Sys/Ivey Pulse Ox Last 24 Hr 97.3 F-98.2 F 75-103 14-35 101-164/63-109 91-100 Exam: Chest... See above; improved post bronchoscopy Heart no gallop Abdomen is obese, but nontender and nondistended; bowel sounds are positive 4 Extremities with nothing to suggest acute deep venous thrombophlebitis; bilateral pedal and pretibial edema; chronic venous stasis changes Psychiatric presently oriented to at least person and place Neurologic unchanged Plan: Continue present plan of care. Daily BMP/magnesium. Pharmacology is managing vancomycin. Speech therapy evaluation today. Continue physical therapy/occupational therapy efforts. Follow-up bronchoscopy results when available. See orders. Results - Labs CBC & BMP: 05/17/17 04:59 05/17/17 04:59 Specialty Discharge - Follow Up or Referrals Follow up with: Bala Ramírez MD [Primary Care Provider] - 1 Week (Needs appt with Dr. Wilson office for pt to be seen within 1 week of discharge date.)
[2017-05-17] MEDS: LORazepam 2 MG/1 ML VIAL IV PRN (15:36)
--- NOTE | 2017-05-17 16:59 | Hospitalist Progress Note ---
Assessment and Plan (1) Altered mental status Status: Resolved Assessment and plan: Remains slightly confused, but he is oriented x3 Current Visit: No Qualifiers: Altered mental status type: disorientation Qualified Code(s): R41.0 - Disorientation, unspecified (2) Hypoxia Status: Acute Current Visit: Yes (3) Pleural effusion Status: Acute Assessment and plan: s/p thoracentesis, appeared exudative Current Visit: Yes (4) UTI (urinary tract infection) Status: Acute Assessment and plan: Urine culture growing E.coli On fortaz and vancomycin Current Visit: Yes (5) Lower extremity edema Status: Acute Assessment and plan: Continue lasix Current Visit: No (6) Dysphagia, pharyngoesophageal Status: Acute Assessment and plan: s/p EGD by GI Current Visit: Yes (7) Chronic venous insufficiency Status: Chronic Current Visit: No (8) Respiratory failure Status: Acute Assessment and plan: Pulmonary managing Extubated 05/15/17 Current Visit: Yes Hospitalist: Subjective Interval history: No acute events overnight. Patient resting comfortably. Looking into LTAC placement. Patient still with NGT, has not passed swallow eval yet. Will give him a little time and try again. Appears to have undergone bronch this morning. Exam - Constitutional Vitals: Period Temp Pulse Resp BP Sys/Ivey Pulse Ox Last 24 Hr 97.3 F-99.2 F 75-105 21-35 100-164/63-109 85-100 General appearance: normal weight - Head Head exam: Present: normocephalic, atraumatic - Eye Eye exam: Present: EOMI Pupils: Present: SAMSON - ENT ENT exam: Present: normal exam - Neck Neck exam: Present: normal inspection - Respiratory Respiratory exam: Present: clear to auscultation bilaterally. Absent: rhonchi, wheezes - Cardiovascular Cardiovascular exam: Present: regular rate and rhythm - GI/Abdominal GI/Abdominal exam: Present: normal bowel sounds, soft. Absent: tenderness, rebound - Extremities Exam Extremities exam: Present: normal inspection - Back Exam Back exam: Present: normal inspection - Neurological Exam Neurological exam: Present: alert - Psychiatric Psychiatric exam: Present: normal affect, normal mood - Skin Skin exam: Present: warm, intact Results - Labs CBC & BMP: 05/17/17 04:59 05/17/17 04:59 Quality Measures - Stroke Symptom Onset Unknown: No Specialty Discharge - Follow Up or Referrals Follow up with: Bala Ramírez MD [Primary Care Provider] - 1 Week (Needs appt with Dr. Wilson office for pt to be seen within 1 week of discharge date.)
--- NOTE | 2017-05-17 18:28 | Event Note ---
In hospital therapeutic fiberoptic bronchoscopy. Bilateral bronchoalveolar lavage was sent for cytology, Gram stain, bacterial cultures, fungal stains and culture, AFB stains and culture. Bronchoscopy was done around 9 AM today. This patient been extubated on 2016. It was feared that he had aspirated this morning. He had a good bit of large airway congestion. His ABGs were stable. His chest x-ray was essentially stable. Patient had a tremendous amount of retained secretions in his laryngeal area. He has severe deformity of spinal disease which makes it hard for him to suction. This was suctioned repeatedly he continued to cough up sputum's into this area. The collection apparatus showed material that it was at least stained with his gastric feedings. The vocal cords were normal. There was a tremendous amount of retained secretions throughout his trachea. This was removed. The carolyn was sharp. There was a small amount of sputum and both mainstem bronchi and the bases of both lungs. Bronchoalveolar lavage was done from these areas. The underlying bronchi were collapsible. This included the large and small airways. This is compatible with underlying COPD. The patient was considerably better following bronchoscopy. All these findings were discussed with the patient's . Tuan Philip nurse practitioner was present. Impression. 1. Severe COPD with chronic sputum production 2. Resolving pneumonia 3. Ineffective cough 4. Retained secretions 5. Small amount of aspiration of gastric feedings. Probably exacerbated by chronic cough. Plan. 1. Bronchoscopy specimens were sent for the studies noted above 2. Extra precautions for reflux and aspiration have been instituted. 3. Extra attention to suction of the pharyngeal airway. 4. See
--- NOTE | 2017-05-17 18:37 | Event Note ---
MINESH VALADEZ was called at 1811. Patient had a respiratory arrest. Pulse was never lost. O2 sats had dropped down significantly into the 20s. It was my understanding that patient was extubated 2 days ago. ER personnel arrived and intubated him with the help of a glide scope. We had a color change noted at 1817. Patient's O2 sats came up. Patient seemed to tolerate the procedure well. Dr. Trevizo contacted Dr. Romero for the excessive amount of congestion in his chest. Dr. Ramírez 1 of the bronch team notified and he is returning to the hospital.
--- NOTE | 2017-05-17 18:55 | XRay Report ---
XR chest 1V portable Indication: Endotracheal tube placement Comparison: Chest x-ray 05/17/2017 Technique: Portable AP chest was performed. Findings: Endotracheal tube terminates at the level of the aortic knob. NG tube remains present extending below the left hemidiaphragm. The carolyn is not well visualized. The heart size appears within normal limits. Lung parenchyma demonstrates little change on the left with improved visualization of right hemidiaphragm noted. Bones and soft tissues are stable. Multiple rib deformities on the left are unchanged. Left-sided pleural effusion is suggested. Impression: 1. Endotracheal tube placement as detailed. 2. Improved aeration of the right lung base. 3. Otherwise little change in the chest. There may be minimal worsening of airspace disease in the periphery of the left mid to upper lung. 05/17/2017 6:51 PM PROCEDURE INTERPRETED AT [facility] DEPARTMENT OF RADIOLOGY Final Report Signed by: Dr. Bladimir Barrientos
--- NOTE | 2017-05-17 19:09 | Event Note ---
Emergency in hospital diagnostic and therapeutic fiberoptic bronchoscopy. Bilateral bronchoalveolar lavages were sent for Gram stain, bacterial culture, fungal stains and culture. This is a 66-year-old white male who was extubated on 05/15/2017. Earlier this morning he had had a problems with some retained secretions. He was bronchoscoped and did very well. He was watched closely today suction frequently and is gastric residual was checked often. Patient is alert oriented and was doing very well. He was waving the people who went by his door. He then suddenly stopped breathing and required emergency intubation. I was called to see him and the bronchoscope and notes it was feared that he might have aspirated. The endotracheal tube is in great position. The tube was full of thick tenacious secretions that were a pulmonary origin. The initial secretions had some brownish staining suggestive of gastric feeding etiology. The carolyn was sharp. The left mainstem bronchus was closed off with thick tenacious secretions that extended into the left upper lung and the left lower lung. These were much more extensive than I expected and these were pulmonary origin and they were slightly stained with old feeding material. I think that this all may have been old and not acute. On the right side there were similar less severe is findings in the bronchoalveolar lavage was also done on the right. Multiple segmental bronchi on the right and the left with erythematous thickened and friable when touched. Patient tolerated procedure better and his oxygenation was better following. Findings were discussed with the patient's . Tuan Philip nurse practitioner was present. I told the that I think that the best solution is going to be a trach in this patient. His secretions are too hard to mobilize. Trach will be extremely helpful for period of time and then it should be pullable. All of her questions were answered. She was agreeable to proceeding with this and I will consult ENT Impression. 1. Acute respiratory distress requiring intubation mechanical ventilation secondary to retained secretions. Based on my findings I think gastric materials could have possibly been a minor component of this. Much of what I saw I think was old material. 2. Severe COPD with markedly collapsible large and small airways and collapsible trachea. This impedes the patient's ability to mobilize his secretions. 3. Ankylosing spondylitis with decreased range of motion of the neck compromising patient's ability to clear secretions 4. Gastroesophageal reflux of gastric contents 5. Retained secretions 6. Ineffective cough Plan. 1. Check bronchoscopy specimens 2. Follow-up chest x-ray 3. Mechanical ventilation with mechanical ventilation weaning and physical therapy protocols 4. Consult ENT for elective trach
[2017-05-17 19:55] LABS: Pt O2 Delivery Device Ventilator
[2017-05-17 19:56] LABS: ABG Base Excess 4.4 MMOL/L (-2.5-2.5); ABG HCO3 28.4 MMOL/L (20-26); ABG Oxygen Saturation 98.2 % (95-100); ABG PH 7.348 (7.35-7.45); ABG TCO2 28.7 MMOL/L (23-27)
--- NOTE | 2017-05-17 20:25 | Event Note ---
MINESH VALADEZ was called. The patient was in the ICU without an airway in respiratory distress with bag valve mask ventilation. With no sedation and no paralytic glide scope was used to identify the vocal cords after which a bougie was passed into the endotracheal passage over which an 8.0 Hebrew endotracheal tube was passed with good end-tidal CO2. Chest x-ray revealed good position of endotracheal tube.
[2017-05-17] MEDS: PHENYLEPHRINE DRIP 40 MG/250 ML PREMIX IV SCH (21:09)
[2017-05-17] MEDS: DILTIAZEM INJ 100 MG in SODIUM CHLORIDE 0.9% 100 ML IV SCH (21:11)
[2017-05-17] MEDS: CLORAZEPATE 7.5 MG TABLET PO SCH (22:40)
[2017-05-18] MEDS: ALBUTEROL/IPRATROPIUM 3 ML NEB RESP TX SCH ×4 (01:01→20:13)
[2017-05-18 04:14] LABS: Pt O2 Delivery Device Ventilator
[2017-05-18 04:15] LABS: ABG Base Excess 6.1 MMOL/L (-2.5-2.5); ABG Oxygen Saturation 99.9 % (95-100); ABG PCO2 37.3 MM HG (35-48); ABG PH 7.506 (7.35-7.45); ABG TCO2 26.9 MMOL/L (23-27)
[2017-05-18] MEDS: ENOXAPARIN 40 MG/0.4 ML SYRINGE SUBCUT SCH (05:00)
[2017-05-18] MEDS: ERYTHROMYCIN INJ 250 MG in SODIUM CHLORIDE 0.9% 100 ML IV SCH ×4 (05:00→22:15)
[2017-05-18] MEDS: INSULIN LISPRO 100 UNIT/ML SUBCUT SCH ×4 (06:30→17:17)
[2017-05-18] MEDS: LEVOTHYROXINE 100 MCG TABLET PO SCH (06:30)
[2017-05-18] MEDS: LINACLOTIDE 145 MCG CAPSULE PO SCH (06:31)
[2017-05-18 06:38] LABS: Osmolality,Calculated 292.4 MOS/KG (273-304)
[2017-05-18 06:58] LABS: Phosphorous < 0.1 MG/DL (2.5-4.9); Prealbumin 6.5 MG/DL (20-40)
[2017-05-18] MEDS: PROPOFOL 1,000 MG/100 ML BOTTLE IV SCH ×5 (07:51→22:21)
[2017-05-18 07:52] LABS: Basophils # 0.1 10*3/uL (0.0-0.2); Basophils % 0.4 % (0.0-0.8); Eosinophils % 0.2 % (0.00-10.9); Hematocrit 31.1 VOL% (42.0-52.0); Hemoglobin 10.3 GM/DL (14.0-18.0); Immature Granulocytes % 0.9 %; Lymphocytes # 0.8 10*3/uL (1.4-4.0); Lymphocytes % 7.2 % (21.2-54.2); Mean Corpuscular HGB Conc 33.1 GM/DL (32-36); Mean Corpuscular Hemoglobin 33 PG (27-34); Mean Corpuscular Volume 99.4 FL (87-102); Mean Platelet Volume 11.5 FL (9.6-12.0); Monocytes # 1.1 10*3/uL (0.11-0.8); Monocytes % 9.7 % (1.7-12.7); Neutrophils # 9.4 10*3/uL (1.4-7.4); Neutrophils % 81.6 % (38.7-73.9); Platelet Count 305 T/CUMM (130-400); Red Blood Count 3.13 MC/CUMM (3.8-5.5); Red Cell Distribution Width 13.2 % (9.3-17.3); White Blood Count 11.5 T/CUMM (4-12)
--- NOTE | 2017-05-18 08:00 | XRay Report ---
Portable chest Date: 05/18/2017 Clinical history: Ventilator, respiratory failure Comparison: 05/17/2017 Technique: Portable AP sitting chest Findings: Stable cardiomegaly and supportive devices. Left subclavian atrioventricular permanent pacemaker. Progressive parenchymal findings especially in the lower lung zones with larger pleural effusions. Stable mediastinum and osseous structures. Prior thoracic kyphoplasty. Impression: Enlarging moderate right and yeect-wa-mndjliut left pleural effusions with progressive atelectasis/infiltration/edema. Stable supportive devices. Left subclavian atrioventricular permanent pacemaker. PROCEDURE INTERPRETED AT [facility] DEPARTMENT OF RADIOLOGY Final Report Signed by: Dr. Aniya Milligan
[2017-05-18] MEDS: FOLIC ACID 1 MG TABLET PO SCH (08:08)
[2017-05-18] MEDS: PANTOPRAZOLE 40 MG TABLET PO SCH (08:08)
[2017-05-18] MEDS: ASCORBIC ACID 500 MG TABLET PO SCH (08:08)
[2017-05-18] MEDS: IMIPRAMINE 25 MG TABLET PO SCH (08:08)
[2017-05-18] MEDS: BISOPROLOL 5 MG TABLET PO SCH (08:08)
[2017-05-18] MEDS: SPIRONOLACTONE 25 MG TABLET PO SCH ×2 (08:08→21:48)
[2017-05-18] MEDS: THIAMINE 100 MG TABLET PO SCH (08:08)
[2017-05-18] MEDS: MULTIVITAMIN (CENTRUM) TABLET PO SCH (08:08)
[2017-05-18] MEDS: POTASSIUM CHLORIDE 20 MEQ PACK PO SCH ×2 (08:08→08:24)
[2017-05-18] MEDS: POLYETHYLENE GLYCOL POWDER 17 GM PACK PO SCH (08:08)
[2017-05-18] MEDS: miSOPROStol 200 MCG TABLET PO SCH (08:08)
[2017-05-18] MEDS: FUROSEMIDE 20 MG/2 ML VIAL IV SCH (08:09)
[2017-05-18] MEDS: MUPIROCIN 2% OINT 22 GM TUBE TOP SCH ×2 (08:12→20:00)
[2017-05-18] MEDS: LIDOCAINE 5% PATCH TRANSDERM SCH (08:16)
[2017-05-18] MEDS: fentaNYL 12 MCG/HR PATCH TRANSDERM SCH (09:33)
--- NOTE | 2017-05-18 10:52 | Pulmonology Progress Note ---
Pulmonary - PN: Subj Interval history: Mr. Fischer is a 66-year-old white male who we saw in initial pulmonary consultation on 05/04/2017. At that time, our impressions were: #1: Acute altered mental status most likely secondary to #2 but consider other causes #2: Acute urinary tract infection #3: Ankylosing spondylitis with probable spinal stenosis. Anatomy and pain limited mobility. #4: Peripheral sensory neuropathy. His symptoms have gradually worsened over time. #5: Chronic venous stasis of the lower extremities. #6: Vitamin B deficiency. #7: Past history of tobacco abuse #8: COPD/asthma #9: Past history of high blood pressure #10: Hypothyroidism #11: Bilateral pleural effusions of unknown etiology #12: Dual-chamber cardiac pacemaker #13: History of marijuana use #14: History of compression fractures with chronic pain. Now under the care of Dr. Patel. #15: See past history 05/05/2017. Patient was seen today along with his . The patient is awake, alert, and oriented this morning. His theophylline was discontinued per the 's request yesterday. Of note, his theophylline level was 7.9. He has been seen in pain management consultation with Dr. Patel. His note has been reviewed. We appreciate his assistance. He will be out of town for the next few days, but upon his return we will begin tapering the patient's pain medications as per his note. Patient's lower extremities continue to be edematous. We will give Mr. Keith a one-time dose of IV Lasix. We will start Zaroxolyn 5 mg p.o. daily and KCl 20 mEq daily. Daily BMP/magnesium has been ordered. The patient's echocardiogram this admission as read by Dr. Vega showed an estimated EF of 60%, approximately 1+ mitral and aortic regurgitation , 1-2+ tricuspid regurgitation with a right ventricular systolic pressure of 60 mmHg plus the right atrial pressure suggesting severe pulmonary hypertension. This is a significant change from the echocardiogram done 04/12/[address] Nova which showed an EF estimated at 60%, grade 1 diastolic dysfunction, normal to mildly elevated filling pressures, mild aortic valve regurgitation, moderate ventricular hypertrophy with no demonstrable increase in right-sided pressure, and tricuspid regurgitation velocity suggesting a right ventricular systolic pressure of 23 mmHg plus the right atrial pressure. On chest x-ray today, the pleural effusion is improved. This patient has great difficulty laying flat given his ankylosing spondylitis, so we will begin diuresing him with his Zaroxolyn and see if his pleural effusion will resolve rather than proceed with CT PE protocol at this time. We will repeat a chest x-ray on Monday. Doppler venograms showed no evidence of dizziness thrombophlebitis. Abdominal ultrasound showed no ascites. Medications have been reviewed. Labs have been reviewed. White count is 5900 with a normal differential; H&H 10.7/33.6; platelet count 172,000; creatinine 0.40, BUN 8, electrolytes are normal; magnesium 2.5 Microbiology has been reviewed. Urine culture has grown E. coli. He is on Fortaz and Levaquin. Urine drug screen was positive for benzodiazepines and cannabinoids 05/08/2017 during the weekend the patient deteriorated. He developed a severe acidosis and a markedly elevated PCO2 and required movement to CCU along with intubation mechanical ventilation. He is still on the ventilator.His chest x- ray shows bibasilar infiltrates and some faint infiltrates in the right upper lung. Still has a small right pleural effusion. This is unexpected and I have to wonder about aspiration. We will plan to evaluate with fiberoptic bronchoscopy in the morning. His only positive cultures E. coli from his urine. ABGs have been ordered but are pending. Potassium is low at 3.0 and the patient will be placed on protocol. Natruretic peptide is 92. H&H is 10.8/ 31.9. White count is 8674.4 segs 7 lymphs and 16.1 monocytes. EKG shows no acute changes. At this point I am not entirely clear why the patient deteriorated so rapidly. 05/09/2017. Today's chest x-ray is better. Patient has cardiomegaly. He has bilateral alveolar and interstitial changes and he has a small to moderate size right pleural effusion. He is alert and oriented and can cooperate. Earlier today I evaluated patient with fiberoptic bronchoscopy. See the report. He had some mild erosive slightly friable bronchitis in the right lower lung that had the appearance of a recent pneumonia. This may be the etiology of his pleural effusion. The patient had only a small amount of sputum and both bronchial trees. I did not see any food or gastric content. Today the patient will go to stage II of his weaning protocol. The only positive culture is E. coli from the urine. ABGs on mechanical ventilation FiO2 40% shows a pH of 7.52 , PCO2 41.4, PO2 of 84.1 and a bicarb of 32.8. H&H is gradually dropping to 10.3/29.3. White count is 8276 segs and platelets are 141,000. Potassium is low at 3.2 and is being replaced. Theophylline level is 7.4. Last night the patient had atrial fib that required Cardizem and amiodarone. The patient's most recent echocardiogram (05/04/2017) showed pulmonary artery pressure above 70 whereas a month or so ago his pulmonary artery pressures were normal. We will repeat this today. Cardiology is seeing the patient in the past and placed cardiac pacemaker. Will last for follow-up evaluation. Also we have asked that his magnesium be checked. 05/10/2017. Patient's on stage III of the weaning protocol. Because of his anatomy chest x-ray is difficult to interpret. He has old pleural scarring on the right where he has had a previous pleural stripping. He has persistent pleural effusion on the right. Etiology of this is undetermined. His echocardiogram does not support congestive heart failure. He has no ascites on ultrasound of the abdomen. I discussed the possibility of thoracentesis by interventional radiologist with the and she is agreeable. We should send pleural fluid specimens for cytology, H&H, white blood cell count with differential, total protein, SGOT, LDH, Gram stain with bacterial culture, AFB stains and cultures. 05/15/2017. Patient is alert and oriented. His chest x-ray is better. His ABGs better. His lab is stable. He has been extubated today. Follow-up ABGs are pending. Findings and intentions were discussed with the patient's . Tuan Philip nurse practitioner was present 05/18/2017. Patient was bronchoscoped yesterday morning did well and suddenly developed a respiratory arrest followed by a short period of asystole on the night of 05/17/2017. He was intubated and I did an emergency bronchoscopy. His problem is retention of secretions were much more than I expected. This is slightly complicated by gastroesophageal reflux. Patient is going to need a trach. His is agreeable. ENT consultation is pending. Chest x-ray is stable today and ABGs are stable. He has has woken up and is been wide awake. Exam (Progress Note) - Constitutional Vitals: Period Temp Pulse Resp BP Sys/Ivey Pulse Ox Last 24 Hr 5 F-98.0 F 83-105 118-166/66-83 88-99 Exam: Neurologic. . Alert. Oriented. He cooperates when he is awake Chest. Loose large airway congestion Heart no gallop Abdomen is obese, but nontender and nondistended; bowel sounds are positive 4 Extremities with nothing to suggest acute deep venous thrombophlebitis; bilateral pedal and pretibial edema; chronic venous stasis changes Neck. Also normal curvature secondary to ankylosing spondylitis. Lymphatics. No submandibular cervical supraclavicular or epitrochlear adenopathy. The remainder the exam is noncontributory Plan. 05/08/2007 1. Fiberoptic bronchoscopy in the morning 2. Mechanical ventilation weaning protocol and physical therapy protocol 3. See today's note, above 05/09/2017. 1. Fiberoptic bronchoscopy showed no evidence of aspiration see report 2. Stage II to weaning protocol 3. Repeat echocardiogram with attention to recent onset of pulmonary hypertension 4. Replace potassium 5. Check magnesium 6. Daily chest x-ray ABGs and lab 7. Watch slow decline of H&H 8. Check bronchoscopy specimens 9. Cardiology consult 05/10/2017. 1. See today's note, above 2. Appreciate cardiology consultation 3. Fiberoptic bronchoscopy in the morning 4. Consult interventional radiologist for thoracentesis. Because of the patient's ankylosing spondylitis and anatomy of this will be difficult. See today's note above concerning studies when needed. This was discussed with the and she is agreeable 05/15/2017. 1. See today's note, above 2. Extubated 05/15/2017. Follow-up ABGs pending 3. Follow chest x-ray, ABGs and lab. 05/18/2017. 1. See my note above. 2. Intubated on the night of 05/17/2017. 3. ENT consultation for tracheostomy. Exam (Progress Note) - Constitutional Vitals: Period Temp Pulse Resp BP Sys/Ivey Pulse Ox Last 24 Hr 97.7 F-99.6 F 80-109 10- 74-164/48-93 10-100 Results - Labs CBC & BMP: 05/18/17 07:39 05/18/17 05:29 Specialty Discharge - Follow Up or Referrals Follow up with: Bala Ramírez MD [Primary Care Provider] - 1 Week (Needs appt with Dr. Wilson office for pt to be seen within 1 week of discharge date.)
--- NOTE | 2017-05-18 11:41 | Consultation ---
Assessment and Plan - Time spent with patient Time spent with patient: Less than 30 minutes (1) Ventilator dependent Status: Acute Assessment and plan: I recommend tracheostomy tube placement risks and benefits were discussed and the desires to proceed with surgery will be scheduled for tomorrow. Current Visit: Yes (2) Altered mental status Status: Resolved Current Visit: No Qualifiers: Altered mental status type: disorientation Qualified Code(s): R41.0 - Disorientation, unspecified (3) Dyspnea Status: Acute Current Visit: Yes (4) Hypoxia Status: Acute Current Visit: Yes (5) Respiratory failure Status: Chronic Current Visit: Yes History of Present Illness - Data of Consult Patient: new to practice Consult date: 05/18/17 Requesting Physician: Bala Ramírez - Consult Narrative Reason for consult: Ventilator dependent respiratory failure History of present illness: Mr. Fischer is a 66 year old male with multiple medical comorbidities who is currently intubated on the ventilator and has failed multiple weaning attempts and ENT is consulted for tracheostomy tube placement. He has been intubated for >10 days with the aforementioned multiple failed attempts and requiring still pressurized ventilation and intubation or tracheostomy tube. CC: Eusebio Hamilton MD - Home Medications and Allergies Home Medications: Home Medications Medication Instructions Recorded Confirmed Type Imipramine HCl 25 mg PO DAILY 02/20/17 05/03/17 History Levothyroxine Tab [Synthroid Tab] 100 mcg PO DAILY 02/20/17 05/03/17 History Theophylline ER Tab 300 mg PO Q12H 02/20/17 05/03/17 History Bisoprolol [Zebeta] 5 mg PO DAILY tablet 03/02/17 05/03/17 Rx Folic Acid Tab 1 mg PO DAILY tablet 03/02/17 05/03/17 Rx Lidocaine 5% Patch [Lidoderm 5% 1 patch TRANSDERM DAILY patch 03/02/17 Rx Patch] Multivitamin (Centrum) [Centrum 1 tablet PO DAILY tablet 03/02/17 05/03/17 Rx Tab] Thiamine Tab [Vitamin B1 Tab] 100 mg PO DAILY tablet 03/02/17 05/03/17 Rx miSOPROStol [Cytotec] 200 mcg PO DAILY tablet 03/02/17 05/03/17 Rx Albuterol Sulfate [Albuterol Neb] 2.5 mg RESP TX TID 04/11/17 05/03/17 History Ascorbic Acid Tab [Vitamin C Tab] 500 mg PO DAILY 04/11/17 05/03/17 History Bisacodyl Tab [Dulcolax Tab] 5 mg PO DAILY PRN 04/11/17 05/03/17 History Lactulose Liquid [Chronulac] 30 ml PO BID 04/11/17 05/03/17 History HYDROcodone/ACETAMIN 5-325 [[place] 1 tablet PO Q8H PRN #90 tablet 04/19/17 Rx 5-325] Skin Healing Oint (Aquaphor) 1 applic TOP PRN PRN applic 04/19/17 05/03/17 Rx [Aquaphor] Clorazepate [Tranxene] 3.75 mg PO BEDTIME 05/04/17 05/04/17 History fentaNYL 12 MCG/HR PATCH 1 patch TRANSDERM Q3DAY 05/04/17 05/04/17 History [Duragesic 12 Patch] Allergies/Adverse Reactions: Allergies Allergy/AdvReac Type Severity Reaction Status Date / Time codeine Allergy Unknown UNRESPONSIV Verified 04/12/17 00:48 E acetaminophen [From Percocet] Allergy Verified 04/12/17 00:48 escitalopram [From Lexapro] Allergy Verified 04/12/17 00:48 gabapentin [From Neurontin] Allergy Verified 04/12/17 00:48 Hydromorphone [From Dilaudid] Allergy Verified 04/12/17 00:48 Oxycodone [From Percocet] Allergy Verified 04/12/17 00:48 12 point system: reviewed and no additional remarkable complaints except as stated Medical,Surgical,& Family Hx - Medical History Cardio: History of: CAD, Hypertension, Pacemaker (Dual-chamber placed in February [address] Clemens) No history of: AL, PVD Psychological: History of: Anxiety Disorders, Depression Neurology: History of: Vertigo HEENT: History of: Eye Problem (WEARS GLASSES, NEAR SIGHTED, CATARACT LEFT EYE) Endocrine: History of: Thyroid Disorder No history of: Diabetes Mellitus (IDDM), Diabetes Mellitus (NIDDM), Dyslipidemia Respiratory: History of: Bronchitis, COPD, Intubation, Pulmonary Hypertension ( Likely secondary to COPD), Pneumonia Renal: No history of: Renal Problems Genitourinary: History of: Prostate Problems (PROSTATE CA) Gastrointestinal: History of: Gastrointestinal Bleed, Hemorrhoids Musculoskeletal: History of: Back/Neck Problems, Degenerative Disk Disease, Herniated Disk, Musculoskeletal Problems (Ankylosing spondylitis) Hematology: No history of: Anemia Other: History of: Cancer (prostate ca), Miscellaneous Medical Problems ( ankylosing spondylitis) - Surgical History Cardiac Surgeries: Sugical HX of: Cardiac Catheterization Patient Denies: Femoral-Popliteal Bypass Graft, Cardiac Surgery, Carotid Endarterectomy, Internal Defibrillator, Vascular Access Devices Thoracic Surgeries: Patient denies;: Organ Transplant Neurologic Surgeries: Patient denies: Neurologic Surgery HEENT Surgeries: Surgical HX of: Tonsilectomy & Adenoidectomy Patient denies: Carotid Endarterectomy Abdominal Surgeries: Patient denies: Abdominal Surgery, Splenectomy Reproductive Surgeries: Surgical HX of;: Genitourinary Surgery, Prostate Surgery (PROSTATECTOMY) Orthopedic Surgeries: Surgical HX of;: Orthopedic Surgery (RIGHT ANKLE FRACTURE) - Family History Family History: Reports;: Family Cancer (FATHER (TESTICULAR CA)), Family Diabetes (FATHER), Family Heart Disease (MOTHER), Family Hypertension - Social History Smoking Status: Former smoker Frequency of Alcohol Use: None Type of Drug Use: None Exam - Constitutional Vitals: Period Temp Pulse Resp BP Sys/Ivey Pulse Ox Last 24 Hr 97.7 F-99.6 F 80-110 10-30 74-164/48-93 10-100 General appearance: normal weight, other (Currently intubated and sedated) - Head Head exam: Present: normal inspection, normocephalic - ENT ENT exam: Present: normal exam, normal external ear exam, normal oropharynx, other (Obscured exam secondary to endotracheal intubation but no gross masses or lesions.) - Neck Neck exam: Present: normal inspection (Grossly midline trachea) - Respiratory Respiratory exam: Present: other - GI/Abdominal GI/Abdominal exam: Present: soft - Extremities Exam Extremities exam: Present: normal inspection, normal capillary refill - Neurological Exam Neurological exam: Present: other (Unable to evaluate because the patient is intubated) - Psychiatric Psychiatric exam: Present: other (Unable to evaluate because the patient is intubated and sedated) - Skin Skin exam: Present: normal color, warm Results - Labs CBC & BMP: 05/18/17 07:39 05/18/17 05:29 Lab Results: I have reviewed the past 24 hour labs Quality Measures - Stroke Symptom Onset Unknown: No Specialty Discharge - Follow Up or Referrals Follow up with: Bala Ramírez MD [Primary Care Provider] - 1 Week (Needs appt with Dr. Wilson office for pt to be seen within 1 week of discharge date.)
[2017-05-18] MEDS: FLUCONAZOLE INJ 200 MG in PREMIX 1 EACH IV SCH (11:49)
--- NOTE | 2017-05-18 14:40 | Hospitalist Progress Note ---
Assessment and Plan (1) Altered mental status Status: Resolved Assessment and plan: Patient now on ventilator Current Visit: No Qualifiers: Altered mental status type: disorientation Qualified Code(s): R41.0 - Disorientation, unspecified (2) Hypoxia Status: Acute Current Visit: Yes (3) Pleural effusion Status: Resolved Assessment and plan: s/p thoracentesis, appeared exudative Current Visit: Yes (4) UTI (urinary tract infection) Status: Acute Assessment and plan: Urine culture growing E.coli On fortaz and vancomycin Current Visit: Yes (5) Lower extremity edema Status: Acute Assessment and plan: Continue lasix Current Visit: No (6) Dysphagia, pharyngoesophageal Status: Acute Assessment and plan: s/p EGD by GI Current Visit: Yes (7) Chronic venous insufficiency Status: Chronic Current Visit: No (8) Respiratory failure Status: Acute Assessment and plan: Pulmonary managing Extubated 05/15/17 Re-intubated 05/17 due to respiratory failure secondary to excess secretions Plan is for tracheostomy placement tomorrow by ENT Bronchial washings growing gram positive cocci, on vancomcyin Current Visit: Yes Hospitalist: Subjective Interval history: Yesterday evening went into respiratory arrest, a code blue was called, patient was re-intubated. Dr. Ramírez performed an emergency bronchoscopy due to excess secretions. This morning patient remains intubated. Plan is for tracheostomy placement tomorrow by ENT. Exam - Constitutional Vitals: Period Temp Pulse Resp BP Sys/Ivey Pulse Ox Last 24 Hr 97.7 F-99.6 F 80-110 10-30 74-164/48-93 10-100 General appearance: normal weight - Head Head exam: Present: normocephalic, atraumatic - Eye Eye exam: Present: EOMI Pupils: Present: SAMSON - ENT ENT exam: Present: normal exam - Neck Neck exam: Present: normal inspection - Respiratory Respiratory exam: Present: clear to auscultation bilaterally. Absent: wheezes - Cardiovascular Cardiovascular exam: Present: regular rate and rhythm - GI/Abdominal GI/Abdominal exam: Present: normal bowel sounds, soft. Absent: tenderness, rebound - Back Exam Back exam: Present: normal inspection - Neurological Exam Neurological exam: Present: alert, oriented X3 - Psychiatric Psychiatric exam: Present: normal affect, normal mood - Skin Skin exam: Present: warm, intact Results - Labs CBC & BMP: 05/18/17 07:39 05/18/17 05:29 Quality Measures - Stroke Symptom Onset Unknown: No Specialty Discharge - Follow Up or Referrals Follow up with: Bala Ramírez MD [Primary Care Provider] - 1 Week (Needs appt with Dr. Wilson office for pt to be seen within 1 week of discharge date.)
[2017-05-18] MEDS: VANCOMYCIN INJ 1,750 MG in SODIUM CHLORIDE 0.9% 500 ML IV SCH (15:20)
[2017-05-18] MEDS: CLORAZEPATE 7.5 MG TABLET PO SCH (21:47)
[2017-05-19] MEDS: ALBUTEROL/IPRATROPIUM 3 ML NEB RESP TX SCH ×4 (00:42→21:27)
[2017-05-19] MEDS: PROPOFOL 1,000 MG/100 ML BOTTLE IV SCH ×4 (03:58→19:15)
[2017-05-19] MEDS: ERYTHROMYCIN INJ 250 MG in SODIUM CHLORIDE 0.9% 100 ML IV SCH ×4 (04:01→22:10)
[2017-05-19 04:04] LABS: ABG Oxygen Saturation 98.9 % (95-100); ABG PCO2 32.6 MM HG (35-48); ABG PH 7.519 (7.35-7.45); ABG TCO2 24.1 MMOL/L (23-27)
[2017-05-19] MEDS: ENOXAPARIN 40 MG/0.4 ML SYRINGE SUBCUT SCH (05:00)
[2017-05-19] MEDS: INSULIN LISPRO 100 UNIT/ML SUBCUT SCH ×4 (05:22→19:29)
[2017-05-19 05:23] LABS: Basophils # 0.1 10*3/uL (0.0-0.2); Basophils % 0.8 % (0.0-0.8); Eosinophils # 0.2 10*3/uL (0.0-0.87); Eosinophils % 1.6 % (0.00-10.9); Hematocrit 27.3 VOL% (42.0-52.0); Hemoglobin 8.8 GM/DL (14.0-18.0); Immature Granulocytes % 1.3 %; Immature Granulocytes Absolute 0.12 #; Lymphocytes # 0.9 10*3/uL (1.4-4.0); Lymphocytes % 9.3 % (21.2-54.2); Mean Corpuscular HGB Conc 32.2 GM/DL (32-36); Mean Corpuscular Hemoglobin 32 PG (27-34); Mean Corpuscular Volume 99.6 FL (87-102); Mean Platelet Volume 11.8 FL (9.6-12.0); Monocytes # 0.8 10*3/uL (0.11-0.8); Monocytes % 8.3 % (1.7-12.7); Neutrophils # 7.2 10*3/uL (1.4-7.4); Neutrophils % 78.7 % (38.7-73.9); Platelet Count 281 T/CUMM (130-400); Red Blood Count 2.74 MC/CUMM (3.8-5.5); Red Cell Distribution Width 13.4 % (9.3-17.3); White Blood Count 9.2 T/CUMM (4-12)
[2017-05-19 05:44] LABS: INR 1.1; PT Patient Result 11.3 SECS; Partial Thromboplastin Time 27.7 SECS (0-40)
[2017-05-19] MEDS: DILTIAZEM INJ 100 MG in SODIUM CHLORIDE 0.9% 100 ML IV SCH ×2 (06:00→21:43)
[2017-05-19 06:02] LABS: Calcium 8.3 MG/DL (8.5-10.1); Magnesium 2.2 MG/DL (1.8-2.4); Osmolality,Calculated 284.1 MOS/KG (273-304); Potassium 3.3 MMOL/L (3.5-5.1)
[2017-05-19] MEDS: PHENYLEPHRINE DRIP 40 MG/250 ML PREMIX IV SCH ×2 (06:45→08:05)
[2017-05-19] MEDS: POTASSIUM CHLORIDE RIDER 10 MEQ in PREMIX 1 EACH IV PRN ×4 (07:10→11:15)
[2017-05-19] MEDS: LEVOTHYROXINE 100 MCG TABLET PO SCH (08:23)
[2017-05-19] MEDS ORDERED: LIDOCAINE 1%/EPI INJ 20 ML VIAL ONE (08:29)
--- NOTE | 2017-05-19 08:39 | XRay Report ---
Portable chest Date: 05/19/2017 Clinical history: Pneumonia Comparison: 05/18/2017 Technique: Portable AP sitting chest Findings: The heart remains enlarged with left subclavian atrioventricular permanent pacemaker. Progressive pleural-parenchymal findings especially at the lung bases. Chronic deformity of the left ribs with prior thoracic kyphoplasty. Impression: Enlarging moderate pleural effusions with progressive atelectasis/infiltration. Stable supportive devices and additional findings as above noted. PROCEDURE INTERPRETED AT [facility] DEPARTMENT OF RADIOLOGY Final Report Signed by: Dr. Aniya Milligan
[2017-05-19] MEDS: POTASSIUM CHLORIDE 20 MEQ PACK PO SCH (09:00)
[2017-05-19] MEDS ORDERED: ceFAZolin 1,000 MG VIAL ONE (09:18)
--- NOTE | 2017-05-19 09:50 | Operative Note ---
Date of procedure: 05/19/17 Procedure: PRE-DIAGNOSES: [Dependence on respirator/ventilator], [Ventilator status] [Respiratory failure], [Chronic; with hypoxia] [Severe cervical kyphosis] POST-DIAGNOSES: [Dependence on respirator/ventilator], [Ventilator status] [Respiratory failure], [Chronic; with hypoxia] [Severe cervical kyphosis] PROCEDURES: Tracheostomy Type: [Planned] [Sterile Technique(s): Large Sterile Drape; Gloves; Cap; Gown; Small Drape; Mask/Eye Shield] Prep: [Chlorhexidine] Securing Method: [Suture] [] FINDINGS: [Midline trach in normal anatomical position] [Severe cervical kyphosis] TECHNIQUE: After appropriate informed consent was signed and placed on the chart patient was taken back to the operative theater where timeout was performed to verify the correct patient with correct procedure. Patient was transferred to the operative table where anesthesia performed general anesthesia with endotracheal tube [that was already in place from transfer unit]. Patient was sterilely prepped and draped. The patient's trachea was palpated and a midline planned incision was drawn out and infiltrated with a total of [5] mL of 1% lidocaine with 1:100,000 epinephrine. Bovie cautery on a setting of [20] spray was used to cut and coagulate midline in a vertical direction in the preplanned incision through the subcutaneous fat and dissecting the strap muscles in the midline. The incision was then held open with [employer] retractors and digital palpation was used to confirm the trachea. Thyroid was encountered overlying the second and third tracheal rings so an isthmusectomy was performed with Bovie electrocautery on a setting of 40 spray. A cricoid hook was placed and used to hold the trachea midline while the intersection between the second and third tracheal rings were prepared for incision. A 15 blade scalpel was used to incise the between the second and third tracheal rings. A tracheal dilator was used to dilate the trachea. The patient's endotracheal tube was slowly removed under direct visualization and a #8 cuffed [Bivona ] tracheostomy tube held in place at the 10 cm jones on the Bivona trach with an inner cannula was placed under direct visualization. The tracheostomy tube was sutured in place with 4 quadrant 2-0 nylon sutures in a simple interrupted fashion. A drain sponge was placed around the trach tube. FloSeal was injected into the tracheostomy site to provide any additional hemostasis. The trach was then held in place with a trach tie. An endoscope was used to visualize the trachea through the tracheostomy. This confirmed good placement of the trach with the carolyn approximately 1-2 cm inferior to the end of the trach. The trach did not blind end in to the tracheal sidewall there were no lesions lacerations and no evidence of active hemorrhage. [] All instrumentation was removed and the patient was then transferred back to []. Anesthesia: GETA Surgeon / Physician: Jose Covarrubias Estimated blood loss: minimal Specimens: none sent Condition: stable Disposition: PACU Results - Labs CBC & BMP: 05/19/17 04:56 05/19/17 04:56 Discharge Plan - Discharge Medications No Action Imipramine HCl 25 mg PO DAILY Levothyroxine Tab [Synthroid Tab] 100 mcg PO DAILY Folic Acid Tab 1 mg PO DAILY tablet Lidocaine 5% Patch [Lidoderm 5% Patch] 1 patch TRANSDERM DAILY patch miSOPROStol [Cytotec] 200 mcg PO DAILY tablet Thiamine Tab [Vitamin B1 Tab] 100 mg PO DAILY tablet Bisacodyl Tab [Dulcolax Tab] 5 mg PO DAILY PRN PRN Reason: Constipation Ascorbic Acid Tab [Vitamin C Tab] 500 mg PO DAILY Lactulose Liquid [Chronulac] 30 ml PO BID HYDROcodone/ACETAMIN 5-325 [[place] 5-325] 1 tablet PO Q8H PRN #90 tablet PRN Reason: Pain Moderate (4-7) Skin Healing Oint (Aquaphor) [Aquaphor] 1 applic TOP PRN PRN applic PRN Reason: Dry Skin Clorazepate [Tranxene] 3.75 mg PO BEDTIME fentaNYL 12 MCG/HR PATCH [Duragesic 12 Patch] 1 patch TRANSDERM Q3DAY Theophylline ER Tab 300 mg PO Q12H Bisoprolol [Zebeta] 5 mg PO DAILY tablet Multivitamin (Centrum) [Centrum Tab] 1 tablet PO DAILY tablet Albuterol Sulfate [Albuterol Neb] 2.5 mg RESP TX TID - Follow Up or Referral Follow Up: Bala Ramírez MD [Primary Care Provider] - 1 Week (Needs appt with Dr. Wilson office for pt to be seen within 1 week of discharge date.) - Forms/Instructions
--- NOTE | 2017-05-19 10:06 | Anesthesia Post-Op ---
Anesthesia Post OP - Post Ansesthetic Evaluation Patient seen in post op: Yes Resp: other (Back to CCU 125 on vent with trach) CV: within normal limits Mental: within normal limits Temp: within normal limits [id number]: within normal limits Nausea and Vomiting: within normal limits Pain: within normal limits
[2017-05-19] MEDS ORDERED: VECURONIUM 10 MG VIAL IV ONE (10:11)
[2017-05-19] MEDS ORDERED: CISATRACURIUM 10 MG/5 ML VIAL IV ONE (10:11)
[2017-05-19] MEDS ORDERED: MIDAZOLAM 10 MG/2 ML VIAL ONE (10:11)
--- NOTE | 2017-05-19 10:27 | Case Mgmt Physician Query Form ---
LONG STAY PHYSICIAN RECERTIFICATION *This form is to be completed for all Medicare patients before they reach day 20 of their hospitalization. Please complete each section as appropriate.* I certify that hospitalization, and continued hospitalization, for this patient is medically necessary as follows: 1) Reasons of either continued hospitalization of the patient for medical treatment or medically required diagnostic study or special or unusual services for cost outlier cases are as follows: Respiratory failure, patient is intubated 2) Estimated time patient will need to remain in hospital: NA 3) Plan for Post Hospital Care: ( ) Home with Primary Care Follow up ( ) Home with Home Health Follow up ( x) LTACH/ Acute Care Rehab/ SNF/[facility] ( ) Other: If you have any questions, please contact me. Thank you, Toya Parsons RN Case Management P: [phone] F [phone] E: [email or web address]
[2017-05-19] MEDS: FUROSEMIDE 20 MG/2 ML VIAL IV SCH (10:50)
[2017-05-19] MEDS: MULTIVITAMIN (CENTRUM) TABLET PO SCH (10:51)
[2017-05-19] MEDS: miSOPROStol 200 MCG TABLET PO SCH (10:51)
[2017-05-19] MEDS: SPIRONOLACTONE 25 MG TABLET PO SCH ×2 (10:51→21:34)
[2017-05-19] MEDS: BISOPROLOL 5 MG TABLET PO SCH (10:51)
[2017-05-19] MEDS: PANTOPRAZOLE 40 MG TABLET PO SCH (10:52)
[2017-05-19] MEDS: ASCORBIC ACID 500 MG TABLET PO SCH (10:52)
[2017-05-19] MEDS: VANCOMYCIN INJ 1,750 MG in SODIUM CHLORIDE 0.9% 500 ML IV SCH (10:52)
[2017-05-19] MEDS: MUPIROCIN 2% OINT 22 GM TUBE TOP SCH ×2 (10:53→21:35)
[2017-05-19] MEDS: THIAMINE 100 MG TABLET PO SCH (10:53)
[2017-05-19] MEDS: POLYETHYLENE GLYCOL POWDER 17 GM PACK PO SCH (10:53)
[2017-05-19] MEDS: LINACLOTIDE 145 MCG CAPSULE PO SCH (10:53)
[2017-05-19] MEDS: FOLIC ACID 1 MG TABLET PO SCH (10:53)
[2017-05-19] MEDS: IMIPRAMINE 25 MG TABLET PO SCH (10:53)
[2017-05-19] MEDS: FLUCONAZOLE INJ 200 MG in PREMIX 1 EACH IV SCH (12:05)
[2017-05-19] MEDS: LIDOCAINE 5% PATCH TRANSDERM SCH (12:07)
--- NOTE | 2017-05-19 12:16 | Pathology Report from [facility] ---
[facility] ACCESSION # : [id number] PATIENT NAME : Royer Fischer ORDERING DR : JANIE NASH MD CLINICAL HX: COPD, Asthma POST-OP DX: Same SPECIMEN INFO: Washing,Bronchial,TATIANA - 20 mls light hernandez, cloudy with brown and white paticles. CLASS: II CLASS COMMENTS: Reactive pulmonary cells, inflammationCELL BLOCK: Same CLASS LEGEND: CLASS 0 Material inadequate for diagnosis because of (see comment) CLASS I Absence of atypical or abnormal cells CLASS II Atypical Cytology but no evidence of malignancy CLASS III Cytology suggestive of but not conclusive for malignancy CLASS IV Cytology strongly suggestive of malignancy CLASS V Cytology conclusive for malignancy COLLECTED DATE: 05/17/2017 [facility] REPORT DATE: 05/19/2017 ELECTRONICALLY SIGNED BY: Gela Mcqueen M.D. 05/19/2017 - 9:21:47 MTDD
--- NOTE | 2017-05-19 12:18 | Pulmonology Progress Note ---
Pulmonary - PN: Subj Interval history: Tuan Philip, AGPCNP-, acting as scribe for Dr. Bala Ramírez Mr. Fischer is a 66-year-old white male who we saw in initial pulmonary consultation on 05/04/2017. At that time, our impressions were: #1: Acute altered mental status most likely secondary to #2 but consider other causes #2: Acute urinary tract infection #3: Ankylosing spondylitis with probable spinal stenosis. Anatomy and pain limited mobility. #4: Peripheral sensory neuropathy. His symptoms have gradually worsened over time. #5: Chronic venous stasis of the lower extremities. #6: Vitamin B deficiency. #7: Past history of tobacco abuse #8: COPD/asthma #9: Past history of high blood pressure #10: Hypothyroidism #11: Bilateral pleural effusions of unknown etiology #12: Dual-chamber cardiac pacemaker #13: History of marijuana use #14: History of compression fractures with chronic pain. Now under the care of Dr. Patel. #15: See past history 05/05/2017. Patient was seen today along with his . The patient is awake, alert, and oriented this morning. His theophylline was discontinued per the 's request yesterday. Of note, his theophylline level was 7.9. He has been seen in pain management consultation with Dr. Patel. His note has been reviewed. We appreciate his assistance. He will be out of town for the next few days, but upon his return we will begin tapering the patient's pain medications as per his note. Patient's lower extremities continue to be edematous. We will give Mr. Keith a one-time dose of IV Lasix. We will start Zaroxolyn 5 mg p.o. daily and KCl 20 mEq daily. Daily BMP/magnesium has been ordered. The patient's echocardiogram this admission as read by Dr. Vega showed an estimated EF of 60%, approximately 1+ mitral and aortic regurgitation , 1-2+ tricuspid regurgitation with a right ventricular systolic pressure of 60 mmHg plus the right atrial pressure suggesting severe pulmonary hypertension. This is a significant change from the echocardiogram done 04/12/[address] Nova which showed an EF estimated at 60%, grade 1 diastolic dysfunction, normal to mildly elevated filling pressures, mild aortic valve regurgitation, moderate ventricular hypertrophy with no demonstrable increase in right-sided pressure, and tricuspid regurgitation velocity suggesting a right ventricular systolic pressure of 23 mmHg plus the right atrial pressure. On chest x-ray today, the pleural effusion is improved. This patient has great difficulty laying flat given his ankylosing spondylitis, so we will begin diuresing him with his Zaroxolyn and see if his pleural effusion will resolve rather than proceed with CT PE protocol at this time. We will repeat a chest x-ray on Monday. Doppler venograms showed no evidence of dizziness thrombophlebitis. Abdominal ultrasound showed no ascites. Medications have been reviewed. Labs have been reviewed. White count is 5900 with a normal differential; H&H 10.7/33.6; platelet count 172,000; creatinine 0.40, BUN 8, electrolytes are normal; magnesium 2.5 Microbiology has been reviewed. Urine culture has grown E. coli. He is on Fortaz and Levaquin. Urine drug screen was positive for benzodiazepines and cannabinoids 05/08/2017. During the weekend the patient deteriorated. He developed a severe acidosis and a markedly elevated PCO2 and required movement to CCU along with intubation mechanical ventilation. He is still on the ventilator.His chest x- ray shows bibasilar infiltrates and some faint infiltrates in the right upper lung. Still has a small right pleural effusion. This is unexpected and I have to wonder about aspiration. We will plan to evaluate with fiberoptic bronchoscopy in the morning. His only positive cultures E. coli from his urine. ABGs have been ordered but are pending. Potassium is low at 3.0 and the patient will be placed on protocol. Natruretic peptide is 92. H&H is 10.8/ 31.9. White count is 8674.4 segs 7 lymphs and 16.1 monocytes. EKG shows no acute changes. At this point I am not entirely clear why the patient deteriorated so rapidly. 05/09/2017. Today's chest x-ray is better. Patient has cardiomegaly. He has bilateral alveolar and interstitial changes and he has a small to moderate size right pleural effusion. He is alert and oriented and can cooperate. Earlier today I evaluated patient with fiberoptic bronchoscopy. See the report. He had some mild erosive slightly friable bronchitis in the right lower lung that had the appearance of a recent pneumonia. This may be the etiology of his pleural effusion. The patient had only a small amount of sputum and both bronchial trees. I did not see any food or gastric content. Today the patient will go to stage II of his weaning protocol. The only positive culture is E. coli from the urine. ABGs on mechanical ventilation FiO2 40% shows a pH of 7.52 , PCO2 41.4, PO2 of 84.1 and a bicarb of 32.8. H&H is gradually dropping to 10.3/29.3. White count is 8276 segs and platelets are 141,000. Potassium is low at 3.2 and is being replaced. Theophylline level is 7.4. Last night the patient had atrial fib that required Cardizem and amiodarone. The patient's most recent echocardiogram (05/04/2017) showed pulmonary artery pressure above 70 whereas a month or so ago his pulmonary artery pressures were normal. We will repeat this today. Cardiology is seeing the patient in the past and placed cardiac pacemaker. Will last for follow-up evaluation. Also we have asked that his magnesium be checked. 05/10/2017. Patient's on stage III of the weaning protocol. Because of his anatomy chest x-ray is difficult to interpret. He has old pleural scarring on the right where he has had a previous pleural stripping. He has persistent pleural effusion on the right. Etiology of this is undetermined. His echocardiogram does not support congestive heart failure. He has no ascites on ultrasound of the abdomen. I discussed the possibility of thoracentesis by interventional radiologist with the and she is agreeable. We should send pleural fluid specimens for cytology, H&H, white blood cell count with differential, total protein, SGOT, LDH, Gram stain with bacterial culture, AFB stains and cultures. 05/11/2017. Patient was seen today along with his nurse. He remains on the ventilator weaning protocol. He is on stage III. He is progressing well. Yesterday the patient underwent thoracentesis by interventional radiology where approximately 1 L fluid was removed. On review of the pleural fluid, this was an exudate. On 05/09/2017 the patient underwent fiberoptic bronchoscopy. Cultures are growing gram-positive cocci. ID is pending. There has been no reportable AFB or fungus. Bronchoscopy lavages were class I. The patient looks strong today and ABGs on an FiO2 of 40% with mechanical ventilation showed PCO2 of 43 with a PO2 of 123.0. We have asked for the patient be placed on a T-tube trial with ABGs to be drawn 1 hour later and call to us. He remains on IV Aminophyllin. Theophylline level today is pending. Lower extremities continue to have edema. We are going to start Lasix 20 mg IV every 12 hours and placed him on a potassium replacement protocol. We discussed all these things with the patient's today to her understanding and she is in agreement with our plan of care. Medications have been reviewed. Labs have been reviewed. White count is 8400 with 76.7% segs; H&H 10.1/30.9; platelet count 188,000; creatinine 0.30, BUN 4, electrolytes are normal 05/12/2017. The patient was seen today along with his nurse, Dieter, and respiratory therapist, Quinton. Yesterday we tried the patient on a T-tube trial. His PCO2 elevated at 67.6. Placed him back on the ventilator and started Diamox. This morning ABGs on an FiO2 of 40% and mechanical ventilation showed pH of 7.468, PCO2 52.0, PaO2 121.0, bicarb 35.8, and oxygen saturation 98.9%. Will continue with T-tube trials and advance as tolerated. On 05/07/2017 patient with fiberoptic bronchoscopy. Cultures from this around MRSA. Previous urine culture grew E. coli. Will repeat urinalysis today. To cover for MRSA readiness her vancomycin but has pharmacology to dose this. He is presently on Levaquin and Fortaz. We see no reason to continue the Levaquin in the face of vancomycin so this will be discontinued. Today's chest x-ray is improved. He continues to have lower extremity edema. This is been discussed with Dr. Nelson we have coordinated our care. We will adjust his Lasix to 20 mg IV push every 12 hours. He has required IV Aminophyllin secondary to high- pitched peripheral wheezes. His theophylline today is elevated at 23.2. I am unsure the cause of his significant drop from yesterday considering he is on the same dose that he has been for the past several days. Nonetheless, we will stop his IV Aminophyllin and continue to follow daily theophylline levels. He is presently on stage V the weaning protocol. We are advancing this as tolerated. He is on potassium replacement protocol as well. He is on physical therapy protocol too. Medications have been reviewed. Labs been reviewed. 05/15/2017. Patient is alert and oriented. His chest x-ray is better. His ABGs better. His lab is stable. He has been extubated today. Follow-up ABGs are pending. Findings and intentions were discussed with the patient's . Tuan Philip nurse practitioner was present. 05/16/2017. The patient was extubated 05/15/2017. He has done well from a pulmonary standpoint since that time. He is not quite back to his baseline mentality yet. This should improve over time. He is stating he wants to be discharged home, but we have informed him that that is not in his best interest at this time. Bronchoscopy culture from 05/09/2017 grew MRSA. He is on vancomycin and pharmacology is managing this. Vancomycin trough yesterday was elevated at 22.9. He is also on ceftazidime to cover for gram negatives. MRSA screen of the nares is positive, so Bactroban has been started. He is for speech therapy evaluation today. Medications have been reviewed. Labs been reviewed. White count is 9000 with 70.0% segs; H&H 9.2/28.3; platelet count 242,000; creatinine less than 0.20, BUN 10, electrolytes are normal ABGs this morning on an FiO2 of 28% show pH 7.440, PCO2 50.7, PO2 65.4, bicarb 33.7, oxygen saturation 93.9% 05/17/2017. The patient was seen today along with his nurse, Apolonia. Upon her initial evaluation, the patient had significant loose large airway congestion and coarseness. We decided to proceed with fiberoptic bronchoscopy. This was done and he had a significant amount of retained secretions. Please see the bronchoscopy report for more information. We discussed the findings with the patient's . The patient needs more frequent oral suction as well as more frequent checks on his NG residuals. This is discussed with his nurse and respiratory therapist. We spoke with his , we inquired about her plans post discharge and she intends for the patient to go back to the detention. We encouraged her to speak with the ICU/CCU disease case manager for any help she might have arranging this. Medications have been reviewed. We made no changes today. Labs been reviewed. White count is 10,000 with 77.7% segs; H&H 10.3/32.1; platelet count 300,000; creatinine 0.20, BUN 9, electrolytes normal 05/18/2017. Patient was bronchoscoped yesterday morning did well and suddenly developed a respiratory arrest followed by a short period of asystole on the night of 05/17/2017. He was intubated and I did an emergency bronchoscopy. His problem is retention of secretions were much more than I expected. This is slightly complicated by gastroesophageal reflux. Patient is going to need a trach. His is agreeable. ENT consultation is pending. Chest x-ray is stable today and ABGs are stable. He has has woken up and has been wide awake. 05/19/2017. Earlier today the patient underwent fiberoptic bronchoscopy. This showed retained secretions, atelectasis, ineffective cough, erosive probable bronchitis, pulmonary infection, and COPD with collapsible airways. Please see the bronchoscopy report for more information. He is for trach today by Dr. Covarrubias. He remains intubated and on mechanical ventilation. We are advancing this as tolerated. Bronchoscopy culture from 05/17/2017 has grown MRSA again. He is on appropriate antibiotics for this. He is on physical therapy protocol. He is on vancomycin which is being managed by pharmacology. Medications have been reviewed. We made no changes today. Labs been reviewed. White count is 9200 with 78.7% segs; H&H 8.8/27.3; platelet count 291,000; INR 1.1; creatinine 0.30, BUN 18, sodium 142, potassium 3.3, magnesium 2.2 ABGs today on mechanical ventilation and an unlisted FiO2 showed pH 7.5.9, PCO2 32.6, PO2 132.0, bicarb 28.0, and oxygen saturation 98.9% Exam (Progress Note) - Constitutional Vitals: Period Temp Pulse Resp BP Sys/Ivey Pulse Ox Last 24 Hr 97.9 F-98.5 F 60-108 16-20 48-155/37-84 97-100 Exam: Chest... See above; improved post bronchoscopy Heart no gallop Abdomen is obese, but nontender and nondistended; bowel sounds are positive 4 Extremities with nothing to suggest acute deep venous thrombophlebitis; bilateral pedal and pretibial edema; chronic venous stasis changes Psychiatric somnolent secondary to sedation, but arousable Neurologic unchanged Plan: Continue present plan of care. Daily BMP/magnesium. Pharmacology is managing vancomycin. Continue physical therapy/occupational therapy efforts. Follow-up bronchoscopy results when available. Continue vent weaning protocol. Trach today as per Dr. Covarrubias. See orders. Results - Labs CBC & BMP: 05/19/17 04:56 05/19/17 04:56 Specialty Discharge - Follow Up or Referrals Follow up with: Bala Ramírez MD [Primary Care Provider] - 1 Week (Needs appt with Dr. Wilson office for pt to be seen within 1 week of discharge date.)
--- NOTE | 2017-05-19 13:56 | Hospitalist Progress Note ---
Assessment and Plan (1) Altered mental status Status: Resolved Assessment and plan: Patient now on ventilator Current Visit: No Qualifiers: Altered mental status type: disorientation Qualified Code(s): R41.0 - Disorientation, unspecified (2) Hypoxia Status: Acute Current Visit: Yes (3) Pleural effusion Status: Resolved Assessment and plan: s/p thoracentesis, appeared exudative Current Visit: Yes (4) UTI (urinary tract infection) Status: Acute Assessment and plan: Urine culture growing E.coli On fortaz and vancomycin Current Visit: Yes (5) Lower extremity edema Status: Acute Assessment and plan: Continue lasix Current Visit: No (6) Dysphagia, pharyngoesophageal Status: Acute Assessment and plan: s/p EGD by GI Current Visit: Yes (7) Chronic venous insufficiency Status: Chronic Current Visit: No (8) Respiratory failure Status: Acute Assessment and plan: Pulmonary managing Extubated 05/15/17 Re-intubated 05/17 due to respiratory failure secondary to excess secretions Plan is for tracheostomy placement tomorrow by ENT Bronchial washings growing gram positive cocci, on vancomcyin Current Visit: Yes Hospitalist: Subjective Interval history: No acute events overnight. Patient is awake and alert on the vent, following commands. Trach today. He has been accepted to [facility]. Exam - Constitutional Vitals: Period Temp Pulse Resp BP Sys/Ivey Pulse Ox Last 24 Hr 97.9 F-98.5 F 60-108 16-20 48-155/37-93 97-100 General appearance: normal weight, other (intubated) - Head Head exam: Present: normocephalic, atraumatic - Eye Eye exam: Present: EOMI Pupils: Present: SAMSON - ENT ENT exam: Present: normal exam - Neck Neck exam: Present: normal inspection - Respiratory Respiratory exam: Present: clear to auscultation bilaterally - Cardiovascular Cardiovascular exam: Present: regular rate and rhythm - GI/Abdominal GI/Abdominal exam: Present: normal bowel sounds, soft. Absent: tenderness, rebound - Extremities Exam Extremities exam: Present: normal inspection - Back Exam Back exam: Present: normal inspection - Neurological Exam Neurological exam: Present: alert, oriented X3 - Psychiatric Psychiatric exam: Present: normal affect, normal mood - Skin Skin exam: Present: warm, intact Results - Labs CBC & BMP: 05/19/17 04:56 05/19/17 04:56 Quality Measures - Stroke Symptom Onset Unknown: No Specialty Discharge - Follow Up or Referrals Follow up with: Bala Ramírez MD [Primary Care Provider] - 1 Week (Needs appt with Dr. Wilson office for pt to be seen within 1 week of discharge date.)
--- NOTE | 2017-05-19 14:53 | Event Note ---
In hospital therapeutic and fiberoptic bronchoscopy. Bilateral bronchoalveolar lavage is sent for Gram stain, bacterial culture, fungal stains and culture. This 66-year-old white male is on mechanical ventilation. He has retained secretions and his cough is ineffective. He has left lower lung atelectasis. He has had recurrent pulmonary infections. For these reasons he is evaluated with fiberoptic bronchoscopy. Endotracheal tube is in good position. Distal trachea is slightly erythematous. Sonam sharp. The right mainstem bronchus was full of thick tenacious secretions these extended into the right middle lung and right upper lung and right lower lung. These are most prominent in the right lower lung. These areas were lavaged until clear. Patient has underlying collapsible large and small airways compatible with COPD. There were areas of erythema and friability in the right lower lung. I did not see any evidence of endobronchial cancer. The left mainstem bronchus contained a good bit of secretions which extended into the left upper lung and left lower lung. The left lower lung was evaluated with bronchoalveolar lavage. The underlying airways were collapsible compatible COPD there were scattered areas of erythema. No endobronchial lesions to suggest cancer. The patient tolerated procedure well. There were no complications. Impression. 1. Mechanical ventilation. Intubation. 2. Retained secretions 3. Atelectasis 4. Ineffective cough 5. COPD with collapsible airways 6. Erosive friable bronchitis 7. Pulmonary infection Plan. 1. Patient will need a trach. 2. Check bronchoscopy specimens 3. Follow-up chest x-ray.
[2017-05-19] MEDS: CLORAZEPATE 7.5 MG TABLET PO SCH (21:35)
[2017-05-20] MEDS: PROPOFOL 1,000 MG/100 ML BOTTLE IV SCH ×8 (01:02→20:26)
[2017-05-20] MEDS: INSULIN LISPRO 100 UNIT/ML SUBCUT SCH ×4 (01:02→18:17)
[2017-05-20] MEDS: ALBUTEROL/IPRATROPIUM 3 ML NEB RESP TX SCH ×4 (01:45→19:05)
[2017-05-20] MEDS: ERYTHROMYCIN INJ 250 MG in SODIUM CHLORIDE 0.9% 100 ML IV SCH ×4 (03:16→20:26)
[2017-05-20 03:31] LABS: ABG Base Excess 1.7 MMOL/L (-2.5-2.5); ABG HCO3 28.6 MMOL/L (20-26); ABG Oxygen Saturation 80.1 % (95-100); ABG PCO2 57.7 MM HG (35-48); ABG PH 7.313 (7.35-7.45); ABG PO2 45.3 MM HG (80-95); ABG TCO2 30.4 MMOL/L (23-27); Allen Test Positive; Pt O2 Delivery Device Ventilator
[2017-05-20] MEDS: VANCOMYCIN INJ 1,750 MG in SODIUM CHLORIDE 0.9% 500 ML IV SCH ×3 (04:21→21:38)
[2017-05-20] MEDS: ENOXAPARIN 40 MG/0.4 ML SYRINGE SUBCUT SCH (04:59)
[2017-05-20 05:13] LABS: Basophils # 0.1 10*3/uL (0.0-0.2); Eosinophils # 0.3 10*3/uL (0.0-0.87); Hematocrit 27.3 VOL% (42.0-52.0); Hemoglobin 8.7 GM/DL (14.0-18.0); Immature Granulocytes Absolute 0.08 #; Lymphocytes # 0.8 10*3/uL (1.4-4.0); Lymphocytes % 9.9 % (21.2-54.2); Mean Corpuscular HGB Conc 31.9 GM/DL (32-36); Mean Corpuscular Hemoglobin 32 PG (27-34); Mean Corpuscular Volume 100.7 FL (87-102); Mean Platelet Volume 11.6 FL (9.6-12.0); Monocytes # 0.8 10*3/uL (0.11-0.8); Monocytes % 9.3 % (1.7-12.7); Neutrophils # 6.1 10*3/uL (1.4-7.4); Neutrophils % 74.8 % (38.7-73.9); Platelet Count 283 T/CUMM (130-400); Red Blood Count 2.71 MC/CUMM (3.8-5.5); Red Cell Distribution Width 13.5 % (9.3-17.3); White Blood Count 8.2 T/CUMM (4-12)
[2017-05-20 05:37] LABS: Calcium 8.1 MG/DL (8.5-10.1); Magnesium 2.2 MG/DL (1.8-2.4); Potassium 3.5 MMOL/L (3.5-5.1)
[2017-05-20 05:43] LABS: ABG Base Excess 0.6 MMOL/L (-2.5-2.5); ABG HCO3 24.9 MMOL/L (20-26); ABG PCO2 54.2 MM HG (35-48); ABG PH 7.312 (7.35-7.45); ABG TCO2 25.6 MMOL/L (23-27); Allen Test Positive; Pt O2 Delivery Device Ventilator
[2017-05-20] MEDS: PHENYLEPHRINE DRIP 40 MG/250 ML PREMIX IV SCH ×2 (05:44→06:18)
[2017-05-20] MEDS: LEVOTHYROXINE 100 MCG TABLET PO SCH (06:11)
[2017-05-20] MEDS: FUROSEMIDE 20 MG/2 ML VIAL IV SCH (08:03)
[2017-05-20] MEDS: LINACLOTIDE 145 MCG CAPSULE PO SCH (08:04)
[2017-05-20] MEDS: miSOPROStol 200 MCG TABLET PO SCH (08:49)
[2017-05-20] MEDS: POTASSIUM CHLORIDE 20 MEQ PACK PO SCH (08:49)
[2017-05-20] MEDS: BISOPROLOL 5 MG TABLET PO SCH (08:49)
[2017-05-20] MEDS: MUPIROCIN 2% OINT 22 GM TUBE TOP SCH ×2 (08:49→21:37)
[2017-05-20] MEDS: PANTOPRAZOLE 40 MG TABLET PO SCH (08:50)
[2017-05-20] MEDS: MULTIVITAMIN (CENTRUM) TABLET PO SCH (08:50)
[2017-05-20] MEDS: SPIRONOLACTONE 25 MG TABLET PO SCH ×2 (08:50→20:26)
[2017-05-20] MEDS: IMIPRAMINE 25 MG TABLET PO SCH (08:50)
[2017-05-20] MEDS: THIAMINE 100 MG TABLET PO SCH (08:50)
[2017-05-20] MEDS: FOLIC ACID 1 MG TABLET PO SCH (08:51)
[2017-05-20] MEDS: ASCORBIC ACID 500 MG TABLET PO SCH (08:51)
[2017-05-20] MEDS: POLYETHYLENE GLYCOL POWDER 17 GM PACK PO SCH (08:51)
[2017-05-20] MEDS: LIDOCAINE 5% PATCH TRANSDERM SCH ×2 (08:52→08:53)
--- NOTE | 2017-05-20 09:30 | XRay Report ---
Portable chest May 20, 2017 Indication: Pneumonia respiratory failure Comparison images from previous day at 0342 hours Findings: Continued progression of the bilateral pleural parenchymal opacities when compared with the study. Cardiomediastinal contours are stable. Tubes and lines are unchanged. Impression: Increasing pleural effusions as well as diffuse interstitial and parenchymal opacities throughout the lung parenchyma bilaterally. PROCEDURE INTERPRETED AT [facility] DEPARTMENT OF RADIOLOGY Final Report Signed by: Bladimir Charles
--- NOTE | 2017-05-20 11:38 | Pulmonology Progress Note ---
Pulmonary - PN: Subj Interval history: Mr. Fischer is a 66-year-old white male who we saw in initial pulmonary consultation on 05/04/2017. At that time, our impressions were: #1: Acute altered mental status most likely secondary to #2 but consider other causes #2: Acute urinary tract infection #3: Ankylosing spondylitis with probable spinal stenosis. Anatomy and pain limited mobility. #4: Peripheral sensory neuropathy. His symptoms have gradually worsened over time. #5: Chronic venous stasis of the lower extremities. #6: Vitamin B deficiency. #7: Past history of tobacco abuse #8: COPD/asthma #9: Past history of high blood pressure #10: Hypothyroidism #11: Bilateral pleural effusions of unknown etiology #12: Dual-chamber cardiac pacemaker #13: History of marijuana use #14: History of compression fractures with chronic pain. Now under the care of Dr. Patel. #15: See past history 05/05/2017. Patient was seen today along with his . The patient is awake, alert, and oriented this morning. His theophylline was discontinued per the 's request yesterday. Of note, his theophylline level was 7.9. He has been seen in pain management consultation with Dr. Patel. His note has been reviewed. We appreciate his assistance. He will be out of town for the next few days, but upon his return we will begin tapering the patient's pain medications as per his note. Patient's lower extremities continue to be edematous. We will give Mr. Keith a one-time dose of IV Lasix. We will start Zaroxolyn 5 mg p.o. daily and KCl 20 mEq daily. Daily BMP/magnesium has been ordered. The patient's echocardiogram this admission as read by Dr. Vega showed an estimated EF of 60%, approximately 1+ mitral and aortic regurgitation , 1-2+ tricuspid regurgitation with a right ventricular systolic pressure of 60 mmHg plus the right atrial pressure suggesting severe pulmonary hypertension. This is a significant change from the echocardiogram done 04/12/[address] Nova which showed an EF estimated at 60%, grade 1 diastolic dysfunction, normal to mildly elevated filling pressures, mild aortic valve regurgitation, moderate ventricular hypertrophy with no demonstrable increase in right-sided pressure, and tricuspid regurgitation velocity suggesting a right ventricular systolic pressure of 23 mmHg plus the right atrial pressure. On chest x-ray today, the pleural effusion is improved. This patient has great difficulty laying flat given his ankylosing spondylitis, so we will begin diuresing him with his Zaroxolyn and see if his pleural effusion will resolve rather than proceed with CT PE protocol at this time. We will repeat a chest x-ray on Monday. Doppler venograms showed no evidence of dizziness thrombophlebitis. Abdominal ultrasound showed no ascites. Medications have been reviewed. Labs have been reviewed. White count is 5900 with a normal differential; H&H 10.7/33.6; platelet count 172,000; creatinine 0.40, BUN 8, electrolytes are normal; magnesium 2.5 Microbiology has been reviewed. Urine culture has grown E. coli. He is on Fortaz and Levaquin. Urine drug screen was positive for benzodiazepines and cannabinoids 05/08/2017 during the weekend the patient deteriorated. He developed a severe acidosis and a markedly elevated PCO2 and required movement to CCU along with intubation mechanical ventilation. He is still on the ventilator.His chest x- ray shows bibasilar infiltrates and some faint infiltrates in the right upper lung. Still has a small right pleural effusion. This is unexpected and I have to wonder about aspiration. We will plan to evaluate with fiberoptic bronchoscopy in the morning. His only positive cultures E. coli from his urine. ABGs have been ordered but are pending. Potassium is low at 3.0 and the patient will be placed on protocol. Natruretic peptide is 92. H&H is 10.8/ 31.9. White count is 8674.4 segs 7 lymphs and 16.1 monocytes. EKG shows no acute changes. At this point I am not entirely clear why the patient deteriorated so rapidly. 05/09/2017. Today's chest x-ray is better. Patient has cardiomegaly. He has bilateral alveolar and interstitial changes and he has a small to moderate size right pleural effusion. He is alert and oriented and can cooperate. Earlier today I evaluated patient with fiberoptic bronchoscopy. See the report. He had some mild erosive slightly friable bronchitis in the right lower lung that had the appearance of a recent pneumonia. This may be the etiology of his pleural effusion. The patient had only a small amount of sputum and both bronchial trees. I did not see any food or gastric content. Today the patient will go to stage II of his weaning protocol. The only positive culture is E. coli from the urine. ABGs on mechanical ventilation FiO2 40% shows a pH of 7.52 , PCO2 41.4, PO2 of 84.1 and a bicarb of 32.8. H&H is gradually dropping to 10.3/29.3. White count is 8276 segs and platelets are 141,000. Potassium is low at 3.2 and is being replaced. Theophylline level is 7.4. Last night the patient had atrial fib that required Cardizem and amiodarone. The patient's most recent echocardiogram (05/04/2017) showed pulmonary artery pressure above 70 whereas a month or so ago his pulmonary artery pressures were normal. We will repeat this today. Cardiology is seeing the patient in the past and placed cardiac pacemaker. Will last for follow-up evaluation. Also we have asked that his magnesium be checked. 05/10/2017. Patient's on stage III of the weaning protocol. Because of his anatomy chest x-ray is difficult to interpret. He has old pleural scarring on the right where he has had a previous pleural stripping. He has persistent pleural effusion on the right. Etiology of this is undetermined. His echocardiogram does not support congestive heart failure. He has no ascites on ultrasound of the abdomen. I discussed the possibility of thoracentesis by interventional radiologist with the and she is agreeable. We should send pleural fluid specimens for cytology, H&H, white blood cell count with differential, total protein, SGOT, LDH, Gram stain with bacterial culture, AFB stains and cultures. 05/15/2017. Patient is alert and oriented. His chest x-ray is better. His ABGs better. His lab is stable. He has been extubated today. Follow-up ABGs are pending. Findings and intentions were discussed with the patient's . Tuan Philip nurse practitioner was present 05/18/2017. Patient was bronchoscoped yesterday morning did well and suddenly developed a respiratory arrest followed by a short period of asystole on the night of 05/17/2017. He was intubated and I did an emergency bronchoscopy. His problem is retention of secretions were much more than I expected. This is slightly complicated by gastroesophageal reflux. Patient is going to need a trach. His is agreeable. ENT consultation is pending. Chest x-ray is stable today and ABGs are stable. He has has woken up and is been wide awake. 05/20/2017. On 05/19/2017 the patient had a trach placed. Dr. moreira's operative note is been reviewed. This was a long trach and ended 1-2 cm proximal to the carolyn. On the patient's chest x-ray he is flexed forward and the distal trachea appears to abut against the carolyn. I suspect this is why we are having problem passing the suction tube beyond the end of the trach. Methicillin-resistant staph aureus was grown from the patient's bronchoalveolar lavage is on 05/17/2017. ABGs on FiO2 of 50% mechanical ventilation show pH 7.312, PCO2 50 four-point, PO2 122 and a bicarb of 25 potassium is low normal at 3.5 H&H is stable. White count is stable. Vancomycin trough is 18.8. This is being managed by pharmacology Exam (Progress Note) - Constitutional Vitals: Period Temp Pulse Resp BP Sys/Ivey Pulse Ox Last 24 Hr 5 F-98.0 F 83-105 18-28 118-166/66-83 88-99 Exam: Neurologic. . Sedated Chest. Loose large airway congestion Heart no gallop Abdomen is obese, but nontender and nondistended; bowel sounds are positive 4 Extremities with nothing to suggest acute deep venous thrombophlebitis; bilateral pedal and pretibial edema; chronic venous stasis changes Neck. Also normal curvature secondary to ankylosing spondylitis. Musculoskeletal. Cervical thoracic and lumbar changes of ankylosing spondylitis Lymphatics. No submandibular cervical supraclavicular or epitrochlear adenopathy. The remainder the exam is noncontributory Plan. 05/08/2007 1. Fiberoptic bronchoscopy in the morning 2. Mechanical ventilation weaning protocol and physical therapy protocol 3. See today's note, above 05/09/2017. 1. Fiberoptic bronchoscopy showed no evidence of aspiration see report 2. Stage II to weaning protocol 3. Repeat echocardiogram with attention to recent onset of pulmonary hypertension 4. Replace potassium 5. Check magnesium 6. Daily chest x-ray ABGs and lab 7. Watch slow decline of H&H 8. Check bronchoscopy specimens 9. Cardiology consult 05/10/2017. 1. See today's note, above 2. Appreciate cardiology consultation 3. Fiberoptic bronchoscopy in the morning 4. Consult interventional radiologist for thoracentesis. Because of the patient's ankylosing spondylitis and anatomy of this will be difficult. See today's note above concerning studies when needed. This was discussed with the and she is agreeable 05/15/2017. 1. See today's note, above 2. Extubated 05/15/2017. Follow-up ABGs pending 3. Follow chest x-ray, ABGs and lab. 05/18/2017. 1. See my note above. 2. Intubated on the night of 05/17/2017. 3. ENT consultation for tracheostomy. 05/20/2017. 1. See my note, above. 2. Distal trachea appears to abut the carolyn 3. Weaning protocol. 4. Sputum's are still positive for methicillin-resistant staph aureus. Continue vancomycin Exam (Progress Note) - Constitutional Vitals: Period Temp Pulse Resp BP Sys/Ivey Pulse Ox Last 24 Hr 96.9 F-97.6 F 73-110 16-27 78-158/47-93 97-100 Results - Labs CBC & BMP: 05/20/17 04:46 05/20/17 04:46 Specialty Discharge - Follow Up or Referrals Follow up with: Bala Ramírez MD [Primary Care Provider] - 1 Week (Needs appt with Dr. iWlson office for pt to be seen within 1 week of discharge date.)
--- NOTE | 2017-05-20 12:25 | Operative Note ---
Date of procedure: 05/19/17 Pre-op diagnosis: Respiratory Failure Post-op diagnosis: same Procedure: Fiberoptic Tracheoscopy Anesthesia: none Surgeon / Physician: Adam Rachel Estimated blood loss: none Specimens: none sent Condition: critical Disposition: no change Results - Labs CBC & BMP: 05/20/17 04:46 05/20/17 04:46 Discharge Plan - Discharge Medications No Action Imipramine HCl 25 mg PO DAILY Levothyroxine Tab [Synthroid Tab] 100 mcg PO DAILY Folic Acid Tab 1 mg PO DAILY tablet Lidocaine 5% Patch [Lidoderm 5% Patch] 1 patch TRANSDERM DAILY patch miSOPROStol [Cytotec] 200 mcg PO DAILY tablet Thiamine Tab [Vitamin B1 Tab] 100 mg PO DAILY tablet Bisacodyl Tab [Dulcolax Tab] 5 mg PO DAILY PRN PRN Reason: Constipation Ascorbic Acid Tab [Vitamin C Tab] 500 mg PO DAILY Lactulose Liquid [Chronulac] 30 ml PO BID HYDROcodone/ACETAMIN 5-325 [[place] 5-325] 1 tablet PO Q8H PRN #90 tablet PRN Reason: Pain Moderate (4-7) Skin Healing Oint (Aquaphor) [Aquaphor] 1 applic TOP PRN PRN applic PRN Reason: Dry Skin Clorazepate [Tranxene] 3.75 mg PO BEDTIME fentaNYL 12 MCG/HR PATCH [Duragesic 12 Patch] 1 patch TRANSDERM Q3DAY Theophylline ER Tab 300 mg PO Q12H Bisoprolol [Zebeta] 5 mg PO DAILY tablet Multivitamin (Centrum) [Centrum Tab] 1 tablet PO DAILY tablet Albuterol Sulfate [Albuterol Neb] 2.5 mg RESP TX TID - Follow Up or Referral Follow Up: Bala Ramírez MD [Primary Care Provider] - 1 Week (Needs appt with Dr. Wilson office for pt to be seen within 1 week of discharge date.) - Forms/Instructions
--- NOTE | 2017-05-20 12:41 | Consultation ---
History of Present Illness - Data of Consult Consult date: 05/19/17 Requesting Physician: Nichol Trevizo - Consult Narrative Reason for consult: Desaturations, difficulty suctioning History of present illness: Mr. Fischer is a 66 year old male intubate has extensive history of kyphoscoliosis and thoracic abnormalities from ankylosing spondylitis. Recently had trachesotomy performed this morning. Now has some desats with heavy secretions. No hemoptysis. Nursing has re-positioned patient with good sats in the hiugh 90s and CO2 low 50s. Pt has long smoking history, and COPD as well as several medical problems. Fiberoptic scope via trach reveals the green party wall of the trachea, just distal to the tip of the tube has a posterior external compression effect, narrowing the lumen, and interfering with furthur passage of the #8 past this point. In addition this also partially occludes the end of the trach tube by the soft green party wall. Most ventilitory flow is being delivered via the Abernathy eye. Impression: a precarious patient with multiple critical medical problems. Nursing is suctioning well now with some resistance. Sats and CO2 acceptable. Rec: The enemy of good is better. Would not manipulate at this time. Would allow stoma to mature over next several days, then return to OR for tracheoscopy , and reposition the current trach tube, with a twisting motion to free up the distal tip off the green party wall, or perhaps even switching to a smaller #6 tube, or even an endotracheal tube. Passing a bougie into the airway and sliding tubes over it may be helpful. Will leave bougie and fiberoptic scope at bedside. CC: Eusebio Hamilton MD - Home Medications and Allergies Home Medications: Home Medications Medication Instructions Recorded Confirmed Type Imipramine HCl 25 mg PO DAILY 02/20/17 05/03/17 History Levothyroxine Tab [Synthroid Tab] 100 mcg PO DAILY 02/20/17 05/03/17 History Theophylline ER Tab 300 mg PO Q12H 02/20/17 05/03/17 History Bisoprolol [Zebeta] 5 mg PO DAILY tablet 03/02/17 05/03/17 Rx Folic Acid Tab 1 mg PO DAILY tablet 03/02/17 05/03/17 Rx Lidocaine 5% Patch [Lidoderm 5% 1 patch TRANSDERM DAILY patch 03/02/17 Rx Patch] Multivitamin (Centrum) [Centrum 1 tablet PO DAILY tablet 03/02/17 05/03/17 Rx Tab] Thiamine Tab [Vitamin B1 Tab] 100 mg PO DAILY tablet 03/02/17 05/03/17 Rx miSOPROStol [Cytotec] 200 mcg PO DAILY tablet 03/02/17 05/03/17 Rx Albuterol Sulfate [Albuterol Neb] 2.5 mg RESP TX TID 04/11/17 05/03/17 History Ascorbic Acid Tab [Vitamin C Tab] 500 mg PO DAILY 04/11/17 05/03/17 History Bisacodyl Tab [Dulcolax Tab] 5 mg PO DAILY PRN 04/11/17 05/03/17 History Lactulose Liquid [Chronulac] 30 ml PO BID 04/11/17 05/03/17 History HYDROcodone/ACETAMIN 5-325 [[place] 1 tablet PO Q8H PRN #90 tablet 04/19/17 Rx 5-325] Skin Healing Oint (Aquaphor) 1 applic TOP PRN PRN applic 04/19/17 05/03/17 Rx [Aquaphor] Clorazepate [Tranxene] 3.75 mg PO BEDTIME 05/04/17 05/04/17 History fentaNYL 12 MCG/HR PATCH 1 patch TRANSDERM Q3DAY 05/04/17 05/04/17 History [Duragesic 12 Patch] Allergies/Adverse Reactions: Allergies Allergy/AdvReac Type Severity Reaction Status Date / Time codeine Allergy Unknown UNRESPONSIV Verified 04/12/17 00:48 E acetaminophen [From Percocet] Allergy Verified 04/12/17 00:48 escitalopram [From Lexapro] Allergy Verified 04/12/17 00:48 gabapentin [From Neurontin] Allergy Verified 04/12/17 00:48 Hydromorphone [From Dilaudid] Allergy Verified 04/12/17 00:48 Oxycodone [From Percocet] Allergy Verified 04/12/17 00:48 Medical,Surgical,& Family Hx - Medical History Cardio: History of: CAD, Hypertension, Pacemaker (Dual-chamber placed in February [address] Clemens) No history of: AL, PVD Psychological: History of: Anxiety Disorders, Depression Neurology: History of: Vertigo HEENT: History of: Eye Problem (WEARS GLASSES, NEAR SIGHTED, CATARACT LEFT EYE) Endocrine: History of: Thyroid Disorder No history of: Diabetes Mellitus (IDDM), Diabetes Mellitus (NIDDM), Dyslipidemia Respiratory: History of: Bronchitis, COPD, Intubation, Pulmonary Hypertension ( Likely secondary to COPD), Pneumonia Renal: No history of: Renal Problems Genitourinary: History of: Prostate Problems (PROSTATE CA) Gastrointestinal: History of: Gastrointestinal Bleed, Hemorrhoids Musculoskeletal: History of: Back/Neck Problems, Degenerative Disk Disease, Herniated Disk, Musculoskeletal Problems (Ankylosing spondylitis) Hematology: No history of: Anemia Other: History of: Cancer (prostate ca), Miscellaneous Medical Problems ( ankylosing spondylitis) - Surgical History Cardiac Surgeries: Sugical HX of: Cardiac Catheterization Patient Denies: Femoral-Popliteal Bypass Graft, Cardiac Surgery, Carotid Endarterectomy, Internal Defibrillator, Vascular Access Devices Thoracic Surgeries: Patient denies;: Organ Transplant Neurologic Surgeries: Patient denies: Neurologic Surgery HEENT Surgeries: Surgical HX of: Tonsilectomy & Adenoidectomy Patient denies: Carotid Endarterectomy Abdominal Surgeries: Patient denies: Abdominal Surgery, Splenectomy Reproductive Surgeries: Surgical HX of;: Genitourinary Surgery, Prostate Surgery (PROSTATECTOMY) Orthopedic Surgeries: Surgical HX of;: Orthopedic Surgery (RIGHT ANKLE FRACTURE) - Family History Family History: Reports;: Family Cancer (FATHER (TESTICULAR CA)), Family Diabetes (FATHER), Family Heart Disease (MOTHER), Family Hypertension - Social History Smoking Status: Former smoker Frequency of Alcohol Use: None Type of Drug Use: None Exam - Constitutional Vitals: Period Temp Pulse Resp BP Sys/Ivey Pulse Ox Last 24 Hr 96.9 F-97.6 F 73-95 16-27 78-158/47-93 97-100 Results - Labs CBC & BMP: 05/20/17 04:46 05/20/17 04:46 Quality Measures - Stroke Symptom Onset Unknown: No Specialty Discharge - Follow Up or Referrals Follow up with: Bala Ramírez MD [Primary Care Provider] - 1 Week (Needs appt with Dr. Wilson office for pt to be seen within 1 week of discharge date.)
[2017-05-20] MEDS: FLUCONAZOLE INJ 200 MG in PREMIX 1 EACH IV SCH (13:59)
[2017-05-20] MEDS ORDERED: LORazepam 2 MG/1 ML VIAL IV PRN (17:30)
--- NOTE | 2017-05-20 18:06 | Event Note ---
Discussion with patient's this evening. She reports that she had an extensive conversation with Dr. Rachel earlier this afternoon and all of her questions about the patient's trach were answered. We discussed the patient's code status. She reports that the FULL CODE status was made when patient was in much better health. She would like to now make patient a DO NOT RESUSCITATE. She believes that the patient would not want any heroic measures performed if he were to stop breathing or his heart were to stop breathing.
[2017-05-20] MEDS: MORPHINE 2 MG/1 ML SYRINGE IV PRN (20:25)
[2017-05-20] MEDS: CLORAZEPATE 3.75 MG TABLET PO SCH (20:25)
[2017-05-20] MEDS: DILTIAZEM INJ 100 MG in SODIUM CHLORIDE 0.9% 100 ML IV SCH (21:37)
[2017-05-21] MEDS: PROPOFOL 1,000 MG/100 ML BOTTLE IV SCH ×8 (00:06→23:19)
[2017-05-21] MEDS: INSULIN LISPRO 100 UNIT/ML SUBCUT SCH ×5 (00:06→23:51)
[2017-05-21] MEDS: ALBUTEROL/IPRATROPIUM 3 ML NEB RESP TX SCH ×4 (00:25→19:09)
[2017-05-21 02:59] LABS: ABG Base Excess -0.7 MMOL/L (-2.5-2.5); ABG HCO3 26.7 MMOL/L (20-26); ABG Oxygen Saturation 98.8 % (95-100); ABG PCO2 58.2 MM HG (35-48); ABG PH 7.279 (7.35-7.45); ABG PO2 192.2 MM HG (80-95); ABG TCO2 28.5 MMOL/L (23-27); Allen Test Positive; Pt O2 Delivery Device Ventilator
[2017-05-21] MEDS: ERYTHROMYCIN INJ 250 MG in SODIUM CHLORIDE 0.9% 100 ML IV SCH ×4 (03:30→20:08)
[2017-05-21] MEDS: ENOXAPARIN 40 MG/0.4 ML SYRINGE SUBCUT SCH (03:30)
[2017-05-21] MEDS: VANCOMYCIN INJ 1,750 MG in SODIUM CHLORIDE 0.9% 500 ML IV SCH (03:30)
[2017-05-21] MEDS: PHENYLEPHRINE DRIP 40 MG/250 ML PREMIX IV SCH (05:15)
[2017-05-21] MEDS: LEVOTHYROXINE 100 MCG TABLET PO SCH (06:03)
[2017-05-21 07:47] LABS: Calcium 8.5 MG/DL (8.5-10.1); Osmolality,Calculated 278.3 MOS/KG (273-304); Potassium 4.3 MMOL/L (3.5-5.1)
[2017-05-21] MEDS: LINACLOTIDE 145 MCG CAPSULE PO SCH (08:57)
[2017-05-21] MEDS: FUROSEMIDE 20 MG/2 ML VIAL IV SCH (08:57)
[2017-05-21] MEDS: POLYETHYLENE GLYCOL POWDER 17 GM PACK PO SCH (08:58)
[2017-05-21] MEDS: LIDOCAINE 5% PATCH TRANSDERM SCH (08:58)
[2017-05-21] MEDS: ASCORBIC ACID 500 MG TABLET PO SCH (08:58)
[2017-05-21] MEDS: POTASSIUM CHLORIDE 20 MEQ PACK PO SCH (08:58)
[2017-05-21] MEDS: THIAMINE 100 MG TABLET PO SCH (08:59)
[2017-05-21] MEDS: BISOPROLOL 5 MG TABLET PO SCH (08:59)
[2017-05-21] MEDS: FOLIC ACID 1 MG TABLET PO SCH (08:59)
[2017-05-21] MEDS: SPIRONOLACTONE 25 MG TABLET PO SCH ×2 (08:59→20:08)
[2017-05-21] MEDS: PANTOPRAZOLE 40 MG TABLET PO SCH (08:59)
[2017-05-21] MEDS: MULTIVITAMIN (CENTRUM) TABLET PO SCH (08:59)
[2017-05-21] MEDS: miSOPROStol 200 MCG TABLET PO SCH (08:59)
[2017-05-21] MEDS: IMIPRAMINE 25 MG TABLET PO SCH (08:59)
[2017-05-21] MEDS: MUPIROCIN 2% OINT 22 GM TUBE TOP SCH ×2 (09:11→20:09)
[2017-05-21 12:07] LABS: Basophils # 0.1 10*3/uL (0.0-0.2); Basophils % 0.7 % (0.0-0.8); Eosinophils # 0.4 10*3/uL (0.0-0.87); Eosinophils % 4.5 % (0.00-10.9); Hematocrit 32.4 VOL% (42.0-52.0); Immature Granulocytes % 1.3 %; Immature Granulocytes Absolute 0.12 #; Lymphocytes # 0.6 10*3/uL (1.4-4.0); Lymphocytes % 6.6 % (21.2-54.2); Mean Corpuscular HGB Conc 30.9 GM/DL (32-36); Mean Corpuscular Hemoglobin 32 PG (27-34); Mean Corpuscular Volume 103.5 FL (87-102); Mean Platelet Volume 12.5 FL (9.6-12.0); Monocytes % 10.4 % (1.7-12.7); Neutrophils # 7.3 10*3/uL (1.4-7.4); Neutrophils % 76.5 % (38.7-73.9); Platelet Count 338 T/CUMM (130-400); Red Blood Count 3.13 MC/CUMM (3.8-5.5); Red Cell Distribution Width 13.5 % (9.3-17.3); White Blood Count 9.5 T/CUMM (4-12)
--- NOTE | 2017-05-21 12:25 | XRay Report ---
Portable chest May 21, 2017 Indication: Pneumonia, respiratory failure. Comparison images from previous day at 0311 hours Findings: Tubes and lines are unchanged. Cardiomediastinal contours are stable. No change in the diffuse interstitial opacities or pleural parenchymal changes within the lung bases. Impression: No interval change PROCEDURE INTERPRETED AT [facility] DEPARTMENT OF RADIOLOGY Final Report Signed by: Bladimir Charles
--- NOTE | 2017-05-21 12:35 | Pulmonology Progress Note ---
Pulmonary - PN: Subj Interval history: Mr. Fischer is a 66-year-old white male who we saw in initial pulmonary consultation on 05/04/2017. At that time, our impressions were: #1: Acute altered mental status most likely secondary to #2 but consider other causes #2: Acute urinary tract infection #3: Ankylosing spondylitis with probable spinal stenosis. Anatomy and pain limited mobility. #4: Peripheral sensory neuropathy. His symptoms have gradually worsened over time. #5: Chronic venous stasis of the lower extremities. #6: Vitamin B deficiency. #7: Past history of tobacco abuse #8: COPD/asthma #9: Past history of high blood pressure #10: Hypothyroidism #11: Bilateral pleural effusions of unknown etiology #12: Dual-chamber cardiac pacemaker #13: History of marijuana use #14: History of compression fractures with chronic pain. Now under the care of Dr. Patel. #15: See past history 05/05/2017. Patient was seen today along with his . The patient is awake, alert, and oriented this morning. His theophylline was discontinued per the 's request yesterday. Of note, his theophylline level was 7.9. He has been seen in pain management consultation with Dr. Patel. His note has been reviewed. We appreciate his assistance. He will be out of town for the next few days, but upon his return we will begin tapering the patient's pain medications as per his note. Patient's lower extremities continue to be edematous. We will give Mr. Keith a one-time dose of IV Lasix. We will start Zaroxolyn 5 mg p.o. daily and KCl 20 mEq daily. Daily BMP/magnesium has been ordered. The patient's echocardiogram this admission as read by Dr. Vega showed an estimated EF of 60%, approximately 1+ mitral and aortic regurgitation , 1-2+ tricuspid regurgitation with a right ventricular systolic pressure of 60 mmHg plus the right atrial pressure suggesting severe pulmonary hypertension. This is a significant change from the echocardiogram done 04/12/[address] Nova which showed an EF estimated at 60%, grade 1 diastolic dysfunction, normal to mildly elevated filling pressures, mild aortic valve regurgitation, moderate ventricular hypertrophy with no demonstrable increase in right-sided pressure, and tricuspid regurgitation velocity suggesting a right ventricular systolic pressure of 23 mmHg plus the right atrial pressure. On chest x-ray today, the pleural effusion is improved. This patient has great difficulty laying flat given his ankylosing spondylitis, so we will begin diuresing him with his Zaroxolyn and see if his pleural effusion will resolve rather than proceed with CT PE protocol at this time. We will repeat a chest x-ray on Monday. Doppler venograms showed no evidence of dizziness thrombophlebitis. Abdominal ultrasound showed no ascites. Medications have been reviewed. Labs have been reviewed. White count is 5900 with a normal differential; H&H 10.7/33.6; platelet count 172,000; creatinine 0.40, BUN 8, electrolytes are normal; magnesium 2.5 Microbiology has been reviewed. Urine culture has grown E. coli. He is on Fortaz and Levaquin. Urine drug screen was positive for benzodiazepines and cannabinoids 05/08/2017 during the weekend the patient deteriorated. He developed a severe acidosis and a markedly elevated PCO2 and required movement to CCU along with intubation mechanical ventilation. He is still on the ventilator.His chest x- ray shows bibasilar infiltrates and some faint infiltrates in the right upper lung. Still has a small right pleural effusion. This is unexpected and I have to wonder about aspiration. We will plan to evaluate with fiberoptic bronchoscopy in the morning. His only positive cultures E. coli from his urine. ABGs have been ordered but are pending. Potassium is low at 3.0 and the patient will be placed on protocol. Natruretic peptide is 92. H&H is 10.8/ 31.9. White count is 8674.4 segs 7 lymphs and 16.1 monocytes. EKG shows no acute changes. At this point I am not entirely clear why the patient deteriorated so rapidly. 05/09/2017. Today's chest x-ray is better. Patient has cardiomegaly. He has bilateral alveolar and interstitial changes and he has a small to moderate size right pleural effusion. He is alert and oriented and can cooperate. Earlier today I evaluated patient with fiberoptic bronchoscopy. See the report. He had some mild erosive slightly friable bronchitis in the right lower lung that had the appearance of a recent pneumonia. This may be the etiology of his pleural effusion. The patient had only a small amount of sputum and both bronchial trees. I did not see any food or gastric content. Today the patient will go to stage II of his weaning protocol. The only positive culture is E. coli from the urine. ABGs on mechanical ventilation FiO2 40% shows a pH of 7.52 , PCO2 41.4, PO2 of 84.1 and a bicarb of 32.8. H&H is gradually dropping to 10.3/29.3. White count is 8276 segs and platelets are 141,000. Potassium is low at 3.2 and is being replaced. Theophylline level is 7.4. Last night the patient had atrial fib that required Cardizem and amiodarone. The patient's most recent echocardiogram (05/04/2017) showed pulmonary artery pressure above 70 whereas a month or so ago his pulmonary artery pressures were normal. We will repeat this today. Cardiology is seeing the patient in the past and placed cardiac pacemaker. Will last for follow-up evaluation. Also we have asked that his magnesium be checked. 05/10/2017. Patient's on stage III of the weaning protocol. Because of his anatomy chest x-ray is difficult to interpret. He has old pleural scarring on the right where he has had a previous pleural stripping. He has persistent pleural effusion on the right. Etiology of this is undetermined. His echocardiogram does not support congestive heart failure. He has no ascites on ultrasound of the abdomen. I discussed the possibility of thoracentesis by interventional radiologist with the and she is agreeable. We should send pleural fluid specimens for cytology, H&H, white blood cell count with differential, total protein, SGOT, LDH, Gram stain with bacterial culture, AFB stains and cultures. 05/15/2017. Patient is alert and oriented. His chest x-ray is better. His ABGs better. His lab is stable. He has been extubated today. Follow-up ABGs are pending. Findings and intentions were discussed with the patient's . Tuan Philip nurse practitioner was present 05/18/2017. Patient was bronchoscoped yesterday morning did well and suddenly developed a respiratory arrest followed by a short period of asystole on the night of 05/17/2017. He was intubated and I did an emergency bronchoscopy. His problem is retention of secretions were much more than I expected. This is slightly complicated by gastroesophageal reflux. Patient is going to need a trach. His is agreeable. ENT consultation is pending. Chest x-ray is stable today and ABGs are stable. He has has woken up and is been wide awake. 05/20/2017. On 05/19/2017 the patient had a trach placed. Dr. moreira's operative note is been reviewed. This was a long trach and ended 1-2 cm proximal to the carolyn. On the patient's chest x-ray he is flexed forward and the distal trachea appears to abut against the carolyn. I suspect this is why we are having problem passing the suction tube beyond the end of the trach. Methicillin-resistant staph aureus was grown from the patient's bronchoalveolar lavage is on 05/17/2017. ABGs on FiO2 of 50% mechanical ventilation show pH 7.312, PCO2 50 four-point, PO2 122 and a bicarb of 25 potassium is low normal at 3.5 H&H is stable. White count is stable. Vancomycin trough is 18.8. This is being managed by pharmacology 05/21/2017. ENT note is reviewed. Looks like to me on chest x-ray the tip of the patient's trach tube abuts against the carolyn and I suspect this is why cannot be suctioned. I have not bronchoscoped the patient. I will probably need to bronchoscope him soon for retention of secretions. His chest x-ray however is better pleural effusion on the right is improved and the atelectasis at the bases has improved. Oxygenation is adequate patient does have some hypercarbia. Electrolytes are normal. Creatinine 0.2 BUN is 8. CBC is stable. Vancomycin trough level is 21.5. Pharmacology is managing and adjusting this. Last bronchoscopy specimens from 05/17/2017 are growing methicillin-resistant staph aureus. Exam (Progress Note) - Constitutional Vitals: Period Temp Pulse Resp BP Sys/Ivey Pulse Ox Last 24 Hr 5 F-98.0 F 83-105 18-28 118-166/66-83 88-99 Exam: Neurologic. . Sedated Chest. Loose large airway congestion Heart no gallop Abdomen is obese, but nontender and nondistended; bowel sounds are positive 4 Extremities with nothing to suggest acute deep venous thrombophlebitis; bilateral pedal and pretibial edema; chronic venous stasis changes Neck. Also normal curvature secondary to ankylosing spondylitis. Musculoskeletal. Cervical thoracic and lumbar changes of ankylosing spondylitis Lymphatics. No submandibular cervical supraclavicular or epitrochlear adenopathy. The remainder the exam is noncontributory Plan. 05/08/2007 1. Fiberoptic bronchoscopy in the morning 2. Mechanical ventilation weaning protocol and physical therapy protocol 3. See today's note, above 05/09/2017. 1. Fiberoptic bronchoscopy showed no evidence of aspiration see report 2. Stage II to weaning protocol 3. Repeat echocardiogram with attention to recent onset of pulmonary hypertension 4. Replace potassium 5. Check magnesium 6. Daily chest x-ray ABGs and lab 7. Watch slow decline of H&H 8. Check bronchoscopy specimens 9. Cardiology consult 05/10/2017. 1. See today's note, above 2. Appreciate cardiology consultation 3. Fiberoptic bronchoscopy in the morning 4. Consult interventional radiologist for thoracentesis. Because of the patient's ankylosing spondylitis and anatomy of this will be difficult. See today's note above concerning studies when needed. This was discussed with the and she is agreeable 05/15/2017. 1. See today's note, above 2. Extubated 05/15/2017. Follow-up ABGs pending 3. Follow chest x-ray, ABGs and lab. 05/18/2017. 1. See my note above. 2. Intubated on the night of 05/17/2017. 3. ENT consultation for tracheostomy. 05/20/2017. 1. See my note, above. 2. Distal trachea appears to abut the carolyn 3. Weaning protocol. 4. Sputum's are still positive for methicillin-resistant staph aureus. Continue vancomycin 05/21/2017. 1. See my note from 06-04 and 05/21/2017. Suspected will have to adjust endotracheal tube. 2. Continue present regimen. Exam (Progress Note) - Constitutional Vitals: Period Temp Pulse Resp BP Sys/Ivey Pulse Ox Last 24 Hr 97.0 F-98.8 F 61-96 15-28 80-138/48-89 95-100 Results - Labs CBC & BMP: 05/21/17 10:53 05/21/17 07:03 Specialty Discharge - Follow Up or Referrals Follow up with: Bala Ramírez MD [Primary Care Provider] - 1 Week (Needs appt with Dr. Wilson office for pt to be seen within 1 week of discharge date.)
[2017-05-21] MEDS: FLUCONAZOLE INJ 200 MG in PREMIX 1 EACH IV SCH (13:13)
--- NOTE | 2017-05-21 16:06 | Hospitalist Progress Note ---
Assessment and Plan (1) Altered mental status Status: Resolved Assessment and plan: Patient now on ventilator Current Visit: No Qualifiers: Altered mental status type: disorientation Qualified Code(s): R41.0 - Disorientation, unspecified (2) Hypoxia Status: Acute Current Visit: Yes (3) Pleural effusion Status: Resolved Assessment and plan: s/p thoracentesis, appeared exudative Current Visit: Yes (4) UTI (urinary tract infection) Status: Acute Assessment and plan: Urine culture growing E.coli On fortaz and vancomycin Current Visit: Yes (5) Lower extremity edema Status: Acute Assessment and plan: Continue lasix Current Visit: No (6) Dysphagia, pharyngoesophageal Status: Acute Assessment and plan: s/p EGD by GI Current Visit: Yes (7) Chronic venous insufficiency Status: Chronic Current Visit: No (8) Respiratory failure Status: Acute Assessment and plan: Pulmonary managing Extubated 05/15/17 Re-intubated 05/17 due to respiratory failure secondary to excess secretions Trach placed Difficult to suction, ENT assisting Bronchial washings growing gram positive cocci, on vancomcyin Current Visit: Yes Hospitalist: Subjective Interval history: No acute events overnight. Exam - Constitutional Vitals: Period Temp Pulse Resp BP Sys/Ivey Pulse Ox Last 24 Hr 97.0 F-98.8 F 65-99 16-28 85-138/54-89 95-100 General appearance: normal weight - Head Head exam: Present: normocephalic, atraumatic - Eye Eye exam: Present: EOMI Pupils: Present: SAMSON - ENT ENT exam: Present: normal exam - Neck Neck exam: Present: normal inspection - Respiratory Respiratory exam: Present: clear to auscultation bilaterally. Absent: rhonchi, wheezes - Cardiovascular Cardiovascular exam: Present: regular rate and rhythm - GI/Abdominal GI/Abdominal exam: Present: normal bowel sounds - Extremities Exam Extremities exam: Present: normal inspection - Back Exam Back exam: Present: normal inspection - Neurological Exam Neurological exam: Present: other (sedated) - Psychiatric Psychiatric exam: Absent: agitated, anxious - Skin Skin exam: Present: warm, intact Results - Labs CBC & BMP: 05/21/17 10:53 05/21/17 07:03 Quality Measures - Stroke Symptom Onset Unknown: No Specialty Discharge - Follow Up or Referrals Follow up with: Bala Ramírez MD [Primary Care Provider] - 1 Week (Needs appt with Dr. Wilson office for pt to be seen within 1 week of discharge date.)
--- NOTE | 2017-05-21 16:37 | Progress Note ---
Family Medicine PN Sub Interval history: Nurses report suctioning improved and airway stable lst 24 hrs. wound clean and dry. Reamains on pressors since Propofol used to sedate. No change in trach or respiratory status from ENT standpoint. Did have long discussion with with about the plan going forward. She wants to declare him a DNR and take him home so to be followed by hospice. Iexplained his douglas needs to mature over the next few days, and the CXR reveals he would benefit from a smaller trach to overcome the kyphosis effect. She agrees not to attempt anything this weekend, so as not to precipitate a crisis. Next week he needs to go back to the OR to have the trach scoped thoroughly, and place a different airway, probably a #6. Stable as of this visit. Exam (Progress Note) - Constitutional Vitals: Period Temp Pulse Resp BP Sys/Ivey Pulse Ox Last 24 Hr 97.0 F-98.8 F 65-99 16-28 85-138/54-89 95-100 Results - Labs CBC & BMP: 05/21/17 10:53 05/21/17 07:03 Quality Measures - Stroke Symptom Onset Unknown: No Specialty Discharge - Follow Up or Referrals Follow up with: Bala Ramírez MD [Primary Care Provider] - 1 Week (Needs appt with Dr. Wilson office for pt to be seen within 1 week of discharge date.)
[2017-05-21] MEDS: CLORAZEPATE 3.75 MG TABLET PO SCH (20:09)
[2017-05-21] MEDS: DILTIAZEM INJ 100 MG in SODIUM CHLORIDE 0.9% 100 ML IV SCH (21:34)
[2017-05-21] MEDS ORDERED: HEPARIN 5,000 UNIT/1 ML VIAL ONE (21:38)
[2017-05-22] MEDS: ALBUTEROL/IPRATROPIUM 3 ML NEB RESP TX SCH ×4 (01:11→19:05)
[2017-05-22] MEDS: PROPOFOL 1,000 MG/100 ML BOTTLE IV SCH ×5 (02:21→18:31)
[2017-05-22 03:10] LABS: ABG Base Excess -3.1 MMOL/L (-2.5-2.5); ABG HCO3 21.8 MMOL/L (20-26); ABG Oxygen Saturation 99.2 % (95-100); ABG PCO2 57.5 MM HG (35-48); ABG PH 7.246 (7.35-7.45); Allen Test Positive; Pt O2 Delivery Device Ventilator
[2017-05-22] MEDS: VANCOMYCIN INJ 1,750 MG in SODIUM CHLORIDE 0.9% 500 ML IV SCH (03:12)
[2017-05-22] MEDS: ERYTHROMYCIN INJ 250 MG in SODIUM CHLORIDE 0.9% 100 ML IV SCH ×4 (03:12→20:27)
[2017-05-22] MEDS: ENOXAPARIN 40 MG/0.4 ML SYRINGE SUBCUT SCH (03:13)
[2017-05-22] MEDS: LEVOTHYROXINE 100 MCG TABLET PO SCH (06:17)
[2017-05-22] MEDS: INSULIN LISPRO 100 UNIT/ML SUBCUT SCH ×3 (06:28→18:10)
--- NOTE | 2017-05-22 09:04 | XRay Report ---
Portable chest May 22, 2017 at 0311 hours Indication: Respiratory failure Comparison images from previous day at 0335 hours Findings: Cardiomediastinal contours are stable. Tubes and lines are unchanged in position. Bilateral pleural and parenchymal opacities are likely unchanged if not only minimally progressed. Slight improvement in the interstitial pattern throughout the upper lobes. No acute osseous abnormalities. Impression: Question Question slight worsening of the bilateral lower lobe pleural and parenchymal opacities PROCEDURE INTERPRETED AT [facility] DEPARTMENT OF RADIOLOGY Final Report Signed by: Bladimir Charles
[2017-05-22] MEDS: BISOPROLOL 5 MG TABLET PO SCH (09:28)
[2017-05-22] MEDS: FOLIC ACID 1 MG TABLET PO SCH (09:29)
[2017-05-22] MEDS: POTASSIUM CHLORIDE 20 MEQ PACK PO SCH (09:29)
[2017-05-22] MEDS: MULTIVITAMIN (CENTRUM) TABLET PO SCH (09:29)
[2017-05-22] MEDS: miSOPROStol 200 MCG TABLET PO SCH (09:29)
[2017-05-22] MEDS: THIAMINE 100 MG TABLET PO SCH (09:29)
[2017-05-22] MEDS: PANTOPRAZOLE 40 MG TABLET PO SCH (09:30)
[2017-05-22] MEDS: SPIRONOLACTONE 25 MG TABLET PO SCH ×2 (09:30→20:27)
[2017-05-22] MEDS: ASCORBIC ACID 500 MG TABLET PO SCH (09:30)
[2017-05-22] MEDS: IMIPRAMINE 25 MG TABLET PO SCH (09:30)
[2017-05-22] MEDS: MUPIROCIN 2% OINT 22 GM TUBE TOP SCH ×2 (09:51→20:27)
[2017-05-22] MEDS: POLYETHYLENE GLYCOL POWDER 17 GM PACK PO SCH (09:51)
[2017-05-22] MEDS: LINACLOTIDE 145 MCG CAPSULE PO SCH (09:51)
--- NOTE | 2017-05-22 09:51 | Progress Note ---
Assessment and Plan (1) Ventilator dependent Status: Acute Assessment and plan: Remains stable. has made pt DNR. May need replacement of trach in OR as resistance to suctioning still intermittent. would allow stoma to mature until later this week, and use Eschman bougie to change trach in OR and use GlideScope Current Visit: Yes Family Medicine PN Sub Interval history: No change, stable vitalsw.Sats high 90's, still ABGs show acidosis from CO2 in high 50s Exam (Progress Note) - Constitutional Vitals: Period Temp Pulse Resp BP Sys/Ivey Pulse Ox Last 24 Hr 97.0 F-98.8 F 86-99 14-28 79-153/49-94 96-100 - Neck Neck exam: Present: other (Trach stable. wound dry, no change) Results - Labs CBC & BMP: 05/21/17 10:53 05/21/17 07:03 Quality Measures - Stroke Symptom Onset Unknown: No Specialty Discharge - Follow Up or Referrals Follow up with: Bala Ramírez MD [Primary Care Provider] - 1 Week (Needs appt with Dr. Wilson office for pt to be seen within 1 week of discharge date.)
[2017-05-22] MEDS: FUROSEMIDE 20 MG/2 ML VIAL IV SCH (09:58)
[2017-05-22] MEDS: LIDOCAINE 5% PATCH TRANSDERM SCH (10:04)
--- NOTE | 2017-05-22 10:24 | Hospitalist Progress Note ---
Assessment and Plan (1) Altered mental status Status: Resolved Assessment and plan: Patient now on ventilator Current Visit: No Qualifiers: Altered mental status type: disorientation Qualified Code(s): R41.0 - Disorientation, unspecified (2) Hypoxia Status: Acute Current Visit: Yes (3) Pleural effusion Status: Resolved Assessment and plan: s/p thoracentesis, appeared exudative Current Visit: Yes (4) UTI (urinary tract infection) Status: Acute Assessment and plan: Urine culture growing E.coli On fortaz and vancomycin Current Visit: Yes (5) Lower extremity edema Status: Acute Assessment and plan: Continue lasix Current Visit: No (6) Dysphagia, pharyngoesophageal Status: Acute Assessment and plan: s/p EGD by GI Current Visit: Yes (7) Chronic venous insufficiency Status: Chronic Current Visit: No (8) Respiratory failure Status: Acute Assessment and plan: Pulmonary managing Extubated 05/15/17 Re-intubated 05/17 due to respiratory failure secondary to excess secretions Trach placed Difficult to suction, ENT assisting Bronchial washings growing gram positive cocci, on vancomcyin Current Visit: Yes Hospitalist: Subjective Interval history: No acute events overnight. Sedated. Still with difficulty suctioning patient. Tube feeds currently being held. Afraid of patient aspirating and then being unable to be suctioned. If this does not improve soon, might have to consider tpn. Exam - Constitutional Vitals: Period Temp Pulse Resp BP Sys/Ivey Pulse Ox Last 24 Hr 97.0 F-98.8 F 86-99 14-28 79-153/49-94 96-100 General appearance: normal weight - Head Head exam: Present: normocephalic, atraumatic - Eye Eye exam: Present: EOMI Pupils: Present: SAMSON - ENT ENT exam: Present: normal exam - Neck Neck exam: Present: normal inspection - Respiratory Respiratory exam: Present: clear to auscultation bilaterally. Absent: wheezes - Cardiovascular Cardiovascular exam: Present: regular rate and rhythm - GI/Abdominal GI/Abdominal exam: Present: normal bowel sounds, soft. Absent: tenderness, rebound - Extremities Exam Extremities exam: Present: normal inspection - Back Exam Back exam: Present: normal inspection - Neurological Exam Neurological exam: Present: other (sedated) - Psychiatric Psychiatric exam: Absent: agitated, anxious - Skin Skin exam: Present: warm, intact Results - Labs CBC & BMP: 05/21/17 10:53 05/21/17 07:03 Quality Measures - Stroke Symptom Onset Unknown: No Specialty Discharge - Follow Up or Referrals Follow up with: Bala Ramírez MD [Primary Care Provider] - 1 Week (Needs appt with Dr. Wilson office for pt to be seen within 1 week of discharge date.)
[2017-05-22 10:43] LABS: Basophils # 0.1 10*3/uL (0.0-0.2); Basophils % 0.8 % (0.0-0.8); Eosinophils # 0.2 10*3/uL (0.0-0.87); Eosinophils % 1.3 % (0.00-10.9); Hematocrit 35.5 VOL% (42.0-52.0); Immature Granulocytes % 1.8 %; Immature Granulocytes Absolute 0.22 #; Lymphocytes # 0.7 10*3/uL (1.4-4.0); Lymphocytes % 5.7 % (21.2-54.2); Mean Corpuscular Hemoglobin 32 PG (27-34); Mean Corpuscular Volume 102.3 FL (87-102); Mean Platelet Volume 11.4 FL (9.6-12.0); Monocytes # 1.5 10*3/uL (0.11-0.8); Monocytes % 12.1 % (1.7-12.7); Neutrophils # 9.9 10*3/uL (1.4-7.4); Neutrophils % 78.3 % (38.7-73.9); Platelet Count 380 T/CUMM (130-400); Red Blood Count 3.47 MC/CUMM (3.8-5.5); Red Cell Distribution Width 13.3 % (9.3-17.3); White Blood Count 12.6 T/CUMM (4-12)
[2017-05-22 11:19] LABS: Calcium 8.9 MG/DL (8.5-10.1); Magnesium 2.1 MG/DL (1.8-2.4); Osmolality,Calculated 280.3 MOS/KG (273-304); Potassium 4.3 MMOL/L (3.5-5.1)
--- NOTE | 2017-05-22 12:32 | Pulmonology Progress Note ---
Pulmonary - PN: Subj Interval history: Mr. Fischer is a 66-year-old white male who we saw in initial pulmonary consultation on 05/04/2017. At that time, our impressions were: #1: Acute altered mental status most likely secondary to #2 but consider other causes #2: Acute urinary tract infection #3: Ankylosing spondylitis with probable spinal stenosis. Anatomy and pain limited mobility. #4: Peripheral sensory neuropathy. His symptoms have gradually worsened over time. #5: Chronic venous stasis of the lower extremities. #6: Vitamin B deficiency. #7: Past history of tobacco abuse #8: COPD/asthma #9: Past history of high blood pressure #10: Hypothyroidism #11: Bilateral pleural effusions of unknown etiology #12: Dual-chamber cardiac pacemaker #13: History of marijuana use #14: History of compression fractures with chronic pain. Now under the care of Dr. Patel. #15: See past history 05/05/2017. Patient was seen today along with his . The patient is awake, alert, and oriented this morning. His theophylline was discontinued per the 's request yesterday. Of note, his theophylline level was 7.9. He has been seen in pain management consultation with Dr. Patel. His note has been reviewed. We appreciate his assistance. He will be out of town for the next few days, but upon his return we will begin tapering the patient's pain medications as per his note. Patient's lower extremities continue to be edematous. We will give Mr. Keith a one-time dose of IV Lasix. We will start Zaroxolyn 5 mg p.o. daily and KCl 20 mEq daily. Daily BMP/magnesium has been ordered. The patient's echocardiogram this admission as read by Dr. Vega showed an estimated EF of 60%, approximately 1+ mitral and aortic regurgitation , 1-2+ tricuspid regurgitation with a right ventricular systolic pressure of 60 mmHg plus the right atrial pressure suggesting severe pulmonary hypertension. This is a significant change from the echocardiogram done 04/12/[address] Nova which showed an EF estimated at 60%, grade 1 diastolic dysfunction, normal to mildly elevated filling pressures, mild aortic valve regurgitation, moderate ventricular hypertrophy with no demonstrable increase in right-sided pressure, and tricuspid regurgitation velocity suggesting a right ventricular systolic pressure of 23 mmHg plus the right atrial pressure. On chest x-ray today, the pleural effusion is improved. This patient has great difficulty laying flat given his ankylosing spondylitis, so we will begin diuresing him with his Zaroxolyn and see if his pleural effusion will resolve rather than proceed with CT PE protocol at this time. We will repeat a chest x-ray on Monday. Doppler venograms showed no evidence of dizziness thrombophlebitis. Abdominal ultrasound showed no ascites. Medications have been reviewed. Labs have been reviewed. White count is 5900 with a normal differential; H&H 10.7/33.6; platelet count 172,000; creatinine 0.40, BUN 8, electrolytes are normal; magnesium 2.5 Microbiology has been reviewed. Urine culture has grown E. coli. He is on Fortaz and Levaquin. Urine drug screen was positive for benzodiazepines and cannabinoids 05/08/2017 during the weekend the patient deteriorated. He developed a severe acidosis and a markedly elevated PCO2 and required movement to CCU along with intubation mechanical ventilation. He is still on the ventilator.His chest x- ray shows bibasilar infiltrates and some faint infiltrates in the right upper lung. Still has a small right pleural effusion. This is unexpected and I have to wonder about aspiration. We will plan to evaluate with fiberoptic bronchoscopy in the morning. His only positive cultures E. coli from his urine. ABGs have been ordered but are pending. Potassium is low at 3.0 and the patient will be placed on protocol. Natruretic peptide is 92. H&H is 10.8/ 31.9. White count is 8674.4 segs 7 lymphs and 16.1 monocytes. EKG shows no acute changes. At this point I am not entirely clear why the patient deteriorated so rapidly. 05/09/2017. Today's chest x-ray is better. Patient has cardiomegaly. He has bilateral alveolar and interstitial changes and he has a small to moderate size right pleural effusion. He is alert and oriented and can cooperate. Earlier today I evaluated patient with fiberoptic bronchoscopy. See the report. He had some mild erosive slightly friable bronchitis in the right lower lung that had the appearance of a recent pneumonia. This may be the etiology of his pleural effusion. The patient had only a small amount of sputum and both bronchial trees. I did not see any food or gastric content. Today the patient will go to stage II of his weaning protocol. The only positive culture is E. coli from the urine. ABGs on mechanical ventilation FiO2 40% shows a pH of 7.52 , PCO2 41.4, PO2 of 84.1 and a bicarb of 32.8. H&H is gradually dropping to 10.3/29.3. White count is 8276 segs and platelets are 141,000. Potassium is low at 3.2 and is being replaced. Theophylline level is 7.4. Last night the patient had atrial fib that required Cardizem and amiodarone. The patient's most recent echocardiogram (05/04/2017) showed pulmonary artery pressure above 70 whereas a month or so ago his pulmonary artery pressures were normal. We will repeat this today. Cardiology is seeing the patient in the past and placed cardiac pacemaker. Will last for follow-up evaluation. Also we have asked that his magnesium be checked. 05/10/2017. Patient's on stage III of the weaning protocol. Because of his anatomy chest x-ray is difficult to interpret. He has old pleural scarring on the right where he has had a previous pleural stripping. He has persistent pleural effusion on the right. Etiology of this is undetermined. His echocardiogram does not support congestive heart failure. He has no ascites on ultrasound of the abdomen. I discussed the possibility of thoracentesis by interventional radiologist with the and she is agreeable. We should send pleural fluid specimens for cytology, H&H, white blood cell count with differential, total protein, SGOT, LDH, Gram stain with bacterial culture, AFB stains and cultures. 05/15/2017. Patient is alert and oriented. His chest x-ray is better. His ABGs better. His lab is stable. He has been extubated today. Follow-up ABGs are pending. Findings and intentions were discussed with the patient's . Tuan Philip nurse practitioner was present 05/18/2017. Patient was bronchoscoped yesterday morning did well and suddenly developed a respiratory arrest followed by a short period of asystole on the night of 05/17/2017. He was intubated and I did an emergency bronchoscopy. His problem is retention of secretions were much more than I expected. This is slightly complicated by gastroesophageal reflux. Patient is going to need a trach. His is agreeable. ENT consultation is pending. Chest x-ray is stable today and ABGs are stable. He has has woken up and is been wide awake. 05/20/2017. On 05/19/2017 the patient had a trach placed. Dr. moreira's operative note is been reviewed. This was a long trach and ended 1-2 cm proximal to the carolyn. On the patient's chest x-ray he is flexed forward and the distal trachea appears to abut against the carolyn. I suspect this is why we are having problem passing the suction tube beyond the end of the trach. Methicillin-resistant staph aureus was grown from the patient's bronchoalveolar lavage is on 05/17/2017. ABGs on FiO2 of 50% mechanical ventilation show pH 7.312, PCO2 50 four-point, PO2 122 and a bicarb of 25 potassium is low normal at 3.5 H&H is stable. White count is stable. Vancomycin trough is 18.8. This is being managed by pharmacology 05/21/2017. ENT note is reviewed. Looks like to me on chest x-ray the tip of the patient's trach tube abuts against the carolyn and I suspect this is why cannot be suctioned. I have not bronchoscoped the patient. I will probably need to bronchoscope him soon for retention of secretions. His chest x-ray however is better pleural effusion on the right is improved and the atelectasis at the bases has improved. Oxygenation is adequate patient does have some hypercarbia. Electrolytes are normal. Creatinine 0.2 BUN is 8. CBC is stable. Vancomycin trough level is 21.5. Pharmacology is managing and adjusting this. Last bronchoscopy specimens from 05/17/2017 are growing methicillin-resistant staph aureus. 05/22/2017. Hopefully Dr. moreira will be back tomorrow. The trachea is not functioning well. By the x-ray of appearance it looks like it abuts against the carolyn. This is exacerbated by the patient's thoracic kyphosis. When we straighten him up and helps a little but he still cannot be suction. He was scoped by ENT extrusion press operator this weekend. His note is not tell me what was wrong. The patient is beginning to get bibasilar atelectasis secondary to sputum retention. His oxygenation is acceptable at this time. Talked to his this morning. She is talking about taking him home to hospice. I told her I think we can get trach to function better than it is now and that we can do whatever she likes but probably should consider [facility] long-term acute care. I have asked the staff to feed the patient and hold his feedings at about 3:00 tonight and later on check his stomach for residual. ABGs on mechanical ventilation FiO2 50% shows a pH 7.246, PCO2 of 57.5, PO2 of 198 and a bicarb of 22.5. Electrolytes are normal. Creatinine is 0.3 BUNs 10 CBC is stable. Bronchoalveolar lavages from 05/19/2017 are growing methicillin-resistant staph Exam (Progress Note) - Constitutional Vitals: Period Temp Pulse Resp BP Sys/Ivey Pulse Ox Last 24 Hr 5 F-98.0 F 83-105 18-28 118-166/66-83 88-99 Exam: Neurologic. . Sedated Chest. Loose large airway congestion Heart no gallop Abdomen is obese, but nontender and nondistended; bowel sounds are positive 4 Extremities with nothing to suggest acute deep venous thrombophlebitis; bilateral pedal and pretibial edema; chronic venous stasis changes Neck. Also normal curvature secondary to ankylosing spondylitis. Musculoskeletal. Cervical thoracic and lumbar changes of ankylosing spondylitis Lymphatics. No submandibular cervical supraclavicular or epitrochlear adenopathy. The remainder the exam is noncontributory Plan. 05/08/2007 1. Fiberoptic bronchoscopy in the morning 2. Mechanical ventilation weaning protocol and physical therapy protocol 3. See today's note, above 05/09/2017. 1. Fiberoptic bronchoscopy showed no evidence of aspiration see report 2. Stage II to weaning protocol 3. Repeat echocardiogram with attention to recent onset of pulmonary hypertension 4. Replace potassium 5. Check magnesium 6. Daily chest x-ray ABGs and lab 7. Watch slow decline of H&H 8. Check bronchoscopy specimens 9. Cardiology consult 05/10/2017. 1. See today's note, above 2. Appreciate cardiology consultation 3. Fiberoptic bronchoscopy in the morning 4. Consult interventional radiologist for thoracentesis. Because of the patient's ankylosing spondylitis and anatomy of this will be difficult. See today's note above concerning studies when needed. This was discussed with the and she is agreeable 05/15/2017. 1. See today's note, above 2. Extubated 05/15/2017. Follow-up ABGs pending 3. Follow chest x-ray, ABGs and lab. 05/18/2017. 1. See my note above. 2. Intubated on the night of 05/17/2017. 3. ENT consultation for tracheostomy. 05/20/2017. 1. See my note, above. 2. Distal trachea appears to abut the carolyn 3. Weaning protocol. 4. Sputum's are still positive for methicillin-resistant staph aureus. Continue vancomycin 05/21/2017. 1. See my note from 06-04 and 05/21/2017. Suspected will have to adjust endotracheal tube. 2. Continue present regimen. 05/22/2017. 1. See my note above. 2. Dr. Jose babcock, ENT to reevaluate trach. On x-ray it appears to be too long and appears to abut against the trachea 3. Will need fiberoptic bronchoscopy tomorrow. Bibasilar atelectasis. 4. Discuss with . She needs to really discuss with bilingual social worker as the patient is status has changed since her last Exam (Progress Note) - Constitutional Vitals: Period Temp Pulse Resp BP Sys/Ivey Pulse Ox Last 24 Hr 97.0 F-98.0 F 86-99 14-28 79-153/49-94 96-100 Results - Labs CBC & BMP: 05/22/17 10:38 05/22/17 10:38 Specialty Discharge - Follow Up or Referrals Follow up with: Bala Ramírez MD [Primary Care Provider] - 1 Week (Needs appt with Dr. Wilson office for pt to be seen within 1 week of discharge date.)
[2017-05-22] MEDS: PHENYLEPHRINE DRIP 40 MG/250 ML PREMIX IV SCH (13:18)
--- NOTE | 2017-05-22 13:24 | Progress Note ---
Assessment and Plan (1) Ventilator dependent Status: Acute Assessment and plan: Remains stable. has made pt DNR. May need replacement of trach in OR as resistance to suctioning still intermittent. would allow stoma to mature until later this week, and use Eschman bougie to change trach in OR and use GlideScope Current Visit: Yes Family Medicine PN Sub Interval history: CTSP with suctioning pproblems and positional volume flow problems. procedue: Bougie passed through trach tube, trach tube advanced from 10 to 12. Excellent suctioning and airflows. O2 Sat above 95. Both lungs ventilating equallly. Will check ABGs. Suspect this is all that needed to be done. Bougie most helpful. Exam (Progress Note) - Constitutional Vitals: Period Temp Pulse Resp BP Sys/Ivey Pulse Ox Last 24 Hr 97.0 F-98.0 F 86-106 12-28 79-153/49-95 96-100 Results - Labs CBC & BMP: 05/22/17 10:38 05/22/17 10:38 Quality Measures - Stroke Symptom Onset Unknown: No Specialty Discharge - Follow Up or Referrals Follow up with: Bala Ramírez MD [Primary Care Provider] - 1 Week (Needs appt with Dr. Wilson office for pt to be seen within 1 week of discharge date.)
[2017-05-22 13:28] LABS: ABG Base Excess -3.5 MMOL/L (-2.5-2.5); ABG HCO3 21.5 MMOL/L (20-26); ABG Oxygen Saturation 99.1 % (95-100); ABG PCO2 53.9 MM HG (35-48); ABG PH 7.259 (7.35-7.45); ABG TCO2 22.4 MMOL/L (23-27); Allen Test Positive; Pt O2 Delivery Device Ventilator
[2017-05-22] MEDS: FLUCONAZOLE INJ 200 MG in PREMIX 1 EACH IV SCH (13:35)
[2017-05-22] MEDS: CLORAZEPATE 3.75 MG TABLET PO SCH (20:27)
[2017-05-23] MEDS: INSULIN LISPRO 100 UNIT/ML SUBCUT SCH ×4 (01:05→18:31)
[2017-05-23] MEDS: ALBUTEROL/IPRATROPIUM 3 ML NEB RESP TX SCH ×4 (01:20→18:57)
[2017-05-23] MEDS: PROPOFOL 1,000 MG/100 ML BOTTLE IV SCH ×3 (03:14→17:09)
[2017-05-23] MEDS: ERYTHROMYCIN INJ 250 MG in SODIUM CHLORIDE 0.9% 100 ML IV SCH (03:15)
[2017-05-23] MEDS: ENOXAPARIN 40 MG/0.4 ML SYRINGE SUBCUT SCH (03:15)
[2017-05-23 03:43] LABS: ABG Base Excess -0.3 MMOL/L (-2.5-2.5); ABG HCO3 24.2 MMOL/L (20-26); ABG PCO2 51.6 MM HG (35-48); ABG PH 7.317 (7.35-7.45); ABG TCO2 24.3 MMOL/L (23-27); Allen Test Positive; Pt O2 Delivery Device Ventilator
[2017-05-23] MEDS: VANCOMYCIN INJ 1,750 MG in SODIUM CHLORIDE 0.9% 500 ML IV SCH (04:13)
[2017-05-23] MEDS: PHENYLEPHRINE DRIP 40 MG/250 ML PREMIX IV SCH ×2 (05:00→20:53)
[2017-05-23] MEDS: DILTIAZEM INJ 100 MG in SODIUM CHLORIDE 0.9% 100 ML IV SCH ×2 (05:00→20:53)
[2017-05-23] MEDS: LEVOTHYROXINE 100 MCG TABLET PO SCH (06:04)
[2017-05-23 06:07] LABS: Basophils # 0.1 10*3/uL (0.0-0.2); Basophils % 0.8 % (0.0-0.8); Eosinophils # 0.2 10*3/uL (0.0-0.87); Eosinophils % 1.7 % (0.00-10.9); Hematocrit 29.7 VOL% (42.0-52.0); Hemoglobin 9.7 GM/DL (14.0-18.0); Immature Granulocytes % 2.6 %; Immature Granulocytes Absolute 0.24 #; Lymphocytes # 0.8 10*3/uL (1.4-4.0); Lymphocytes % 8.5 % (21.2-54.2); Mean Corpuscular HGB Conc 32.7 GM/DL (32-36); Mean Corpuscular Hemoglobin 32 PG (27-34); Mean Corpuscular Volume 99.3 FL (87-102); Mean Platelet Volume 12.2 FL (9.6-12.0); Monocytes # 1.1 10*3/uL (0.11-0.8); Monocytes % 12.4 % (1.7-12.7); Neutrophils # 6.8 10*3/uL (1.4-7.4); Platelet Count 305 T/CUMM (130-400); Red Blood Count 2.99 MC/CUMM (3.8-5.5); Red Cell Distribution Width 13.7 % (9.3-17.3); White Blood Count 9.2 T/CUMM (4-12)
[2017-05-23 07:54] LABS: Calcium 8.5 MG/DL (8.5-10.1); Magnesium 2.1 MG/DL (1.8-2.4); Potassium 4.5 MMOL/L (3.5-5.1)
--- NOTE | 2017-05-23 08:00 | XRay Report ---
Portable chest May 23, 2017 at 0320 hours Indication: Respiratory failure. Comparison images from previous day at 0311 hours Findings: Supporting tubes, lines and devices are unchanged in position. Underlying interstitial edema pattern with bilateral pleural effusions and basilar atelectasis unchanged. Impression: No significant change in the pulmonary edema pattern or bilateral pleural effusions PROCEDURE INTERPRETED AT [facility] DEPARTMENT OF RADIOLOGY Final Report Signed by: Bladimir Charles
[2017-05-23] MEDS: miSOPROStol 200 MCG TABLET PO SCH (09:02)
[2017-05-23] MEDS: THIAMINE 100 MG TABLET PO SCH (09:02)
[2017-05-23] MEDS: IMIPRAMINE 25 MG TABLET PO SCH (09:02)
[2017-05-23] MEDS: BISOPROLOL 5 MG TABLET PO SCH (09:02)
[2017-05-23] MEDS: MULTIVITAMIN (CENTRUM) TABLET PO SCH (09:02)
[2017-05-23] MEDS: POTASSIUM CHLORIDE 20 MEQ PACK PO SCH (09:02)
[2017-05-23] MEDS: PANTOPRAZOLE 40 MG TABLET PO SCH (09:03)
[2017-05-23] MEDS: FOLIC ACID 1 MG TABLET PO SCH (09:03)
[2017-05-23] MEDS: ASCORBIC ACID 500 MG TABLET PO SCH (09:03)
[2017-05-23] MEDS: SPIRONOLACTONE 25 MG TABLET PO SCH ×2 (09:03→20:53)
[2017-05-23] MEDS: POLYETHYLENE GLYCOL POWDER 17 GM PACK PO SCH (09:04)
[2017-05-23] MEDS: LIDOCAINE 5% PATCH TRANSDERM SCH (09:16)
[2017-05-23] MEDS: FUROSEMIDE 20 MG/2 ML VIAL IV SCH (09:17)
[2017-05-23] MEDS: LINACLOTIDE 145 MCG CAPSULE PO SCH (09:17)
[2017-05-23] MEDS: MUPIROCIN 2% OINT 22 GM TUBE TOP SCH ×2 (09:17→20:54)
--- NOTE | 2017-05-23 10:03 | Hospitalist Progress Note ---
Assessment and Plan (1) UTI (urinary tract infection) Status: Acute Assessment and plan: Impression: 1. Urinary tract infection with sepsis 2. COPD 3. Acute respiratory failure, now with tracheostomy, and MRSA in sputum. Plan: Reculture urine. We may be able to discontinue the ceftazidime. Pulmonary is managing the ventilator and associated issues. This note was completed using [employer] voice recognition software. There may be leadership program intern errors as a result. Current Visit: Yes Hospitalist: Subjective Interval history: Follow-up UTI with sepsis and respiratory failure. The patient is still having difficulty with suctioning, and his tracheostomy tube was apparently repositioned yesterday. He is currently still ventilated, and is growing MRSA in his secretions. E. coli has grown in the urine, and he has been on Fortaz for over 2 weeks now. Exam - Constitutional Vitals: Period Temp Pulse Resp BP Sys/Ivey Pulse Ox Last 24 Hr 97.0 F-98.0 F 92-106 14-29 101-144/52-95 98-100 Vital signs are noted above. Heart is regular with no murmur. He has some rhonchi in the chest. He is sedated on the ventilator. Results - Labs CBC & BMP: 05/23/17 04:31 05/23/17 07:12 Lab Results: I have reviewed the past 24 hour labs Quality Measures - Stroke Symptom Onset Unknown: No Specialty Discharge - Follow Up or Referrals Follow up with: Bala Ramírez MD [Primary Care Provider] - 1 Week (Needs appt with Dr. Wilson office for pt to be seen within 1 week of discharge date.)
--- NOTE | 2017-05-23 10:50 | Progress Note ---
Assessment and Plan - Time spent with patient Time spent with patient: Less than 30 minutes (1) Ventilator dependent Status: Acute Assessment and plan: I recommend tracheostomy tube placement risks and benefits were discussed and the desires to proceed with surgery will be scheduled for tomorrow. 05/23/2017 Bivona [address] and patent tracheoscopy performed at bedside reveals that the trach is in place and currently no obstruction as the patient had had some obstructive episodes throughout the weekend that resolved with repositioning of the trach. I feel the patient is okay to go to [facility] and will continue to follow him and because of his severe cervical kyphosis we will probably continue to deal somewhat with different positioning and trach difficulties but we should be able to progress as needed. Current Visit: Yes (2) Altered mental status Status: Resolved Current Visit: No Qualifiers: Altered mental status type: disorientation Qualified Code(s): R41.0 - Disorientation, unspecified (3) Dyspnea Status: Acute Current Visit: Yes (4) Hypoxia Status: Acute Current Visit: Yes (5) Respiratory failure Status: Chronic Current Visit: Yes Family Medicine PN Sub Interval history: Status post tracheostomy last Monday multiple episodes of difficulty ventilation with improvement with proper trach readjustment and positioning ENT is asked to evaluate to determine whether or not patient is safe to move to [facility]. He has had no difficulty ventilation after the advancement of the trach [facility]. Additionally the patient has responsive and is not communicating any gross pain or difficulty he is on assisted ventilations currently Exam (Progress Note) - Constitutional Vitals: Period Temp Pulse Resp BP Sys/Ivey Pulse Ox Last 24 Hr 97.0 F-98.0 F 92-105 14-29 101-134/52-87 98-100 General appearance: normal weight, no acute distress (Currently somewhat sedated and on the ventilator) - Head Head exam: Present: normal inspection, normocephalic - ENT ENT exam: Present: normal exam, normal external ear exam, normal oropharynx, other (Trach in place and patent seated at the 12 cm jones on a Bivona 8) - Neck Neck exam: Present: other (Marked kyphosis in speaking with the family he has a history of ankylosing spondylitis, bedside tracheoscopy performed in the Bivona [address] and because of the severe kyphosis and is risk and has repeatedly caused ventilatory concerns the advancing of the 2 cm recently has helped her to stay in place and prevent any obstructions overall the trach is safe and there is no evidence of obstruction or problem.) - Respiratory Respiratory exam: Present: other (No gross shortness of breath or difficulty breathing additionally he is on assisted ventilations) - GI/Abdominal GI/Abdominal exam: Present: soft (Somewhat distended though this seems to be his baseline I would defer to his hospitalist in this regard) - Neurological Exam Neurological exam: Present: other (Patient is somewhat alert but overall sedated and on the ventilator unable to thoroughly evaluate) - Psychiatric Psychiatric exam: Present: other - Skin Skin exam: Present: normal color, warm Results - Labs CBC & BMP: 05/23/17 04:31 05/23/17 07:12 Lab Results: I have reviewed the past 24 hour labs Quality Measures - Stroke Symptom Onset Unknown: No Specialty Discharge - Follow Up or Referrals Follow up with: Bala Ramírez MD [Primary Care Provider] - 1 Week (Needs appt with Dr. Wilson office for pt to be seen within 1 week of discharge date.)
--- NOTE | 2017-05-23 11:26 | Post Interventional Procedure ---
Pre-op diagnosis: UTI with sepsis. IV access needed for antibiotic therapy Post-op diagnosis: same Procedure: Right upper extremity PICC line. Ultrasound guidance for vascular access Radiologist: Lea Sawant Anesthesia: local Specimens: none sent Estimated blood loss: minimal (less than 3 ml) Complications: none Condition: stable Description/Findings: A formal timeout was performed. Sonographic evaluation of the right upper extremity demonstrates patent and compressible basilic vein. The upper arm was prepped and draped in sterile fashion. 3 cc 1% lidocaine was administered subcutaneously. Maximum sterile barrier technique was utilized. Under sonographic guidance, a micropuncture needle was advanced into the vein by this radiologist. A captured sonographic image documents the position of the needle. Needle was exchanged over a wire for a peel-away sheath. A dual lumen power PICC, cut to 45 cm, was advanced over the wire until the tip was at the RA -SVC junction. The position of the catheter was confirmed with fluoroscopic guidance and an image stored in PACS. The wire and sheath were removed. Both ports of the PICC were aspirated and flushed with heparinized saline. The device was secured with a StatLock. Fluoroscopy: 1.2 minutes. Fluoroscopic images captured and archived: 1 Impression: PICC line ready for immediate use. Routine catheter care Assessment and Plan - Time spent with patient Time spent with patient: Less than 30 minutes
--- NOTE | 2017-05-23 14:08 | Event Note ---
In hospital diagnostic and therapeutic fiberoptic bronchoscopy. Bilateral bronchoalveolar lavages were sent for Gram stain, bacterial cultures, fungal stains and cultures. This is a 66-year-old white male with a trach and severe COPD with an ineffective cough retained pulmonary secretions along with bibasilar atelectasis. His most recent sputum's are groans staph aureus, methicillin resistant. He will be recultured today. For all these reasons the patient is evaluated with fiberoptic bronchoscopy. The trach and trach site looks fine position and the trach was adjusted 1-1/2 cm distally. The trachea look fine and the carolyn was sharp. Right mainstem bronchus was full of thick tenacious secretions. These extended into the right upper lung the right middle lung in the right lower lung. All 3 lobes were lavaged until clear. Patient has markedly collapsible large and small airways. The worse findings are in the right lower lung. The left mainstem bronchus was full of thick tenacious secretions which extended into the left upper lung, especially the lingula and also extending into the left lower lung. There are scattered areas of erosive friable bronchitis in the left lower lung. The mucosa so was taken and the upper lung and the lower lung. There was similar mucosal findings in the right lung. Large and small airways of the left lung were markedly collapsible. All compatible with significant underlying COPD The patient tolerated procedure well. Post bronchoscopy he was able to tolerate a larger tidal volume with less resistance in the lower peak pressure Impression. 1. Trach. 2. Retained secretions that could not be suctioned 3. Ineffective cough. Exacerbated by severe COPD and ankylosing spondylitis with deformity and debility 4. Severe COPD with markedly collapsible large and small airways. 5. Pulmonary infection with methicillin-resistant staph aureus. Plan. 1. Follow-up chest x-ray 2. Check bronchoscopy specimens.
--- NOTE | 2017-05-23 14:12 | Pulmonology Progress Note ---
Pulmonary - PN: Subj Interval history: Mr. Fischer is a 66-year-old white male who we saw in initial pulmonary consultation on 05/04/2017. At that time, our impressions were: #1: Acute altered mental status most likely secondary to #2 but consider other causes #2: Acute urinary tract infection #3: Ankylosing spondylitis with probable spinal stenosis. Anatomy and pain limited mobility. #4: Peripheral sensory neuropathy. His symptoms have gradually worsened over time. #5: Chronic venous stasis of the lower extremities. #6: Vitamin B deficiency. #7: Past history of tobacco abuse #8: COPD/asthma #9: Past history of high blood pressure #10: Hypothyroidism #11: Bilateral pleural effusions of unknown etiology #12: Dual-chamber cardiac pacemaker #13: History of marijuana use #14: History of compression fractures with chronic pain. Now under the care of Dr. Patel. #15: See past history 05/05/2017. Patient was seen today along with his . The patient is awake, alert, and oriented this morning. His theophylline was discontinued per the 's request yesterday. Of note, his theophylline level was 7.9. He has been seen in pain management consultation with Dr. Patel. His note has been reviewed. We appreciate his assistance. He will be out of town for the next few days, but upon his return we will begin tapering the patient's pain medications as per his note. Patient's lower extremities continue to be edematous. We will give Mr. Keith a one-time dose of IV Lasix. We will start Zaroxolyn 5 mg p.o. daily and KCl 20 mEq daily. Daily BMP/magnesium has been ordered. The patient's echocardiogram this admission as read by Dr. Vega showed an estimated EF of 60%, approximately 1+ mitral and aortic regurgitation , 1-2+ tricuspid regurgitation with a right ventricular systolic pressure of 60 mmHg plus the right atrial pressure suggesting severe pulmonary hypertension. This is a significant change from the echocardiogram done 04/12/[address] Nova which showed an EF estimated at 60%, grade 1 diastolic dysfunction, normal to mildly elevated filling pressures, mild aortic valve regurgitation, moderate ventricular hypertrophy with no demonstrable increase in right-sided pressure, and tricuspid regurgitation velocity suggesting a right ventricular systolic pressure of 23 mmHg plus the right atrial pressure. On chest x-ray today, the pleural effusion is improved. This patient has great difficulty laying flat given his ankylosing spondylitis, so we will begin diuresing him with his Zaroxolyn and see if his pleural effusion will resolve rather than proceed with CT PE protocol at this time. We will repeat a chest x-ray on Monday. Doppler venograms showed no evidence of dizziness thrombophlebitis. Abdominal ultrasound showed no ascites. Medications have been reviewed. Labs have been reviewed. White count is 5900 with a normal differential; H&H 10.7/33.6; platelet count 172,000; creatinine 0.40, BUN 8, electrolytes are normal; magnesium 2.5 Microbiology has been reviewed. Urine culture has grown E. coli. He is on Fortaz and Levaquin. Urine drug screen was positive for benzodiazepines and cannabinoids 05/08/2017 during the weekend the patient deteriorated. He developed a severe acidosis and a markedly elevated PCO2 and required movement to CCU along with intubation mechanical ventilation. He is still on the ventilator.His chest x- ray shows bibasilar infiltrates and some faint infiltrates in the right upper lung. Still has a small right pleural effusion. This is unexpected and I have to wonder about aspiration. We will plan to evaluate with fiberoptic bronchoscopy in the morning. His only positive cultures E. coli from his urine. ABGs have been ordered but are pending. Potassium is low at 3.0 and the patient will be placed on protocol. Natruretic peptide is 92. H&H is 10.8/ 31.9. White count is 8674.4 segs 7 lymphs and 16.1 monocytes. EKG shows no acute changes. At this point I am not entirely clear why the patient deteriorated so rapidly. 05/09/2017. Today's chest x-ray is better. Patient has cardiomegaly. He has bilateral alveolar and interstitial changes and he has a small to moderate size right pleural effusion. He is alert and oriented and can cooperate. Earlier today I evaluated patient with fiberoptic bronchoscopy. See the report. He had some mild erosive slightly friable bronchitis in the right lower lung that had the appearance of a recent pneumonia. This may be the etiology of his pleural effusion. The patient had only a small amount of sputum and both bronchial trees. I did not see any food or gastric content. Today the patient will go to stage II of his weaning protocol. The only positive culture is E. coli from the urine. ABGs on mechanical ventilation FiO2 40% shows a pH of 7.52 , PCO2 41.4, PO2 of 84.1 and a bicarb of 32.8. H&H is gradually dropping to 10.3/29.3. White count is 8276 segs and platelets are 141,000. Potassium is low at 3.2 and is being replaced. Theophylline level is 7.4. Last night the patient had atrial fib that required Cardizem and amiodarone. The patient's most recent echocardiogram (05/04/2017) showed pulmonary artery pressure above 70 whereas a month or so ago his pulmonary artery pressures were normal. We will repeat this today. Cardiology is seeing the patient in the past and placed cardiac pacemaker. Will last for follow-up evaluation. Also we have asked that his magnesium be checked. 05/10/2017. Patient's on stage III of the weaning protocol. Because of his anatomy chest x-ray is difficult to interpret. He has old pleural scarring on the right where he has had a previous pleural stripping. He has persistent pleural effusion on the right. Etiology of this is undetermined. His echocardiogram does not support congestive heart failure. He has no ascites on ultrasound of the abdomen. I discussed the possibility of thoracentesis by interventional radiologist with the and she is agreeable. We should send pleural fluid specimens for cytology, H&H, white blood cell count with differential, total protein, SGOT, LDH, Gram stain with bacterial culture, AFB stains and cultures. 05/15/2017. Patient is alert and oriented. His chest x-ray is better. His ABGs better. His lab is stable. He has been extubated today. Follow-up ABGs are pending. Findings and intentions were discussed with the patient's . Tuan Philip nurse practitioner was present 05/18/2017. Patient was bronchoscoped yesterday morning did well and suddenly developed a respiratory arrest followed by a short period of asystole on the night of 05/17/2017. He was intubated and I did an emergency bronchoscopy. His problem is retention of secretions were much more than I expected. This is slightly complicated by gastroesophageal reflux. Patient is going to need a trach. His is agreeable. ENT consultation is pending. Chest x-ray is stable today and ABGs are stable. He has has woken up and is been wide awake. 05/20/2017. On 05/19/2017 the patient had a trach placed. Dr. moreira's operative note is been reviewed. This was a long trach and ended 1-2 cm proximal to the carolyn. On the patient's chest x-ray he is flexed forward and the distal trachea appears to abut against the carolyn. I suspect this is why we are having problem passing the suction tube beyond the end of the trach. Methicillin-resistant staph aureus was grown from the patient's bronchoalveolar lavage is on 05/17/2017. ABGs on FiO2 of 50% mechanical ventilation show pH 7.312, PCO2 50 four-point, PO2 122 and a bicarb of 25 potassium is low normal at 3.5 H&H is stable. White count is stable. Vancomycin trough is 18.8. This is being managed by pharmacology 05/21/2017. ENT note is reviewed. Looks like to me on chest x-ray the tip of the patient's trach tube abuts against the carolyn and I suspect this is why cannot be suctioned. I have not bronchoscoped the patient. I will probably need to bronchoscope him soon for retention of secretions. His chest x-ray however is better pleural effusion on the right is improved and the atelectasis at the bases has improved. Oxygenation is adequate patient does have some hypercarbia. Electrolytes are normal. Creatinine 0.2 BUN is 8. CBC is stable. Vancomycin trough level is 21.5. Pharmacology is managing and adjusting this. Last bronchoscopy specimens from 05/17/2017 are growing methicillin-resistant staph aureus. 05/22/2017. Hopefully Dr. moreira will be back tomorrow. The trachea is not functioning well. By the x-ray of appearance it looks like it abuts against the carolyn. This is exacerbated by the patient's thoracic kyphosis. When we straighten him up and helps a little but he still cannot be suction. He was scoped by ENT field sales consultant this weekend. His note is not tell me what was wrong. The patient is beginning to get bibasilar atelectasis secondary to sputum retention. His oxygenation is acceptable at this time. Talked to his this morning. She is talking about taking him home to hospice. I told her I think we can get trach to function better than it is now and that we can do whatever she likes but probably should consider [facility] long-term acute care. I have asked the staff to feed the patient and hold his feedings at about 3:00 tonight and later on check his stomach for residual. ABGs on mechanical ventilation FiO2 50% shows a pH 7.246, PCO2 of 57.5, PO2 of 198 and a bicarb of 22.5. Electrolytes are normal. Creatinine is 0.3 BUNs 10 CBC is stable. Bronchoalveolar lavages from 05/19/2017 are growing methicillin-resistant staph 05/23/2017. This morning the patient had fiberoptic bronchoscopy. He had a good bit of retained secretions. He is previously grown methicillin-resistant staph aureus and he was recultured. His trach tube looks fine. A few ventilator adjustments have been made and the patient now tolerates tidal volume of 450 cc with a peak pressure less than 30. He does not leak any air around his trach. His chest x-ray shows bibasilar atelectasis. Pleural fluid is come under good control. ABGs on mechanical ventilation FiO2 50% shows a pH 7.32, PCO2 51.6, PO2 150 and a bicarb of 24.2 H&H is dropped to 9.7/29.7. White blood cell count is 9200 and platelets of 304,000. Vancomycin is being managed by pharmacology. If things continue on her present course this patient could be ready for long-term acute care before the end of the week. Exam (Progress Note) - Constitutional Vitals: Period Temp Pulse Resp BP Sys/Ivey Pulse Ox Last 24 Hr 5 F-98.0 F 83-105 18-28 118-166/66-83 88-99 Exam: Neurologic. . Sedated. Moves all fours. Chest. Loose large airway congestion Heart no gallop Abdomen is obese, but nontender and nondistended; bowel sounds are positive 4 Extremities with nothing to suggest acute deep venous thrombophlebitis; bilateral pedal and pretibial edema; chronic venous stasis changes Neck. Also normal curvature secondary to ankylosing spondylitis. Musculoskeletal. Cervical thoracic and lumbar changes of ankylosing spondylitis Lymphatics. No submandibular cervical supraclavicular or epitrochlear adenopathy. The remainder the exam is noncontributory Plan. 05/08/2007 1. Fiberoptic bronchoscopy in the morning 2. Mechanical ventilation weaning protocol and physical therapy protocol 3. See today's note, above 05/09/2017. 1. Fiberoptic bronchoscopy showed no evidence of aspiration see report 2. Stage II to weaning protocol 3. Repeat echocardiogram with attention to recent onset of pulmonary hypertension 4. Replace potassium 5. Check magnesium 6. Daily chest x-ray ABGs and lab 7. Watch slow decline of H&H 8. Check bronchoscopy specimens 9. Cardiology consult 05/10/2017. 1. See today's note, above 2. Appreciate cardiology consultation 3. Fiberoptic bronchoscopy in the morning 4. Consult interventional radiologist for thoracentesis. Because of the patient's ankylosing spondylitis and anatomy of this will be difficult. See today's note above concerning studies when needed. This was discussed with the and she is agreeable 05/15/2017. 1. See today's note, above 2. Extubated 05/15/2017. Follow-up ABGs pending 3. Follow chest x-ray, ABGs and lab. 05/18/2017. 1. See my note above. 2. Intubated on the night of 05/17/2017. 3. ENT consultation for tracheostomy. 05/20/2017. 1. See my note, above. 2. Distal trachea appears to abut the carolyn 3. Weaning protocol. 4. Sputum's are still positive for methicillin-resistant staph aureus. Continue vancomycin 05/21/2017. 1. See my note from 06-04 and 05/21/2017. Suspected will have to adjust endotracheal tube. 2. Continue present regimen. 05/22/2017. 1. See my note above. 2. Dr. Jsoe babcock, ENT to reevaluate trach. On x-ray it appears to be too long and appears to abut against the trachea 3. Will need fiberoptic bronchoscopy tomorrow. Bibasilar atelectasis. 4. Discuss with . She needs to really discuss with psych social worker as the patient is status has changed since her last 05/23/2017. 1. See today's note, above 2. Fiberoptic bronchoscopy done 05/23/2017. See report 3. Ventilator adjustments have been made and these appear to be working fine. 4. Trach is working fine. 5. We will look into the possibility of long-term acute care near the end of the week. 6. Continue daily chest x-ray ABGs and lab Exam (Progress Note) - Constitutional Vitals: Period Temp Pulse Resp BP Sys/Ivey Pulse Ox Last 24 Hr 97.0 F-98.0 F 90-106 11-30 101-137/52-80 95-100 Results - Labs CBC & BMP: 05/23/17 04:31 05/23/17 07:12 Specialty Discharge - Follow Up or Referrals Follow up with: Bala Ramírez MD [Primary Care Provider] - 1 Week (Needs appt with Dr. Wilson office for pt to be seen within 1 week of discharge date.)
[2017-05-23] MEDS: FLUCONAZOLE INJ 200 MG in PREMIX 1 EACH IV SCH (14:19)
[2017-05-23] MEDS: MORPHINE 2 MG/1 ML SYRINGE IV PRN (20:53)
[2017-05-23] MEDS: CLORAZEPATE 3.75 MG TABLET PO SCH (20:53)
[2017-05-23] MEDS: ZINC OXIDE PASTE 113 GM TUBE TOP SCH (20:54)
[2017-05-24] MEDS: INSULIN LISPRO 100 UNIT/ML SUBCUT SCH ×4 (00:19→18:23)
[2017-05-24] MEDS: ALBUTEROL/IPRATROPIUM 3 ML NEB RESP TX SCH ×4 (00:49→18:54)
[2017-05-24] MEDS: PROPOFOL 1,000 MG/100 ML BOTTLE IV SCH ×2 (03:33→23:46)
[2017-05-24] MEDS: VANCOMYCIN INJ 1,750 MG in SODIUM CHLORIDE 0.9% 500 ML IV SCH ×2 (03:34→21:33)
[2017-05-24] MEDS: ENOXAPARIN 40 MG/0.4 ML SYRINGE SUBCUT SCH (03:34)
[2017-05-24 05:12] LABS: ABG Base Excess 2.7 MMOL/L (-2.5-2.5); ABG HCO3 28.9 MMOL/L (20-26); ABG Oxygen Saturation 98.4 % (95-100); ABG PCO2 53.2 MM HG (35-48); ABG PH 7.353 (7.35-7.45); ABG PO2 145.8 MM HG (80-95); ABG TCO2 30.5 MMOL/L (23-27); Allen Test Positive; Pt O2 Delivery Device Ventilator
[2017-05-24] MEDS: LEVOTHYROXINE 100 MCG TABLET PO SCH (06:17)
--- NOTE | 2017-05-24 07:04 | XRay Report ---
Exam: XR chest 1V portable Date: 05/24/2017 4:00 AM Indication: Follow-up ventilator respiratory failure Comparison: 05/23/2017 Technical: AP chest Findings: Right-sided PICC line left-sided cardiac pacing device with atrial ventricular leads tracheostomy tube are again noted. Bilateral basal effusions and alveolar edema shunt vascularity present. Previous vertebral plasty in the mid thoracic spine. No pneumothorax. Oxygen tubing external cardiac leads superimpose exam. Impression: 1. Stable appearance of life support tubing 2. Persistent cardiomegaly and low volume effusions and alveolar edema shunt vascularity unchanged from prior exam PROCEDURE INTERPRETED AT [facility] DEPARTMENT OF RADIOLOGY Final Report Signed by: Dr. Bala Delatorre
[2017-05-24] MEDS: LIDOCAINE 5% PATCH TRANSDERM SCH (08:50)
[2017-05-24] MEDS: BISOPROLOL 5 MG TABLET PO SCH (08:50)
[2017-05-24] MEDS: miSOPROStol 200 MCG TABLET PO SCH (08:50)
[2017-05-24] MEDS: MULTIVITAMIN (CENTRUM) TABLET PO SCH (08:50)
[2017-05-24] MEDS: FOLIC ACID 1 MG TABLET PO SCH (08:51)
[2017-05-24] MEDS: SPIRONOLACTONE 25 MG TABLET PO SCH ×2 (08:51→20:54)
[2017-05-24] MEDS: THIAMINE 100 MG TABLET PO SCH (08:51)
[2017-05-24] MEDS: POTASSIUM CHLORIDE 20 MEQ PACK PO SCH (08:51)
[2017-05-24] MEDS: IMIPRAMINE 25 MG TABLET PO SCH (08:51)
[2017-05-24] MEDS: FUROSEMIDE 20 MG/2 ML VIAL IV SCH (08:52)
[2017-05-24] MEDS: POLYETHYLENE GLYCOL POWDER 17 GM PACK PO SCH (08:52)
[2017-05-24] MEDS: MUPIROCIN 2% OINT 22 GM TUBE TOP SCH ×2 (08:52→20:54)
[2017-05-24] MEDS: ZINC OXIDE PASTE 113 GM TUBE TOP SCH ×2 (08:53→20:54)
[2017-05-24] MEDS: LINACLOTIDE 145 MCG CAPSULE PO SCH (08:54)
[2017-05-24] MEDS: ASCORBIC ACID 500 MG TABLET PO SCH (09:06)
[2017-05-24] MEDS: PANTOPRAZOLE 40 MG TABLET PO SCH (09:06)
--- NOTE | 2017-05-24 09:06 | Hospitalist Progress Note ---
Assessment and Plan (1) UTI (urinary tract infection) Status: Acute Assessment and plan: Impression: 1. Urinary tract infection with sepsis. I think this has resolved 2. COPD 3. Acute respiratory failure, now with tracheostomy, and MRSA in sputum. Plan: Discontinue ceftazidime. Continue ventilator weaning trials. This note was completed using [employer] voice recognition software. There may be terrazzo mechanic errors as a result. Current Visit: Yes Hospitalist: Subjective Interval history: Follow-up UTI with sepsis, acute respiratory failure, COPD. The patient is off vasopressors and sedation now. He had a breathing trial yesterday, and did fairly well. Tracheostomy appears to be functioning well. He also underwent another bronchoscopy yesterday. He has had 2 weeks of IV antibiotics for the UTI. I think we can discontinue the ceftaz edema at this time. It appears that we are planning for LTAC transfer later on in the week. Exam - Constitutional Vitals: Period Temp Pulse Resp BP Sys/Ivey Pulse Ox Last 24 Hr 98.0 F-98.5 F 80-102 11-30 107-143/57-80 95-100 Vital signs are noted above. Heart is irregular on the monitor. I do not hear murmur. He has a few rhonchi in the chest. Abdomen is soft with no tenderness. He is awake and looks around. Results - Labs CBC & BMP: 05/23/17 04:31 05/23/17 07:12 Lab Results: I have reviewed the past 24 hour labs Quality Measures - Stroke Symptom Onset Unknown: No Specialty Discharge - Follow Up or Referrals Follow up with: Bala Ramírez MD [Primary Care Provider] - 1 Week (Needs appt with Dr. Wilson office for pt to be seen within 1 week of discharge date.)
--- NOTE | 2017-05-24 11:23 | Pulmonology Progress Note ---
Pulmonary - PN: Subj Interval history: Mr. Fischer is a 66-year-old white male who we saw in initial pulmonary consultation on 05/04/2017. At that time, our impressions were: #1: Acute altered mental status most likely secondary to #2 but consider other causes #2: Acute urinary tract infection #3: Ankylosing spondylitis with probable spinal stenosis. Anatomy and pain limited mobility. #4: Peripheral sensory neuropathy. His symptoms have gradually worsened over time. #5: Chronic venous stasis of the lower extremities. #6: Vitamin B deficiency. #7: Past history of tobacco abuse #8: COPD/asthma #9: Past history of high blood pressure #10: Hypothyroidism #11: Bilateral pleural effusions of unknown etiology #12: Dual-chamber cardiac pacemaker #13: History of marijuana use #14: History of compression fractures with chronic pain. Now under the care of Dr. Patel. #15: See past history 05/05/2017. Patient was seen today along with his . The patient is awake, alert, and oriented this morning. His theophylline was discontinued per the 's request yesterday. Of note, his theophylline level was 7.9. He has been seen in pain management consultation with Dr. Patel. His note has been reviewed. We appreciate his assistance. He will be out of town for the next few days, but upon his return we will begin tapering the patient's pain medications as per his note. Patient's lower extremities continue to be edematous. We will give Mr. Keith a one-time dose of IV Lasix. We will start Zaroxolyn 5 mg p.o. daily and KCl 20 mEq daily. Daily BMP/magnesium has been ordered. The patient's echocardiogram this admission as read by Dr. Vega showed an estimated EF of 60%, approximately 1+ mitral and aortic regurgitation , 1-2+ tricuspid regurgitation with a right ventricular systolic pressure of 60 mmHg plus the right atrial pressure suggesting severe pulmonary hypertension. This is a significant change from the echocardiogram done 04/12/[address] Nova which showed an EF estimated at 60%, grade 1 diastolic dysfunction, normal to mildly elevated filling pressures, mild aortic valve regurgitation, moderate ventricular hypertrophy with no demonstrable increase in right-sided pressure, and tricuspid regurgitation velocity suggesting a right ventricular systolic pressure of 23 mmHg plus the right atrial pressure. On chest x-ray today, the pleural effusion is improved. This patient has great difficulty laying flat given his ankylosing spondylitis, so we will begin diuresing him with his Zaroxolyn and see if his pleural effusion will resolve rather than proceed with CT PE protocol at this time. We will repeat a chest x-ray on Monday. Doppler venograms showed no evidence of dizziness thrombophlebitis. Abdominal ultrasound showed no ascites. Medications have been reviewed. Labs have been reviewed. White count is 5900 with a normal differential; H&H 10.7/33.6; platelet count 172,000; creatinine 0.40, BUN 8, electrolytes are normal; magnesium 2.5 Microbiology has been reviewed. Urine culture has grown E. coli. He is on Fortaz and Levaquin. Urine drug screen was positive for benzodiazepines and cannabinoids 05/08/2017 during the weekend the patient deteriorated. He developed a severe acidosis and a markedly elevated PCO2 and required movement to CCU along with intubation mechanical ventilation. He is still on the ventilator.His chest x- ray shows bibasilar infiltrates and some faint infiltrates in the right upper lung. Still has a small right pleural effusion. This is unexpected and I have to wonder about aspiration. We will plan to evaluate with fiberoptic bronchoscopy in the morning. His only positive cultures E. coli from his urine. ABGs have been ordered but are pending. Potassium is low at 3.0 and the patient will be placed on protocol. Natruretic peptide is 92. H&H is 10.8/ 31.9. White count is 8674.4 segs 7 lymphs and 16.1 monocytes. EKG shows no acute changes. At this point I am not entirely clear why the patient deteriorated so rapidly. 05/09/2017. Today's chest x-ray is better. Patient has cardiomegaly. He has bilateral alveolar and interstitial changes and he has a small to moderate size right pleural effusion. He is alert and oriented and can cooperate. Earlier today I evaluated patient with fiberoptic bronchoscopy. See the report. He had some mild erosive slightly friable bronchitis in the right lower lung that had the appearance of a recent pneumonia. This may be the etiology of his pleural effusion. The patient had only a small amount of sputum and both bronchial trees. I did not see any food or gastric content. Today the patient will go to stage II of his weaning protocol. The only positive culture is E. coli from the urine. ABGs on mechanical ventilation FiO2 40% shows a pH of 7.52 , PCO2 41.4, PO2 of 84.1 and a bicarb of 32.8. H&H is gradually dropping to 10.3/29.3. White count is 8276 segs and platelets are 141,000. Potassium is low at 3.2 and is being replaced. Theophylline level is 7.4. Last night the patient had atrial fib that required Cardizem and amiodarone. The patient's most recent echocardiogram (05/04/2017) showed pulmonary artery pressure above 70 whereas a month or so ago his pulmonary artery pressures were normal. We will repeat this today. Cardiology is seeing the patient in the past and placed cardiac pacemaker. Will last for follow-up evaluation. Also we have asked that his magnesium be checked. 05/10/2017. Patient's on stage III of the weaning protocol. Because of his anatomy chest x-ray is difficult to interpret. He has old pleural scarring on the right where he has had a previous pleural stripping. He has persistent pleural effusion on the right. Etiology of this is undetermined. His echocardiogram does not support congestive heart failure. He has no ascites on ultrasound of the abdomen. I discussed the possibility of thoracentesis by interventional radiologist with the and she is agreeable. We should send pleural fluid specimens for cytology, H&H, white blood cell count with differential, total protein, SGOT, LDH, Gram stain with bacterial culture, AFB stains and cultures. 05/15/2017. Patient is alert and oriented. His chest x-ray is better. His ABGs better. His lab is stable. He has been extubated today. Follow-up ABGs are pending. Findings and intentions were discussed with the patient's . Tuan Philip nurse practitioner was present 05/18/2017. Patient was bronchoscoped yesterday morning did well and suddenly developed a respiratory arrest followed by a short period of asystole on the night of 05/17/2017. He was intubated and I did an emergency bronchoscopy. His problem is retention of secretions were much more than I expected. This is slightly complicated by gastroesophageal reflux. Patient is going to need a trach. His is agreeable. ENT consultation is pending. Chest x-ray is stable today and ABGs are stable. He has has woken up and is been wide awake. 05/20/2017. On 05/19/2017 the patient had a trach placed. Dr. moreira's operative note is been reviewed. This was a long trach and ended 1-2 cm proximal to the carolyn. On the patient's chest x-ray he is flexed forward and the distal trachea appears to abut against the carolyn. I suspect this is why we are having problem passing the suction tube beyond the end of the trach. Methicillin-resistant staph aureus was grown from the patient's bronchoalveolar lavage is on 05/17/2017. ABGs on FiO2 of 50% mechanical ventilation show pH 7.312, PCO2 50 four-point, PO2 122 and a bicarb of 25 potassium is low normal at 3.5 H&H is stable. White count is stable. Vancomycin trough is 18.8. This is being managed by pharmacology 05/21/2017. ENT note is reviewed. Looks like to me on chest x-ray the tip of the patient's trach tube abuts against the carolyn and I suspect this is why cannot be suctioned. I have not bronchoscoped the patient. I will probably need to bronchoscope him soon for retention of secretions. His chest x-ray however is better pleural effusion on the right is improved and the atelectasis at the bases has improved. Oxygenation is adequate patient does have some hypercarbia. Electrolytes are normal. Creatinine 0.2 BUN is 8. CBC is stable. Vancomycin trough level is 21.5. Pharmacology is managing and adjusting this. Last bronchoscopy specimens from 05/17/2017 are growing methicillin-resistant staph aureus. 05/22/2017. Hopefully Dr. moreira will be back tomorrow. The trachea is not functioning well. By the x-ray of appearance it looks like it abuts against the carolyn. This is exacerbated by the patient's thoracic kyphosis. When we straighten him up and helps a little but he still cannot be suction. He was scoped by ENT occupational health nurse this weekend. His note is not tell me what was wrong. The patient is beginning to get bibasilar atelectasis secondary to sputum retention. His oxygenation is acceptable at this time. Talked to his this morning. She is talking about taking him home to hospice. I told her I think we can get trach to function better than it is now and that we can do whatever she likes but probably should consider [facility] long-term acute care. I have asked the staff to feed the patient and hold his feedings at about 3:00 tonight and later on check his stomach for residual. ABGs on mechanical ventilation FiO2 50% shows a pH 7.246, PCO2 of 57.5, PO2 of 198 and a bicarb of 22.5. Electrolytes are normal. Creatinine is 0.3 BUNs 10 CBC is stable. Bronchoalveolar lavages from 05/19/2017 are growing methicillin-resistant staph 05/23/2017. This morning the patient had fiberoptic bronchoscopy. He had a good bit of retained secretions. He is previously grown methicillin-resistant staph aureus and he was recultured. His trach tube looks fine. A few ventilator adjustments have been made and the patient now tolerates tidal volume of 450 cc with a peak pressure less than 30. He does not leak any air around his trach. His chest x-ray shows bibasilar atelectasis. Pleural fluid is come under good control. ABGs on mechanical ventilation FiO2 50% shows a pH 7.32, PCO2 51.6, PO2 150 and a bicarb of 24.2 H&H is dropped to 9.7/29.7. White blood cell count is 9200 and platelets of 304,000. Vancomycin is being managed by pharmacology. If things continue on her present course this patient could be ready for long-term acute care before the end of the week. 05/24/2017. Patient's done very well with his trach and mechanical ventilation. He is doing better on CPAP trials. His ABGs on mechanical ventilation FiO2 50% shows a pH 7.35, PCO2 53.2, PO2 of 145.8 and a bicarb of 28.7. This patient has an Keofeed feeding tube. Prior to his present status he was having some problems swallowing Dr. Reddy was seen in the head of and had placed him on erythromycin. I suppose we might consider a PEG tube. This patient is ready for long-term acute care and I am going to consult Dr. Marek Wu to see if he will accept this patient at [facility]. The patient has a staph aureus infection is on vancomycin which is being managed by pharmacology. Exam (Progress Note) - Constitutional Vitals: Period Temp Pulse Resp BP Sys/Ivey Pulse Ox Last 24 Hr 5 F-98.0 F 83-105 118-166/66-83 88-99 Exam: Neurologic. . Sedated. Moves all fours. Chest. Loose large airway congestion Heart no gallop Abdomen is obese, but nontender and nondistended; bowel sounds are positive 4 Extremities with nothing to suggest acute deep venous thrombophlebitis; bilateral pedal and pretibial edema; chronic venous stasis changes Neck. Also normal curvature secondary to ankylosing spondylitis. Musculoskeletal. Cervical thoracic and lumbar changes of ankylosing spondylitis Lymphatics. No submandibular cervical supraclavicular or epitrochlear adenopathy. The remainder the exam is noncontributory Plan. 05/08/2007 1. Fiberoptic bronchoscopy in the morning 2. Mechanical ventilation weaning protocol and physical therapy protocol 3. See today's note, above 05/09/2017. 1. Fiberoptic bronchoscopy showed no evidence of aspiration see report 2. Stage II to weaning protocol 3. Repeat echocardiogram with attention to recent onset of pulmonary hypertension 4. Replace potassium 5. Check magnesium 6. Daily chest x-ray ABGs and lab 7. Watch slow decline of H&H 8. Check bronchoscopy specimens 9. Cardiology consult 05/10/2017. 1. See today's note, above 2. Appreciate cardiology consultation 3. Fiberoptic bronchoscopy in the morning 4. Consult interventional radiologist for thoracentesis. Because of the patient's ankylosing spondylitis and anatomy of this will be difficult. See today's note above concerning studies when needed. This was discussed with the and she is agreeable 05/15/2017. 1. See today's note, above 2. Extubated 05/15/2017. Follow-up ABGs pending 3. Follow chest x-ray, ABGs and lab. 05/18/2017. 1. See my note above. 2. Intubated on the night of 05/17/2017. 3. ENT consultation for tracheostomy. 05/20/2017. 1. See my note, above. 2. Distal trachea appears to abut the carolyn 3. Weaning protocol. 4. Sputum's are still positive for methicillin-resistant staph aureus. Continue vancomycin 05/21/2017. 1. See my note from 06-04 and 05/21/2017. Suspected will have to adjust endotracheal tube. 2. Continue present regimen. 05/22/2017. 1. See my note above. 2. Dr. Jose babcock, ENT to reevaluate trach. On x-ray it appears to be too long and appears to abut against the trachea 3. Will need fiberoptic bronchoscopy tomorrow. Bibasilar atelectasis. 4. Discuss with . She needs to really discuss with social security specialist as the patient is status has changed since her last 05/23/2017. 1. See today's note, above 2. Fiberoptic bronchoscopy done 05/23/2017. See report 3. Ventilator adjustments have been made and these appear to be working fine. 4. Trach is working fine. 5. We will look into the possibility of long-term acute care near the end of the week. 6. Continue daily chest x-ray ABGs and lab 05/24/2017. 1. See today's note above. 2. Consult Dr. Wu for possible acceptance at [facility]. 3. We will consider PEG placement. not available this morning although she leftward that she would be outside. Exam (Progress Note) - Constitutional Vitals: Period Temp Pulse Resp BP Sys/Ivey Pulse Ox Last 24 Hr 98.0 F-98.5 F 80-110 11-30 97-143/57-80 95-100 Results - Labs CBC & BMP: 05/23/17 04:31 05/23/17 07:12 Specialty Discharge - Follow Up or Referrals Follow up with: Bala Ramírez MD [Primary Care Provider] - 1 Week (Needs appt with Dr. Wilson office for pt to be seen within 1 week of discharge date.)
--- NOTE | 2017-05-24 12:14 | Event Note ---
Patient seen briefly on Dr. Ramírez's request. We will be happy to taken transfer to [facility] tomorrow. Understand he is going to get a PEG tube in the morning. I will check back in the morning and plan to dictate him at that time.
[2017-05-24] MEDS: FLUCONAZOLE INJ 200 MG in PREMIX 1 EACH IV SCH (15:36)
[2017-05-24] MEDS: PHENYLEPHRINE DRIP 40 MG/250 ML PREMIX IV SCH (20:01)
[2017-05-24] MEDS: DILTIAZEM INJ 100 MG in SODIUM CHLORIDE 0.9% 100 ML IV SCH (20:38)
[2017-05-24] MEDS: CLORAZEPATE 3.75 MG TABLET PO SCH (20:54)
--- NOTE | 2017-05-24 22:04 | Gastrointestinal Progress Note ---
Assessment and Plan (1) Dysphagia, pharyngoesophageal Status: Acute Assessment and plan: This patient may have reflux in association with his chronic inability to change his position and remain upright. There may be reflux induced by a hypomotility the GI tract as well. It is possible that esophageal stricturing may be occurring as a result of impingement on the esophagus by bridging osteophytes from his fairly severe ankylosing spondylitis as well. I will have the patient undergo a barium swallow to evaluate this tomorrow and will plan on doing upper endoscopy with potential dilation to follow on Monday morning. I will leave him off of his anticoagulation for at least one day prior to the endoscopy to occur on Monday. In the interim we will go ahead and place the patient on pantoprazole IV twice daily to see if this helps out with his appetite. Will also add some medications colonic flow and decrease his bloating by getting rid of the lactulose. Risks of the above endoscopy include but are not limited to: Bleeding, infection, perforation, cardiac and pulmonary compromise. These were discussed with the patient, his , and son and they agreed to proceed with upper endoscopy to occur on Monday. 05/06/17--the patient's barium swallow fails to show any impingement upon the esophagus, overall the esophagus was narrowed there was no evidence of cancer nor dominant stricture noted. He is remaining off of anticoagulation in order to proceed with upper endoscopy to occur on Monday. I anticipate being able to do his dilation at that time. He is somewhat less bloated after discontinuing the lactulose. 05/07/17--We will check the patient's ammonia level since he was previously on lactulose and this has now been discontinued using MiraLAX and in its lieu. 05/08/17--findings at upper endoscopy today were as follows: No gross evidence of dominant stricture however the patient's upper esophagus did have a slight narrowing that was dilated to 57 Vietnamese by single pass Savary dilator with replacement of NG tube at the end of the case endoscopically. There was a sizable hiatal hernia noted and LA class B esophagitis. Stomach was J-shaped and had a diffuse gastritis noted, biopsies were taken, a dilated duodenum was also noted with biopsies taken here as well for sprue. Suggest holding off on restarting tube feeds until after the bronchoscopy is completed tomorrow. Will initiate erythromycin via the NG tube now that this is confirmed in the stomach endoscopically. 05/09/17--The bronchoscopy is been completed and the patient is now getting tube feeds at 35 mL/h. We will continue to watch and see what his residuals look like although this will be harder check with a Dobbhoff feeding tube. He remains on erythromycin 250 mg every 6 hours to help with his motility. He is starting to step up his diarrhea and I will ramp down on his MiraLAX as a result. 05/10/17--Doing well on the erythromycin. Patient has minimal residuals on 60 mL /h. Residuals are quite low at this point. Stools are doing adequately--one bowel movement a day and of the MiraLAX is been cut back. We will need to continue to watch this. 05/11/17--0 residuals on the erythromycin with tube feeds running at 60 mL/h which equals his goal rate. We do not know how well he responded to the dilation but this was performed several days ago. The patient is noted to have esophagitis which is responding to the Protonix. His stools are now down to 1 per day on the combination of Linzess and MiraLAX. From a GI standpoint this patient is doing very well. Once he wakes up enough to be able to swallow we can switch him over to oral erythromycin pills to maintain his emptying. He should be able to swallow better post dilation as well. I am going on vacation at this time and will sign off of the case. Please contact my partners if other issues arise. 05/24/17--The patient is seen again today in order to place PEG tube due to underlying dysphagia and need for tube feeds. He is about to go over to [facility] in the near future for continued weaning and already has a tracheostomy placed several days ago by Dr. Jose Covarrubias. Provided his agrees we will go ahead and place PEG tube tomorrow morning. The patient is no longer on erythromycin and appears to have good emptying from his stomach with low residuals on 60 mL/h Osmolite. Current Visit: Yes (2) Abnormal weight loss Status: Acute Assessment and plan: For the past year the patient states that his weight has dropped from 275 pounds to 229 pounds. He states that while some of this is volitional some of it is certainly not and he is only been able to eat about 10% of his trays while here. He does not have the sensation of reflux. His difficulty with swallowing is overcome by chewing his food extremely carefully and following bites with clear liquids in between. This only occurs with solids and is highly suspicious for a physical stricture versus cancer. Again a barium swallow is being arranged for tomorrow--not only will this look for physical stricture but also assess for spinal impingement and dysmotility at the same time. 05/06/17--No new complaints, awaiting upper endoscopy Monday. 05/07/17--we will arrange for upper endoscopy Monday, tomorrow in order to look for evidence of the cause for his weight loss and consider doing dilation at the same time 05/08/17--We Will see how he is able to swallow later after he is off the ventilator. The patient has no gross evidence of an obstruction but does have dilation of the duodenum possibly pointing to a GI hypomotility. 05/09/17--Tube feedings been started, observe residuals. This patient will have a tendency towards ileus, hence the start of the erythromycin. 05/10/17--Continue tube feeds, observe for residuals, continue erythromycin. 05/11/17--As noted above, will sign off the case, please contact my partners if other issues arise in my absence. 05/24/17--Weight loss has stabilized. Patient is being given a PEG tube for long- term nutritional intake, medication intake and hydration. Current Visit: Yes (3) Macrocytic anemia Status: Acute Assessment and plan: May be related to B12 or folate deficiency versus alcohol intake versus myelodysplastic syndrome. His platelet level is normal I do not believe this is cirrhosis-related. 05/07/17--B12 and folate levels were completely normal. This leaves myelodysplastic syndrome versus cirrhosis is potential causes for the patient's macrocytic chronic anemia 05/08/17--as noted above 05/09/17--Patient does have some mild upper GI bleeding, will continue to observe. 05/10/17--as noted above--repeat CBC not checked yet. 05/11/17--The patient's hematocrit is stable at 30.9%. Continue watching on Protonix to protect him from his esophagitis. Switch this over to oral pills once the patient is able swallow again routinely. 05/24/17 --Patient's hematocrit is now 29.7 not significantly different from one seen before. He briefly had a macrocytic anemia but this appears to have improved with current MCV at 99.3 and platelets of 305 as of 05/23/17. Current Visit: Yes (4) Chronic constipation Status: Acute Assessment and plan: This patient does have chronic constipation possibly related to his intake of hydrocodone/acetaminophen as well as his low-dose fentanyl patch and poor mobility possibly poor hydration. She has been given lactulose which is probably adding to his bloating and I have discontinued this medication. His has had great success with enemas and magnesium citrate at home. I am going to see if we can get by using Linzess in addition to MiraLAX instead. Orders have been written we need to observe and see what effect he has with these medications. Certainly would like to stop the MiraLAX first if this ends up being a brisk response to the Linzess. 05/06/17--The patient just had a barium study done today, he is getting his MiraLAX, if he is not a had a bowel movement today at some point we might consider use of another dose of magnesium citrate tomorrow to help him flush out the barium. He has a history of chronic constipation. 05/07/17--observing for present time. 05/08/17--Continue observation, doubt that he will do much stooling until he is starting back on tube feeds. 05/09/17--The patient is doing better with the MiraLAX twice daily and erythromycin. At this point given his diarrhea will cut back to once a day with MiraLAX. 05/10/17--observe constipation now that MiraLAX is down to 1 per day and Linzess is continuing. 05/11/17--Doing well on the Linzess and MiraLAX combination with one bowel movement per day. 05/24/17--The patient remains on Linzess at this time. He is requiring a BMS for loose stools, at this point I will go ahead and stop his MiraLAX which is only getting daily. 200 mL a stool is about average for most of us but we can improve the consistency to the point where he does not require BMS perhaps. Current Visit: Yes Gastroenterology - PN: Subj Interval history: This patient was seen earlier in his admission with a upper GI bleed caused by esophagitis, he has been on Protonix since that time and has now become ventilator dependent with his respiratory failure and ankylosing spondylitis. He has a trach placed recently and this now needing a feeding tube prior to going to [facility] for continued weaning. His last dose of Lovenox was 03:15 this morning--I have discussed with the nurse holding this medication so that he will be ready for PEG tube placement tomorrow. Exam (Progress Note) - Constitutional Vitals: Period Temp Pulse Resp BP Sys/Ivey Pulse Ox Last 24 Hr 97.8 F-98.5 F 75-110 12-32 97-143/56-80 98-100 General appearance: no acute distress - Head Head exam: Present: normal inspection, normocephalic - Respiratory Respiratory exam: Absent: stridor, wheezes - Cardiovascular Cardiovascular exam: Present: regular rate and rhythm - GI/Abdominal GI/Abdominal exam: Present: normal bowel sounds, soft. Absent: distended, guarding, tenderness, rebound - Extremities Exam Extremities exam: Present: edema (+2 pitting edema in all extremities) - Neurological Exam Neurological exam: Present: altered (Patient is sedated with propofol) - Psychiatric Psychiatric exam: Present: flat affect - Skin Skin exam: Present: warm Results - Labs CBC & BMP: 05/23/17 04:31 05/23/17 07:12 Specialty Discharge - Follow Up or Referrals Follow up with: Bala Ramírez MD [Primary Care Provider] - 1 Week (Needs appt with Dr. Wilson office for pt to be seen within 1 week of discharge date.)
[2017-05-25] MEDS: ALBUTEROL/IPRATROPIUM 3 ML NEB RESP TX SCH ×4 (00:48→19:31)
[2017-05-25] MEDS: INSULIN LISPRO 100 UNIT/ML SUBCUT SCH ×4 (01:07→17:44)
[2017-05-25] MEDS: PROPOFOL 1,000 MG/100 ML BOTTLE IV SCH ×3 (03:47→22:41)
[2017-05-25 05:18] LABS: ABG Base Excess 2.8 MMOL/L (-2.5-2.5); ABG Oxygen Saturation 98.8 % (95-100); ABG PCO2 62.2 MM HG (35-48); ABG PH 7.298 (7.35-7.45); ABG TCO2 28.5 MMOL/L (23-27)
[2017-05-25 06:00] LABS: Magnesium 2.1 MG/DL (1.8-2.4); Phosphorous 3.4 MG/DL (2.5-4.9); Prealbumin 11.9 MG/DL (20-40)
--- NOTE | 2017-05-25 08:02 | XRay Report ---
Exam: XR chest 1V portable Date: 05/25/2017 4:00 AM Indication: Follow-up ventilator tracheostomy tube Comparison: 05/24/2017 Technical: AP Findings: Endotracheal tube nasogastric tube right-sided PICC line and a left-sided cardiac pacing device with atrial ventricular leads are present. Low volume effusions atelectatic changes are present. Diffuse alveolar edema present superimposed on chronic lung disease. No pneumothorax. Mild cardiac enlargement. Previous vertebral plasty. Impression: 1. Stable appearance of life support tubing 2. Persistent diffuse effusions alveolar edema superimposed on chronic lung disease changes 3. No significant interval change PROCEDURE INTERPRETED AT [facility] DEPARTMENT OF RADIOLOGY Final Report Signed by: Dr. Bala Delatorre
--- NOTE | 2017-05-25 08:37 | Hospitalist Progress Note ---
Assessment and Plan (1) UTI (urinary tract infection) Status: Acute Assessment and plan: Impression: 1. Urinary tract infection with sepsis, resolved 2. COPD 3. Acute respiratory failure, now with tracheostomy, and MRSA in sputum. Plan: He is going to have a PEG tube inserted today. Transfer to [facility] per pulmonary. This note was completed using Lydia voice recognition software. There may be computer systems support specialist errors as a result. Current Visit: Yes Hospitalist: Subjective Interval history: Follow-up UTI with sepsis, acute respiratory failure, COPD. The patient is going to have a PEG tube placed this morning. He is currently on spontaneous mode on the ventilator, and appears to be tolerating this fairly well. He is receiving appropriate antibiotics for the organisms in the sputum. Planning on transfer to [facility] today or tomorrow. Exam - Constitutional Vitals: Period Temp Pulse Resp BP Sys/Ivey Pulse Ox Last 24 Hr 96.8 F-98.0 F 75-110 16-32 97-140/56-80 95-100 Vital signs are noted above. Heart is regular with frequent PACs. He has a few rhonchi in the chest. Abdomen is protuberant with positive bowel sounds. Results - Labs CBC & BMP: 05/23/17 04:31 05/23/17 07:12 Quality Measures - Stroke Symptom Onset Unknown: No Specialty Discharge - Follow Up or Referrals Follow up with: Bala Ramírez MD [Primary Care Provider] - 1 Week (Needs appt with Dr. Wilson office for pt to be seen within 1 week of discharge date.)
[2017-05-25] MEDS ORDERED: PROPOFOL 200 MG/20 ML VIAL IV ONE (09:00)
[2017-05-25] MEDS ORDERED: LIDOCAINE 1% 5 ML VIAL ONE (09:00)
[2017-05-25] MEDS ORDERED: PHENYLEPHRINE 1 MG/10 ML SYRINGE IV ONE (09:00)
[2017-05-25 10:59] LABS: ABG Base Excess 1.9 MMOL/L (-2.5-2.5); ABG HCO3 26.1 MMOL/L (20-26); ABG Oxygen Saturation 98.6 % (95-100); ABG PCO2 58.4 MM HG (35-48); ABG PH 7.308 (7.35-7.45); ABG TCO2 27.1 MMOL/L (23-27)
--- NOTE | 2017-05-25 11:13 | Pulmonology Progress Note ---
Pulmonary - PN: Subj Interval history: Mr. Fischer is a 66-year-old white male who we saw in initial pulmonary consultation on 05/04/2017. At that time, our impressions were: #1: Acute altered mental status most likely secondary to #2 but consider other causes #2: Acute urinary tract infection #3: Ankylosing spondylitis with probable spinal stenosis. Anatomy and pain limited mobility. #4: Peripheral sensory neuropathy. His symptoms have gradually worsened over time. #5: Chronic venous stasis of the lower extremities. #6: Vitamin B deficiency. #7: Past history of tobacco abuse #8: COPD/asthma #9: Past history of high blood pressure #10: Hypothyroidism #11: Bilateral pleural effusions of unknown etiology #12: Dual-chamber cardiac pacemaker #13: History of marijuana use #14: History of compression fractures with chronic pain. Now under the care of Dr. Patel. #15: See past history 05/05/2017. Patient was seen today along with his . The patient is awake, alert, and oriented this morning. His theophylline was discontinued per the 's request yesterday. Of note, his theophylline level was 7.9. He has been seen in pain management consultation with Dr. Patel. His note has been reviewed. We appreciate his assistance. He will be out of town for the next few days, but upon his return we will begin tapering the patient's pain medications as per his note. Patient's lower extremities continue to be edematous. We will give Mr. Keith a one-time dose of IV Lasix. We will start Zaroxolyn 5 mg p.o. daily and KCl 20 mEq daily. Daily BMP/magnesium has been ordered. The patient's echocardiogram this admission as read by Dr. Vega showed an estimated EF of 60%, approximately 1+ mitral and aortic regurgitation , 1-2+ tricuspid regurgitation with a right ventricular systolic pressure of 60 mmHg plus the right atrial pressure suggesting severe pulmonary hypertension. This is a significant change from the echocardiogram done 04/12/[address] Nova which showed an EF estimated at 60%, grade 1 diastolic dysfunction, normal to mildly elevated filling pressures, mild aortic valve regurgitation, moderate ventricular hypertrophy with no demonstrable increase in right-sided pressure, and tricuspid regurgitation velocity suggesting a right ventricular systolic pressure of 23 mmHg plus the right atrial pressure. On chest x-ray today, the pleural effusion is improved. This patient has great difficulty laying flat given his ankylosing spondylitis, so we will begin diuresing him with his Zaroxolyn and see if his pleural effusion will resolve rather than proceed with CT PE protocol at this time. We will repeat a chest x-ray on Monday. Doppler venograms showed no evidence of dizziness thrombophlebitis. Abdominal ultrasound showed no ascites. Medications have been reviewed. Labs have been reviewed. White count is 5900 with a normal differential; H&H 10.7/33.6; platelet count 172,000; creatinine 0.40, BUN 8, electrolytes are normal; magnesium 2.5 Microbiology has been reviewed. Urine culture has grown E. coli. He is on Fortaz and Levaquin. Urine drug screen was positive for benzodiazepines and cannabinoids 05/08/2017 during the weekend the patient deteriorated. He developed a severe acidosis and a markedly elevated PCO2 and required movement to CCU along with intubation mechanical ventilation. He is still on the ventilator.His chest x- ray shows bibasilar infiltrates and some faint infiltrates in the right upper lung. Still has a small right pleural effusion. This is unexpected and I have to wonder about aspiration. We will plan to evaluate with fiberoptic bronchoscopy in the morning. His only positive cultures E. coli from his urine. ABGs have been ordered but are pending. Potassium is low at 3.0 and the patient will be placed on protocol. Natruretic peptide is 92. H&H is 10.8/ 31.9. White count is 8674.4 segs 7 lymphs and 16.1 monocytes. EKG shows no acute changes. At this point I am not entirely clear why the patient deteriorated so rapidly. 05/09/2017. Today's chest x-ray is better. Patient has cardiomegaly. He has bilateral alveolar and interstitial changes and he has a small to moderate size right pleural effusion. He is alert and oriented and can cooperate. Earlier today I evaluated patient with fiberoptic bronchoscopy. See the report. He had some mild erosive slightly friable bronchitis in the right lower lung that had the appearance of a recent pneumonia. This may be the etiology of his pleural effusion. The patient had only a small amount of sputum and both bronchial trees. I did not see any food or gastric content. Today the patient will go to stage II of his weaning protocol. The only positive culture is E. coli from the urine. ABGs on mechanical ventilation FiO2 40% shows a pH of 7.52 , PCO2 41.4, PO2 of 84.1 and a bicarb of 32.8. H&H is gradually dropping to 10.3/29.3. White count is 8276 segs and platelets are 141,000. Potassium is low at 3.2 and is being replaced. Theophylline level is 7.4. Last night the patient had atrial fib that required Cardizem and amiodarone. The patient's most recent echocardiogram (05/04/2017) showed pulmonary artery pressure above 70 whereas a month or so ago his pulmonary artery pressures were normal. We will repeat this today. Cardiology is seeing the patient in the past and placed cardiac pacemaker. Will last for follow-up evaluation. Also we have asked that his magnesium be checked. 05/10/2017. Patient's on stage III of the weaning protocol. Because of his anatomy chest x-ray is difficult to interpret. He has old pleural scarring on the right where he has had a previous pleural stripping. He has persistent pleural effusion on the right. Etiology of this is undetermined. His echocardiogram does not support congestive heart failure. He has no ascites on ultrasound of the abdomen. I discussed the possibility of thoracentesis by interventional radiologist with the and she is agreeable. We should send pleural fluid specimens for cytology, H&H, white blood cell count with differential, total protein, SGOT, LDH, Gram stain with bacterial culture, AFB stains and cultures. 05/15/2017. Patient is alert and oriented. His chest x-ray is better. His ABGs better. His lab is stable. He has been extubated today. Follow-up ABGs are pending. Findings and intentions were discussed with the patient's . Tuan Philip nurse practitioner was present 05/18/2017. Patient was bronchoscoped yesterday morning did well and suddenly developed a respiratory arrest followed by a short period of asystole on the night of 05/17/2017. He was intubated and I did an emergency bronchoscopy. His problem is retention of secretions were much more than I expected. This is slightly complicated by gastroesophageal reflux. Patient is going to need a trach. His is agreeable. ENT consultation is pending. Chest x-ray is stable today and ABGs are stable. He has has woken up and is been wide awake. 05/20/2017. On 05/19/2017 the patient had a trach placed. Dr. moreira's operative note is been reviewed. This was a long trach and ended 1-2 cm proximal to the carolyn. On the patient's chest x-ray he is flexed forward and the distal trachea appears to abut against the carolyn. I suspect this is why we are having problem passing the suction tube beyond the end of the trach. Methicillin-resistant staph aureus was grown from the patient's bronchoalveolar lavage is on 05/17/2017. ABGs on FiO2 of 50% mechanical ventilation show pH 7.312, PCO2 50 four-point, PO2 122 and a bicarb of 25 potassium is low normal at 3.5 H&H is stable. White count is stable. Vancomycin trough is 18.8. This is being managed by pharmacology 05/21/2017. ENT note is reviewed. Looks like to me on chest x-ray the tip of the patient's trach tube abuts against the carolyn and I suspect this is why cannot be suctioned. I have not bronchoscoped the patient. I will probably need to bronchoscope him soon for retention of secretions. His chest x-ray however is better pleural effusion on the right is improved and the atelectasis at the bases has improved. Oxygenation is adequate patient does have some hypercarbia. Electrolytes are normal. Creatinine 0.2 BUN is 8. CBC is stable. Vancomycin trough level is 21.5. Pharmacology is managing and adjusting this. Last bronchoscopy specimens from 05/17/2017 are growing methicillin-resistant staph aureus. 05/22/2017. Hopefully Dr. moreira will be back tomorrow. The trachea is not functioning well. By the x-ray of appearance it looks like it abuts against the carolyn. This is exacerbated by the patient's thoracic kyphosis. When we straighten him up and helps a little but he still cannot be suction. He was scoped by ENT functional director this weekend. His note is not tell me what was wrong. The patient is beginning to get bibasilar atelectasis secondary to sputum retention. His oxygenation is acceptable at this time. Talked to his this morning. She is talking about taking him home to hospice. I told her I think we can get trach to function better than it is now and that we can do whatever she likes but probably should consider [facility] long-term acute care. I have asked the staff to feed the patient and hold his feedings at about 3:00 tonight and later on check his stomach for residual. ABGs on mechanical ventilation FiO2 50% shows a pH 7.246, PCO2 of 57.5, PO2 of 198 and a bicarb of 22.5. Electrolytes are normal. Creatinine is 0.3 BUNs 10 CBC is stable. Bronchoalveolar lavages from 05/19/2017 are growing methicillin-resistant staph 05/23/2017. This morning the patient had fiberoptic bronchoscopy. He had a good bit of retained secretions. He is previously grown methicillin-resistant staph aureus and he was recultured. His trach tube looks fine. A few ventilator adjustments have been made and the patient now tolerates tidal volume of 450 cc with a peak pressure less than 30. He does not leak any air around his trach. His chest x-ray shows bibasilar atelectasis. Pleural fluid is come under good control. ABGs on mechanical ventilation FiO2 50% shows a pH 7.32, PCO2 51.6, PO2 150 and a bicarb of 24.2 H&H is dropped to 9.7/29.7. White blood cell count is 9200 and platelets of 304,000. Vancomycin is being managed by pharmacology. If things continue on her present course this patient could be ready for long-term acute care before the end of the week. 05/24/2017. Patient's done very well with his trach and mechanical ventilation. He is doing better on CPAP trials. His ABGs on mechanical ventilation FiO2 50% shows a pH 7.35, PCO2 53.2, PO2 of 145.8 and a bicarb of 28.7. This patient has an Keofeed feeding tube. Prior to his present status he was having some problems swallowing Dr. Reddy was seen in the head of and had placed him on erythromycin. I suppose we might consider a PEG tube. This patient is ready for long-term acute care and I am going to consult Dr. Marek Wu to see if he will accept this patient at [facility]. The patient has a staph aureus infection is on vancomycin which is being managed by pharmacology. 05/25/2017. Patient's for PEG tube today. He is beginning to get a little bit of pleural effusion.His natruretic peptide is only 194. ABGs on CPAP showed pH of 7.308, PCO2 58.4, PO2 134 and a bicarb of 26.1. Patient is on Diamox and this seems to have helped his glucose is under good control. This patient is possible for transfer to [facility] tomorrow if all goes well with the PEG. This was discussed with his last night. Exam (Progress Note) - Constitutional Vitals: Period Temp Pulse Resp BP Sys/Ivey Pulse Ox Last 24 Hr 5 F-98.0 F 83-105 18-28 118-166/66-83 88-99 Exam: Neurologic. . Sedated. Moves all fours. Chest. Loose large airway congestion Heart no gallop Abdomen is obese, but nontender and nondistended; bowel sounds are positive 4 Extremities with nothing to suggest acute deep venous thrombophlebitis; bilateral pedal and pretibial edema; chronic venous stasis changes Neck. Also normal curvature secondary to ankylosing spondylitis. Musculoskeletal. Cervical thoracic and lumbar changes of ankylosing spondylitis Lymphatics. No submandibular cervical supraclavicular or epitrochlear adenopathy. The remainder the exam is noncontributory Plan. 05/08/2007 1. Fiberoptic bronchoscopy in the morning 2. Mechanical ventilation weaning protocol and physical therapy protocol 3. See today's note, above 05/09/2017. 1. Fiberoptic bronchoscopy showed no evidence of aspiration see report 2. Stage II to weaning protocol 3. Repeat echocardiogram with attention to recent onset of pulmonary hypertension 4. Replace potassium 5. Check magnesium 6. Daily chest x-ray ABGs and lab 7. Watch slow decline of H&H 8. Check bronchoscopy specimens 9. Cardiology consult 05/10/2017. 1. See today's note, above 2. Appreciate cardiology consultation 3. Fiberoptic bronchoscopy in the morning 4. Consult interventional radiologist for thoracentesis. Because of the patient's ankylosing spondylitis and anatomy of this will be difficult. See today's note above concerning studies when needed. This was discussed with the and she is agreeable 05/15/2017. 1. See today's note, above 2. Extubated 05/15/2017. Follow-up ABGs pending 3. Follow chest x-ray, ABGs and lab. 05/18/2017. 1. See my note above. 2. Intubated on the night of 05/17/2017. 3. ENT consultation for tracheostomy. 05/20/2017. 1. See my note, above. 2. Distal trachea appears to abut the carolyn 3. Weaning protocol. 4. Sputum's are still positive for methicillin-resistant staph aureus. Continue vancomycin 05/21/2017. 1. See my note from 06-04 and 05/21/2017. Suspected will have to adjust endotracheal tube. 2. Continue present regimen. 05/22/2017. 1. See my note above. 2. Dr. Jose babcock, ENT to reevaluate trach. On x-ray it appears to be too long and appears to abut against the trachea 3. Will need fiberoptic bronchoscopy tomorrow. Bibasilar atelectasis. 4. Discuss with . She needs to really discuss with social work professor as the patient is status has changed since her last 05/23/2017. 1. See today's note, above 2. Fiberoptic bronchoscopy done 05/23/2017. See report 3. Ventilator adjustments have been made and these appear to be working fine. 4. Trach is working fine. 5. We will look into the possibility of long-term acute care near the end of the week. 6. Continue daily chest x-ray ABGs and lab 05/24/2017. 1. See today's note above. 2. Consult Dr. Wu for possible acceptance at [facility]. 3. We will consider PEG placement. not available this morning although she leftward that she would be outside. 05/25/2017. 1. PEG 2. Possible transfer to [facility] tomorrow 3. Watch pleural effusions. Early in hospitalization he had a right thoracentesis and this showed an exudate but the cause is never been apparent Exam (Progress Note) - Constitutional Vitals: Period Temp Pulse Resp BP Sys/Ivey Pulse Ox Last 24 Hr 96.8 F-98.0 F 75-103 16-32 99-140/56-77 95-100 Results - Labs CBC & BMP: 05/23/17 04:31 05/23/17 07:12 Specialty Discharge - Follow Up or Referrals Follow up with: Bala Ramírez MD [Primary Care Provider] - 1 Week (Needs appt with Dr. Wilson office for pt to be seen within 1 week of discharge date.)
--- NOTE | 2017-05-25 12:46 | Operative Note ---
Date of procedure: 05/25/17 Pre-op diagnosis: Patient with tracheostomy requiring chronic vent wean, PEG needed Post-op diagnosis: other (Successful PEG tube placement, dilated stomach and duodenum with patulous pyloric channel, now with healed esophagitis which had been a major source of bleeding in this patient and mild residual gastritis present.) Procedure: PROCEDURE: Esophagogastroduodenoscopy (EGD) with percutaneous endoscopic gastrostomy (PEG) tube placement REFERRING PHYSICIAN: Mikey Lazcano MD INDICATIONS: Dysphagia in a patient with ankylosing spondylitis and previous severe esophagitis now improved post Protonix IV twice daily, this patient has required chronic weaning and is vent dependent at this time. Tracheostomy has been required and now the patient requires PEG tube for ongoing nutrition medication and high patient needs. He was having some previous high residuals but this has improved over time. ENDOSCOPIST: Khoa Reddy MD ENDOSCOPE: [email or web address] 100 System upper endoscope ASA CLASS: 4 EXAM: CV: Regular rate and rhythm respiratory: Clear to ascultation abdominal: Positive bowel sounds MEDICATION: As per Anesthesia nursing protocol, see their notes PROCEDURE: After discussion of the potential risks and benefits of upper endoscopy and PEG placement, the informed consent was obtained. The patient was then placed in the left lateral decubitus position where sedation was achieved as noted above. Esophageal intubation was performed without difficulty , and the endoscope was advanced through the esophagus, stomach and duodenum. A slow withdrawal was then performed with retroflexion in the stomach for careful inspection of the incisura angularis, fundus and cardia. The scope was then returned to a neutral position and withdrawn through the esophagus. The patient tolerated the procedure well and without complication. BIOPSIES: None obtained PHOTOGRAPHS: Obtained FINDINGS: Hypopharynx and Larynx: Normal Esohagoscopy Upper and middle thirds: Normal Lower third Normal Esophogastric junctions: No evidence of erosion, or Ross's epithelium--> previously noted severe esophagitis is completely healed. Gastroscopy: Cardia/Fundus: 3 cm hiatal hernia noted Body: Mild patchy gastritis Antrum and pylorus mild patchy gastritis, patulous pyloric channel Duodenoscopy: Bulb dilated but otherwise normal Second and third portions: Dilated but otherwise normal PEG Kit/tube size: panOpen 20 [place] PEG tube PEG Placement: After insufflation of the stomach with the prior procedure proper positioning was determined through transillumination and direct pressure with one to one transmission through the abdominal wall. The abdomen was sterilely prepped and draped, injected with 1% lidocaine and a 1 cm incision was cut in the external skin to accommodate the PEG tube. Using standard Ponsky "pull" technique, a catheter was inserted into the stomach (using a fluid filled syringe with back-suction to examine for interposed hollow organs) and a string was advanced into the stomach. This was snared through the scope, pulled through the mouth and tied to the PEG tube. The feeding tube was then pulled down into the stomach and out the abdominal wall, and a hub appropriately placed at the base to provide traction between internal hub and external skin. The tube was trimmed, dressed and a second look with the endoscope used to confirm position and function of the tube. The procedure was tolerated well and without complication. IMPRESSION: Successful PEG tube placement, dilated stomach and duodenum with patulous pyloric channel, now with healed esophagitis which had been a major source of bleeding in this patient and mild residual gastritis present. RECOMMENDATIONS: Maintain head of bed at 30 degrees Flush the PEG tube with 30 cc of water or saline every 4 hours Obtain (if not done already) nutritional consult to determine optimal feeding rate, continuous vs. bolus, and any hydration requirements necessary. Meds may be crushed and flushed through PEG in 12 hours, followed by 10 ml of water, as per the patient's attending physcian. Feeding though the tube may start at 12 hours with an initial rate of 30 ml/ hour advancing by 10 ml's every four hours until goal rate achieved. Hold tube feeds for residuals greater than 100 ml, checked each shift. Continue use of Protonix at least daily. Khoa Reddy MD Copy to: Mikey Lazcano MD Anesthesia: MAC Surgeon / Physician: Khoa Reddy Estimated blood loss: minimal Specimens: none sent Condition: stable Disposition: post procedure unit ([facility]) Results - Labs CBC & BMP: 05/23/17 04:31 05/23/17 07:12 Discharge Plan - Discharge Medications No Action Imipramine HCl 25 mg PO DAILY Levothyroxine Tab [Synthroid Tab] 100 mcg PO DAILY Folic Acid Tab 1 mg PO DAILY tablet Lidocaine 5% Patch [Lidoderm 5% Patch] 1 patch TRANSDERM DAILY patch miSOPROStol [Cytotec] 200 mcg PO DAILY tablet Thiamine Tab [Vitamin B1 Tab] 100 mg PO DAILY tablet Bisacodyl Tab [Dulcolax Tab] 5 mg PO DAILY PRN PRN Reason: Constipation Ascorbic Acid Tab [Vitamin C Tab] 500 mg PO DAILY Lactulose Liquid [Chronulac] 30 ml PO BID HYDROcodone/ACETAMIN 5-325 [[place] 5-325] 1 tablet PO Q8H PRN #90 tablet PRN Reason: Pain Moderate (4-7) Skin Healing Oint (Aquaphor) [Aquaphor] 1 applic TOP PRN PRN applic PRN Reason: Dry Skin Clorazepate [Tranxene] 3.75 mg PO BEDTIME fentaNYL 12 MCG/HR PATCH [Duragesic 12 Patch] 1 patch TRANSDERM Q3DAY Theophylline ER Tab 300 mg PO Q12H Bisoprolol [Zebeta] 5 mg PO DAILY tablet Multivitamin (Centrum) [Centrum Tab] 1 tablet PO DAILY tablet Albuterol Sulfate [Albuterol Neb] 2.5 mg RESP TX TID - Follow Up or Referral Follow Up: Bala Ramírez MD [Primary Care Provider] - 1 Week (Needs appt with Dr. Wilson office for pt to be seen within 1 week of discharge date.) - Forms/Instructions
--- NOTE | 2017-05-25 12:54 | Gastrointestinal Progress Note ---
Assessment and Plan (1) Dysphagia, pharyngoesophageal Status: Acute Assessment and plan: This patient may have reflux in association with his chronic inability to change his position and remain upright. There may be reflux induced by a hypomotility the GI tract as well. It is possible that esophageal stricturing may be occurring as a result of impingement on the esophagus by bridging osteophytes from his fairly severe ankylosing spondylitis as well. I will have the patient undergo a barium swallow to evaluate this tomorrow and will plan on doing upper endoscopy with potential dilation to follow on Monday morning. I will leave him off of his anticoagulation for at least one day prior to the endoscopy to occur on Monday. In the interim we will go ahead and place the patient on pantoprazole IV twice daily to see if this helps out with his appetite. Will also add some medications colonic flow and decrease his bloating by getting rid of the lactulose. Risks of the above endoscopy include but are not limited to: Bleeding, infection, perforation, cardiac and pulmonary compromise. These were discussed with the patient, his , and son and they agreed to proceed with upper endoscopy to occur on Monday. 05/06/17--the patient's barium swallow fails to show any impingement upon the esophagus, overall the esophagus was narrowed there was no evidence of cancer nor dominant stricture noted. He is remaining off of anticoagulation in order to proceed with upper endoscopy to occur on Monday. I anticipate being able to do his dilation at that time. He is somewhat less bloated after discontinuing the lactulose. 05/07/17--We will check the patient's ammonia level since he was previously on lactulose and this has now been discontinued using MiraLAX and in its lieu. 05/08/17--findings at upper endoscopy today were as follows: No gross evidence of dominant stricture however the patient's upper esophagus did have a slight narrowing that was dilated to 57 Nepalese by single pass Savary dilator with replacement of NG tube at the end of the case endoscopically. There was a sizable hiatal hernia noted and LA class B esophagitis. Stomach was J-shaped and had a diffuse gastritis noted, biopsies were taken, a dilated duodenum was also noted with biopsies taken here as well for sprue. Suggest holding off on restarting tube feeds until after the bronchoscopy is completed tomorrow. Will initiate erythromycin via the NG tube now that this is confirmed in the stomach endoscopically. 05/09/17--The bronchoscopy is been completed and the patient is now getting tube feeds at 35 mL/h. We will continue to watch and see what his residuals look like although this will be harder check with a Dobbhoff feeding tube. He remains on erythromycin 250 mg every 6 hours to help with his motility. He is starting to step up his diarrhea and I will ramp down on his MiraLAX as a result. 05/10/17--Doing well on the erythromycin. Patient has minimal residuals on 60 mL /h. Residuals are quite low at this point. Stools are doing adequately--one bowel movement a day and of the MiraLAX is been cut back. We will need to continue to watch this. 05/11/17--0 residuals on the erythromycin with tube feeds running at 60 mL/h which equals his goal rate. We do not know how well he responded to the dilation but this was performed several days ago. The patient is noted to have esophagitis which is responding to the Protonix. His stools are now down to 1 per day on the combination of Linzess and MiraLAX. From a GI standpoint this patient is doing very well. Once he wakes up enough to be able to swallow we can switch him over to oral erythromycin pills to maintain his emptying. He should be able to swallow better post dilation as well. I am going on vacation at this time and will sign off of the case. Please contact my partners if other issues arise. 05/24/17--The patient is seen again today in order to place PEG tube due to underlying dysphagia and need for tube feeds. He is about to go over to [facility] in the near future for continued weaning and already has a tracheostomy placed several days ago by Dr. Jose Covarrubias. Provided his agrees we will go ahead and place PEG tube tomorrow morning. The patient is no longer on erythromycin and appears to have good emptying from his stomach with low residuals on 60 mL/h Osmolite. 05/25/17--PEG tube placed without difficulty, the previously noted esophagitis is completely healed. Patient does have some mild residual gastritis and a dilated duodenum. From a GI standpoint he is good for transfer. Current Visit: Yes (2) Abnormal weight loss Status: Acute Assessment and plan: For the past year the patient states that his weight has dropped from 275 pounds to 229 pounds. He states that while some of this is volitional some of it is certainly not and he is only been able to eat about 10% of his trays while here. He does not have the sensation of reflux. His difficulty with swallowing is overcome by chewing his food extremely carefully and following bites with clear liquids in between. This only occurs with solids and is highly suspicious for a physical stricture versus cancer. Again a barium swallow is being arranged for tomorrow--not only will this look for physical stricture but also assess for spinal impingement and dysmotility at the same time. 05/06/17--No new complaints, awaiting upper endoscopy Monday. 05/07/17--we will arrange for upper endoscopy Monday, tomorrow in order to look for evidence of the cause for his weight loss and consider doing dilation at the same time 05/08/17--We Will see how he is able to swallow later after he is off the ventilator. The patient has no gross evidence of an obstruction but does have dilation of the duodenum possibly pointing to a GI hypomotility. 05/09/17--Tube feedings been started, observe residuals. This patient will have a tendency towards ileus, hence the start of the erythromycin. 05/10/17--Continue tube feeds, observe for residuals, continue erythromycin. 05/11/17--As noted above, will sign off the case, please contact my partners if other issues arise in my absence. 05/24/17--Weight loss has stabilized. Patient is being given a PEG tube for long- term nutritional intake, medication intake and hydration. 05/25/17--PEG tube is been placed today and should last for some time. I doubt this patient will need a abdominal binder but this could certainly be placed as well. Current Visit: Yes (3) Macrocytic anemia Status: Acute Assessment and plan: May be related to B12 or folate deficiency versus alcohol intake versus myelodysplastic syndrome. His platelet level is normal I do not believe this is cirrhosis-related. 05/07/17--B12 and folate levels were completely normal. This leaves myelodysplastic syndrome versus cirrhosis is potential causes for the patient's macrocytic chronic anemia 05/08/17--as noted above 05/09/17--Patient does have some mild upper GI bleeding, will continue to observe. 05/10/17--as noted above--repeat CBC not checked yet. 05/11/17--The patient's hematocrit is stable at 30.9%. Continue watching on Protonix to protect him from his esophagitis. Switch this over to oral pills once the patient is able swallow again routinely. 05/24/17 --Patient's hematocrit is now 29.7 not significantly different from one seen before. He briefly had a macrocytic anemia but this appears to have improved with current MCV at 99.3 and platelets of 305 as of 05/23/17. 05/25/17--as noted above. Current Visit: Yes (4) Chronic constipation Status: Acute Assessment and plan: This patient does have chronic constipation possibly related to his intake of hydrocodone/acetaminophen as well as his low-dose fentanyl patch and poor mobility possibly poor hydration. She has been given lactulose which is probably adding to his bloating and I have discontinued this medication. His has had great success with enemas and magnesium citrate at home. I am going to see if we can get by using Linzess in addition to MiraLAX instead. Orders have been written we need to observe and see what effect he has with these medications. Certainly would like to stop the MiraLAX first if this ends up being a brisk response to the Linzess. 05/06/17--The patient just had a barium study done today, he is getting his MiraLAX, if he is not a had a bowel movement today at some point we might consider use of another dose of magnesium citrate tomorrow to help him flush out the barium. He has a history of chronic constipation. 05/07/17--observing for present time. 05/08/17--Continue observation, doubt that he will do much stooling until he is starting back on tube feeds. 05/09/17--The patient is doing better with the MiraLAX twice daily and erythromycin. At this point given his diarrhea will cut back to once a day with MiraLAX. 05/10/17--observe constipation now that MiraLAX is down to 1 per day and Linzess is continuing. 05/11/17--Doing well on the Linzess and MiraLAX combination with one bowel movement per day. 05/24/17--The patient remains on Linzess at this time. He is requiring a BMS for loose stools, at this point I will go ahead and stop his MiraLAX which is only getting daily. 200 mL a stool is about average for most of us but we can improve the consistency to the point where he does not require BMS perhaps. 05/25/17--MiraLAX has been discontinued observe the patient on Linzess and with a Osmolite diet via PEG tube. Current Visit: Yes Gastroenterology - PN: Subj Interval history: No new complaints, patient remains on the ventilator and minimally responsive. Exam (Progress Note) - Constitutional Vitals: Period Temp Pulse Resp BP Sys/Ivey Pulse Ox Last 24 Hr 96.8 F-97.8 F 74-103 16-28 87-140/50-77 95-100 General appearance: mild distress - Head Head exam: Present: normocephalic - Eye Eye exam: Present: EOMI - Respiratory Respiratory exam: Present: clear to auscultation bilaterally. Absent: rhonchi, wheezes - Cardiovascular Cardiovascular exam: Present: regular rate and rhythm - GI/Abdominal GI/Abdominal exam: Present: distended, soft. Absent: guarding, tenderness, rebound - Extremities Exam Extremities exam: Present: edema - Neurological Exam Neurological exam: Present: altered (Patient's eyes open to loud noises it is unclear how alert he is) - Psychiatric Psychiatric exam: Present: flat affect - Skin Skin exam: Present: warm Results - Labs CBC & BMP: 05/23/17 04:31 05/23/17 07:12 Specialty Discharge - Follow Up or Referrals Follow up with: Bala Ramírez MD [Primary Care Provider] - 1 Week (Needs appt with Dr. Wilson office for pt to be seen within 1 week of discharge date.)
--- NOTE | 2017-05-25 12:58 | Anesthesia Post-Op ---
Anesthesia Post OP - Post Ansesthetic Evaluation Patient seen in post op: Yes Resp: other CV: within normal limits Mental: other Temp: within normal limits Bimq-Eq-Pmthqbign: within normal limits Nausea and Vomiting: within normal limits Pain: within normal limits Other:: patient is in the unit on vent,, stable
[2017-05-25] MEDS: LIDOCAINE 5% PATCH TRANSDERM SCH (13:31)
[2017-05-25] MEDS: FUROSEMIDE 20 MG/2 ML VIAL IV SCH (13:31)
[2017-05-25] MEDS: THIAMINE 100 MG TABLET PO SCH (13:32)
[2017-05-25] MEDS: POTASSIUM CHLORIDE 20 MEQ PACK PO SCH (13:32)
[2017-05-25] MEDS: FOLIC ACID 1 MG TABLET PO SCH (13:32)
[2017-05-25] MEDS: LINACLOTIDE 145 MCG CAPSULE PO SCH (13:33)
[2017-05-25] MEDS: MULTIVITAMIN (CENTRUM) TABLET PO SCH (13:33)
[2017-05-25] MEDS: ASCORBIC ACID 500 MG TABLET PO SCH (13:33)
[2017-05-25] MEDS: PANTOPRAZOLE 40 MG TABLET PO SCH (13:33)
[2017-05-25] MEDS: LEVOTHYROXINE 100 MCG TABLET PO SCH (13:33)
[2017-05-25] MEDS: SPIRONOLACTONE 25 MG TABLET PO SCH ×2 (13:34→21:41)
[2017-05-25] MEDS: IMIPRAMINE 25 MG TABLET PO SCH (13:35)
[2017-05-25] MEDS: miSOPROStol 200 MCG TABLET PO SCH (13:35)
[2017-05-25] MEDS: POLYETHYLENE GLYCOL POWDER 17 GM PACK PO SCH (13:35)
[2017-05-25] MEDS: ZINC OXIDE PASTE 113 GM TUBE TOP SCH ×2 (13:36→21:41)
[2017-05-25] MEDS: BISOPROLOL 5 MG TABLET PO SCH (13:36)
[2017-05-25] MEDS: MUPIROCIN 2% OINT 22 GM TUBE TOP SCH ×2 (13:37→21:41)
[2017-05-25] MEDS: VANCOMYCIN INJ 1,750 MG in SODIUM CHLORIDE 0.9% 500 ML IV SCH (14:51)
[2017-05-25 18:38] VITALS: BP 106/65
[2017-05-25] MEDS: DILTIAZEM INJ 100 MG in SODIUM CHLORIDE 0.9% 100 ML IV SCH (21:15)
[2017-05-25] MEDS: PHENYLEPHRINE DRIP 40 MG/250 ML PREMIX IV SCH (21:15)
[2017-05-25] MEDS: MORPHINE 2 MG/1 ML SYRINGE IV PRN (21:41)
[2017-05-25] MEDS: CLORAZEPATE 3.75 MG TABLET PO SCH (21:41)
[2017-05-26] MEDS: ALBUTEROL/IPRATROPIUM 3 ML NEB RESP TX SCH ×2 (01:19→07:29)
[2017-05-26] MEDS: INSULIN LISPRO 100 UNIT/ML SUBCUT SCH ×3 (01:40→12:37)
[2017-05-26] MEDS: MORPHINE 2 MG/1 ML SYRINGE IV PRN (01:54)
[2017-05-26 02:53] LABS: Allen Test Positive; Pt O2 Delivery Device Ventilator
[2017-05-26 02:54] LABS: ABG Base Excess 4.9 MMOL/L (-2.5-2.5); ABG HCO3 31.7 MMOL/L (20-26); ABG Oxygen Saturation 98.1 % (95-100); ABG PCO2 59.8 MM HG (35-48); ABG PH 7.342 (7.35-7.45); ABG PO2 158.7 MM HG (80-95); ABG TCO2 33.5 MMOL/L (23-27)
[2017-05-26 05:09] LABS: Basophils # 0.1 10*3/uL (0.0-0.2); Basophils % 0.9 % (0.0-0.8); Eosinophils # 0.3 10*3/uL (0.0-0.87); Eosinophils % 4.7 % (0.00-10.9); Hematocrit 28.9 VOL% (42.0-52.0); Immature Granulocytes % 1.7 %; Immature Granulocytes Absolute 0.11 #; Lymphocytes # 0.9 10*3/uL (1.4-4.0); Lymphocytes % 13.4 % (21.2-54.2); Mean Corpuscular HGB Conc 31.1 GM/DL (32-36); Mean Corpuscular Hemoglobin 33 PG (27-34); Mean Corpuscular Volume 104.3 FL (87-102); Mean Platelet Volume 11.2 FL (9.6-12.0); Monocytes # 0.8 10*3/uL (0.11-0.8); Neutrophils # 4.3 10*3/uL (1.4-7.4); Neutrophils % 67.3 % (38.7-73.9); Platelet Count 244 T/CUMM (130-400); Red Blood Count 2.77 MC/CUMM (3.8-5.5); Red Cell Distribution Width 13.2 % (9.3-17.3); White Blood Count 6.4 T/CUMM (4-12)
[2017-05-26 05:33] LABS: Calcium 8.5 MG/DL (8.5-10.1); Potassium 3.9 MMOL/L (3.5-5.1)
[2017-05-26 05:38] LABS: Anisocytosis 1+; Eosinophils 4 % (0-10); Lymphocytes 12 % (20-55); Macrocytosis 1+; Platelet Estimate Normal; Segmented Neutrophils 72 % (50-85); Total Cells Counted 100
[2017-05-26] MEDS: LINACLOTIDE 145 MCG CAPSULE PO SCH (06:30)
[2017-05-26] MEDS: LEVOTHYROXINE 100 MCG TABLET PO SCH (06:36)
--- NOTE | 2017-05-26 06:43 | Gastrointestinal Progress Note ---
Assessment and Plan (1) Dysphagia, pharyngoesophageal Status: Acute Assessment and plan: This patient may have reflux in association with his chronic inability to change his position and remain upright. There may be reflux induced by a hypomotility the GI tract as well. It is possible that esophageal stricturing may be occurring as a result of impingement on the esophagus by bridging osteophytes from his fairly severe ankylosing spondylitis as well. I will have the patient undergo a barium swallow to evaluate this tomorrow and will plan on doing upper endoscopy with potential dilation to follow on Monday morning. I will leave him off of his anticoagulation for at least one day prior to the endoscopy to occur on Monday. In the interim we will go ahead and place the patient on pantoprazole IV twice daily to see if this helps out with his appetite. Will also add some medications colonic flow and decrease his bloating by getting rid of the lactulose. Risks of the above endoscopy include but are not limited to: Bleeding, infection, perforation, cardiac and pulmonary compromise. These were discussed with the patient, his , and son and they agreed to proceed with upper endoscopy to occur on Monday. 05/06/17--the patient's barium swallow fails to show any impingement upon the esophagus, overall the esophagus was narrowed there was no evidence of cancer nor dominant stricture noted. He is remaining off of anticoagulation in order to proceed with upper endoscopy to occur on Monday. I anticipate being able to do his dilation at that time. He is somewhat less bloated after discontinuing the lactulose. 05/07/17--We will check the patient's ammonia level since he was previously on lactulose and this has now been discontinued using MiraLAX and in its lieu. 05/08/17--findings at upper endoscopy today were as follows: No gross evidence of dominant stricture however the patient's upper esophagus did have a slight narrowing that was dilated to 57 [place] by single pass Savary dilator with replacement of NG tube at the end of the case endoscopically. There was a sizable hiatal hernia noted and LA class B esophagitis. Stomach was J-shaped and had a diffuse gastritis noted, biopsies were taken, a dilated duodenum was also noted with biopsies taken here as well for sprue. Suggest holding off on restarting tube feeds until after the bronchoscopy is completed tomorrow. Will initiate erythromycin via the NG tube now that this is confirmed in the stomach endoscopically. 05/09/17--The bronchoscopy is been completed and the patient is now getting tube feeds at 35 mL/h. We will continue to watch and see what his residuals look like although this will be harder check with a Dobbhoff feeding tube. He remains on erythromycin 250 mg every 6 hours to help with his motility. He is starting to step up his diarrhea and I will ramp down on his MiraLAX as a result. 05/10/17--Doing well on the erythromycin. Patient has minimal residuals on 60 mL /h. Residuals are quite low at this point. Stools are doing adequately--one bowel movement a day and of the MiraLAX is been cut back. We will need to continue to watch this. 05/11/17--0 residuals on the erythromycin with tube feeds running at 60 mL/h which equals his goal rate. We do not know how well he responded to the dilation but this was performed several days ago. The patient is noted to have esophagitis which is responding to the Protonix. His stools are now down to 1 per day on the combination of Linzess and MiraLAX. From a GI standpoint this patient is doing very well. Once he wakes up enough to be able to swallow we can switch him over to oral erythromycin pills to maintain his emptying. He should be able to swallow better post dilation as well. I am going on vacation at this time and will sign off of the case. Please contact my partners if other issues arise. 05/24/17--The patient is seen again today in order to place PEG tube due to underlying dysphagia and need for tube feeds. He is about to go over to [facility] in the near future for continued weaning and already has a tracheostomy placed several days ago by Dr. Jose Covarrubias. Provided his agrees we will go ahead and place PEG tube tomorrow morning. The patient is no longer on erythromycin and appears to have good emptying from his stomach with low residuals on 60 mL/h Osmolite. 05/25/17--PEG tube placed without difficulty, the previously noted esophagitis is completely healed. Patient does have some mild residual gastritis and a dilated duodenum. From a GI standpoint he is good for transfer. 05/26/17--PEG tube with low residuals from feeding, the previously noted esophagitis is completely healed at this point. He can certainly be transferred to [facility] from a GI standpoint. Continue Linzess plus minus MiraLAX as needed to induce bowel movements. This patient has a tendency towards constipation the past. Thank you for allowing me to see this patient again I think he will do well on the erythromycin in the short-term. The emptying from the stomach seemed adequate yesterday on upper endoscopy. Current Visit: Yes (2) Abnormal weight loss Status: Acute Assessment and plan: For the past year the patient states that his weight has dropped from 275 pounds to 229 pounds. He states that while some of this is volitional some of it is certainly not and he is only been able to eat about 10% of his trays while here. He does not have the sensation of reflux. His difficulty with swallowing is overcome by chewing his food extremely carefully and following bites with clear liquids in between. This only occurs with solids and is highly suspicious for a physical stricture versus cancer. Again a barium swallow is being arranged for tomorrow--not only will this look for physical stricture but also assess for spinal impingement and dysmotility at the same time. 05/06/17--No new complaints, awaiting upper endoscopy Monday. 05/07/17--we will arrange for upper endoscopy Monday, tomorrow in order to look for evidence of the cause for his weight loss and consider doing dilation at the same time 05/08/17--We Will see how he is able to swallow later after he is off the ventilator. The patient has no gross evidence of an obstruction but does have dilation of the duodenum possibly pointing to a GI hypomotility. 05/09/17--Tube feedings been started, observe residuals. This patient will have a tendency towards ileus, hence the start of the erythromycin. 05/10/17--Continue tube feeds, observe for residuals, continue erythromycin. 05/11/17--As noted above, will sign off the case, please contact my partners if other issues arise in my absence. 05/24/17--Weight loss has stabilized. Patient is being given a PEG tube for long- term nutritional intake, medication intake and hydration. 05/25/17--PEG tube is been placed today and should last for some time. I doubt this patient will need a abdominal binder but this could certainly be placed as well. 05/26/17--PEG tube functioning adequately after being placed on 05/25/17. Observe weight gain over time. Current Visit: Yes (3) Macrocytic anemia Status: Acute Assessment and plan: May be related to B12 or folate deficiency versus alcohol intake versus myelodysplastic syndrome. His platelet level is normal I do not believe this is cirrhosis-related. 05/07/17--B12 and folate levels were completely normal. This leaves myelodysplastic syndrome versus cirrhosis is potential causes for the patient's macrocytic chronic anemia 05/08/17--as noted above 05/09/17--Patient does have some mild upper GI bleeding, will continue to observe. 05/10/17--as noted above--repeat CBC not checked yet. 05/11/17--The patient's hematocrit is stable at 30.9%. Continue watching on Protonix to protect him from his esophagitis. Switch this over to oral pills once the patient is able swallow again routinely. 05/24/17 --Patient's hematocrit is now 29.7 not significantly different from one seen before. He briefly had a macrocytic anemia but this appears to have improved with current MCV at 99.3 and platelets of 305 as of 05/23/17. 05/25/17--as noted above. 05/26/17--stable with today's hematocrit 28.9%. Current Visit: Yes (4) Chronic constipation Status: Acute Assessment and plan: This patient does have chronic constipation possibly related to his intake of hydrocodone/acetaminophen as well as his low-dose fentanyl patch and poor mobility possibly poor hydration. She has been given lactulose which is probably adding to his bloating and I have discontinued this medication. His has had great success with enemas and magnesium citrate at home. I am going to see if we can get by using Linzess in addition to MiraLAX instead. Orders have been written we need to observe and see what effect he has with these medications. Certainly would like to stop the MiraLAX first if this ends up being a brisk response to the Linzess. 05/06/17--The patient just had a barium study done today, he is getting his MiraLAX, if he is not a had a bowel movement today at some point we might consider use of another dose of magnesium citrate tomorrow to help him flush out the barium. He has a history of chronic constipation. 05/07/17--observing for present time. 05/08/17--Continue observation, doubt that he will do much stooling until he is starting back on tube feeds. 05/09/17--The patient is doing better with the MiraLAX twice daily and erythromycin. At this point given his diarrhea will cut back to once a day with MiraLAX. 05/10/17--observe constipation now that MiraLAX is down to 1 per day and Linzess is continuing. 05/11/17--Doing well on the Linzess and MiraLAX combination with one bowel movement per day. 05/24/17--The patient remains on Linzess at this time. He is requiring a BMS for loose stools, at this point I will go ahead and stop his MiraLAX which is only getting daily. 200 mL a stool is about average for most of us but we can improve the consistency to the point where he does not require BMS perhaps. 05/25/17--MiraLAX has been discontinued observe the patient on Linzess and with a Osmolite diet via PEG tube. 05/26/17--He is doing well off of MiraLAX--watch for further bowel movement output --may need to restart the MiraLAX. Current Visit: Yes Gastroenterology - PN: Subj Interval history: Patient with low residuals otherwise doing fairly well with his new PEG tube. The patient himself seems minimally interactive/stoic. He does not follow commands Exam (Progress Note) - Constitutional Vitals: Period Temp Pulse Resp BP Sys/Ivey Pulse Ox Last 24 Hr 96.8 F-98.3 F 74-109 16-36 87-140/50-84 95-100 General appearance: no acute distress - Head Head exam: Present: normocephalic - Eye Eye exam: Present: EOMI - Respiratory Respiratory exam: Present: clear to auscultation bilaterally - Cardiovascular Cardiovascular exam: Present: regular rate and rhythm - GI/Abdominal GI/Abdominal exam: Present: normal bowel sounds, distended, soft, other (PEG tube site shows hub at 2 cm, no erythema no drainage, PEG tube spins well). Absent: tenderness, rebound - Extremities Exam Extremities exam: Present: edema (+2 pitting edema of extremities) - Neurological Exam Neurological exam: Present: altered (Somnolent, confused, not following commands ) - Psychiatric Psychiatric exam: Present: flat affect - Skin Skin exam: Present: warm Results - Labs CBC & BMP: 05/26/17 04:00 05/26/17 04:00 Specialty Discharge - Follow Up or Referrals Follow up with: Bala Ramírez MD [Primary Care Provider] - 1 Week (Needs appt with Dr. Wilson office for pt to be seen within 1 week of discharge date.)
[2017-05-26] MEDS: PROPOFOL 1,000 MG/100 ML BOTTLE IV SCH (08:20)
--- NOTE | 2017-05-26 08:40 | XRay Report ---
Portable chest Exam date: 05/26/2017 4:00 AM Indication: Shortness of breath, cough respiratory failure Comparison: Previous day at 0332 hours Findings: Cardiomediastinal contours are stable with no change in tube or line placement. No change in the pulmonary edema pattern with some degree of improvement in the bilateral lower lobe pleural and parenchymal densities. No acute osseous abnormalities. Visualized upper abdomen demonstrates no acute pathology. Impression: 1. No change in the pulmonary edema pattern 2. Improvement in the basilar pleural and parenchymal opacities PROCEDURE INTERPRETED AT [facility] ([facility] DEPARTMENT OF RADIOLOGY Final Report Signed by: Bladimir Charles
[2017-05-26] MEDS: SPIRONOLACTONE 25 MG TABLET PO SCH (08:59)
[2017-05-26] MEDS: FOLIC ACID 1 MG TABLET PO SCH (08:59)
[2017-05-26] MEDS: ASCORBIC ACID 500 MG TABLET PO SCH (08:59)
[2017-05-26] MEDS: THIAMINE 100 MG TABLET PO SCH (08:59)
[2017-05-26] MEDS: MULTIVITAMIN (CENTRUM) TABLET PO SCH (08:59)
[2017-05-26] MEDS: miSOPROStol 200 MCG TABLET PO SCH (08:59)
[2017-05-26] MEDS: PANTOPRAZOLE 40 MG TABLET PO SCH (08:59)
[2017-05-26] MEDS: IMIPRAMINE 25 MG TABLET PO SCH (09:00)
[2017-05-26] MEDS: BISOPROLOL 5 MG TABLET PO SCH (09:00)
[2017-05-26] MEDS: POLYETHYLENE GLYCOL POWDER 17 GM PACK PO SCH (09:00)
[2017-05-26] MEDS: POTASSIUM CHLORIDE 20 MEQ PACK PO SCH (09:00)
[2017-05-26] MEDS: LIDOCAINE 5% PATCH TRANSDERM SCH (09:11)
[2017-05-26] MEDS: FUROSEMIDE 20 MG/2 ML VIAL IV SCH (09:11)
[2017-05-26] MEDS: MUPIROCIN 2% OINT 22 GM TUBE TOP SCH (09:16)
[2017-05-26] MEDS: VANCOMYCIN INJ 1,750 MG in SODIUM CHLORIDE 0.9% 500 ML IV SCH (09:24)
--- NOTE | 2017-05-26 09:37 | Discharge Summary ---
Hospital Course - Hospital Course Hospital Course: Discharge diagnosis: Acute respiratory failure Urinary tract infection with sepsis MRSA pneumonia Ankylosing spondylitis Atrial arrhythmia COPD The patient presented to the hospital with a COPD exacerbation and ended up on the ventilator. He also had a urinary tract infection with sepsis, and was given 2 weeks of antibiotics for treatment of a resistant E. coli. Time on the ventilator was a prolonged course, and he required tracheostomy. During the course of ventilation, bronchoscopy specimens revealed MRSA, and he was treated as an MRSA pneumonia. Tube feedings were started. He also required PEG tube placement. He is chronically debilitated from his ankylosing spondylitis, had actually been living in a fci prior to admission. Once the tracheostomy and PEG tube were inserted, the patient's condition was stabilized such that he cannot be transferred to an LTAC for ventilator weaning. Medication reconciliation has been performed. Tube feedings for nutrition. Mobilization as prescribed by physical therapy. This note was completed using [employer] voice recognition software. 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 Diagnosis - Discharge Diagnosis (1) UTI (urinary tract infection) Status: Acute Specialty Discharge - Follow Up or Referrals Follow up with: Bala Ramírez MD [Primary Care Provider] - 1 Week (Needs appt with Dr. Wilson office for pt to be seen within 1 week of discharge date.) Discharge Plan - Discharge Data Disposition: Disch/Xfer to Financial Services Director [facility] Condition at Discharge: Stable Discharge Diet: other (Tube feeding) Activity: as per physical therapy - Discharge Medications New acetaZOLAMIDE INJ [Diamox Inj] 250 mg IV Q12H vial Albuterol Neb [Proventil Neb] 1.25 mg RESP TX RT Q4H PRN PRN Reason: Shortness Of Breath/Wheezing Clorazepate [Tranxene] 3.75 mg PO BEDTIME tablet Dextrose 50% [D50] 25 gm IV PRN PRN syringe PRN Reason: Hypoglycemia with IV access Enoxaparin [Lovenox] 40 mg SUBCUT Q24H syringe Glucagon 1 mg IM PRN PRN vial PRN Reason: Hypoglycemia w/o IV access Heparin Lock Flush 50 units IV PRN PRN syringe PRN Reason: central line lock Insulin Lispro [HumaLOG] See Protocol SUBCUT Q6HR unit LORazepam INJ [Ativan Inj] 0.5 mg IV Q2H PRN vial PRN Reason: Agitation Magnesium Sulf Georges [Magnesium Sulfate Inj] 2 gm IV .PER PROTOCOL PRN PRN Reason: Per Protocol Magnesium Sulf Georges [Magnesium Sulfate Inj] 4 gm IV .PER PROTOCOL PRN PRN Reason: Per Protocol Mupirocin 2% Oint [Bactroban 2% Oint] 1 applic TOP BID applic Ondansetron Inj [Zofran Inj] 4 mg IV Q4H PRN vial PRN Reason: Nausea Pantoprazole Tab [Protonix Tab] 40 mg PO DAILY tablet Potassium Chloride Packet 40 meq PO DAILY Potassium Chloride Georges 10 meq IV .PER PROTOCOL PRN PRN Reason: Per Protocol Vancomycin Inj 1,750 mg IV Q18H vial Zinc Oxide Paste [Desitin Paste] 1 applic TOP BID applic Albuterol/Ipratropium Neb [Duoneb] 3 ml RESP TX RT Q6H Furosemide Inj [Lasix Inj] 20 mg IV Q24H vial Linaclotide [Linzess] 290 mcg PO AC BREAKFAST capsule Morphine Inj 1 mg IV Q3H PRN syringe PRN Reason: Pain Severe (8-10) Polyethylene Glycol Powder [Miralax] 17 gm PO DAILY Spironolactone [Aldactone] 25 mg PO BID tablet Continue Imipramine HCl 25 mg PO DAILY Levothyroxine Tab [Synthroid Tab] 100 mcg PO DAILY Folic Acid Tab 1 mg PO DAILY tablet Lidocaine 5% Patch [Lidoderm 5% Patch] 1 patch TRANSDERM DAILY patch miSOPROStol [Cytotec] 200 mcg PO DAILY tablet Thiamine Tab [Vitamin B1 Tab] 100 mg PO DAILY tablet Ascorbic Acid Tab [Vitamin C Tab] 500 mg PO DAILY Lactulose Liquid [Chronulac] 30 ml PO BID HYDROcodone/ACETAMIN 5-325 [Richland 5-325] 1 tablet PO Q8H PRN #90 tablet PRN Reason: Pain Moderate (4-7) Skin Healing Oint (Aquaphor) [Aquaphor] 1 applic TOP PRN PRN applic PRN Reason: Dry Skin fentaNYL 12 MCG/HR PATCH [Duragesic 12 Patch] 1 patch TRANSDERM Q3DAY Theophylline ER Tab 300 mg PO Q12H Bisoprolol [Zebeta] 5 mg PO DAILY tablet Multivitamin (Centrum) [Centrum Tab] 1 tablet PO DAILY tablet Discontinued Bisacodyl Tab [Dulcolax Tab] 5 mg PO DAILY PRN PRN Reason: Constipation Clorazepate [Tranxene] 3.75 mg PO BEDTIME Albuterol Sulfate [Albuterol Neb] 2.5 mg RESP TX TID - Follow Up or Referral Follow Up: Bala Ramírez MD [Primary Care Provider] - 1 Week (Needs appt with Dr. Wilson office for pt to be seen within 1 week of discharge date.) - Forms/Instructions Exam - Constitutional Vitals: Period Temp Pulse Resp BP Sys/Ivey Pulse Ox Last 24 Hr 97.3 F-98.3 F 74-115 16-36 87-138/50-84 95-100 Vital signs are noted above. Heart is irregular. He appears to have multifocal atrial tachycardia on the monitor. He has a few rhonchi in the chest. Legs are bandaged, and he has some peripheral edema. He is awake and looks around. Discharge Results Procedures and tests throughout hospitalization: Pending Orders 05/09/17 AFB Culture/Smears Stat Fungal Culture w/ Prep Stat 05/10/17 10:57 Cytology Request Routine 05/10/17 16:58 AFB Culture/Smears Routine Fungal Culture w/ Prep Routine 05/17/17 AFB Culture/Smears Stat Fungal Culture w/ Prep Stat 05/17/17 18:45 Fungal Culture w/ Prep Stat 05/19/17 Fungal Culture w/ Prep Stat Labs on day of discharge: Labs from last 24 hours 05/26/17 05/26/17 05/26/17 06:11 04:00 04:00 WBC 6.4 D RBC 2.77 L Hgb 9.0 L Hct 28.9 L MCV 104.3 H MCH 33 MCHC 31.1 L RDW 13.2 Plt Count 244 MPV 11.2 Neut % (Auto) 67.3 Lymph % (Auto) 13.4 L Aiken % (Auto) 12.0 Eos % (Auto) 4.7 Baso % (Auto) 0.9 H Neut # (Auto) 4.3 Lymph # (Auto) 0.9 L Aiken # (Auto) 0.8 Eos # (Auto) 0.3 Baso # (Auto) 0.1 Total Counted 100 Immature Gran % 1.7 Nucleated RBC % 0.0 Immature Gran # 0.11 Segmented Neutrophils 72 Lymphocytes 12 L Monocytes 12 Eosinophils 4 Nucleated RBCs # 0.00 Platelet Estimate Normal Immature Plt Fraction 0.0 Anisocytosis 1+ Macrocytosis 1+ ABG pH ABG pCO2 ABG pO2 ABG HCO3 ABG Total CO2 ABG O2 Saturation ABG Base Excess FiO2 Sodium 143 Potassium 3.9 Chloride 106 Carbon Dioxide 34 H Anion Gap 6.9 BUN 8 Creatinine 0.30 L GFR Calculation 201 BUN/Creatinine Ratio 26.00 H Glucose 134 H POC Glucose 136 H Calculated Osmolality 284.0 Calcium 8.5 Magnesium 2.0 B-Natriuretic Peptide 05/26/17 05/26/17 05/25/17 02:30 00:40 17:40 WBC RBC Hgb Hct MCV MCH MCHC RDW Plt Count MPV Neut % (Auto) Lymph % (Auto) Aiken % (Auto) Eos % (Auto) Baso % (Auto) Neut # (Auto) Lymph # (Auto) Aiken # (Auto) Eos # (Auto) Baso # (Auto) Total Counted Immature Gran % Nucleated RBC % Immature Gran # Segmented Neutrophils Lymphocytes Monocytes Eosinophils Nucleated RBCs # Platelet Estimate Immature Plt Fraction Anisocytosis Macrocytosis ABG pH 7.342 L ABG pCO2 59.8 H ABG pO2 158.7 H ABG HCO3 31.7 H ABG Total CO2 33.5 H ABG O2 Saturation 98.1 ABG Base Excess 4.9 H FiO2 50.00 Sodium Potassium Chloride Carbon Dioxide Anion Gap BUN Creatinine GFR Calculation BUN/Creatinine Ratio Glucose POC Glucose 116 H 117 H Calculated Osmolality Calcium Magnesium B-Natriuretic Peptide 05/25/17 05/25/17 10:50 10:03 WBC RBC Hgb Hct MCV MCH MCHC RDW Plt Count MPV Neut % (Auto) Lymph % (Auto) Aiken % (Auto) Eos % (Auto) Baso % (Auto) Neut # (Auto) Lymph # (Auto) Aiken # (Auto) Eos # (Auto) Baso # (Auto) Total Counted Immature Gran % Nucleated RBC % Immature Gran # Segmented Neutrophils Lymphocytes Monocytes Eosinophils Nucleated RBCs # Platelet Estimate Immature Plt Fraction Anisocytosis Macrocytosis ABG pH 7.308 L ABG pCO2 58.4 H ABG pO2 134.0 H ABG HCO3 26.1 H ABG Total CO2 27.1 H ABG O2 Saturation 98.6 ABG Base Excess 1.9 FiO2 Sodium Potassium Chloride Carbon Dioxide Anion Gap BUN Creatinine GFR Calculation BUN/Creatinine Ratio Glucose POC Glucose Calculated Osmolality Calcium Magnesium B-Natriuretic Peptide 194 H Preliminary micro results at discharge 05/19/17 Unknown Fungal Culture - Preliminary Bronchial Madi Lavage Yeast 05/17/17 18:45 Fungal Culture - Preliminary Bronchial Madi Lavage 05/17/17 Unknown Fungal Culture - Preliminary Bronchial Madi Lavage Yeast 05/10/17 16:58 Fungal Culture - Preliminary Pleural Fluid No Fungus isolated at 2 weeks 05/09/17 Unknown Fungal Culture - Preliminary Bronchial Madi Lavage Jane tropicalis 05/10/17 16:58 Mycobacterial Culture - Preliminary Pleural Fluid No AFB isolated at 1 week 05/09/17 Unknown Mycobacterial Culture - Preliminary Bronchial Madi Lavage No AFB isolated at 1 week DS: Provider Date of admission: 05/04/17 02:08 Primary care physician: Bala Ramírez MD Attending physician on admission: Brennan Donald MD Consults: 05/04/17 02:12 Consult to Physician [CONS] Routine Comment: patient known to you Consulting Provider: Hua Simons Consult to Specialist Group: Pulmonology Consult Notification Comment: DR. SIMONS IS ON VACATION...HAD TO CONSULT DR Corado ([facility]) FOR SURGERY AND I SPOKE TO SIMON. 05/04/17 02:13 Consult to Physician [CONS] Routine Comment: patient of yours with pleural effusion Consulting Provider: Bala Ramírez Consult to Specialist Group: Pulmonology When should Consulting Provider be notified: In am 05/04/17 04:07 Consult to Dietitian [CONS] Routine Reason for Dietitian: Other Consult Comment: admission assessment 05/04/17 09:40 Consult to Physician [CONS] Routine Comment: known to you; wants to wean off meds Consulting Provider: Abel Patel Person Notified: ISRA Date Notified: 05/04/17 Time Notified: 10:04 05/04/17 10:29 Consult to Physician [CONS] Routine Comment: AMS Consulting Provider: Shahzad Thacker Person Notified: FRANCESCO Date Notified: 05/04/17 Time Notified: 10:30 05/05/17 11:00 Consult to Physical Therapy [CONS] Routine Reason for Physical Therapy: Evaluate and Treat Weakness 05/08/17 05:00 Consult to Anesthesiology [CONS] Routine Consulting Provider: Reason for Anesthesiology: Pre-op Clearance 05/09/17 10:20 Consult to Dietitian [CONS] Routine Reason for Dietitian: TF-Initiate/Manage 05/09/17 11:50 Consult to Physician [CONS] Routine Comment: pacemaker, a-fib, recent pulm HTN Consulting Provider: Cardiology - [facility] 05/12/17 10:53 Consult to Pharmacy [CONS] Routine Reason for Pharmacy Consult: Dose/Manage Vancomycin 05/17/17 11:25 Consult to Case Mgmt/Social Srvs [CONS] Routine Reason for Case Mgmt/Social Srvs: LTAC 05/17/17 19:13 Consult to Physician [CONS] Routine Comment: elective trach Consulting Provider: Jose Covarrubias When should Consulting Provider be notified: In am When should Consulting Provider be notified: In am Person Notified: Judith Date Notified: 05/18/17 Time Notified: 08:43 Consult Notification Comment: will notify Dr. Covarrubias 05/24/17 09:30 Consult to Physician [CONS] Routine Comment: [facility] placement Consulting Provider: Marek Wu 05/24/17 10:43 Consult to Physician [CONS] Routine Comment: For possible acceptance to [facility] Consulting Provider: Marek Wu 05/24/17 11:45 Consult to Physician [CONS] Routine Comment: peg placement Consulting Provider: Khoa Reddy Consult to Specialist Group: Gastroenterology 05/25/17 12:47 Consult to Dietitian [CONS] Routine Reason for Dietitian: TF-Initiate/Manage Consult Comment: Tube feeding recommendations Discharging clinician: Mikey Lazcano MD Expected date of discharge: 05/26/17
--- NOTE | 2017-05-26 10:26 | General Surgery Progress Note ---
Assessment and Plan (1) Chronic venous insufficiency Status: Chronic Assessment and plan: 05/15/2017. Patient remains on the ventilator at this time but very alert at this time. He continues to have some lower extremity swelling and the small blisters on the fourth and fifth toes are minimal at this time. I am little concerned about a blistering that is possible on the right heel at this time. Left looks in stable condition to this point. He is resting his legs on pillows and I am concerned this can create a problem. 05/26/2017 Swelling the lower extremities much improved and well controlled at this time. Dressing does need to be extended little higher at this point. May actually be able to transfer to ice sock of some sort. Current Visit: No (2) Decubitus ulcer of sacral region, stage 2 Status: Acute Assessment and plan: 05/26/2017. The area on the left buttocks I am not sure I can really call a true decubitus ulcer but if it was it would be a stage II at this time. It is pink with a good base to it but there is no DIP R did have depression associated with this area. Will maintain present care at this time. Current Visit: Yes (3) Decubitus ulcer of right heel, stage 2 Status: Acute Assessment and plan: 05/26/2017. Ulcer of the heel which is mostly a blister is still difficult to stage what the best would be a stage II. No necrotic looking tissue there and the skin is loose enough that it may be easily the peel-away at some point. Certainly keep it moist is most important thing at this time while we manage preventive care to the area also. Current Visit: Yes Subjective Patient reports: Present: no new complaints, other (Tube feeding and trach in place) Exam - Constitutional Vitals: Period Temp Pulse Resp BP Sys/Ivey Pulse Ox Last 24 Hr 97.3 F-98.3 F 74-115 16-36 87-127/50-84 95-100 General appearance: mild distress - Head Head exam: Present: normal inspection - ENT ENT exam: Present: normal exam - Neck Neck exam: Present: other (Tracheostomy tube in place) - Respiratory Respiratory exam: Present: rales, rhonchi - Cardiovascular Cardiovascular exam: Present: RRR - GI/Abdominal GI/Abdominal exam: Present: hypoactive bowel sounds, soft. Absent: tenderness - Extremities Exam Extremities exam: Present: other (Blistering of the right heel is minimal at this time and does not seem to have progressed. Blistering of the fourth toe seems like it is clearing up. No other ulcers of either foot or legs are present at this time. Swelling in the lower extremities are much improved.) - Back Exam Back exam: Present: other (Area on the left gluteal region really does not look any worse at this time. It is unusual in that it is pink at this time and raised and not a deep ulcer. Make you wonder about an abrasion or associated with this more than a deep decubitus ulcer) - Neurological Exam Neurological exam: Present: altered - Skin Skin exam: Present: normal color, warm, dry Results - Labs CBC & BMP: 05/26/17 04:00 05/26/17 04:00 Lab Results: I have reviewed the past 24 hour labs Quality Measures - Stroke Symptom Onset Unknown: No Specialty Discharge - Follow Up or Referrals Follow up with: Bala Ramírez MD [Primary Care Provider] - 1 Week (Needs appt with Dr. Wilson office for pt to be seen within 1 week of discharge date.)
[2017-05-26] MEDS: ZINC OXIDE PASTE 113 GM TUBE TOP SCH (11:32)
--- NOTE | 2017-05-26 13:36 | Pulmonology Progress Note ---
Pulmonary - PN: Subj Interval history: Mr. Fischer is a 66-year-old white male who we saw in initial pulmonary consultation on 05/04/2017. At that time, our impressions were: #1: Acute altered mental status most likely secondary to #2 but consider other causes #2: Acute urinary tract infection #3: Ankylosing spondylitis with probable spinal stenosis. Anatomy and pain limited mobility. #4: Peripheral sensory neuropathy. His symptoms have gradually worsened over time. #5: Chronic venous stasis of the lower extremities. #6: Vitamin B deficiency. #7: Past history of tobacco abuse #8: COPD/asthma #9: Past history of high blood pressure #10: Hypothyroidism #11: Bilateral pleural effusions of unknown etiology #12: Dual-chamber cardiac pacemaker #13: History of marijuana use #14: History of compression fractures with chronic pain. Now under the care of Dr. Patel. #15: See past history 05/05/2017. Patient was seen today along with his . The patient is awake, alert, and oriented this morning. His theophylline was discontinued per the 's request yesterday. Of note, his theophylline level was 7.9. He has been seen in pain management consultation with Dr. Patel. His note has been reviewed. We appreciate his assistance. He will be out of town for the next few days, but upon his return we will begin tapering the patient's pain medications as per his note. Patient's lower extremities continue to be edematous. We will give Mr. Keith a one-time dose of IV Lasix. We will start Zaroxolyn 5 mg p.o. daily and KCl 20 mEq daily. Daily BMP/magnesium has been ordered. The patient's echocardiogram this admission as read by Dr. Vega showed an estimated EF of 60%, approximately 1+ mitral and aortic regurgitation , 1-2+ tricuspid regurgitation with a right ventricular systolic pressure of 60 mmHg plus the right atrial pressure suggesting severe pulmonary hypertension. This is a significant change from the echocardiogram done 04/12/[address] Nova which showed an EF estimated at 60%, grade 1 diastolic dysfunction, normal to mildly elevated filling pressures, mild aortic valve regurgitation, moderate ventricular hypertrophy with no demonstrable increase in right-sided pressure, and tricuspid regurgitation velocity suggesting a right ventricular systolic pressure of 23 mmHg plus the right atrial pressure. On chest x-ray today, the pleural effusion is improved. This patient has great difficulty laying flat given his ankylosing spondylitis, so we will begin diuresing him with his Zaroxolyn and see if his pleural effusion will resolve rather than proceed with CT PE protocol at this time. We will repeat a chest x-ray on Monday. Doppler venograms showed no evidence of dizziness thrombophlebitis. Abdominal ultrasound showed no ascites. Medications have been reviewed. Labs have been reviewed. White count is 5900 with a normal differential; H&H 10.7/33.6; platelet count 172,000; creatinine 0.40, BUN 8, electrolytes are normal; magnesium 2.5 Microbiology has been reviewed. Urine culture has grown E. coli. He is on Fortaz and Levaquin. Urine drug screen was positive for benzodiazepines and cannabinoids 05/08/2017 during the weekend the patient deteriorated. He developed a severe acidosis and a markedly elevated PCO2 and required movement to CCU along with intubation mechanical ventilation. He is still on the ventilator.His chest x- ray shows bibasilar infiltrates and some faint infiltrates in the right upper lung. Still has a small right pleural effusion. This is unexpected and I have to wonder about aspiration. We will plan to evaluate with fiberoptic bronchoscopy in the morning. His only positive cultures E. coli from his urine. ABGs have been ordered but are pending. Potassium is low at 3.0 and the patient will be placed on protocol. Natruretic peptide is 92. H&H is 10.8/ 31.9. White count is 8674.4 segs 7 lymphs and 16.1 monocytes. EKG shows no acute changes. At this point I am not entirely clear why the patient deteriorated so rapidly. 05/09/2017. Today's chest x-ray is better. Patient has cardiomegaly. He has bilateral alveolar and interstitial changes and he has a small to moderate size right pleural effusion. He is alert and oriented and can cooperate. Earlier today I evaluated patient with fiberoptic bronchoscopy. See the report. He had some mild erosive slightly friable bronchitis in the right lower lung that had the appearance of a recent pneumonia. This may be the etiology of his pleural effusion. The patient had only a small amount of sputum and both bronchial trees. I did not see any food or gastric content. Today the patient will go to stage II of his weaning protocol. The only positive culture is E. coli from the urine. ABGs on mechanical ventilation FiO2 40% shows a pH of 7.52 , PCO2 41.4, PO2 of 84.1 and a bicarb of 32.8. H&H is gradually dropping to 10.3/29.3. White count is 8276 segs and platelets are 141,000. Potassium is low at 3.2 and is being replaced. Theophylline level is 7.4. Last night the patient had atrial fib that required Cardizem and amiodarone. The patient's most recent echocardiogram (05/04/2017) showed pulmonary artery pressure above 70 whereas a month or so ago his pulmonary artery pressures were normal. We will repeat this today. Cardiology is seeing the patient in the past and placed cardiac pacemaker. Will last for follow-up evaluation. Also we have asked that his magnesium be checked. 05/10/2017. Patient's on stage III of the weaning protocol. Because of his anatomy chest x-ray is difficult to interpret. He has old pleural scarring on the right where he has had a previous pleural stripping. He has persistent pleural effusion on the right. Etiology of this is undetermined. His echocardiogram does not support congestive heart failure. He has no ascites on ultrasound of the abdomen. I discussed the possibility of thoracentesis by interventional radiologist with the and she is agreeable. We should send pleural fluid specimens for cytology, H&H, white blood cell count with differential, total protein, SGOT, LDH, Gram stain with bacterial culture, AFB stains and cultures. 05/15/2017. Patient is alert and oriented. His chest x-ray is better. His ABGs better. His lab is stable. He has been extubated today. Follow-up ABGs are pending. Findings and intentions were discussed with the patient's . Tuan Philip nurse practitioner was present 05/18/2017. Patient was bronchoscoped yesterday morning did well and suddenly developed a respiratory arrest followed by a short period of asystole on the night of 05/17/2017. He was intubated and I did an emergency bronchoscopy. His problem is retention of secretions were much more than I expected. This is slightly complicated by gastroesophageal reflux. Patient is going to need a trach. His is agreeable. ENT consultation is pending. Chest x-ray is stable today and ABGs are stable. He has has woken up and is been wide awake. 05/20/2017. On 05/19/2017 the patient had a trach placed. Dr. moreira's operative note is been reviewed. This was a long trach and ended 1-2 cm proximal to the carolyn. On the patient's chest x-ray he is flexed forward and the distal trachea appears to abut against the carolyn. I suspect this is why we are having problem passing the suction tube beyond the end of the trach. Methicillin-resistant staph aureus was grown from the patient's bronchoalveolar lavage is on 05/17/2017. ABGs on FiO2 of 50% mechanical ventilation show pH 7.312, PCO2 50 four-point, PO2 122 and a bicarb of 25 potassium is low normal at 3.5 H&H is stable. White count is stable. Vancomycin trough is 18.8. This is being managed by pharmacology 05/21/2017. ENT note is reviewed. Looks like to me on chest x-ray the tip of the patient's trach tube abuts against the carolyn and I suspect this is why cannot be suctioned. I have not bronchoscoped the patient. I will probably need to bronchoscope him soon for retention of secretions. His chest x-ray however is better pleural effusion on the right is improved and the atelectasis at the bases has improved. Oxygenation is adequate patient does have some hypercarbia. Electrolytes are normal. Creatinine 0.2 BUN is 8. CBC is stable. Vancomycin trough level is 21.5. Pharmacology is managing and adjusting this. Last bronchoscopy specimens from 05/17/2017 are growing methicillin-resistant staph aureus. 05/22/2017. Hopefully Dr. moreira will be back tomorrow. The trachea is not functioning well. By the x-ray of appearance it looks like it abuts against the carolyn. This is exacerbated by the patient's thoracic kyphosis. When we straighten him up and helps a little but he still cannot be suction. He was scoped by ENT highway traffic control technician this weekend. His note is not tell me what was wrong. The patient is beginning to get bibasilar atelectasis secondary to sputum retention. His oxygenation is acceptable at this time. Talked to his this morning. She is talking about taking him home to hospice. I told her I think we can get trach to function better than it is now and that we can do whatever she likes but probably should consider [facility] long-term acute care. I have asked the staff to feed the patient and hold his feedings at about 3:00 tonight and later on check his stomach for residual. ABGs on mechanical ventilation FiO2 50% shows a pH 7.246, PCO2 of 57.5, PO2 of 198 and a bicarb of 22.5. Electrolytes are normal. Creatinine is 0.3 BUNs 10 CBC is stable. Bronchoalveolar lavages from 05/19/2017 are growing methicillin-resistant staph 05/23/2017. This morning the patient had fiberoptic bronchoscopy. He had a good bit of retained secretions. He is previously grown methicillin-resistant staph aureus and he was recultured. His trach tube looks fine. A few ventilator adjustments have been made and the patient now tolerates tidal volume of 450 cc with a peak pressure less than 30. He does not leak any air around his trach. His chest x-ray shows bibasilar atelectasis. Pleural fluid is come under good control. ABGs on mechanical ventilation FiO2 50% shows a pH 7.32, PCO2 51.6, PO2 150 and a bicarb of 24.2 H&H is dropped to 9.7/29.7. White blood cell count is 9200 and platelets of 304,000. Vancomycin is being managed by pharmacology. If things continue on her present course this patient could be ready for long-term acute care before the end of the week. 05/24/2017. Patient's done very well with his trach and mechanical ventilation. He is doing better on CPAP trials. His ABGs on mechanical ventilation FiO2 50% shows a pH 7.35, PCO2 53.2, PO2 of 145.8 and a bicarb of 28.7. This patient has an Keofeed feeding tube. Prior to his present status he was having some problems swallowing Dr. Reddy was seen in the head of and had placed him on erythromycin. I suppose we might consider a PEG tube. This patient is ready for long-term acute care and I am going to consult Dr. Marek Wu to see if he will accept this patient at [facility]. The patient has a staph aureus infection is on vancomycin which is being managed by pharmacology. 05/25/2017. Patient's for PEG tube today. He is beginning to get a little bit of pleural effusion.His natruretic peptide is only 194. ABGs on CPAP showed pH of 7.308, PCO2 58.4, PO2 134 and a bicarb of 26.1. Patient is on Diamox and this seems to have helped his glucose is under good control. This patient is possible for transfer to [facility] tomorrow if all goes well with the PEG. This was discussed with his last night. 05/26/2017. This is a 66-year-old white male. He has been a patient of mine since 2003. He has ankylosing spondylitis with probable spinal stenosis. He has limited mobility. He has become very weak in the past few years. 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 Patient has underlying COPD and asthma. He has a history of high blood pressure and hypothyroidism. He has had a sick sinus syndrome. He has a dual-chamber pacemaker. He has had compression fractures of his spine which is been treated by Dr. Patel. He was admitted this time with an altered mental status appear to be secondary to urinary tract infection. He was doing well and then developed significant respiratory difficulty and ended up on mechanical ventilation. He had a right pleural effusion that would not resolve. Thoracentesis showed an exudate. No cause of this is been found and it may be what is leftover from an old parapneumonic pleural effusion. 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 This is leftover from a pleural stripping done in 2003 after the patient was seen by me for the first time with an empyema. This patient has underlying collapsible airways and he had a big problem with retention of secretions and he required a number of bronchoscopies. He was never able to stasis off the ventilator successfully for any length of time. He had now has a trach. He is able to be suctioned better and his airways look a lot better but he will probably have problems with retention of secretions along the way. He had a PEG tube placed yesterday and this appears to be working well. The patient's trach is a flexible trach and it needs to be pushed and just about its entire length in order for him to be ventilated most easily. Otherwise in the opening tends to partially abut against the tracheal wall. Multiple bronchoscopy specimens have grown methicillin-resistant staph aureus. Final positive culture was from a bronchoscopy done 05/19/2017. So far specimens from bronchoscopy done 05/22/2017 have grown only yeast. This patient will be transferred to [facility] under the care of Dr. Marek Wu. He may require swing bed or rehab afterwards. He had been in a detention on a short-term basis prior to this admission. At the present time the patient's would like to be able to take him home. Exam (Progress Note) - Constitutional Vitals: Period Temp Pulse Resp BP Sys/Ivey Pulse Ox Last 24 Hr 5 F-98.0 F 83-105 18-28 118-166/66-83 88-99 Exam: Neurologic. . Sedated. Moves all fours. Chest. Loose large airway congestion Heart no gallop Abdomen is obese, but nontender and nondistended; bowel sounds are positive 4 Extremities with nothing to suggest acute deep venous thrombophlebitis; bilateral pedal and pretibial edema; chronic venous stasis changes Neck. Also normal curvature secondary to ankylosing spondylitis. Musculoskeletal. Cervical thoracic and lumbar changes of ankylosing spondylitis Lymphatics. No submandibular cervical supraclavicular or epitrochlear adenopathy. The remainder the exam is noncontributory Plan. 05/08/2007 1. Fiberoptic bronchoscopy in the morning 2. Mechanical ventilation weaning protocol and physical therapy protocol 3. See today's note, above 05/09/2017. 1. Fiberoptic bronchoscopy showed no evidence of aspiration see report 2. Stage II to weaning protocol 3. Repeat echocardiogram with attention to recent onset of pulmonary hypertension 4. Replace potassium 5. Check magnesium 6. Daily chest x-ray ABGs and lab 7. Watch slow decline of H&H 8. Check bronchoscopy specimens 9. Cardiology consult 05/10/2017. 1. See today's note, above 2. Appreciate cardiology consultation 3. Fiberoptic bronchoscopy in the morning 4. Consult interventional radiologist for thoracentesis. Because of the patient's ankylosing spondylitis and anatomy of this will be difficult. See today's note above concerning studies when needed. This was discussed with the and she is agreeable 05/15/2017. 1. See today's note, above 2. Extubated 05/15/2017. Follow-up ABGs pending 3. Follow chest x-ray, ABGs and lab. 05/18/2017. 1. See my note above. 2. Intubated on the night of 05/17/2017. 3. ENT consultation for tracheostomy. 05/20/2017. 1. See my note, above. 2. Distal trachea appears to abut the carolyn 3. Weaning protocol. 4. Sputum's are still positive for methicillin-resistant staph aureus. Continue vancomycin 05/21/2017. 1. See my note from 06-04 and 05/21/2017. Suspected will have to adjust endotracheal tube. 2. Continue present regimen. 05/22/2017. 1. See my note above. 2. Dr. Jose babcock, ENT to reevaluate trach. On x-ray it appears to be too long and appears to abut against the trachea 3. Will need fiberoptic bronchoscopy tomorrow. Bibasilar atelectasis. 4. Discuss with . She needs to really discuss with social work associate as the patient is status has changed since her last 05/23/2017. 1. See today's note, above 2. Fiberoptic bronchoscopy done 05/23/2017. See report 3. Ventilator adjustments have been made and these appear to be working fine. 4. Trach is working fine. 5. We will look into the possibility of long-term acute care near the end of the week. 6. Continue daily chest x-ray ABGs and lab 05/24/2017. 1. See today's note above. 2. Consult Dr. Wu for possible acceptance at [facility]. 3. We will consider PEG placement. not available this morning although she leftward that she would be outside. 05/25/2017. 1. PEG 2. Possible transfer to [facility] tomorrow 3. Watch pleural effusions. Early in hospitalization he had a right thoracentesis and this showed an exudate but the cause is never been apparent 05/26/2017. 1. See my note above. 2. Patient is being transferred to [facility] under the care of 3. I will sign off. Exam (Progress Note) - Constitutional Vitals: Period Temp Pulse Resp BP Sys/Ivey Pulse Ox Last 24 Hr 98.3 F 89-115 16-36 87-127/54-84 96-100 Results - Labs CBC & BMP: 05/26/17 04:00 05/26/17 04:00 Specialty Discharge - Follow Up or Referrals Follow up with: Bala Ramírez MD [Primary Care Provider] - 1 Week (Needs appt with Dr. Wilson office for pt to be seen within 1 week of discharge date.)
== END 2017-05-26 13:20 | DRG 4 ==
LOC: N.ED 20:35 → N.EDINP 05-04 02:08 → SUATTDRO 05-04 02:08 → N.2E 05-04 03:19 → N.CC 05-07 00:15
PROVIDERS: ADMIT Internal Medicine; ATTEND Internal Medicine Geriatric Medicine
PROC: EGDWPEG (ICD-10-PCS; 2017-05-25 07:35)

== ENCOUNTER 2017-07-08 19:22 | Inpatient (IN) ==
[2017-07-08] MEDS ORDERED: VANCOMYCIN INJ 1,500 MG in SODIUM CHLORIDE 0.9% 250 ML IV STA (21:03)
[2017-07-08] MEDS ORDERED: PIPERACILLIN/TAZOBACTAM 3,375 MG in SODIUM CHLORIDE 0.9% 100 ML IV STA (21:03)
[2017-07-08] MEDS ORDERED: ALBUTEROL/IPRATROPIUM 3 ML NEB RESP TX STA (21:03)
[2017-07-08] MEDS ORDERED: SODIUM CHLORIDE 0.9% 1,000 ML IV STA (21:03)
[2017-07-08 21:29] LABS: Alanine Aminotransferase 33 U/L (16-61); Albumin 3.1 G/DL (3.4-5.0); Alkaline Phosphatase 146 U/L (45-117); Aspartate Amino Transferase 23 U/L (0-37); Basophils % 0.3 % (0.0-0.8); Bilirubin,Total < 0.39 MG/DL (0.2-1.0); Blood Urea Nitrogen 32 MG/DL (7-18); Calcium 9.5 MG/DL (8.5-10.1); Eosinophils # 0.1 10*3/uL (0.0-0.87); Eosinophils % 0.5 % (0.00-10.9); Glucose 102 MG/DL (74-106); Hematocrit 41.8 VOL% (42.0-52.0); Hemoglobin 13.2 GM/DL (14.0-18.0); Immature Granulocytes % 0.6 %; Immature Granulocytes Absolute 0.08 #; Lymphocytes # 0.7 10*3/uL (1.4-4.0); Lymphocytes % 5.4 % (21.2-54.2); Magnesium 2.5 MG/DL (1.8-2.4); Mean Corpuscular HGB Conc 31.6 GM/DL (32-36); Mean Corpuscular Hemoglobin 31 PG (27-34); Mean Corpuscular Volume 99.1 FL (87-102); Mean Platelet Volume 12.6 FL (9.6-12.0); Monocytes # 1.1 10*3/uL (0.11-0.8); Monocytes % 8.7 % (1.7-12.7); Neutrophils # 10.4 10*3/uL (1.4-7.4); Neutrophils % 84.5 % (38.7-73.9); Osmolality,Calculated 276.1 MOS/KG (273-304); Platelet Count 248 T/CUMM (130-400); Red Blood Count 4.22 MC/CUMM (3.8-5.5); Red Cell Distribution Width 15.9 % (9.3-17.3); Sodium 135 MMOL/L (136-145); Total Protein 8.3 G/DL (6.4-8.3); Troponin I Only < 0.015 NG/ML (0.00-0.045); White Blood Count 12.3 T/CUMM (4-12)
[2017-07-08] MEDS ORDERED: PIPERACILLIN/TAZOBACTAM 3,375 MG VIAL IV ONE (21:29)
[2017-07-08] MEDS ORDERED: VANCOMYCIN 1,000 MG VIAL ONE (21:30)
[2017-07-08] MEDS ORDERED: SODIUM CHLORIDE 0.9% 100 ML IV ONE (21:30)
[2017-07-08 21:31] LABS: ABG Base Excess 3.6 MMOL/L (-2.5-2.5); ABG HCO3 34.7 MMOL/L (20-26); ABG Oxygen Saturation 97.8 % (95-100); ABG PO2 121.7 MM HG (80-95); ABG TCO2 37.4 MMOL/L (23-27)
[2017-07-08 21:36] LABS: ABG PCO2 90.7 MM HG (35-48)
[2017-07-08 21:37] LABS: INR 0.9; PT Patient Result 9.8 SECS
[2017-07-08 22:37] LABS: Barbiturates Screen,Urine Negative (Negative); Benzodiazepines Screen,Urine Positive (Negative); Cannabinoid Screen,Urine Positive (Negative); Opiate Screen,Urine Negative (Negative); Phencyclidine Screen,Urine Negative (Negative)
[2017-07-08 22:40] LABS: Apearance,Urine CLOUDY (Clear); Bacteria,Urine Occasional /HPF (Few); Bilirubin,Urine Negative (Negative); Blood, Urine Negative (Negative); Glucose,Urine (UA) Negative (Negative); Hyaline Casts,Urine 9 /LPF (0-3); Ketones,Urine Negative (Negative); Mucus,Urine Occasional /LPF (Occasional); Nitrite,Urine Negative (Negative); Protein,Urine Negative; RBC,Urine 1 /HPF (0-4); Squamous Epithelial Cell,Urine Occasional /HPF (0-10); Urine Color Yellow (Yellow); Urine Specific Gravity 1.011 (1.001-1.035); Urine Urobilinogen < 2.0 EU/DL (0.2-1.0); WBC,Urine 3 /HPF (0-6)
[2017-07-08] MEDS ORDERED: VANCOMYCIN INJ 1,500 MG in SODIUM CHLORIDE 0.9% 500 ML IV STA (22:41)
[2017-07-09] MEDS ORDERED: ETOMIDATE 20 MG/10 ML VIAL IV ONE ×2 (00:42→02:03)
[2017-07-09] MEDS ORDERED: SUCCINYLCHOLINE 200 MG/10 ML VIAL ONE (00:42)
[2017-07-09] MEDS ORDERED: ONDANSETRON 4 MG/2 ML VIAL IV PRN (01:00)
[2017-07-09] MEDS ORDERED: PROPOFOL 1,000 MG/100 ML BOTTLE IV ONE (01:05)
[2017-07-09] MEDS ORDERED: ROCURONIUM 100 MG/10 ML VIAL IV ONE ×2 (01:06→02:02)
[2017-07-09] MEDS ORDERED: ALBUTEROL/IPRATROPIUM 3 ML NEB RESP TX SCH (01:30)
[2017-07-09] MEDS ORDERED: SUCCINYLCHOLINE 200 MG/10 ML VIAL IV ONE (02:04)
[2017-07-09] MEDS ORDERED: SODIUM CHLORIDE 0.9% 1,000 ML IV STA (02:06)
[2017-07-09] MEDS: PROPOFOL 1,000 MG/100 ML BOTTLE IV SCH (02:11)
[2017-07-09 03:36] LABS: Allen Test Positive; Pt O2 Delivery Device Ventilator
[2017-07-09 03:37] LABS: ABG Base Excess 1.1 MMOL/L (-2.5-2.5); ABG HCO3 25.4 MMOL/L (20-26); ABG PCO2 65.7 MM HG (35-48); ABG PH 7.266 (7.35-7.45); ABG TCO2 27.1 MMOL/L (23-27)
[2017-07-09] MEDS: ALBUTEROL/IPRATROPIUM 3 ML NEB RESP TX SCH ×6 (03:37→23:20)
[2017-07-09 05:27] LABS: Basophils % 0.3 % (0.0-0.8); Eosinophils % 0.2 % (0.00-10.9); Hematocrit 39.6 VOL% (42.0-52.0); Immature Granulocytes % 0.8 %; Immature Granulocytes Absolute 0.09 #; Lymphocytes # 0.8 10*3/uL (1.4-4.0); Mean Corpuscular HGB Conc 29.8 GM/DL (32-36); Mean Corpuscular Hemoglobin 31 PG (27-34); Mean Corpuscular Volume 103.9 FL (87-102); Monocytes # 1.3 10*3/uL (0.11-0.8); Monocytes % 11.8 % (1.7-12.7); Neutrophils % 79.9 % (38.7-73.9); Platelet Count 199 T/CUMM (130-400); Red Blood Count 3.81 MC/CUMM (3.8-5.5); Red Cell Distribution Width 15.9 % (9.3-17.3); White Blood Count 11.3 T/CUMM (4-12)
[2017-07-09 05:34] LABS: ABG Base Excess 2.1 MMOL/L (-2.5-2.5); ABG HCO3 27.5 MMOL/L (20-26); ABG Oxygen Saturation 89.6 % (95-100); ABG PCO2 45.8 MM HG (35-48); ABG PH 7.397 (7.35-7.45); ABG PO2 57.3 MM HG (80-95); ABG TCO2 28.9 MMOL/L (23-27)
[2017-07-09 05:36] LABS: Hemoglobin 11.8 GM/DL (14.0-18.0)
[2017-07-09] MEDS: PIPERACILLIN/TAZOBACTAM 3,375 MG in SODIUM CHLORIDE 0.9% 100 ML IV SCH ×3 (05:49→22:12)
[2017-07-09] MEDS ORDERED: ZINC OXIDE PASTE 113 GM TUBE TOP PRN (06:09)
[2017-07-09] MEDS ORDERED: POLYCARBOPHIL 625 MG TABLET PEG PRN (06:09)
[2017-07-09] MEDS ORDERED: SKIN HEALING OINT (AQUAPHOR) 50 GM TUBE TOP PRN (06:09)
[2017-07-09] MEDS ORDERED: methylPREDNISolone SOD SUC 125 MG/2 ML VIAL IV ONE (06:16)
[2017-07-09 06:24] LABS: Calcium 8.8 MG/DL (8.5-10.1); Osmolality,Calculated 283.5 MOS/KG (273-304); Potassium 5.2 MMOL/L (3.5-5.1)
[2017-07-09] MEDS: SODIUM CHLORIDE 0.9% 1,000 ML IV SCH ×3 (06:25→22:02)
[2017-07-09] MEDS ORDERED: methylPREDNISolone SOD SUC 125 MG/2 ML VIAL IV SCH (07:30)
[2017-07-09] MEDS: fentaNYL INJ 1,250 MCG in SODIUM CHLORIDE 0.9% 225 ML IV SCH ×2 (08:50→22:00)
[2017-07-09] MEDS: ATROPINE 1 % OPH SOLN 5 ML BOTTLE BOTH EYES SCH ×3 (09:52→22:11)
[2017-07-09] MEDS: prednisoLONE ACETATE 1% OPH SUSP 5 ML BOTTLE BOTH EYES SCH ×4 (09:53→22:11)
[2017-07-09] MEDS: acetaZOLAMIDE 250 MG TABLET PEG SCH (09:55)
[2017-07-09] MEDS: MULTIVITAMIN (CENTRUM) TABLET PEG SCH (09:55)
[2017-07-09] MEDS: miSOPROStol 200 MCG TABLET PEG SCH (09:55)
[2017-07-09] MEDS: THIAMINE 100 MG TABLET PEG SCH (09:56)
[2017-07-09] MEDS: FUROSEMIDE 20 MG TABLET PEG SCH (09:57)
[2017-07-09] MEDS: ASCORBIC ACID 500 MG TABLET PEG SCH (09:57)
[2017-07-09] MEDS: IMIPRAMINE 50 MG TABLET PEG SCH (09:57)
[2017-07-09] MEDS: LEVOTHYROXINE 100 MCG TABLET PEG SCH (09:57)
[2017-07-09] MEDS: LIDOCAINE 5% PATCH TRANSDERM SCH (12:35)
[2017-07-09] MEDS: methylPREDNISolone SOD SUC 125 MG/2 ML VIAL IV SCH ×2 (12:45→19:05)
[2017-07-09] MEDS: VANCOMYCIN INJ 1,500 MG in SODIUM CHLORIDE 0.9% 500 ML IV SCH (16:16)
[2017-07-09] MEDS ORDERED: CLORAZEPATE 3.75 MG TABLET PEG SCH (21:00)
[2017-07-10] MEDS: methylPREDNISolone SOD SUC 125 MG/2 ML VIAL IV SCH ×2 (00:01→06:31)
[2017-07-10] MEDS: ALBUTEROL/IPRATROPIUM 3 ML NEB RESP TX SCH ×6 (02:49→23:38)
[2017-07-10] MEDS: PROPOFOL 1,000 MG/100 ML BOTTLE IV SCH (02:58)
[2017-07-10 04:15] LABS: ABG Base Excess 1.5 MMOL/L (-2.5-2.5); ABG HCO3 25.7 MMOL/L (20-26); ABG Oxygen Saturation 98.8 % (95-100); ABG PH 7.437 (7.35-7.45); ABG PO2 150.1 MM HG (80-95); ABG TCO2 26.9 MMOL/L (23-27)
[2017-07-10 04:51] LABS: Hematocrit 32.6 VOL% (42.0-52.0); Hemoglobin 10.6 GM/DL (14.0-18.0); Immature Granulocytes % 0.5 %; Immature Granulocytes Absolute 0.05 #; Lymphocytes # 0.2 10*3/uL (1.4-4.0); Mean Corpuscular HGB Conc 32.5 GM/DL (32-36); Mean Corpuscular Hemoglobin 31 PG (27-34); Mean Corpuscular Volume 95.3 FL (87-102); Mean Platelet Volume 11.9 FL (9.6-12.0); Monocytes # 0.3 10*3/uL (0.11-0.8); Monocytes % 2.9 % (1.7-12.7); Neutrophils % 94.6 % (38.7-73.9); Platelet Count 171 T/CUMM (130-400); Red Blood Count 3.42 MC/CUMM (3.8-5.5); Red Cell Distribution Width 16.1 % (9.3-17.3); White Blood Count 9.5 T/CUMM (4-12)
[2017-07-10 05:21] LABS: Calcium 8.5 MG/DL (8.5-10.1); Osmolality,Calculated 290.3 MOS/KG (273-304)
[2017-07-10 05:41] LABS: Giant Platelets Few; Hypochromasia 1+; Lymphocytes 2 % (20-55); Ovalocytes Slight; Platelet Estimate Normal; Segmented Neutrophils 96 % (50-85); Total Cells Counted 100
[2017-07-10] MEDS: SODIUM CHLORIDE 0.9% 1,000 ML IV SCH ×3 (06:30→23:30)
[2017-07-10] MEDS: PIPERACILLIN/TAZOBACTAM 3,375 MG in SODIUM CHLORIDE 0.9% 100 ML IV SCH ×3 (06:31→21:34)
[2017-07-10] MEDS ORDERED: methylPREDNISolone SOD SUC 40 MG/1 ML VIAL IM SCH (08:30)
[2017-07-10] MEDS ORDERED: AMINOPHYLLINE 250 MG in SODIUM CHLORIDE 0.9% 100 ML IV ONE (10:38)
[2017-07-10] MEDS ORDERED: CLORAZEPATE 3.75 MG TABLET PEG SCH (11:00)
[2017-07-10] MEDS: miSOPROStol 200 MCG TABLET PEG SCH (11:10)
[2017-07-10] MEDS: FUROSEMIDE 20 MG TABLET PEG SCH (11:10)
[2017-07-10] MEDS: MULTIVITAMIN (CENTRUM) TABLET PEG SCH (11:10)
[2017-07-10] MEDS: ASCORBIC ACID 500 MG TABLET PEG SCH (11:11)
[2017-07-10] MEDS: THIAMINE 100 MG TABLET PEG SCH (11:11)
[2017-07-10] MEDS: LEVOTHYROXINE 100 MCG TABLET PEG SCH (11:11)
[2017-07-10] MEDS: CLORAZEPATE 3.75 MG TABLET PEG SCH ×3 (11:11→21:32)
[2017-07-10] MEDS: IMIPRAMINE 50 MG TABLET PEG SCH (11:11)
[2017-07-10] MEDS: VANCOMYCIN INJ 1,500 MG in SODIUM CHLORIDE 0.9% 500 ML IV SCH (11:34)
[2017-07-10] MEDS: prednisoLONE ACETATE 1% OPH SUSP 5 ML BOTTLE BOTH EYES SCH ×4 (11:35→21:32)
[2017-07-10] MEDS: ATROPINE 1 % OPH SOLN 5 ML BOTTLE BOTH EYES SCH ×3 (11:35→21:32)
[2017-07-10] MEDS: LIDOCAINE 5% PATCH TRANSDERM SCH (11:35)
[2017-07-10] MEDS: methylPREDNISolone SOD SUC 40 MG/1 ML VIAL IV SCH ×2 (11:36→23:31)
[2017-07-10] MEDS: fentaNYL INJ 1,250 MCG in SODIUM CHLORIDE 0.9% 225 ML IV SCH ×2 (11:46→11:49)
[2017-07-10] MEDS: acetaZOLAMIDE 250 MG TABLET PEG SCH (11:49)
[2017-07-10] MEDS: AMINOPHYLLINE 500 MG in SODIUM CHLORIDE 0.9% 480 ML IV SCH (16:55)
[2017-07-11] MEDS: fentaNYL INJ 1,250 MCG in SODIUM CHLORIDE 0.9% 225 ML IV SCH ×4 (00:10→19:35)
[2017-07-11] MEDS: VANCOMYCIN INJ 1,500 MG in SODIUM CHLORIDE 0.9% 500 ML IV SCH ×2 (01:56→19:14)
[2017-07-11 02:59] LABS: ABG Base Excess -2.8 MMOL/L (-2.5-2.5); ABG HCO3 22.1 MMOL/L (20-26); ABG Oxygen Saturation 98.5 % (95-100); ABG PCO2 46.3 MM HG (35-48); ABG PH 7.314 (7.35-7.45); ABG TCO2 21.6 MMOL/L (23-27)
[2017-07-11] MEDS: ALBUTEROL/IPRATROPIUM 3 ML NEB RESP TX SCH ×6 (03:16→23:42)
[2017-07-11 04:15] LABS: Hematocrit 33.9 VOL% (42.0-52.0); Hemoglobin 10.6 GM/DL (14.0-18.0); Immature Granulocytes % 0.7 %; Immature Granulocytes Absolute 0.06 #; Lymphocytes # 0.2 10*3/uL (1.4-4.0); Lymphocytes % 2.7 % (21.2-54.2); Mean Corpuscular HGB Conc 31.3 GM/DL (32-36); Mean Corpuscular Hemoglobin 31 PG (27-34); Mean Platelet Volume 12.3 FL (9.6-12.0); Monocytes # 0.6 10*3/uL (0.11-0.8); Monocytes % 6.9 % (1.7-12.7); Neutrophils % 89.7 % (38.7-73.9); Platelet Count 176 T/CUMM (130-400); Red Blood Count 3.39 MC/CUMM (3.8-5.5); Red Cell Distribution Width 16.2 % (9.3-17.3)
[2017-07-11 04:40] LABS: Calcium 8.6 MG/DL (8.5-10.1); Osmolality,Calculated 290.8 MOS/KG (273-304); Potassium 3.5 MMOL/L (3.5-5.1)
[2017-07-11] MEDS: PIPERACILLIN/TAZOBACTAM 3,375 MG in SODIUM CHLORIDE 0.9% 100 ML IV SCH ×3 (05:03→21:41)
[2017-07-11 05:22] LABS: Lymphocytes 1 % (20-55); Segmented Neutrophils 92 % (50-85); Total Cells Counted 100
[2017-07-11 05:23] LABS: Giant Platelets Few; Hypochromasia 1+; Ovalocytes Slight; Platelet Estimate Adequate
[2017-07-11] MEDS: SODIUM CHLORIDE 0.9% 1,000 ML IV SCH ×3 (07:50→22:55)
[2017-07-11] MEDS: PROPOFOL 1,000 MG/100 ML BOTTLE IV SCH (08:07)
[2017-07-11] MEDS: THIAMINE 100 MG TABLET PEG SCH (09:03)
[2017-07-11] MEDS: MULTIVITAMIN (CENTRUM) TABLET PEG SCH (09:03)
[2017-07-11] MEDS: IMIPRAMINE 50 MG TABLET PEG SCH (09:04)
[2017-07-11] MEDS: ASCORBIC ACID 500 MG TABLET PEG SCH (09:04)
[2017-07-11] MEDS: CLORAZEPATE 3.75 MG TABLET PEG SCH ×3 (09:04→21:39)
[2017-07-11] MEDS: miSOPROStol 200 MCG TABLET PEG SCH (09:04)
[2017-07-11] MEDS: LEVOTHYROXINE 100 MCG TABLET PEG SCH (09:04)
[2017-07-11] MEDS: LIDOCAINE 5% PATCH TRANSDERM SCH (09:04)
[2017-07-11] MEDS: FUROSEMIDE 20 MG TABLET PEG SCH (09:04)
[2017-07-11] MEDS: prednisoLONE ACETATE 1% OPH SUSP 5 ML BOTTLE BOTH EYES SCH ×2 (09:05→13:38)
[2017-07-11] MEDS: ATROPINE 1 % OPH SOLN 5 ML BOTTLE BOTH EYES SCH (09:05)
[2017-07-11] MEDS: methylPREDNISolone SOD SUC 40 MG/1 ML VIAL IV SCH ×2 (11:47→23:33)
[2017-07-11] MEDS ORDERED: DEXTROSE 50% 25 GM/50 ML VIAL IV PRN (11:52)
[2017-07-11] MEDS ORDERED: GLUCAGON 1 MG VIAL IM PRN (11:52)
[2017-07-11] MEDS: INSULIN REGULAR 100 UNIT/ML SUBCUT SCH ×3 (12:08→23:26)
[2017-07-11] MEDS: AMINOPHYLLINE 500 MG in SODIUM CHLORIDE 0.9% 480 ML IV SCH (14:46)
[2017-07-12] MEDS: ALBUTEROL/IPRATROPIUM 3 ML NEB RESP TX SCH ×5 (03:52→19:02)
[2017-07-12 04:06] LABS: ABG Base Excess -0.5 MMOL/L (-2.5-2.5); ABG HCO3 25.1 MMOL/L (20-26); ABG PCO2 44.8 MM HG (35-48); ABG PH 7.366 (7.35-7.45); ABG TCO2 26.5 MMOL/L (23-27); Allen Test Positive; Pt O2 Delivery Device Ventilator
[2017-07-12 04:30] LABS: Hematocrit 32.5 VOL% (42.0-52.0); Hemoglobin 10.4 GM/DL (14.0-18.0); Immature Granulocytes % 0.6 %; Immature Granulocytes Absolute 0.04 #; Lymphocytes # 0.1 10*3/uL (1.4-4.0); Lymphocytes % 2.1 % (21.2-54.2); Mean Corpuscular Hemoglobin 31 PG (27-34); Monocytes # 0.4 10*3/uL (0.11-0.8); Monocytes % 5.7 % (1.7-12.7); Neutrophils # 6.2 10*3/uL (1.4-7.4); Neutrophils % 91.6 % (38.7-73.9); Platelet Count 171 T/CUMM (130-400); Red Blood Count 3.35 MC/CUMM (3.8-5.5); White Blood Count 6.8 T/CUMM (4-12)
[2017-07-12 05:05] LABS: Calcium 8.3 MG/DL (8.5-10.1); Magnesium 2.2 MG/DL (1.8-2.4); Potassium 3.1 MMOL/L (3.5-5.1)
[2017-07-12 05:17] LABS: Magnesium 2.2 MG/DL (1.8-2.4); Prealbumin 19.6 MG/DL (20-40)
[2017-07-12] MEDS: fentaNYL INJ 1,250 MCG in SODIUM CHLORIDE 0.9% 225 ML IV SCH ×2 (05:24→10:28)
[2017-07-12] MEDS: PIPERACILLIN/TAZOBACTAM 3,375 MG in SODIUM CHLORIDE 0.9% 100 ML IV SCH ×3 (05:25→21:31)
[2017-07-12] MEDS: INSULIN REGULAR 100 UNIT/ML SUBCUT SCH ×3 (05:25→19:32)
[2017-07-12 05:45] LABS: Giant Platelets Few; Hypochromasia 1+; Lymphocytes 2 % (20-55); Ovalocytes Slight; Platelet Estimate Normal; Segmented Neutrophils 91 % (50-85); Total Cells Counted 100
[2017-07-12] MEDS: PROPOFOL 1,000 MG/100 ML BOTTLE IV SCH (07:49)
[2017-07-12] MEDS: SODIUM CHLORIDE 0.9% 1,000 ML IV SCH ×2 (08:00→16:18)
[2017-07-12] MEDS ORDERED: POTASSIUM CHLORIDE RIDER 10 MEQ in PREMIX 1 EACH IV PRN (08:32)
[2017-07-12 09:47] LABS: ABG Base Excess -1.8 MMOL/L (-2.5-2.5); ABG HCO3 26.4 MMOL/L (20-26); ABG Oxygen Saturation 95.1 % (95-100); ABG PCO2 62.4 MM HG (35-48); ABG PH 7.244 (7.35-7.45); ABG PO2 80.6 MM HG (80-95); ABG TCO2 28.3 MMOL/L (23-27)
[2017-07-12] MEDS: IMIPRAMINE 50 MG TABLET PEG SCH (10:24)
[2017-07-12] MEDS: LEVOTHYROXINE 100 MCG TABLET PEG SCH (10:24)
[2017-07-12] MEDS: ASCORBIC ACID 500 MG TABLET PEG SCH (10:24)
[2017-07-12] MEDS: FUROSEMIDE 20 MG TABLET PEG SCH (10:24)
[2017-07-12] MEDS: miSOPROStol 200 MCG TABLET PEG SCH (10:24)
[2017-07-12] MEDS: MULTIVITAMIN (CENTRUM) TABLET PEG SCH (10:24)
[2017-07-12] MEDS: THIAMINE 100 MG TABLET PEG SCH (10:24)
[2017-07-12] MEDS: CLORAZEPATE 3.75 MG TABLET PEG SCH ×3 (10:24→21:31)
[2017-07-12] MEDS: LIDOCAINE 5% PATCH TRANSDERM SCH (10:25)
[2017-07-12] MEDS: methylPREDNISolone SOD SUC 40 MG/1 ML VIAL IV SCH ×3 (12:25→21:30)
[2017-07-12 13:00] LABS: ABG Base Excess -3.2 MMOL/L (-2.5-2.5); ABG HCO3 21.6 MMOL/L (20-26); ABG Oxygen Saturation 91.4 % (95-100); ABG PCO2 67.9 MM HG (35-48); ABG PO2 69.7 MM HG (80-95); ABG TCO2 24.4 MMOL/L (23-27); Allen Test Positive; Pt O2 Delivery Device Venturi Mask
[2017-07-12] MEDS ORDERED: RACEPINEPHRINE 0.5 ML NEB RESP TX ONE (13:13)
[2017-07-12] MEDS: VANCOMYCIN INJ 1,500 MG in SODIUM CHLORIDE 0.9% 500 ML IV SCH (14:37)
[2017-07-12 14:57] LABS: ABG Base Excess -3.4 MMOL/L (-2.5-2.5); ABG HCO3 21.3 MMOL/L (20-26); ABG PCO2 63.8 MM HG (35-48); ABG PH 7.215 (7.35-7.45); ABG TCO2 23.7 MMOL/L (23-27)
[2017-07-12 15:27] LABS: ABG Base Excess -3.8 MMOL/L (-2.5-2.5); ABG HCO3 21.1 MMOL/L (20-26); ABG Oxygen Saturation 86.2 % (95-100); ABG PCO2 65.1 MM HG (35-48); ABG PO2 57.1 MM HG (80-95); ABG TCO2 23.6 MMOL/L (23-27)
[2017-07-12 15:28] LABS: ABG PH 7.205 (7.35-7.45)
[2017-07-12] MEDS: AMINOPHYLLINE 500 MG in SODIUM CHLORIDE 0.9% 480 ML IV SCH (16:19)
[2017-07-12] MEDS: ALBUTEROL/IPRATROPIUM 3 ML NEB RESP TX PRN (16:30)
[2017-07-12] MEDS: POTASSIUM CHLORIDE 20 MEQ/15 ML UDCUP PER TUBE PRN ×2 (20:13→21:29)
[2017-07-13] MEDS: SODIUM CHLORIDE 0.9% 1,000 ML IV SCH ×3 (00:30→18:02)
[2017-07-13] MEDS: INSULIN REGULAR 100 UNIT/ML SUBCUT SCH ×4 (02:35→17:52)
[2017-07-13] MEDS: POTASSIUM CHLORIDE 20 MEQ/15 ML UDCUP PER TUBE PRN ×5 (02:51→12:54)
[2017-07-13 03:55] LABS: ABG Base Excess -2.3 MMOL/L (-2.5-2.5); ABG HCO3 22.4 MMOL/L (20-26); ABG Oxygen Saturation 91.2 % (95-100); ABG PCO2 64.9 MM HG (35-48); ABG PH 7.224 (7.35-7.45); ABG PO2 63.6 MM HG (80-95); ABG TCO2 24.7 MMOL/L (23-27)
[2017-07-13] MEDS: methylPREDNISolone SOD SUC 40 MG/1 ML VIAL IV SCH ×3 (05:14→21:33)
[2017-07-13] MEDS: PIPERACILLIN/TAZOBACTAM 3,375 MG in SODIUM CHLORIDE 0.9% 100 ML IV SCH ×3 (05:15→21:34)
[2017-07-13] MEDS: AMINOPHYLLINE 500 MG in SODIUM CHLORIDE 0.9% 480 ML IV SCH ×2 (05:15→15:24)
[2017-07-13 05:44] LABS: Basophils % 0.1 % (0.0-0.8); Hematocrit 35.3 VOL% (42.0-52.0); Hemoglobin 10.9 GM/DL (14.0-18.0); Immature Granulocytes % 1.5 %; Immature Granulocytes Absolute 0.15 #; Lymphocytes # 0.1 10*3/uL (1.4-4.0); Lymphocytes % 1.4 % (21.2-54.2); Mean Corpuscular HGB Conc 30.9 GM/DL (32-36); Mean Corpuscular Hemoglobin 31 PG (27-34); Mean Corpuscular Volume 100.3 FL (87-102); Monocytes # 0.7 10*3/uL (0.11-0.8); Monocytes % 7.2 % (1.7-12.7); Neutrophils % 89.8 % (38.7-73.9); Platelet Count 172 T/CUMM (130-400); Red Blood Count 3.52 MC/CUMM (3.8-5.5); Red Cell Distribution Width 16.3 % (9.3-17.3); White Blood Count 10.1 T/CUMM (4-12)
[2017-07-13 06:10] LABS: Giant Platelets Few; Hypochromasia 1+; Lymphocytes 1 % (20-55); Platelet Estimate Normal; Segmented Neutrophils 95 % (50-85); Total Cells Counted 100
[2017-07-13 06:18] LABS: Calcium 8.1 MG/DL (8.5-10.1); Magnesium 2.4 MG/DL (1.8-2.4); Osmolality,Calculated 291.8 MOS/KG (273-304); Potassium 3.3 MMOL/L (3.5-5.1)
[2017-07-13] MEDS: ALBUTEROL/IPRATROPIUM 3 ML NEB RESP TX SCH ×4 (06:23→19:23)
[2017-07-13] MEDS: VANCOMYCIN INJ 1,500 MG in SODIUM CHLORIDE 0.9% 500 ML IV SCH (07:38)
[2017-07-13] MEDS: ALBUTEROL/IPRATROPIUM 3 ML NEB RESP TX PRN (09:15)
[2017-07-13] MEDS: LIDOCAINE 5% PATCH TRANSDERM SCH (09:44)
[2017-07-13] MEDS: IMIPRAMINE 50 MG TABLET PEG SCH (09:46)
[2017-07-13] MEDS: miSOPROStol 200 MCG TABLET PEG SCH (09:46)
[2017-07-13] MEDS: MULTIVITAMIN (CENTRUM) TABLET PEG SCH (09:46)
[2017-07-13] MEDS: CLORAZEPATE 3.75 MG TABLET PEG SCH ×3 (09:46→21:32)
[2017-07-13] MEDS: FUROSEMIDE 20 MG TABLET PEG SCH (09:46)
[2017-07-13] MEDS: ASCORBIC ACID 500 MG TABLET PEG SCH (09:47)
[2017-07-13] MEDS: THIAMINE 100 MG TABLET PEG SCH (09:47)
[2017-07-13] MEDS: LEVOTHYROXINE 100 MCG TABLET PEG SCH (09:47)
[2017-07-13] MEDS ORDERED: IPRATROPIUM 500 MCG/2.5 ML NEB RESP TX ONE (10:18)
[2017-07-13 11:15] LABS: ABG Base Excess -2.1 MMOL/L (-2.5-2.5); ABG HCO3 22.2 MMOL/L (20-26); ABG Oxygen Saturation 74.7 % (95-100); ABG PH 7.215 (7.35-7.45); ABG TCO2 25.3 MMOL/L (23-27)
[2017-07-13] MEDS: DORNASE ALFA 2.5 MG/2.5 ML VIAL RESP TX SCH ×2 (11:16→19:23)
[2017-07-13] MEDS ORDERED: ETOMIDATE 20 MG/10 ML VIAL IV ONE (12:02)
[2017-07-13] MEDS ORDERED: SUCCINYLCHOLINE 200 MG/10 ML VIAL ONE (12:02)
[2017-07-13 12:10] LABS: ABG Base Excess -2.2 MMOL/L (-2.5-2.5); ABG HCO3 26.2 MMOL/L (20-26); ABG Oxygen Saturation 90.2 % (95-100); ABG PCO2 62.3 MM HG (35-48); ABG PH 7.241 (7.35-7.45); ABG PO2 54.6 MM HG (80-95); ABG TCO2 28.1 MMOL/L (23-27)
[2017-07-13] MEDS: fentaNYL INJ 1,250 MCG in SODIUM CHLORIDE 0.9% 225 ML IV SCH ×2 (12:13→20:13)
[2017-07-13] MEDS: POTASSIUM CHLORIDE 20 MEQ/15 ML UDCUP PER TUBE SCH ×2 (15:22→21:32)
[2017-07-14] MEDS: INSULIN REGULAR 100 UNIT/ML SUBCUT SCH ×5 (00:21→23:54)
[2017-07-14] MEDS: VANCOMYCIN INJ 1,500 MG in SODIUM CHLORIDE 0.9% 500 ML IV SCH ×2 (02:21→20:57)
[2017-07-14] MEDS: SODIUM CHLORIDE 0.9% 1,000 ML IV SCH ×5 (02:24→23:53)
[2017-07-14 04:35] LABS: ABG Base Excess -0.3 MMOL/L (-2.5-2.5); ABG HCO3 24.2 MMOL/L (20-26); ABG PCO2 48.1 MM HG (35-48); ABG PH 7.339 (7.35-7.45); ABG TCO2 23.7 MMOL/L (23-27)
[2017-07-14 06:09] LABS: Hematocrit 32.2 VOL% (42.0-52.0); Hemoglobin 10.6 GM/DL (14.0-18.0); Immature Granulocytes % 0.7 %; Immature Granulocytes Absolute 0.06 #; Lymphocytes # 0.2 10*3/uL (1.4-4.0); Mean Corpuscular HGB Conc 32.9 GM/DL (32-36); Mean Corpuscular Hemoglobin 32 PG (27-34); Mean Corpuscular Volume 97.3 FL (87-102); Mean Platelet Volume 12.4 FL (9.6-12.0); Monocytes # 0.7 10*3/uL (0.11-0.8); Monocytes % 8.1 % (1.7-12.7); NRBC # 0.02 10*3/uL; Neutrophils # 7.5 10*3/uL (1.4-7.4); Neutrophils % 89.2 % (38.7-73.9); Platelet Count 135 T/CUMM (130-400); Red Blood Count 3.31 MC/CUMM (3.8-5.5); White Blood Count 8.4 T/CUMM (4-12)
[2017-07-14 06:19] LABS: Calcium 8.1 MG/DL (8.5-10.1); Osmolality,Calculated 283.4 MOS/KG (273-304); Potassium 4.2 MMOL/L (3.5-5.1)
[2017-07-14] MEDS: methylPREDNISolone SOD SUC 40 MG/1 ML VIAL IV SCH ×3 (06:26→23:44)
[2017-07-14] MEDS: PIPERACILLIN/TAZOBACTAM 3,375 MG in SODIUM CHLORIDE 0.9% 100 ML IV SCH ×3 (06:26→23:45)
[2017-07-14] MEDS: fentaNYL INJ 1,250 MCG in SODIUM CHLORIDE 0.9% 225 ML IV SCH ×3 (06:27→18:01)
[2017-07-14] MEDS: ALBUTEROL/IPRATROPIUM 3 ML NEB RESP TX SCH ×4 (07:02→19:50)
[2017-07-14] MEDS: DORNASE ALFA 2.5 MG/2.5 ML VIAL RESP TX SCH ×2 (07:15→20:00)
[2017-07-14 10:02] LABS: Folate 22.7 NG/ML (5.4-24.0)
[2017-07-14] MEDS: MULTIVITAMIN (CENTRUM) TABLET PEG SCH (10:15)
[2017-07-14] MEDS: LEVOTHYROXINE 100 MCG TABLET PEG SCH (10:15)
[2017-07-14] MEDS: IMIPRAMINE 50 MG TABLET PEG SCH (10:15)
[2017-07-14] MEDS: THIAMINE 100 MG TABLET PEG SCH (10:15)
[2017-07-14] MEDS: miSOPROStol 200 MCG TABLET PEG SCH (10:15)
[2017-07-14] MEDS: ASCORBIC ACID 500 MG TABLET PEG SCH (10:15)
[2017-07-14] MEDS: FUROSEMIDE 20 MG TABLET PEG SCH (10:15)
[2017-07-14] MEDS: POTASSIUM CHLORIDE 20 MEQ/15 ML UDCUP PER TUBE SCH ×3 (10:16→21:34)
[2017-07-14] MEDS: CLORAZEPATE 3.75 MG TABLET PEG SCH ×3 (10:25→21:34)
[2017-07-14] MEDS: LIDOCAINE 5% PATCH TRANSDERM SCH (10:28)
[2017-07-14] MEDS: AMINOPHYLLINE 500 MG in SODIUM CHLORIDE 0.9% 480 ML IV SCH (18:20)
[2017-07-15 03:17] LABS: ABG Base Excess 0.5 MMOL/L (-2.5-2.5); ABG HCO3 24.9 MMOL/L (20-26); ABG Oxygen Saturation 99.9 % (95-100); ABG PCO2 46.4 MM HG (35-48); ABG PH 7.362 (7.35-7.45); ABG TCO2 23.9 MMOL/L (23-27)
[2017-07-15 05:53] LABS: Calcium 7.9 MG/DL (8.5-10.1); Magnesium 2.3 MG/DL (1.8-2.4); Osmolality,Calculated 283.4 MOS/KG (273-304)
[2017-07-15] MEDS ORDERED: FUROSEMIDE 40 MG/4 ML VIAL IV ONE (06:13)
[2017-07-15 06:18] LABS: Free T4 (Free Thyroxine) 1.04 NG/DL (0.76-1.46); Thyroid Stimulating Hormone 1.06 uIU/ml (0.358-3.74)
[2017-07-15] MEDS: methylPREDNISolone SOD SUC 40 MG/1 ML VIAL IV SCH ×3 (06:18→23:11)
[2017-07-15] MEDS: PIPERACILLIN/TAZOBACTAM 3,375 MG in SODIUM CHLORIDE 0.9% 100 ML IV SCH ×3 (06:20→23:16)
[2017-07-15] MEDS: ALBUTEROL/IPRATROPIUM 3 ML NEB RESP TX SCH ×4 (06:51→19:03)
[2017-07-15] MEDS: DORNASE ALFA 2.5 MG/2.5 ML VIAL RESP TX SCH ×2 (06:57→19:11)
[2017-07-15] MEDS: INSULIN REGULAR 100 UNIT/ML SUBCUT SCH ×4 (07:08→23:32)
[2017-07-15] MEDS: SODIUM CHLORIDE 0.9% 1,000 ML IV SCH ×3 (07:28→21:39)
[2017-07-15] MEDS: fentaNYL INJ 1,250 MCG in SODIUM CHLORIDE 0.9% 225 ML IV SCH ×2 (07:32→10:58)
[2017-07-15] MEDS: MULTIVITAMIN (CENTRUM) TABLET PEG SCH (09:10)
[2017-07-15] MEDS: THIAMINE 100 MG TABLET PEG SCH (09:10)
[2017-07-15] MEDS: miSOPROStol 200 MCG TABLET PEG SCH (09:10)
[2017-07-15] MEDS: LEVOTHYROXINE 100 MCG TABLET PEG SCH (09:10)
[2017-07-15] MEDS: CLORAZEPATE 3.75 MG TABLET PEG SCH ×3 (09:10→21:38)
[2017-07-15] MEDS: IMIPRAMINE 50 MG TABLET PEG SCH (09:11)
[2017-07-15] MEDS: ASCORBIC ACID 500 MG TABLET PEG SCH (09:11)
[2017-07-15] MEDS: POTASSIUM CHLORIDE 20 MEQ/15 ML UDCUP PER TUBE SCH ×3 (09:11→21:38)
[2017-07-15] MEDS: FUROSEMIDE 20 MG TABLET PEG SCH (09:11)
[2017-07-15] MEDS: LIDOCAINE 5% PATCH TRANSDERM SCH (09:11)
[2017-07-15] MEDS: VANCOMYCIN INJ 1,500 MG in SODIUM CHLORIDE 0.9% 500 ML IV SCH (13:30)
[2017-07-15] MEDS: AMINOPHYLLINE 500 MG in SODIUM CHLORIDE 0.9% 480 ML IV SCH (15:11)
[2017-07-16 03:13] LABS: ABG Base Excess 3.1 MMOL/L (-2.5-2.5); ABG HCO3 27.2 MMOL/L (20-26); ABG Oxygen Saturation 99.7 % (95-100); ABG PCO2 40.7 MM HG (35-48); ABG PH 7.437 (7.35-7.45); ABG TCO2 24.7 MMOL/L (23-27); Allen Test Positive; Pt O2 Delivery Device Ventilator
[2017-07-16] MEDS: INSULIN REGULAR 100 UNIT/ML SUBCUT SCH ×3 (05:37→17:55)
[2017-07-16] MEDS: fentaNYL INJ 1,250 MCG in SODIUM CHLORIDE 0.9% 225 ML IV SCH ×3 (05:38→22:14)
[2017-07-16] MEDS: PIPERACILLIN/TAZOBACTAM 3,375 MG in SODIUM CHLORIDE 0.9% 100 ML IV SCH ×3 (05:56→22:46)
[2017-07-16] MEDS: methylPREDNISolone SOD SUC 40 MG/1 ML VIAL IV SCH ×3 (05:56→22:16)
[2017-07-16] MEDS ORDERED: FUROSEMIDE 40 MG/4 ML VIAL IV ONE (06:21)
[2017-07-16 06:27] LABS: Basophils % 0.1 % (0.0-0.8); Eosinophils % 0.1 % (0.00-10.9); Hematocrit 33.9 VOL% (42.0-52.0); Hemoglobin 11.1 GM/DL (14.0-18.0); Immature Granulocytes % 0.9 %; Lymphocytes # 0.2 10*3/uL (1.4-4.0); Mean Corpuscular HGB Conc 32.7 GM/DL (32-36); Mean Corpuscular Hemoglobin 31 PG (27-34); Mean Corpuscular Volume 95.8 FL (87-102); Mean Platelet Volume 11.9 FL (9.6-12.0); Monocytes # 0.8 10*3/uL (0.11-0.8); Monocytes % 6.7 % (1.7-12.7); Neutrophils # 10.1 10*3/uL (1.4-7.4); Neutrophils % 90.2 % (38.7-73.9); Platelet Count 194 T/CUMM (130-400); Red Blood Count 3.54 MC/CUMM (3.8-5.5); Red Cell Distribution Width 15.7 % (9.3-17.3); White Blood Count 11.2 T/CUMM (4-12)
[2017-07-16 06:44] LABS: Magnesium 2.2 MG/DL (1.8-2.4); Osmolality,Calculated 279.7 MOS/KG (273-304); Potassium 3.9 MMOL/L (3.5-5.1)
[2017-07-16] MEDS: ALBUTEROL/IPRATROPIUM 3 ML NEB RESP TX SCH ×4 (07:25→19:38)
[2017-07-16] MEDS: DORNASE ALFA 2.5 MG/2.5 ML VIAL RESP TX SCH ×2 (07:35→19:38)
[2017-07-16 07:56] LABS: Hypochromasia 2+; Microcytosis 1+; Polychromasia Slight
[2017-07-16] MEDS: VANCOMYCIN INJ 1,500 MG in SODIUM CHLORIDE 0.9% 500 ML IV SCH (08:16)
[2017-07-16] MEDS: FUROSEMIDE 20 MG TABLET PEG SCH (08:33)
[2017-07-16] MEDS: CLORAZEPATE 3.75 MG TABLET PEG SCH ×3 (08:33→22:14)
[2017-07-16] MEDS: MULTIVITAMIN (CENTRUM) TABLET PEG SCH (08:33)
[2017-07-16] MEDS: LEVOTHYROXINE 100 MCG TABLET PEG SCH (08:33)
[2017-07-16] MEDS: miSOPROStol 200 MCG TABLET PEG SCH (08:33)
[2017-07-16] MEDS: ASCORBIC ACID 500 MG TABLET PEG SCH (08:33)
[2017-07-16] MEDS: IMIPRAMINE 50 MG TABLET PEG SCH (08:34)
[2017-07-16] MEDS: THIAMINE 100 MG TABLET PEG SCH (08:34)
[2017-07-16] MEDS: POTASSIUM CHLORIDE 20 MEQ/15 ML UDCUP PER TUBE SCH ×3 (08:34→22:14)
[2017-07-16] MEDS: LIDOCAINE 5% PATCH TRANSDERM SCH (08:50)
[2017-07-16] MEDS: SODIUM CHLORIDE 0.9% 1,000 ML IV SCH (09:48)
[2017-07-16] MEDS: AMINOPHYLLINE 500 MG in SODIUM CHLORIDE 0.9% 480 ML IV SCH (14:59)
[2017-07-17] MEDS: INSULIN REGULAR 100 UNIT/ML SUBCUT SCH ×4 (00:10→18:31)
[2017-07-17 03:37] LABS: ABG Base Excess 5.2 MMOL/L (-2.5-2.5); ABG HCO3 28.3 MMOL/L (20-26); ABG Oxygen Saturation 98.5 % (95-100); ABG PCO2 36.4 MM HG (35-48); ABG PH 7.509 (7.35-7.45); ABG TCO2 29.4 MMOL/L (23-27); Allen Test Positive; Pt O2 Delivery Device Ventilator
[2017-07-17] MEDS: VANCOMYCIN INJ 1,500 MG in SODIUM CHLORIDE 0.9% 500 ML IV SCH ×2 (04:32→21:03)
[2017-07-17 05:20] LABS: Basophils % 0.1 % (0.0-0.8); Hematocrit 35.2 VOL% (42.0-52.0); Hemoglobin 11.6 GM/DL (14.0-18.0); Immature Granulocytes % 0.9 %; Lymphocytes # 0.2 10*3/uL (1.4-4.0); Lymphocytes % 2.1 % (21.2-54.2); Mean Corpuscular Hemoglobin 31 PG (27-34); Mean Corpuscular Volume 93.9 FL (87-102); Mean Platelet Volume 11.4 FL (9.6-12.0); Monocytes # 0.9 10*3/uL (0.11-0.8); Monocytes % 8.3 % (1.7-12.7); Neutrophils # 9.7 10*3/uL (1.4-7.4); Neutrophils % 88.6 % (38.7-73.9); Platelet Count 208 T/CUMM (130-400); Red Blood Count 3.75 MC/CUMM (3.8-5.5); Red Cell Distribution Width 15.9 % (9.3-17.3)
[2017-07-17 05:33] LABS: PT Patient Result 10.5 SECS; Partial Thromboplastin Time 24.6 SECS (0-40)
[2017-07-17 05:42] LABS: Giant Platelets Few; Hypochromasia 1+; Lymphocytes 2 % (20-55); Microcytosis 1+; Ovalocytes Slight; Platelet Estimate Adequate; Segmented Neutrophils 94 % (50-85); Total Cells Counted 100
[2017-07-17 05:51] LABS: Calcium 8.4 MG/DL (8.5-10.1); Magnesium 2.1 MG/DL (1.8-2.4); Osmolality,Calculated 282.5 MOS/KG (273-304); Potassium 3.8 MMOL/L (3.5-5.1)
[2017-07-17 05:54] LABS: Phosphorous 2.1 MG/DL (2.5-4.9); Prealbumin 24.5 MG/DL (20-40)
[2017-07-17] MEDS: PIPERACILLIN/TAZOBACTAM 3,375 MG in SODIUM CHLORIDE 0.9% 100 ML IV SCH ×3 (06:13→22:31)
[2017-07-17] MEDS: methylPREDNISolone SOD SUC 40 MG/1 ML VIAL IV SCH ×3 (06:39→22:24)
[2017-07-17] MEDS: fentaNYL INJ 1,250 MCG in SODIUM CHLORIDE 0.9% 225 ML IV SCH ×2 (07:39→20:20)
[2017-07-17] MEDS: ALBUTEROL/IPRATROPIUM 3 ML NEB RESP TX SCH ×4 (08:00→19:16)
[2017-07-17] MEDS: DORNASE ALFA 2.5 MG/2.5 ML VIAL RESP TX SCH ×2 (08:18→19:23)
[2017-07-17] MEDS: ASCORBIC ACID 500 MG TABLET PEG SCH (10:10)
[2017-07-17] MEDS: FUROSEMIDE 20 MG TABLET PEG SCH (10:10)
[2017-07-17] MEDS: THIAMINE 100 MG TABLET PEG SCH (10:12)
[2017-07-17] MEDS: CLORAZEPATE 3.75 MG TABLET PEG SCH ×3 (10:12→22:23)
[2017-07-17] MEDS: miSOPROStol 200 MCG TABLET PEG SCH (10:12)
[2017-07-17] MEDS: LEVOTHYROXINE 100 MCG TABLET PEG SCH (10:13)
[2017-07-17] MEDS: MULTIVITAMIN (CENTRUM) TABLET PEG SCH (10:13)
[2017-07-17] MEDS: POTASSIUM CHLORIDE 20 MEQ/15 ML UDCUP PER TUBE SCH ×3 (10:13→22:23)
[2017-07-17] MEDS: LIDOCAINE 5% PATCH TRANSDERM SCH (10:13)
[2017-07-17] MEDS: IMIPRAMINE 50 MG TABLET PEG SCH (10:15)
[2017-07-17] MEDS: AMINOPHYLLINE 500 MG in SODIUM CHLORIDE 0.9% 480 ML IV SCH (15:37)
[2017-07-18] MEDS: INSULIN REGULAR 100 UNIT/ML SUBCUT SCH ×4 (01:28→18:13)
[2017-07-18 03:29] LABS: ABG Base Excess 3.2 MMOL/L (-2.5-2.5); ABG HCO3 27.3 MMOL/L (20-26); ABG PCO2 31.7 MM HG (35-48); ABG PH 7.514 (7.35-7.45); ABG TCO2 22.2 MMOL/L (23-27); Pt O2 Delivery Device Ventilator
[2017-07-18 06:04] LABS: Basophils % 0.1 % (0.0-0.8); Hematocrit 36.3 VOL% (42.0-52.0); Hemoglobin 12.1 GM/DL (14.0-18.0); Immature Granulocytes % 1.6 %; Immature Granulocytes Absolute 0.17 #; Lymphocytes # 0.3 10*3/uL (1.4-4.0); Lymphocytes % 2.4 % (21.2-54.2); Mean Corpuscular HGB Conc 33.3 GM/DL (32-36); Mean Corpuscular Hemoglobin 31 PG (27-34); Mean Corpuscular Volume 93.6 FL (87-102); Mean Platelet Volume 11.7 FL (9.6-12.0); Neutrophils # 9.3 10*3/uL (1.4-7.4); Neutrophils % 86.9 % (38.7-73.9); Platelet Count 225 T/CUMM (130-400); Red Blood Count 3.88 MC/CUMM (3.8-5.5); Red Cell Distribution Width 16.3 % (9.3-17.3); White Blood Count 10.7 T/CUMM (4-12)
[2017-07-18 06:32] LABS: Giant Platelets Few; Hypochromasia 1+; Lymphocytes 1 % (20-55); Ovalocytes Slight; Platelet Estimate Adequate; Segmented Neutrophils 93 % (50-85); Total Cells Counted 100
[2017-07-18 06:33] LABS: Calcium 8.6 MG/DL (8.5-10.1); Magnesium 2.2 MG/DL (1.8-2.4); Microcytosis Slight; Osmolality,Calculated 281.5 MOS/KG (273-304); Potassium 3.8 MMOL/L (3.5-5.1)
[2017-07-18] MEDS: PIPERACILLIN/TAZOBACTAM 3,375 MG in SODIUM CHLORIDE 0.9% 100 ML IV SCH ×3 (06:41→22:18)
[2017-07-18] MEDS: methylPREDNISolone SOD SUC 40 MG/1 ML VIAL IV SCH ×3 (06:42→22:05)
[2017-07-18] MEDS: fentaNYL INJ 1,250 MCG in SODIUM CHLORIDE 0.9% 225 ML IV SCH ×3 (06:43→15:01)
[2017-07-18] MEDS: ALBUTEROL/IPRATROPIUM 3 ML NEB RESP TX SCH ×4 (07:53→19:15)
[2017-07-18] MEDS: DORNASE ALFA 2.5 MG/2.5 ML VIAL RESP TX SCH ×2 (07:59→19:20)
[2017-07-18] MEDS: IMIPRAMINE 50 MG TABLET PEG SCH (10:35)
[2017-07-18] MEDS: POTASSIUM CHLORIDE 20 MEQ/15 ML UDCUP PER TUBE SCH ×3 (10:44→22:05)
[2017-07-18] MEDS: THIAMINE 100 MG TABLET PEG SCH (10:45)
[2017-07-18] MEDS: miSOPROStol 200 MCG TABLET PEG SCH (10:45)
[2017-07-18] MEDS: FUROSEMIDE 20 MG TABLET PEG SCH (10:47)
[2017-07-18] MEDS: MULTIVITAMIN (CENTRUM) TABLET PEG SCH (10:47)
[2017-07-18] MEDS: ASCORBIC ACID 500 MG TABLET PEG SCH (10:47)
[2017-07-18] MEDS: LEVOTHYROXINE 100 MCG TABLET PEG SCH (10:47)
[2017-07-18] MEDS: LIDOCAINE 5% PATCH TRANSDERM SCH (10:48)
[2017-07-18] MEDS: AMINOPHYLLINE 500 MG in SODIUM CHLORIDE 0.9% 480 ML IV SCH (13:21)
[2017-07-18] MEDS: VANCOMYCIN INJ 1,500 MG in SODIUM CHLORIDE 0.9% 500 ML IV SCH (15:15)
[2017-07-19] MEDS: INSULIN REGULAR 100 UNIT/ML SUBCUT SCH ×4 (00:59→18:00)
[2017-07-19] MEDS: fentaNYL INJ 1,250 MCG in SODIUM CHLORIDE 0.9% 225 ML IV SCH ×2 (02:35→17:37)
[2017-07-19 06:15] LABS: Basophils % 0.1 % (0.0-0.8); Hematocrit 37.4 VOL% (42.0-52.0); Hemoglobin 12.4 GM/DL (14.0-18.0); Immature Granulocytes % 1.5 %; Immature Granulocytes Absolute 0.21 #; Lymphocytes # 0.2 10*3/uL (1.4-4.0); Lymphocytes % 1.5 % (21.2-54.2); Mean Corpuscular HGB Conc 33.2 GM/DL (32-36); Mean Corpuscular Hemoglobin 32 PG (27-34); Mean Corpuscular Volume 95.7 FL (87-102); Mean Platelet Volume 11.2 FL (9.6-12.0); Monocytes # 1.3 10*3/uL (0.11-0.8); Neutrophils # 12.2 10*3/uL (1.4-7.4); Neutrophils % 87.9 % (38.7-73.9); Platelet Count 210 T/CUMM (130-400); Red Blood Count 3.91 MC/CUMM (3.8-5.5); Red Cell Distribution Width 16.4 % (9.3-17.3); White Blood Count 13.9 T/CUMM (4-12)
[2017-07-19] MEDS: methylPREDNISolone SOD SUC 40 MG/1 ML VIAL IV SCH ×3 (06:40→21:45)
[2017-07-19] MEDS: PIPERACILLIN/TAZOBACTAM 3,375 MG in SODIUM CHLORIDE 0.9% 100 ML IV SCH ×3 (06:42→21:49)
[2017-07-19 06:44] LABS: Giant Platelets Few; Hypochromasia 1+; Lymphocytes 3 % (20-55); Ovalocytes Slight; Platelet Estimate Adequate; Segmented Neutrophils 88 % (50-85); Total Cells Counted 100
[2017-07-19] MEDS: ALBUTEROL/IPRATROPIUM 3 ML NEB RESP TX SCH ×4 (07:12→19:57)
[2017-07-19] MEDS: DORNASE ALFA 2.5 MG/2.5 ML VIAL RESP TX SCH ×2 (07:21→19:57)
[2017-07-19 07:25] LABS: ABG HCO3 31.6 MMOL/L (20-26); ABG PCO2 57.4 MM HG (35-48); ABG PH 7.359 (7.35-7.45); ABG PO2 115.7 MM HG (80-95); ABG TCO2 33.4 MMOL/L (23-27)
[2017-07-19 07:26] LABS: ABG Base Excess 4.7 MMOL/L (-2.5-2.5); ABG Oxygen Saturation 98.3 % (95-100)
[2017-07-19 07:36] LABS: Calcium 8.7 MG/DL (8.5-10.1); Magnesium 2.2 MG/DL (1.8-2.4); Osmolality,Calculated 282.5 MOS/KG (273-304); Potassium 3.8 MMOL/L (3.5-5.1)
[2017-07-19] MEDS: LIDOCAINE 5% PATCH TRANSDERM SCH (08:09)
[2017-07-19] MEDS: POTASSIUM CHLORIDE 20 MEQ/15 ML UDCUP PER TUBE PRN (08:10)
[2017-07-19] MEDS: POTASSIUM CHLORIDE 20 MEQ/15 ML UDCUP PER TUBE SCH ×3 (08:10→21:49)
[2017-07-19] MEDS: MULTIVITAMIN (CENTRUM) TABLET PEG SCH (08:11)
[2017-07-19] MEDS: LEVOTHYROXINE 100 MCG TABLET PEG SCH (08:11)
[2017-07-19] MEDS: IMIPRAMINE 50 MG TABLET PEG SCH (08:11)
[2017-07-19] MEDS: ASCORBIC ACID 500 MG TABLET PEG SCH (08:11)
[2017-07-19] MEDS: FUROSEMIDE 20 MG TABLET PEG SCH (08:11)
[2017-07-19] MEDS: THIAMINE 100 MG TABLET PEG SCH (08:11)
[2017-07-19] MEDS: miSOPROStol 200 MCG TABLET PEG SCH (08:11)
[2017-07-19] MEDS: VANCOMYCIN INJ 1,500 MG in SODIUM CHLORIDE 0.9% 500 ML IV SCH (08:24)
[2017-07-19] MEDS: AMINOPHYLLINE 500 MG in SODIUM CHLORIDE 0.9% 480 ML IV SCH (20:10)
[2017-07-20] MEDS: INSULIN REGULAR 100 UNIT/ML SUBCUT SCH ×4 (01:09→18:24)
[2017-07-20 02:34] LABS: ABG Base Excess 5.8 MMOL/L (-2.5-2.5); ABG HCO3 29.6 MMOL/L (20-26); ABG Oxygen Saturation 98.8 % (95-100); ABG PH 7.487 (7.35-7.45); ABG PO2 141.9 MM HG (80-95); ABG TCO2 30.8 MMOL/L (23-27)
[2017-07-20] MEDS: VANCOMYCIN INJ 1,500 MG in SODIUM CHLORIDE 0.9% 500 ML IV SCH ×2 (02:50→19:50)
[2017-07-20 04:25] LABS: Magnesium 2.2 MG/DL (1.8-2.4); Phosphorous 2.4 MG/DL (2.5-4.9); Prealbumin 27.3 MG/DL (20-40)
[2017-07-20] MEDS: fentaNYL INJ 1,250 MCG in SODIUM CHLORIDE 0.9% 225 ML IV SCH ×2 (05:37→18:32)
[2017-07-20] MEDS: methylPREDNISolone SOD SUC 40 MG/1 ML VIAL IV SCH ×3 (06:13→21:38)
[2017-07-20] MEDS: PIPERACILLIN/TAZOBACTAM 3,375 MG in SODIUM CHLORIDE 0.9% 100 ML IV SCH (06:16)
[2017-07-20] MEDS: ALBUTEROL/IPRATROPIUM 3 ML NEB RESP TX SCH ×5 (07:21→22:58)
[2017-07-20 07:42] LABS: Allen Test Positive
[2017-07-20 07:43] LABS: ABG Base Excess 3.7 MMOL/L (-2.5-2.5); ABG Oxygen Saturation 98.6 % (95-100); ABG PCO2 52.4 MM HG (35-48); ABG PH 7.375 (7.35-7.45); ABG PO2 122.4 MM HG (80-95); ABG TCO2 31.6 MMOL/L (23-27)
[2017-07-20] MEDS: DORNASE ALFA 2.5 MG/2.5 ML VIAL RESP TX SCH ×2 (07:54→19:04)
[2017-07-20] MEDS: POTASSIUM CHLORIDE 20 MEQ/15 ML UDCUP PER TUBE SCH ×3 (09:10→21:39)
[2017-07-20] MEDS: miSOPROStol 200 MCG TABLET PEG SCH (09:10)
[2017-07-20] MEDS: LEVOTHYROXINE 100 MCG TABLET PEG SCH (09:10)
[2017-07-20] MEDS: ASCORBIC ACID 500 MG TABLET PEG SCH (09:10)
[2017-07-20] MEDS: MULTIVITAMIN (CENTRUM) TABLET PEG SCH (09:10)
[2017-07-20] MEDS: IMIPRAMINE 50 MG TABLET PEG SCH (09:10)
[2017-07-20] MEDS: THIAMINE 100 MG TABLET PEG SCH (09:10)
[2017-07-20] MEDS: LIDOCAINE 5% PATCH TRANSDERM SCH (09:10)
[2017-07-20] MEDS: FUROSEMIDE 20 MG TABLET PEG SCH (09:10)
[2017-07-20] MEDS: IMIPENEM/CILASTATIN 500 MG in SODIUM CHLORIDE 0.9% 100 ML IV SCH ×2 (13:54→21:35)
[2017-07-20] MEDS: AMINOPHYLLINE 500 MG in SODIUM CHLORIDE 0.9% 480 ML IV SCH (20:51)
[2017-07-20] MEDS ORDERED: CHLORHEXIDINE 4% SOLN 118 ML BOTTLE TOP ONE (21:00)
[2017-07-21] MEDS: INSULIN REGULAR 100 UNIT/ML SUBCUT SCH ×4 (00:17→17:38)
[2017-07-21 04:02] LABS: ABG Base Excess 2.3 MMOL/L (-2.5-2.5); ABG HCO3 26.5 MMOL/L (20-26); ABG Oxygen Saturation 99.9 % (95-100); ABG PCO2 37.7 MM HG (35-48); ABG TCO2 23.3 MMOL/L (23-27); Allen Test Positive; Pt O2 Delivery Device Ventilator
[2017-07-21 04:50] LABS: Calcium 8.5 MG/DL (8.5-10.1); Magnesium 2.2 MG/DL (1.8-2.4); Osmolality,Calculated 279.7 MOS/KG (273-304); Potassium 3.9 MMOL/L (3.5-5.1)
[2017-07-21] MEDS: methylPREDNISolone SOD SUC 40 MG/1 ML VIAL IV SCH ×3 (05:25→21:13)
[2017-07-21] MEDS: IMIPENEM/CILASTATIN 500 MG in SODIUM CHLORIDE 0.9% 100 ML IV SCH ×3 (05:30→21:10)
[2017-07-21] MEDS: fentaNYL INJ 1,250 MCG in SODIUM CHLORIDE 0.9% 225 ML IV SCH ×3 (06:47→21:19)
[2017-07-21 07:14] LABS: Basophils % 0.1 % (0.0-0.8); Hematocrit 33.6 VOL% (42.0-52.0); Hemoglobin 11.3 GM/DL (14.0-18.0); Immature Granulocytes Absolute 0.11 #; Lymphocytes # 0.2 10*3/uL (1.4-4.0); Lymphocytes % 1.6 % (21.2-54.2); Mean Corpuscular HGB Conc 33.6 GM/DL (32-36); Mean Corpuscular Hemoglobin 31 PG (27-34); Mean Corpuscular Volume 93.3 FL (87-102); Mean Platelet Volume 11.1 FL (9.6-12.0); Monocytes # 0.7 10*3/uL (0.11-0.8); Monocytes % 6.8 % (1.7-12.7); Neutrophils # 9.9 10*3/uL (1.4-7.4); Neutrophils % 90.5 % (38.7-73.9); Platelet Count 172 T/CUMM (130-400); Red Cell Distribution Width 16.7 % (9.3-17.3); White Blood Count 10.9 T/CUMM (4-12)
[2017-07-21] MEDS: ALBUTEROL/IPRATROPIUM 3 ML NEB RESP TX SCH ×5 (07:57→19:31)
[2017-07-21 07:59] LABS: Hypochromasia 2+; Macrocytosis 2+; Polychromasia Slight
[2017-07-21] MEDS: DORNASE ALFA 2.5 MG/2.5 ML VIAL RESP TX SCH ×2 (08:22→19:31)
[2017-07-21] MEDS: IMIPRAMINE 50 MG TABLET PEG SCH (08:27)
[2017-07-21] MEDS: LEVOTHYROXINE 100 MCG TABLET PEG SCH (08:27)
[2017-07-21] MEDS: MULTIVITAMIN (CENTRUM) TABLET PEG SCH (08:27)
[2017-07-21] MEDS: miSOPROStol 200 MCG TABLET PEG SCH (08:27)
[2017-07-21] MEDS: THIAMINE 100 MG TABLET PEG SCH (08:27)
[2017-07-21] MEDS: ASCORBIC ACID 500 MG TABLET PEG SCH (08:27)
[2017-07-21] MEDS: FUROSEMIDE 20 MG TABLET PEG SCH (08:27)
[2017-07-21] MEDS: LIDOCAINE 5% PATCH TRANSDERM SCH (08:28)
[2017-07-21] MEDS: AMINOPHYLLINE 500 MG in SODIUM CHLORIDE 0.9% 480 ML IV SCH ×3 (08:29→19:31)
[2017-07-21] MEDS: POTASSIUM CHLORIDE 20 MEQ/15 ML UDCUP PER TUBE SCH ×3 (08:29→21:17)
[2017-07-21] MEDS ORDERED: LIDOCAINE 1%/EPI INJ 20 ML VIAL ONE (09:38)
[2017-07-21] MEDS ORDERED: OXYMETAZOLINE 0.05% NASAL SPRAY 15 ML BOTTLE ONE (09:38)
[2017-07-21] MEDS ORDERED: ROCURONIUM 100 MG/10 ML VIAL IV ONE (11:27)
[2017-07-21] MEDS ORDERED: PROPOFOL 200 MG/20 ML VIAL IV ONE (11:27)
[2017-07-21] MEDS ORDERED: SEVOFLURANE 1 UNIT/15 MINUTE INH ONE (11:27)
[2017-07-21] MEDS ORDERED: MIDAZOLAM 2 MG/2 ML VIAL ONE (11:27)
[2017-07-21] MEDS: VANCOMYCIN INJ 1,500 MG in SODIUM CHLORIDE 0.9% 500 ML IV SCH (14:25)
[2017-07-21] MEDS: ALBUTEROL/IPRATROPIUM 3 ML NEB RESP TX PRN (23:56)
[2017-07-22 04:38] LABS: ABG Base Excess 2.1 MMOL/L (-2.5-2.5); ABG HCO3 26.5 MMOL/L (20-26); ABG Oxygen Saturation 98.9 % (95-100); ABG PCO2 40.7 MM HG (35-48); ABG PH 7.432 (7.35-7.45); ABG PO2 147.8 MM HG (80-95); ABG TCO2 27.8 MMOL/L (23-27); Pt O2 Delivery Device Ventilator
[2017-07-22 04:55] LABS: Basophils % 0.1 % (0.0-0.8); Hematocrit 34.9 VOL% (42.0-52.0); Hemoglobin 11.8 GM/DL (14.0-18.0); Immature Granulocytes Absolute 0.16 #; Lymphocytes # 0.2 10*3/uL (1.4-4.0); Lymphocytes % 1.1 % (21.2-54.2); Mean Corpuscular HGB Conc 33.8 GM/DL (32-36); Mean Corpuscular Hemoglobin 32 PG (27-34); Mean Corpuscular Volume 93.6 FL (87-102); Mean Platelet Volume 11.4 FL (9.6-12.0); Monocytes # 0.8 10*3/uL (0.11-0.8); Monocytes % 5.5 % (1.7-12.7); Neutrophils # 14.2 10*3/uL (1.4-7.4); Neutrophils % 92.3 % (38.7-73.9); Platelet Count 192 T/CUMM (130-400); Red Blood Count 3.73 MC/CUMM (3.8-5.5); Red Cell Distribution Width 16.7 % (9.3-17.3); White Blood Count 15.3 T/CUMM (4-12)
[2017-07-22 05:28] LABS: Calcium 8.5 MG/DL (8.5-10.1)
[2017-07-22 05:29] LABS: Magnesium 2.2 MG/DL (1.8-2.4); Osmolality,Calculated 281.5 MOS/KG (273-304); Potassium 3.8 MMOL/L (3.5-5.1)
[2017-07-22] MEDS: INSULIN REGULAR 100 UNIT/ML SUBCUT SCH ×4 (05:30→17:38)
[2017-07-22 06:05] LABS: Segmented Neutrophils 93 % (50-85); Total Cells Counted 100
[2017-07-22] MEDS: IMIPENEM/CILASTATIN 500 MG in SODIUM CHLORIDE 0.9% 100 ML IV SCH ×3 (06:05→21:39)
[2017-07-22 06:06] LABS: Eosinophils 5 % (0-10); Platelet Estimate Normal
[2017-07-22] MEDS: methylPREDNISolone SOD SUC 40 MG/1 ML VIAL IV SCH ×2 (06:06→18:22)
[2017-07-22 06:07] LABS: Hypochromasia 2+
[2017-07-22] MEDS: AMINOPHYLLINE 500 MG in SODIUM CHLORIDE 0.9% 480 ML IV SCH ×2 (06:15→17:41)
[2017-07-22] MEDS: ALBUTEROL/IPRATROPIUM 3 ML NEB RESP TX SCH ×4 (06:54→20:05)
[2017-07-22] MEDS: DORNASE ALFA 2.5 MG/2.5 ML VIAL RESP TX SCH ×2 (06:54→20:05)
[2017-07-22] MEDS ORDERED: methylPREDNISolone SOD SUC 40 MG/1 ML VIAL IV SCH (07:00)
[2017-07-22] MEDS: FUROSEMIDE 40 MG/4 ML VIAL IV SCH ×2 (07:43→15:23)
[2017-07-22] MEDS: miSOPROStol 200 MCG TABLET PEG SCH (09:00)
[2017-07-22] MEDS: LEVOTHYROXINE 100 MCG TABLET PEG SCH (09:00)
[2017-07-22] MEDS: THIAMINE 100 MG TABLET PEG SCH (09:00)
[2017-07-22] MEDS: POTASSIUM CHLORIDE 20 MEQ/15 ML UDCUP PER TUBE SCH ×3 (09:00→21:34)
[2017-07-22] MEDS: ASCORBIC ACID 500 MG TABLET PEG SCH (09:00)
[2017-07-22] MEDS: MULTIVITAMIN (CENTRUM) TABLET PEG SCH (09:00)
[2017-07-22] MEDS: LIDOCAINE 5% PATCH TRANSDERM SCH (09:00)
[2017-07-22] MEDS: IMIPRAMINE 50 MG TABLET PEG SCH (09:00)
[2017-07-22] MEDS: SPIRONOLACTONE 25 MG TABLET PO SCH ×2 (09:00→21:34)
[2017-07-22] MEDS: VANCOMYCIN INJ 1,500 MG in SODIUM CHLORIDE 0.9% 500 ML IV SCH (09:43)
[2017-07-22] MEDS: fentaNYL INJ 1,250 MCG in SODIUM CHLORIDE 0.9% 225 ML IV SCH (10:38)
[2017-07-22] MEDS ORDERED: ZALEPLON 5 MG CAPSULE PO PRN (20:57)
[2017-07-23] MEDS: fentaNYL INJ 1,250 MCG in SODIUM CHLORIDE 0.9% 225 ML IV SCH ×3 (00:06→13:27)
[2017-07-23] MEDS: INSULIN REGULAR 100 UNIT/ML SUBCUT SCH ×5 (00:29→23:59)
[2017-07-23] MEDS: VANCOMYCIN INJ 1,500 MG in SODIUM CHLORIDE 0.9% 500 ML IV SCH ×2 (02:04→19:34)
[2017-07-23 03:43] LABS: ABG Base Excess 3.6 MMOL/L (-2.5-2.5); ABG HCO3 27.7 MMOL/L (20-26); ABG PCO2 44.2 MM HG (35-48); ABG PH 7.419 (7.35-7.45); ABG TCO2 25.6 MMOL/L (23-27); Pt O2 Delivery Device Ventilator
[2017-07-23 04:22] LABS: Basophils % 0.1 % (0.0-0.8); Hematocrit 32.8 VOL% (42.0-52.0); Hemoglobin 10.9 GM/DL (14.0-18.0); Immature Granulocytes % 1.1 %; Immature Granulocytes Absolute 0.16 #; Lymphocytes # 0.2 10*3/uL (1.4-4.0); Mean Corpuscular HGB Conc 33.2 GM/DL (32-36); Mean Corpuscular Hemoglobin 31 PG (27-34); Mean Corpuscular Volume 94.5 FL (87-102); Mean Platelet Volume 11.4 FL (9.6-12.0); Monocytes # 1.1 10*3/uL (0.11-0.8); Monocytes % 7.2 % (1.7-12.7); Neutrophils # 13.6 10*3/uL (1.4-7.4); Neutrophils % 90.6 % (38.7-73.9); Platelet Count 190 T/CUMM (130-400); Red Blood Count 3.47 MC/CUMM (3.8-5.5); Red Cell Distribution Width 16.7 % (9.3-17.3); White Blood Count 15.1 T/CUMM (4-12)
[2017-07-23 04:47] LABS: Band Neutrophils 1 % (0-10); Lymphocytes 2 % (20-55); Segmented Neutrophils 94 % (50-85)
[2017-07-23 04:48] LABS: Microcytosis Slight; Platelet Estimate Normal
[2017-07-23 04:49] LABS: Total Cells Counted 100
[2017-07-23 04:50] LABS: Calcium 8.7 MG/DL (8.5-10.1); Magnesium 2.2 MG/DL (1.8-2.4); Osmolality,Calculated 280.5 MOS/KG (273-304)
[2017-07-23] MEDS: methylPREDNISolone SOD SUC 40 MG/1 ML VIAL IV SCH ×2 (05:55→18:14)
[2017-07-23] MEDS: IMIPENEM/CILASTATIN 500 MG in SODIUM CHLORIDE 0.9% 100 ML IV SCH ×3 (05:57→21:29)
[2017-07-23] MEDS: ALBUTEROL/IPRATROPIUM 3 ML NEB RESP TX SCH ×4 (07:15→19:37)
[2017-07-23] MEDS: DORNASE ALFA 2.5 MG/2.5 ML VIAL RESP TX SCH ×2 (07:15→19:43)
[2017-07-23] MEDS: miSOPROStol 200 MCG TABLET PEG SCH (08:15)
[2017-07-23] MEDS: LEVOTHYROXINE 100 MCG TABLET PEG SCH (08:15)
[2017-07-23] MEDS: THIAMINE 100 MG TABLET PEG SCH (08:15)
[2017-07-23] MEDS: LIDOCAINE 5% PATCH TRANSDERM SCH (08:15)
[2017-07-23] MEDS: POTASSIUM CHLORIDE 20 MEQ/15 ML UDCUP PER TUBE SCH ×3 (08:15→21:29)
[2017-07-23] MEDS: IMIPRAMINE 50 MG TABLET PEG SCH (08:15)
[2017-07-23] MEDS: SPIRONOLACTONE 25 MG TABLET PO SCH ×2 (08:15→21:29)
[2017-07-23] MEDS: MULTIVITAMIN (CENTRUM) TABLET PEG SCH (08:15)
[2017-07-23] MEDS: ASCORBIC ACID 500 MG TABLET PEG SCH (08:15)
[2017-07-23] MEDS: FUROSEMIDE 40 MG/4 ML VIAL IV SCH ×2 (08:16→15:33)
[2017-07-23] MEDS: AMINOPHYLLINE 500 MG in SODIUM CHLORIDE 0.9% 480 ML IV SCH (13:52)
[2017-07-24] MEDS: fentaNYL INJ 1,250 MCG in SODIUM CHLORIDE 0.9% 225 ML IV SCH (01:27)
[2017-07-24 03:42] LABS: ABG Base Excess 4.7 MMOL/L (-2.5-2.5); ABG HCO3 28.7 MMOL/L (20-26); ABG Oxygen Saturation 99.4 % (95-100); ABG PCO2 42.8 MM HG (35-48); ABG PH 7.443 (7.35-7.45)
[2017-07-24 05:16] LABS: Magnesium 2.2 MG/DL (1.8-2.4); Phosphorous 2.8 MG/DL (2.5-4.9); Prealbumin 28.9 MG/DL (20-40)
[2017-07-24] MEDS: IMIPENEM/CILASTATIN 500 MG in SODIUM CHLORIDE 0.9% 100 ML IV SCH (05:22)
[2017-07-24] MEDS: methylPREDNISolone SOD SUC 40 MG/1 ML VIAL IV SCH (05:23)
[2017-07-24] MEDS: INSULIN REGULAR 100 UNIT/ML SUBCUT SCH (06:20)
[2017-07-24] MEDS: ALBUTEROL/IPRATROPIUM 3 ML NEB RESP TX SCH ×2 (07:11→10:56)
[2017-07-24] MEDS: DORNASE ALFA 2.5 MG/2.5 ML VIAL RESP TX SCH (07:24)
[2017-07-24] MEDS: FUROSEMIDE 40 MG/4 ML VIAL IV SCH (08:36)
[2017-07-24] MEDS: SPIRONOLACTONE 25 MG TABLET PO SCH (08:43)
[2017-07-24] MEDS: ASCORBIC ACID 500 MG TABLET PEG SCH (08:43)
[2017-07-24] MEDS: POTASSIUM CHLORIDE 20 MEQ/15 ML UDCUP PER TUBE SCH (08:44)
[2017-07-24] MEDS: MULTIVITAMIN (CENTRUM) TABLET PEG SCH (08:44)
[2017-07-24] MEDS: LEVOTHYROXINE 100 MCG TABLET PEG SCH (08:44)
[2017-07-24] MEDS: miSOPROStol 200 MCG TABLET PEG SCH (08:44)
[2017-07-24] MEDS: LIDOCAINE 5% PATCH TRANSDERM SCH (08:45)
[2017-07-24] MEDS: THIAMINE 100 MG TABLET PEG SCH (08:47)
[2017-07-24] MEDS: IMIPRAMINE 50 MG TABLET PEG SCH (08:48)
[2017-07-24] MEDS ORDERED: THEOPHYLLINE ER (24 HR) 200 MG CAPSULE PO SCH (11:00)
[2017-07-24] MEDS: AMINOPHYLLINE 500 MG in SODIUM CHLORIDE 0.9% 480 ML IV SCH (11:02)
[2017-07-24] MEDS ORDERED: THEOPHYLLINE 5.33 MG/ML 30 ML/BOTTLE PER TUBE SCH (11:15)
[2017-07-24 12:11] VITALS: BP 165/91
== END 2017-07-24 12:58 | DRG 3 ==
LOC: EDBD → EDUNIT# → N.ED 19:22 → N.ICU 07-09 01:00 → SUATTDRO 07-09 01:00 → N.ICU 07-09 02:48
PROVIDERS: ADMIT Internal Medicine Geriatric Medicine; ATTEND Family Medicine

== ENCOUNTER 2018-07-11 09:10 | Inpatient (IN) ==
[2018-07-11] MEDS ORDERED: ALBUTEROL 2.5 MG/3 ML NEB RESP TX STA (09:28)
[2018-07-11] MEDS ORDERED: methylPREDNISolone SOD SUC 125 MG/2 ML VIAL IV STA (09:28)
[2018-07-11 09:32] LABS: Basophils # 0.1 10*3/uL (0.0-0.2); Basophils % 1.2 % (0.0-0.8); Eosinophils # 0.6 10*3/uL (0.0-0.87); Eosinophils % 5.7 % (0.00-10.9); Hematocrit 46.6 VOL% (42.0-52.0); Hemoglobin 15.1 GM/DL (14.0-18.0); Immature Granulocytes % 1.3 %; Immature Granulocytes Absolute 0.14 #; Lymphocytes # 3.5 10*3/uL (1.4-4.0); Lymphocytes % 31.1 % (21.2-54.2); Mean Corpuscular HGB Conc 32.4 GM/DL (32-36); Mean Corpuscular Hemoglobin 34 PG (27-34); Mean Corpuscular Volume 104.3 FL (87-102); Mean Platelet Volume 11.1 FL (9.6-12.0); Monocytes % 8.5 % (1.7-12.7); Neutrophils # 5.8 10*3/uL (1.4-7.4); Neutrophils % 52.2 % (38.7-73.9); Platelet Count 272 T/CUMM (130-400); Red Blood Count 4.47 MC/CUMM (3.8-5.5); Red Cell Distribution Width 12.7 % (9.3-17.3); White Blood Count 11.1 T/CUMM (4-12)
[2018-07-11] MEDS ORDERED: LORazepam 2 MG/1 ML VIAL ONE ×2 (09:38→16:37)
[2018-07-11] MEDS ORDERED: LORazepam 2 MG/1 ML VIAL IV STA ×2 (09:41→09:58)
[2018-07-11 09:42] LABS: ABG Base Excess -2.2 MMOL/L (-2.5-2.5); ABG HCO3 29.1 MMOL/L (20-26); ABG Oxygen Saturation 79.3 % (95-100); ABG PO2 57.7 MM HG (80-95); ABG TCO2 31.6 MMOL/L (23-27)
[2018-07-11 09:42] LABS: INR 0.9; Partial Thromboplastin Time 26.8 SECS (0-40)
[2018-07-11 09:44] LABS: ABG PCO2 80.8 MM HG (35-48); ABG PH 7.174 (7.35-7.45)
[2018-07-11] MEDS ORDERED: PIPERACILLIN/TAZOBACTAM 3,375 MG in SODIUM CHLORIDE 0.9% 100 ML IV STA (09:45)
[2018-07-11 09:51] LABS: Amorphous Crystals,Urine Occasional /HPF (Few); Apearance,Urine Slightly Hazy (Clear); Bacteria,Urine Occasional /HPF (Few); Bilirubin,Urine Negative (Negative); Blood, Urine Negative (Negative); Glucose,Urine (UA) Negative (Negative); Hyaline Casts,Urine 30 /LPF (0-3); Ketones,Urine Negative (Negative); Mucus,Urine Occasional /LPF (Occasional); Nitrite,Urine Negative (Negative); Protein,Urine 100 MG/DL; RBC,Urine 4 /HPF (0-4); Urine Color Yellow (Yellow); Urine Specific Gravity 1.011 (1.001-1.035); WBC,Urine 18 /HPF (0-6)
[2018-07-11 09:54] LABS: Alanine Aminotransferase 19 U/L (16-61); Albumin 3.8 G/DL (3.4-5.0); Alkaline Phosphatase 121 U/L (45-117); Aspartate Amino Transferase 22 U/L (0-37); Blood Urea Nitrogen 15 MG/DL (7-18); Glucose 235 MG/DL (74-106); Osmolality,Calculated 283.7 MOS/KG (273-304); Potassium 4.4 MMOL/L (3.5-5.1); Sodium 138 MMOL/L (136-145); Total Protein 7.9 G/DL (6.4-8.3)
[2018-07-11 09:56] LABS: Lactic Acid 6.3 MMOL/L (0.4-2.0)
[2018-07-11 09:59] LABS: Ammonia 58 UMOL/L (11-32)
[2018-07-11 10:04] LABS: Barbiturates Screen,Urine Negative (Negative); Benzodiazepines Screen,Urine Positive (Negative); Cannabinoid Screen,Urine Positive (Negative); Opiate Screen,Urine Negative (Negative); Phencyclidine Screen,Urine Negative (Negative)
[2018-07-11] MEDS ORDERED: DEXTROSE 50% 25 GM/50 ML VIAL IV PRN (10:55)
[2018-07-11] MEDS ORDERED: ONDANSETRON 4 MG/2 ML VIAL IV PRN (10:55)
[2018-07-11] MEDS ORDERED: GLUCAGON 1 MG VIAL IM PRN (10:55)
[2018-07-11] MEDS ORDERED: ACETAMINOPHEN 325 MG TABLET PO PRN (10:55)
[2018-07-11] MEDS ORDERED: ALBUTEROL 2.5 MG/3 ML NEB RESP TX SCH (11:00)
[2018-07-11] MEDS ORDERED: CYANOCOBALAMIN 1000 MCG/1 ML VIAL IM SCH (13:00)
[2018-07-11] MEDS: SODIUM CHLORIDE 0.9% 1,000 ML IV SCH (13:39)
[2018-07-11] MEDS: INSULIN LISPRO 100 UNIT/ML SUBCUT SCH ×3 (13:44→20:22)
[2018-07-11] MEDS: ENOXAPARIN 40 MG/0.4 ML SYRINGE SUBCUT SCH (13:48)
[2018-07-11] MEDS ORDERED: SODIUM CHLORIDE 0.9% 2,000 ML IV ONE (14:44)
[2018-07-11] MEDS: ALBUTEROL 2.5 MG/3 ML NEB RESP TX SCH ×3 (14:50→23:07)
[2018-07-11 14:52] LABS: ABG Base Excess 1.5 MMOL/L (-2.5-2.5); ABG HCO3 25.6 MMOL/L (20-26); ABG PCO2 45.4 MM HG (35-48); ABG PH 7.384 (7.35-7.45); ABG PO2 73.2 MM HG (80-95); ABG TCO2 23.3 MMOL/L (23-27); Pt O2 Delivery Device BIPAP
[2018-07-11] MEDS: guaiFENesin 200 MG/10 ML UDCUP PO SCH ×3 (15:25→21:36)
[2018-07-11] MEDS: AZITHROMYCIN INJ 500 MG in SODIUM CHLORIDE 0.9% 250 ML IV SCH (15:56)
[2018-07-11] MEDS: LORazepam 2 MG/1 ML VIAL IV PRN ×2 (16:39→19:30)
[2018-07-11] MEDS: PIPERACILLIN/TAZOBACTAM 3,375 MG in SODIUM CHLORIDE 0.9% 100 ML IV SCH (17:03)
[2018-07-11] MEDS: THEOPHYLLINE 5.33 MG/ML 30 ML/BOTTLE PO SCH ×2 (17:03→20:19)
[2018-07-11] MEDS: IBUPROFEN 100 MG/5 ML UDCUP PO SCH (17:12)
[2018-07-11] MEDS ORDERED: INFLUENZA VIRUS VACCINE 0.5 ML SYRINGE IM ONE (18:06)
[2018-07-11] MEDS: MORPHINE 4 MG/1 ML VIAL IV PRN ×2 (20:07→22:49)
[2018-07-11] MEDS: FUROSEMIDE 40 MG TABLET PO SCH (20:22)
[2018-07-11] MEDS: POTASSIUM CHLORIDE 20 MEQ/15 ML UDCUP PO SCH (21:36)
[2018-07-12] MEDS: LORazepam 2 MG/1 ML VIAL IV PRN ×2 (00:23→03:21)
[2018-07-12] MEDS: MORPHINE 4 MG/1 ML VIAL IV PRN (01:50)
[2018-07-12] MEDS: PIPERACILLIN/TAZOBACTAM 3,375 MG in SODIUM CHLORIDE 0.9% 100 ML IV SCH ×3 (01:51→17:00)
[2018-07-12] MEDS: guaiFENesin 200 MG/10 ML UDCUP PO SCH ×6 (01:51→21:04)
[2018-07-12 03:13] LABS: Basophils % 0.1 % (0.0-0.8); Hematocrit 38.8 VOL% (42.0-52.0); Hemoglobin 12.9 GM/DL (14.0-18.0); Immature Granulocytes % 0.7 %; Immature Granulocytes Absolute 0.07 #; Lymphocytes # 0.4 10*3/uL (1.4-4.0); Lymphocytes % 4.2 % (21.2-54.2); Mean Corpuscular HGB Conc 33.2 GM/DL (32-36); Mean Corpuscular Hemoglobin 34 PG (27-34); Mean Platelet Volume 10.9 FL (9.6-12.0); Monocytes # 0.9 10*3/uL (0.11-0.8); Monocytes % 9.4 % (1.7-12.7); Neutrophils # 8.4 10*3/uL (1.4-7.4); Neutrophils % 85.6 % (38.7-73.9); Platelet Count 182 T/CUMM (130-400); Red Blood Count 3.84 MC/CUMM (3.8-5.5); Red Cell Distribution Width 12.9 % (9.3-17.3); White Blood Count 9.8 T/CUMM (4-12)
[2018-07-12 03:34] LABS: Calcium 8.5 MG/DL (8.5-10.1); Osmolality,Calculated 281.3 MOS/KG (273-304); Potassium 3.6 MMOL/L (3.5-5.1); Troponin I 0.038 NG/ML (0.00-0.045)
[2018-07-12] MEDS: ALBUTEROL 2.5 MG/3 ML NEB RESP TX SCH ×5 (04:02→20:18)
[2018-07-12 04:07] LABS: ABG Base Excess 2.1 MMOL/L (-2.5-2.5); ABG HCO3 27.9 MMOL/L (20-26); ABG Oxygen Saturation 94.6 % (95-100); ABG PCO2 48.4 MM HG (35-48); ABG PH 7.379 (7.35-7.45); ABG PO2 76.9 MM HG (80-95); ABG TCO2 29.4 MMOL/L (23-27); Allen Test Positive; Pt O2 Delivery Device CPAP
[2018-07-12] MEDS: THEOPHYLLINE 5.33 MG/ML 30 ML/BOTTLE PO SCH ×3 (08:19→21:04)
[2018-07-12] MEDS: POTASSIUM CHLORIDE 20 MEQ/15 ML UDCUP PO SCH ×2 (08:19→21:03)
[2018-07-12] MEDS: IBUPROFEN 100 MG/5 ML UDCUP PO SCH ×2 (08:20→16:32)
[2018-07-12] MEDS: PANTOPRAZOLE 40 MG TABLET PO SCH (08:21)
[2018-07-12] MEDS: FUROSEMIDE 40 MG TABLET PO SCH ×2 (08:21→21:04)
[2018-07-12] MEDS: LEVOTHYROXINE 100 MCG TABLET PO SCH (08:22)
[2018-07-12] MEDS: FERROUS SULFATE 325 MG TABLET PO SCH (08:23)
[2018-07-12] MEDS: INSULIN LISPRO 100 UNIT/ML SUBCUT SCH ×4 (08:28→21:05)
[2018-07-12] MEDS: SODIUM CHLORIDE 0.9% 1,000 ML IV SCH (08:32)
[2018-07-12] MEDS ORDERED: PHENYTOIN INJ 500 MG in SODIUM CHLORIDE 0.9% 100 ML IV ONE (10:00)
[2018-07-12 10:24] LABS: Free T4 (Free Thyroxine) 1.22 NG/DL (0.76-1.46); Thyroid Stimulating Hormone 0.341 uIU/ml (0.358-3.74)
[2018-07-12] MEDS ORDERED: SKIN HEALING OINT (AQUAPHOR) 50 GM TUBE TOP PRN (12:57)
[2018-07-12] MEDS: ENOXAPARIN 40 MG/0.4 ML SYRINGE SUBCUT SCH (13:13)
[2018-07-12] MEDS: ZINC OXIDE PASTE 113 GM TUBE TOP SCH ×2 (15:43→21:04)
[2018-07-12] MEDS: AZITHROMYCIN INJ 500 MG in SODIUM CHLORIDE 0.9% 250 ML IV SCH (15:44)
[2018-07-12] MEDS: PHENYTOIN 100 MG/2 ML VIAL IV SCH (21:04)
[2018-07-13] MEDS: ALBUTEROL 2.5 MG/3 ML NEB RESP TX SCH ×4 (00:20→10:40)
[2018-07-13] MEDS: SODIUM CHLORIDE 0.9% 1,000 ML IV SCH (02:56)
[2018-07-13] MEDS: guaiFENesin 200 MG/10 ML UDCUP PO SCH ×3 (02:56→10:12)
[2018-07-13] MEDS: PIPERACILLIN/TAZOBACTAM 3,375 MG in SODIUM CHLORIDE 0.9% 100 ML IV SCH ×2 (02:57→10:06)
[2018-07-13 03:37] LABS: Allen Test Positive; Pt O2 Delivery Device BIPAP
[2018-07-13 03:38] LABS: ABG Base Excess 6.8 MMOL/L (-2.5-2.5); ABG HCO3 31.8 MMOL/L (20-26); ABG Oxygen Saturation 96.4 % (95-100); ABG PCO2 46.8 MM HG (35-48); ABG PO2 85.8 MM HG (80-95); ABG TCO2 33.2 MMOL/L (23-27)
[2018-07-13 05:43] LABS: Basophils # 0.1 10*3/uL (0.0-0.2); Basophils % 0.6 % (0.0-0.8); Eosinophils # 0.1 10*3/uL (0.0-0.87); Eosinophils % 1.3 % (0.00-10.9); Hematocrit 37.3 VOL% (42.0-52.0); Hemoglobin 12.2 GM/DL (14.0-18.0); Immature Granulocytes % 0.4 %; Immature Granulocytes Absolute 0.03 #; Lymphocytes # 1.2 10*3/uL (1.4-4.0); Mean Corpuscular HGB Conc 32.7 GM/DL (32-36); Mean Corpuscular Hemoglobin 33 PG (27-34); Mean Corpuscular Volume 101.6 FL (87-102); Mean Platelet Volume 11.2 FL (9.6-12.0); Monocytes % 11.9 % (1.7-12.7); Neutrophils # 6.1 10*3/uL (1.4-7.4); Neutrophils % 71.8 % (38.7-73.9); Platelet Count 187 T/CUMM (130-400); Red Blood Count 3.67 MC/CUMM (3.8-5.5); Red Cell Distribution Width 13.2 % (9.3-17.3); White Blood Count 8.6 T/CUMM (4-12)
[2018-07-13 06:05] LABS: Calcium 8.7 MG/DL (8.5-10.1); Osmolality,Calculated 283.1 MOS/KG (273-304); Potassium 2.9 MMOL/L (3.5-5.1)
[2018-07-13] MEDS: LEVOTHYROXINE 100 MCG TABLET PO SCH (06:11)
[2018-07-13 06:14] LABS: Phenytoin (Dilantin) 4.3 UG/ML (10-20); Theophylline 3.3 UG/ML (10-20)
[2018-07-13] MEDS: INSULIN LISPRO 100 UNIT/ML SUBCUT SCH ×2 (07:12→12:01)
[2018-07-13] MEDS: PHENYTOIN 100 MG/2 ML VIAL IV SCH (08:32)
[2018-07-13] MEDS: POTASSIUM CHLORIDE 20 MEQ/15 ML UDCUP PO SCH (08:32)
[2018-07-13] MEDS: FUROSEMIDE 40 MG TABLET PO SCH (08:32)
[2018-07-13] MEDS: PANTOPRAZOLE 40 MG TABLET PO SCH (08:33)
[2018-07-13] MEDS: FERROUS SULFATE 325 MG TABLET PO SCH (08:38)
[2018-07-13] MEDS: IBUPROFEN 100 MG/5 ML UDCUP PO SCH (08:42)
[2018-07-13] MEDS: ZINC OXIDE PASTE 113 GM TUBE TOP SCH (08:42)
[2018-07-13] MEDS: THEOPHYLLINE 5.33 MG/ML 30 ML/BOTTLE PO SCH (10:06)
[2018-07-13] MEDS ORDERED: POTASSIUM CHLORIDE 20 MEQ/15 ML UDCUP PO ONE (10:16)
[2018-07-13 12:06] VITALS: BP 160/73
== END 2018-07-13 13:48 | disposition home health service (06) | DRG 189 ==
LOC: N.ED 09:10 → N.EDINP 10:53 → N.CC 12:48
PROVIDERS: ADMIT Internal Medicine; ATTEND Internal Medicine

== ENCOUNTER 2018-10-03 07:22 | Inpatient (IN) ==
[2018-10-03 08:26] LABS: Basophils # 0.1 10*3/uL (0.0-0.2); Basophils % 0.5 % (0.0-0.8); Eosinophils # 0.1 10*3/uL (0.0-0.87); Eosinophils % 0.5 % (0.00-10.9); Hematocrit 42.6 VOL% (42.0-52.0); Hemoglobin 14.2 GM/DL (14.0-18.0); Immature Granulocytes % 0.7 %; Immature Granulocytes Absolute 0.09 #; Lymphocytes # 0.4 10*3/uL (1.4-4.0); Lymphocytes % 3.2 % (21.2-54.2); Mean Corpuscular HGB Conc 33.3 GM/DL (32-36); Mean Corpuscular Hemoglobin 34 PG (27-34); Mean Corpuscular Volume 101.2 FL (87-102); Mean Platelet Volume 10.7 FL (9.6-12.0); Monocytes # 0.6 10*3/uL (0.11-0.8); Monocytes % 5.3 % (1.7-12.7); Neutrophils # 10.9 10*3/uL (1.4-7.4); Neutrophils % 89.8 % (38.7-73.9); Platelet Count 212 T/CUMM (130-400); Red Blood Count 4.21 MC/CUMM (3.8-5.5); Red Cell Distribution Width 12.6 % (9.3-17.3); White Blood Count 12.1 T/CUMM (4-12)
[2018-10-03 08:45] LABS: Alanine Aminotransferase 16 U/L (16-61); Albumin 3.5 G/DL (3.4-5.0); Alkaline Phosphatase 121 U/L (45-117); Aspartate Amino Transferase 14 U/L (0-37); Bilirubin,Total < 0.39 MG/DL (0.2-1.0); Blood Urea Nitrogen 18 MG/DL (7-18); Calcium 8.9 MG/DL (8.5-10.1); Glucose 133 MG/DL (74-106); Potassium 3.9 MMOL/L (3.5-5.1); Sodium 136 MMOL/L (136-145); Total Protein 7.8 G/DL (6.4-8.3)
[2018-10-03 08:47] LABS: Band Neutrophils 1 % (0-10); Hypochromasia 1+; Lymphocytes 1 % (20-55); Platelet Estimate Adequate; Segmented Neutrophils 95 % (50-85); Total Cells Counted 100
[2018-10-03 08:49] LABS: Ovalocytes Slight
[2018-10-03 10:05] LABS: Apearance,Urine Slightly Hazy (Clear); Bacteria,Urine Occasional /HPF (Few); Bilirubin,Urine Negative (Negative); Blood, Urine Negative (Negative); Calcium Oxalate Crystals,Urine Occasional /HPF (Few); Glucose,Urine (UA) Negative (Negative); Hyaline Casts,Urine 1 /LPF (0-3); Ketones,Urine 5 mg/dL (Negative); Mucus,Urine Occasional /LPF (Occasional); Nitrite,Urine Negative (Negative); Protein,Urine 100 MG/DL; RBC,Urine 6 /HPF (0-4); Squamous Epithelial Cell,Urine Occasional /HPF (0-10); Urine Color Yellow (Yellow); Urine Specific Gravity 1.025 (1.001-1.035); WBC,Urine 66 /HPF (0-6)
[2018-10-03] MEDS ORDERED: SODIUM CHLORIDE 0.9% 500 ML IV STA (10:08)
[2018-10-03] MEDS ORDERED: cefTRIAXone 250 MG VIAL IM STA (11:00)
[2018-10-03] MEDS ORDERED: cefTRIAXone 1,000 MG VIAL ONE (11:27)
[2018-10-03] MEDS ORDERED: levETIRAcetam 500 MG/5 ML VIAL IV ONE (11:27)
[2018-10-03] MEDS ORDERED: ONDANSETRON 4 MG/2 ML VIAL IV PRN (13:45)
[2018-10-03 16:09] LABS: Barbiturates Screen,Urine Negative (Negative); Benzodiazepines Screen,Urine Positive (Negative); Cannabinoid Screen,Urine Positive (Negative); Opiate Screen,Urine Negative (Negative); Phencyclidine Screen,Urine Negative (Negative)
[2018-10-04 04:25] LABS: ABG HCO3 27.9 MMOL/L (20-26); ABG Oxygen Saturation 96.6 % (95-100); ABG PCO2 44.1 MM HG (35-48); ABG PH 7.426 (7.35-7.45); ABG PO2 78.6 MM HG (80-95); ABG TCO2 25.1 MMOL/L (23-27); Allen Test Positive; Pt O2 Delivery Device CPAP
[2018-10-04 05:14] LABS: Basophils # 0.1 10*3/uL (0.0-0.2); Basophils % 0.7 % (0.0-0.8); Eosinophils # 0.1 10*3/uL (0.0-0.87); Eosinophils % 1.2 % (0.00-10.9); Hematocrit 40.2 VOL% (42.0-52.0); Hemoglobin 13.3 GM/DL (14.0-18.0); Immature Granulocytes % 0.7 %; Immature Granulocytes Absolute 0.05 #; Lymphocytes # 0.8 10*3/uL (1.4-4.0); Lymphocytes % 10.7 % (21.2-54.2); Mean Corpuscular HGB Conc 33.1 GM/DL (32-36); Mean Corpuscular Hemoglobin 33 PG (27-34); Mean Corpuscular Volume 100.8 FL (87-102); Mean Platelet Volume 11.3 FL (9.6-12.0); Monocytes # 0.8 10*3/uL (0.11-0.8); Neutrophils # 5.8 10*3/uL (1.4-7.4); Neutrophils % 76.7 % (38.7-73.9); Platelet Count 204 T/CUMM (130-400); Red Blood Count 3.99 MC/CUMM (3.8-5.5); Red Cell Distribution Width 12.7 % (9.3-17.3); White Blood Count 7.6 T/CUMM (4-12)
[2018-10-04 05:56] LABS: Calcium 8.9 MG/DL (8.5-10.1); Osmolality,Calculated 279.4 MOS/KG (273-304); Potassium 3.4 MMOL/L (3.5-5.1); Risk Ratio 3.47; Thyroid Stimulating Hormone 0.486 uIU/ml (0.358-3.74); VLDL CHOLESTEROL 17.6 MG/DL
[2018-10-04] MEDS: ALBUTEROL 2.5 MG/3 ML NEB RESP TX SCH ×3 (06:05→22:34)
[2018-10-04] MEDS ORDERED: POTASSIUM CHLORIDE RIDER 10 MEQ in PREMIX 1 EACH IV PRN (08:16)
[2018-10-04] MEDS: cefTRIAXone 1,000 MG in SYRINGE 1 EACH IV SCH (09:50)
[2018-10-04] MEDS: PANTOPRAZOLE 40 MG TABLET PO SCH (13:17)
[2018-10-04] MEDS: LACOSAMIDE 50 MG TABLET PO SCH ×2 (13:18→22:25)
[2018-10-04] MEDS ORDERED: POTASSIUM CHLORIDE 20 MEQ/15 ML UDCUP PER TUBE PRN (13:23)
[2018-10-05 05:25] LABS: Basophils # 0.1 10*3/uL (0.0-0.2); Basophils % 0.7 % (0.0-0.8); Eosinophils # 0.1 10*3/uL (0.0-0.87); Eosinophils % 1.3 % (0.00-10.9); Hematocrit 39.3 VOL% (42.0-52.0); Hemoglobin 12.9 GM/DL (14.0-18.0); Immature Granulocytes % 0.6 %; Immature Granulocytes Absolute 0.04 #; Lymphocytes # 0.8 10*3/uL (1.4-4.0); Lymphocytes % 11.4 % (21.2-54.2); Mean Corpuscular HGB Conc 32.8 GM/DL (32-36); Mean Corpuscular Hemoglobin 34 PG (27-34); Mean Corpuscular Volume 102.9 FL (87-102); Mean Platelet Volume 11.2 FL (9.6-12.0); Monocytes # 0.7 10*3/uL (0.11-0.8); Monocytes % 10.3 % (1.7-12.7); Neutrophils # 5.4 10*3/uL (1.4-7.4); Neutrophils % 75.7 % (38.7-73.9); Platelet Count 185 T/CUMM (130-400); Red Blood Count 3.82 MC/CUMM (3.8-5.5); Red Cell Distribution Width 12.7 % (9.3-17.3); White Blood Count 7.1 T/CUMM (4-12)
[2018-10-05 05:43] LABS: Calcium 8.9 MG/DL (8.5-10.1); Osmolality,Calculated 282.3 MOS/KG (273-304); Potassium 4.1 MMOL/L (3.5-5.1)
[2018-10-05] MEDS: ALBUTEROL 2.5 MG/3 ML NEB RESP TX SCH (07:30)
[2018-10-05] MEDS: LACOSAMIDE 50 MG TABLET PO SCH (09:35)
[2018-10-05] MEDS: PANTOPRAZOLE 40 MG TABLET PO SCH (09:35)
[2018-10-05] MEDS: cefTRIAXone 1,000 MG in SYRINGE 1 EACH IV SCH (09:36)
[2018-10-05 11:43] VITALS: BP 148/96
== END 2018-10-05 12:34 | disposition home health service (06) | DRG 101 ==
LOC: N.ED 07:22 → N.EDINP 13:19 → N.2E 13:56
PROVIDERS: ADMIT Internal Medicine; ATTEND Internal Medicine

== ENCOUNTER 2018-12-20 10:36 | Inpatient (IN) ==
[2018-12-20] MEDS ORDERED: methylPREDNISolone SOD SUC 125 MG/2 ML VIAL IV STA (10:53)
[2018-12-20] MEDS ORDERED: MAGNESIUM SULF RIDER 2 GM in PREMIX 1 EACH IV STA (10:53)
[2018-12-20] MEDS ORDERED: ALBUTEROL 2.5 MG/3 ML NEB RESP TX SCH (11:00)
[2018-12-20 11:23] LABS: INR 0.9; PT Patient Result 10.2 SECS; Partial Thromboplastin Time 24.8 SECS (0-40)
[2018-12-20 11:37] LABS: Apearance,Urine Slightly Hazy (Clear); Bacteria,Urine Occasional /HPF (Few); Bilirubin,Urine Negative (Negative); Blood, Urine Small mg/dL (Negative); Glucose,Urine (UA) Negative (Negative); Ketones,Urine Negative (Negative); Mucus,Urine Occasional /LPF (Occasional); Nitrite,Urine Negative (Negative); Protein,Urine Negative; RBC,Urine 6 /HPF (0-4); Squamous Epithelial Cell,Urine Occasional /HPF (0-10); Urine Color Yellow (Yellow); Urine Specific Gravity 1.012 (1.001-1.035); Urine Urobilinogen < 2.0 EU/DL (0.2-1.0); WBC,Urine 48 /HPF (0-6)
[2018-12-20 11:40] LABS: Albumin 3.8 G/DL (3.4-5.0); Bilirubin,Total 0.5 MG/DL (0.2-1.0); Calcium 8.7 MG/DL (8.5-10.1); Osmolality,Calculated 285.7 MOS/KG (273-304); Potassium 5.1 MMOL/L (3.5-5.1); Total Protein 8.1 G/DL (6.4-8.3)
[2018-12-20 11:40] LABS: Barbiturates Screen,Urine Negative (Negative); Benzodiazepines Screen,Urine Positive (Negative); Cannabinoid Screen,Urine Positive (Negative); Opiate Screen,Urine Negative (Negative); Phencyclidine Screen,Urine Negative (Negative)
[2018-12-20 12:44] LABS: PO2 iSTAT 74 MM HG (60-100)
[2018-12-20 12:56] LABS: pH iSTAT 6.954 (7.310-7.450)
[2018-12-20] MEDS ORDERED: PIPERACILLIN/TAZOBACTAM 3,375 MG in SODIUM CHLORIDE 0.9% 100 ML IV STA (12:57)
[2018-12-20 12:58] LABS: PCO2 iSTAT > 130 MM HG (27-55)
[2018-12-20 13:10] LABS: PCO2 iSTAT > 130 MM HG (27-55); PO2 iSTAT 74 MM HG (60-100); pH iSTAT 6.954 (7.310-7.450)
[2018-12-20 13:10] LABS: PCO2 iSTAT > 130 MM HG (27-55); PO2 iSTAT 73 MM HG (60-100)
[2018-12-20 13:50] LABS: Basophils # 0.1 10*3/uL (0.0-0.2); Basophils % 0.6 % (0.0-0.8); Eosinophils # 0.3 10*3/uL (0.0-0.87); Eosinophils % 1.6 % (0.00-10.9); Hematocrit 50.3 VOL% (42.0-52.0); Hemoglobin 16.2 GM/DL (14.0-18.0); Immature Granulocytes % 2.1 %; Immature Granulocytes Absolute 0.37 #; Lymphocytes # 1.5 10*3/uL (1.4-4.0); Lymphocytes % 8.4 % (21.2-54.2); Mean Corpuscular HGB Conc 32.2 GM/DL (32-36); Mean Corpuscular Hemoglobin 34 PG (27-34); Mean Corpuscular Volume 103.9 FL (87-102); Mean Platelet Volume 10.7 FL (9.6-12.0); Monocytes % 5.6 % (1.7-12.7); Neutrophils # 14.5 10*3/uL (1.4-7.4); Neutrophils % 81.7 % (38.7-73.9); Platelet Count 273 T/CUMM (130-400); Red Blood Count 4.84 MC/CUMM (3.8-5.5); Red Cell Distribution Width 12.8 % (9.3-17.3); White Blood Count 17.8 T/CUMM (4-12)
[2018-12-20 14:41] LABS: ABG Base Excess -2.3 MMOL/L (-2.5-2.5); ABG HCO3 22.5 MMOL/L (20-26); ABG Oxygen Saturation 98.3 % (95-100); ABG TCO2 27.3 MMOL/L (23-27)
[2018-12-20 14:42] LABS: ABG PH 7.161 (7.35-7.45)
[2018-12-20 14:43] LABS: ABG PCO2 86.6 MM HG (35-48)
[2018-12-21 08:19] LABS: ABG Base Excess 1.2 MMOL/L (-2.5-2.5); ABG HCO3 25.5 MMOL/L (20-26); ABG Oxygen Saturation 99.7 % (95-100); ABG PCO2 65.7 MM HG (35-48); ABG PH 7.274 (7.35-7.45); ABG TCO2 26.7 MMOL/L (23-27); Allen Test Positive; Pt O2 Delivery Device BIPAP
[2018-12-21] MEDS ORDERED: PIPERACILLIN/TAZOBACTAM 3,375 MG in SODIUM CHLORIDE 0.9% 100 ML IV SCH (09:00)
[2018-12-21] MEDS ORDERED: VANCOMYCIN INJ 1,500 MG in SODIUM CHLORIDE 0.9% 250 ML IV SCH (09:00)
[2018-12-21] MEDS ORDERED: methylPREDNISolone SOD SUC 40 MG/1 ML VIAL IV SCH ×2 (09:00→21:00)
[2018-12-21 09:31] LABS: Calcium 8.4 MG/DL (8.5-10.1); Osmolality,Calculated 284.3 MOS/KG (273-304); Potassium 4.6 MMOL/L (3.5-5.1)
[2018-12-21] MEDS ORDERED: ACETAMINOPHEN 325 MG TABLET PO PRN (11:16)
[2018-12-21] MEDS ORDERED: ALBUTEROL 2.5 MG/3 ML NEB RESP TX PRN (11:18)
[2018-12-21] MEDS: PIPERACILLIN/TAZOBACTAM 3,375 MG in SODIUM CHLORIDE 0.9% 100 ML IV SCH ×2 (11:23→20:45)
[2018-12-21] MEDS ORDERED: SODIUM CHLORIDE 0.9% 1,000 ML IV SCH ×2 (11:30→16:00)
[2018-12-21] MEDS ORDERED: LEVOFLOXACIN INJ 750 MG in PREMIX 1 EACH IV SCH (12:00)
[2018-12-21] MEDS: ALBUTEROL/IPRATROPIUM 3 ML NEB RESP TX SCH ×2 (13:00→19:26)
[2018-12-21] MEDS ORDERED: DEXTROSE 50% 25 GM/50 ML SYRINGE IV PRN (14:55)
[2018-12-21] MEDS ORDERED: GLUCAGON 1 MG VIAL IM PRN (14:55)
[2018-12-21 15:17] LABS: ABG Base Excess 3.9 MMOL/L (-2.5-2.5); ABG HCO3 27.9 MMOL/L (20-26); ABG Oxygen Saturation 97.2 % (95-100); ABG PCO2 50.6 MM HG (35-48); ABG PH 7.383 (7.35-7.45); ABG PO2 85.5 MM HG (80-95); ABG TCO2 26.3 MMOL/L (23-27); Allen Test Positive; Pt O2 Delivery Device Other
[2018-12-21] MEDS: SODIUM CHLORIDE 0.9% IV SCH (15:48)
[2018-12-21] MEDS: LACOSAMIDE IV SCH (15:48)
[2018-12-21] MEDS ORDERED: VANCOMYCIN INJ 1,500 MG in SODIUM CHLORIDE 0.9% 500 ML IV SCH (16:00)
[2018-12-21] MEDS ORDERED: FUROSEMIDE 40 MG/4 ML VIAL IV ONE (17:31)
[2018-12-21] MEDS: AMINOPHYLLINE 1,000 MG in SODIUM CHLORIDE 0.9% 460 ML IV SCH (18:01)
[2018-12-21] MEDS: methylPREDNISolone SOD SUC 40 MG/1 ML VIAL IV SCH (18:14)
[2018-12-21] MEDS: INSULIN REGULAR 100 UNIT/ML SUBCUT SCH (18:17)
[2018-12-22] MEDS: ALBUTEROL/IPRATROPIUM 3 ML NEB RESP TX SCH ×4 (00:03→18:30)
[2018-12-22] MEDS: INSULIN REGULAR 100 UNIT/ML SUBCUT SCH ×4 (00:45→18:38)
[2018-12-22] MEDS: methylPREDNISolone SOD SUC 40 MG/1 ML VIAL IV SCH ×3 (02:59→18:02)
[2018-12-22] MEDS: PIPERACILLIN/TAZOBACTAM 3,375 MG in SODIUM CHLORIDE 0.9% 100 ML IV SCH ×3 (04:09→20:24)
[2018-12-22 05:36] LABS: Basophils % 0.1 % (0.0-0.8); Hematocrit 40.7 VOL% (42.0-52.0); Hemoglobin 13.4 GM/DL (14.0-18.0); Immature Granulocytes % 0.6 %; Immature Granulocytes Absolute 0.06 #; Lymphocytes # 0.4 10*3/uL (1.4-4.0); Mean Corpuscular HGB Conc 32.9 GM/DL (32-36); Mean Corpuscular Hemoglobin 34 PG (27-34); Mean Corpuscular Volume 102.3 FL (87-102); Mean Platelet Volume 11.2 FL (9.6-12.0); Monocytes # 0.8 10*3/uL (0.11-0.8); Monocytes % 7.6 % (1.7-12.7); Neutrophils # 8.7 10*3/uL (1.4-7.4); Neutrophils % 87.7 % (38.7-73.9); Platelet Count 204 T/CUMM (130-400); Red Blood Count 3.98 MC/CUMM (3.8-5.5); Red Cell Distribution Width 12.6 % (9.3-17.3)
[2018-12-22 05:54] LABS: Calcium 8.4 MG/DL (8.5-10.1); Osmolality,Calculated 285.1 MOS/KG (273-304); Potassium 3.8 MMOL/L (3.5-5.1); Prealbumin 18.2 MG/DL (20-40)
[2018-12-22 06:24] LABS: Band Neutrophils 3 % (0-10); Hypochromasia 2+; Lymphocytes 3 % (20-55); Platelet Estimate Normal; Segmented Neutrophils 88 % (50-85); Total Cells Counted 100
[2018-12-22] MEDS: LEVOTHYROXINE 100 MCG VIAL IV SCH (07:31)
[2018-12-22] MEDS ORDERED: FUROSEMIDE 20 MG/2 ML VIAL IV SCH (09:00)
[2018-12-22] MEDS: SODIUM CHLORIDE 0.9% IV SCH (09:22)
[2018-12-22] MEDS: LACOSAMIDE IV SCH (09:22)
[2018-12-22] MEDS: FUROSEMIDE 40 MG/4 ML VIAL IV SCH (09:39)
[2018-12-22] MEDS: LEVOFLOXACIN 500 MG TABLET PO SCH (09:44)
[2018-12-22] MEDS ORDERED: FOSPHENYTOIN 1,000 MG.PE in SODIUM CHLORIDE 0.9% 250 ML IV ONE (13:00)
[2018-12-22] MEDS ORDERED: METOPROLOL TARTRATE 5 MG/5 ML VIAL IV ONE (13:07)
[2018-12-22 13:16] LABS: ABG Base Excess 2.6 MMOL/L (-2.5-2.5); ABG HCO3 26.6 MMOL/L (20-26); ABG Oxygen Saturation 94.1 % (95-100); ABG PCO2 54.5 MM HG (35-48); ABG PH 7.348 (7.35-7.45); ABG PO2 71.5 MM HG (80-95); ABG TCO2 25.5 MMOL/L (23-27); Pt O2 Delivery Device Other
[2018-12-22] MEDS: LACOSAMIDE INJ 100 MG in SODIUM CHLORIDE 0.9% 50 ML IV SCH ×2 (13:39→21:47)
[2018-12-22 13:58] LABS: Osmolality,Calculated 293.7 MOS/KG (273-304); Potassium 2.7 MMOL/L (3.5-5.1)
[2018-12-22] MEDS: PHENYTOIN 100 MG/2 ML VIAL IV SCH ×2 (15:44→22:45)
[2018-12-22] MEDS: POTASSIUM CHLORIDE RIDER 10 MEQ in PREMIX 1 EACH IV PRN ×5 (16:16→22:29)
[2018-12-22] MEDS: AMINOPHYLLINE 1,000 MG in SODIUM CHLORIDE 0.9% 460 ML IV SCH ×2 (18:03→18:43)
[2018-12-23] MEDS: ALBUTEROL/IPRATROPIUM 3 ML NEB RESP TX SCH ×4 (00:39→19:10)
[2018-12-23] MEDS: INSULIN REGULAR 100 UNIT/ML SUBCUT SCH ×4 (03:09→18:31)
[2018-12-23] MEDS: methylPREDNISolone SOD SUC 40 MG/1 ML VIAL IV SCH ×3 (03:12→18:29)
[2018-12-23] MEDS: PIPERACILLIN/TAZOBACTAM 3,375 MG in SODIUM CHLORIDE 0.9% 100 ML IV SCH ×3 (04:54→21:24)
[2018-12-23 05:33] LABS: Troponin I 0.049 NG/ML (0.00-0.045)
[2018-12-23] MEDS: LEVOTHYROXINE 100 MCG VIAL IV SCH (06:13)
[2018-12-23] MEDS: PHENYTOIN 100 MG/2 ML VIAL IV SCH ×2 (06:13→13:08)
[2018-12-23] MEDS: FUROSEMIDE 40 MG/4 ML VIAL IV SCH (09:20)
[2018-12-23] MEDS: CLORAZEPATE 3.75 MG TABLET PO SCH ×2 (09:21→13:01)
[2018-12-23] MEDS: LEVOFLOXACIN 500 MG TABLET PO SCH (09:21)
[2018-12-23] MEDS: LACOSAMIDE INJ 100 MG in SODIUM CHLORIDE 0.9% 50 ML IV SCH ×2 (09:22→20:44)
[2018-12-23] MEDS: POTASSIUM CHLORIDE RIDER 10 MEQ in PREMIX 1 EACH IV PRN (10:08)
[2018-12-23] MEDS: AMINOPHYLLINE 1,000 MG in SODIUM CHLORIDE 0.9% 460 ML IV SCH (21:25)
[2018-12-24] MEDS: ALBUTEROL/IPRATROPIUM 3 ML NEB RESP TX SCH ×4 (00:30→18:40)
[2018-12-24] MEDS: INSULIN REGULAR 100 UNIT/ML SUBCUT SCH ×5 (00:41→23:48)
[2018-12-24] MEDS: methylPREDNISolone SOD SUC 40 MG/1 ML VIAL IV SCH ×3 (01:47→17:59)
[2018-12-24 05:05] LABS: Calcium 8.4 MG/DL (8.5-10.1); Osmolality,Calculated 280.5 MOS/KG (273-304); Potassium 3.3 MMOL/L (3.5-5.1)
[2018-12-24] MEDS: LEVOTHYROXINE 100 MCG VIAL IV SCH (05:37)
[2018-12-24] MEDS: PIPERACILLIN/TAZOBACTAM 3,375 MG in SODIUM CHLORIDE 0.9% 100 ML IV SCH ×3 (05:38→20:30)
[2018-12-24] MEDS ORDERED: CYANOCOBALAMIN 1000 MCG/1 ML VIAL IM ONE (08:59)
[2018-12-24] MEDS: LACOSAMIDE INJ 100 MG in SODIUM CHLORIDE 0.9% 50 ML IV SCH ×2 (09:02→20:49)
[2018-12-24] MEDS: FUROSEMIDE 40 MG/4 ML VIAL IV SCH (09:02)
[2018-12-24] MEDS: CLORAZEPATE 3.75 MG TABLET PO SCH ×2 (09:08→11:49)
[2018-12-24] MEDS: LEVOFLOXACIN 500 MG TABLET PO SCH (09:08)
[2018-12-24] MEDS: POTASSIUM CHLORIDE RIDER 10 MEQ in PREMIX 1 EACH IV PRN ×4 (09:09→13:25)
[2018-12-24 10:42] LABS: Free T4 (Free Thyroxine) 1.32 NG/DL (0.76-1.46); Thyroid Stimulating Hormone 1.36 uIU/ml (0.358-3.74)
[2018-12-24] MEDS: DILTIAZEM 30 MG TABLET PO SCH ×3 (12:22→23:49)
[2018-12-25] MEDS: methylPREDNISolone SOD SUC 40 MG/1 ML VIAL IV SCH ×3 (02:20→17:54)
[2018-12-25 04:39] LABS: Hematocrit 41.6 VOL% (42.0-52.0); Hemoglobin 13.8 GM/DL (14.0-18.0); Immature Granulocytes % 0.7 %; Immature Granulocytes Absolute 0.06 #; Lymphocytes # 0.3 10*3/uL (1.4-4.0); Lymphocytes % 3.9 % (21.2-54.2); Mean Corpuscular HGB Conc 33.2 GM/DL (32-36); Mean Corpuscular Hemoglobin 33 PG (27-34); Mean Corpuscular Volume 100.7 FL (87-102); Mean Platelet Volume 11.1 FL (9.6-12.0); Monocytes # 0.6 10*3/uL (0.11-0.8); Monocytes % 7.7 % (1.7-12.7); Neutrophils # 7.2 10*3/uL (1.4-7.4); Neutrophils % 87.7 % (38.7-73.9); Platelet Count 188 T/CUMM (130-400); Red Blood Count 4.13 MC/CUMM (3.8-5.5); Red Cell Distribution Width 12.5 % (9.3-17.3); White Blood Count 8.2 T/CUMM (4-12)
[2018-12-25 04:40] LABS: Calcium 8.6 MG/DL (8.5-10.1); Osmolality,Calculated 284.3 MOS/KG (273-304); Potassium 3.8 MMOL/L (3.5-5.1)
[2018-12-25] MEDS: LEVOTHYROXINE 100 MCG VIAL IV SCH (06:09)
[2018-12-25] MEDS: DILTIAZEM 30 MG TABLET PO SCH (06:10)
[2018-12-25] MEDS: INSULIN REGULAR 100 UNIT/ML SUBCUT SCH ×3 (06:10→17:44)
[2018-12-25] MEDS: PIPERACILLIN/TAZOBACTAM 3,375 MG in SODIUM CHLORIDE 0.9% 100 ML IV SCH ×3 (06:10→20:57)
[2018-12-25 06:24] LABS: Hypochromasia 1+; Lymphocytes 4 % (20-55); Microcytosis 1+; Myelocytes 2 %; Platelet Estimate Normal; Polychromasia Few; Segmented Neutrophils 92 % (50-85); Total Cells Counted 100
[2018-12-25] MEDS: FUROSEMIDE 40 MG TABLET PO SCH (08:27)
[2018-12-25] MEDS: CLORAZEPATE 3.75 MG TABLET PO SCH ×2 (08:27→12:01)
[2018-12-25] MEDS: ASPIRIN EC 81 MG TABLET PO SCH (08:28)
[2018-12-25] MEDS: ALBUTEROL/IPRATROPIUM 3 ML NEB RESP TX SCH ×4 (08:28→18:40)
[2018-12-25] MEDS: LEVOFLOXACIN 500 MG TABLET PO SCH (08:28)
[2018-12-25] MEDS: LACOSAMIDE INJ 100 MG in SODIUM CHLORIDE 0.9% 50 ML IV SCH (08:34)
[2018-12-25] MEDS: DILTIAZEM 60 MG TABLET PO SCH ×2 (12:01→17:54)
[2018-12-25] MEDS: THEOPHYLLINE 5.33 MG/ML 30 ML/BOTTLE PO SCH (20:58)
[2018-12-25] MEDS: LACOSAMIDE 50 MG TABLET PO SCH (20:58)
[2018-12-26] MEDS: ALBUTEROL/IPRATROPIUM 3 ML NEB RESP TX SCH ×4 (00:10→19:59)
[2018-12-26] MEDS: INSULIN REGULAR 100 UNIT/ML SUBCUT SCH ×5 (01:18→23:35)
[2018-12-26] MEDS: DILTIAZEM 60 MG TABLET PO SCH (01:19)
[2018-12-26] MEDS: methylPREDNISolone SOD SUC 40 MG/1 ML VIAL IV SCH ×3 (01:24→17:26)
[2018-12-26 04:06] LABS: Basophils % 0.1 % (0.0-0.8); Hematocrit 40.8 VOL% (42.0-52.0); Hemoglobin 13.6 GM/DL (14.0-18.0); Immature Granulocytes % 1.1 %; Immature Granulocytes Absolute 0.11 #; Lymphocytes # 0.3 10*3/uL (1.4-4.0); Lymphocytes % 3.2 % (21.2-54.2); Mean Corpuscular HGB Conc 33.3 GM/DL (32-36); Mean Corpuscular Hemoglobin 34 PG (27-34); Mean Corpuscular Volume 101.5 FL (87-102); Mean Platelet Volume 11.1 FL (9.6-12.0); Monocytes # 0.8 10*3/uL (0.11-0.8); Monocytes % 8.1 % (1.7-12.7); Neutrophils # 8.5 10*3/uL (1.4-7.4); Neutrophils % 87.5 % (38.7-73.9); Platelet Count 176 T/CUMM (130-400); Red Blood Count 4.02 MC/CUMM (3.8-5.5); Red Cell Distribution Width 12.6 % (9.3-17.3); White Blood Count 9.7 T/CUMM (4-12)
[2018-12-26 04:25] LABS: Calcium 8.8 MG/DL (8.5-10.1); Potassium 3.7 MMOL/L (3.5-5.1)
[2018-12-26 04:35] LABS: Lymphocytes 5 % (20-55); Metamyelocytes 1 %; Segmented Neutrophils 83 % (50-85); Total Cells Counted 100
[2018-12-26 04:36] LABS: Hypochromasia Slight; Platelet Estimate Normal
[2018-12-26 04:37] LABS: Polychromasia Few
[2018-12-26] MEDS: PIPERACILLIN/TAZOBACTAM 3,375 MG in SODIUM CHLORIDE 0.9% 100 ML IV SCH ×2 (04:52→12:08)
[2018-12-26] MEDS: LEVOTHYROXINE 100 MCG VIAL IV SCH (07:17)
[2018-12-26] MEDS ORDERED: IBUPROFEN 400 MG TABLET PO PRN (08:23)
[2018-12-26] MEDS ORDERED: DILTIAZEM CD 240 MG CAPSULE PO SCH (09:00)
[2018-12-26] MEDS: CLORAZEPATE 3.75 MG TABLET PO SCH ×2 (09:10→12:09)
[2018-12-26] MEDS: FUROSEMIDE 40 MG TABLET PO SCH (09:11)
[2018-12-26] MEDS: ASPIRIN EC 81 MG TABLET PO SCH (09:11)
[2018-12-26] MEDS: LACOSAMIDE 50 MG TABLET PO SCH (09:13)
[2018-12-26] MEDS: THEOPHYLLINE 5.33 MG/ML 30 ML/BOTTLE PO SCH ×3 (09:13→21:12)
[2018-12-26] MEDS: LEVOFLOXACIN 500 MG TABLET PO SCH (09:13)
[2018-12-26 14:16] LABS: Procalcitonin, S 0.45 ng/mL (<=0.15)
[2018-12-26] MEDS ORDERED: IBUPROFEN 100 MG/5 ML UDCUP PO PRN (14:33)
[2018-12-26] MEDS: AZITHROMYCIN 250 MG TABLET PO SCH (14:36)
[2018-12-26] MEDS ORDERED: LACOSAMIDE 50 MG TABLET PO ONE (16:30)
[2018-12-26] MEDS: CLINDAMYCIN 150 MG CAPSULE PO SCH (18:17)
[2018-12-26] MEDS ORDERED: LACOSAMIDE 50 MG TABLET PO SCH (21:00)
[2018-12-27] MEDS: CLINDAMYCIN 150 MG CAPSULE PO SCH ×2 (00:14→05:51)
[2018-12-27] MEDS: ALBUTEROL/IPRATROPIUM 3 ML NEB RESP TX SCH ×2 (01:10→07:11)
[2018-12-27] MEDS: methylPREDNISolone SOD SUC 40 MG/1 ML VIAL IV SCH ×3 (02:06→09:54)
[2018-12-27] MEDS: LEVOTHYROXINE 100 MCG VIAL IV SCH (05:51)
[2018-12-27] MEDS: INSULIN REGULAR 100 UNIT/ML SUBCUT SCH (05:55)
[2018-12-27 07:40] VITALS: BP 142/78
[2018-12-27] MEDS: FUROSEMIDE 40 MG TABLET PO SCH (08:42)
[2018-12-27] MEDS: AZITHROMYCIN 250 MG TABLET PO SCH (08:42)
[2018-12-27] MEDS: ASPIRIN EC 81 MG TABLET PO SCH (08:42)
[2018-12-27] MEDS: CLORAZEPATE 3.75 MG TABLET PO SCH (08:49)
[2018-12-27] MEDS: THEOPHYLLINE 5.33 MG/ML 30 ML/BOTTLE PO SCH (08:50)
[2018-12-27] MEDS ORDERED: DILTIAZEM 90 MG TABLET PO SCH (09:00)
[2018-12-27] MEDS ORDERED: LACOSAMIDE 50 MG TABLET PO SCH (09:00)
== END 2018-12-27 13:35 | disposition hospice, home (50) | DRG 189 ==
LOC: EDUNIT# → EDBD → N.EDINP 10:36 → N.ED 10:36 → N.EDINP 17:05 → N.2E 17:38 → SUATTDRO 12-21 14:08 → N.ICU 12-22 13:38 → N.5E 12-23 11:14
PROVIDERS: ADMIT Internal Medicine; ATTEND Internal Medicine Geriatric Medicine

== ENCOUNTER 2019-06-03 11:14 | Inpatient (IN) ==
[2019-06-03 13:28] LABS: ABG Base Excess 4.3 MMOL/L (-2.5-2.5); ABG HCO3 34.1 MMOL/L (20-26); ABG Oxygen Saturation 96.3 % (95-100); ABG PH 7.264 (7.35-7.45); ABG PO2 93.1 MM HG (80-95); ABG TCO2 36.5 MMOL/L (23-27)
[2019-06-03 13:32] LABS: Basophils # 0.1 10*3/uL (0.0-0.2); Basophils % 0.7 % (0.0-0.8); Eosinophils # 0.4 10*3/uL (0.0-0.87); Eosinophils % 4.2 % (0.00-10.9); Hematocrit 42.4 VOL% (42.0-52.0); Hemoglobin 13.6 GM/DL (14.0-18.0); Immature Granulocytes % 0.7 %; Immature Granulocytes Absolute 0.06 #; Lymphocytes # 0.5 10*3/uL (1.4-4.0); Lymphocytes % 5.8 % (21.2-54.2); Mean Corpuscular HGB Conc 32.1 GM/DL (32-36); Mean Corpuscular Volume 105.2 FL (87-102); Mean Platelet Volume 10.5 FL (9.6-12.0); Monocytes % 9.2 % (1.7-12.7); Neutrophils % 79.4 % (38.7-73.9); Platelet Count 194 T/CUMM (130-400); Red Blood Count 4.03 MC/CUMM (3.8-5.5); Red Cell Distribution Width 13.2 % (9.3-17.3)
[2019-06-03 14:25] LABS: Albumin 3.4 G/DL (3.4-5.0); Bilirubin,Total 0.4 MG/DL (0.2-1.0); Calcium 8.8 MG/DL (8.5-10.1); Osmolality,Calculated 280.5 MOS/KG (273-304); Total Protein 7.3 G/DL (6.4-8.3)
[2019-06-03] MEDS ORDERED: ALBUTEROL/IPRATROPIUM 3 ML NEB RESP TX PRN (16:03)
[2019-06-03] MEDS ORDERED: ONDANSETRON 4 MG/2 ML VIAL IV PRN (16:03)
[2019-06-03] MEDS ORDERED: CLORAZEPATE 7.5 MG TABLET PEG PRN (16:14)
[2019-06-03] MEDS: ENOXAPARIN 40 MG/0.4 ML SYRINGE SUBCUT SCH (18:00)
[2019-06-03] MEDS: ALPRAZolam 0.5 MG TABLET PEG PRN (18:00)
[2019-06-03] MEDS: guaiFENesin 200 MG/10 ML UDCUP PEG SCH ×2 (18:00→21:52)
[2019-06-03] MEDS: MAGNESIUM CITRATE 300 ML BOTTLE PO SCH (18:00)
[2019-06-03] MEDS: SPIRONOLACTONE 25 MG TABLET PEG SCH (21:53)
[2019-06-03] MEDS: FUROSEMIDE 40 MG TABLET PEG SCH (21:53)
[2019-06-03] MEDS: DILTIAZEM 90 MG TABLET PO SCH (21:54)
[2019-06-03] MEDS: QUEtiapine 25 MG TABLET PEG SCH (21:54)
[2019-06-03] MEDS: POTASSIUM CHLORIDE 20 MEQ/15 ML UDCUP PEG SCH (21:55)
[2019-06-03] MEDS: THEOPHYLLINE 5.33 MG/ML 30 ML/BOTTLE PEG SCH (22:12)
[2019-06-04] MEDS: guaiFENesin 200 MG/10 ML UDCUP PEG SCH ×6 (02:14→20:31)
[2019-06-04] MEDS: ALPRAZolam 0.5 MG TABLET PEG PRN ×3 (04:48→15:00)
[2019-06-04 04:55] LABS: Basophils % 0.5 % (0.0-0.8); Eosinophils # 0.4 10*3/uL (0.0-0.87); Eosinophils % 4.6 % (0.00-10.9); Hematocrit 40.4 VOL% (42.0-52.0); Hemoglobin 13.2 GM/DL (14.0-18.0); Immature Granulocytes % 0.6 %; Immature Granulocytes Absolute 0.05 #; Lymphocytes # 0.7 10*3/uL (1.4-4.0); Lymphocytes % 8.6 % (21.2-54.2); Mean Corpuscular HGB Conc 32.7 GM/DL (32-36); Mean Corpuscular Volume 104.7 FL (87-102); Mean Platelet Volume 10.8 FL (9.6-12.0); Monocytes % 11.5 % (1.7-12.7); Neutrophils % 74.2 % (38.7-73.9); Platelet Count 198 T/CUMM (130-400); Red Blood Count 3.86 MC/CUMM (3.8-5.5); Red Cell Distribution Width 13.1 % (9.3-17.3); White Blood Count 8.4 T/CUMM (4-12)
[2019-06-04 05:17] LABS: Calcium 8.9 MG/DL (8.5-10.1); Osmolality,Calculated 276.5 MOS/KG (273-304)
[2019-06-04] MEDS: LEVOTHYROXINE 100 MCG TABLET PEG SCH (06:34)
[2019-06-04 08:23] LABS: Allen Test Positive
[2019-06-04 08:30] LABS: ABG Base Excess 9.6 MMOL/L (-2.5-2.5); ABG HCO3 33.2 MMOL/L (20-26); ABG Oxygen Saturation 91.8 % (95-100); ABG PCO2 63.4 MM HG (35-48); ABG PH 7.381 (7.35-7.45); ABG PO2 59.8 MM HG (80-95); ABG TCO2 32.8 MMOL/L (23-27)
[2019-06-04] MEDS: THEOPHYLLINE 5.33 MG/ML 30 ML/BOTTLE PEG SCH ×3 (08:55→20:34)
[2019-06-04] MEDS: POTASSIUM CHLORIDE 20 MEQ/15 ML UDCUP PEG SCH ×2 (08:55→20:31)
[2019-06-04] MEDS: DILTIAZEM 90 MG TABLET PO SCH ×3 (08:56→20:31)
[2019-06-04] MEDS: PANTOPRAZOLE 40 MG TABLET PO SCH (08:56)
[2019-06-04] MEDS: QUEtiapine 25 MG TABLET PEG SCH ×2 (08:56→20:33)
[2019-06-04] MEDS: FUROSEMIDE 40 MG TABLET PEG SCH ×2 (08:56→20:32)
[2019-06-04] MEDS: SPIRONOLACTONE 25 MG TABLET PEG SCH ×2 (08:57→20:32)
[2019-06-04] MEDS: MAGNESIUM CITRATE 300 ML BOTTLE PO SCH (08:57)
[2019-06-04] MEDS: ALBUTEROL 2.5 MG/3 ML NEB RESP TX SCH ×3 (10:30→19:55)
[2019-06-04] MEDS: MENTHOL/ZINC OXIDE OINT 71 GM JAR TOP SCH ×2 (15:57→20:34)
[2019-06-04] MEDS: ENOXAPARIN 40 MG/0.4 ML SYRINGE SUBCUT SCH (17:32)
[2019-06-04] MEDS ORDERED: ACETAMINOPHEN 325 MG TABLET PO PRN (19:15)
[2019-06-05] MEDS: guaiFENesin 200 MG/10 ML UDCUP PEG SCH ×6 (00:30→15:43)
[2019-06-05 05:48] LABS: Basophils % 0.5 % (0.0-0.8); Eosinophils # 0.2 10*3/uL (0.0-0.87); Eosinophils % 2.8 % (0.00-10.9); Hematocrit 41.3 VOL% (42.0-52.0); Hemoglobin 13.2 GM/DL (14.0-18.0); Immature Granulocytes % 0.6 %; Immature Granulocytes Absolute 0.05 #; Lymphocytes # 0.6 10*3/uL (1.4-4.0); Lymphocytes % 8.2 % (21.2-54.2); Mean Corpuscular Volume 104.3 FL (87-102); Mean Platelet Volume 10.7 FL (9.6-12.0); Monocytes % 11.3 % (1.7-12.7); Neutrophils % 76.6 % (38.7-73.9); Platelet Count 194 T/CUMM (130-400); Red Blood Count 3.96 MC/CUMM (3.8-5.5); Red Cell Distribution Width 13.1 % (9.3-17.3); White Blood Count 7.8 T/CUMM (4-12)
[2019-06-05 06:01] LABS: Calcium 9.2 MG/DL (8.5-10.1); Osmolality,Calculated 275.5 MOS/KG (273-304)
[2019-06-05] MEDS: LEVOTHYROXINE 100 MCG TABLET PEG SCH (06:10)
[2019-06-05] MEDS: ALBUTEROL 2.5 MG/3 ML NEB RESP TX SCH ×2 (07:15→12:20)
[2019-06-05] MEDS ORDERED: INFLUENZA VIRUS VACCINE 0.5 ML SYRINGE IM ONE (09:00)
[2019-06-05] MEDS: FUROSEMIDE 40 MG TABLET PEG SCH (09:23)
[2019-06-05] MEDS: POTASSIUM CHLORIDE 20 MEQ/15 ML UDCUP PEG SCH (09:23)
[2019-06-05] MEDS: SPIRONOLACTONE 25 MG TABLET PEG SCH (09:23)
[2019-06-05] MEDS: PANTOPRAZOLE 40 MG TABLET PO SCH (09:24)
[2019-06-05] MEDS: QUEtiapine 25 MG TABLET PEG SCH (09:24)
[2019-06-05] MEDS: DILTIAZEM 90 MG TABLET PO SCH ×2 (09:25→15:14)
[2019-06-05] MEDS: ALPRAZolam 0.5 MG TABLET PEG PRN (09:41)
[2019-06-05] MEDS: THEOPHYLLINE 5.33 MG/ML 30 ML/BOTTLE PEG SCH ×2 (09:41→15:13)
[2019-06-05] MEDS: MAGNESIUM CITRATE 300 ML BOTTLE PO SCH (09:41)
[2019-06-05] MEDS: MENTHOL/ZINC OXIDE OINT 71 GM JAR TOP SCH (09:44)
[2019-06-05] MEDS: ENOXAPARIN 40 MG/0.4 ML SYRINGE SUBCUT SCH ×2 (15:13→15:43)
[2019-06-05 16:15] VITALS: BP 142/81
== END 2019-06-05 17:25 | disposition home or self-care (01) | DRG 189 ==
LOC: EDBD → EDUNIT# → N.EDINP 11:14 → N.ED 11:14 → N.ICU 15:13 → N.5E 06-04 16:54
PROVIDERS: ADMIT Internal Medicine; ATTEND Internal Medicine

== ENCOUNTER 2019-06-14 15:12 | Inpatient (IN) ==
[2019-06-14] MEDS ORDERED: ALBUTEROL/IPRATROPIUM 3 ML NEB RESP TX STA ×2 (15:45→20:25)
[2019-06-14] MEDS ORDERED: ONDANSETRON 4 MG/2 ML VIAL IV STA (15:45)
[2019-06-14] MEDS ORDERED: FUROSEMIDE 40 MG/4 ML VIAL IV STA (15:45)
[2019-06-14 16:16] LABS: Apearance,Urine Slightly Hazy (Clear); Bacteria,Urine Occasional /HPF (Few); Bilirubin,Urine Negative (Negative); Blood, Urine Negative (Negative); Glucose,Urine (UA) Negative (Negative); Ketones,Urine Negative (Negative); Mucus,Urine Occasional /LPF (Occasional); Nitrite,Urine Negative (Negative); Protein,Urine Negative; RBC,Urine 4 /HPF (0-4); Squamous Epithelial Cell,Urine Occasional /HPF (0-10); Urine Color Amber (Yellow); Urine Specific Gravity 1.021 (1.001-1.035); Urine Urobilinogen < 2.0 EU/DL (0.2-1.0); WBC,Urine 11 /HPF (0-6)
[2019-06-14 16:22] LABS: Barbiturates Screen,Urine Negative (Negative); Benzodiazepines Screen,Urine Positive (Negative); Cannabinoid Screen,Urine Positive (Negative); Opiate Screen,Urine Positive (Negative); Phencyclidine Screen,Urine Negative (Negative)
[2019-06-14] MEDS ORDERED: LEVOFLOXACIN INJ 750 MG in PREMIX 1 EACH IV STA (17:02)
[2019-06-14 17:20] LABS: Basophils % 0.4 % (0.0-0.8); Eosinophils # 0.3 10*3/uL (0.0-0.87); Eosinophils % 2.4 % (0.00-10.9); Hemoglobin 13.9 GM/DL (14.0-18.0); Immature Granulocytes % 0.9 %; Lymphocytes # 0.4 10*3/uL (1.4-4.0); Lymphocytes % 3.2 % (21.2-54.2); Mean Corpuscular HGB Conc 32.3 GM/DL (32-36); Mean Corpuscular Volume 105.1 FL (87-102); Mean Platelet Volume 10.4 FL (9.6-12.0); Monocytes % 6.4 % (1.7-12.7); Neutrophils % 86.7 % (38.7-73.9); Platelet Count 165 T/CUMM (130-400); Red Blood Count 4.09 MC/CUMM (3.8-5.5); Red Cell Distribution Width 13.1 % (9.3-17.3); White Blood Count 11.1 T/CUMM (4-12)
[2019-06-14 17:46] LABS: INR 0.9; PT Patient Result 9.4 SECS (9.6-12.2); Partial Thromboplastin Time 26.8 SECS (20.8-36.0)
[2019-06-14 17:56] LABS: Alanine Aminotransferase 19 U/L (16-61); Alkaline Phosphatase 118 U/L (45-117); Aspartate Amino Transferase 16 U/L (0-37); Blood Urea Nitrogen 21 MG/DL (7-18); Calcium 9.1 MG/DL (8.5-10.1); Estimated Glom Filtration Rate 158 ML/MIN; Glucose 134 MG/DL (74-106); Osmolality,Calculated 285.3 MOS/KG (273-304); Total Protein 7.9 G/DL (6.4-8.3); Troponin I < 0.015 NG/ML (0.00-0.045)
[2019-06-14 18:35] LABS: Band Neutrophils 2 % (0-10); Lymphocytes 3 % (20-55); Macrocytosis 1+; Platelet Estimate Adequate; Segmented Neutrophils 90 % (50-85); Total Cells Counted 100
[2019-06-14] MEDS ORDERED: ONDANSETRON 4 MG/2 ML VIAL IV PRN ×2 (20:21→20:22)
[2019-06-14] MEDS ORDERED: DOCUSATE SODIUM 100 MG CAPSULE PO PRN (20:22)
[2019-06-14] MEDS ORDERED: LACTULOSE 20 GM/30 ML UDCUP PO PRN (20:22)
[2019-06-14 20:50] LABS: Allen Test Positive
[2019-06-14 20:51] LABS: ABG Base Excess 6.2 MMOL/L (-2.5-2.5); ABG HCO3 29.8 MMOL/L (20-26); ABG Oxygen Saturation 89.3 % (95-100); ABG PH 7.266 (7.35-7.45); ABG PO2 60.4 MM HG (80-95)
[2019-06-14 21:00] LABS: Thyroid Stimulating Hormone 1.63 uIU/ml (0.358-3.74)
[2019-06-14] MEDS: ENOXAPARIN 150 MG/ML SYRINGE SUBCUT SCH (23:19)
[2019-06-14] MEDS: PIPERACILLIN/TAZOBACTAM 3,375 MG in SODIUM CHLORIDE 0.9% 100 ML IV SCH (23:19)
[2019-06-15] MEDS: LACOSAMIDE 50 MG TABLET PO SCH ×3 (00:47→21:15)
[2019-06-15 01:57] LABS: ABG Base Excess 7.4 MMOL/L (-2.5-2.5); ABG HCO3 30.8 MMOL/L (20-26); ABG Oxygen Saturation 81.7 % (95-100); ABG PCO2 66.2 MM HG (35-48); ABG PH 7.343 (7.35-7.45); ABG PO2 45.8 MM HG (80-95); ABG TCO2 31.7 MMOL/L (23-27); Allen Test Positive; Pt O2 Delivery Device Other
[2019-06-15] MEDS: ALPRAZolam 0.5 MG TABLET PO PRN (03:06)
[2019-06-15 04:50] LABS: Basophils % 0.3 % (0.0-0.8); Eosinophils # 0.1 10*3/uL (0.0-0.87); Eosinophils % 0.7 % (0.00-10.9); Hematocrit 40.8 VOL% (42.0-52.0); Hemoglobin 13.1 GM/DL (14.0-18.0); Immature Granulocytes % 0.9 %; Immature Granulocytes Absolute 0.09 #; Lymphocytes # 0.3 10*3/uL (1.4-4.0); Lymphocytes % 3.2 % (21.2-54.2); Mean Corpuscular HGB Conc 32.1 GM/DL (32-36); Mean Corpuscular Volume 105.7 FL (87-102); Mean Platelet Volume 11.3 FL (9.6-12.0); Monocytes % 7.7 % (1.7-12.7); Neutrophils % 87.2 % (38.7-73.9); Platelet Count 171 T/CUMM (130-400); Red Blood Count 3.86 MC/CUMM (3.8-5.5); Red Cell Distribution Width 13.1 % (9.3-17.3); White Blood Count 9.9 T/CUMM (4-12)
[2019-06-15 05:15] LABS: Eosinophils 1 % (0-10); Lymphocytes 4 % (20-55); Nucleated Red Blood Cells 1 (0-5); Segmented Neutrophils 88 % (50-85); Total Cells Counted 100
[2019-06-15 05:16] LABS: Hypochromasia Slight; Macrocytosis Slight; Platelet Estimate Normal
[2019-06-15 05:30] LABS: Albumin 2.8 G/DL (3.4-5.0); Bilirubin,Total 0.5 MG/DL (0.2-1.0); Calcium 8.8 MG/DL (8.5-10.1); Osmolality,Calculated 286.1 MOS/KG (273-304); Risk Ratio 3.66; Total Protein 7.2 G/DL (6.4-8.3); VLDL CHOLESTEROL 19.8 MG/DL
[2019-06-15] MEDS: PIPERACILLIN/TAZOBACTAM 3,375 MG in SODIUM CHLORIDE 0.9% 100 ML IV SCH ×3 (05:50→21:13)
[2019-06-15 06:15] LABS: ABG PCO2 81.8 MM HG (35-48)
[2019-06-15] MEDS ORDERED: PANTOPRAZOLE 40 MG TABLET PO SCH (09:00)
[2019-06-15] MEDS: ENOXAPARIN 150 MG/ML SYRINGE SUBCUT SCH ×2 (09:15→21:14)
[2019-06-15] MEDS: FUROSEMIDE 40 MG/4 ML VIAL IV SCH ×2 (09:16→17:13)
[2019-06-15] MEDS: PANTOPRAZOLE 40 MG TABLET PO SCH (09:16)
[2019-06-15] MEDS ORDERED: LACTULOSE 20 GM/30 ML UDCUP PO PRN (11:35)
[2019-06-15] MEDS ORDERED: LACOSAMIDE 50 MG TABLET PO SCH (11:45)
[2019-06-15] MEDS ORDERED: FUROSEMIDE 20 MG TABLET PO SCH (12:00)
[2019-06-15] MEDS: SPIRONOLACTONE 25 MG TABLET PO SCH ×2 (14:57→21:15)
[2019-06-15] MEDS: THEOPHYLLINE 5.33 MG/ML 30 ML/BOTTLE PO SCH ×2 (14:57→21:13)
[2019-06-15] MEDS: DILTIAZEM 90 MG TABLET PO SCH ×2 (14:57→21:07)
[2019-06-15] MEDS: IBUPROFEN 400 MG TABLET PO SCH ×2 (14:58→21:07)
[2019-06-15] MEDS: POLYETHYLENE GLYCOL POWDER 17 GM PACK PO SCH (17:13)
[2019-06-15] MEDS: ALBUTEROL 2.5 MG/3 ML NEB RESP TX SCH (19:59)
[2019-06-15] MEDS: POTASSIUM CHLORIDE 20 MEQ/15 ML UDCUP PO SCH (21:06)
[2019-06-15] MEDS: QUEtiapine 25 MG TABLET PO SCH (21:15)
[2019-06-16 04:57] LABS: Basophils # 0.1 10*3/uL (0.0-0.2); Basophils % 0.7 % (0.0-0.8); Eosinophils # 0.4 10*3/uL (0.0-0.87); Eosinophils % 5.5 % (0.00-10.9); Hematocrit 37.4 VOL% (42.0-52.0); Hemoglobin 12.3 GM/DL (14.0-18.0); Immature Granulocytes % 0.8 %; Immature Granulocytes Absolute 0.06 #; Lymphocytes # 0.8 10*3/uL (1.4-4.0); Lymphocytes % 11.2 % (21.2-54.2); Mean Corpuscular HGB Conc 32.9 GM/DL (32-36); Mean Corpuscular Volume 102.5 FL (87-102); Mean Platelet Volume 11.3 FL (9.6-12.0); Monocytes % 10.4 % (1.7-12.7); Neutrophils % 71.4 % (38.7-73.9); Platelet Count 178 T/CUMM (130-400); Red Blood Count 3.65 MC/CUMM (3.8-5.5); Red Cell Distribution Width 12.6 % (9.3-17.3); White Blood Count 7.2 T/CUMM (4-12)
[2019-06-16 05:28] LABS: Calcium 8.9 MG/DL (8.5-10.1); Osmolality,Calculated 279.5 MOS/KG (273-304)
[2019-06-16] MEDS: PIPERACILLIN/TAZOBACTAM 3,375 MG in SODIUM CHLORIDE 0.9% 100 ML IV SCH ×3 (05:36→20:34)
[2019-06-16] MEDS: LEVOTHYROXINE 100 MCG TABLET PO SCH (06:38)
[2019-06-16] MEDS: ALBUTEROL 2.5 MG/3 ML NEB RESP TX SCH ×3 (07:22→19:54)
[2019-06-16] MEDS: QUEtiapine 25 MG TABLET PO SCH ×2 (09:59→20:37)
[2019-06-16] MEDS: DILTIAZEM 90 MG TABLET PO SCH ×3 (09:59→20:36)
[2019-06-16] MEDS: IBUPROFEN 400 MG TABLET PO SCH ×3 (09:59→20:35)
[2019-06-16] MEDS: LACOSAMIDE 50 MG TABLET PO SCH ×2 (09:59→20:37)
[2019-06-16] MEDS: PANTOPRAZOLE 40 MG TABLET PO SCH (10:00)
[2019-06-16] MEDS: POLYETHYLENE GLYCOL POWDER 17 GM PACK PO SCH (10:00)
[2019-06-16] MEDS: FUROSEMIDE 40 MG/4 ML VIAL IV SCH ×2 (10:00→15:23)
[2019-06-16] MEDS: SPIRONOLACTONE 25 MG TABLET PO SCH ×2 (10:00→20:37)
[2019-06-16] MEDS: POTASSIUM CHLORIDE 20 MEQ/15 ML UDCUP PO SCH ×2 (10:00→20:33)
[2019-06-16] MEDS: ENOXAPARIN 150 MG/ML SYRINGE SUBCUT SCH ×2 (11:47→20:34)
[2019-06-16] MEDS: THEOPHYLLINE 5.33 MG/ML 30 ML/BOTTLE PO SCH ×3 (11:47→20:37)
[2019-06-16] MEDS: VANCOMYCIN INJ 2,000 MG in SODIUM CHLORIDE 0.9% 500 ML IV SCH ×2 (15:22→18:45)
[2019-06-16] MEDS: ALPRAZolam 0.5 MG TABLET PO PRN ×2 (17:09→23:04)
[2019-06-17] MEDS: ALPRAZolam 0.5 MG TABLET PO PRN (05:12)
[2019-06-17] MEDS: PIPERACILLIN/TAZOBACTAM 3,375 MG in SODIUM CHLORIDE 0.9% 100 ML IV SCH ×3 (05:13→21:15)
[2019-06-17 05:22] LABS: Basophils # 0.1 10*3/uL (0.0-0.2); Basophils % 0.8 % (0.0-0.8); Eosinophils # 0.5 10*3/uL (0.0-0.87); Eosinophils % 6.7 % (0.00-10.9); Hemoglobin 12.7 GM/DL (14.0-18.0); Immature Granulocytes % 0.9 %; Immature Granulocytes Absolute 0.07 #; Lymphocytes # 0.7 10*3/uL (1.4-4.0); Lymphocytes % 9.4 % (21.2-54.2); Mean Corpuscular HGB Conc 32.6 GM/DL (32-36); Mean Corpuscular Volume 103.4 FL (87-102); Mean Platelet Volume 10.3 FL (9.6-12.0); Monocytes % 9.3 % (1.7-12.7); Neutrophils % 72.9 % (38.7-73.9); Platelet Count 196 T/CUMM (130-400); Red Blood Count 3.77 MC/CUMM (3.8-5.5); Red Cell Distribution Width 12.6 % (9.3-17.3); White Blood Count 7.8 T/CUMM (4-12)
[2019-06-17 05:40] LABS: Calcium 8.7 MG/DL (8.5-10.1); Osmolality,Calculated 281.4 MOS/KG (273-304)
[2019-06-17] MEDS: LEVOTHYROXINE 100 MCG TABLET PO SCH (07:08)
[2019-06-17] MEDS: VANCOMYCIN INJ 2,000 MG in SODIUM CHLORIDE 0.9% 500 ML IV SCH ×2 (07:08→17:52)
[2019-06-17] MEDS: ALBUTEROL 2.5 MG/3 ML NEB RESP TX SCH ×3 (07:59→19:34)
[2019-06-17] MEDS: DILTIAZEM 90 MG TABLET PO SCH ×3 (11:20→21:11)
[2019-06-17] MEDS: IBUPROFEN 400 MG TABLET PO SCH ×3 (11:21→21:11)
[2019-06-17] MEDS: QUEtiapine 25 MG TABLET PO SCH ×2 (11:22→21:11)
[2019-06-17] MEDS: SPIRONOLACTONE 25 MG TABLET PO SCH (11:22)
[2019-06-17] MEDS: LACOSAMIDE 50 MG TABLET PO SCH ×2 (11:23→21:11)
[2019-06-17] MEDS: PANTOPRAZOLE 40 MG TABLET PO SCH (11:23)
[2019-06-17] MEDS: POTASSIUM CHLORIDE 20 MEQ/15 ML UDCUP PO SCH ×2 (11:23→21:12)
[2019-06-17] MEDS: THEOPHYLLINE 5.33 MG/ML 30 ML/BOTTLE PO SCH ×3 (11:29→21:12)
[2019-06-17] MEDS: LINACLOTIDE 145 MCG CAPSULE PO SCH (11:37)
[2019-06-17] MEDS: FUROSEMIDE 40 MG/4 ML VIAL IV SCH ×2 (11:42→16:10)
[2019-06-17] MEDS: ENOXAPARIN 150 MG/ML SYRINGE SUBCUT SCH (11:44)
[2019-06-17] MEDS: POLYETHYLENE GLYCOL POWDER 17 GM PACK PO SCH (11:48)
[2019-06-17] MEDS: ALPRAZolam 0.5 MG TABLET PO SCH ×2 (15:24→21:12)
[2019-06-17] MEDS: MENTHOL/ZINC OXIDE OINT 71 GM JAR TOP SCH (21:23)
[2019-06-18] MEDS: PIPERACILLIN/TAZOBACTAM 3,375 MG in SODIUM CHLORIDE 0.9% 100 ML IV SCH ×3 (04:43→21:00)
[2019-06-18] MEDS: ALBUTEROL 2.5 MG/3 ML NEB RESP TX SCH ×3 (07:27→20:51)
[2019-06-18] MEDS: LEVOTHYROXINE 100 MCG TABLET PO SCH (07:35)
[2019-06-18] MEDS: LINACLOTIDE 145 MCG CAPSULE PO SCH (07:35)
[2019-06-18] MEDS: DILTIAZEM 90 MG TABLET PO SCH (09:04)
[2019-06-18] MEDS: LACOSAMIDE 50 MG TABLET PO SCH ×2 (09:05→21:00)
[2019-06-18] MEDS: SPIRONOLACTONE 100 MG TABLET PO SCH (09:05)
[2019-06-18] MEDS: MENTHOL/ZINC OXIDE OINT 71 GM JAR TOP SCH ×2 (09:06→21:01)
[2019-06-18] MEDS: IBUPROFEN 400 MG TABLET PO SCH ×3 (09:06→21:01)
[2019-06-18] MEDS: QUEtiapine 25 MG TABLET PO SCH ×2 (09:06→21:01)
[2019-06-18] MEDS: PANTOPRAZOLE 40 MG TABLET PO SCH (09:06)
[2019-06-18] MEDS: ALPRAZolam 0.5 MG TABLET PO SCH ×3 (09:07→21:00)
[2019-06-18] MEDS: POLYETHYLENE GLYCOL POWDER 17 GM PACK PO SCH (09:07)
[2019-06-18] MEDS: ENOXAPARIN 40 MG/0.4 ML SYRINGE SUBCUT SCH (09:07)
[2019-06-18] MEDS: FUROSEMIDE 40 MG/4 ML VIAL IV SCH ×2 (09:08→15:39)
[2019-06-18] MEDS: POTASSIUM CHLORIDE 20 MEQ/15 ML UDCUP PO SCH ×2 (09:08→21:00)
[2019-06-18] MEDS: THEOPHYLLINE 5.33 MG/ML 30 ML/BOTTLE PO SCH ×3 (09:09→21:00)
[2019-06-18] MEDS ORDERED: PNEUMOCOCCAL VACCINE (13 VALENT) 0.5 ML SYRINGE IM ONE (09:43)
[2019-06-18 10:12] LABS: Basophils # 0.1 10*3/uL (0.0-0.2); Eosinophils # 0.7 10*3/uL (0.0-0.87); Eosinophils % 10.2 % (0.00-10.9); Hematocrit 39.6 VOL% (42.0-52.0); Hemoglobin 13.1 GM/DL (14.0-18.0); Immature Granulocytes % 3.2 %; Immature Granulocytes Absolute 0.23 #; Lymphocytes # 0.6 10*3/uL (1.4-4.0); Lymphocytes % 8.8 % (21.2-54.2); Mean Corpuscular HGB Conc 33.1 GM/DL (32-36); Mean Corpuscular Volume 101.3 FL (87-102); Mean Platelet Volume 10.5 FL (9.6-12.0); Monocytes % 8.5 % (1.7-12.7); Neutrophils % 68.3 % (38.7-73.9); Platelet Count 211 T/CUMM (130-400); Red Blood Count 3.91 MC/CUMM (3.8-5.5); Red Cell Distribution Width 12.7 % (9.3-17.3); White Blood Count 7.1 T/CUMM (4-12)
[2019-06-18 10:40] LABS: Calcium 8.8 MG/DL (8.5-10.1); Osmolality,Calculated 276.7 MOS/KG (273-304)
[2019-06-18 11:30] LABS: Calcium 8.8 MG/DL (8.5-10.1); Osmolality,Calculated 281.4 MOS/KG (273-304)
[2019-06-18] MEDS ORDERED: LACOSAMIDE 50 MG TABLET PO ONE (13:10)
[2019-06-18] MEDS: carvediloL 3.125 MG TABLET PO SCH (21:01)
[2019-06-19] MEDS: PIPERACILLIN/TAZOBACTAM 3,375 MG in SODIUM CHLORIDE 0.9% 100 ML IV SCH (05:09)
[2019-06-19 06:08] LABS: Osmolality,Calculated 281.4 MOS/KG (273-304)
[2019-06-19] MEDS: LEVOTHYROXINE 100 MCG TABLET PO SCH (06:47)
[2019-06-19] MEDS: ALBUTEROL 2.5 MG/3 ML NEB RESP TX SCH (07:55)
[2019-06-19] MEDS ORDERED: POLYETHYLENE GLYCOL POWDER 17 GM PACK PO SCH (09:00)
[2019-06-19] MEDS ORDERED: LACTULOSE 20 GM/30 ML UDCUP PO SCH (09:00)
[2019-06-19] MEDS: LINACLOTIDE 145 MCG CAPSULE PO SCH (09:11)
[2019-06-19] MEDS: POTASSIUM CHLORIDE 20 MEQ/15 ML UDCUP PO SCH (09:11)
[2019-06-19] MEDS: ALPRAZolam 0.5 MG TABLET PO SCH (09:12)
[2019-06-19] MEDS: QUEtiapine 25 MG TABLET PO SCH (09:12)
[2019-06-19] MEDS: SPIRONOLACTONE 100 MG TABLET PO SCH (09:12)
[2019-06-19] MEDS: LACOSAMIDE 50 MG TABLET PO SCH (09:12)
[2019-06-19] MEDS: carvediloL 3.125 MG TABLET PO SCH (09:12)
[2019-06-19] MEDS: THEOPHYLLINE 5.33 MG/ML 30 ML/BOTTLE PO SCH (09:12)
[2019-06-19] MEDS: POLYETHYLENE GLYCOL POWDER 17 GM PACK PO SCH (09:12)
[2019-06-19] MEDS: PANTOPRAZOLE 40 MG TABLET PO SCH (09:12)
[2019-06-19] MEDS: ENOXAPARIN 40 MG/0.4 ML SYRINGE SUBCUT SCH (09:12)
[2019-06-19] MEDS: IBUPROFEN 400 MG TABLET PO SCH (09:12)
[2019-06-19] MEDS: FUROSEMIDE 40 MG/4 ML VIAL IV SCH (09:13)
[2019-06-19] MEDS: MENTHOL/ZINC OXIDE OINT 71 GM JAR TOP SCH (09:13)
[2019-06-19] MEDS ORDERED: POTASSIUM CHLORIDE 20 MEQ/15 ML UDCUP PO ONE (11:04)
[2019-06-19 11:55] VITALS: BP 118/78
[2019-06-19] MEDS ORDERED: CEFDINIR 300 MG CAPSULE PO SCH (21:00)
== END 2019-06-19 15:07 | disposition hospice, home (50) | DRG 602 ==
LOC: EDBD → EDUNIT# → N.ED 15:12 → SUATTDRO 20:20 → N.EDINP 20:20 → N.5E 21:34
PROVIDERS: ADMIT Internal Medicine; ATTEND Hospitalist